=== PATIENT | male | born 1970 | race Caucasian/White ===

== ENCOUNTER → 2018-01-12 | Outpatient (CLI) | payer MEDICAID ==
[~2018-01-12] MED LIST: CEPH-507 PO; CYCL10TA9 PO; DIVA250T2 PO; DOXY100C2 PO; HYDR-3730 PO; HYDR-3812 PO; HYDR-3875 PO; NAPR-243 PO; PRD50T PO; RT-ALBUINH IH; [UNRECOGNIZED DRUG - CODE] PO
--- NOTE | 2018-01-12 14:10 | Diagnostic Imaging Report ---
INDICATION: Right scrotal mass. TECHNIQUE: Multiple Real-time grayscale images were obtained over the scrotum in various projections bilaterally. FINDINGS: The right testicle measures 4.4 x 3.1 x 3.3 cm and the left testicle measures 4.5 x 2.0 x 2.6 cm. Both testes demonstrate homogeneous echotexture. No discrete testicular mass is seen. There is blood flow bilaterally. There is a simple appearing cyst located in the right testicle measuring approximately 11 mm x 6 mm x 7 mm. There is also a large cyst superior to the right testicle measuring 5.1 x 6.7 x 7.7 cm. No other abnormality is seen. IMPRESSION: 1. Simple right testicular cyst. No solid testicular mass or vascular compromise is seen. 2. Large cyst located superior to the right testicle, perhaps a large epididymal head cyst. 3. No other abnormality is seen. Dictated by: Dictated on workstation # [id number]
== END ==
LOC: RAD 11:34
PROVIDERS: ATTEND Urology
DX: N44.2 Benign cyst of testis (principal)
CPT/HCPCS: 76870

== ENCOUNTER 2018-01-18 07:08 | Day surgery (SDC) | payer MEDICAID ==
[~2018-01-18] VITALS: Ht 193 cm; Wt 102.1 kg
[~2018-01-18 07:08] MED LIST changes: -HYDR-3812 PO; -HYDR-3875 PO; -RT-ALBUINH IH
--- NOTE | 2018-01-18 07:15 | Progress Note-Pre Operative ---
Pre-Operative Progress Note H&P Reviewed The H&P was reviewed, patient examined and no changes noted. Date Seen by Provider: January 18, 2018 Time Seen by Provider: 07:40 Date H&P Reviewed: January 18, 2018 Time H&P Reviewed: 07:40 Pre-Operative Diagnosis: RT SPERMATOCELE DANDRE KOHLER MD January 18, 2018 7:15 am
[2018-01-18] MEDS ORDERED: LACTATED RINGERS 1,000 ML IV PRN (07:21)
[2018-01-18 07:25] VITALS: BP 142/82
[2018-01-18] MEDS ORDERED: ceFAZolin INJECTION 1,000 MG in NS (IVPB) 50 ML IV ONE (07:30)
--- NOTE | 2018-01-18 07:42 | Progress Note-Post Operative ---
Post-Operative Progess Note Surgeon (s)/Diamond Sizer (s) Surgeon DANDRE KOHLER MD Diamond Sizer: N/A Pre-Operative Diagnosis RT SPERMATOCELE Post-Operative Diagnosis SAME Procedure & Operative Findings Date of Procedure 01/18/18 Procedure Performed/Findings RT SPERMATOCELECTOMY Anesthesia Type GENERAL Estimated Blood Loss Estimated blood loss (mL): LESS THAN 50 CC Specimens/Packing Specimens Removed RT SPERMATOCELE SAC Packin/4# DANDRE CASTELLANOS MD January 18, 2018 7:42 am
[2018-01-18] MEDS ORDERED: CATHETER FLUSH 10 ML SYR IV PRN (07:45)
--- NOTE | 2018-01-18 07:45 | Discharge Inst-Urology ---
Discharge Inst-Urology Discharge Medications New, Converted, or Re-newed RX: RX on Chart Patient Instructions/Follow Up Plan Please make appointment to been seen in office in 3 weeks. Rest till theN Office tomorrow at 9am to DC drain, may shower after that, no bath Keep bowels soft and moving Scrotal support for 2 weeks Ice to scrotum in RR and at home for 6 hours and then PRN Increase oral fluids for 48 hours and then as needed If questions or concerns contact your physician Or seek help at emergency department. DANDRE KOHLER MD January 18, 2018 7:45 am
[2018-01-18] MEDS ORDERED: RT-ALBUTEROL SULF 2.5 MG/3 ML PRE-MIX VIAL INH ONE (08:00)
[2018-01-18] MEDS ORDERED: HYDR-3812 PO (08:11)
[2018-01-18] MEDS ORDERED: RT-ALBUINH IH (08:11)
[2018-01-18] MEDS ORDERED: proPOfol 200 MG/20 ML (DIPRIVAN) VIAL IV ONE (08:24)
[2018-01-18] MEDS ORDERED: MIDAZOLAM 2 MG/2 ML (VERSED) VIAL ONE (08:24)
[2018-01-18] MEDS ORDERED: fentaNYL INJECTION 100 MCG/2 ML AMP ONE ×2 (08:24→08:58)
[2018-01-18] MEDS ORDERED: LIDOCAINE PF 2% 5 ML (XYLOCAINE) VIAL ONE (08:24)
[2018-01-18] MEDS ORDERED: SEVOFLURANE (ULTANE) 15 ML INHAL SOLN ONE ×3 (08:42→09:44)
[2018-01-18] MEDS ORDERED: ONDANSETRON 4 MG/2 ML (SDV) Z0FRAN ONE (09:11)
[2018-01-18] MEDS ORDERED: DEXAMETHASONE 10 MG/ML (DECADRON) 1 ML VIAL ONE (09:11)
[2018-01-18] MEDS ORDERED: morphine INJ 10 MG/ML 1ML (SYR OR VIAL) ONE (09:38)
[2018-01-18] MEDS: morphine INJ 10 MG/ML 1ML (SYR OR VIAL) IVP PRN ×2 (09:45→09:50)
[2018-01-18] MEDS ORDERED: ONDANSETRON 4 MG/2 ML (SDV) Z0FRAN IVP PRN (09:45)
[2018-01-18] MEDS ORDERED: fentaNYL INJECTION 100 MCG/2 ML AMP IVP PRN (09:45)
[2018-01-18 10:20] VITALS: BP 143/96
--- OUTSIDE RECORDS SUMMARY | 2018-01-18 10:25 | XMS REPORT | Continuity of Care Document ---
Author Author [facility] of [facility] of [facility] Address Unknown Phone Unavailable Allergies Active Description Code Type Severity Reaction Onset Reported/Identified Relationship to Patient Clinical Status Yes codeine [id number] Drug Allergy Mild N/A 07/17/2009 Yes TAPE TAPE Mild N/ A 07/17/2009 Yes aspirin Drug Allergy N/A N/A 10/11/2009 Yes latex OA N/A N/A 10/11/2009 Yes ofloxacin Drug Allergy N/A N/A 10/11/2009 Yes Penicillins Drug Allergy N/A N/A 10/11/2009 Yes tape OA N/A N/A 10/11/2009 Yes ofloxacin [id number] Drug Allergy Mild N/A 01/13/2018 Yes Penicillins [id number] Drug Allergy Unknown N/A 01/13/2018 Medications There is no data. Problems Date Dx Coded Attending Type Code Diagnosis Diagnosed By 10/11/2009 JOEL STARKEY MD 345.9 SEIZURE DISORDER 10/11/2009 JOEL STARKEY MD 586 RENAL FAILURE UNSPECIFIED 03/20/2010 JOEL STARKEY MD 345.90 EPILEPSY, UNSPECIFIED, WITHOUT MENTION OF INTRACTABLE EPILEPSY 06/08/2012 Ot 466.0 06/08/2012 Ot 491.21 06/08/2012 Ot 780.60 09/14/2013 JOEL STARKEY MD 789.00 ABDOMINAL PAIN UNSPECIFIED SITE 11/17/2015 JONI JOLLEY MD Ot N44.2 BENIGN CYST OF TESTIS 11/17/2015 JONI JOLLEY MD Ot N45.3 EPIDIDYMO-ORCHITIS 11/19/2015 JONI JOLLEY MD Ot N44.2 11/19/2015 JONI JOLLEY MD Ot N45.3 12/27/2017 JOBY GALLEGOS Ot F17.200 NICOTINE DEPENDENCE, UNSPECIFIED, UNCOMP 12/27/2017 JOBY GALLEGOS Ot G40.909 EPILEPSY, UNSP, NOT INTRACTABLE, WITHOUT 12/27/2017 JOBY GALLEGOS Ot I25.2 OLD MYOCARDIAL INFARCTION 12/27/2017 JOBY GALLEGOS Ot J44.9 CHRONIC OBSTRUCTIVE PULMONARY DISEASE, U 12/27/2017 JOBY GALLEGOS Ot M25.511 PAIN IN RIGHT SHOULDER 12/27/2017 JOBY GALLEGOS Ot W01.0XXA FALL SAME LEV FROM SLIP/TRIP W/O STRIKE 12/27/2017 JOBY GALLEGOS Ot Y92.[address] 12/27/2017 JOBY GALLEGOS Ot Y93.01 ACTIVITY, WALKING, MARCHING AND HIKING 12/27/2017 JOBY GALLEGOS Ot Z85.068 PERSONAL HISTORY OF MALIGNANT NEOPLASM O 12/27/2017 JOBY GALLEGOS Ot Z87.442 PERSONAL HISTORY OF URINARY CALCULI 12/27/2017 JOBY GALLEGOS Ot Z88.0 ALLERGY STATUS TO PENICILLIN 12/27/2017 JOBY GALLEGOS Ot Z88.1 ALLERGY STATUS TO OTHER ANTIBIOTIC AGENT 12/27/2017 JOBY GALLEGOS Ot Z88.5 ALLERGY STATUS TO NARCOTIC AGENT STATUS 12/27/2017 JOBY GALLEGOS Ot Z91.048 OTHER NONMEDICINAL SUBSTANCE ALLERGY STA 12/27/2017 JOBY GALLEGOS Ot Z95.5 PRESENCE OF CORONARY ANGIOPLASTY IMPLANT 12/29/2017 JOBY GALLEGOS Ot F17.200 NICOTINE DEPENDENCE, UNSPECIFIED, UNCOMP 12/29/2017 JOBY GALLEGOS Ot G40.909 EPILEPSY, UNSP, NOT INTRACTABLE, WITHOUT 12/29/2017 JOBY GALLEOGS Ot I25.2 OLD MYOCARDIAL INFARCTION 12/29/2017 JOBY GALLEGOS Ot J44.9 CHRONIC OBSTRUCTIVE PULMONARY DISEASE, U 12/29/2017 JOBY GALLEGOS Ot M25.511 PAIN IN RIGHT SHOULDER 12/29/2017 JOBY GALLEGOS Ot W01.0XXA FALL SAME LEV FROM SLIP/TRIP W/O STRIKE 12/29/2017 JOBY GALLEGOS Ot Y92.[address] 12/29/2017 JOBY GALLEGOS Ot Y93.01 ACTIVITY, WALKING, MARCHING AND HIKING 12/29/2017 JOBY GALLEGOS Ot Z85.068 PERSONAL HISTORY OF MALIGNANT NEOPLASM O 12/29/2017 JOBY GALLEGOS Ot Z87.442 PERSONAL HISTORY OF URINARY CALCULI 12/29/2017 JOBY GALLEGOS Ot Z88.0 ALLERGY STATUS TO PENICILLIN 12/29/2017 JOBY GALLEGOS Ot Z88.1 ALLERGY STATUS TO OTHER ANTIBIOTIC AGENT 12/29/2017 JOBY GALLEGOS Ot Z88.5 ALLERGY STATUS TO NARCOTIC AGENT STATUS 12/29/2017 JOBY GALLEGOS Ot Z91.048 OTHER NONMEDICINAL SUBSTANCE ALLERGY STA 12/29/2017 JOBY GALLEGOS Ot Z95.5 PRESENCE OF CORONARY ANGIOPLASTY IMPLANT 01/13/2018 DANDRE KOHLER MD Ot N44.2 BENIGN CYST OF TESTIS 01/13/2018 DANDRE KOHLER MD Ot N44.2 BENIGN CYST OF TESTIS 01/13/2018 DANDRE KOHLER MD, Ot N44.2 BENIGN CYST OF TESTIS Procedures There is no data. Results There is no data. Encounters ACCT No. Visit Date/Time Discharge Status Pt. Type Provider Facility Loc./Unit Complaint [id number] 09/14/2013 16:06:00 09/14/2013 23:59:59 CLS Outpatient JOEL STARKEY MD [id number] 01/13/2018 13:30:00 01/13/2018 16:50:00 DIS Outpatient DANDRE KOHLER MD [facility] PREOP RIGHT SPERMATOCELECTOMY [id number] 01/12/2018 11:34:00 01/12/2018 23:59:59 CLS Outpatient DANDRE KOHLER MD [facility] RAD SCROTAL MASS [id number] 12/27/2017 18:55:00 12/27/2017 21:28:00 DIS Emergency JOBY GALLEGOS [facility] ER POST SHOULDER SURGERY/ FALL/R SHOULDER INJ [id number] 11/17/2015 15:34:00 11/17/2015 17:41:00 DIS Emergency JONI JOLLEY MD [facility] ER TESTICLE PAIN [id number] 01/18/2018 07:42:00 Document Registration [id number] 06/08/2012 11:18:00 Document Registration [id number] 05/16/2014 08:52:24 05/16/2014 08:52:24 DIS Outpatient [id number] 05/12/2017 15:00:00 05/12/2017 23:59:59 CLS Outpatient IVONNE LAGUNA[facility]
--- NOTE | 2018-01-18 10:41 | Anesthesia-General Post-Op ---
General Patient Condition Mental Status/LOC: Same as Preop Cardiovascular: Satisfactory Nausea/Vomiting: Absent Respiratory: Satisfactory Pain: Controlled Complications: Absent Post Op Complications Complications None Follow Up Care/Instructions Patient Instructions None needed. Anesthesia/Patient Condition Patient Condition Patient is doing well, no complaints, stable vital signs, no apparent adverse anesthesia problems. No complications reported per nursing. D/C home per [facility] Criteria: Yes MANJEET WEBB CRNA January 18, 2018 10:41
[2018-01-18] MEDS ORDERED: HYDR-3875 PO (10:42)
[2018-01-18] MEDS ORDERED: CEPH-507 PO (10:42)
[2018-01-18 10:50] VITALS: BP 136/75
[2018-01-18] MEDS ORDERED: HYDROcodone/APAP 7.5 MG/325 MG (LORTAB, LORCET PLUS) TABLET PO ONE (11:15)
[2018-01-18 11:20] VITALS: BP 128/83
[2018-01-18 12:00] VITALS: BP 128/83
--- NOTE | 2018-01-18 14:40 | OPERATIVE REPORT ---
DATE OF SERVICE: 01/18/2018 PREOPERATIVE DIAGNOSIS: Right large spermatocele. POSTOPERATIVE DIAGNOSIS: Right large spermatocele. OPERATION PERFORMED: Right spermatocelectomy. SURGEON: Dandre Kohler MD ANESTHESIA: General. COMPLICATIONS: None. DESCRIPTION OF PROCEDURE: Under satisfactory general anesthesia, the patient in supine position, genitalia abdomen and thigh were prepped and draped in the usual sterile fashion. An incision was made in the median raphe carried through the right scrotal compartment. Bleeders were cauterized as the dissection was proceeding. The large spermatocele and testicle was delivered into the wound. The spermatocele was dissected and excised completely. The feeding vessels were suture and ligated with 3-0 chromic catgut. The edges of the coverage of over the spermatocele were sutured with running 3-0 chromic catgut to prevent recurrence and for hemostasis. Hemostasis was complete. The testicle looked fine as well as the epididymis and were put back into the right scrotal compartment, which was drained with quarter of an inch Sandra drain, brought through a separate stab wound in the bottom of the incision and secured in position with 3-0 chromic catgut suture. Closure was performed in 2 layers, first the dartos with a running 3-0 chromic catgut avoiding the drain and then the skin was interrupted 4-0 Vicryl. Telfa, fluffs and scrotal support was applied. Estimated blood loss was negligible. Needle, sponge and instrument counts correct x2. The patient tolerated the procedure well and anesthesia well and was sent to recovery room in stable condition wearing a scrotal support. Job ID: [id number] DocumentID: [id number] Dictated Date: 01/18/2018 09:47:10 Back Tender Paper Machine Date: 01/18/2018 14:40:12 Dictated By: DANDRE KOHLER MD
== END 2018-01-18 12:00 | disposition home or self-care (01) ==
LOC: SDC 07:08
PROVIDERS: ATTEND Urology
DX: N43.41 Spermatocele of epididymis, single (principal); I25.10 Atherosclerotic heart disease of native coronary artery without angina pectoris; J44.9 Chronic obstructive pulmonary disease, unspecified; F17.210 Nicotine dependence, cigarettes, uncomplicated; G40.909 Epilepsy, unspecified, not intractable, without status epilepticus; Z95.5 Presence of coronary angioplasty implant and graft
CPT/HCPCS: 87081; 88304; 94640

== ENCOUNTER 2018-11-26 22:00 | Emergency (ER) | payer MEDICAID ==
[~2018-11-26] VITALS: Ht 193 cm; Wt 102.1 kg
[~2018-11-26 22:00] MED LIST changes: +HYDR-3812 PO; +HYDR-3875 PO; +RT-ALBUINH IH
--- OUTSIDE RECORDS SUMMARY | 2018-11-26 22:08 | XMS REPORT | Continuity of Care Document ---
Author Author [facility] of [facility] C[facility] of [facility] Address Unknown Phone Unavailable Allergies Active Description Code Type Severity Reaction Onset Reported/Identified Relationship to Patient Clinical Status Yes codeine [id number] Drug Allergy Mild N/A 07/17/2009 Yes TAPE TAPE Mild N/ A 07/17/2009 Yes aspirin Drug Allergy N/A N/A 10/11/2009 Yes latex OA N/A N/A 10/11/2009 Yes ofloxacin Drug Allergy N/A N/A 10/11/2009 Yes Penicillins Drug Allergy N/A N/A 10/11/2009 Yes tape OA N/A N/A 10/11/2009 Yes ofloxacin [id number] Drug Allergy Mild N/A 01/13/2018 Yes Penicillins [id number] Drug Allergy Unknown N/A 01/13/2018 Yes aspirin [id number] Drug Allergy Unknown N/A 01/18/2018 Yes latex [id number] Drug Allergy Unknown N/A 01/18/2018 Yes Penicillins [id number] Drug Allergy Unknown Pt has received 01/18/2018 Medications There is no data. Problems Date Dx Coded Attending Type Code Diagnosis Diagnosed By 10/11/2009 JOEL STARKEY MD 345.9 SEIZURE DISORDER 10/11/2009 JOEL STARKEY MD 586 RENAL FAILURE UNSPECIFIED 03/20/2010 JOEL STAKREY MD 345.90 EPILEPSY, UNSPECIFIED, WITHOUT MENTION OF [...] EPILEPSY, UNSP, NOT INTRACTABLE, WITHOUT 12/29/2017 JOBY GALLEGOS Ot I25.2 OLD MYOCARDIAL INFARCTION 12/29/2017 JOBY [...] OF TESTIS 01/13/2018 DANDRE KOHLER MD Ot N43.41 SPERMATOCELE OF EPIDIDYMIS, SINGLE 01/13/2018 ADNDRE KOHLER MD Ot Z01.818 ENCOUNTER FOR OTHER PREPROCEDURAL EXAMIN 01/17/2018 DANDRE KOHLER MD Ot N43.41 SPERMATOCELE OF EPIDIDYMIS, SINGLE 01/17/2018 DANDRE KOHLER MD Ot Z01.818 ENCOUNTER FOR OTHER PREPROCEDURAL EXAMIN 01/18/2018 DANDRE KOHLER MD Ot N44.2 BENIGN CYST OF TESTIS 01/18/2018 DANDRE KOHLER MD Ot N44.2 BENIGN CYST OF TESTIS 01/18/2018 DANDRE KOHLER MD Ot F17.210 NICOTINE DEPENDENCE, CIGARETTES, UNCOMPL 01/18/2018 DANDRE KOHLER MD Ot G40.909 EPILEPSY, UNSP, NOT INTRACTABLE, WITHOUT 01/18/2018 DANDRE KOHLER MD, Ot I25.10 ATHSCL HEART DISEASE OF [place] CORONARY 01/18/2018 DANDRE KOHLER MD Ot J44.9 CHRONIC OBSTRUCTIVE PULMONARY DISEASE, U 01/18/2018 DANDRE KOHLER MD Ot N43.41 SPERMATOCELE OF EPIDIDYMIS, SINGLE 01/18/2018 DANDRE KOHLER MD Ot Z95.5 PRESENCE OF CORONARY ANGIOPLASTY IMPLANT 01/27/2018 DANDRE KOHLER MD Ot N44.2 BENIGN CYST OF TESTIS Procedures There is no data. Results Test Result Range Methicillin resistant Staphylococcus aureus (MRSA) screening culture - 07:40 Methicillin resistant Staphylococcus aureus (MRSA) screening culture NEG NRG Encounters ACCT No. Visit Date/Time Discharge Status Pt. Type Provider Facility Loc./Unit Complaint [id number] 09/14/2013 16:06:00 09/14/2013 23:59:59 CLS Outpatient JOEL STARKEY MD [id number] 01/18/2018 07:08:00 01/18/2018 12:00:00 DIS Outpatient DANDRE KOHLER MD [facility] SDC RIGHT SPERMATOCELE [id number] 01/13/2018 13:30:00 01/13/2018 16:50:00 DIS Outpatient DANDRE KOHLER MD [facility] PREOP RIGHT SPERMATOCELECTOMY [id number] 01/12/2018 11:34:00 01/12/2018 23:59:59 CLS Outpatient DANDRE KOHLER MD [facility] RAD SCROTAL MASS [id number] 12/27/2017 18:55:00 12/27/2017 21:28:00 DIS Emergency JOBY GALLEGOS [facility] ER POST SHOULDER SURGERY/ FALL/R SHOULDER INJ [id number] 11/17/2015 15:34:00 11/17/2015 17:41:00 DIS Emergency JONI JOLLEY MD [facility] ER TESTICLE PAIN [id number] 06/08/2012 11:18:00 Document Registration [id number] 05/16/2014 08:52:24 05/16/2014 08:52:24 DIS Outpatient [id number] 05/12/2017 15:00:00 05/12/2017 23:59:59 CLS Outpatient IVONNE LAGUNA, ALEX [facility]ta [facility]
[2018-11-26] MEDS ORDERED: RT-ALBUINH INH (22:21)
[2018-11-26] MEDS ORDERED: IBUP-1780 PO (22:21)
[2018-11-26] MEDS ORDERED: BUDE10.2 IH (22:21)
[2018-11-26] MEDS ORDERED: HYDR-4226 PO (22:21)
[2018-11-26] MEDS ORDERED: CLIN300C11 PO (22:21)
[2018-11-26] MEDS ORDERED: CLINDAMYCIN 150 MG (CLEOCIN) CAP PO ONE (22:30)
[2018-11-26] MEDS ORDERED: IBUPROFEN 800 MG (MOTRIN) TAB PO ONE (22:30)
[2018-11-26] MEDS ORDERED: HYDROcodone/APAP 5 MG/325 MG (LORTAB) TAB PO ONE (22:30)
--- NOTE | 2018-11-26 22:38 | ED General ---
General Stated Complaint: FACIAL INJURY/HEADACHE Source of Information: Patient History of Present Illness Date Seen by Provider: Nov 26, 2018 Time Seen by Provider: 22:35 Initial Comments Patient is a 48-year-old male who presents to the emergency department with dental pain. He states he sustained a minor fall yesterday. He had a broken tooth in the back of his lower right jaw which had been cavitation is for some time. He thinks he struck this tooth and further broke it when he fell. He feels like it there is some infection developing around it. No fever or chills. He has some diffuse headaches but no vision changes or nausea or vomiting. No other complaints today. Patient states he can see a dentist but will not be till 2 days from now. Allergies and Home Medications Allergies Coded Allergies: ofloxacin (Unverified Allergy, Mild, 01/13/18) Penicillins (Unverified Adverse Reaction, Unknown, Pt has received Ceftriaxone in the past, 01/18/18) aspirin (Unverified Adverse Reaction, Unknown, 01/18/18) latex (Unverified Adverse Reaction, Unknown, 01/18/18) Uncoded Allergies: TAPE (Allergy, Mild, 07/17/09) Home Medications Albuterol Sulfate 1 Puff Puff, 2 PUFF IH Q4H, (Reported) 1 PUFF = 90 MCG Albuterol Sulfate 1 Puff Puff, 2 PUFF INH Q4H 1 PUFF = 90 MCG Prescribed by: TERESO LOMELI on 11/26/182220 Budesonide/Formoterol Fumarate 10.2 Gm Hfa.aer.ad, 2 PUFF IH BID Prescribed by: TERESO LOMELI on 11/26/182220 Cephalexin 500 Mg Capsule, 500 MG PO BID Prescribed by: JAZ DEL TORO on 01/18/18 104 Clindamycin HCl 300 Mg Capsule, 300 MG PO QID Prescribed by: TERESO LOMELI on 11/26/182220 Hydrocodone/Acetaminophen 1 Each Tablet, 1-2 EACH PO Q4H PRN for PAIN-MODERATE Prescribed by: JAZ DEL TORO on 01/18/18 104 Hydrocodone/Acetaminophen 1 Each Tablet, 2 TAB PO Q6H Prescribed by: TERESO LOMELI on 11/26/182220 Ibuprofen 800 Mg Tablet, 800 MG PO Q8H PRN for PAIN Prescribed by: TERESO LOMELI on 11/26/18 2221 Patient Home Medication List Home Medication List Reviewed: Yes Review of Systems Review of Systems Constitutional: no symptoms reported EENTM: see HPI Respiratory: no symptoms reported Genitourinary: no symptoms reported Musculoskeletal: no symptoms reported Skin: no symptoms reported Past Tiruhqr-Kbaamg-Sfcfux Hx Patient Social History Type Used: Cigarettes Recent Foreign Travel: No Contact w/Someone Who Travel: No Recent Hopitalizations: No Immunizations Up To Date PED Vaccines UTD: Yes Seasonal Allergies Seasonal Allergies: No Past Medical History Surgeries: Yes (hernia repair, left testicle injury, brain surgery) Coronary Stent, Orthopedic Respiratory: Yes COPD Cardiac: Yes Heart Attack Neurological: Yes Seizure Disorder Reproductive Disorders: No Sexually Transmitted Disease: No HIV/AIDS: No Genitourinary: Yes Kidney Stones Gastrointestinal: No Musculoskeletal: No Endocrine: No Loss of Vision: Bilateral Cancer: Yes Pancreatic Psychosocial: No Blood Disorders: No Adverse Reaction/Blood Tranf: No (N/A) Family Medical History No Pertinent Family Hx Physical Exam Vital Signs Capillary Refill : Height, Weight, BMI Height: 6'4.00" Weight: 225lbs. 0.0oz. 102.854832cn; 27.4 BMI Method:Stated General Appearance: No Apparent Distress, WD/WN HEENT: PERRL/EOMI, TMs Normal, Other (poor dentition. In the area of concern, there is a small amount of erythema around the most posterior molar on the right mandibular area. There is no fluctuant area or abscess seen during this exam. The tooth is completely broken off to the roots and appears infected neck is supple. There is some minor lymphadenopathy associated with the current infection) Progress/Results/Core Measures Suspected Sepsis SIRS Temperature: Pulse: Respiratory Rate: Blood Pressure / Mean: Results/Orders My Orders Orders - TERESO LOMELI DO Hydrocodone/Apap 5/325 Tablet (Lortab 5 (11/26/18 22:30) Ibuprofen Tablet (Motrin Tablet) (11/26/18 22:30) Clindamycin Capsule (Cleocin Capsule) (11/26/18 22:30) Vital Signs/I&O Capillary Refill : Progress Note : Time: 22:37 Progress Note Patient is seen in the ER for a dental infection. He can see a dentist in 48 hours. In the ER, he was given a by mouth clindamycin, ibuprofen, and Prospect for pain. He was discharged home with the same medications. On physical exam, he was noted to have wheezes bilaterally but with good air movement. The patient does have a known history of lung disease and is an extensive tobacco user. He is uncertain if he has inhalers at home. He is discharged home with medications for his tooth including Prospect, ibuprofen, clindamycin. He is also provided refills on his Symbicort and albuterol inhalers. He is advised follow-up with his dentist as soon as possible. Return to the ER for any new or worsening symptoms. Departure Impression Primary Impression: Closed head injury Additional Impression: Dental infection Disposition: HOME, SELF-CARE Condition: Improved Departure-Patient Inst. Patient Instructions: COPD Including Emphysema (DC), Closed Head Injury (DC), Dental Pain (DC) Scripts Clindamycin HCl (Clindamycin HCl) 300 Mg Capsule 300 MG PO QID, #40 CAP Prov: TERESO LOMELI DO 11/26/18 Albuterol Sulfate (VENTOLIN HFA) 1 Puff Puff 2 PUFF INH Q4H for Wheezing, #1 INHALER 1 Refill 1 PUFF = 90 MCG Prov: TERESO LOMELI DO 11/26/18 Budesonide/Formoterol Fumarate (Symbicort 160-4.5 Mcg Inhaler) 10.2 Gm Hfa.aer.ad 2 PUFF IH BID, #1 INHALER 1 Refill Prov: TERESO LOMELI DO 11/26/18 Hydrocodone/Acetaminophen (Prospect 5-325 Tablet) 1 Each Tablet 2 TAB PO Q6H for Pain MDD 10 TABS, #20 TAB Prov: TERESO LOMELI DO 11/26/18 Ibuprofen (Ibuprofen) 800 Mg Tablet 800 MG PO Q8H PRN for PAIN, #30 TAB 0 Refills Prov: TERESO LOMELI DO 11/26/18 TERESO LOMELI DO Nov 26, 2018 22:38
[2018-11-26 22:47] VITALS: BP 152/86
== END 2018-11-26 22:46 | disposition home or self-care (01) ==
LOC: EDUNIT# 22:00 → ER FS 22:02
DX: S09.90XA Unspecified injury of head, initial encounter (principal); K04.7 Periapical abscess without sinus; J44.9 Chronic obstructive pulmonary disease, unspecified; I25.2 Old myocardial infarction; G40.909 Epilepsy, unspecified, not intractable, without status epilepticus; Z85.07 Personal history of malignant neoplasm of pancreas; Z87.442 Personal history of urinary calculi; Z88.0 Allergy status to penicillin; Z88.6 Allergy status to analgesic agent; Z88.1 Allergy status to other antibiotic agents; Z91.040 Latex allergy status; Z98.890 Other specified postprocedural states; Z87.820 Personal history of traumatic brain injury; Z95.5 Presence of coronary angioplasty implant and graft; W19.XXXA Unspecified fall, initial encounter
CPT/HCPCS: 99283

== ENCOUNTER 2019-07-17 12:58 | Observation (INO) | payer MEDICAID ==
[~2019-07-17] VITALS: Ht 198.1 cm; Wt 103.1 kg
[~2019-07-17 12:58] MED LIST changes: +BUDE10.2 IH; +CLIN300C11 PO; +HYDR-4226 PO; +IBUP-1780 PO; +RT-ALBUINH INH
[2019-07-17 14:05] LABS: HEMATOCRIT 45 % (40-54); MEAN CORPUSCULAR HEMOGLOBIN 31 PG (25-34); WHITE BLOOD COUNT 6.7 10^3/uL (4.3-11.0)
--- NOTE | 2019-07-17 14:05 | Diagnostic Imaging Report ---
INDICATION: Chest pain. PA and lateral chest at 01:30 p.m. Heart and mediastinal silhouette are normal in appearance. There is hyperinflation compatible with COPD. There is no focal infiltrate, pneumothorax, or pleural fluid. IMPRESSION: COPD changes with no acute process in the chest. Dictated by: Dictated on workstation # [id number]
[2019-07-17 14:06] LABS: BASOPHILS % (AUTO) 0 % (0-10); EOSINOPHILS # (AUTO) 0.1 10^3/uL (0.0-0.3); EOSINOPHILS % (AUTO) 1 % (0-10); LYMPHOCYTES # (AUTO) 1.5 X 10^3 (1.0-4.0); LYMPHOCYTES % (AUTO) 22 % (12-44); MEAN CORPUSCULAR HGB CONC 35 G/DL (32-36); MEAN CORPUSCULAR VOLUME 88 FL (80-99); MEAN PLATELET VOLUME 9.9 FL (7.4-10.4); MONOCYTES # (AUTO) 0.4 X 10^3 (0.0-1.0); MONOCYTES % (AUTO) 7 % (0-12); NEUTROPHILS # (AUTO) 4.6 X 10^3 (1.8-7.8); NEUTROPHILS % (AUTO) 70 % (42-75); PLATELET COUNT 158 10^3/uL (130-400); RED CELL DISTRIBUTION WIDTH 12.7 % (10.0-14.5)
[2019-07-17 14:17] LABS: BILIRUBIN,TOTAL 0.5 MG/DL (0.1-1.0); BUN/CREATININE RATIO 10; CALCIUM 9.5 MG/DL (8.5-10.1); CARBON DIOXIDE 24 MMOL/L (21-32); CHLORIDE 100 MMOL/L (98-107); CREATININE SERUM 1.01 MG/DL (0.60-1.30); GFR ESTIMATED > 60; GLUCOSE 147 MG/DL (70-105); POTASSIUM 4.2 MMOL/L (3.6-5.0); SODIUM 138 MMOL/L (135-145)
[2019-07-17 14:18] LABS: ALANINE AMINOTRANSFERASE 10 U/L (0-55); ALBUMIN 4.1 GM/DL (3.2-4.5); ALKALINE PHOSPHATASE 75 U/L (40-136); TOTAL PROTEIN 6.6 GM/DL (6.4-8.2)
--- NOTE | 2019-07-17 14:31 | ED General ---
General Chief Complaint: Chest Pain Stated Complaint: RED STREAKING; CHEST PAIN Source of Information: Patient History of Present Illness Date Seen by Provider: Jul 17, 2019 Time Seen by Provider: 14:04 Initial Comments 49-year-old male presenting with complaints of stinging or burning sensation to the tip of his right index finger. This it started last night and he did not think much of it. Since then he's had redness that has spread up his index finger and all the way up his arm onto his chest. This was also causing him some aching pain in his chest. He has some swelling to his right index finger as well. He has reported some subjective fever and chills. He is unsure what initially started the issue on his finger. He does not remember any specific bite or cut to his finger. He has not had something like this happen before. The redness and swelling has progressed in less than 24 hours. Allergies and Home Medications Allergies Coded Allergies: ofloxacin (Verified Allergy, Mild, 07/17/19) Penicillins (Verified Adverse Reaction, Unknown, Pt has received Ceftriaxone in the past, 07/17/19) aspirin (Verified Adverse Reaction, Unknown, 07/17/19) latex (Verified Adverse Reaction, Unknown, 07/17/19) Uncoded Allergies: TAPE (Allergy, Mild, 07/17/09) Home Medications Albuterol Sulfate 1 Puff Puff, 2 PUFF IH Q4H, (Reported) 1 PUFF = 90 MCG Albuterol Sulfate 1 Puff Puff, 2 PUFF INH Q4H 1 PUFF = 90 MCG Prescribed by: TERESO LOMELI on 11/26/182220 Budesonide/Formoterol Fumarate 10.2 Gm Hfa.aer.ad, 2 PUFF IH BID Prescribed by: TERESO LOMELI on 11/26/182220 Cephalexin 500 Mg Capsule, 500 MG PO BID Prescribed by: JAZ DEL TORO on 01/18/18 104 Clindamycin HCl 300 Mg Capsule, 300 MG PO QID Prescribed by: TERESO LOMELI on 11/26/182220 Hydrocodone/Acetaminophen 1 Each Tablet, 1-2 EACH PO Q4H PRN for PAIN-MODERATE Prescribed by: JAZ DEL TORO on 01/18/18 104 Hydrocodone/Acetaminophen 1 Each Tablet, 2 TAB PO Q6H Prescribed by: TERESO LOMELI on 11/26/182220 Ibuprofen 800 Mg Tablet, 800 MG PO Q8H PRN for PAIN Prescribed by: TERESO LOMELI on 11/26/182220 Patient Home Medication List Home Medication List Reviewed: Yes Review of Systems Review of Systems Constitutional: chills, fever, malaise EENTM: no symptoms reported Respiratory: cough (chronic smoker's cough); No stridor; wheezing Cardiovascular: chest pain (aching pain on the right upper chest and shoulder area where he has redness from the streaking on his arm) Gastrointestinal: nausea; No vomiting Genitourinary: no symptoms reported Musculoskeletal: see HPI, other (some aching pain extending up his right arm where he has the redness) Skin: see HPI, change in color (redness and mild swelling streaking up from his right index finger all the way up his arm onto his chest wall) Psychiatric/Neurological: No Symptoms Reported Past Zsvbhtv-Utrexx-Wiuolc Hx Past Med/Social Hx: Reviewed Nursing Past Med/Soc Hx Patient Social History Alcohol Beverage of Choice: Beer Type Used: Cigarettes Recent Foreign Travel: No Recent Hopitalizations: No Immunizations Up To Date PED Vaccines UTD: Yes Seasonal Allergies Seasonal Allergies: No Past Medical History Surgeries: Yes (hernia repair, left testicle injury, brain surgery) Coronary Stent, Orthopedic Respiratory: Yes COPD Cardiac: Yes (STENT) Heart Attack Neurological: Yes Seizure Disorder Reproductive Disorders: No Sexually Transmitted Disease: No HIV/AIDS: No Genitourinary: Yes Kidney Stones Gastrointestinal: No Musculoskeletal: No Endocrine: No Loss of Vision: Bilateral Cancer: Yes (GETTING SECOND OPINION) Pancreatic Psychosocial: No Integumentary: No Blood Disorders: No Adverse Reaction/Blood Tranf: No (N/A) Family Medical History No Pertinent Family Hx Physical Exam Vital Signs Vital Signs - First Documented 07/17/19 13:15 Temp 36.3 Pulse 82 Resp 13 B/P (MAP) 138/76 (96) Pulse Ox 98 Capillary Refill : Height, Weight, BMI Height: 6'4.00" Weight: 225lbs. 0.0oz. 102.948965vc; 27.4 BMI Method:Stated General Appearance: No Apparent Distress, WD/WN HEENT: Normal ENT Inspection, Pharynx Normal Neck: Non Tender, Supple Respiratory: Chest Non Tender, No Accessory Muscle Use, No Respiratory Distress, Rhonci, Wheezing Cardiovascular: Regular Rate, Rhythm, Normal Peripheral Pulses Gastrointestinal: No Pulsatile Mass, Non Tender, Soft Extremity: Normal Capillary Refill, No Pedal Edema, Inflammation (redness and streaking up his right arm with mild tenderness over these areas), Swelling (and mild swelling to his right index finger and over the red streaks up his arm) Neurologic/Psychiatric: Alert, Oriented x3, No Motor/Sensory Deficits, sales assoc II- XII Norm as Tested Skin: Warm/Dry, Erythema (with mild swelling to right index finger and streaking up his arm to his chest) Focused Exam Lactate Level 07/17/19 14:45: Lactic Acid Level 1.65 Lactic Acid Level Progress/Results/Core Measures Suspected Sepsis SIRS Temperature: Pulse: Respiratory Rate: Laboratory Tests 07/17/19 13:45: White Blood Count 6.7 Blood Pressure / Mean: 07/17/19 14:45: Lactic Acid Level 1.65 Laboratory Tests 07/17/19 13:45: Creatinine 1.01, Platelet Count 158, Total Bilirubin 0.5 Results/Orders Lab Results Laboratory Tests Test 07/17/19 13:45 07/17/19 14:45 Range/Units White Blood Count 6.7 4.3-11.0 10^3/uL Red Blood Count 5.13 4.35-5.85 10^6/uL Hemoglobin 16.0 13.3-17.7 G/DL Hematocrit 45 40-54 % Mean Corpuscular Volume 88 80-99 FL Mean Corpuscular Hemoglobin 31 25-34 PG Mean Corpuscular Hemoglobin Concent 35 32-36 G/DL Red Cell Distribution Width 12.7 10.0-14.5 % Platelet Count 158 130-400 10^3/uL Mean Platelet Volume 9.9 7.4-10.4 FL Neutrophils (%) (Auto) 70 42-75 % Lymphocytes (%) (Auto) 22 12-44 % Monocytes (%) (Auto) 7 0-12 % Eosinophils (%) (Auto) 1 0-10 % Basophils (%) (Auto) 0 0-10 % Neutrophils # (Auto) 4.6 1.8-7.8 X 10^3 Lymphocytes # (Auto) 1.5 1.0-4.0 X 10^3 Monocytes # (Auto) 0.4 0.0-1.0 X 10^3 Eosinophils # (Auto) 0.1 0.0-0.3 10^3/uL Basophils # (Auto) 0.0 0.0-0.1 10^3/uL Sodium Level 138 135-145 MMOL/L Potassium Level 4.2 3.6-5.0 MMOL/L Chloride Level 100 98-107 MMOL/L Carbon Dioxide Level 24 21-32 MMOL/L Anion Gap 14 5-14 MMOL/L Blood Urea Nitrogen 10 7-18 MG/DL Creatinine 1.01 0.60-1.30 MG/DL Estimat Glomerular Filtration Rate > 60 BUN/Creatinine Ratio 10 Glucose Level 147 H 70-105 MG/DL Calcium Level 9.5 8.5-10.1 MG/DL Corrected Calcium 9.4 8.5-10.1 MG/DL Total Bilirubin 0.5 0.1-1.0 MG/DL Aspartate Amino Transf (AST/SGOT) 11 5-34 U/L Alanine Aminotransferase (ALT/SGPT) 10 0-55 U/L Alkaline Phosphatase 75 40-136 U/L Total Protein 6.6 6.4-8.2 GM/DL Albumin 4.1 3.2-4.5 GM/DL Lactic Acid Level 1.65 0.50-2.00 MMOL/L My Orders Orders - SERGE LIGHT MD Cbc With Automated Diff (07/17/19 13:30) Comprehensive Metabolic Panel (07/17/19 13:30) Blood Culture (07/17/19 13:30) Chest Pa/Lat (2 View) (07/17/19 13:30) Ed Iv/Invasive Line Start (07/17/19 13:30) Lactic Acid Analyzer (07/17/19 13:30) Ekg Tracing (07/17/19 13:30) Monitor-Rhythm Ecg Trace Only (07/17/19 13:30) Vancomycin Injection (Vancomycin Injecti (07/17/19 16:00) Cefepime Injection (Maxipime Injection) (07/17/19 16:00) Medications Given in ED Current Medications Medications Dose Ordered Sig/Alis Route Start Time Stop Time Status Last Admin Dose Admin Cefepime HCl 2000 mg/Sterile Water 20 ml @ 240 mls/hr ONCE ONCE IV 07/17/19 16:00 07/17/19 16:04 DC 07/17/19 16:37 240 MLS/HR Vancomycin HCl 1000 mg/Sodium Chloride 250 ml @ 250 mls/hr ONCE ONCE IV 07/17/19 16:00 07/17/19 16:59 DC 07/17/19 16:42 250 MLS/HR Vital Signs/I&O 07/17/19 07/17/19 07/17/19 07/17/19 13:15 14:30 17:35 17:35 Temp 36.3 36.3 36.2 36.2 Pulse 82 82 73 73 Resp 13 13 18 18 B/P (MAP) 138/76 (96) 138/76 140/70 140/70 (93) Pulse Ox 98 98 98 98 O2 Delivery Room Air Room Air 07/17/19 07/17/19 07/17/19 07/17/19 18:03 18:57 19:37 20:11 Temp 37.6 Pulse 73 75 81 Resp 14 18 B/P (MAP) 131/75 145/80 (101) Pulse Ox 97 94 96 O2 Delivery Room Air Room Air 07/17/19 07/17/19 20:50 21:08 O2 Delivery Room Air Room Air Capillary Refill : Progress Note #1: Progress Note Obtain labs and lactic acid. With his sudden progression of the lymphangitis and redness that has spread from his finger up onto his chest wall there is concern for bacteremia and need for IV antibiotics. Once the blood cultures are obtained will check with the hospitalist about admission as an unassigned patient since he does not have a primary provider. Progress Note #2: Progress Note Labs are stable without elevation of his white blood cell count. His lactic acid is normal. However again due to the rapid onset and spread of the redness all the way up onto his chest wall and not having a primary provider to have timely follow-up the patient will be admitted to the hospitalist service. Discussed with Dr. Johnson and she accepted the patient for admission. Will start him on vancomycin and cefepime. Diagnostic Imaging Diagonstic Imaging: Xray Plain Films/CT/US/NM/MRI: chest Comments NAME: ALEA COYNE JR [facility] REC#: [id number] PT STATUS: REG ER : 1970 PHYSICIAN: SERGE LIGHT MD ADMIT DATE: 07/17/19/ER FS Draft POSDate of Exam:07/17/19 CHEST PA/LAT (2 VIEW) INDICATION: Chest pain. PA and lateral chest at 01:30 p.m. Heart and mediastinal silhouette are normal in appearance. There is hyperinflation compatible with COPD. There is no focal infiltrate, pneumothorax, or pleural fluid. IMPRESSION: COPD changes with no acute process in the chest. Dictated on workstation # [id number] Dict: 07/17/19 1401 Trans: 07/17/19 1405 [id number] Interpreted by: LUCAS GALLEGOS MD Electronically signed by: Departure Communication (Admissions) Time/Spoke to Admitting Phy: 15:[address] Johnson and she was agreeable with the observation admission provided that orthopedics was available for consultation in case the finger and hand became worse. Time/Spoke to Consulting Phy: 15:[address] Montoya from orthopedics and he agreed to see the patient in consult as needed. Impression Primary Impression: Lymphangitis Additional Impression: Cellulitis of right arm Disposition: ADMITTED INPATIENT Condition: Stable Admissions Decision to Admit Reason: Admit from ER (General) Decision to Admit/Date: Jul 17, 2019 Time/Decision to Admit Time: 15:32 Departure-Patient Inst. Referrals: NO,LOCAL PHYSICIAN (PCP/Family) Primary Care Physician SERGE LIGHT MD Jul 17, 2019 14:31 POS
--- NOTE | 2019-07-17 15:45 | NUR ---
Charge nurse contacted for a med surg bed.
--- NOTE | 2019-07-17 15:46 | NUR ---
Pt calm and cooperative with mother at bedside. Pt ambulatory outside numerous times to make phone calls. Pt made aware of pending admission.
[2019-07-17] MEDS ORDERED: CEFEPIME INJECTION 2,000 MG in WATER (STERILE) FOR INJECTION 20 ML IV ONE (16:00)
[2019-07-17] MEDS ORDERED: VANCOMYCIN INJECTION 1,000 MG in NS (IVPB) 250 ML IV ONE (16:00)
[2019-07-17] MEDS ORDERED: CEFEPIME 2 GM (MAXIPIME) VIAL ONE (16:30)
[2019-07-17] MEDS ORDERED: WATER (STERILE) FOR INJECTION 20 ML ONE (16:31)
[2019-07-17] MEDS ORDERED: NS (IVPB) 250 ML ONE (16:34)
[2019-07-17] MEDS ORDERED: VANCOMYCIN 1000 MG/VIAL ONE (16:34)
--- NOTE | 2019-07-17 16:47 | NUR ---
vanc continued in route to [place] with EMS
[2019-07-17 17:35] VITALS: BP 140/70
--- NOTE | 2019-07-17 17:37 | NUR ---
ALEA COYNE JR admitted to room 409-1, with an admitting diagnosis of Right upper ext cellulitis, on 07/17/19 from [facility] via EMS transport, accompanied by staff.ALEA COYNE JR introduced to surroundings, call light, bed controls, phone, TV, temperature control, lights, meal times, smoking policy, visitor policy, side rail policy, bathrooms and showers. ALEA COYNE JR verbalizes understanding that [facility] is not responsible for the loss or damage to any personal effects or valuables that are kept in the patients posession during their hospitalization. Patient was informed about the Rapid Response Team and its purpose.
--- NOTE | 2019-07-17 17:38 | NUR ---
PT left floor to go downstairs at this time
--- NOTE | 2019-07-17 18:07 | NUR ---
CR 1.01; CR CL > 80; WT 100 KG; VANCO 1 GM GIVEN IN ER; GIVE VANCO 1250 MG THIS PM TO MAKE 2250 MG BOLUS THEN 1750 MG IV Q12H; TROUGH AFTER 3RD DOSE
[2019-07-17] MEDS ORDERED: CATHETER FLUSH 10 ML SYR IV PRN (18:15)
[2019-07-17] MEDS ORDERED: VANCOMYCIN 1250 MG/NS 250 ML IVPB IV NR ×2 (18:30)
[2019-07-17] MEDS: NS IV 1000 ML 1,000 ML IV SCH (18:36)
[2019-07-17] MEDS ORDERED: RT-ALBUTEROL/IPRATROPIUM 3 ML (DUONEB) VIAL INH PRN (19:45)
[2019-07-17 20:11] VITALS: BP 145/80
[2019-07-17] MEDS: RT-ALBUTEROL/IPRATROPIUM 3 ML (DUONEB) VIAL INH SCH (21:51)
[2019-07-17 23:50] VITALS: BP 119/69
[2019-07-18] MEDS: RT-ALBUTEROL/IPRATROPIUM 3 ML (DUONEB) VIAL INH SCH ×4 (02:03→20:56)
[2019-07-18 04:00] VITALS: BP 122/69
[2019-07-18] MEDS: NS IV 1000 ML 1,000 ML IV SCH (04:58)
[2019-07-18] MEDS: CEFEPIME 2,000 MG/SWFI 20 ML IV PUSH IV SCH ×4 (04:59→17:34)
[2019-07-18] MEDS: VANCOMYCIN 1,750 MG/NS 500 ML IVPB IV SCH ×4 (05:48→17:34)
[2019-07-18 08:00] VITALS: BP 128/74
[2019-07-18 08:37] LABS: HEMOGLOBIN 15.2 G/DL (13.3-17.7); MEAN PLATELET VOLUME 9.7 FL (7.4-10.4); RED CELL DISTRIBUTION WIDTH 13.4 % (10.0-14.5); WHITE BLOOD COUNT 5.6 10^3/uL (4.3-11.0)
[2019-07-18] MEDS ORDERED: MELA5CAP PO (08:37)
--- NOTE | 2019-07-18 08:38 | NUR ---
SPOKE WITH THE PATIENT ABOUT HIS MEDICATIONS. HE STATES HE DOES NOT TAKE ANY PRESCRIPTIONS. HE DOES NOT LIKE TO TAKE PILLS. HE IS SUPPOSED TO TAKE A SEIZURE MEDICATION BUT STATES HE HAS NOT TAKEN IT IN MONTHS AND DOES NOT KNOW THE NAME OF IT. HE ALSO STATES HE HAS AN INHALER AT HOME FROM A LONG TIME AGO BUT DOES NOT USE IT. HE DOES TAKE MELATONIN OTC NEEDED FOR SLEEP.
[2019-07-18 09:04] LABS: BUN/CREATININE RATIO 11; CALCIUM 8.6 MG/DL (8.5-10.1); CARBON DIOXIDE 21 MMOL/L (21-32); CHLORIDE 108 MMOL/L (98-107); CREATININE SERUM 1.09 MG/DL (0.60-1.30); GFR ESTIMATED > 60; GLUCOSE 108 MG/DL (70-105); POTASSIUM 4.1 MMOL/L (3.6-5.0); SODIUM 138 MMOL/L (135-145)
--- NOTE | 2019-07-18 09:37 | History & Physical-Hospitalist ---
History of Present Illness HPI/Chief Complaint Pt is a 49yoCM with a PMH of tobacco abuse who presented to the ER due to right hand and arm swelling and edema. He believes he was bit by something on his right index finger and woke up yesterday morning with redness and swelling spreading up his arm. He states he showed his mom who brought him to the emergency room for evaluation because of how rapidly it was spreading. He denies any fevers or chills but noticed eventually his redness spread up his arm to his chest and it was tingling. He states that while he was in the ER the redness continued to spread and even overnight was spreading further down his chest. It is now much improved and he is actually requesting discharge home today. He states he still had pain in his hand that he describes as like "someone squeezing my hand too hard." Source: patient Exam Limitations: no limitations Date Seen 07/18/19 Time Seen by a Provider: 09:32 Attending Physician Leeroy Johnson MD PCP No,Local Physician Referring Physician Date of Admission Jul 17, 2019 at 16:08 Home Medications & Allergies Home Medications Reviewed patient Home Medication Reconciliation performed by pharmacy medication reconciliations semiconductor equipment technician and/or nursing. Patients Allergies have been reviewed. 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) Smoking Status: Current Everyday Smoker Type Used: Cigarettes Recent Foreign Travel: No Contact w/other who traveled: No Recent Hopitalizations: No Recent Infectious Disease Expo: No Immunizations Up To Date Pediatric: Yes Seasonal Allergies Seasonal Allergies: No Past Medical History Surgeries: Coronary Stent, Orthopedic Cardiac: Heart Attack Neurological: Seizure Disorder Reproductive: No Sexually Transmitted Disease: No HIV/AIDS: No Genitourinary: Kidney Stones Loss of Vision: Bilateral Cancer: Pancreatic History of Blood Disorders: No Adverse Reaction to Blood Goss: No (N/A) Family History Reviewed Nursing Family Hx No Pertinent Family Hx Review of Systems Constitutional: No chills, No fever EENTM: no symptoms reported Respiratory: no symptoms reported Cardiovascular: no symptoms reported Gastrointestinal: no symptoms reported Genitourinary: no symptoms reported Musculoskeletal: no symptoms reported Skin: see HPI, rash Psychiatric/Neurological: No Symptoms Reported Physical Exam Physical Exam Vital Signs Vital Signs - First Documented 07/17/19 13:15 Temp 36.3 Pulse 82 Resp 13 B/P (MAP) 138/76 (96) Pulse Ox 98 Capillary Refill : Less Than 3 Seconds Height, Weight, BMI Height: 6'4.00" Weight: 225lbs. 0.0oz. 102.291855ql; 26.27 BMI Method:Stated General Appearance: No Apparent Distress, WD/WN HEENT: Moist Mucous Membranes; No Scleral Icterus (L), No Scleral Icterus (R) Neck: Supple; No Thyromegaly Respiratory: Lungs Clear, No Accessory Muscle Use, No Respiratory Distress Cardiovascular: Regular Rate, Rhythm, No Murmur Gastrointestinal: Normal Bowel Sounds, Non Tender, Soft Extremity: No Calf Tenderness Neurologic/Psychiatric: Alert, Oriented x3, Normal Mood/Affect Skin: Tattoos/Piercings, Other (right index finger and forearm erythem and edema well within demarcation) Results Results/Procedures Labs Laboratory Tests 07/17/19 13:45 07/18/19 08:28 Patient resulted labs reviewed. Imaging: Reviewed Imaging Report Assessment/Plan Admission Diagnosis Cellulitis Admission Status: Observation Assessment and Plan Cellulitis Improved today Continue on Vanc/Cefepime Erythema and edema much improved Ortho consulted given involvement of hand, appreciate recs Insomnia Melatonin added Tobacco Abuse Recommended cessation Nicotine Patch added Clinical Quality Measures DVT/VTE Risk/Contraindication: Risk Factor Score Per Nursin RFS Level Per Nursing on Admit: 4+=Very High LEEROY JOHNSON MD Jul 18, 2019 09:37 POS
[2019-07-18] MEDS ORDERED: NICOTINE 14 MG (NICODERM) PATCH TD NR (09:45)
[2019-07-18] MEDS: LACTOBACILLUS ACIDOPHILUS (PROBIOTIC) CAPSULE PO SCH ×2 (11:44→17:34)
--- NOTE | 2019-07-18 13:33 | NUR ---
Pt is Aurelio and requested rosary. Rahman will provide.
[2019-07-18 15:45] VITALS: BP 141/76
[2019-07-18] MEDS ORDERED: ONDANSETRON 4 MG/2 ML (SDV) Z0FRAN IVP PRN (18:15)
[2019-07-18 19:44] VITALS: BP 142/77
[2019-07-18] MEDS: IBUPROFEN 600 MG (MOTRIN) TAB PO PRN (21:52)
[2019-07-19] VITALS (7 sets, daily range): BP systolic 113–143; BP diastolic 69–79
[2019-07-19] MEDS: RT-ALBUTEROL/IPRATROPIUM 3 ML (DUONEB) VIAL INH SCH ×4 (02:47→21:55)
[2019-07-19] MEDS: CEFEPIME 2,000 MG/SWFI 20 ML IV PUSH IV SCH ×4 (04:43→17:32)
[2019-07-19] MEDS ORDERED: TROUGH ORDER-PHARMACY XX NR (05:30)
[2019-07-19] MEDS: VANCOMYCIN 1,750 MG/NS 500 ML IVPB IV SCH ×2 (06:05)
[2019-07-19] MEDS: LACTOBACILLUS ACIDOPHILUS (PROBIOTIC) CAPSULE PO SCH ×3 (06:05→17:31)
--- NOTE | 2019-07-19 07:29 | NUR ---
VANCOMYCIN DOSING TROUGH LEVEL 18.3 - CONTINUE CURRENT DOSE OF VANC 1750 MG Q12H
[2019-07-19] MEDS: NICOTINE 14 MG (NICODERM) PATCH TD SCH (08:12)
[2019-07-19] MEDS: NICOTINE PATCH REMOVAL TP SCH (08:13)
--- NOTE | 2019-07-19 08:56 | Discharge Inst-Simple/Standard ---
Discharge Inst-Standard Reconcile Patient Problems Problems Reviewed?: Yes Discharge Medications New, Converted or Re-Newed RX: Transmitted to Pharmacy Patient Instructions/Follow Up Plan of Care/Instructions/FU: Please continue to take your medications as written. Please finsih your antibiotics even if you begin to feel better. Activity as Tolerated: Yes Discharge Diet: No Restrictions Return to The Hospital For: Fever, worsening swelling or erythema, if you feel you are getting worse. Planned Outpatient Orders/Ref. Pneu Vac Indicated: Yes LEEROY SCOTT MD Jul 19, 2019 08:56 POS
--- NOTE | 2019-07-19 11:55 | CONSULTATION REPORT ---
DATE OF SERVICE: 07/18/2019 ORTHOPEDIC CONSULTATION IMPRESSION: Resolving cellulitis, right upper extremity. RECOMMENDATIONS: Continue IV antibiotic therapy. HISTORY AND PHYSICAL EXAMINATION: The patient is a 49-year-old male, who was seen with a chief complaint of pain, erythema and swelling involving the right upper extremity. The patient had no specific history of trauma to the right hand. No lacerations or abrasions were noted. The patient initially began having pain at the right index finger with erythema began spreading on the dorsal and volar aspect of the forearm up into his shoulder and into his right anterior chest wall actually had some erythema spreading up into his neck as well. He was evaluated in [place] [facility], transferred to [facility] in [place] for antibiotic therapy. The patient has been receiving IV antibiotics. He has noticed significant improvement in his pain. Overall, he has noticed significant decrease in his erythema about the right upper extremity. On exam, the patient's right upper extremity demonstrates multiple areas have been marked and the area of his previous erythema. There is a significant decrease in erythema as these areas demonstrate only minor redness. The patient has no tenderness to palpation over the volar surface of his right index finger. He has full flexion of his index finger as well. He does note a tight sensation with flexion with no pain. The patient demonstrates a slight degree of erythema extending over the dorsal ulnar aspect of his forearm and over the volar ulnar aspect as well. There is no erythema over his chest wall today. There is no erythema of the right shoulder. He has a full range of motion of his elbow. There is no palpable swelling in the right forearm. Neurovascularly, right hand is intact. He has no evidence of abscess formation. There was no evidence of lacerations or abrasions. There is no drainage noted from the right upper extremity. The patient has improved with his antibiotic therapy. I would continue the antibiotic therapy until the majority of the redness, secondary cellulitis had resolved. He demonstrates no evidence of erythema in his axilla on exam with a very minimal lymph node swelling in his axilla. I will follow the patient on as needed basis. Job ID: [id number] DocumentID: [id number] Dictated Date: 07/19/2019 09:55:24 Manager Credit Date: 07/19/2019 11:55:06 Dictated By: DO TIMUR ARCEO
--- NOTE | 2019-07-19 12:51 | Progress Note - Hospitalist ---
Subjective HPI/CC On Admission Date Seen by Provider: Jul 19, 2019 Time Seen by Provider: 09:30 Pt is a 49yoCM with a PMH of tobacco abuse who presented to the ER due to right hand and arm swelling and edema. He believes he was bit by something on his right index finger and woke up yesterday morning with redness and swelling spreading up his arm. He states he showed his mom who brought him to the emergency room for evaluation because of how rapidly it was spreading. He denies any fevers or chills but noticed eventually his redness spread up his arm to his chest and it was tingling. He states that while he was in the ER the redness continued to spread and even overnight was spreading further down his chest. It is now much improved and he is actually requesting discharge home today. He states he still had pain in his hand that he describes as like "someone squeezing my hand too hard." Subjective/Events-last exam Pt reports doing well. Still has some erythem and edema. Is quite anxious about going home and requests one more day of IV abx. Focused Exam Lactate Level 07/17/19 14:45: Lactic Acid Level 1.65 Objective Exam Vital Signs Vital Signs Date Time Temp Pulse Resp B/P (MAP) Pulse Ox O2 Delivery O2 Flow Rate FiO2 07/19/19 08:00 Room Air 07/19/19 08:00 36.6 69 16 123/69 (87) 95 Capillary Refill : Less Than 3 SecondsLess Than 3 Seconds General Appearance: No Apparent Distress, WD/WN Respiratory: Lungs Clear, No Respiratory Distress Cardiovascular: Regular Rate, Rhythm, No Murmur Neurologic/Psychiatric: Alert, Oriented x3 Skin: Tattoos/Piercings Results/Procedures Lab Patient resulted labs reviewed. Imaging: Reviewed Imaging Report Assessment/Plan Assessment and Plan Assess & Plan/Chief Complaint Cellulitis Improved further today Continue on Cefepime- Will DC Vanc Erythema and edema much improved Ortho consulted given involvement of hand, appreciate recs Insomnia Melatonin Tobacco Abuse Recommended cessation Nicotine Patch added Clinical Quality Measures DVT/VTE Risk/Contraindication: Risk Factor Score Per Nursin RFS Level Per Nursing on Admit: 4+=Very High LEEROY SCOTT MD Jul 19, 2019 12:51 POS
[2019-07-19] MEDS: IBUPROFEN 600 MG (MOTRIN) TAB PO PRN (15:06)
[2019-07-20] MEDS: RT-ALBUTEROL/IPRATROPIUM 3 ML (DUONEB) VIAL INH SCH ×2 (03:07→09:13)
[2019-07-20] MEDS: CEFEPIME 2,000 MG/SWFI 20 ML IV PUSH IV SCH ×2 (05:32)
[2019-07-20] MEDS: LACTOBACILLUS ACIDOPHILUS (PROBIOTIC) CAPSULE PO SCH (05:33)
[2019-07-20 08:00] VITALS: BP 144/84
[2019-07-20] MEDS: NICOTINE 14 MG (NICODERM) PATCH TD SCH (08:59)
[2019-07-20] MEDS: NICOTINE PATCH REMOVAL TP SCH (09:00)
[2019-07-20] MEDS ORDERED: CEPH-507 PO (09:12)
--- NOTE | 2019-07-20 09:13 | Discharge Summary ---
Diagnosis/Chief Complaint Date of Admission Jul 17, 2019 at 16:08 Date of Discharge Discharge Date: Jul 19, 2019 Admission Diagnosis Cellulitis Primary Care No,Local Physician Discharge Summary Procedures/Consulations Ortho Surgery- Dr Montoya Discharge Physical Exam Allergies: Coded Allergies: ofloxacin (Verified Allergy, Mild, 07/17/19) Penicillins (Verified Adverse Reaction, Unknown, Pt has received Ceftriaxone in the past, 07/17/19) aspirin (Verified Adverse Reaction, Unknown, 07/17/19) latex (Verified Adverse Reaction, Unknown, 07/17/19) Uncoded Allergies: TAPE (Allergy, Mild, 07/17/09) Vitals & I&Os Vital Signs Date Time Temp Pulse Resp B/P (MAP) Pulse Ox O2 Delivery O2 Flow Rate FiO2 07/20/19 09:51 35.2 71 20 144/84 94 Room Air General Appearance: No Apparent Distress, WD/WN Extremity: Other (mild edema of right index finger without erythema) Skin: Tattoos/Piercings Neurologic/Psychiatric: Alert, Oriented x3 Hospital Course patient was admitted due to cellulitis that started in his right index finger and spread caudally to his axilla and even across his chest at worst. He was started on vancomycin and cefepime and responded well. Ortho Surgery was consulted given the involvement of his hand but no surgical interventions were needed. Given consistence with a strep species vancomycin was discontinued and he tolerated this well. He was discharged home on Keflex to follow-up with a primary care doctor. Labs (last 24 hrs) Microbiology 07/17/19 Blood Culture - Preliminary, Resulted No growth Patient resulted labs reviewed. Imaging: Reviewed Imaging Report Discussion & Recommendations Discharge Planning: <30 minutes discharge planning Discharge Home Medications: Active Scripts Active Ventolin Hfa (Albuterol Sulfate) 1 Puff Puff 2 Puff INH Q4H 1 PUFF = 90 MCG Keflex (Cephalexin) 500 Mg Capsule 500 Mg PO BID Reported Melatonin 5 Mg Capsule 5-10 Mg PO HS PRN Instructions to patient/family Please see electronic discharge instructions given to patient. Clinical Quality Measures DVT/VTE Risk/Contraindication: Risk Factor Score Per Nursin RFS Level Per Nursing on Admit: 4+=Very High LEEROY SCOTT MD Jul 20, 2019 09:13 POS
[2019-07-20] MEDS ORDERED: RT-ALBUINH INH (09:32)
[2019-07-20 09:51] VITALS: BP 144/84
== END 2019-07-20 09:10 | disposition home or self-care (01) ==
LOC: EDUNIT# 12:58 → ER FS 13:00 → UNDOADMOB 16:08 → 4TH 16:08 → UNDODISOB 07-20 09:51
PROVIDERS: ADMIT Family Medicine; ATTEND Family Medicine
DX: L03.113 Cellulitis of right upper limb (principal); R20.8 Other disturbances of skin sensation; J44.9 Chronic obstructive pulmonary disease, unspecified; G47.00 Insomnia, unspecified; G40.909 Epilepsy, unspecified, not intractable, without status epilepticus; Z91.048 Other nonmedicinal substance allergy status; Z88.0 Allergy status to penicillin; Z88.6 Allergy status to analgesic agent; Z88.1 Allergy status to other antibiotic agents; Z91.040 Latex allergy status; Z79.891 Long term (current) use of opiate analgesic; Z95.1 Presence of aortocoronary bypass graft
CPT/HCPCS: 36415; 71046; 80048; 80053; 80202; 83605; 85025; 85027; 87040; 93005; 93041; 94640; 94760; 96374; 96375; G0378

== ENCOUNTER 2020-02-14 16:19 | Emergency (ER) | payer MEDICAID ==
[~2020-02-14] VITALS: Ht 197 cm; Wt 111.1 kg
[~2020-02-14 16:19] MED LIST changes: +ACHD5005 PO; -HYDR-3812 PO; +MELA5CAP PO
[2020-02-14] MEDS ORDERED: KETOROLAC 30 MG/ML VIAL IVP ONE (17:00)
--- NOTE | 2020-02-14 17:29 | ED EENT ---
History of Present Illness General Chief Complaint: Ear Problems Stated Complaint: EAR PROBLEMS/PAIN Nursing Triage Note: Pt reports having pain in left ear and seen Wednesday at [facility] and placed on Cefdinir. Pt reports swollen and painful. (TED AGUILAR MD) History of Present Illness Date Seen by Provider: Feb 14, 2020 Time Seen by Provider: 16:25 Initial Comments The patient is a 50-year-old male with a history of what he describes as coronary disease status post CA in the past, no stents in place, pancreatic cancer diagnosed a few years ago and not receiving any treatment, prior d iagnosis of epilepsy no longer on any antiepileptic medications. History is all per patient report as we do not have any prior records to substantiate this history. The patient presents with concern for 5-6 days of left ear discomfort with 2 days of associated very mild left-sided zygomatic facial swelling, 2 days of very mild left postauricular/mastoid tenderness and swelling, 2 days of left periorbital discomfort and 2 days of monocular diplopia affecting only the left eye when abducted. Patient visited a local urgent care 4 days ago for his ear discomfort. Left ear was irrigated to remove cerumen, patient was evidently diagnosed with a left otitis media and placed on a course of cefdinir with which he states he has been compliant. Today, with worsening of his left ear discomfort and worsening of left facial swelling and discomfort as well as double vision, patient elected emergency department reevaluation. He denies fevers, nausea or vomiting, headache, focal weakness, numbness, tingling, neck stiffness/pain/meningismus, pain with extraocular movements bilaterally, intraoral / posterior pharyngeal discomfort, swelling or tender ness, change in voice, trouble with secretions, throat pain, shortness of breath. Patient is alert and oriented 4 and pleasantly and appropriately interactive and in absolutely no acute distress upon initial assessment here in the emergency department. He ambulate in with a narrow, steady gait. Vital signs are appropriate here. (TED AGUILAR MD) Allergies and Home Medications Allergies Coded Allergies: ofloxacin (Verified Allergy, Mild, 07/17/19) Penicillins (Verified Adverse Reaction, Unknown, Pt has received Ceftriaxone in the past, 07/17/19) aspirin (Verified Adverse Reaction, Unknown, 07/17/19) latex (Verified Adverse Reaction, Unknown, 07/17/19) Uncoded Allergies: TAPE (Allergy, Mild, 07/17/09) Home Medications Albuterol Sulfate 1 Puff Puff, 2 PUFF INH Q4H 1 PUFF = 90 MCG Prescribed by: LEEROY SCOTT on 07/20/19 0932 Cefdinir 300 Mg Capsule, 300 MG PO BID Prescribed by: RIGOBERTO CASTRO on 02/14/201940 Cephalexin 500 Mg Capsule, 500 MG PO BID Prescribed by: LEEROY SCOTT on 07/20/19 0912 Melatonin 5 Mg Capsule, 5-10 MG PO HS PRN for SLEEP, (Reported) Patient Home Medication List Home Medication List Reviewed: Yes (TED AGUILAR MD) Review of Systems Review of Systems Constitutional: see HPI (TED AGUILAR MD) All Other Systems Reviewed Negative Unless Noted: Yes (TED AGUILAR MD) Past Lsoroju-Qpwmjt-Dykszv Hx Past Med/Social Hx: Reviewed Nursing Past Med/Soc Hx (TED AGUILAR MD) Patient Social History Alcohol Use: Past History Number of Drinks Today: AA Alcohol Beverage of Choice: Beer Recreational Drug Use: No Smoking Status: Current Everyday Smoker Type Used: Cigarettes 2nd Hand Smoke Exposure: No Recent Foreign Travel: No Contact w/Someone Who Travel: No Recent Infectious Disease Expo: No Recent Hopitalizations: No Physical Abuse: No Sexual Abuse: No Mistreated: No Fear: No (TED AGUILAR MD) Immunizations Up To Date PED Vaccines UTD: Yes (TED AGUILAR MD) Seasonal Allergies Seasonal Allergies: No (TED AGUILAR MD) Past Medical History Surgeries: Yes (hernia repair, left testicle injury, brain surgery) Coronary Stent, Orthopedic Respiratory: Yes COPD Cardiac: Yes (STENT) Heart Attack Neurological: Yes Seizure Disorder Reproductive Disorders: No Sexually Transmitted Disease: No HIV/AIDS: No Genitourinary: Yes Kidney Stones Gastrointestinal: No Musculoskeletal: No Endocrine: No HEENT: Yes Loss of Vision: Bilateral Cancer: Yes Pancreatic Psychosocial: No Integumentary: No Blood Disorders: No Adverse Reaction/Blood Tranf: No (N/A) (TED AGUILAR MD) Family Medical History Reviewed Nursing Family Hx (TED AGUILAR MD) No Pertinent Family Hx (TED AGUILAR MD) Physical Exam Vital Signs Vital Signs - First Documented 6/17/20 16:25 Temp 37.0 Pulse 87 Resp 20 B/P (MAP) 139/90 (106) Pulse Ox 97 O2 Delivery Room Air (RIGOBERTO BOYER MD) Height, Weight, BMI Height: 6'4.00" Weight: 225lbs. 0.0oz. 102.976643ej; 28.00 BMI Method:Stated General Appearance: no apparent distress This is an older male appearing nontoxic and in no acute distress. Head is normocephalic and atraumatic. Neck is supple and nontender and patient is able to range neck fully in all dimensions without discomfort or distress. Oropharynx is moist. There is no posterior oropharyngeal erythema, tonsillar exudate or swelling or uvular deviation and patient is speaking comfortably in full sentences, tolerating secretions well and speaking in a normal tone of voice. No acute intraoral abnormality is seen. There is very subtle left zygomatic facial swelling with some minimal preauricular tenderness and some modest postauricular/mastoid tenderness to palpation also noted. No erythema or warmth appreciated to the face. Right tympanic membrane is clear. Left tympanic membrane is poorly visualized secondary to significant left external auditory canal swelling and tenderness. Examination of the face reveals no significant left periorbital erythema or swelling and no pain is elicited with extraocular movements which appear normal bilaterally. Visual stewart are intact to finger counting bilaterally. Pupils are round and equally reactive to light, 3-4 mm bilaterally. Eyes are without conjunctival injection, hypopyon or other acute abnormality on inspection. Lungs are clear to auscultation at all stations. There is a normal S1 and S2 without rubs or gallops and capillary refill is appropriate, less than 2 seconds globally. Abdomen is soft, nontender and nondistended. Skin is warm and dry without cyanosis, clubbing or edema. Psychiatrically, the patient demonstrates appropriate mood and affect and is alert. Neurologically, patient has monocular diplopia with leftward gaze / abduction of his left eye. Everything in his left visual field appears to double up when he gazes leftward; covering the right eye does not resolve the diplopia. No gaze palsies are appreciated. Visual stewart are intact to confrontation and finger counting bilaterally. Otherwise, cranial nerves II through XII are intact and no lateralizing deficits are noted. Speech is normal. Language is normal. Coordination is normal. There is no dysmetria with gvucbr-tg-[id number] or lsbl-qu-nues bilaterally. Strength is 5 out of 5 in all joints of bilateral upper and lower extremity. Sensation is intact to light touch in bilateral upper and lower extremity. The patient ambulance with a narrow, steady gait in the emergency department and is alert and oriented 4. (TED AGUILAR MD) Progress/Results/Core Measures Results/Orders Lab Results Laboratory Tests Test 02/14/20 17:50 02/14/20 18:08 Range/Units Sodium Level 140 135-145 MMOL/L Potassium Level 4.1 3.6-5.0 MMOL/L Chloride Level 101 98-107 MMOL/L Carbon Dioxide Level 22 21-32 MMOL/L Anion Gap 17 H 5-14 MMOL/L Blood Urea Nitrogen 10 7-18 MG/DL Creatinine 1.04 0.60-1.30 MG/DL Estimat Glomerular Filtration Rate > 60 BUN/Creatinine Ratio 10 Glucose Level 125 H 70-105 MG/DL Calcium Level 9.2 8.5-10.1 MG/DL Corrected Calcium 8.9 8.5-10.1 MG/DL Total Bilirubin 0.5 0.1-1.0 MG/DL Aspartate Amino Transf (AST/SGOT) 19 5-34 U/L Alanine Aminotransferase (ALT/SGPT) 23 0-55 U/L Alkaline Phosphatase 80 40-136 U/L C-Reactive Protein 0.69 H <0.50 MG/DL Total Protein 6.6 6.4-8.2 GM/DL Albumin 4.4 3.2-4.5 GM/DL White Blood Count 7.2 4.3-11.0 10^3/uL Red Blood Count 5.66 4.35-5.85 10^6/uL Hemoglobin 17.8 H 13.3-17.7 G/DL Hematocrit 49 40-54 % Mean Corpuscular Volume 87 80-99 FL Mean Corpuscular Hemoglobin 31 25-34 PG Mean Corpuscular Hemoglobin Concent 36 32-36 G/DL Red Cell Distribution Width 12.7 10.0-14.5 % Platelet Count 201 130-400 10^3/uL Mean Platelet Volume 9.4 7.4-10.4 FL Neutrophils (%) (Auto) 56 42-75 % Lymphocytes (%) (Auto) 35 12-44 % Monocytes (%) (Auto) 6 0-12 % Eosinophils (%) (Auto) 1 0-10 % Basophils (%) (Auto) 1 0-10 % Neutrophils # (Auto) 4.0 1.8-7.8 X 10^3 Lymphocytes # (Auto) 2.5 1.0-4.0 X 10^3 Monocytes # (Auto) 0.5 0.0-1.0 X 10^3 Eosinophils # (Auto) 0.1 0.0-0.3 10^3/uL Basophils # (Auto) 0.0 0.0-0.1 10^3/uL Erythrocyte Sedimentation Rate 5 0-30 MM/HR (RIGOBERTO BOYER MD) My Orders Orders - RIGOBERTO BOYER MD Iohexol Injection (Omnipaque 350 Mg/Ml 1 (02/14/20 18:45) Received Contrast (Hold Metformin- Contr (02/14/20 18:45) Sodium Chloride Flush (Catheter Flush Sy (02/14/20 18:45) Ns (Ivpb) (Sodium Chloride 0.9% Ivpb Bag (02/14/20 18:45) (RIGOBERTO BOYER MD) Medications Given in ED Current Medications Medications Dose Ordered Sig/Alis Route Start Time Stop Time Status Last Admin Dose Admin Cefepime HCl 2000 mg/Sterile Water 20 ml @ 240 mls/hr ONCE ONCE IV 02/14/20 18:00 02/14/20 18:04 DC 02/14/20 18:21 240 MLS/HR Iohexol 75 ml ONCE ONCE IV 02/14/20 18:45 02/14/20 18:46 DC 02/14/20 18:52 75 ML Ketorolac Tromethamine 30 mg ONCE ONCE IVP 02/14/20 17:00 02/14/20 17:01 DC 02/14/20 17:30 30 MG Sodium Chloride 10 ml NEEDED PRN IV 02/14/20 18:45 02/14/20 19:47 DC 02/14/20 18:52 10 ML Sodium Chloride 100 ml ONCE ONCE IV 02/14/20 18:45 02/14/20 18:46 DC 02/14/20 18:52 100 ML (RIGOBERTO BOYER MD) Vital Signs/I&O 02/14/20 02/14/20 16:25 19:47 Temp 37.0 36.8 Pulse 87 66 Resp 20 16 B/P (MAP) 139/90 (106) 120/75 Pulse Ox 97 96 O2 Delivery Room Air Room Air (RIGOBERTO BOYER MD) Blood Pressure Mean: 106 Progress Progress Note : Time: 17:40 Progress Note 50-year-old male who presents for what on clinical examination appears to be a significant left otitis externa with some minimal tenderness over the mastoid bone and some preauricular tenderness and swelling as well which extends over the left zygomatic face to some extent. More difficult to explain is the patient's left monocular diplopia which is elicitable with abduction of his left eye. This finding developed several days after onset of ear pain and raises concern for orbital and/or retro-orbital extension of inflammation. We will place IV and check basic labs and inflammatory markers and will give some medication for discomfort as noted. We'll check advanced imaging of head and maxillofacial regions. We will then reevaluate. Patient has been treated with cefdinir for several days; this has been ineffective. My inclination would be to treat with a fluoroquinolone for significant left otitis externa however patient has what sounds like a re latively severe allergy to ofloxacin. Will give a dose of cefepime which should provide the necessary broad-spectrum + antipseudomonal coverage, pending results of workup as above. Transition of care at [address] Castro pending results of labs and imaging and re-evaluation for disposition. (TED AGUILAR MD) Progress Note : Time: 19:30 Progress Note Labs were reviewed and CT imaging reviewed by me and reports reviewed. I received a verbal checkout from Dr. Aguilar as well. Patient was examined again and found to have tenderness over the left mastoid. However, none of his labs or vitals signs would suggest severe infection. His diplopia is vertical in nature and monocular with the left eye only. This would suggest an ophthalmologic or optometry problem. This was discussed with Dr. Singh who agrees with me that outpatient follow-up within the next 48 hours is most appropriate. There is no field of vision loss and no evidence of abscess causing any entrapment or mass effect on the CT scan. Additionally, there was report of a small amount of fluid in the left mastoid on the CT scan. However, again there is no evidence of severe infection on labs or with vital signs. I discussed the situation with Dr. Cai whom patient has seen in the past. He agrees that patient does not require hospitalization admission or further IV antibiotics at this time. We discussed antibiotic selection and we believe continuing Omnicef is the best course of action at this time given the patient's allergy profile. Patient is to call the [facility] tomorrow for follow-up. Patient stated he had just completed his antibiotics. We will prescribe a second round. (RIGOBERTO BOYER MD) Diagnostic Imaging Diagonstic Imaging: CT Plain Films/CT/US/NM/MRI: head Comments CT head viewed by me and report reviewed. See report below: NAME: ALEA COYNE JR [facility] REC#: [id number] PT STATUS: REG ER : 1970 PHYSICIAN: TED AGUILAR MD ADMIT DATE: 02/14/20/ER FS Draft Date of Exam:02/14/20 CT HEAD WO PROCEDURE: CT head without contrast. TECHNIQUE: Multiple contiguous axial images were obtained through the brain without the use of intravenous contrast. Auto Exposure Controls were utilized during the CT exam to meet ALARA standards for radiation dose reduction. INDICATION: Left ear pain and swelling since Wednesday. Double vision. History of pancreatic cancer. COMPARISON: None FINDINGS: The ventricles and cortical sulci are age-appropriate. There is no midline shift or mass effect. No acute intracranial hemorrhage is seen. There is no CT evidence of acute territorial ischemia. The calvarium appears intact. There is fluid in the left mastoid air cells. No fluid collection is seen on this noncontrast exam. IMPRESSION: 1. No acute intracranial hemorrhage or CT evidence of acute territorial ischemia. 2. Fluid in the left mastoid air cells, which is nonspecific, but can be seen with mastoiditis. No soft tissue fluid collections are seen on this noncontrast exam. Dictated on workstation # [id number] Dict: 02/14/20 1859 Trans: 02/14/20 1904 [facility] [phone] Interpreted by: DUGLAS OLEA MD Diagonstic Imaging: CT Plain Films/CT/US/NM/MRI: facial bones Comments CT maxillofacial structures viewed by me and report reviewed. See report below: NAME: ALEA COYNE JR [facility] REC#: [id number] PT STATUS: REG ER : 1970 PHYSICIAN: TED AGUILAR MD ADMIT DATE: 02/14/20/ER FS Draft Date of Exam:02/14/20 CT MAXILLOFACIAL W PROCEDURE: CT maxillofacial with contrast. TECHNIQUE: After intravenous administration of contrast, axial images were obtained through the face and reformatted into coronal and sagittal planes. Auto Exposure Controls were utilized during the CT exam to meet ALARA standards for radiation dose reduction. INDICATION: Left ear pain and swelling. Double vision. History of pancreatic cancer. COMPARISON: CT head dated 02/14/2020 FINDINGS: There is partial opacification of mastoid air cells on the left. Multiple air-fluid levels are noted scattered throughout the left mastoid air cells. There is no osseous erosion. Evaluation of the intracranial structures demonstrates no abnormal fluid collection to suggest epidural abscess. There is no pneumocephalus. Overlying superficial soft tissue structures are also unremarkable. No focal mass is seen. Note is made of hyperdensity within the patient's oral cavity lateral to the right base of the maxilla. There is some air around this structure. Structure in question measures 1 x 1.9 cm and this may be on the basis of gum or other food stuff within the patient's mouth. Multiple advanced maxillary and mandibular dental caries are identified. There are multiple erosions. There is also prominent periapical lucencies. Prominent periapical lucency of the anterior left maxilla erodes through the anterior and posterior osseous surfaces. There is, however, no surrounding fluid collection to suggest soft tissue abscess. Paranasal sinuses show mild scattered mucosal thickening. No abnormal air-fluid levels are seen. There is no acute fracture. There is mild left lateral hooking of the posterior nasal septum. Nasal septum and nasal bones are otherwise intact. There is no orbital fracture. Globes are symmetric. No periorbital foreign bodies are seen. Zygomatic arches are intact as well, as are the bilateral medial and lateral pterygoid plates. There is no fracture or dislocation of the mandible. Two indwelling tongue rings are present. IMPRESSION: 1. Multiple scattered left-sided mastoid air cell effusions. In the correct clinical setting, findings can be seen as a sequela of underlying mastoiditis. There is no osseous erosion or evidence of associated epidural extension. 2. Hyperdense foreign substance lateral to the right maxillary ridge. Please correlate with piece of gum or other food debris within the patient's mouth. 3. Multiple advanced dental caries. Dictated on workstation # [id number] Dict: 02/14/201899 Trans: 02/14/201912 [facility] [phone] Interpreted by: SHARONDA QUINTANA MD (RIGOBERTO BOYER MD) Departure Impression Primary Impression: Monocular diplopia of left eye Additional Impressions: Left otitis externa Qualified Codes: H60.392 - Other infective otitis externa, left ear Acute mastoiditis of left side Disposition: 01 HOME, SELF-CARE Condition: Stable Departure-Patient Inst. Decision time for Depature: 19:05 (RIGOBERTO BOYER MD) Referrals: QUETA CAI MD, CHRISTOPHER J OD NO,LOCAL PHYSICIAN (PCP) Primary Care Physician Patient Instructions: Mastoiditis (DC) Add. Discharge Instructions: Complete the second round of antibiotics as prescribed. Follow-up with Dr. Cai and an human services professional within the next 48 hours. Please call tomorrow morning for appointment times. If you're not able to follow-up with your usual human services professional, you may follow-up with Dr. Singh at the [facility] in [place]. If you have worsening symptoms or develop new symptoms such as fever, vomiting, etc. please return to the emergency room. All discharge instructions reviewed with patient and/or family. Voiced understanding. Scripts Cefdinir (Cefdinir) 300 Mg Capsule 300 MG PO BID, #14 CAP Prov: RIGOBERTO BOYER MD 02/14/20 Copy Copies To 1: HALLIE SINGH OD Copies To 2: QUETA CAI MD, CRAIG W MD Feb 14, 2020 17:29 RIGOBERTO BOYER MD Feb 14, 2020 19:14
[2020-02-14] MEDS ORDERED: CEFEPIME INJECTION 2,000 MG in WATER (STERILE) FOR INJECTION 20 ML IV ONE (18:00)
[2020-02-14 18:27] LABS: BUN/CREATININE RATIO 10; CALCIUM 9.2 MG/DL (8.5-10.1); CARBON DIOXIDE 22 MMOL/L (21-32); CHLORIDE 101 MMOL/L (98-107); CREATININE SERUM 1.04 MG/DL (0.60-1.30); GFR ESTIMATED > 60; GLUCOSE 125 MG/DL (70-105); POTASSIUM 4.1 MMOL/L (3.6-5.0); SODIUM 140 MMOL/L (135-145)
[2020-02-14 18:27] LABS: BASOPHILS % (AUTO) 1 % (0-10); EOSINOPHILS # (AUTO) 0.1 10^3/uL (0.0-0.3); EOSINOPHILS % (AUTO) 1 % (0-10); HEMATOCRIT 49 % (40-54); HEMOGLOBIN 17.8 G/DL (13.3-17.7); LYMPHOCYTES # (AUTO) 2.5 X 10^3 (1.0-4.0); LYMPHOCYTES % (AUTO) 35 % (12-44); MEAN CORPUSCULAR HEMOGLOBIN 31 PG (25-34); MEAN CORPUSCULAR HGB CONC 36 G/DL (32-36); MEAN CORPUSCULAR VOLUME 87 FL (80-99); MEAN PLATELET VOLUME 9.4 FL (7.4-10.4); MONOCYTES # (AUTO) 0.5 X 10^3 (0.0-1.0); MONOCYTES % (AUTO) 6 % (0-12); NEUTROPHILS % (AUTO) 56 % (42-75); PLATELET COUNT 201 10^3/uL (130-400); RED CELL DISTRIBUTION WIDTH 12.7 % (10.0-14.5); WHITE BLOOD COUNT 7.2 10^3/uL (4.3-11.0)
[2020-02-14 18:28] LABS: ALANINE AMINOTRANSFERASE 23 U/L (0-55); ALBUMIN 4.4 GM/DL (3.2-4.5); ALKALINE PHOSPHATASE 80 U/L (40-136); BILIRUBIN,TOTAL 0.5 MG/DL (0.1-1.0); TOTAL PROTEIN 6.6 GM/DL (6.4-8.2)
[2020-02-14 18:42] LABS: ERYTHROCYTE SEDIMENTATION RATE 5 MM/HR (0-30)
[2020-02-14] MEDS ORDERED: CATHETER FLUSH 10 ML SYR IV PRN (18:45)
[2020-02-14] MEDS ORDERED: IOHEXOL 350 MG/ML 100 ML (OMNIPAQUE 350) VIAL IV ONE (18:45)
[2020-02-14] MEDS ORDERED: HOLD METFORMIN - RECEIVED CONTRAST 20 ML VIAL IV SCH (18:45)
[2020-02-14] MEDS ORDERED: NS 100 ML (IVPB) BAG IV ONE (18:45)
--- NOTE | 2020-02-14 19:04 | Diagnostic Imaging Report ---
PROCEDURE: CT head without contrast. TECHNIQUE: Multiple contiguous axial images were obtained through the brain without the use of intravenous contrast. Auto Exposure Controls were utilized during the CT exam to meet ALARA standards for radiation dose reduction. INDICATION: Left ear pain and swelling since Wednesday. Double vision. History of pancreatic cancer. COMPARISON: None FINDINGS: The ventricles and cortical sulci are age-appropriate. There is no midline shift or mass effect. No acute intracranial hemorrhage is seen. There is no CT evidence of acute territorial ischemia. The calvarium appears intact. There is fluid in the left mastoid air cells. No fluid collection is seen on this noncontrast exam. IMPRESSION: 1. No acute intracranial hemorrhage or CT evidence of acute territorial ischemia. 2. Fluid in the left mastoid air cells, which is nonspecific, but can be seen with mastoiditis. No soft tissue fluid collections are seen on this noncontrast exam. Dictated by: Dictated on workstation # [id number]
--- NOTE | 2020-02-14 19:13 | Diagnostic Imaging Report ---
PROCEDURE: CT maxillofacial with contrast. TECHNIQUE: After intravenous administration of contrast, axial images were obtained through the face and reformatted into coronal and sagittal planes. Auto Exposure Controls were utilized during the CT exam to meet ALARA standards for radiation dose reduction. INDICATION: Left ear pain and swelling. Double vision. History of pancreatic cancer. COMPARISON: CT head dated 02/14/2020 FINDINGS: There is partial opacification of mastoid air cells on the left. Multiple air-fluid levels are noted scattered throughout the left mastoid air cells. There is no osseous erosion. Evaluation of the intracranial structures demonstrates no abnormal fluid collection to suggest epidural abscess. There is no pneumocephalus. Overlying superficial soft tissue structures are also unremarkable. No focal mass is seen. Note is made of hyperdensity within the patient's oral cavity lateral to the right base of the maxilla. There is some air around this structure. Structure in question measures 1 x 1.9 cm and this may be on the basis of gum or other food stuff within the patient's mouth. Multiple advanced maxillary and mandibular dental caries are identified. There are multiple erosions. There is also prominent periapical lucencies. Prominent periapical lucency of the anterior left maxilla erodes through the anterior and posterior osseous surfaces. There is, however, no surrounding fluid collection to suggest soft tissue abscess. Paranasal sinuses show mild scattered mucosal thickening. No abnormal air-fluid levels are seen. There is no acute fracture. There is mild left lateral hooking of the posterior nasal septum. Nasal septum and nasal bones are otherwise intact. There is no orbital fracture. Globes are symmetric. No periorbital foreign bodies are seen. Zygomatic arches are intact as well, as are the bilateral medial and lateral pterygoid plates. There is no fracture or dislocation of the mandible. Two indwelling tongue rings are present. IMPRESSION: 1. Multiple scattered left-sided mastoid air cell effusions. In the correct clinical setting, findings can be seen as a sequela of underlying mastoiditis. There is no osseous erosion or evidence of associated epidural extension. 2. Hyperdense foreign substance lateral to the right maxillary ridge. Please correlate with piece of gum or other food debris within the patient's mouth. 3. Multiple advanced dental caries. Dictated by: Dictated on workstation # [id number]
[2020-02-14] MEDS ORDERED: CEFD300C3 PO (19:41)
[2020-02-14 19:47] VITALS: BP 120/75
--- OUTSIDE RECORDS SUMMARY | 2020-02-14 20:53 | XMS REPORT | Continuity of Care Document ---
Author Organization Unknown Address Unknown Phone Unavailable Allergies Active Description Code Type Severity Reaction Onset Reported/Identified Relationship to Patient Clinical Status Yes codeine [id number] Drug Allergy Mild N/A 07/17/2009 Yes TAPE TAPE Mild N/A 07/17/2009 Yes aspirin Drug Allergy N/A N/A 10/11/2009 Yes latex OA N/A N/A 10/11/2009 Yes ofloxacin Drug Allergy N/A N/A 10/11/2009 Yes Penicillins Drug Allergy N/A N/A 10/11/2009 Yes tape OA N/A N /A 10/11/2009 Yes Penicillins [id number] Drug Aller gy Unknown N/A 01/13/2018 Yes ofloxacin [id number] Drug Allergy Mild N/A 07/17/2019 Yes aspirin [id number] Drug Allergy Unknown N/A 07/17/2019 Yes latex [id number] Drug Allergy Unknown N/A 07/17/2019 Yes Penicillins [id number] Drug Aller gy Unknown Pt has received 07/17/2019 Medications There is no data. Problems Date Dx Coded Attending Type Code Diagnosis Diagnosed By 10/11/2009 JOEL STARKEY MD 345.9 SEIZURE DISORDER 10/11/2009 JOEL STARKEY MD 586 RENAL FAILURE UNSPECIFIED 03/20/2010 JOEL STARKEY MD 345.9 0 EPILEPSY, UNSPECIFIED, WITHOUT MENTION OF INTRACTABLE EPILEPSY 06/08/2012 Ot 466.0 06/08/2012 Ot 491.21 06/08/2012 Ot 780.60 09/14/2013 JOEL STARKEY MD 789.0 0 ABDOMINAL PAIN UNSPECIFIED SITE 11/17/2015 JONI JOLLEY MD Ot N44 .2 BENIGN CYST OF TESTIS 11/17/2015 JONI JOLLEY MD Ot N45 .3 EPIDIDYMO-ORCHITIS 11/19/2015 JONI JOLLEY MD Ot N44 .2 11/19/2015 JONI JOLLEY MD Ot N45 .3 12/27/2017 JOBY GALLEGOS Ot F17.200 NICOTINE DEPENDENCE, [...] Ot N44.2 BENIGN CYST OF TESTIS 01/13/2018 DNADRE KOHLER MD Ot N44.2 BENIGN CYST OF TESTIS 01/13/2018 DANDRE KOHLER MD Ot N43.4 1 SPERMATOCELE OF EPIDIDYMIS, SINGLE 01/13/2018 DANDRE KOHLER MD Ot Z01.8 18 ENCOUNTER FOR OTHER PREPROCEDURAL EXAMIN 01/17/2018 DANDRE KOHLER MD Ot N43.4 1 SPERMATOCELE OF EPIDIDYMIS, SINGLE 01/17/2018 DANDRE KOHLER MD Ot Z01.8 18 ENCOUNTER FOR OTHER PREPROCEDURAL EXAMIN 01/18/2018 DANDRE KOHLER MD Ot N44.2 BENIGN CYST OF TESTIS 01/18/2018 DANDRE KOHLER MD Ot N44.2 BENIGN CYST OF TESTIS 01/18/2018 DANDRE KOHLER MD Ot F17.2 10 NICOTINE DEPENDENCE, CIGARETTES, UNCOMPL 01/18/2018 DANDRE KOHLER MD Ot G40.9 09 EPILEPSY, UNSP, NOT INTRACTABLE, WITHOUT 01/18/2018 DANDRE KOHLER MD Ot 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 01/18/2018 DANDRE KOHLER MD Ot J44.9 CHRONIC OBSTRUCTIVE PULMONARY DISEASE, U 01/18/2018 DANDRE KOHLER MD Ot N43.4 1 SPERMATOCELE OF EPIDIDYMIS, SINGLE 01/18/2018 DANDRE KOHLER MD Ot Z95.5 PRESENCE OF CORONARY ANGIOPLASTY IMPLANT 01/27/2018 DANDRE KOHLER MD Ot N44.2 BENIGN CYST OF TESTIS 11/26/2018 TERESO LOMELI DO, Ot G40.909 EPILEPSY, UNSP, NOT INTRACTABLE, WITHOUT 11/26/2018 TERESO LOMELI DO Ot I25 .2 OLD MYOCARDIAL INFARCTION 11/26/2018 TERESO LOMELI DO, Ot J44 .9 CHRONIC OBSTRUCTIVE PULMONARY DISEASE, U 11/26/2018 TERESO LOMELI DO Ot K04 .7 PERIAPICAL ABSCESS WITHOUT SINUS 11/26/2018 TERESO LOMELI DO Ot K08.89 OTHER SPECIFIED DISORDERS OF TEETH AND S 11/26/2018 TERESO LOMELI DO Ot S09.90XA UNSPECIFIED INJURY OF HEAD, INITIAL ENCO 11/26/2018 TERESO LOMELI DO, Ot W19.XXXA UNSPECIFIED FALL, INITIAL ENCOUNTER 11/26/2018 TERESO LOMELI DO Ot Z85.07 PERSONAL HISTORY OF MALIGNANT NEOPLASM O 11/26/2018 TERESO LOMELI DO Ot Z87.442 PERSONAL HISTORY OF URINARY CALCULI 11/26/2018 TERESO LOMELI DO, Ot Z87.820 PERSONAL HISTORY OF TRAUMATIC BRAIN INJU 11/26/2018 TERESO LOMELI DO, Ot Z88 .0 ALLERGY STATUS TO PENICILLIN 11/26/2018 TERESO LOMELI DO Ot Z88 .1 ALLERGY STATUS TO OTHER ANTIBIOTIC AGENT 11/26/2018 TERESO LOMELI DO, Ot Z88 .6 ALLERGY STATUS TO ANALGESIC AGENT STATUS 11/26/2018 TERESO LOMELI DO Ot Z91.040 LATEX ALLERGY STATUS 11/26/2018 TERESO LOMELI DO Ot Z95 .5 PRESENCE OF CORONARY ANGIOPLASTY IMPLANT 11/26/2018 TERESO LOMELI DO Ot Z98.890 OTHER SPECIFIED POSTPROCEDURAL STATES 12/03/2018 TERESO LOMELI DO, Ot G40.909 EPILEPSY, UNSP, NOT INTRACTABLE, WITHOUT 12/03/2018 TERESO LOMELI DO Ot I25 .2 OLD MYOCARDIAL INFARCTION 12/03/2018 TERESO LOMELI DO, Ot J44 .9 CHRONIC OBSTRUCTIVE PULMONARY DISEASE, U 12/03/2018 TERESO LOMELI DO Ot K04 .7 PERIAPICAL ABSCESS WITHOUT SINUS 12/03/2018 TERESO LOMELI DO Ot K08.89 OTHER SPECIFIED DISORDERS OF TEETH AND S 12/03/2018 TERESO LOMELI DO Ot S09.90XA UNSPECIFIED INJURY OF HEAD, INITIAL ENCO 12/03/2018 TERESO LOMELI DO Ot W19.XXXA UNSPECIFIED FALL, INITIAL ENCOUNTER 12/03/2018 TERESO LOMELI DO Ot Z85.07 PERSONAL HISTORY OF MALIGNANT NEOPLASM O 12/03/2018 TERESO LOMELI DO Ot Z87.442 PERSONAL HISTORY OF URINARY CALCULI 12/03/2018 TERESO LOMELI DO, Ot Z87.820 PERSONAL HISTORY OF TRAUMATIC BRAIN INJU 12/03/2018 TERESO LOMELI DO, Ot Z88 .0 ALLERGY STATUS TO PENICILLIN 12/03/2018 TERESO LOMELI DO Ot Z88 .1 ALLERGY STATUS TO OTHER ANTIBIOTIC AGENT 12/03/2018 TERESO LOMELI DO Ot Z88 .6 ALLERGY STATUS TO ANALGESIC AGENT STATUS 12/03/2018 TERESO LOMELI DO Ot Z91.040 LATEX ALLERGY STATUS 12/03/2018 TERESO LOMELI DO Ot Z95 .5 PRESENCE OF CORONARY ANGIOPLASTY IMPLANT 12/03/2018 TERESO LOMELI DO Ot Z98.890 OTHER SPECIFIED POSTPROCEDURAL STATES 07/20/2019 LEEROY SCOTT MD Ot G40.909 EPILEPSY, UNSP, NOT INTRACTABLE, WITHOUT 07/20/2019 LEEROY SCOTT MD Ot G47. 00 INSOMNIA, UNSPECIFIED 07/20/2019 LEEROY SCOTT MD Ot J44. 9 CHRONIC OBSTRUCTIVE PULMONARY DISEASE, U 07/20/2019 LEEROY SCOTT MD Ot L03.113 CELLULITIS OF RIGHT UPPER LIMB 07/20/2019 LEEROY SCOTT MD Ot R20. 8 OTHER DISTURBANCES OF SKIN SENSATION 07/20/2019 LEEROY SCOTT MD Ot Z79.891 NET FISHER (CURRENT) USE OF OPIATE ANALGE 07/20/2019 LEEROY SCOTT MD Ot Z88. 0 ALLERGY STATUS TO PENICILLIN 07/20/2019 LEEROY SCOTT MD, Ot Z88. 1 ALLERGY STATUS TO OTHER ANTIBIOTIC AGENT 07/20/2019 LEEROY SCOTT MD, Ot Z88. 6 ALLERGY STATUS TO ANALGESIC AGENT STATUS 07/20/2019 LEEROY SCOTT MD, Ot Z91.040 LATEX ALLERGY STATUS 07/20/2019 LEEROY SCOTT MD, Ot Z91.048 OTHER NONMEDICINAL SUBSTANCE ALLERGY STA 07/20/2019 LEEROY SCOTT MD, Ot Z95. 1 PRESENCE OF AORTOCORONARY BYPASS GRAFT Procedures There is no data. Results Test Result Range Methicillin resistant Staphylococcus aur eus (MRSA) screening culture - 01/18/18 07:40 Methicillin resistant Staphylococcus aureus (MRSA) scr eening culture NEG NRG Complete blood count (CBC) with automate d white blood cell (WBC) differential - 07/17/19 13:45 Blood leukocytes automated count (number/volume) 6.7 10*3/uL 4.3-11.0 Blood erythrocytes automated count (number/volume) 5.13 10*6/uL 4.35-5.85 Venous blood hemoglobin measurement (mass/volume) 16.0 g/dL 13.3-17.7 Blood hematocrit (volume fraction) 45 % 40-54 Automated erythrocyte mean corpuscular volume 88 [ foz_us] 80-99 Automated erythrocyte mean corpuscular h emoglobin (mass per erythrocyte) 31 pg 25-34 Automated erythrocyte mean corpuscular h emoglobin concentration measurement (mass/volume) 35 g/dL 32-36 Automated erythrocyte distribution width ratio 12. 7 % 10.0- 14.5 Automated blood platelet count (count/volume) 158 10*3/uL 130-400 Automated blood platelet mean volume measurement 9.9 [foz_us] 7.4-10.4 Automated blood neutrophils/100 leukocytes 70 % 42-75 Automated blood lymphocytes/100 leukocytes 22 % 12-44 Blood monocytes/100 leukocytes 7 % 0-12 Automated blood eosinophils/100 leukocytes 1 % 0-10 Automated blood basophils/100 leukocytes 0 % 0-10 Blood neutrophils automated count (number/volume) 4.6 10*3 1.8-7.8 Blood lymphocytes automated count (number/volume) 1.5 10*3 1.0-4.0 Blood monocytes automated count (number/volume) 0. 4 10*3 0.0-1.0 Automated eosinophil count 0.1 10*3/uL 0 .0-0.3 Automated blood basophil count (count/volume) 0.0 10*3/uL 0.0-0.1 Comprehensive metabolic panel - 07/17/19 13:45 Serum or plasma sodium measurement (moles/volume) 138 mmol/L 135-145 Serum or plasma potassium measurement (moles/volume) 4.2 mmol/L 3.6-5.0 Serum or plasma chloride measurement (moles/volume) 100 mmol/L 98-107 Carbon dioxide 24 mmol/L 21-32 Serum or plasma anion gap determination (moles/volume) 14 mmol/L 5-14 Serum or plasma urea nitrogen measurement (mass/volume ) 10 mg/dL 7-18 Serum or plasma creatinine measurement (mass/volume) 1.01 mg/dL 0.60-1.30 Serum or plasma urea nitrogen/creatinine mass ratio 10 NRG Serum or plasma creatinine measurement w ith calculation of estimated glomerular filtration rate > NRG Serum or plasma glucose measurement (mass/volume) 147 mg/dL 70-105 Serum or plasma calcium measurement (mass/volume) 9.5 mg/dL 8.5-10.1 Serum or plasma total bilirubin measurement (mass/volu me) 0.5 mg/dL 0.1-1.0 Serum or plasma alkaline phosphatase leonides surement (enzymatic activity/volume) 75 U/L 40-136 Serum or plasma aspartate aminotransfera se measurement (enzymatic activity/volume) 11 U/L 5-34 Serum or plasma alanine aminotransferase measurement (enzymatic activity/volume) 10 U/L 0-55 Serum or plasma protein measurement (mass/volume) 6.6 g/dL 6.4-8.2 Serum or plasma albumin measurement (mass/volume) 4.1 g/dL 3.2-4.5 CALCIUM CORRECTED 9.4 mg/dL 8.5-10.1 Bacterial blood culture - 07/17/19 14:25 QUANTITY OF GROWTH . [facility] Bacterial blood culture SEE COMMEN NR Blood lactic acid measurement (moles/vol ume) - 07/17/19 14:45 Blood lactic acid measurement (moles/volume) 1.65 mmol/L 0.50-2.00 Bacterial blood culture - 07/17/19 14:45 Bacterial blood culture NG NRG Automated blood complete blood count (he mogram) panel - 07/18/19 08:28 Blood leukocytes automated count (number/volume) 5.6 10*3/uL 4.3-11.0 Blood erythrocytes automated count (number/volume) 4.88 10*6/uL 4.35-5.85 Venous blood hemoglobin measurement (mass/volume) 15.2 g/dL 13.3-17.7 Blood hematocrit (volume fraction) 44 % 40-54 Automated erythrocyte mean corpuscular volume 90 [ foz_us] 80-99 Automated erythrocyte mean corpuscular h emoglobin (mass per erythrocyte) 31 pg 25-34 Automated erythrocyte mean corpuscular h emoglobin concentration measurement (mass/volume) 35 g/dL 32-36 Automated erythrocyte distribution width ratio 13. 4 % 10.0- 14.5 Automated blood platelet count (count/volume) 162 10*3/uL 130-400 Automated blood platelet mean volume measurement 9.7 [foz_us] 7.4-10.4 Whole blood basic metabolic panel - 06/30 05/18 08:28 Serum or plasma sodium measurement (moles/volume) 138 mmol/L 135-145 Serum or plasma potassium measurement (moles/volume) 4.1 mmol/L 3.6-5.0 Serum or plasma chloride measurement (moles/volume) 108 mmol/L 98-107 Carbon dioxide 21 mmol/L 21-32 Serum or plasma anion gap determination (moles/volume) 9 mmol/L 5-14 Serum or plasma urea nitrogen measurement (mass/volume ) 12 mg/dL 7-18 Serum or plasma creatinine measurement (mass/volume) 1.09 mg/dL 0.60-1.30 Serum or plasma urea nitrogen/creatinine mass ratio 11 NRG Serum or plasma creatinine measurement w ith calculation of estimated glomerular filtration rate > NRG Serum or plasma glucose measurement (mass/volume) 108 mg/dL 70-105 Serum or plasma calcium measurement (mass/volume) 8.6 mg/dL 8.5-10.1 Vancomycin trough - 07/19/19 04:10 Vancomycin trough 18.3 ug/mL 10.0-20.0 Comprehensive metabolic panel - 02/14/20 17:50 Serum or plasma sodium measurement (moles/volume) 140 mmol/L 135-145 Serum or plasma potassium measurement (moles/volume) 4.1 mmol/L 3.6-5.0 Serum or plasma chloride measurement (moles/volume) 101 mmol/L 98-107 Carbon dioxide 22 mmol/L 21-32 Serum or plasma anion gap determination (moles/volume) 17 mmol/L 5-14 Serum or plasma urea nitrogen measurement (mass/volume ) 10 mg/dL 7-18 Serum or plasma creatinine measurement (mass/volume) 1.04 mg/dL 0.60-1.30 Serum or plasma urea nitrogen/creatinine mass ratio 10 NRG Serum or plasma creatinine measurement w ith calculation of estimated glomerular filtration rate > NRG Serum or plasma glucose measurement (mass/volume) 125 mg/dL 70-105 Serum or plasma calcium measurement (mass/volume) 9.2 mg/dL 8.5-10.1 Serum or plasma total bilirubin measurement (mass/volu me) 0.5 mg/dL 0.1-1.0 Serum or plasma alkaline phosphatase leonides surement (enzymatic activity/volume) 80 U/L 40-136 Serum or plasma aspartate aminotransfera se measurement (enzymatic activity/volume) 19 U/L 5-34 Serum or plasma alanine aminotransferase measurement (enzymatic activity/volume) 23 U/L 0-55 Serum or plasma protein measurement (mass/volume) 6.6 g/dL 6.4-8.2 Serum or plasma albumin measurement (mass/volume) 4.4 g/dL 3.2-4.5 CALCIUM CORRECTED 8.9 mg/dL 8.5-10.1 CRP FS - 02/14/20 17:50 CRP FS 0.69 mg/dL <0.50 Complete blood count (CBC) with automate d white blood cell (WBC) differential - 02/14/20 18:08 Blood leukocytes automated count (number/volume) 7.2 10*3/uL 4.3-11.0 Blood erythrocytes automated count (number/volume) 5.66 10*6/uL 4.35-5.85 Venous blood hemoglobin measurement (mass/volume) 17.8 g/dL 13.3-17.7 Blood hematocrit (volume fraction) 49 % 40-54 Automated erythrocyte mean corpuscular volume 87 [ foz_us] 80-99 Automated erythrocyte mean corpuscular h emoglobin (mass per erythrocyte) 31 pg 25-34 Automated erythrocyte mean corpuscular h emoglobin concentration measurement (mass/volume) 36 g/dL 32-36 Automated erythrocyte distribution width ratio 12. 7 % 10.0- 14.5 Automated blood platelet count (count/volume) 201 10*3/uL 130-400 Automated blood platelet mean volume measurement 9.4 [foz_us] 7.4-10.4 Automated blood neutrophils/100 leukocytes 56 % 42-75 Automated blood lymphocytes/100 leukocytes 35 % 12-44 Blood monocytes/100 leukocytes 6 % 0-12 Automated blood eosinophils/100 leukocytes 1 % 0-10 Automated blood basophils/100 leukocytes 1 % 0-10 Blood neutrophils automated count (number/volume) 4.0 10*3 1.8-7.8 Blood lymphocytes automated count (number/volume) 2.5 10*3 1.0-4.0 Blood monocytes automated count (number/volume) 0. 5 10*3 0.0-1.0 Automated eosinophil count 0.1 10*3/uL 0 .0-0.3 Automated blood basophil count (count/volume) 0.0 10*3/uL 0.0-0.1 Erythrocyte sedimentation rate by mitali gren method - 02/14/20 18:08 Erythrocyte sedimentation rate by westergren method 5 mm 0- 30 Encounters ACCT No. Visit Date/Time Discharge Status Pt. Type Provider Facility Loc./Unit Complaint [id number] 09/14/2013 16:06:00 09/14/2013 23:59: 59 CLS Outpatient LALITO LAGUNA, JOEL [id number] 02/14/2020 16:21:00 020 19:47:00 DIS Emergency ROSALIND LAGUNA, RIGOBERTO Hunt [facility] ER FS EAR PROBLEMS/PA IN [id number] 07/17/2019 16:08:00 019 09:51:00 DIS Outpatient TYLER LAGUNA, LEEROY [place] [facility] 4TH LYMPHANGITIS CELLULIT IS RIGHT ARM [id number] 11/26/2018 22:02:00 019 22:46:00 DIS Emergency TERESO LOMELI DO [facility] ER FS FACIAL INJURY/HEADACHE [id number] 01/18/2018 07:08:00 018 12:00:00 DIS Outpatient DANDRE KOHLER MD [facility] SDC RIGHT SPERMATOCELE [id number] 01/13/2018 13:30:00 018 16:50:00 DIS Outpatient DANDRE KOHLER MD [facility] PREOP RIGHT SPERMATOCELECTOMY [id number] 01/12/2018 11:34:00 018 23:59:59 CLS Outpatient DANDRE KOHLER MD [facility] RAD SCROTAL MASS [id number] 12/27/2017 18:55:00 018 21:28:00 DIS Emergency JOBY GALLEGOS [facility] ER POST SHOULDER SURGERY/ FALL/R SHOULDER INJ [id number] 11/17/2015 15:34:00 016 17:41:00 DIS Emergency JONI JOLLEY MD [facility] ER TESTICLE PAIN [id number] 06/08/2012 11:18:00 Document Registration [id number] 05/16/2014 08:52:24 05/16 08:52:24 DIS Outpatient [id number] 02/07/2020 13:00:00 02/07/2020 23:59:5 9 CLS Outpatient IVONNE LAGUNA, ALEX [facility]
== END 2020-02-14 19:47 | disposition home or self-care (01) ==
LOC: EDUNIT# 16:19 → ER FS 16:21
DX: H53.2 Diplopia (principal); H60.92 Unspecified otitis externa, left ear; H70.002 Acute mastoiditis without complications, left ear; I25.2 Old myocardial infarction; J44.9 Chronic obstructive pulmonary disease, unspecified; F17.210 Nicotine dependence, cigarettes, uncomplicated; Z85.07 Personal history of malignant neoplasm of pancreas; Z88.1 Allergy status to other antibiotic agents; Z88.0 Allergy status to penicillin; Z88.6 Allergy status to analgesic agent; Z91.040 Latex allergy status; Z88.8 Allergy status to other drugs, medicaments and biological substances; Z95.5 Presence of coronary angioplasty implant and graft
CPT/HCPCS: 36415; 70450; 70487; 80053; 85025; 85652; 86141

== ENCOUNTER 2020-03-06 18:15 | Emergency (ER) | payer MEDICAID ==
[~2020-03-06] VITALS: Ht 198.1 cm; Wt 109.0 kg
[~2020-03-06 18:15] MED LIST changes: +CEFD300C3 PO
[2020-03-06 18:20] VITALS: BP 147/111
--- NOTE | 2020-03-06 18:34 | ED General ---
General Stated Complaint: WRIST PAIN Source of Information: Patient History of Present Illness Date Seen by Provider: Mar 06, 2020 Time Seen by Provider: 18:31 Initial Comments Patient is a left-handed male who presents with left hand injury. Patient was working on a vehicle when the bottom of the thecal slammed onto his left hand. Injury occurred just prior to ED arrival. No obvious deformity, full range of motion and mobility throughout. No medications or therapies taken prior to ED arrival. Timing/Duration: 1 Hour Severity: Mild Modifying Factors: improves with Movement Associated Systoms: Denies Symptoms Allergies and Home Medications Allergies Coded Allergies: ofloxacin (Verified Allergy, Mild, 07/17/19) Penicillins (Verified Adverse Reaction, Unknown, Pt has received Ceftriaxone in the past, 07/17/19) aspirin (Verified Adverse Reaction, Unknown, 07/17/19) latex (Verified Adverse Reaction, Unknown, 07/17/19) Uncoded Allergies: TAPE (Allergy, Mild, 07/17/09) Home Medications Albuterol Sulfate 1 Puff Puff, 2 PUFF INH Q4H 1 PUFF = 90 MCG Prescribed by: LEEROY SCOTT on 07/20/19 0932 Cefdinir 300 Mg Capsule, 300 MG PO BID Prescribed by: RIGOBERTO WARE on 02/14/20 194 Cephalexin 500 Mg Capsule, 500 MG PO BID Prescribed by: LEEROY SCOTT on 07/20/19 0912 Melatonin 5 Mg Capsule, 5-10 MG PO HS PRN for SLEEP, (Reported) Patient Home Medication List Home Medication List Reviewed: Yes Review of Systems Review of Systems Constitutional: no symptoms reported Cardiovascular: no symptoms reported Gastrointestinal: no symptoms reported Genitourinary: no symptoms reported Musculoskeletal: see HPI Skin: no symptoms reported Psychiatric/Neurological: No Symptoms Reported Hematologic/Lymphatic: No Symptoms Reported Immunological/Allergic: no symptoms reported Past Exkzmly-Aqiidz-Mphirn Hx Past Med/Social Hx: Reviewed Nursing Past Med/Soc Hx Patient Social History Alcohol Beverage of Choice: Beer Type Used: Cigarettes 2nd Hand Smoke Exposure: No Recent Foreign Travel: No Contact w/Someone Who Travel: No Recent Hopitalizations: No Immunizations Up To Date PED Vaccines UTD: Yes Seasonal Allergies Seasonal Allergies: No Past Medical History Surgeries: Yes (hernia repair, left testicle injury, brain surgery) Coronary Stent, Orthopedic Respiratory: Yes COPD Cardiac: Yes (STENT) Heart Attack Neurological: Yes Seizure Disorder Reproductive Disorders: No Sexually Transmitted Disease: No HIV/AIDS: No Genitourinary: Yes Kidney Stones Gastrointestinal: No Musculoskeletal: No Endocrine: No HEENT: Yes Loss of Vision: Bilateral Cancer: Yes Pancreatic Psychosocial: No Integumentary: No Blood Disorders: No Adverse Reaction/Blood Tranf: No (N/A) Family Medical History No Pertinent Family Hx Physical Exam Vital Signs Capillary Refill : Height, Weight, BMI Height: 6'4.00" Weight: 225lbs. 0.0oz. 102.530200ab; 28.00 BMI Method:Stated General Appearance: No Apparent Distress Eyes: Bilateral Eye Normal Inspection, Bilateral Eye PERRL HEENT: PERRL/EOMI, Normal ENT Inspection Neck: Full Range of Motion Respiratory: Normal Breath Sounds Cardiovascular: Regular Rate, Rhythm Extremity: Swelling (minimal swelling noted to the dorsum of left hand proximal to first and second MCP joints. No deformity, abrasions, decreased range of motion noted.), Other Neurologic/Psychiatric: Alert, Oriented x3, No Motor/Sensory Deficits Focused Exam Sepsis Stage: Ruled Out Progress/Results/Core Measures Suspected Sepsis SIRS Temperature: Pulse: Respiratory Rate: Blood Pressure / Mean: Results/Orders My Orders Orders - JESSICA DANIELLE DO Acetaminophen Tablet (Tylenol Tablet) (03/06/20 18:30) Hand 3 View Left (03/06/20 18:27) Vital Signs/I&O Capillary Refill : Departure Communication (Admissions) Left hand x-ray: Pending Will obtain x-ray per patient request as he states initially he did sprain/sees swelling with possible deformity and left hand which has since resolved. Anticipate discharge home with supportive measures with PCP follow-up as needed. Impression Primary Impression: Contusion of left hand Disposition: HOME, SELF-CARE Condition: Stable Departure-Patient Inst. Decision time for Depature: 18:34 Patient Instructions: Contusion (DC) Add. Discharge Instructions: Please take Tylenol for pain and apply ice to the affected are. Follow up with your PCP in 3-5 days as needed if pain persists. JESSICA DANIELLE DO Mar 06, 2020 18:34
[2020-03-06] MEDS: ACETAMINOPHEN 500 MG TAB (TYLENOL) PO ONE ×2 (18:35→18:52)
--- NOTE | 2020-03-06 18:45 | NUR ---
Pt refused Tylenol stating he can not take Tylenol but has just taken Ibuprofen.
--- NOTE | 2020-03-06 18:47 | Diagnostic Imaging Report ---
INDICATION: Left hand pain. Car mario fell on hand. Pain predominantly in the 2nd metacarpal region. EXAMINATION: Left hand, 03/06/2020. FINDINGS: Three views of the hand. No fracture or dislocation appreciated. Joint spaces maintained. Soft tissues grossly unremarkable. IMPRESSION: Negative hand. Dictated by: Dictated on workstation # [id number]
--- OUTSIDE RECORDS SUMMARY | 2020-03-06 22:00 | XMS REPORT | Continuity of Care Document ---
Author Organization Unknown Address Unknown Phone Unavailable Allergies Active Description Code Type Severity Reaction Onset Reported/Identified Relationship to Patient Clinical Status Yes codeine [id number] Drug Allergy Mild N/A 07/17/2009 Yes TAPE TAPE Mild N/A 07/17/2009 Yes aspirin Drug Allergy N/A N/A 10/11/2009 Yes latex OA N/A N/A 10/11/2009 Yes ofloxacin Drug Allergy N/A N/A 10/11/2009 Yes Penicillins Drug Allergy N/A N/A 10/11/2009 Yes tape OA N/A N /A 10/11/2009 Yes Penicillins [id number] Drug Aller gy Unknown N/A 01/13/2018 Yes ofloxacin [id number] Drug Allergy Mild N/A 07/17/2019 Yes aspirin [id number] Drug Allergy Unknown N/A 07/17/2019 Yes latex [id number] Drug Allergy Unknown N/A 07/17/2019 Yes Penicillins [id number] Drug Aller gy Unknown Pt has received [...] CHRONIC OBSTRUCTIVE PULMONARY DISEASE, U 12/29/2017 JOBY GALLGEOS Ot M25.511 PAIN IN RIGHT SHOULDER 12/29/2017 [...] Ot I25.1 0 ATHSCL HEART DISEASE OF [place] CORONARY 01/18/2018 DANDRE KOHLER MD Ot J44.9 [...] SENSATION 07/20/2019 LEEROY SCOTT MD Ot Z79.891 FILER FINISH (CURRENT) USE OF OPIATE ANALGE 07/20/2019 TYLER LAGUNA, LEEROY Ellsworth Ot Z88. 0 ALLERGY STATUS TO PENICILLIN 07/20/2019 LEEROY SCOTT MD Ot Z88. 1 ALLERGY STATUS TO OTHER ANTIBIOTIC AGENT 07/20/2019 LEEROY SCOTT MD Ot Z88. 6 ALLERGY STATUS TO ANALGESIC AGENT STATUS 07/20/2019 LEEROY SCOTT MD Ot Z91.040 LATEX ALLERGY STATUS 07/20/2019 LEEROY SCOTT MD Ot Z91.048 OTHER NONMEDICINAL SUBSTANCE ALLERGY STA 07/20/2019 LEEROY SCOTT MD, Ot Z95. 1 PRESENCE OF AORTOCORONARY BYPASS GRAFT 02/19/2020 ROSALIND LAGUNA, RIGOBERTO Hunt Ot F17.210 NICOTINE DEPENDENCE, CIGARETTES, UNCOMPL 02/19/2020 RIGOBERTO BOYER MD Ot H53.2 DIPLOPIA 02/19/2020 ROSALIND LAGUNA, RIGOBERTO Hunt Ot H60.92 UNSPECIFIED OTITIS EXTERNA, LEFT EAR 02/19/2020 RIGOBERTO BOYER MD Ot H70.002 ACUTE MASTOIDITIS WITHOUT COMPLICATIONS, 02/19/2020 RIGOBERTO BOYER MD Ot H92.02 OTALGIA, LEFT EAR 02/19/2020 RIGOBERTO BOYER MD Ot I25.2 OLD MYOCARDIAL INFARCTION 02/19/2020 RIGOBERTO BOYER MD Ot J44.9 CHRONIC OBSTRUCTIVE PULMONARY DISEASE, U 02/19/2020 RIGOBERTO BOYER MD Ot Z85.07 PERSONAL HISTORY OF MALIGNANT NEOPLASM O 02/19/2020 RIGOBERTO BOYER MD Ot Z88.0 ALLERGY STATUS TO PENICILLIN 02/19/2020 RIGOBERTO BOYER MD Ot Z88.1 ALLERGY STATUS TO OTHER ANTIBIOTIC AGENT 02/19/2020 RIGOBERTO BOYER MD Ot Z88.6 ALLERGY STATUS TO ANALGESIC AGENT STATUS 02/19/2020 RIGOBERTO BOYER MD Ot Z88.8 ALLERGY STATUS TO OTH DRUG/MEDS/BIOL SUB 02/19/2020 RIGOBERTO BOYER MD Ot Z91.040 LATEX ALLERGY STATUS 02/19/2020 RIGOBERTO BOYER MD Ot Z95.5 PRESENCE OF CORONARY ANGIOPLASTY IMPLANT Procedures There is no data. Results Test [...] - 07/17/19 14:25 QUANTITY OF GROWTH . [facility] Bacterial blood culture SEE COMMEN [facility] Blood lactic acid measurement (moles/vol ume) - 07/17/19 14:45 Blood lactic acid measurement (moles/volume) 1.65 mmol/L 0.50-2.00 Bacterial blood culture - 07/17/19 14:45 Bacterial blood culture [facility] Automated blood complete blood count (he mogram) [...] Status Pt. Type Provider Facility Loc./Unit Complaint [id number] 09/14/2013 16:06:00 09/14/2013 23:59: 59 CLS Outpatient LALITO LAGUNA, JOEL [id number] 03/06/2020 18:17:00 19:00:00 DIS Emergency JESSICA DANIELLE DO Via [facility] [address] ER FS WRIST PAIN [id number] 02/14/2020 16:21:00 19:47:00 DIS Outpatient ROSALIND LAGUNA, RIGOBERTO Hunt Via [facility] [address] ER FS EAR PROBLEMS/PA IN [id number] 07/17/2019 16:08:00 019 09:51:00 DIS Outpatient TYLER LAGUNA, LEEROY Ellsworth Via [facility] [address] 4TH LYMPHANGITIS CELLULIT IS RIGHT ARM [id number] 11/26/2018 22:02:00 019 22:46:00 DIS Emergency TERESO LOMELI DO Via [facility] [address] ER FS FACIAL INJURY/HEADACHE [id number] 01/18/2018 07:08:00 018 12:00:00 DIS Outpatient DANDRE KOHLER MD Via [facility] RIGHT SPERMATOCELE [id number] 01/13/2018 13:30:00 018 16:50:00 DIS Outpatient DANDRE KOHLER MD Via [facility] [address] PREOP RIGHT SPERMATOCELECTOMY [id number] 01/12/2018 11:34:00 018 23:59:59 CLS Outpatient JOSE F LAGUNA, DANDRE Loera Via [facility] [address] RAD SCROTAL MASS [id number] 12/27/2017 18:55:00 018 21:28:00 DIS Emergency JOBY GALLEGOS Via [facility] [address] ER POST SHOULDER SURGERY/ FALL/R SHOULDER INJ [id number] 11/17/2015 15:34:00 016 17:41:00 DIS Emergency SHOLA LAGUNA, JONI Burnham Via [facility] [address] ER TESTICLE PAIN [id number] 06/08/2012 11:18:00 Document Registration [id number] 05/16/2014 08:52:24 05/16 08:52:24 DIS Outpatient [id number] 02/14/2020 15:40:00 02/14/2020 23:59:5 9 CLS Outpatient IVONNE LAGUNA, [facility]LEX [facility]
== END 2020-03-06 19:00 | disposition home or self-care (01) ==
LOC: EDUNIT# 18:15 → ER FS 18:17
DX: S60.222A Contusion of left hand, initial encounter (principal); I25.2 Old myocardial infarction; J44.9 Chronic obstructive pulmonary disease, unspecified; Z88.1 Allergy status to other antibiotic agents; Z88.0 Allergy status to penicillin; Z88.6 Allergy status to analgesic agent; Z91.040 Latex allergy status; Z88.8 Allergy status to other drugs, medicaments and biological substances; Z95.5 Presence of coronary angioplasty implant and graft; Z85.07 Personal history of malignant neoplasm of pancreas; W22.8XXA Striking against or struck by other objects, initial encounter
CPT/HCPCS: 73130

== ENCOUNTER 2020-03-10 12:12 | Emergency (ER) | payer MEDICAID ==
--- OUTSIDE RECORDS SUMMARY | 2020-03-10 12:18 | XMS REPORT | Continuity of Care Document ---
Author Organization Unknown Address Unknown Phone Unavailable Allergies Active Description Code Type Severity Reaction Onset Reported/Identified Relationship to Patient Clinical Status Yes codeine [id number] Drug Allergy Mild N/A 07/17/2009 Yes TAPE TAPE Mild N/A 07/17/2009 Yes aspirin Drug Allergy N/A N/A 10/11/2009 Yes latex OA N/A N/A 10/11/2009 Yes ofloxacin Drug Allergy N/A N/A 10/11/2009 Yes Penicillins Drug Allergy N/A N/A 10/11/2009 Yes tape OA N/A N /A 10/11/2009 Yes Penicillins [id number] Drug Aller gy Unknown N/A 01/13/2018 Yes ofloxacin [id number] Drug Allergy Mild N/A 07/17/2019 Yes aspirin [id number] Drug Allergy Unknown N/A 07/17/2019 Yes latex [id number] Drug Allergy Unknown N/A 07/17/2019 Yes Penicillins [id number] Drug Aller gy Unknown Pt has received [...] HISTORY OF MALIGNANT NEOPLASM O 12/29/2017 JOBY AGLLEGOS Ot Z87.442 PERSONAL HISTORY OF URINARY CALCULI [...] Ot I25.1 0 ATHSCL HEART DISEASE OF [place] CORONARY 01/18/2018 DANDRE KOHLER MD Ot J44.9 [...] SENSATION 07/20/2019 LEEROY SCOTT MD Ot 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 [facility] Bacterial blood culture SEE COMMEN [facility] Blood lactic acid measurement (moles/vol ume) - 07/17/19 14:45 Blood lactic acid measurement (moles/volume) 1.65 mmol/L 0.50-2.00 Bacterial blood culture - 07/17/19 14:45 Bacterial blood culture [facility] Automated blood complete blood count [...] Status Pt. Type Provider Facility Loc./Unit Complaint [id number] 09/14/2013 16:06:00 09/14/2013 23:59: 59 CLS Outpatient LALITO LAGUNA, JOEL [id number] 03/06/2020 18:17:00 19:00:00 DIS Emergency JESSICA DANIELLE DO Via [facility] ER FS WRIST PAIN [id number] 02/14/2020 16:21:00 19:47:00 DIS Outpatient ROSALIND LAGUNA, RIGOBERTO Hunt Via [facility] ER FS EAR PROBLEMS/PA IN [id number] 07/17/2019 16:08:00 019 09:51:00 DIS Outpatient TYLER LAGUNA, LEEROY Ellsworth Via [facility] 4TH LYMPHANGITIS CELLULIT IS RIGHT ARM [id number] 11/26/2018 22:02:00 019 22:46:00 DIS Emergency TERESO LOMELI DO Via [facility] ER FS FACIAL INJURY/HEADACHE [id number] 01/18/2018 07:08:00 018 12:00:00 DIS Outpatient DANDRE KOHLER MD Via [facility] RIGHT SPERMATOCELE [id number] 01/13/2018 13:30:00 018 16:50:00 DIS Outpatient DANDRE KOHLER MD Via [facility] PREOP RIGHT SPERMATOCELECTOMY [id number] 01/12/2018 11:34:00 018 23:59:59 CLS Outpatient JOSE F LAGUNA, DANDRE Loera Via [facility] RAD SCROTAL MASS [id number] 12/27/2017 18:55:00 018 21:28:00 DIS Emergency JOBY GALLEGOS Via [facility] ER POST SHOULDER SURGERY/ FALL/R SHOULDER INJ [id number] 11/17/2015 15:34:00 016 17:41:00 DIS Emergency SHOLA LAGUNA, JONI Burnham Via [facility] ER TESTICLE PAIN [id number] 06/08/2012 11:18:00 Document Registration [id number] 05/16/2014 08:52:24 05/16 08:52:24 DIS Outpatient [id number] 02/14/2020 15:40:00 02/14/2020 23:59:5 9 CLS Outpatient IVONNE LAGUNA, ALEX [facility]
--- NOTE | 2020-03-10 12:29 | ED Abdominal Pain ---
General Chief Complaint: Abdominal/GI Problems Stated Complaint: ABD PAIN History of Present Illness Date Seen by Provider: Mar 10, 2020 Time Seen by Provider: 12:24 Initial Comments Pt brought by EMS from home for abdominal pain. Pain began this morning and is in RLQ. He has vomited this morning as well. No fever. Received 100 mcg of Fentanyl by EMS prior to arrival. Allergies and Home Medications Allergies Coded Allergies: ofloxacin (Verified Allergy, Mild, 07/17/19) Penicillins (Verified Adverse Reaction, Unknown, Pt has received Ceftriaxone in the past, 07/17/19) aspirin (Verified Adverse Reaction, Unknown, 07/17/19) latex (Verified Adverse Reaction, Unknown, 07/17/19) Uncoded Allergies: TAPE (Allergy, Mild, 07/17/09) Home Medications Albuterol Sulfate 1 Puff Puff, 2 PUFF INH Q4H 1 PUFF = 90 MCG Prescribed by: LEEROY SCOTT on 07/20/19 0932 Cefdinir 300 Mg Capsule, 300 MG PO BID Prescribed by: RIGOBEROT WARE on 02/14/20 194 Cephalexin 500 Mg Capsule, 500 MG PO BID Prescribed by: LEEROY SCOTT on 07/20/19 0912 Melatonin 5 Mg Capsule, 5-10 MG PO HS PRN for SLEEP, (Reported) Patient Home Medication List Home Medication List Reviewed: Yes Review of Systems Review of Systems Constitutional: No chills; diaphoresis; No fever EENTM: No Symptoms Reported Respiratory: Denies Cough, Denies Shortness of Air Cardiovascular: Denies Chest Pain, Denies Syncope Gastrointestinal: Abdominal Pain, Diarrhea, Nausea, Vomiting Genitourinary: No Symptoms Reported Skin: no symptoms reported Psychiatric/Neurological: No Symptoms Reported Hematologic/Lymphatic: No Symptoms Reported Past Yvmpcjw-Hbslkb-Gccvdz Hx Patient Social History Alcohol Use: Denies Use Number of Drinks Today: AA Alcohol Beverage of Choice: Beer Recreational 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) Smoking Status: Current Everyday Smoker Type Used: Cigarettes 2nd Hand Smoke Exposure: No Recent Hopitalizations: No Immunizations Up To Date PED Vaccines UTD: Yes Seasonal Allergies Seasonal Allergies: No Past Medical History Surgeries: Yes (hernia repair, left testicle injury, brain surgery) Coronary Stent, Orthopedic Respiratory: Yes COPD Cardiac: Yes (STENT) Heart Attack Neurological: Yes Seizure Disorder Reproductive Disorders: No Sexually Transmitted Disease: No HIV/AIDS: No Genitourinary: Yes Kidney Stones Gastrointestinal: No Musculoskeletal: No Endocrine: No HEENT: Yes Loss of Vision: Bilateral Cancer: Yes Pancreatic Psychosocial: No Integumentary: No Blood Disorders: No Adverse Reaction/Blood Tranf: No (N/A) Family Medical History No Pertinent Family Hx Physical Exam Vital Signs Vital Signs - First Documented 03/10/20 12:19 Temp 35.3 Pulse 75 Resp 22 B/P (MAP) 137/112 (120) Pulse Ox 97 Capillary Refill : Height/Weight/BMI Height: 6'4.00" Weight: 225lbs. 0.0oz. 102.138151zc; 27.00 BMI Method:Stated General Appearance: WD/WN, other (Uncomfortable appearing) HEENT: normal ENT inspection Neck: supple Respiratory: normal breath sounds, no respiratory distress Cardiovascular: regular rate, rhythm, no edema Gastrointestinal: soft, tenderness (RLQ) Extremities: normal inspection Back: no CVA tenderness Neurologic/Psychiatric: no motor/sensory deficits, alert, normal mood/affect, oriented x 3 Skin: normal color, warm/dry Progress/Results/Core Measures Results/Orders Lab Results Laboratory Tests Test 03/10/20 12:20 03/10/20 13:32 Range/Units White Blood Count 6.8 4.3-11.0 10^3/uL Red Blood Count 5.14 4.35-5.85 10^6/uL Hemoglobin 16.1 13.3-17.7 G/DL Hematocrit 45 40-54 % Mean Corpuscular Volume 87 80-99 FL Mean Corpuscular Hemoglobin 31 25-34 PG Mean Corpuscular Hemoglobin Concent 36 32-36 G/DL Red Cell Distribution Width 12.4 10.0-14.5 % Platelet Count 187 130-400 10^3/uL Mean Platelet Volume 9.4 7.4-10.4 FL Neutrophils (%) (Auto) 56 42-75 % Lymphocytes (%) (Auto) 35 12-44 % Monocytes (%) (Auto) 5 0-12 % Eosinophils (%) (Auto) 1 0-10 % Basophils (%) (Auto) 0 0-10 % Neutrophils # (Auto) 3.8 1.8-7.8 X 10^3 Lymphocytes # (Auto) 2.4 1.0-4.0 X 10^3 Monocytes # (Auto) 0.4 0.0-1.0 X 10^3 Eosinophils # (Auto) 0.2 0.0-0.3 10^3/uL Basophils # (Auto) 0.0 0.0-0.1 10^3/uL Neutrophils % (Manual) 58 % Lymphocytes % (Manual) 38 % Monocytes % (Manual) 3 % Eosinophils % (Manual) 0 % Basophils % (Manual) 1 % Band Neutrophils 0 % Blood Morphology Comment NORMAL Sodium Level 139 135-145 MMOL/L Potassium Level 3.9 3.6-5.0 MMOL/L Chloride Level 104 98-107 MMOL/L Carbon Dioxide Level 23 21-32 MMOL/L Anion Gap 12 5-14 MMOL/L Blood Urea Nitrogen 9 7-18 MG/DL Creatinine 1.11 0.60-1.30 MG/DL Estimat Glomerular Filtration Rate > 60 BUN/Creatinine Ratio 8 Glucose Level 129 H 70-105 MG/DL Calcium Level 9.2 8.5-10.1 MG/DL Corrected Calcium 9.0 8.5-10.1 MG/DL Total Bilirubin 0.3 0.1-1.0 MG/DL Aspartate Amino Transf (AST/SGOT) 17 5-34 U/L Alanine Aminotransferase (ALT/SGPT) 18 0-55 U/L Alkaline Phosphatase 73 40-136 U/L Total Protein 6.3 L 6.4-8.2 GM/DL Albumin 4.2 3.2-4.5 GM/DL Lipase 28 8-78 U/L Urine Color YELLOW Urine Clarity CLEAR Urine pH 6.0 5-9 Urine Specific [place] 1.025 H 1.016-1.022 Urine Protein 1+ H NEGATIVE Urine Glucose (UA) NEGATIVE NEGATIVE Urine Ketones NEGATIVE NEGATIVE Urine Nitrite NEGATIVE NEGATIVE Urine Bilirubin NEGATIVE NEGATIVE Urine Urobilinogen 0.2 < = 1.0 MG/DL Urine Leukocyte Esterase NEGATIVE NEGATIVE Urine RBC (Auto) 3+ H NEGATIVE Urine RBC >100 H /HPF Urine WBC NONE /HPF Urine Squamous Epithelial Cells 0-2 /HPF Urine Crystals NONE /LPF Urine Bacteria NONE /HPF Urine Casts NONE /LPF Urine Mucus SMALL H /LPF Urine Culture Indicated NO My Orders Orders - PAIGE PENNINGTON MD Cbc And Manual Diff (03/10/20 12:19) Comprehensive Metabolic Panel (7/12/20 12:19) Lipase (03/10/20 12:19) Urinalysis (03/10/20 12:19) Ct Abd/Pelv W (Appendicitis) (03/10/20 12:19) Ns Iv 1000 Ml (Sodium Chloride 0.9%) (03/10/20 12:30) Morphine Injection (Morphine Injection (03/10/20 12:32) Iohexol Injection (Omnipaque 350 Mg/Ml 1 (03/10/20 12:45) Received Contrast (Hold Metformin- Contr (03/10/20 12:45) Sodium Chloride Flush (Catheter Flush Sy (03/10/20 12:45) Ns (Ivpb) (Sodium Chloride 0.9% Ivpb Bag (03/10/20 12:45) Ketorolac Injection (Toradol Injection) (03/10/20 14:45) Medications Given in ED Current Medications Medications Dose Ordered Sig/Alis Route Start Time Stop Time Status Last Admin Dose Admin Iohexol 100 ml ONCE ONCE IV 03/10/20 12:45 03/10/20 12:46 DC 03/10/20 13:35 100 ML Sodium Chloride 10 ml NEEDED PRN IV 03/10/20 12:45 03/10/20 13:35 10 ML Sodium Chloride 100 ml ONCE ONCE IV 03/10/20 12:45 03/10/20 12:46 DC 03/10/20 13:35 100 ML Vital Signs/I&O 03/10/20 12:19 Temp 35.3 Pulse 75 Resp 22 B/P (MAP) 137/112 (120) Pulse Ox 97 Progress Progress Note : Time: 14:39 Progress Note Appears more comfortable after Morphine. Still with some pain though, has ureteral stone on CT. Will give a dose of Toradol. Will discharge home with Seymour and Flomax, advised to return if worse, can follow up with Urologist if doesn't pass in the next few days. Departure Impression Primary Impression: Ureterolithiasis Disposition: 01 HOME, SELF-CARE Condition: Improved Departure-Patient Inst. Decision time for Depature: 14:42 Referrals: NO,LOCAL PHYSICIAN (PCP) Primary Care Physician DANDRE KOHLER MD Patient Instructions: Kidney Stones (DC) Scripts Tamsulosin HCl (Flomax) 0.4 Mg Cap 0.4 MG PO DAILY for 7 Days, #7 CAP Prov: PAIGE PENNINGTON MD 03/10/20 Hydrocodone/Acetaminophen (Hydrocodone-Acetamin 5-325 mg) 1 Each Tablet 1 EACH PO Q6H PRN for PAIN-BREAKTHROUGH, #20 TAB Prov: PAIGE PENNINGTON MD 03/10/20 PAIGE PENNINGTON MD Mar 10, 2020 12:29
[2020-03-10] MEDS ORDERED: NS IV 1000 ML 1,000 ML IV SCH (12:30)
[2020-03-10 12:31] LABS: WHITE BLOOD COUNT 6.8 10^3/uL (4.3-11.0)
[2020-03-10 12:32] LABS: BASOPHILS % (AUTO) 0 % (0-10); EOSINOPHILS # (AUTO) 0.2 10^3/uL (0.0-0.3); EOSINOPHILS % (AUTO) 1 % (0-10); HEMATOCRIT 45 % (40-54); HEMOGLOBIN 16.1 G/DL (13.3-17.7); LYMPHOCYTES # (AUTO) 2.4 X 10^3 (1.0-4.0); LYMPHOCYTES % (AUTO) 35 % (12-44); MEAN CORPUSCULAR HEMOGLOBIN 31 PG (25-34); MEAN CORPUSCULAR HGB CONC 36 G/DL (32-36); MEAN CORPUSCULAR VOLUME 87 FL (80-99); MEAN PLATELET VOLUME 9.4 FL (7.4-10.4); MONOCYTES # (AUTO) 0.4 X 10^3 (0.0-1.0); MONOCYTES % (AUTO) 5 % (0-12); NEUTROPHILS # (AUTO) 3.8 X 10^3 (1.8-7.8); NEUTROPHILS % (AUTO) 56 % (42-75); PLATELET COUNT 187 10^3/uL (130-400); RED CELL DISTRIBUTION WIDTH 12.4 % (10.0-14.5)
[2020-03-10] MEDS ORDERED: morphine INJ 10 MG/ML 1ML (SYR OR VIAL) IVP STA (12:32)
[2020-03-10] MEDS ORDERED: HOLD METFORMIN - RECEIVED CONTRAST 20 ML VIAL IV SCH (12:45)
[2020-03-10] MEDS ORDERED: CATHETER FLUSH 10 ML SYR IV PRN (12:45)
[2020-03-10] MEDS ORDERED: NS 100 ML (IVPB) BAG IV ONE (12:45)
[2020-03-10] MEDS ORDERED: IOHEXOL 350 MG/ML 100 ML (OMNIPAQUE 350) VIAL IV ONE (12:45)
[2020-03-10 12:58] LABS: BAND NEUTROPHILS 0 %; BASOPHILS % (MANUAL) 1 %; EOSINOPHILS % (MANUAL) 0 %; LYMPHOCYTES % (MANUAL) 38 %; MONOCYTES % (MANUAL) 3 %; NEUTROPHILS % (MANUAL) 58 %
[2020-03-10 12:59] LABS: RBC MORPH NORMAL
[2020-03-10 13:13] LABS: ALANINE AMINOTRANSFERASE 18 U/L (0-55); ALKALINE PHOSPHATASE 73 U/L (40-136); BILIRUBIN,TOTAL 0.3 MG/DL (0.1-1.0); BUN/CREATININE RATIO 8; CALCIUM 9.2 MG/DL (8.5-10.1); CARBON DIOXIDE 23 MMOL/L (21-32); CHLORIDE 104 MMOL/L (98-107); CREATININE SERUM 1.11 MG/DL (0.60-1.30); GFR ESTIMATED > 60; GLUCOSE 129 MG/DL (70-105); POTASSIUM 3.9 MMOL/L (3.6-5.0); SODIUM 139 MMOL/L (135-145); TOTAL PROTEIN 6.3 GM/DL (6.4-8.2)
[2020-03-10 13:14] LABS: ALBUMIN 4.2 GM/DL (3.2-4.5); LIPASE 28 U/L (8-78)
[2020-03-10 13:43] LABS: BILIRUBIN,URINE NEGATIVE (NEGATIVE); CLARITY,URINE CLEAR; COLOR,URINE YELLOW; GLUCOSE, URINE (UA) NEGATIVE (NEGATIVE); KETONES,URINE NEGATIVE (NEGATIVE); LEUKOCYTE ESTERASE ,URINE NEGATIVE (NEGATIVE); NITRITE,URINE NEGATIVE (NEGATIVE); PROTEIN,URINE 1+ (NEGATIVE); RBC,URINE >100 /HPF; SQUAMOUS EPITHELIAL CELL,UR 0-2 /HPF
--- NOTE | 2020-03-10 14:14 | Diagnostic Imaging Report ---
PROCEDURE: CT abdomen and pelvis with contrast, rule out appendicitis. TECHNIQUE: Multiple contiguous axial images were obtained through the abdomen and pelvis after the administration of intravenous contrast. All CT scans use one or more of the following dose optimizing techniques: automated exposure control, MA and/or KvP adjustment based on a patient size and exam type, or iterative reconstruction. DATE: March 10, 2020. COMPARISON: None. INDICATION: 50-year-old male, right lower quadrant abdominal pain. FINDINGS: The visualized portions of the lung bases are clear. The heart is not enlarged. There is no pericardial effusion. The liver is normal in size and contour. There is no identified liver lesion. The patient is status post cholecystectomy. There is mild left intrahepatic bile duct dilation. The main, right, and left portal veins are patent. There is no dilation of the common bile duct. The main pancreatic duct is not abnormally dilated. Unremarkable appearance of the pancreatic parenchyma. The spleen is normal in size. The adrenal glands are unremarkable. There is a 6 mm nonobstructing right renal stone on axial image 35. There is very mild right hydronephrosis. There is no identified current ureteral stone. There is a 2 mm nonobstructing left renal stone on axial image 41. The left urinary collecting system is not distended. There is no identified left ureteral stone. The urinary bladder is unremarkable in appearance. The intestinal tract is not distended. The appendix is unremarkable and well seen. There is a duodenal diverticulum at the level of the proximal third portion of duodenum. There is a small fat-containing umbilical hernia. There is a small fat-containing right inguinal hernia. There is no free intracranial air, drainable fluid collection, or free pelvic fluid. There are atherosclerotic calcifications. There is no identified abnormally enlarged lymph node in the abdomen or pelvis which meets CT size criteria for adenopathy. There are bilateral L5 pars interarticularis defects without current abnormal alignment of L5 relative to S1. There is no identified acute bony abnormality. IMPRESSION: CT ABDOMEN AND PELVIS. 1.6 mm nonobstructing right renal stone and 2 mm nonobstructing left renal stone. There is mild right hydronephrosis without identified current ureteral stone. Recommend correlation for potential recent stone passage on the right. 2. Normal appearance of the appendix. 3. No otherwise identified acute abnormality in the abdomen or pelvis. Dictated by: Dictated on workstation # [id number]
[2020-03-10] MEDS ORDERED: HYDR-83 PO (14:44)
[2020-03-10] MEDS ORDERED: TMSL.4C PO (14:44)
[2020-03-10] MEDS ORDERED: KETOROLAC 30 MG/ML VIAL IVP ONE (14:45)
[2020-03-10 14:52] VITALS: BP 150/74
== END 2020-03-10 14:51 | disposition home or self-care (01) ==
LOC: EDUNIT# 12:12 → ER FS 12:13
DX: N13.2 Hydronephrosis with renal and ureteral calculous obstruction (principal); I25.2 Old myocardial infarction; F17.210 Nicotine dependence, cigarettes, uncomplicated; Z88.1 Allergy status to other antibiotic agents; Z88.0 Allergy status to penicillin; Z88.6 Allergy status to analgesic agent; Z91.040 Latex allergy status; Z88.8 Allergy status to other drugs, medicaments and biological substances; Z95.5 Presence of coronary angioplasty implant and graft; Z85.07 Personal history of malignant neoplasm of pancreas
CPT/HCPCS: 36415; 74177; 80053; 81000; 83690; 85007; 85027

== ENCOUNTER → 2020-03-12 | Outpatient (CLI) | payer MEDICAID ==
[~2020-03-12] MED LIST changes: +HYDR-83 PO; +PHEN-640 PO; +SULF1TAB35 PO; +TMSL.4C PO
--- NOTE | 2020-03-12 15:29 | Diagnostic Imaging Report ---
INDICATION: History of right renal and ureteral calculi. COMPARISON: 03/10/2020. FINDINGS: Single supine radiographic view of the abdomen was obtained and again demonstrates 5 mm calculus projecting over the distal right ureter. There has been mild interval distal migration since previous exam. There is also 7 mm calculus projecting over the mid region of the right kidney. No unexpected radiopaque foreign bodies are seen. There is mild amount of gas within the small bowel on the left hemiabdomen. Small bowel loops are otherwise nondistended. There is no large collection of free intraperitoneal air. IMPRESSION: 1. Redemonstration of right renal and ureteral calculi. Dictated by: Dictated on workstation # [id number]
== END ==
LOC: RAD 14:12
PROVIDERS: ATTEND Urology
DX: N20.2 Calculus of kidney with calculus of ureter (principal)
CPT/HCPCS: 74018

== ENCOUNTER 2020-03-13 06:43 | Day surgery (SDC) | payer MEDICAID ==
[2020-03-13] VITALS (12 sets, daily range): BP systolic 105–139; BP diastolic 49–91
[~2020-03-13] VITALS: Ht 193 cm; Wt 103.6 kg
[~2020-03-13 06:43] MED LIST changes: -PHEN-640 PO; -SULF1TAB35 PO
--- OUTSIDE RECORDS SUMMARY | 2020-03-13 06:49 | XMS REPORT | Continuity of Care Document ---
Author Organization Unknown Address Unknown Phone Unavailable Allergies Active Description Code Type Severity Reaction Onset Reported/Identified Relationship to Patient Clinical Status Yes codeine [id number] Drug Allergy Mild N/A 07/17/2009 Yes TAPE TAPE Mild N/A 07/17/2009 Yes aspirin Drug Allergy N/A N/A 10/11/2009 Yes latex OA N/A N/A 10/11/2009 Yes ofloxacin Drug Allergy N/A N/A 10/11/2009 Yes Penicillins Drug Allergy N/A N/A 10/11/2009 Yes tape OA N/A N /A 10/11/2009 Yes Penicillins [id number] Drug Aller gy Unknown N/A 01/13/2018 Yes ofloxacin [id number] Drug Allergy Mild N/A 07/17/2019 Yes aspirin [id number] Drug Allergy Unknown N/A 07/17/2019 Yes latex [id number] Drug Allergy Unknown N/A 07/17/2019 Yes Penicillins [id number] Drug Aller gy Unknown Pt has received [...] Ot I25.1 0 ATHSCL HEART DISEASE OF [place] CORONARY 01/18/2018 DANDRE KOHLER MD Ot J44.9 [...] SENSATION 07/20/2019 LEEROY SCOTT MD Ot Z79.891 SUPPLY CHAIN TECH (CURRENT) USE OF OPIATE ANALGE 07/20/2019 TYLER [...] Ot F17.210 NICOTINE DEPENDENCE, CIGARETTES, UNCOMPL 02/19/2020 ROSALIND LAGUNA, RIGOBERTO Hunt Ot H53.2 DIPLOPIA 02/19/2020 ROSALIND LAGUNA, RIGOBERTO [...] Ot Z95.5 PRESENCE OF CORONARY ANGIOPLASTY IMPLANT 03/10/2020 DANIELLE DO, JESSICA Ot I25.2 OLD MYOCARDIAL INFARCTION 03/10/2020 DANIELLE DO, JESSICA Ot J44.9 CHRONIC OBSTRUCTIVE PULMONARY DISEASE, U 03/10/2020 DANIELLE DO, JESSIAC Ot M25.532 PAIN IN LEFT WRIST 03/10/2020 DANIELLE DO, JESSICA Ot S60.222A CONTUSION OF LEFT HAND, INITIAL ENCOUNTE 03/10/2020 DANIELLE DO, JESSICA Ot W22.8XXA STRIKING AGAINST OR STRUCK BY OTHER OBJE 03/10/2020 DANIELLE DO, JESSICA Ot Z85.07 PERSONAL HISTORY OF MALIGNANT NEOPLASM O 03/10/2020 DANIELLE DO, JESSICA Ot Z88.0 ALLERGY STATUS TO PENICILLIN 03/10/2020 DANIELLE DO, JESSICA Ot Z88.1 ALLERGY STATUS TO OTHER ANTIBIOTIC AGENT 03/10/2020 DANIELLE DO, JESSICA Ot Z88.6 ALLERGY STATUS TO ANALGESIC AGENT STATUS 03/10/2020 DANIELLE DO, JESSICA Ot Z88.8 ALLERGY STATUS TO OTH DRUG/MEDS/BIOL SUB 03/10/2020 DANIELLE DO, JESSICA Ot Z91.040 LATEX ALLERGY STATUS 03/10/2020 DANIELLE DO, JESSICA Ot Z95.5 PRESENCE OF CORONARY ANGIOPLASTY IMPLANT 03/12/2020 SUPERIOR DO, JESSICA Ot I25.2 OLD MYOCARDIAL INFARCTION 03/12/2020 DANIELLE DO, JESSICA Ot J44.9 CHRONIC OBSTRUCTIVE PULMONARY DISEASE, U 03/12/2020 DANIELLE DO, JESSICA Ot M25.532 PAIN IN LEFT WRIST 03/12/2020 DANIELLE DO, JESSICA Ot S60.222A CONTUSION OF LEFT HAND, INITIAL ENCOUNTE 03/12/2020 DANIELLE DO, JESSICA Ot W22.8XXA STRIKING AGAINST OR STRUCK BY OTHER OBJE 03/12/2020 DANIELLE DO, JESSICA Ot Z85.07 PERSONAL HISTORY OF MALIGNANT NEOPLASM O 03/12/2020 DANIELLE DO, JESSICA Ot Z88.0 ALLERGY STATUS TO PENICILLIN 03/12/2020 SUPERIOR DO, JESSICA Ot Z88.1 ALLERGY STATUS TO OTHER ANTIBIOTIC AGENT 03/12/2020 DANIELLE DO, JESSICA Ot Z88.6 ALLERGY STATUS TO ANALGESIC AGENT STATUS 03/12/2020 SUPERIOR DO, JESSICA Ot Z88.8 ALLERGY STATUS TO OTH DRUG/MEDS/BIOL SUB 03/12/2020 DANIELLE DO, JESSICA Ot Z91.040 LATEX ALLERGY STATUS 03/12/2020 DANIELLE DO, JESSICA Ot Z95.5 PRESENCE OF CORONARY ANGIOPLASTY IMPLANT 03/13/2020 PAIGE PENNINGTON MD, Ot F17.2 10 NICOTINE DEPENDENCE, CIGARETTES, UNCOMPL 03/13/2020 PAIGE PENNINGTON MD, Ot I25.2 OLD MYOCARDIAL INFARCTION 03/13/2020 PAIGE PENNINGTON MD, Ot N13.2 HYDRONEPHROSIS WITH RENAL AND URETERAL C 03/13/2020 PAIGE PENNINGTON MD, Ot R10.3 1 RIGHT LOWER QUADRANT PAIN 03/13/2020 PAIGE PENNINGTON MD, Ot Z85.0 7 PERSONAL HISTORY OF MALIGNANT NEOPLASM O 03/13/2020 PAIGE PENNINGTON MD, Ot Z88.0 ALLERGY STATUS TO PENICILLIN 03/13/2020 PAIGE PENNINGTON MD, Ot Z88.1 ALLERGY STATUS TO OTHER ANTIBIOTIC AGENT 03/13/2020 PAIGE PENNINGTON MD, Ot Z88.6 ALLERGY STATUS TO ANALGESIC AGENT STATUS 03/13/2020 PAIGE PENNINGTON MD, Ot Z88.8 ALLERGY STATUS TO OTH DRUG/MEDS/BIOL SUB 03/13/2020 PAIGE PENNINGTON MD, Ot Z91.0 40 LATEX ALLERGY STATUS 03/13/2020 PAIGE PENNINGTON MD, Ot Z95.5 PRESENCE OF CORONARY ANGIOPLASTY IMPLANT [...] mg/dL 0.1-1.0 Serum or plasma alkaline phosphatase leonidse surement (enzymatic activity/volume) 75 U/L 40-136 Serum or plasma aspartate aminotransfera se measurement (enzymatic activity/volume) 11 U/L 5-34 Serum or plasma alanine aminotransferase measurement (enzymatic activity/volume) 10 U/L 0-55 Serum or plasma protein measurement (mass/volume) 6.6 g/dL 6.4-8.2 Serum or plasma albumin measurement (mass/volume) 4.1 g/dL 3.2-4.5 CALCIUM CORRECTED 9.4 mg/dL 8.5-10.1 Bacterial blood culture - 07/17/19 14:25 QUANTITY OF GROWTH . [facility] Bacterial blood culture SEE COMMEN [facility] Blood lactic acid measurement (moles/vol ume) - 07/17/19 14:45 Blood lactic acid measurement (moles/volume) 1.65 mmol/L 0.50-2.00 Bacterial blood culture - 07/17/19 14:45 Bacterial blood culture [facility] Automated blood complete blood count (he mogram) [...] or plasma urea nitrogen/creatinine mass ratio 11 [facility] Serum or plasma creatinine measurement w ith [...] by westergren method 5 mm 0- 30 Blood CBC with ordered manual differenti al panel - 03/10/20 12:20 Blood leukocytes automated count (number/volume) 6.8 10*3/uL 4.3-11.0 Blood erythrocytes automated count (number/volume) 5.14 10*6/uL 4.35-5.85 Venous blood hemoglobin measurement (mass/volume) 16.1 g/dL 13.3-17.7 Blood hematocrit (volume fraction) 45 % 40-54 Automated erythrocyte mean corpuscular volume 87 [ foz_us] 80-99 Automated erythrocyte mean corpuscular h emoglobin (mass per erythrocyte) 31 pg 25-34 Automated erythrocyte mean corpuscular h emoglobin concentration measurement (mass/volume) 36 g/dL 32-36 Automated erythrocyte distribution width ratio 12. 4 % 10.0- 14.5 Automated blood platelet count (count/volume) 187 10*3/uL 130-400 Automated blood platelet mean volume measurement 9.4 [foz_us] 7.4-10.4 Automated blood neutrophils/100 leukocytes 56 % 42-75 Automated blood lymphocytes/100 leukocytes 35 % 12-44 Blood monocytes/100 leukocytes 3 % NRG Automated blood eosinophils/100 leukocytes 1 % 0-10 Automated blood basophils/100 leukocytes 0 % 0-10 Blood neutrophils automated count (number/volume) 3.8 10*3 1.8-7.8 Blood lymphocytes automated count (number/volume) 2.4 10*3 1.0-4.0 Blood monocytes automated count (number/volume) 0. 4 10*3 0.0-1.0 Automated eosinophil count 0.2 10*3/uL 0 .0-0.3 Automated blood basophil count (count/volume) 0.0 10*3/uL 0.0-0.1 Manual blood segmented neutrophils/100 leukocytes 58 % NRG Blood band neutrophils/100 leukocytes 0 % NRG Manual blood lymphocytes/100 leukocytes 38 % NRG Manual eosinophils/100 leukocytes in nose 0 % NRG Manual blood basophils/100 leukocytes 1 % NRG Blood erythrocyte morphology finding identification NORMAL [facility] Comprehensive metabolic panel - 03/10/20 12:20 Serum or plasma sodium measurement (moles/volume) 139 mmol/L 135-145 Serum or plasma potassium measurement (moles/volume) 3.9 mmol/L 3.6-5.0 Serum or plasma chloride measurement (moles/volume) 104 mmol/L 98-107 Carbon dioxide 23 mmol/L 21-32 Serum or plasma anion gap determination (moles/volume) 12 mmol/L 5-14 Serum or plasma urea nitrogen measurement (mass/volume ) 9 mg/dL 7-18 Serum or plasma creatinine measurement (mass/volume) 1.11 mg/dL 0.60-1.30 Serum or plasma urea nitrogen/creatinine mass ratio 8 NRG Serum or plasma creatinine measurement w ith calculation of estimated glomerular filtration rate > NRG Serum or plasma glucose measurement (mass/volume) 129 mg/dL 70-105 Serum or plasma calcium measurement (mass/volume) 9.2 mg/dL 8.5-10.1 Serum or plasma total bilirubin measurement (mass/volu me) 0.3 mg/dL 0.1-1.0 Serum or plasma alkaline phosphatase leonides surement (enzymatic activity/volume) 73 U/L 40-136 Serum or plasma aspartate aminotransfera se measurement (enzymatic activity/volume) 17 U/L 5-34 Serum or plasma alanine aminotransferase measurement (enzymatic activity/volume) 18 U/L 0-55 Serum or plasma protein measurement (mass/volume) 6.3 g/dL 6.4-8.2 Serum or plasma albumin measurement (mass/volume) 4.2 g/dL 3.2-4.5 CALCIUM CORRECTED 9.0 mg/dL 8.5-10.1 Lipase - 03/10/20 12:20 Lipase 28 U/L 8-78 Complete urinalysis with reflex to cultu re - 03/10/20 13:32 Urine color determination YELLOW NRG Urine clarity determination CLEAR NR G Urine pH measurement by test strip 6.0 5-9 Specific gravity of urine by test strip 1.025 1.016-1.022 Urine protein assay by test strip, semi-quantitative 1+ NEGATIVE Urine glucose detection by automated test strip NE GATIVE NEGATIVE Erythrocytes detection in urine sediment by light micr oscopy 3+ NEGATIVE Urine ketones detection by automated test strip NE GATIVE NEGATIVE Urine nitrite detection by test strip NEGATIVE NEGATIVE Urine total bilirubin detection by test strip NEGA TIVE NEGATIVE Urine urobilinogen measurement by automated test strip (mass/volume) 0.2 mg/dL < = 1.0 Urine leukocyte esterase detection by dipstick NEG ATIVE NEGATIVE Automated urine sediment erythrocyte cou nt by microscopy (number/high power field) > [HPF] NRG Automated urine sediment leukocyte count by microscopy (number/high power field) NONE NRG Bacteria detection in urine sediment by light microsco py NONE NRG Squamous epithelial cells detection in u rine sediment by light microscopy 0-2 NRG Crystals detection in urine sediment by light microsco py NONE NRG Casts detection in urine sediment by light microscopy NONE NRG Mucus detection in urine sediment by light microscopy SMALL NRG Complete urinalysis with reflex to culture NO NRG Encounters ACCT No. Visit Date/Time Discharge Status Pt. Type Provider Facility Loc./Unit Complaint [id number] 09/14/2013 16:06:00 09/14/2013 23:59: 59 CLS Outpatient LALITO LAGUNA, JOEL [id number] 03/10/2020 12:13:00 14:51:00 DIS Outpatient PAIGE PENNINGTON MD [facility] ER FS ABD PAIN [id number] 03/06/2020 18:17:00 19:00:00 DIS Outpatient JESSICA DANIELLE DO [facility] ER FS WRIST PAIN [id number] 02/14/2020 16:21:00 19:47:00 DIS Outpatient ROSALIND LAGUNA, RIGOBERTO Hunt [facility] ER FS EAR PROBLEMS/PA IN [id number] 07/17/2019 16:08:00 09:51:00 DIS Outpatient TYLER LAGUNA, LEEROY [place] [facility] 4TH LYMPHANGITIS CELLULIT IS RIGHT ARM [id number] 11/26/2018 22:02:00 019 22:46:00 DIS Emergency TERESO LOMELI DO [facility] ER FS FACIAL INJURY/HEADACHE [id number] 01/18/2018 07:08:00 018 12:00:00 DIS Outpatient DANDRE KOHLER MD [facility] SDC RIGHT SPERMATOCELE [id number] 01/13/2018 13:30:00 018 16:50:00 DIS Outpatient DANDRE KOHLER MD [facility] PREOP RIGHT SPERMATOCELECTOMY [id number] 01/12/2018 11:34:00 018 23:59:59 CLS Outpatient DANDRE KOHLER MD [facility] RAD SCROTAL MASS [id number] 12/27/2017 18:55:00 018 21:28:00 DIS Emergency JOBY GALLEGOS [facility] ER POST SHOULDER SURGERY/ FALL/R SHOULDER INJ [id number] 11/17/2015 15:34:00 016 17:41:00 DIS Emergency SHOLA LAGUNA, JONI Burnham [facility] ER TESTICLE PAIN [id number] 03/13/2020 06:43:[address] Outpatient DANDRE KOHLER MD [facility] RIGHT RENAL STONE [id number] 03/12/2020 14:12:[address] Outpatient DANDRE KOHLER MD [facility] RAD HX OF STONES [id number] 06/08/2012 11:18:00 Document Registration [id number] 05/16/2014 08:52:24 05/16 08:52:24 DIS Outpatient [id number] 02/14/2020 15:40:00 02/14/2020 23:59:5 9 [facility] Outpatient IVONNE LAGUNA, ALEX [facility] [place] [facility]
--- NOTE | 2020-03-13 06:53 | Progress Note-Pre Operative ---
Pre-Operative Progress Note H&P Reviewed The H&P was reviewed, patient examined and no changes noted. Date Seen by Provider: Mar 13, 2020 Time Seen by Provider: 06:52 Date H&P Reviewed: Mar 13, 2020 Time H&P Reviewed: 06:52 Pre-Operative Diagnosis: RT RENAL STONE DANDRE KOHLER MD Mar 13, 2020 06:53
[2020-03-13] MEDS ORDERED: cefTRIAXone FOR IV USE 1,000 MG in WATER (STERILE) FOR INJECTION 10 ML IV ONE (07:30)
--- NOTE | 2020-03-13 07:44 | Diagnostic Imaging Report ---
INDICATION: Nephrolithiasis Single view of the abdomen is obtained with comparison made study of one day earlier. 0.6 cm calculus in the region of the right kidney is unchanged. There is a similar 0.3 cm calculus projecting over lower pole left kidney. Linear calcification measuring 0.5 cm in size projects over the distal right ureter. Overall these findings have not significantly changed. IMPRESSION: Findings are compatible with stable bilateral nephrolithiasis and possible 0.5 cm distal right ureteral catheter. Dictated by: Dictated on workstation # [id number]
[2020-03-13] MEDS ORDERED: MIDAZOLAM 2 MG/2 ML (VERSED) VIAL ONE ×2 (08:03→09:20)
[2020-03-13] MEDS: LACTATED RINGERS 1,000 ML IV PRN ×2 (08:29→10:57)
[2020-03-13] MEDS ORDERED: MIDAZOLAM 2 MG/2 ML (VERSED) VIAL IVP ONE (08:30)
[2020-03-13] MEDS ORDERED: LIDOCAINE PF 2% 5 ML (XYLOCAINE) VIAL ONE (09:20)
[2020-03-13] MEDS ORDERED: ONDANSETRON 4 MG/2 ML (SDV) Z0FRAN ONE (09:20)
[2020-03-13] MEDS ORDERED: proPOfol 200 MG/20 ML (DIPRIVAN) VIAL IV ONE ×2 (09:20→09:51)
[2020-03-13] MEDS ORDERED: fentaNYL INJECTION 100 MCG/2 ML AMP ONE (09:20)
[2020-03-13] MEDS ORDERED: SEVOFLURANE (ULTANE) 15 ML INHAL SOLN ONE ×4 (09:20→11:07)
--- NOTE | 2020-03-13 10:30 | Progress Note-Post Operative ---
Post-Operative Progess Note Surgeon (s)/Keying Machine Operator (s) Surgeon DANDRE KOHLER MD Keying Machine Operator: NONE Pre-Operative Diagnosis RT DISTAL URETERAL AND RENAL STONE Post-Operative Diagnosis SAME Procedure & Operative Findings Date of Procedure 03/13/20 Procedure Performed/Findings RT URETEROSCOPY WITH STONE LITHOTRIPSY AND RT ESWL Anesthesia Type GENERAL Estimated Blood Loss Estimated blood loss (mL): NEGLIGIBLE Specimens/Packing Specimens Removed NONE Packing: NONE DANDRE KOHLER MD Mar 13, 2020 10:30
--- NOTE | 2020-03-13 10:33 | Discharge Inst-Urology ---
Discharge Inst-Urology Reconcile Patient Problems Problems Reviewed?: Yes Final Diagnosis RT URETERAL AND RENAL STONES Patient Instructions/Follow Up Plan/Assessment/Instructions Please make appointment to been seen in office Sunday 03/25, KUB prior to it KUB on way home Post ESWL instructions to patient Increase oral fluids for 48 hours and then as needed. Diet and Activity as tolerated. If questions or concerns contact your physician Or seek help at emergency department. DANDRE KOHLER MD Mar 13, 2020 10:33
[2020-03-13] MEDS ORDERED: morphine INJ 10 MG/ML 1ML (SYR OR VIAL) IVP ONE (11:30)
[2020-03-13] MEDS ORDERED: ONDANSETRON 4 MG/2 ML (SDV) Z0FRAN IVP PRN (11:30)
--- NOTE | 2020-03-13 12:05 | NUR ---
TO AMB SURG FROM PAR PER CART, URINAL IN PLACE. RATES RIGHT LOWER ABD DISCOMFORT 2. PO FLUIDS PROVIDED.
--- NOTE | 2020-03-13 12:40 | NUR ---
VOIDED 200 CC CLEAR, LIGHT CHANEL COLORED URINE. NO STONE PARTICLES OBTAINED. TAKING PO FLUIDS WITHOUT PROBLEM.
--- NOTE | 2020-03-13 12:40 | NUR ---
VOIDED 400 CC CLEAR, MEDIUM CHANEL COLORED URINE, STRAINED, NO STONE PARTICLES OBTAINED.
--- NOTE | 2020-03-13 12:52 | Anesthesia-General Post-Op ---
General Patient Condition Mental Status/LOC: Same as Preop Cardiovascular: Satisfactory Nausea/Vomiting: Absent Respiratory: Satisfactory Pain: Controlled Complications: Absent Post Op Complications Complications None Follow Up Care/Instructions Patient Instructions None needed. Anesthesia/Patient Condition Patient Condition Patient is doing well, no complaints, stable vital signs, no apparent adverse anesthesia problems. No complications reported per nursing. HANS WELSH CRNA Mar 13, 2020 12:52
[2020-03-13] MEDS ORDERED: PHEN-640 PO (13:07)
[2020-03-13] MEDS ORDERED: SULF1TAB35 PO (13:08)
--- NOTE | 2020-03-13 13:08 | Diagnostic Imaging Report ---
Clinical INDICATION: Post ESWL. EXAM: X-ray of the abdomen 2 supine views. COMPARISON: X-ray of the abdomen dated 03/13/2020. FINDINGS: Previously seen calcification overlying the right renal shadow is not seen on this exam likely resolved. There is air-filled bowel gas which obscures the left renal shadow region limiting evaluation. Previous small stones involving left kidney can't be evaluated on this exam. There are no calcifications overlying the expected region of the renal shadows, ureters, or bladder. Surgical clips are seen overlying the right upper quadrant which could be related to cholecystectomy changes. Nonspecific air distention of small bowel overlying the left abdomen measuring up to 4.8 cm. There is air seen within the colon. There is no intra-abdominal free air. There are degenerative spurs involving the spine. IMPRESSION: 1: The previously seen stone overlying the right kidney is not visualized on this exam and likely resolved. If there is continued concern, CT scan would better evaluate. 2: There is air-filled bowel gas which obscures the left renal shadow region limiting evaluation. Previous small stones involving left kidney cannot be evaluated on this exam. 3: There are no other stones or calcifications overlying the expected regions of the kidneys, ureters, or bladder. 4: Nonspecific bowel gas pattern with air distended loops of small bowel overlying the left abdomen. Dictated by: Dictated on workstation # [id number]
--- NOTE | 2020-03-13 13:30 | NUR ---
CONTACTED DR KOHLER BY PHONE. POST OP PRESCRIPTION WRITTEN FOR CIPRO. PT IS ALLERGIC TO [place]. INSTRUCTED BY DR KOHLER TO DC CIPRO POST OP AND CALL TO PT'S PHARMACY [facility], #14, SIG:ONE TAB PO BID. NO REFILLS
--- NOTE | 2020-03-13 13:45 | NUR ---
VOIDED ADDITIONAL 450 CC CLEAR, MEDIUM CHANEL COLORED URINE WITHOUT PROBLEM. NO STONE PARTICLES OBTAINED. PT STATES HE IS READY FOR DISMISSAL.
--- NOTE | 2020-03-13 15:05 | OPERATIVE REPORT ---
DATE OF SERVICE: 03/13/2020 PREOPERATIVE DIAGNOSES: 1. Right distal ureteral stone. 2. Right renal stone. POSTOPERATIVE DIAGNOSES: 1. Right distal ureteral stone. 2. Right renal stone. OPERATIONS PERFORMED: Right ureteroscopy with stone lithotripsy and right ESWL. SURGEON: Chris Kohler MD. ANESTHESIA: General. COMPLICATIONS: None. DESCRIPTION OF PROCEDURE: Under satisfactory general anesthesia and the patient in lithotomy position on the ESWL table, the genitalia were prepped and draped in the usual sterile fashion. Cystoscope was introduced under vision. The anterior urethra was normal. The prostate was small, nonobstructing. Bladder neck was opened. Bladder was essentially normal except for a sluggish efflux on the right side. Using the foroblique lens, I dilated the right ureteral orifice intramural portion, felt this engaged the stone during the process and inserted a 6.9 Divehi semi-rigid ureteroscope, visualized the stone that was floating. I went ahead and performed lithotripsy on it and chased it all the way up to the kidney and small fragments went back into the kidney to join close to the ones he has in the kidney. I went back down with the ureteroscope to confirm no more fragments. I removed the ureteroscope, inserted the cystoscope to empty the bladder, moved the patient to the ESWL bed and suite, right renal calcifications were localized and shocks were delivered at a kV of 6 until we saw no more fragments. A total of 3000 shocks were given. The patient received 30 mg of Toradol and 40 mg of Lasix at the end of the procedure. He tolerated the procedure and anesthesia well and was sent to the recovery room in stable condition. Job ID: [id number] DocumentID: [id number] Dictated Date: 03/13/2020 10:46:18 Oil Changer Date: 03/13/2020 15:05:12 Dictated By: CHRIS KOHLER MD
== END 2020-03-13 13:52 | disposition home or self-care (01) ==
LOC: SDC 06:43
PROVIDERS: ATTEND Urology
DX: N20.2 Calculus of kidney with calculus of ureter (principal); I25.10 Atherosclerotic heart disease of native coronary artery without angina pectoris; J45.909 Unspecified asthma, uncomplicated; K21.9 Gastro-esophageal reflux disease without esophagitis; F20.9 Schizophrenia, unspecified; G40.909 Epilepsy, unspecified, not intractable, without status epilepticus; Z91.048 Other nonmedicinal substance allergy status; F41.9 Anxiety disorder, unspecified; F17.210 Nicotine dependence, cigarettes, uncomplicated; Z79.899 Other long term (current) drug therapy; Z88.5 Allergy status to narcotic agent; Z88.8 Allergy status to other drugs, medicaments and biological substances; Z91.040 Latex allergy status; Z88.0 Allergy status to penicillin; Z20.828 Contact with and (suspected) exposure to other viral communicable diseases
CPT/HCPCS: 50590; 74018; 76000; 87081; U0002; 87635

== ENCOUNTER → 2020-03-25 | Outpatient (CLI) | payer MEDICAID ==
[~2020-03-25] MED LIST changes: +HYDR-3812 PO; -HYDR-83 PO; +PHEN-640 PO; +SULF1TAB35 PO
--- NOTE | 2020-03-25 18:10 | Diagnostic Imaging Report ---
INDICATION: History of renal calculi. COMPARISON: 03/13/2020. FINDINGS: Two supine radiographic views of the abdomen were obtained. 7 and 4 mm extraosseous calcifications are noted projecting over the central portion of the right renal shadow suggestive of nephrolithiasis. No other unexpected extraosseous calcifications or radiopaque foreign bodies are seen. Left renal shadow is heavily obscured by bowel gas. Small bowel loops are nondistended. There is no large collection of free intraperitoneal air. IMPRESSION: 1. Right-sided nephrolithiasis. Dictated by: Dictated on workstation # [id number]
== END ==
LOC: RAD 14:21
PROVIDERS: ATTEND Urology
DX: N20.0 Calculus of kidney (principal)
CPT/HCPCS: 74018

== ENCOUNTER 2020-10-29 13:08 | Emergency (ER) | payer MEDICAID ==
[~2020-10-29] VITALS: Ht 167.4 cm; Wt 108.1 kg
[~2020-10-29 13:08] MED LIST changes: -CLIN300C11 PO; +CLIN300C12 PO; -HYDR-3812 PO
[2020-10-29] MEDS: NITROGLYCERIN 0.4 MG SL TABS BTL 25'S SL PRN ×2 (13:26→13:42)
[2020-10-29 13:27] LABS: BASOPHILS % (AUTO) 0 % (0-10); EOSINOPHILS # (AUTO) 0.1 10^3/uL (0.0-0.3); EOSINOPHILS % (AUTO) 1 % (0-10); HEMATOCRIT 48 % (40-54); HEMOGLOBIN 16.8 g/dL (13.3-17.7); LYMPHOCYTES # (AUTO) 1.8 10^3/uL (1.0-4.0); LYMPHOCYTES % (AUTO) 26 % (12-44); MEAN CORPUSCULAR HEMOGLOBIN 31 pg (25-34); MEAN CORPUSCULAR HGB CONC 35 g/dL (32-36); MEAN CORPUSCULAR VOLUME 89 fL (80-99); MEAN PLATELET VOLUME 9.6 fL (9.0-12.2); MONOCYTES # (AUTO) 0.3 10^3/uL (0.0-1.0); MONOCYTES % (AUTO) 4 % (0-12); NEUTROPHILS # (AUTO) 4.7 10^3/uL (1.8-7.8); NEUTROPHILS % (AUTO) 69 % (42-75); PLATELET COUNT 184 10^3/uL (130-400); WHITE BLOOD COUNT 6.9 10^3/uL (4.3-11.0)
[2020-10-29] MEDS ORDERED: ASPIRIN 81 MG CHEW (CHILDREN'S ASA) PO ONE (13:30)
[2020-10-29 13:36] LABS: ALBUMIN 4.7 GM/DL (3.2-4.5)
[2020-10-29 13:37] LABS: CHLORIDE 103 MMOL/L (98-107); POTASSIUM 3.9 MMOL/L (3.6-5.0); SODIUM 138 MMOL/L (135-145)
[2020-10-29 13:38] LABS: CALCIUM 9.5 MG/DL (8.5-10.1)
[2020-10-29 13:39] LABS: GLUCOSE 128 MG/DL (70-105); TOTAL PROTEIN 7.6 GM/DL (6.4-8.2)
[2020-10-29 13:40] LABS: CARBON DIOXIDE 24 MMOL/L (21-32)
[2020-10-29 13:41] LABS: BILIRUBIN,TOTAL 0.7 MG/DL (0.1-1.0)
[2020-10-29 13:42] LABS: ALKALINE PHOSPHATASE 67 U/L (40-136); CREATININE SERUM 1.25 MG/DL (0.60-1.30); GFR ESTIMATED > 60
[2020-10-29 13:43] LABS: BUN/CREATININE RATIO 9
[2020-10-29 13:44] LABS: PROTHROMBIN TIME PATIENT 13.3 SEC (12.2-14.7)
[2020-10-29 13:45] LABS: ALANINE AMINOTRANSFERASE 22 U/L (0-55); MAGNESIUM 2.1 MG/DL (1.6-2.4)
--- NOTE | 2020-10-29 13:48 | Diagnostic Imaging Report ---
INDICATION: Chest pain. TECHNIQUE/COMPARISON: A frontal chest was obtained at 1:33 PM and compared to 07/17/2019. FINDINGS: The heart and mediastinal silhouette are normal in appearance. The lungs are clear. There is no pneumothorax or pleural fluid. IMPRESSION: No acute process in the chest. Dictated by: Dictated on workstation # [id number]
[2020-10-29] MEDS ORDERED: ENOXAPARIN 100 MG/1 ML (LOVENOX) SYR SC ONE (14:45)
--- NOTE | 2020-10-29 14:47 | ED Chest Pain ---
General Chief Complaint: Chest Pain Stated Complaint: CHEST/LEFT ARM PAIN WEAKNESS Nursing Triage Note: TO ED PER W/C REPORTS WAS EATING AT [employer] WHEN HE BECAME DIZZY AND CHEST PAIN. ON ADMIT DIZZY WITH CHEST PAIN Nursing Sepsis Screen: No Definite Risk Source: patient Exam Limitations: no limitations History of Present Illness Date Seen by Provider: Oct 29, 2020 Time Seen by Provider: 13:11 Initial Comments This 50-year-old gentleman presents to the emergency room shortly after developing severe intense left mid chest pressure that radiated up to his left neck and down his left arm. He was eating a sandwich at a local restaurant when symptoms started. He became very lightheaded and diaphoretic. Pain was dissipating by the time of his arrival but still present. He has not experie nced any pain like this in the past. He denies any history of cardiac disease. He reports a stress test was performed at this facility sometime last year. However, we can find no record of this in the chart. Patient is a smoker and his mother has history of stroke. Allergies and Home Medications Allergies Coded Allergies: ofloxacin (Verified Allergy, Mild, 07/17/19) acetaminophen (Verified Allergy, Unknown, Hives, 03/13/20) Penicillins (Verified Adverse Reaction, Unknown, Pt has received Ceftriaxone in the past, 07/17/19) aspirin (Verified Adverse Reaction, Unknown, 07/17/19) latex (Verified Adverse Reaction, Unknown, 07/17/19) Uncoded Allergies: TAPE (Allergy, Mild, 07/17/09) Home Medications Hydrocodone/Acetaminophen 1 Each Tablet, 1 EACH PO Q6H PRN for PAIN-BREAKTHROUGH Prescribed by: PAIGE PENNINGTON on 03/10/20 1444 Melatonin 5 Mg Capsule, 5-10 MG PO HS PRN for SLEEP, (Reported) Phenazopyridine HCl 200 Mg Tablet, 1 TAB PO TID Prescribed by: SANDHYA WHEAT on 03/13/20 1307 Sulfamethoxazole/Trimethoprim 1 Each Tablet, 1 TAB PO BID Prescribed by: SANDHYA WHEAT on 03/13/20 1308 Tamsulosin HCl 0.4 Mg Cap, 0.4 MG PO DAILY Prescribed by: PAIGE PENNINGTON on 03/10/20 1444 Patient Home Medication List Home Medication List Reviewed: Yes Review of Systems Review of Systems Constitutional: no symptoms reported EENTM: No Symptoms Reported Respiratory: No Symptoms Reported Cardiovascular: See HPI Gastrointestinal: No Symptoms Reported Genitourinary: No Symptoms Reported Musculoskeletal: no symptoms reported Skin: see HPI Psychiatric/Neurological: No Symptoms Reported Endocrine: No Symptoms Reported Hematologic/Lymphatic: No Symptoms Reported Past Ktiqhtw-Dcycbe-Vjvizh Hx Past Med/Social Hx: Reviewed Nursing Past Med/Soc Hx Patient Social History Alcohol Use: Denies Use Number of Drinks Today: AA Alcohol Beverage of Choice: Beer Smoking Status: Never a Smoker Type Used: Cigarettes 2nd Hand Smoke Exposure: No Recent Infectious Disease Expo: No Recent Hopitalizations: No Immunizations Up To Date PED Vaccines UTD: Yes Seasonal Allergies Seasonal Allergies: No Past Medical History Surgeries: Yes (hernia repair, left testicle injury, brain surgery) Coronary Stent, Orthopedic, Thyroidectomy Respiratory: Yes COPD Cardiac: Yes (STENT) Heart Attack Neurological: Yes Seizure Disorder Reproductive Disorders: No Sexually Transmitted Disease: No HIV/AIDS: No Genitourinary: Yes Kidney Stones Gastrointestinal: No Musculoskeletal: No Endocrine: No HEENT: Yes Loss of Vision: Bilateral Cancer: Yes Pancreatic Psychosocial: No Integumentary: No Blood Disorders: No Adverse Reaction/Blood Tranf: No (N/A) Family Medical History Stroke Physical Exam Vital Signs Vital Signs - First Documented 10/29/20 13:12 Temp 35.7 Pulse 83 Resp 18 B/P (MAP) 163/95 (117) Pulse Ox 96 O2 Delivery Room Air Capillary Refill : Less Than 3 Seconds Height, Weight, BMI Height: 6'4.00" Weight: 225lbs. 0.0oz. 102.930531ux; 38.00 BMI Method:Stated General Appearance: Mild Distress HEENT: PERRL/EOMI, Normal ENT Inspection Neck: Normal Inspection; No JVD Respiratory: Chest Non Tender, Lungs Clear, Normal Breath Sounds, No Accessory Muscle Use, No Respiratory Distress Cardiovascular: Regular Rate, Rhythm, No Edema, No Murmur Gastrointestinal: Normal Bowel Sounds, Non Tender, Soft Extremity: Normal Inspection, No Calf Tenderness, No Pedal Edema Neurologic/Psychiatric: Alert, Oriented x3, No Motor/Sensory Deficits, Normal Mood/Affect, cooler supervisor II-XII Norm as Tested Skin: Normal Color, Warm/Dry Progress/Results/Core Measures Results/Orders Lab Results Laboratory Tests Test 10/29/20 13:18 Range/Units White Blood Count 6.9 4.3-11.0 10^3/uL Red Blood Count 5.41 4.30-5.52 10^6/uL Hemoglobin 16.8 13.3-17.7 g/dL Hematocrit 48 40-54 % Mean Corpuscular Volume 89 80-99 fL Mean Corpuscular Hemoglobin 31 25-34 pg Mean Corpuscular Hemoglobin Concent 35 32-36 g/dL Red Cell Distribution Width 12.4 10.0-14.5 % Platelet Count 184 130-400 10^3/uL Mean Platelet Volume 9.6 9.0-12.2 fL Immature Granulocyte % (Auto) 0 % Neutrophils (%) (Auto) 69 42-75 % Lymphocytes (%) (Auto) 26 12-44 % Monocytes (%) (Auto) 4 0-12 % Eosinophils (%) (Auto) 1 0-10 % Basophils (%) (Auto) 0 0-10 % Neutrophils # (Auto) 4.7 1.8-7.8 10^3/uL Lymphocytes # (Auto) 1.8 1.0-4.0 10^3/uL Monocytes # (Auto) 0.3 0.0-1.0 10^3/uL Eosinophils # (Auto) 0.1 0.0-0.3 10^3/uL Basophils # (Auto) 0.0 0.0-0.1 10^3/uL Immature Granulocyte # (Auto) 0.0 0.0-0.1 10^3/uL Prothrombin Time 13.3 12.2-14.7 SEC INR Comment 1.0 0.8-1.4 Activated Partial Thromboplast Time 32 24-35 SEC Sodium Level 138 135-145 MMOL/L Potassium Level 3.9 3.6-5.0 MMOL/L Chloride Level 103 98-107 MMOL/L Carbon Dioxide Level 24 21-32 MMOL/L Anion Gap 11 5-14 MMOL/L Blood Urea Nitrogen 11 7-18 MG/DL Creatinine 1.25 0.60-1.30 MG/DL Estimat Glomerular Filtration Rate > 60 BUN/Creatinine Ratio 9 Glucose Level 128 H 70-105 MG/DL Calcium Level 9.5 8.5-10.1 MG/DL Corrected Calcium 8.5-10.1 MG/DL Magnesium Level 2.1 1.6-2.4 MG/DL Total Bilirubin 0.7 0.1-1.0 MG/DL Aspartate Amino Transf (AST/SGOT) 19 5-34 U/L Alanine Aminotransferase (ALT/SGPT) 22 0-55 U/L Alkaline Phosphatase 67 40-136 U/L Myoglobin 74.8 10.0-92.0 NG/ML Troponin I < 0.028 <0.028 NG/ML Total Protein 7.6 6.4-8.2 GM/DL Albumin 4.7 H 3.2-4.5 GM/DL My Orders Orders - RIGOBERTO BOYER MD Cbc With Automated Diff (10/29/20 13:20) Magnesium (10/29/20 13:20) Chest 1 View, Ap/Pa Only (10/29/20 13:20) Ekg Tracing (10/29/20 13:20) Comprehensive Metabolic Panel (10/29/20 13:20) Myoglobin Serum (10/29/20 13:20) Protime With Inr (10/29/20 13:20) Partial Thromboplastin Time (10/29/20 13:20) O2 (10/29/20 13:20) Monitor-Rhythm Ecg Trace Only (10/29/20 13:20) Ed Iv/Invasive Line Start (10/29/20 13:20) Nitroglycerin 0.4 Mg Btl 25's (Nitrostat (10/29/20 13:30) Aspirin Chewable Tablet (Baby Aspirin Ch (10/29/20 13:30) Troponin I (10/29/20 13:18) Enoxaparin Injection (Lovenox Injection) (10/29/20 14:45) Medications Given in ED Vital Signs/I&O 10/29/20 13:12 Temp 35.7 Pulse 83 Resp 18 B/P (MAP) 163/95 (117) Pulse Ox 96 O2 Delivery Room Air Blood Pressure Mean: 117 Progress Progress Note : Progress Note Work-up was essentially unremarkable. We initially had arranged for admission. However, patient expressed a very strong desire to return home as his symptoms completely resolved with nitroglycerin. Dr. Day presented to the emergency room to evaluate the patient. Patient was offered and advised admission with stress testing in the morning. Patient opted for the outpatient option of follow-up in the clinic and scheduling a stress test as an outpatient citing need to care for his dog at home. He had no recurrence of symptoms. A repeat troponin was negative. Patient was given strict instructions to return to the emergency room if he had recurrence of chest pain. A medical student interviewed the patient as well. Patient mentions something to her about concern for pancreatic cancer. He is seeking a second opinion [id number] and did not want to discuss it any further. Initial ECG Impression Date: Oct 29, 2020 Initial ECG Impression Time: 13:11 Initial ECG Rate: 85 Initial ECG Rhythm: Normal Sinus Comment Sinus rhythm with no ST elevation or depression. Possible RVH. No significant abnormal intervals. Diagnostic Imaging Diagonstic Imaging: Xray Plain Films/CT/US/NM/MRI: chest Comments NAME: A[facility] REC#: [id number] PT STATUS: REG ER : 1970 PHYSICIAN: RIGOBERTO BOYER MD ADMIT DATE: 10/29/20/ER Draft Date of Exam:10/29/20 CHEST 1 VIEW, AP/PA ONLY INDICATION: Chest pain. TECHNIQUE/COMPARISON: A frontal chest was obtained at 1:33 PM and compared to 07/17/2019. FINDINGS: The heart and mediastinal silhouette are normal in appearance. The lungs are clear. There is no pneumothorax or pleural fluid. IMPRESSION: No acute process in the chest. Dictated on workstation # [id number] Dict: 10/29/20 1345 Trans: 10/29/20 1348 [id number] Interpreted by: LUCAS GALLEGOS MD Departure Communication (Admissions) Time/Spoke to Admitting Phy: 14:40 Dr. Garner Time/Spoke to Consulting Phy: 14:35 Dr. Day Impression Primary Impression: Chest pain Qualified Codes: R07.9 - Chest pain, unspecified Additional Impression: Lightheadedness Disposition: 01 HOME, SELF-CARE Condition: Improved Admissions Decision to Admit Reason: Admit from ER (General) (Admission was arranged and patient then declined admission) Decision to Admit/Date: Oct 29, 2020 Time/Decision to Admit Time: 14:35 Departure-Patient Inst. Decision time for Depature: 16:57 Referrals: CONNIE DAY MD NO,LOCAL PHYSICIAN (PCP) Primary Care Physician Patient Instructions: Chest Pain, Chest Pain, Adult ED Add. Discharge Instructions: Take aspirin 81 mg daily. Return to the emergency room if you have worsening symptoms or recurrent chest pain. Follow-up with Dr. Day is soon as possible. His contact information is below. Call with questions or concerns. Work toward quitting smoking as rapidly as possible. All discharge instructions reviewed with patient and/or family. Voiced understanding. Copy Copies To 1: CONNIE DAY MD, JOSHUA T MD Oct 29, 2020 14:47
--- NOTE | 2020-10-29 16:08 | Consultation-Cardiology ---
HPI-Cardiology Cardiology Consultation Date of Consultation 10/29/20 Date of Admission Time Seen by Provider: 16:04 Indication: chest pain HPI 50 years old gentleman with no significant cardiac history, there is questionable history of old myocardial infarction in the remote past, did not require any stenting, no recent cardiac workup. Start to have left-sided chest pain radiating to the left arm, came into the emergency room and reported full relief with sublingual nitroglycerin. No further episodes of chest pain, patient is very anxious to go home. He has to take care of his dog. Cardiac enzymes and EKG were normal. Denied any similar episode of chest pain, reporting recurrent heartburn as an outpatient Home Medications & Allergies Allergies: Coded Allergies: ofloxacin (Verified Allergy, Mild, 07/17/19) acetaminophen (Verified Allergy, Unknown, Hives, 03/13/20) Penicillins (Verified Adverse Reaction, Unknown, Pt has received Ceftriaxone in the past, 07/17/19) aspirin (Verified Adverse Reaction, Unknown, 07/17/19) latex (Verified Adverse Reaction, Unknown, 07/17/19) Uncoded Allergies: TAPE (Allergy, Mild, 07/17/09) Home Medication List Reviewed: Yes DEK-Pcqdwv-Eunfhr Hx Patient Social History Marital Status: single Recreational Drug Use: Yes (CLEAN FROM ETOH 20 YRS) Smoking Status: Never a Smoker Type Used: Cigarettes 2nd Hand Smoke Exposure: No Recent Hopitalizations: No Past Medical History Discussed below Family Medical History Significant Family History: Stroke Family Medical Hx Noncontributory Review of Systems-General Review of Systems Constitutional: no symptoms reported, see HPI EENTM: see HPI, no symptoms reported Respiratory: see HPI; No cough, No dyspnea on exertion, No hemoptysis, No ort hopnea, No phlegm, No short of breath, No stridor, No wheezing, No other Cardiovascular: see HPI, chest pain; No edema, No Hx of Intervention, No palpitations, No syncope, No vascular heart diseas, No other Gastrointestinal: no symptoms reported, see HPI Genitourinary: no symptoms reported, see HPI Musculoskeletal: no symptoms reported, see HPI Skin: no symptoms reported, see HPI Psychiatric/Neurological: No Symptoms Reported, See HPI Reviewed Test Results Reviewed Test Results Lab Laboratory Tests Test 10/29/20 13:18 Range/Units White Blood Count 6.9 4.3-11.0 10^3/uL Red Blood Count 5.41 4.30-5.52 10^6/uL Hemoglobin 16.8 13.3-17.7 g/dL Hematocrit 48 40-54 % Mean Corpuscular Volume 89 80-99 fL Mean Corpuscular Hemoglobin 31 25-34 pg Mean Corpuscular Hemoglobin Concent 35 32-36 g/dL Red Cell Distribution Width 12.4 10.0-14.5 % Platelet Count 184 130-400 10^3/uL Mean Platelet Volume 9.6 9.0-12.2 fL Immature Granulocyte % (Auto) 0 % Neutrophils (%) (Auto) 69 42-75 % Lymphocytes (%) (Auto) 26 12-44 % Monocytes (%) (Auto) 4 0-12 % Eosinophils (%) (Auto) 1 0-10 % Basophils (%) (Auto) 0 0-10 % Neutrophils # (Auto) 4.7 1.8-7.8 10^3/uL Lymphocytes # (Auto) 1.8 1.0-4.0 10^3/uL Monocytes # (Auto) 0.3 0.0-1.0 10^3/uL Eosinophils # (Auto) 0.1 0.0-0.3 10^3/uL Basophils # (Auto) 0.0 0.0-0.1 10^3/uL Immature Granulocyte # (Auto) 0.0 0.0-0.1 10^3/uL Prothrombin Time 13.3 12.2-14.7 SEC INR Comment 1.0 0.8-1.4 Activated Partial Thromboplast Time 32 24-35 SEC Sodium Level 138 135-145 MMOL/L Potassium Level 3.9 3.6-5.0 MMOL/L Chloride Level 103 98-107 MMOL/L Carbon Dioxide Level 24 21-32 MMOL/L Anion Gap 11 5-14 MMOL/L Blood Urea Nitrogen 11 7-18 MG/DL Creatinine 1.25 0.60-1.30 MG/DL Estimat Glomerular Filtration Rate > 60 BUN/Creatinine Ratio 9 Glucose Level 128 H 70-105 MG/DL Calcium Level 9.5 8.5-10.1 MG/DL Corrected Calcium 8.5-10.1 MG/DL Magnesium Level 2.1 1.6-2.4 MG/DL Total Bilirubin 0.7 0.1-1.0 MG/DL Aspartate Amino Transf (AST/SGOT) 19 5-34 U/L Alanine Aminotransferase (ALT/SGPT) 22 0-55 U/L Alkaline Phosphatase 67 40-136 U/L Myoglobin 74.8 10.0-92.0 NG/ML Troponin I < 0.028 <0.028 NG/ML Total Protein 7.6 6.4-8.2 GM/DL Albumin 4.7 H 3.2-4.5 GM/DL Physical Exam Physical Exam Vital Signs Vital Signs - First Documented 10/29/20 13:12 Temp 35.7 Pulse 83 Resp 18 B/P (MAP) 163/95 (117) Pulse Ox 96 O2 Delivery Room Air Capillary Refill : Less Than 3 Seconds Height, Weight, BMI Height: 6'4.00" Weight: 225lbs. 0.0oz. 102.683739uu; 38.00 BMI Method:Stated General Appearance: No Apparent Distress, WD/WN Eyes: Bilateral Eye Normal Inspection, Bilateral Eye PERRL, Bilateral Eye EOMI HEENT: PERRL/EOMI, TMs Normal, Normal ENT Inspection, Pharynx Normal, Moist Mucous Membranes Neck: Full Range of Motion, Normal Inspection, Non Tender, Supple, Carotid Bruit Respiratory: Chest Non Tender, Normal Breath Sounds, No Accessory Muscle Use, No Respiratory Distress Cardiovascular: Regular Rate, Rhythm, No Edema, No Gallop, No JVD, No Murmur, Normal Peripheral Pulses Gastrointestinal: Normal Bowel Sounds, No Organomegaly, No Pulsatile Mass, Non Tender, Soft Back: Normal Inspection, No CVA Tenderness, No Vertebral Tenderness Extremity: Normal Capillary Refill, Normal Inspection, Normal Range of Motion, Non Tender, No Calf Tenderness, No Pedal Edema Neurologic/Psychiatric: Alert, Oriented x3, No Motor/Sensory Deficits, Normal Mood/Affect Skin: Normal Color, Warm/Dry Lymphatic: No Adenopathy A/P-Cardiology Admission Diagnosis Chest pain Coronary artery disease Hypertension Tobaccoism Assessment/Plan Chest pain nonspecific etiology, resembling angina, responded to nitroglycerin, no further episodes of chest pain, EKG and cardiac enzymes were normal. Discussed with the patient to medical recommended staying in the hospital and having stress test in the morning. Patient is anxious to go home, need to take care of his dog. We will do rule out 2 hours and arrange for a stress test as an outpatient and follow-up as an outpatient History of coronary artery disease, had 2 stents placed over 10 years ago at [facility] after having a myocardial infarction. No recent workup is available Story of kidney stone, spermatocele procedure in the past. Hypertension, blood pressure is usually well controlled. Monitor blood pressure Tobaccoism. Okay for discharge and follow-up as an outpatient Clinical Quality Measures AMI/AHF: ASA po Prior to arrival: CONNIE Gilmore MD Oct 29, 2020 16:08
[2020-10-29 17:00] VITALS: BP 108/78
== END 2020-10-29 17:00 | disposition other institution (70) ==
LOC: EDUNIT# 13:08 → ER 13:12 → UNDOADMOB 15:43 → ICU 15:43
DX: R07.89 Other chest pain (principal); R42 Dizziness and giddiness; Z85.07 Personal history of malignant neoplasm of pancreas; Z88.0 Allergy status to penicillin; Z88.1 Allergy status to other antibiotic agents; Z88.5 Allergy status to narcotic agent; Z88.6 Allergy status to analgesic agent; Z91.040 Latex allergy status; Z91.048 Other nonmedicinal substance allergy status
CPT/HCPCS: 36415; 71045; 80053; 83735; 83874; 84484; 85025; 85610; 85730; 93005; 93041

== ENCOUNTER → 2020-12-04 | Outpatient (CLI) | payer MEDICAID ==
[~2020-12-04] VITALS: Ht 193 cm; Wt 104.0 kg
[~2020-12-04] MED LIST changes: +CATHETER FLUSH 10 ML SYR IV PRN; +REGADENOSON 0.4 MG/5 ML SYR (LEXISCAN) IV ONE
[2020-12-04 13:18] VITALS: BP 145/85
--- NOTE | 2020-12-04 17:26 | Cardiology Stress Test Report ---
Stress Test Report Date of Procedure/Referring: Date of Procedure: Dec 04, 2020 PCP Connie Day MD Admitting Physician No,Local Physician Indications: CP Baseline Heart Rate: 75 Baseline Blood Pressure: Blood Pressure Systolic: 145 Blood Pressure Diastolic: 85 Baseline Vitals Vital Signs Date Time Temp Pulse Resp B/P (MAP) Pulse Ox O2 Delivery O2 Flow Rate FiO2 12/04/20 13:18 75 145/85 (105) 98 Baseline EKG: Baseline EKG: NSR Summary After explaining the procedure to the patient, he signed a consent and then brought to the stress nuclear laboratory. Patient received 0.4 mg Lexiscan for stress test, ECG, heart rate and blood pressure were monitored continuously. Resting and stress dose of radio tracer were injected, imaging was acquired and reviewed in short axis, horizontal long axis and vertical long axis views. TID: 1.01 SSS: 13 SDS: 6 EF: 62 1. Patient tolerated Lexiscan well 2. Diaphragmatic attenuation with reversible ischemia involving the whole inferior wall and inferolateral wall 3. Normal left ventricular size, EF 62% CONNIE DAY MD Dec 04, 2020 17:26
== END ==
LOC: CARD 11-06 08:00
PROVIDERS: ATTEND Internal Medicine Cardiovascular Disease
DX: I25.10 Atherosclerotic heart disease of native coronary artery without angina pectoris (principal); I10 Essential (primary) hypertension; F17.200 Nicotine dependence, unspecified, uncomplicated
CPT/HCPCS: 78452; 93017; A9502

== ENCOUNTER 2020-12-18 10:00 | Day surgery (SDC) | payer MEDICAID ==
[~2020-12-18] VITALS: Ht 198 cm; Wt 107.0 kg
[2020-12-18] VITALS (10 sets, daily range): BP systolic 106–141; BP diastolic 58–90
[2020-12-18 08:17] LABS: BILIRUBIN,URINE NEGATIVE (NEGATIVE); CLARITY,URINE CLEAR; COLOR,URINE YELLOW; GLUCOSE, URINE (UA) NEGATIVE (NEGATIVE); KETONES,URINE NEGATIVE (NEGATIVE); LEUKOCYTE ESTERASE ,URINE NEGATIVE (NEGATIVE); NITRITE,URINE NEGATIVE (NEGATIVE); PROTEIN,URINE NEGATIVE (NEGATIVE)
[2020-12-18 08:19] LABS: HEMOGLOBIN 16.6 g/dL (13.3-17.7); MEAN PLATELET VOLUME 9.6 fL (9.0-12.2); WHITE BLOOD COUNT 6.7 10^3/uL (4.3-11.0)
[2020-12-18 08:27] LABS: BACTERIA,URINE NEGATIVE /HPF; SQUAMOUS EPITHELIAL CELL,UR RARE /HPF
[2020-12-18 08:30] LABS: INR 0.9 (0.8-1.4); PROTHROMBIN TIME PATIENT 12.4 SEC (12.2-14.7)
--- NOTE | 2020-12-18 08:36 | Diagnostic Imaging Report ---
INDICATION: Preop coronary disease COMPARISON: 10/29/2020 FINDINGS: New right medial lung suprahilar pulmonary opacity is asymptomatic likely a focus of atelectasis but could reflect pneumonia in the appropriate scenario. Consider follow-up. Air trapping and COPD is chronic findings present. No effusion or pneumothorax. IMPRESSION: Right suprahilar pulmonary opacity atelectasis versus early infiltrate. Background COPD and air trapping chronic. Radiographic follow-up suggested. Dictated by: Dictated on workstation # [id number]
[2020-12-18 08:37] LABS: ALANINE AMINOTRANSFERASE 19 U/L (0-55); ALBUMIN 4.2 GM/DL (3.2-4.5); ALKALINE PHOSPHATASE 77 U/L (40-136); BILIRUBIN,TOTAL 0.4 MG/DL (0.1-1.0); BUN/CREATININE RATIO 11; CALCIUM 9.2 MG/DL (8.5-10.1); CARBON DIOXIDE 20 MMOL/L (21-32); CHLORIDE 106 MMOL/L (98-107); CHOLESTEROL 195 MG/DL (< 200); CREATININE SERUM 1.14 MG/DL (0.60-1.30); GFR ESTIMATED > 60; GLUCOSE 110 MG/DL (70-105); HDL CHOLESTEROL 26 MG/DL (40-60); POTASSIUM 4.1 MMOL/L (3.6-5.0); SODIUM 139 MMOL/L (135-145); TOTAL PROTEIN 6.7 GM/DL (6.4-8.2); TRIGLYCERIDES 528 MG/DL (<150)
--- NOTE | 2020-12-18 08:37 | Conscious Sedation/ASA ---
Conscious Sedation Pre-Proced Time 08:37 ASA Score 3 For ASA 3 and 4: Consider anesthesia and medical clearance. Also, for patients with a history of failed moderate sedation consider anesthesia. Airway Lungs Heart ASA score ASA 1: a normal healthy patient ASA 2: a patient with a mild systemic disease (mid diabetes, controlled hypertension, obesity x ASA 3: a patient with a severe systemic disease that limits activity (angina, COPD, prior Myocardial infarction) ASA 4: a patient with an incapacitating disease that is a constant threat to life (CHF, renal failure) ASA 5: a moribund patient not expected to survive 24 hrs. (ruptured aneurysm) ASA 6: a declared brain- patient whose organs are being harvested. For emergent operations, add the letter E after the classification Mallampati Classification Grade 3 Sedation Plan Analgesia, Amnesia, Plan communicated to team members, Discussed options with patient/fam, Discussed risks with patient/fam The patient is an appropriate candidate to undergo the planned procedure, sedation, and anesthesia. The patient immediately re-assessed prior to indication. CONNIE JARVIS MD Dec 18, 2020 08:37
[~2020-12-18 10:00] MED LIST changes: -CATHETER FLUSH 10 ML SYR IV PRN; +HEParin (CATH LAB) 2,000 ML IV ONE; +HEParin 1000 UNIT/ML (10ML VIAL) FOR BOLUS ONE; +LIDOCAINE 1% INJ 20 ML 20 ML VIAL ONE; +MIDAZOLAM 5 MG/5 ML (VERSED) VIAL ONE; +NITRO DRIP 25000 MCG/D5W 250 ML IV ONE; +NS IV 1000 ML 1,000 ML IV SCH; +NS IV 1000 ML 1,000 ML ONE; -REGADENOSON 0.4 MG/5 ML SYR (LEXISCAN) IV ONE; +VERAPAMIL 5 MG/2 ML (CALAN) VIAL IV ONE; +fentaNYL INJ 100 MCG/2 ML AMP ONE
[2020-12-18] MEDS ORDERED: FENO145T26 PO ×2 (10:04)
--- NOTE | 2020-12-18 10:05 | Discharge Inst-Post CATH ---
Discharge Inst-CATH/EP Problems Reviewed?: Yes Post Cardiac Cath/EP D/C Inst Follow Up/Plan Appointment with Dr. Day's office in 4 to 6 weeks <b>CARDIAC CATH/EP PROCEDURE DISCHARGE INSTRUCTIONS</b> ACTIVITY * Go Home directly and rest. * Limit activity of the leg (or wrist if it was used) for 7 days including aer obics, swimming, jogging, bicycling, etc. * Restrict stair-climbing for 7 days if possible, if not, climb up with your non-cath leg, then bring together on the same step. * Avoid lifting, pushing, pulling or excessive movement of the affected extremi ty for 7 days. * Customary sexual activity may be resumed after 2 days-use caution not to use a position that strains or causes pain to the affected extremity. * No driving for 24 hours. * NO SMOKING. * Avoid straining for bowel movements for 7 days. * Gentle walking on level ground is allowed. * Returning to work will depend on the type of procedure and the results. Your doctor will discuss this with you. CALL YOUR DOCTOR FOR ANY OF THE FOLLOWING: *If bleeding from the puncture site occurs- Apply gentle pressure to site with clean cloth and call your doctor or EMS. * If a knot or lump forms under the skin, increases in size, or causes pain. * If bruising appears to be worsening or moving further down your leg instead of disappearing. * Temperature above 101 F. CARE OF YOUR GROIN INCISION; * Bruising or purple discoloration of the skin near the puncture site is common. * You may shower only, no bathtub bathing for 5 days. Be careful to avoid slipping as your leg may feel stiff. * If a closure device was used on your femoral artery, please see the attached guide regarding care of the device and your leg. * Leave dressing on FOR 24 hours. CARE OF YOUR WRIST INCISION; * Bruising or purple discoloration of the skin near the puncture site is common. * You may shower. * DO NOT submerge wrist. * Leave dressing on FOR 24 hours. CONNIE DAY MD Dec 18, 2020 10:05
--- NOTE | 2020-12-18 10:08 | Cardiac Cath Report ---
Cardiac Cath Report Physician (s)/Biophysics Professor (s) Physician CONNIE JARVIS MD Pre-Procedure Diagnosis Pre-Procedure Diagnosis: Coronary artery disease Post-Procedure Note Procedure Start Date: Dec 18, 2020 Name of Procedure: Left heart catheterization Findings/Procedure Note PROCEDURE NOTE: 50 years old gentleman with hypertriglyceridemia, has been having chest pain, had an abnormal stress test, scheduled for cardiac catheterization possible PTCA. After explaining the procedure to the patient, all pros and cons were explained, all questions were answered. The patient signed the consent and then he was placed on the cardiac catheterization laboratory. Groin was prepped SL fashion local anesthesia was used. Sheath placed in the artery. [place] catheter was used, advanced to the left ventricular cavity, pressure was measured, pullback LV to aorta was done, intubated the right coronary artery and angiogram was done then turned to the left coronary system and angiogram was done. At the end of the procedure the sheath was removed. Vascular band deployed FINDINGS: Hemodynamics LV 92/8, end-diastolic pressure of 8 Aorta 94/68 mean of 79 ANATOMY: Left Main is free of obstructive disease Left Anterior Descending has mild irregularities with no obstructive disease Left Circumflex has mild irregularities with no significant obstructive disease Right Coronory Artery has no significant obstructive disease LV Gram was not done, pressure was measured CONCLUSION: 1. Mild coronary artery disease nonobstructive disease 2. Normal left ventricular end-diastolic pressure DISCUSSION AND RECOMMENDATION: Patient was noted to have mild coronary artery disease nonobstructive disease. Triglyceride is over 500, will start on fenofibrate and monitor triglyceride level Anesthesia Type: Conscious Sedation Estimated blood loss (mL): 10 ml Contrast Amount: 49 ml Total Radiation Dose: 223 mGy Post-Procedure Diagnosis Post-operative diagnosis: Coronary artery disease Hypertriglyceridemia Chest pain Tobaccoism CONNIE JARVIS MD Dec 18, 2020 10:08
[2020-12-18] MEDS ORDERED: NS IV 1000 ML 1,000 ML IV SCH (10:15)
== END 2020-12-18 12:32 | disposition home or self-care (01) ==
LOC: CATH 10:00 → SDC 10:14 → CATH 12:32
PROVIDERS: ATTEND Internal Medicine Cardiovascular Disease
DX: I25.10 Atherosclerotic heart disease of native coronary artery without angina pectoris (principal); E78.1 Pure hyperglyceridemia; J44.9 Chronic obstructive pulmonary disease, unspecified; G40.909 Epilepsy, unspecified, not intractable, without status epilepticus; F17.210 Nicotine dependence, cigarettes, uncomplicated; Z79.899 Other long term (current) drug therapy; Z88.0 Allergy status to penicillin; Z88.5 Allergy status to narcotic agent; Z91.040 Latex allergy status; Z88.1 Allergy status to other antibiotic agents; Z91.048 Other nonmedicinal substance allergy status
CPT/HCPCS: 71045; 80053; 80061; 81000; 85027; 85610; 85730; 87081; 93458; C1894; 36415

== ENCOUNTER 2020-12-24 13:43 | Emergency (ER) | payer MEDICAID ==
[~2020-12-24] VITALS: Ht 185.4 cm; Wt 107.9 kg
[~2020-12-24 13:43] MED LIST changes: +FENO145T26 PO; -HEParin (CATH LAB) 2,000 ML IV ONE; -HEParin 1000 UNIT/ML (10ML VIAL) FOR BOLUS ONE; -LIDOCAINE 1% INJ 20 ML 20 ML VIAL ONE; -MIDAZOLAM 5 MG/5 ML (VERSED) VIAL ONE; -NITRO DRIP 25000 MCG/D5W 250 ML IV ONE; -NS IV 1000 ML 1,000 ML IV SCH; -NS IV 1000 ML 1,000 ML ONE; -VERAPAMIL 5 MG/2 ML (CALAN) VIAL IV ONE; -fentaNYL INJ 100 MCG/2 ML AMP ONE
[2020-12-24 13:49] VITALS: BP 143/84
--- NOTE | 2020-12-24 14:17 | ED General ---
General Chief Complaint: Skin/Wound Problems Stated Complaint: FEVER; WOUND CHECK Nursing Triage Note: Patient presents to the ED with c/o of nausea, fever, redness and inflammation from the catheterization site on his wrist to his elbow. Patient also reports a syncopal episode; states that he was walking across the street when he became lightheaded and passed out. Upon arrival to the ED no redness or inflammation is noted from the catheterization site. Nursing Sepsis Screen: No Definite Risk Source of Information: Patient History of Present Illness Date Seen by Provider: Dec 24, 2020 Time Seen by Provider: 13:45 Initial Comments Patient is a 50-year-old male status post heart cath with PTCA and stent placement 6 days ago presents with concerns about infection to right radial wrist insertion site. Patient states he woke up with redness swelling over the insertion site of his right wrist. Swelling and redness to right wrist has since resolved. He reports feeling nauseated chills and sweats at that time. He reports feeling dizzy or walking to his mother's home. He denies chest pain palpitations shortness of breath, fever or other anginal equivalents. States overall he feels as though he is in good health. He does not have any abdominal pain or diarrhea. He was able to drink coffee this morning without difficulty. Patient is concerned that he may have an infection to his right wrist. He denies any other acute symptoms or complaints. No medications or therapies prior to ED arrival. Timing/Duration: 4-6 Hours Severity: Mild Modifying Factors: improves with Other Associated Systoms: Other Allergies and Home Medications Allergies Coded Allergies: ofloxacin (Verified Allergy, Mild, 07/17/19) acetaminophen (Verified Allergy, Unknown, Hives, 03/13/20) Penicillins (Verified Adverse Reaction, Unknown, Pt has received Ceftriaxone in the past, 07/17/19) aspirin (Verified Adverse Reaction, Unknown, 07/17/19) latex (Verified Adverse Reaction, Unknown, 07/17/19) Uncoded Allergies: TAPE (Allergy, Mild, 07/17/09) Home Medications Fenofibrate Nanocrystallized 145 Mg Tablet, 145 MG PO DAILY Prescribed by: CONNIE JARVIS on 12/18/20 1004 Patient Home Medication List Home Medication List Reviewed: Yes Review of Systems Review of Systems Constitutional: see HPI EENTM: see HPI Respiratory: see HPI Cardiovascular: see HPI Gastrointestinal: see HPI Genitourinary: see HPI Musculoskeletal: see HPI Skin: see HPI Psychiatric/Neurological: See HPI Hematologic/Lymphatic: See HPI Immunological/Allergic: see HPI All Other Systems Reviewed Negative Unless Noted: Yes Past Mothhie-Mwjsxn-Btteww Hx Past Med/Social Hx: Reviewed Nursing Past Med/Soc Hx Patient Social History Alcohol Use: Past History Number of Drinks Today: AA Alcohol Beverage of Choice: Beer Drug of Choice: POT Smoking Status: Current Everyday Smoker Type Used: Cigarettes 2nd Hand Smoke Exposure: No Recent Infectious Disease Expo: No Recent Hopitalizations: No Immunizations Up To Date Tetanus Booster (TDap): Less than 5yrs PED Vaccines UTD: Yes Seasonal Allergies Seasonal Allergies: No Past Medical History Surgeries: Yes (hernia repair, left testicle injury, brain surgery, cardiac stent) Cardiac, Coronary Stent, Orthopedic, Thyroidectomy Respiratory: Yes COPD Currently Using CPAP: No Currently Using BIPAP: No Cardiac: Yes (STENT) Heart Attack Neurological: Yes Seizure Disorder Reproductive Disorders: No Sexually Transmitted Disease: No HIV/AIDS: No Genitourinary: Yes Kidney Stones Gastrointestinal: No Musculoskeletal: No Endocrine: No HEENT: Yes Loss of Vision: Bilateral Cancer: Yes Pancreatic Psychosocial: No Integumentary: No Blood Disorders: No Adverse Reaction/Blood Tranf: No (N/A) Family Medical History Stroke Physical Exam Vital Signs Vital Signs - First Documented 12/24/20 13:49 Temp 36.7 Pulse 76 Resp 16 B/P (MAP) 143/84 (103) Pulse Ox 96 O2 Delivery Room Air Capillary Refill : Less Than 3 Seconds Height, Weight, BMI Height: 6'4.00" Weight: 225lbs. 0.0oz. 102.787836ul; 31.00 BMI Method:Stated General Appearance: No Apparent Distress, WD/WN, Other Eyes: Bilateral Eye Normal Inspection, Bilateral Eye PERRL, Bilateral Eye EOMI HEENT: PERRL/EOMI, Normal ENT Inspection, Moist Mucous Membranes Neck: Full Range of Motion, Supple Respiratory: Lungs Clear, Normal Breath Sounds Extremity: Normal Inspection, Normal Range of Motion, Other (Right wrist, no swelling bruising erythema streaking weeping or other signs of infection.) Neurologic/Psychiatric: Alert, Oriented x3, No Motor/Sensory Deficits Focused Exam Sepsis Stage: Ruled Out Progress/Results/Core Measures Suspected Sepsis Recent Fever Within 48 Hours: No Infection Criteria Present: Suspected New Infection New/Unexplained Altered Menta: No Sepsis Screen: No Definite Risk SIRS Temperature: Pulse: 76 Respiratory Rate: 16 Blood Pressure 143 /84 Mean: 103 Results/Orders Lab Results Laboratory Tests Test 12/24/20 14:09 Range/Units My Orders Orders - JESSICA DANIELLE DO Accucheck Fasting (12/24/20 14:02) Vital Signs/I&O 12/24/20 13:49 Temp 36.7 Pulse 76 Resp 16 B/P (MAP) 143/84 (103) Pulse Ox 96 O2 Delivery Room Air Capillary Refill : Less Than 3 Seconds Blood Pressure Mean: 103 Departure Communication (Admissions) Patient with reassuring physical exam with unremarkable wrist exam. Vital signs stable.. He states he is very anxious about his health which I think likely contributed to his heightened concern for infection. Will obtain blood sugar to rule out hypoglycemic event anticipate discharge home if normal. He is otherwise to follow-up with his PCP in [place] as scheduled. Return precautions reviewed. Patient verbalizes understanding agreement with discharge instructions prior to departure. Impression Primary Impression: Nausea Disposition: 01 HOME, SELF-CARE Condition: Stable Departure-Patient Inst. Decision time for Depature: 14:16 Referrals: NO,LOCAL PHYSICIAN (PCP/Family) Primary Care Physician Patient Instructions: Nausea and Vomiting of (DC) Add. Discharge Instructions: Please continue to follow all instructions provided to you by your [facility]. Follow-up with your PCP and [facility] as scheduled. Return to the ED if new or worsening symptoms. All discharge instructions reviewed with patient and/or family. Voiced understanding. JESSICA DANIELLE DO Dec 24, 2020 14:17
== END 2020-12-24 14:24 | disposition home or self-care (01) ==
LOC: EDUNIT# 13:43 → ER FS 13:46
DX: R11.0 Nausea (principal); J44.9 Chronic obstructive pulmonary disease, unspecified; I25.2 Old myocardial infarction; F17.210 Nicotine dependence, cigarettes, uncomplicated; Z88.1 Allergy status to other antibiotic agents; Z88.0 Allergy status to penicillin; Z88.8 Allergy status to other drugs, medicaments and biological substances; Z88.6 Allergy status to analgesic agent; Z95.5 Presence of coronary angioplasty implant and graft
CPT/HCPCS: 82947

== ENCOUNTER 2021-02-10 10:11 | Emergency (ER) | payer MEDICAID ==
[~2021-02-10] VITALS: Ht 193 cm; Wt 108.7 kg
--- NOTE | 2021-02-10 11:26 | Diagnostic Imaging Report ---
INDICATION: Right rib pain. TECHNIQUE: A PA chest and five views of the right ribs were obtained. FINDINGS: There are no displaced rib fractures seen. There is a right suprahilar nodular opacity measuring 1.5 cm in diameter that was not apparent on a chest x-ray dated 10/29/2020. IMPRESSION: The right suprahilar pulmonary opacity could be developing neoplasm. Further evaluation with CT is recommended. There are no displaced rib fractures seen. Dictated by: Dictated on workstation # [id number]
--- NOTE | 2021-02-10 11:39 | ED Fall/Injury ---
General Chief Complaint: Trauma-Non Activation Stated Complaint: FALL; BACK INJ Nursing Triage Note: Pt ambulatory to ED. Pt reports falling over a railing approximately from four feet. Pt reports falling onto concrete. Pt reports feeling a "crack" on the right side. Pt c/o pain with inspiration. Pt denies hitting head or LOC. Source: patient History of Present Illness Date Seen by Provider: Feb 10, 2021 Time Seen by Provider: 10:20 Initial Comments 51-year-old male presenting with complaints of right posterior rib and chest wall pain. He states that he had his foot caught up in the dog's leash/chain and he fell. He fell over a railing that was approximately 4 feet up. He states he landed on concrete and was having pain and heard and felt a pop or crack on the right side of chest and ribs. He has had severe pain in that area since the injury. He reports it happened overnight. He has increased pain with inspiration and cough. He denies hitting his head and losing consciousness. He has no pain in abdomen or extremities. Location Injury Occurred: home Occurred: other (over night) Severity: severe Injuries/Pain Location: chest (right posterior chest wall/ribs) Loss of Consciousness: no loss of consciousness Modifying Factors: Worse With Movement Associated Symptoms (Fall): No Abdominal Pain; Chest Pain; No Confusion, No Dizziness, No Headache, No Lightheadedness, No Muscle Spasms, No Nausea/Vomiting, No Neck Pain, No Ringing in Ears, No Seizures, No Shortness of Air, No Slurred Speech, No Trouble Walking, No Vision Changes Allergies and Home Medications Allergies Coded Allergies: ofloxacin (Verified Allergy, Mild, 07/17/19) acetaminophen (Verified Allergy, Unknown, Hives, 03/13/20) Penicillins (Verified Adverse Reaction, Unknown, Pt has received Ceftriaxone in the past, 07/17/19) aspirin (Verified Adverse Reaction, Unknown, 07/17/19) latex (Verified Adverse Reaction, Unknown, 07/17/19) Uncoded Allergies: TAPE (Allergy, Mild, 07/17/09) Home Medications Fenofibrate Nanocrystallized 145 Mg Tablet, 145 MG PO DAILY Prescribed by: CONNIE DAY on 12/18/20 1004 Oxycodone HCl/Acetaminophen 1 Each Tablet, 1 EACH PO Q4H PRN for PAIN-SEVERE (8- 10) Prescribed by: SERGE LIGHT on 02/10/21 1201 Patient Home Medication List Home Medication List Reviewed: Yes Review of Systems Review of Systems Constitutional: No chills, No fever Eyes: No Symptoms Reported Ears, Nose, Mouth, Throat: no symptoms reported Respiratory: see HPI Cardiovascular: no symptoms reported Gastrointestinal: no symptoms reported Genitourinary: no symptoms reported Musculoskeletal: see HPI Skin: No change in color (no bruises or abrasion or break in skin) Psychiatric/Neurological: Denies Numbness, Denies Paresthesia Past Uvqmanw-Gbiory-Rvudfj Hx Past Med/Social Hx: Reviewed Nursing Past Med/Soc Hx Patient Social History Alcohol Use: Occasionally Uses Number of Drinks Today: AA Alcohol Beverage of Choice: Beer Drug of Choice: POT Type Used: Cigarettes 2nd Hand Smoke Exposure: No Recent Infectious Disease Expo: No Recent Hopitalizations: No Immunizations Up To Date Tetanus Booster (TDap): Less than 5yrs PED Vaccines UTD: Yes Seasonal Allergies Seasonal Allergies: No Past Medical History Surgeries: Yes (hernia repair, left testicle injury, brain surgery, cardiac stent) Cardiac, Coronary Stent, Orthopedic, Thyroidectomy Respiratory: Yes COPD Currently Using CPAP: No Currently Using BIPAP: No Cardiac: Yes (STENT) Heart Attack Neurological: Yes Seizure Disorder Reproductive Disorders: No Sexually Transmitted Disease: No HIV/AIDS: No Genitourinary: Yes Kidney Stones Gastrointestinal: No Musculoskeletal: No Endocrine: No HEENT: Yes Loss of Vision: Bilateral Cancer: Yes Pancreatic Psychosocial: Yes ("anger issues") Integumentary: No Blood Disorders: No Adverse Reaction/Blood Tranf: No (N/A) Family Medical History Stroke Physical Exam Vital Signs Vital Signs - First Documented 02/10/21 10:25 Temp 36.9 Pulse 92 Resp 20 B/P (MAP) 134/82 (99) Pulse Ox 97 O2 Delivery Room Air Capillary Refill : Less Than 3 Seconds Height, Weight, BMI Height: 6'4.00" Weight: 225lbs. 0.0oz. 102.061502oa; 29.00 BMI Method:Stated General Appearance: mild distress HEENT: PERRL/EOMI Neck: non-tender, supple, normal inspection Cardiovascular: normal peripheral pulses, regular rate, rhythm Respiratory: lungs clear, no respiratory distress, no accessory muscle use, other (pain with palpation to right posterior chest wall wrapping around his side along the ribs. 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 audit advisor II-XII nml as tested, alert, oriented x 3 Skin: normal color, warm/dry; No ecchymosis Prosper Coma Score Best Eye Response: (4) Open Spontaneously Best Verbal Response: (5) Oriented Best Motor Response: (6) Obeys Commands [place] Total: 15 Progress/Results/Core Measures Results/Orders My Orders Orders - SERGE LIGHT MD Ribs/Unilateral With Chest (02/10/21 11:07) Dexamethasone Injection (Decadron Inje (02/10/21 11:51) Methylprednisolone Acetate Inj (Depo-Med (02/10/21 11:51) Vital Signs/I&O 02/10/21 02/10/21 10:25 12:19 Temp 36.9 36.9 Pulse 92 78 Resp 20 20 B/P (MAP) 134/82 (99) 129/70 (99) Pulse Ox 97 98 O2 Delivery Room Air Room Air Blood Pressure Mean: 99 Progress Progress Note #1: Progress Note Obtain x-rays of the ribs and chest from the right side. Offered pain medicine but the patient was driving and did not want to become sleepy. Progress Note #2: Progress Note X-rays did not demonstrate any acute pneumothorax or definite rib fracture. He does have a 1.5 cm nodule in the right lung that is new from October when he last had x-rays. Advised patient about treatment for rib contusion bruise as well as chest wall contusion. As far as the 1.5 cm nodule is recommended that he have a CT scan done to further evaluate this. Patient was here with his significant other and child so he did not want to wait to have blood work and a CT scan done today. Advised that he could have it done as an outpatient and get in with the clinic. If he has shortness of breath is getting worse or starts coughing up blood then he needs to return sooner. Diagnostic Imaging Diagonstic Imaging: Xray Plain Films/CT/US/NM/MRI: chest Comments [facility] [place], [place] NAME: ALEA COYNE [facility] REC#: [id number] PT STATUS: REG ER : 1970 PHYSICIAN: SERGE LIGHT MD ADMIT DATE: 02/10/21/ER FS Signed Date of Exam:02/10/21 RIBS/UNILATERAL WITH CHEST INDICATION: Right rib pain. TECHNIQUE: A PA chest and five views of the right ribs were obtained. FINDINGS: There are no displaced rib fractures seen. There is a right suprahilar nodular opacity measuring 1.5 cm in diameter that was not apparent on a chest x-ray dated 10/29/2020. IMPRESSION: The right suprahilar pulmonary opacity could be developing neoplasm. Further evaluation with CT is recommended. There are no displaced rib fractures seen. Dictated by: Dictated on workstation # [id number] Dict: 02/10/21 1121 Trans: 02/10/21 1126 [id number] Interpreted by: NICCI MONTANA MD Electronically signed by: NICCI MONTANA MD 02/10/21 1126 Reviewed: Reviewed by Me Departure Impression Primary Impression: Rib contusion Qualified Codes: S20.211A - Contusion of right front wall of thorax, initial encounter Additional Impressions: Contusion of right back wall of thorax, initial encounter Fall Qualified Codes: W19.XXXA - Unspecified fall, initial encounter Pulmonary nodule 1 cm or greater in diameter Disposition: 01 HOME, SELF-CARE Condition: Stable Departure-Patient Inst. Decision time for Depature: 12:01 Referrals: SANDRA OKEEFE MD, BASHAR J MD NO,LOCAL PHYSICIAN (PCP) Primary Care Physician [facility] Patient Instructions: Blunt Chest Trauma ED, Pulmonary Nodule, Quitting Smoking ED, Rib Fracture or Bruised Rib ED Add. Discharge Instructions: The steroid shots from today will help with pain and inflammation. Use ice 15-20 minutes every few hours to the ribs/chest wall to help with pain and inflammation. Take the pain medicine for severe pain and to help you rest. You could try using Lidocaine patches over the counter to the painful chest area as well to help numb it and decrease your pain. For the lung nodule you will need to get a CT scan to further look at it and get more detail about what it is and what is going on with it. You could set this up through the clinic to be done. To establish care with [facility] you could try calling [phone]. You could also check with Dr. Day or Dr. Okeefe to see if they can see you about it or help with testing. Stop smoking as that will help with your lungs and with cough which can make your rib and chest wall hurt more. All discharge instructions reviewed with patient and/or family. Voiced understanding. Scripts Oxycodone HCl/Acetaminophen (Oxycodone-Acetaminophen 5-325) 1 Each Tablet 1 EACH PO Q4H PRN for PAIN-SEVERE (8-10) MDD 6 for 5 Days, #30 TAB 0 Refills Prov: SERGE LIGHT MD 02/10/21 Images Torso/Trunk 1 - Severe, Tenderness (Severe tenderness with mild palpation of the posterior and lateral chest wall on the right side. No crepitus or step-offs noted) SERGE LIGHT MD Feb 10, 2021 11:39
[2021-02-10] MEDS ORDERED: methylPREDNISolone 80 MG/ML (DEPO MEDROL) VIAL IM STA (11:51)
[2021-02-10] MEDS ORDERED: OXYC1TAB11 PO (12:00)
[2021-02-10 12:19] VITALS: BP 129/70
== END 2021-02-10 12:19 | disposition home or self-care (01) ==
LOC: EDUNIT# 10:11 → ER FS 10:13
DX: S20.221A Contusion of right back wall of thorax, initial encounter (principal); R91.1 Solitary pulmonary nodule; J44.9 Chronic obstructive pulmonary disease, unspecified; I25.2 Old myocardial infarction; W23.1XXA Caught, crushed, jammed, or pinched between stationary objects, initial encounter
CPT/HCPCS: 71101

== ENCOUNTER → 2021-02-18 | Outpatient (CLI) | payer MEDICAID ==
[~2021-02-18] MED LIST changes: +CATHETER FLUSH 10 ML SYR IV PRN; +HOLD METFORMIN - RECEIVED CONTRAST 20 ML VIAL IV SCH; +IOHEXOL 350 MG/ML 100 ML (OMNIPAQUE 350) VIAL IV ONE; +NS 100 ML (IVPB) BAG IV ONE; +OXYC1TAB11 PO
--- NOTE | 2021-02-18 16:27 | Diagnostic Imaging Report ---
EXAMINATION: CT chest with intravenous contrast. TECHNIQUE: Multiple contiguous axial images were obtained through the chest after the uneventful administration of intravenous contrast. All CT scans use one or more of the following dose optimizing techniques: automated exposure control, MA and/or KvP adjustment based on patient size and exam type or iterative reconstruction. HISTORY: LUNG MASS COMPARISON: Chest radiograph from 12/18/2020. FINDINGS: Thyroid: The thyroid is normal. Mediastinum: Heart size is normal without significant pericardial effusion. The aorta is normal in caliber. No suspicious lymphadenopathy. Lungs and airways: The lungs are clear without consolidation, pleural effusion, or pneumothorax. There is a 3.2 x 1.7 cm right upper lobe perihilar mass (series 5 image 73). The airways are normal. Upper abdomen: Cholecystectomy. Nonobstructing bilateral renal calculi. A duodenal diverticulum is present. Musculoskeletal: No suspicious osseous lesion or compression fracture. IMPRESSION: 1. A 3.2 x 1.7 cm mass within the right upper lobe is suspicious. Recommend further evaluation with PET/CT or CT-guided biopsy. Dictated by: Dictated on workstation # [id number]
== END ==
LOC: RAD FS 14:19
PROVIDERS: ATTEND Allergy & Immunology
DX: R91.8 Other nonspecific abnormal finding of lung field (principal)
CPT/HCPCS: 71260

== ENCOUNTER 2021-03-15 19:49 | Emergency (ER) | payer MEDICAID, MEDICARE ==
[~2021-03-15 19:49] MED LIST changes: -CATHETER FLUSH 10 ML SYR IV PRN; -HOLD METFORMIN - RECEIVED CONTRAST 20 ML VIAL IV SCH; -IOHEXOL 350 MG/ML 100 ML (OMNIPAQUE 350) VIAL IV ONE; -NS 100 ML (IVPB) BAG IV ONE; -SULF1TAB35 PO; +SULF1TAB38 PO
[2021-03-15 20:02] VITALS: BP_SYST 114; BP_SYST 134; BP_SYST 136; BP_DIAS 74; BP_DIAS 77; BP_DIAS 81
--- NOTE | 2021-03-15 20:08 | ED General ---
General Chief Complaint: Dizziness/Syncope Stated Complaint: DIZZINESS Nursing Triage Note: Pt states he was working on his truck outside and thinks he got overheated. Pt states he has muscle cramps and feels light headed when standing Source of Information: Patient History of Present Illness Date Seen by Provider: Mar 15, 2021 Time Seen by Provider: 20:04 Initial Comments 51-year-old male presents with onset of lightheadedness and dizziness about 4:00 this afternoon. States he is working outdoors on his vehicle and was sweating a lot, but then sweating stopped and he started to feel lightheaded. States he has been drinking fluids, but not urinating as much. Denies any chest pain, shortness of air, swelling of extremities, abdominal pain, nausea or vomiting. Denies recent illness fever chills. Allergies and Home Medications Allergies Coded Allergies: ofloxacin (Verified Allergy, Mild, 07/17/19) acetaminophen (Verified Allergy, Unknown, Hives, 03/13/20) Penicillins (Verified Adverse Reaction, Unknown, Pt has received Ce ftriaxone in the past, 07/17/19) aspirin (Verified Adverse Reaction, Unknown, 07/17/19) latex (Verified Adverse Reaction, Unknown, 07/17/19) Uncoded Allergies: TAPE (Allergy, Mild, 07/17/09) Home Medications Fenofibrate Nanocrystallized 145 Mg Tablet, 145 MG PO DAILY Prescribed by: CONNIE JARVIS on 12/18/20 1004 Oxycodone HCl/Acetaminophen 1 Each Tablet, 1 EACH PO Q4H PRN for PAIN-SEVERE (8- 10) Prescribed by: SERGE LIGHT on 02/10/21 1201 Patient Home Medication List Home Medication List Reviewed: Yes Review of Systems Review of Systems Constitutional: dizziness; No fever, No malaise, No weakness EENTM: no symptoms reported Respiratory: No cough, No short of breath Cardiovascular: No chest pain, No edema, No palpitations, No syncope Gastrointestinal: No abdominal pain, No constipation, No diarrhea, No nausea, No vomiting Musculoskeletal: No back pain, No neck pain Skin: No change in color, No rash Psychiatric/Neurological: Denies Headache, Denies Numbness, Denies Paresthesia, Denies Seizure, Denies Tingling, Denies Tremors, Denies Weakness Past Fndgxxj-Klqoko-Eaghap Hx Patient Social History Tobacco Use?: Yes Use of E-Cig and/or Vaping dev: No Substance use?: No Alcohol Use?: No Pt feels they are or have been: No Immunizations Up To Date Tetanus Booster (TDap): Less than 5yrs PED Vaccines UTD: Yes Seasonal Allergies Seasonal Allergies: No Past Medical History Surgeries: Yes (hernia repair, left testicle injury, brain surgery, cardiac stent) Cardiac, Coronary Stent, Orthopedic, Thyroidectomy Respiratory: Yes COPD Currently Using CPAP: No Currently Using BIPAP: No Cardiac: Yes (STENT) Heart Attack Neurological: Yes Seizure Disorder Reproductive Disorders: No Sexually Transmitted Disease: No HIV/AIDS: No Genitourinary: Yes Kidney Stones Gastrointestinal: No Musculoskeletal: No Endocrine: No HEENT: Yes Loss of Vision: Bilateral Cancer: Yes Pancreatic Psychosocial: Yes ("anger issues") Integumentary: No Blood Disorders: No Adverse Reaction/Blood Tranf: No (N/A) Family Medical History Stroke Physical Exam Vital Signs Vital Signs - First Documented 03/15/21 19:53 Temp 36.6 Pulse 88 Resp 20 B/P (MAP) 129/74 (92) Pulse Ox 96 O2 Delivery Room Air Capillary Refill : Less Than 3 Seconds Height, Weight, BMI Height: 6'4.00" Weight: 225lbs. 0.0oz. 102.216893tx; 29.00 BMI Method:Stated General Appearance: No Apparent Distress, WD/WN Eyes: Bilateral Eye Normal Inspection, Bilateral Eye PERRL, Bilateral Eye EOMI HEENT: PERRL/EOMI, Normal ENT Inspection Neck: Full Range of Motion, Non Tender, Supple Respiratory: Chest Non Tender, Lungs Clear, Normal Breath Sounds, No Accessory Muscle Use, No Respiratory Distress Cardiovascular: Regular Rate, Rhythm, No Edema, No JVD Gastrointestinal: Normal Bowel Sounds, Non Tender, Soft Back: Normal Inspection, No CVA Tenderness Extremity: Normal Capillary Refill, Normal Inspection, Normal Range of Motion, Non Tender, No Calf Tenderness Neurologic/Psychiatric: Alert, Oriented x3, No Motor/Sensory Deficits, Normal Mood/Affect Progress/Results/Core Measures Suspected Sepsis SIRS Temperature: Pulse: 90 Respiratory Rate: 20 Blood Pressure 114 /81 Mean: 92 Results/Orders Vital Signs/I&O 03/15/21 03/15/21 19:53 20:02 Temp 36.6 Pulse 88 90 89 90 Resp 20 B/P (MAP) 129/74 (92) 136/77 (96) 134/74 (94) 114/81 (92) Pulse Ox 96 O2 Delivery Room Air Capillary Refill : Less Than 3 Seconds Blood Pressure Mean: 92 Departure Impression Primary Impression: Orthostatic dizziness Disposition: 01 HOME, SELF-CARE Condition: Improved Departure-Patient Inst. Referrals: DARREN CARNEY MD (PCP/Family) Primary Care Physician Patient Instructions: Orthostatic Hypotension (DC) Add. Discharge Instructions: follow up with your PCP in 2 to 3 days if not improving, ER sooner if worse. All discharge instructions reviewed with patient and/or family. Voiced understanding. HENRY STINSON DO Mar 15, 2021 20:07
[2021-03-15] MEDS ORDERED: NS IV 1000 ML 1,000 ML ONE (20:13)
[2021-03-15] MEDS ORDERED: NS IV 1000 ML 1,000 ML IV SCH (20:15)
[2021-03-15 20:24] LABS: BASOPHILS % (AUTO) 1 % (0-10); EOSINOPHILS % (AUTO) 2 % (0-10); HEMATOCRIT 49 % (40-54); HEMOGLOBIN 17.1 G/DL (13.3-17.7); LYMPHOCYTES % (AUTO) 32 % (12-44); MEAN CORPUSCULAR HEMOGLOBIN 31 PG (25-34); MEAN CORPUSCULAR HGB CONC 35 G/DL (32-36); MEAN CORPUSCULAR VOLUME 89 FL (80-99); MEAN PLATELET VOLUME 10.2 FL (7.4-10.4); MONOCYTES % (AUTO) 6 % (0-12); NEUTROPHILS % (AUTO) 60 % (42-75); PLATELET COUNT 190 10^3/uL (130-400); WHITE BLOOD COUNT 8.8 10^3/uL (4.3-11.0)
[2021-03-15 20:25] LABS: BASOPHILS # (AUTO) 0.1 10^3/uL (0.0-0.1); EOSINOPHILS # (AUTO) 0.2 10^3/uL (0.0-0.3); LYMPHOCYTES # (AUTO) 2.8 X 10^3 (1.0-4.0); MONOCYTES # (AUTO) 0.5 X 10^3 (0.0-1.0); NEUTROPHILS # (AUTO) 5.3 X 10^3 (1.8-7.8)
[2021-03-15 20:50] LABS: ALANINE AMINOTRANSFERASE 17 U/L (0-55); ALKALINE PHOSPHATASE 83 U/L (40-136); BILIRUBIN,TOTAL 0.3 MG/DL (0.1-1.0); BUN/CREATININE RATIO 14; CALCIUM 9.6 MG/DL (8.5-10.1); CARBON DIOXIDE 21 MMOL/L (21-32); CHLORIDE 104 MMOL/L (98-107); CREATININE SERUM 0.97 MG/DL (0.60-1.30); GFR ESTIMATED > 60; GLUCOSE 119 MG/DL (70-105); POTASSIUM 4.3 MMOL/L (3.6-5.0); SODIUM 141 MMOL/L (135-145); TOTAL PROTEIN 6.7 GM/DL (6.4-8.2)
[2021-03-15 20:51] LABS: ALBUMIN 4.2 GM/DL (3.2-4.5)
[2021-03-15 21:33] VITALS: BP 121/72
== END 2021-03-15 21:33 | disposition home or self-care (01) ==
LOC: EDUNIT# 19:49 → ER FS 19:51
DX: R42 Dizziness and giddiness (principal); J44.9 Chronic obstructive pulmonary disease, unspecified; I25.2 Old myocardial infarction; Z95.5 Presence of coronary angioplasty implant and graft
CPT/HCPCS: 36415; 80053; 85025

== ENCOUNTER → 2021-03-25 | Outpatient (CLI) | payer MEDICAID, MEDICARE ==
--- NOTE | 2021-03-25 15:30 | Diagnostic Imaging Report ---
INDICATION: Right upper lobe mass. This study is performed for further evaluation. COMPARISON: No prior PET/CT studies are available for comparison. Correlation is made with a CT chest from 02/18/2021. TECHNIQUE: The serum blood glucose level at the time of injection was 110 mg/dL. The patient was administered 15.2 mCi of F-18 FDG intravenously in the right hand and PET imaging was performed from the top of the skull to the mid thighs. A noncontrast CT was also performed for attenuation correction and anatomic correlation. FINDINGS: There is symmetric activity throughout the brain. Physiologic activity throughout the soft tissues of the neck is noted. There is a hypermetabolic mass in the right upper lobe adjacent to the right hilum with an SUV max of 7.4. This corresponds to the CT abnormality. No other hypermetabolic foci in the chest are identified. There is physiologic activity throughout the GI and tracts of the abdomen and pelvis. No suspicious areas of hypermetabolism in the abdomen or pelvis are identified. IMPRESSION: Hypermetabolic right upper lobe mass, suspicious for primary lung neoplasm. No other abnormal regions of hypermetabolism are identified. Dictated by: Dictated on workstation # [id number]
== END ==
LOC: RAD 03-18 14:15
PROVIDERS: ATTEND Nurse Practitioner Family
DX: R91.8 Other nonspecific abnormal finding of lung field (principal)
CPT/HCPCS: 78815; A9552

== ENCOUNTER 2021-04-25 14:59 | Emergency (ER) | payer MEDICAID ==
[~2021-04-25] VITALS: Ht 195 cm; Wt 101.0 kg
[~2021-04-25 14:59] MED LIST changes: -RT-ALBUTEROL SULF 2.5 MG/3 ML PRE-MIX VIAL INH ONE
--- OUTSIDE RECORDS SUMMARY | 2021-04-25 15:05 | XMS REPORT | Encounter Summary ---
Author Author [facility] Organization [facility] Address Unknown Phone Unavailable Care Team Providers Care County Coroner Name Role Phone No Pcp, Na PCP Unavailable Encounter Details Care Team Description Date Type Department Carrie Palomino MD [address] [place] [address] 04/25/2021 Hosp Imaging: Main [facility] [place], Documentation [facility] Only [address] [facility] [address] [place] [address] Social History Date Tobacco Use Types Packs/Day Years Used Current Every Day Smoker Cigarettes 1.5 33 Smokeless Tobacco: Never Used Comments Alcohol Use Standard Drinks/Week No 0 (1 standard drink = 0.6 o z pure alcohol) Sex Assigned at Date Recorded Not on file documented as of this encounter Functional Status Date of Assessment Functional Status Response 08/03/2018 Does the patient have a hearing impairment: No 04/18/2018 Does the patient have a visual impairment: No 04/18/2018 Does the patient have impaired ambulation: No 04/18/2018 Does the patient have an activity of daily living No (ADL) impairment: 04/18/2018 Does the patient have an instrumental activity of No daily living (IADL) impairment: Date of Assessment Cognitive Status Response 04/18/2018 Does the patient have a cognitive impairment: No documented as of this encounter Progress Notes * Carrie Palomino MD - 04/25/2021 6:18 AM CDT Interventional Radiology Outpatient Procedure Review Assessment Reason for consult: Is the patient on anticoagulation? No Location for Biopsy Right Upper Lobe Pertinent Medical History: Positive PET scan Pre Procedure Labs Completed within previous 30 days? Yes (Comment: will be scanned into chart) History of Cancer: No Controller Repairer And Tester & Phone/Pager # Rebecca Moran (CASHIER RECEPTIONIST); [place] [facility] [place], [place] [address], Office: [phone], Is this order for a research study? No History of present illness: Bjorn Patterson Jr. is a 51 y.o. male patient with a history significant for p aranoid schizophrenia. Per pulmonary RN note 04/24/21, awaiting bronchoscopy guid ed lung biopsy versus CT guided. Awaiting referral to pulmonology. Will deny, pe nding pulmonary workup. Please place another order in the future if needed CT gu ided IR biopsy. Carrie Palomino MD documented in this encounter Plan of Treatment Not on filedocumented as of this encounter Visit Diagnoses Not on filedocumented in this encounter Additional Health Concerns Assessment Noted Time PHQ-9 Depression Total Score: 18 04/13/2018 1:14 PM CDT A fall risk assessment has been completed for the pat ient 04/18/2018 1:18 PM CDT A Body Mass Index follow-up plan has been documented for the patient 04/13/2018 2:23 PM CDT PHQ-2 Depression Total Score: 4 04/13/2018 1:14 PM CDT documented as of this encounter
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
--- OUTSIDE RECORDS SUMMARY | 2021-04-25 15:05 | XMS REPORT | Encounter Summary ---
Author Author [facility] Organization [facility] Address Unknown Phone Unavailable Care Team Providers Care Human Relations Manager Name Role Phone No Pcp, Na PCP Unavailable Encounter Details Care Team Description Date Type Department Derek Nation RN 04/25/2021 Telephone Interventional Radi ology: Main [place], [facility] [address] [facility] [address], [address] [place] [address] Social History Date Tobacco Use Types Packs/Day [...] impairment: No documented as of this encounter Miscellaneous Notes * Telephone Encounter - Derek Nation RN - 04/25/2021 10:40 AM CDT Spoke with Rebecca Moran APRN with [facility] in [place], [place] about treatment change on Patient. Rebecca will send a Referral to [facility] Bronchoscopy discussed in T[facility]ASURE on 04/24/2021 and fax referral to per Gustavo Honeycutt. documented in this encounter Plan of Treatment [...]
--- OUTSIDE RECORDS SUMMARY | 2021-04-25 15:05 | XMS REPORT | Clinical Summary ---
Author Author [facility] Organization [facility] Address Unknown Phone Unavailable Care Team Providers Care Sandblaster Glass Name Role Phone PCP Unavailable Allergies Not on File Medications Not on file Active Problems Not on file Social History Date Tobacco Use Types Packs/Day Years Used Never Assessed Sex Assigned at Date Recorded Not on file Last Filed Vital Signs Not on file Plan of Treatment Not on file Results Not on filefrom Last 3 Months
--- OUTSIDE RECORDS SUMMARY | 2021-04-25 15:05 | XMS REPORT | Encounter Summary ---
Author Author [facility] Organization [facility] Address Unknown Phone Unavailable Care Team Providers Care Behavioral Health Tech Name Role Phone No Pcp, Na PCP Unavailable Encounter Details Care Team Description Date Type Department 03/25/2021 Hospital Imaging: [facility], Encounter [facility] [address], [address] [place] [address] Social History Date Tobacco Use [...] impairment: No documented as of this encounter Medications at Time of Discharge Start Date End Date Medication Sig Dispensed Refills 08/06/2018 nicotine (NICODERM CQ Apply one 28 patch 2 STEP 1) 21 mg/day patch to top patchIndications: smoking of skin as cessation directed daily. Rotate patch location. 08/06/2018 nicotine (NICODERM CQ Apply one 28 patch 2 STEP 2) 14 mg/day patch to top patchIndications: smoking of skin as cessation directed daily. Rotate patch location. 08/05/[address] one 2 box 3 (NICORETTE) 4 mg gum each inside cheek (side of mouth) every 1 hour as needed. Chew to soften and park in mouth between lip and gum. documented as of this encounter Discharge Disposition Code Departure Means Destination Disposition Home Home or Self Care documented in this encounter Plan of Treatment Not on filedocumented as of this encounter Procedures Comments Procedure Name Priority Date/Time Associated Diag nosis NM PET/CT EXTERNAL Routine 03/25/2021 IMAGING 12:00 AM CDT documented in this encounter Results * NM PET/CT EXTERNAL IMAGING (03/25/2021 12:00 AM CDT) Specimen Narrative Performed At This order has been auto finalized and does not contain a result. documented in this encounter Visit Diagnoses Not on filedocumented [...]
--- OUTSIDE RECORDS SUMMARY | 2021-04-25 15:05 | XMS REPORT | Encounter Summary ---
Author Author [facility] Organization [facility] Address Unknown Phone Unavailable Care Team Providers Care Paraffiner Name Role Phone No Pcp, Na PCP Unavailable Reason for Referral * Radiology Services (Routine) Referred By Contact Referred To Contact Status Reason Specialty Diagnoses / Procedures Doctor, Miscellaneous New Request Radiology Diagnoses Malignant neoplasm of upper lobe of right lung (HCC) P rocedures IR CT GUIDED LUNG BIOPSY Electronically signed by Miscellaneous Doctor at Encounter Details Care Team Description Date Type Department Margot Mendieta, AMY Malignant neoplasm of upper lobe of righ t lung (HCC) (Primary Dx) 04/21/2021 Orders Only Interventional Radi ology: [facility], [address], [address] [place] [phone] Social History Date Tobacco Use Types [...] impairment: No documented as of this encounter Plan of Treatment Order Schedule Name Type Priority Associated Diag noses Expected: 04/28/2021 (Approximate), Expi res: 04/21/[address] GUIDED LUNG BIOPSY [facility] documented as of this encounter Visit Diagnoses Diagnosis Malignant neoplasm of upper lobe of rig ht lung (HCC) - Primary Malignant neoplasm of upper lobe, bronc hus or lung documented in this encounter Additional Health Concerns Assessment [...]
--- OUTSIDE RECORDS SUMMARY | 2021-04-25 15:05 | XMS REPORT | Encounter Summary ---
Author Author [facility] Organization [facility] Address Unknown Phone Unavailable Care Team Providers Care Chief Optometry Service Name Role Phone No Pcp, Na PCP Unavailable Reason for Visit * Reason Onset Date Comments Care Coordination 04/24/2021 Encounter Details Care Team Description Date Type Department Dimas Trujillo MD [address] [facility] [address] [place] [address] Care Coordination 04/24/2021 Telephone Pulmonology: [facility], [facility] [address], [address] [place] [address] Social History Date Tobacco Use [...] encounter Miscellaneous Notes * Telephone Encounter - Reji Honeycutt RN - 04/24/2021 8:38 AM CDT Per Antonio discussion, recommendation to send pt For navigation bronchoscopy inste ad of CT guided bx in IR. Will await referral to pulm. Reji Honeycutt RN documented in this encounter Plan of Treatment [...]
--- OUTSIDE RECORDS SUMMARY | 2021-04-25 15:05 | XMS REPORT | Encounter Summary ---
Author Author [facility] Organization [facility] Address Unknown Phone Unavailable Care Team Providers Care Housekeeping Coordinator Name Role Phone No Pcp, Na PCP Unavailable Reason for Visit * Reason Onset Date Comments Referral 04/17/2021 Encounter Details Care Team Description Date Type Department Margot Mendieta RN Referral 04/17/2021 Telephone Interventional Radi ology: [facility], [address], [address] [place] [phone] Social History Date Tobacco Use Types [...] encounter Miscellaneous Notes * Telephone Encounter - Margot Mendieta RN - 04/17/2021 9:43 AM CDT IR Scheduling received in inbound referral request order via fax yesterday for Varghese Patterson : 1970 from [place] via [facility] ([facility]) fo r a Lung Biopsy. However, the order could not be entered into the [facility] system sin ce the IR order form has not been completed. Today, I called their office at [phone] and was informed that Rebecca aranda (WOOL WASHER) is out of the office this week. So, I was transferred to Mayte (nurse) . I left a VM for Mayte (nurse). I explained that we could not take any action on the order that was sent to us. And, that we needed the [facility] order form complete d, signed by a physician, FORGER HELPER or PA and faxed back to us. I asked for her to luis l me back with an email or fax number to which I could send the [facility] order form. I requested a return phone call and left my phone number. IR Scheduling will continue to monitor this referral request. documented in this encounter Plan of Treatment [...]
[2021-04-25] MEDS ORDERED: RT-ALBUTEROL/IPRATROPIUM 3 ML (DUONEB) VIAL ONE (15:32)
[2021-04-25 15:39] LABS: BASOPHILS % (AUTO) 0 % (0-10); EOSINOPHILS # (AUTO) 0.1 10^3/uL (0.0-0.3); EOSINOPHILS % (AUTO) 1 % (0-10); HEMATOCRIT 51 % (40-54); HEMOGLOBIN 16.8 g/dL (13.3-17.7); LYMPHOCYTES % (AUTO) 20 % (12-44); MEAN CORPUSCULAR HEMOGLOBIN 31 pg (25-34); MEAN CORPUSCULAR HGB CONC 33 g/dL (32-36); MEAN CORPUSCULAR VOLUME 95 fL (80-99); MEAN PLATELET VOLUME 9.7 fL (9.0-12.2); MONOCYTES # (AUTO) 0.4 10^3/uL (0.0-1.0); MONOCYTES % (AUTO) 4 % (0-12); NEUTROPHILS # (AUTO) 7.1 10^3/uL (1.8-7.8); NEUTROPHILS % (AUTO) 74 % (42-75); PLATELET COUNT 180 10^3/uL (130-400); WHITE BLOOD COUNT 9.7 10^3/uL (4.3-11.0)
[2021-04-25] MEDS ORDERED: RT-ALBUTEROL/IPRATROPIUM 3 ML (DUONEB) VIAL INH ONE (15:45)
[2021-04-25 15:51] LABS: PROTHROMBIN TIME PATIENT 13.1 SEC (12.2-14.7)
[2021-04-25 16:01] VITALS: BP_SYST 110; BP_SYST 116; BP_SYST 122; BP_DIAS 60; BP_DIAS 73; BP_DIAS 83
[2021-04-25 16:12] LABS: ALBUMIN 4.6 GM/DL (3.2-4.5)
[2021-04-25 16:13] LABS: CHLORIDE 105 MMOL/L (98-107); POTASSIUM 4.3 MMOL/L (3.6-5.0); SODIUM 139 MMOL/L (135-145)
[2021-04-25 16:14] LABS: CALCIUM 10.4 MG/DL (8.5-10.1)
[2021-04-25 16:15] LABS: GLUCOSE 102 MG/DL (70-105); TOTAL PROTEIN 7.4 GM/DL (6.4-8.2)
[2021-04-25 16:16] LABS: CARBON DIOXIDE 24 MMOL/L (21-32)
[2021-04-25 16:17] LABS: BILIRUBIN,TOTAL 0.7 MG/DL (0.1-1.0)
[2021-04-25 16:18] LABS: ALKALINE PHOSPHATASE 71 U/L (40-136)
[2021-04-25 16:19] LABS: CREATININE SERUM 1.12 MG/DL (0.60-1.30); GFR ESTIMATED 69
[2021-04-25 16:20] LABS: BUN/CREATININE RATIO 18
[2021-04-25 16:21] LABS: ALANINE AMINOTRANSFERASE 19 U/L (0-55); MAGNESIUM 2.1 MG/DL (1.6-2.4)
--- NOTE | 2021-04-25 16:23 | Diagnostic Imaging Report ---
INDICATION: Chest pain. AP view of the chest is obtained. COMPARISON is made to study of 12/18/2020 Overall heart size and pulmonary vascularity are within normal limits. There is no evidence of pneumothorax or consolidation. A focal rounded lesion measuring approximately 2 x 3 cm is seen lateral to the right hilum. There is no evidence of pneumothorax or pleural fluid. IMPRESSION: Enlarging focal nodular region lateral to the right hilum could represent infiltrate or enlarging pulmonary mass. Clinical correlation is recommended. CT imaging could be performed for assessment. Dictated by: Dictated on workstation # [id number]
--- NOTE | 2021-04-25 16:42 | Diagnostic Imaging Report ---
PROCEDURE: CT chest without contrast. TECHNIQUE: Multiple contiguous axial images were obtained through the chest without the use of intravenous contrast. Auto Exposure Controls were utilized during the CT exam to meet ALARA standards for radiation dose reduction. INDICATION: Syncope, respiratory distress. FINDINGS: There is a 2.4 x 2.4 cm lobulated mass in the right upper lobe that has increased in size from an exam done on 02/18/2021. There are no infiltrates, effusions or pneumothoraces. There is no hilar or mediastinal lymphadenopathy. IMPRESSION: Enlarging right upper lobe mass consistent with neoplasm. Dictated by: Dictated on workstation # [id number]
--- NOTE | 2021-04-25 16:42 | Diagnostic Imaging Report ---
PROCEDURE: CT head, face, and cervical spine without contrast. TECHNIQUE: Multiple contiguous axial images were obtained through the head, neck, and facial bones without the use of intravenous contrast. Sagittal and coronal reformations through the cervical spine and facial bones were also performed. Auto Exposure Controls were utilized during the CT exam to meet ALARA standards for radiation dose reduction. INDICATION: Syncopal episode. Hit right side of face. Facial abrasion. Head and neck pain. COMPARISON: 02/14/2020. FINDINGS: CT head: The ventricles and cortical sulci are age-appropriate. There is no midline shift or mass-effect. No acute intracranial hemorrhage is seen. There is no CT evidence of acute territorial ischemia. No focal masses or collections are present. The calvarium is intact. CT face: No acute facial fractures are visualized. The mandible, zygomatic arches, and pterygoid plates are intact. The bilateral TMJ demonstrate normal articulation. No nasal bone fractures. The bony nasal septum is slightly deviated to the right without fracture. Mild mucosal thickening is seen in the maxillary sinuses. The mastoid air cells are well pneumatized. The globes and orbits are symmetric and unremarkable. No evidence of orbital rim fracture. CT cervical spine: No acute fracture or dislocation is seen in the cervical spine. No focal osseous lesions. Vertebral body heights are well-maintained. The craniocervical junction is well-maintained. Soft tissues of the neck are unremarkable. The included lung apices are clear. IMPRESSION: 1. No hemorrhage or focal intra-axial mass. No CT evidence of large acute territorial ischemia. 2. No acute fracture or dislocation in the cervical spine. 3. No acute facial fractures. Dictated by: Dictated on workstation # [id number]
[2021-04-25] MEDS ORDERED: ACHD5005 PO (17:00)
--- NOTE | 2021-04-25 17:02 | ED Syncope ---
General Chief Complaint: Dizziness/Syncope Stated Complaint: PASSED OUT, HEAD LAC Nursing Triage Note: ARRIVED VIA WC. STATES HE WAS DOING A PFT HERE AT THIS FACILITY AND PASSED OUT HITTING THE RIGHT SIDED OF HIS HEAD/FACE ON A TRASH CAN. ABRASION NOTED. PT DOES NOT REMEMBER INCIDENT. DENIES TAKING BLOOD THINNERS. Allergies and Home Medications Allergies Coded Allergies: ofloxacin (Verified Allergy, Mild, 07/17/19) acetaminophen (Verified Allergy, Unknown, Hives, 03/13/20) Penicillins (Verified Adverse Reaction, Unknown, Pt has received Ceftriaxone in the past, 07/17/19) aspirin (Verified Adverse Reaction, Unknown, 07/17/19) latex (Verified Adverse Reaction, Unknown, 07/17/19) Uncoded Allergies: TAPE (Allergy, Mild, 07/17/09) Home Medications Fenofibrate Nanocrystallized 145 Mg Tablet, 145 MG PO DAILY Prescribed by: CONNIE JARVIS on 12/18/20 1004 Hydrocodone/Acetaminophen 1 Each Tablet, 1 TAB PO Q6H PRN for PAIN-MODERATE (5- 7) Prescribed by: RIGOBERTO WARE on 04/25/21 1701 Oxycodone HCl/Acetaminophen 1 Each Tablet, 1 EACH PO Q4H PRN for PAIN-SEVERE (8- 10) Prescribed by: SERGE LIGHT on 02/10/21 1201 Past Kqcbgoi-Umdzlo-Gpkmhp Hx Patient Social History Smokeless Tobacco Frequency: Current Everyday User Substance use?: No Immunizations Up To Date Tetanus Booster (TDap): Less than 5yrs PED Vaccines UTD: Yes Seasonal Allergies Seasonal Allergies: No Past Medical History Surgeries: Yes (hernia repair, left testicle injury, brain surgery, cardiac stent) Cardiac, Coronary Stent, Orthopedic, Thyroidectomy Respiratory: Yes COPD Currently Using CPAP: No Currently Using BIPAP: No Cardiac: Yes (STENT) Heart Attack Neurological: Yes Seizure Disorder Reproductive Disorders: No Sexually Transmitted Disease: No HIV/AIDS: No Genitourinary: Yes Kidney Stones Gastrointestinal: No Musculoskeletal: No Endocrine: No HEENT: Yes Loss of Vision: Bilateral Cancer: Yes Pancreatic Psychosocial: Yes ("anger issues") Integumentary: No Blood Disorders: No Adverse Reaction/Blood Tranf: No (N/A) Family Medical History Stroke Physical Exam Vital Signs Vital Signs - First Documented 04/25/21 15:05 Temp 36.7 Pulse 69 Resp 16 B/P (MAP) 123/78 (93) Pulse Ox 100 O2 Delivery Room Air Capillary Refill : Less Than 3 Seconds Height, Weight, BMI Height: 6'4.00" Weight: 225lbs. 0.0oz. 102.698694vq; 26.00 BMI Method:Stated Progress/Results/Core Measures Results/Orders Lab Results Laboratory Tests Test 04/25/21 15:20 04/25/21 15:26 04/25/21 15:52 Range/Units White Blood Count 9.7 4.3-11.0 10^3/uL Red Blood Count 5.40 4.30-5.52 10^6/uL Hemoglobin 16.8 13.3-17.7 g/dL Hematocrit 51 40-54 % Mean Corpuscular Volume 95 80-99 fL Mean Corpuscular Hemoglobin 31 25-34 pg Mean Corpuscular Hemoglobin Concent 33 32-36 g/dL Red Cell Distribution Width 13.6 10.0-14.5 % Platelet Count 180 130-400 10^3/uL Mean Platelet Volume 9.7 9.0-12.2 fL Immature Granulocyte % (Auto) 0 % Neutrophils (%) (Auto) 74 42-75 % Lymphocytes (%) (Auto) 20 12-44 % Monocytes (%) (Auto) 4 0-12 % Eosinophils (%) (Auto) 1 0-10 % Basophils (%) (Auto) 0 0-10 % Neutrophils # (Auto) 7.1 1.8-7.8 10^3/uL Lymphocytes # (Auto) 2.0 1.0-4.0 10^3/uL Monocytes # (Auto) 0.4 0.0-1.0 10^3/uL Eosinophils # (Auto) 0.1 0.0-0.3 10^3/uL Basophils # (Auto) 0.0 0.0-0.1 10^3/uL Immature Granulocyte # (Auto) 0.0 0.0-0.1 10^3/uL Prothrombin Time 13.1 12.2-14.7 SEC INR Comment 1.0 0.8-1.4 Activated Partial Thromboplast Time 29 24-35 SEC Glucometer 112 H 70-110 MG/DL Sodium Level 139 135-145 MMOL/L Potassium Level 4.3 3.6-5.0 MMOL/L Chloride Level 105 98-107 MMOL/L Carbon Dioxide Level 24 21-32 MMOL/L Anion Gap 10 5-14 MMOL/L Blood Urea Nitrogen 20 H 7-18 MG/DL Creatinine 1.12 0.60-1.30 MG/DL Estimat Glomerular Filtration Rate 69 BUN/Creatinine Ratio 18 Glucose Level 102 70-105 MG/DL Calcium Level 10.4 H 8.5-10.1 MG/DL Corrected Calcium 8.5-10.1 MG/DL Magnesium Level 2.1 1.6-2.4 MG/DL Total Bilirubin 0.7 0.1-1.0 MG/DL Aspartate Amino Transf (AST/SGOT) 14 5-34 U/L Alanine Aminotransferase (ALT/SGPT) 19 0-55 U/L Alkaline Phosphatase 71 40-136 U/L Myoglobin 71.5 10.0-92.0 NG/ML Troponin I < 0.028 <0.028 NG/ML Total Protein 7.4 6.4-8.2 GM/DL Albumin 4.6 H 3.2-4.5 GM/DL My Orders Orders - RIGOBERTO BOYER MD Cbc With Automated Diff (04/25/21 15:14) Magnesium (04/25/21 15:14) Chest 1 View, Ap/Pa Only (04/25/21 15:14) Ekg Tracing (04/25/21 15:14) Comprehensive Metabolic Panel (04/25/21 15:14) Myoglobin Serum (04/25/21 15:14) Protime With Inr (04/25/21 15:14) Partial Thromboplastin Time (04/25/21 15:14) O2 (04/25/21 15:14) Monitor-Rhythm Ecg Trace Only (04/25/21 15:14) Ed Iv/Invasive Line Start (04/25/21 15:14) Troponin I (04/25/21 15:14) Orthostatic Vital Signs (Adult (04/25/21 15:17) Ct Head/Face/Cervical Wo (04/25/21 15:31) Ct Chest Wo (04/25/21 15:31) Albuterol/Ipra Inhalation Soln (Duoneb I (04/25/21 15:45) Svn Small Volume Nebulizer (04/25/21 15:33) Albuterol/Ipra Inhalation Soln (Duoneb I (04/25/21 15:32) Medications Given in ED Current Medications Medications Dose Ordered Sig/Alis Route Start Time Stop Time Status Last Admin Dose Admin Albuterol/ Ipratropium 3 ml ONCE ONCE INH 04/25/21 15:45 04/25/21 15:46 DC 04/25/21 15:35 3 ML Vital Signs/I&O 04/25/21 04/25/21 04/25/21 15:05 16:01 17:15 Temp 36.7 Pulse 69 71 78 71 81 Resp 16 96 B/P (MAP) 123/78 (93) 110/60 (77) 125/71 122/73 (89) 116/83 (94) Pulse Ox 100 96 O2 Delivery Room Air Room Air Blood Pressure Mean: 94 FSBG Bedside Testing Finger Stick Blood Glucose: 112 Initial ECG Impression Date: Apr 25, 2021 Initial ECG Impression Time: 15:18 Initial ECG Rate: 78 Initial ECG Rhythm: Normal Sinus Comment Sinus rhythm with no ST elevation or depression. Left anterior fascicular block. No axis deviation. Departure Impression Primary Impression: Syncope Qualified Codes: R55 - Syncope and collapse Additional Impressions: COPD exacerbation Facial contusion Qualified Codes: S00.83XA - Contusion of other part of head, initial encounter Disposition: 01 HOME, SELF-CARE Condition: Improved Departure-Patient Inst. Decision time for Depature: 16:57 Referrals: DARREN CARNEY MD (PCP/Family) Primary Care Physician Patient Instructions: Syncope (Fainting) (DC) Add. Discharge Instructions: Drink plenty of clear liquids to stay well-hydrated. Use your medications and inhalers as previously prescribed. Follow-up with your primary care provider soon as possible. Since you occasionally have some lightheadedness upon standing, speak with your primary care provider about evaluating your carotid arteries with ultrasound if this has not been previously performed. Go home and rest. Avoid loud noises, strenuous activity, or other activity that could exacerbate head injury for the next couple of days. Call with questions or concerns. Return to the ER if you have worsening symptoms. All discharge instructions reviewed with patient and/or family. Voiced khanhan julissa. Scripts Hydrocodone/Acetaminophen (Hydrocodone-Acetamin 5-325 mg) 1 Each Tablet 1 TAB PO Q6H PRN for PAIN-MODERATE (5-7), #5 TAB Prov: RIGOBERTO BOYER MD 04/25/21 RIGOBERTO BOYER MD Apr 25, 2021 17:02
[2021-04-25 17:15] VITALS: BP 125/71
== END 2021-04-25 17:09 | disposition home or self-care (01) ==
LOC: EDUNIT# 14:59 → ER 15:00
DX: S00.93XA Contusion of unspecified part of head, initial encounter (principal); G40.909 Epilepsy, unspecified, not intractable, without status epilepticus; J44.1 Chronic obstructive pulmonary disease with (acute) exacerbation; I25.2 Old myocardial infarction; F17.200 Nicotine dependence, unspecified, uncomplicated; Z95.5 Presence of coronary angioplasty implant and graft; Z88.6 Allergy status to analgesic agent; W01.198A Fall on same level from slipping, tripping and stumbling with subsequent striking against other object, initial encounter
CPT/HCPCS: 70450; 70486; 71045; 71250; 72125; 80053; 82947; 83735; 83874; 84484; 85025; 85610; 85730; 93041; 94640; 99284; L0150; 36415

== ENCOUNTER → 2021-04-25 | Outpatient (CLI) | payer MEDICAID ==
[~2021-04-25] MED LIST changes: +RT-ALBUTEROL SULF 2.5 MG/3 ML PRE-MIX VIAL INH ONE
== END ==
LOC: RT 14:30
PROVIDERS: ATTEND Nurse Practitioner Family
DX: J44.9 Chronic obstructive pulmonary disease, unspecified (principal)
CPT/HCPCS: 94060; 94726; 94729

== ENCOUNTER 2021-05-13 12:12 | Emergency (ER) | payer MEDICAID ==
[~2021-05-13] VITALS: Ht 195 cm; Wt 103.0 kg
--- OUTSIDE RECORDS SUMMARY | 2021-05-13 12:17 | XMS REPORT | Encounter Summary ---
Author Author [facility] Organization [facility] Address Unknown Phone Unavailable Care Team Providers Care Tractor Distributor Name Role Phone No Pcp, Na PCP Unavailable Reason for Visit * Auth/Cert Referred By Contact Referred To Contact Status Reason Specialty Diagnoses / Procedures Diagnoses Mass of upper lobe of right lung Mass of upper lobe of right lung [R91.8] P rocedures IN BRNCHSC INCL FLUOR GDNCE DX W/CELL WASHG SPX IN BRONCHOSCOPY W/CPTR-ASST IMAGE-GUIDED NAVIGATION IN BRNCHSC W/BRNCL ALVEOLAR LAVAGE IN BRNCHSC EBUS GUIDED SAMPL 3/> NODE STATION/STRUX IN BRONCHOSCOPY W/TRANSBRONCHIAL LUNG BX 1 LOBE IN BRONCHOSCOPY NEEDLE BX TRACHEA MAIN STEM&/BRON BRONCHOSCOPY DIAGNOSTIC WITH/ WITHOUT CELL WASHING - FLEXIBLE BRONCHOSCOPY WITH IMAGE - GUIDED NAVIGATION - FLEXIBLE BRONCHOSCOPY WITH BRONCHIAL ALVEOLAR LAVAGE - FLEXIBLE BRONCHOSCOPY WITH ENDOBRONCHIAL ULTRASOUND GUIDED TRANSTRACHEAL/ TRANSBRONCHIAL SAMPLING - 3 OR MORE MEDIASTINAL/ HILAR LYMPH NODE STATIONS/ STRUCTURE - FLEXIBLE BRONCHOSCOPY WITH TRANSBRONCHIAL LUNG BIOPSY - FLEXIBLE - SINGLE LOBE BRONCHOSCOPY WITH TRANSBRONCHIAL NEEDLE ASPIRATION AND BIOPSY TRACHEA/ MAIN STEM/ LOBAR BRONCHUS - FLEXIBLE Encounter Details Care Team Description Date Type Department Jass Vasquez MD [address] [facility] [address] [place] [address] BRONCHOSCOPY DIAGNOSTIC WITH/ WITHOUT CE LL WASHING - FLEXIBLE 05/09/2021 Surgery Operating Room: [facility], [facility] [address] [facility] [address] [place] [address] Surgery Details Trauma Case? Date/Time Status Location OR Service Patient Class Case Class Case Type 05/09/21 Posted [facility] OR OR 18 Pulmonary Outpatient Electi ve - 11:15 AM Medicine Surgery Treating conditions that are not life or limb threatenin g Panel 1 Procedure LRB Anes Op Region Wound Class Com ments BRONCHOSCOPY DIAGNOSTIC N/A Defer to Bronchus NA WITH/ WITHOUT CELL Anesthesia WASHING - FLEXIBLE BRONCHOSCOPY WITH IMAGE - N/A Defer to Bronchus NA GUIDED NAVIGATION - Anesthesia FLEXIBLE BRONCHOSCOPY WITH N/A Defer to Bronchus NA BRONCHIAL ALVEOLAR LAVAGE Anesthesia - FLEXIBLE BRONCHOSCOPY WITH N/A Defer to Bronchus NA ENDOBRONCHIAL ULTRASOUND Anesthesia GUIDED TRANSTRACHEAL/ TRANSBRONCHIAL SAMPLING - 3 OR MORE MEDIASTINAL/ HILAR LYMPH NODE STATIONS/ STRUCTURE - FLEXIBLE BRONCHOSCOPY WITH N/A Defer to Bronchus NA TRANSBRONCHIAL LUNG Anesthesia BIOPSY - FLEXIBLE - SINGLE LOBE BRONCHOSCOPY WITH N/A Defer to Bronchus NA TRANSBRONCHIAL NEEDLE Anesthesia ASPIRATION AND BIOPSY TRACHEA/ MAIN STEM/ LOBAR BRONCHUS - FLEXIBLE Panel Surgeon Surgeon Role Service 1 Tiffany Shankar MD Fellow Pulmonary Medicine 1 Jass Vasquez MD Primary Pulmonary Medi cine Social History Date Tobacco Use Types Packs/Day Years Used Current Every Day Smoker Cigarettes 1.5 33 Smokeless Tobacco: Never Used Comments Alcohol Use Standard Drinks/Week No 0 (1 standard drink = 0.6 o z pure alcohol) Sex Assigned at Date Recorded Not on file Date Recorded COVID-19 Exposure Response 05/09/2021 10:53 AM CDT In the last month, have you been in contact with No / Unsure someone who was confirmed or suspected to have Coronavirus / COVID-19? documented as of this encounter Last Filed Vital Signs Reading Time Taken Comments Vital Sign 117/79 05/09/2021 10:55 AM CDT Blood Pressure 78 05/09/2021 10:55 AM CDT Pulse 36.8 C (98.3 F) 05/09/2021 10:55 AM CDT Temperature - - Respiratory Rate 98% 05/09/2021 10:55 AM CDT Oxygen Saturation - - Inhaled Oxygen Concentration 104 kg (229 lb 4.5 oz) 05/09/2021 10:55 AM CDT Weight 195.6 cm (6' 5") 05/09/2021 10:55 AM CDT Height 27.19 05/09/2021 10:55 AM CDT Body Mass Index documented in this encounter Functional Status Date of Assessment [...] Date End Date Medication Sig Dispensed Refills albuterol sulfate (PROAIR Inhale 2 0 HFA) 90 mcg/actuation HFA puffs by aerosol inhaler mouth into the lungs every 6 hours as needed for Wheezing or Shortness of Breath. Shake well before use. 08/06/2018 nicotine (NICODERM CQ Apply one 28 [...] Discharge Disposition Code Departure Means Destination Disposition Wheelchair Home or Self Care documented in this encounter H&P Notes * Jass Vasquez MD - 05/09/2021 11:15 AM CDT History and Physical Update Note Allergies: Gabapentin, Adhesive tape (rosins), Ofloxacin, and Latex Lab/Radiology/Other Diagnostic Tests: 24-hour labs: No results found for this visit on 05/09/21 (from the past 24 nguyen r(s)). Point of Care Testing: (Last 24 hours): I have examined the patient, and there are no significant changes in their condi tion, from the previous H&P performed on 05-06-21. Jass Vasquez MD Pager [phone] * Tiffany Shankar MD - 05/06/2021 4:00 PM CDT Subjective: History of Present Illness Bjorn Patterson Jr. is a 51 y.o. male with PMH of HLD, COPD, CAD, reported rec ent diagnosis of CHF, history of seizures (not on AEDs), ?history of pancreatic cancer in 2013, and current tobacco abuse referred for a PET avid RUL mass. Patient was referred from Pulmonary in [place], [place] for a PET avid RUL mas s. He was initially found to have a RUL lesion in 01/[address] chest was ob tained after sustaining an injury to his right chest wall. That CT demonstrated a RUL mass and he was then referred for a PET scan that showed increased FDG upt [place]. The initial plan was to proceed with IR CT guided biopsy but patient was ul timately referred to Pulmonary. Patient reports a 60 lb unintentional weight loss over the past 2-3 months. He d enies F/C or night sweats. He reports pleuritic chest pain for the past 3 months but this seems to be related to a recent chest wall injury. He has significant dyspnea on exertion. He uses Albuterol and Symbicort that help to a degree. Says he could not walk a flight of stairs without having to stop to take a break and catch his breath. He has a chronic cough and has coughed up what looks like dri ed blood at times. No hemoptysis with bright red blood. Has coughed so hard at t imes that it has led to near syncope. Reports recent PFTs that led to a near syn copal episode. He is a current smoker and currently smokes 1/2 ppd. He is working to cut down a nd ultimately quit. He used to smoke 1.5-2 ppd and has smoked for at least 30 ye ars. He has a PMH of HLD and is prescribed but not currently taking Lipitor. He denie s a history of COPD but takes Albuterol and Symbicort. It sounds like he has a h istory of CAD with ?PCI but is not taking any blood thinners. States he was rece ntly diagnosed with CHF but is not taking any diuretics. Outside records also [facility] note of a history of pancreatic cancer in 2013. Has undergone several procedures in the past and denies any issues with anesthes ia. No history of MH. History grandmother had a history of lung cancer. No other family history of kiana g cancer. Personally reviewed outside records, external imaging, and imaging reports. Review of Systems Constitutional: Positive for unexpected weight change. HENT: Negative. Eyes: Negative. Respiratory: Positive for cough and shortness of breath. Cardiovascular: Positive for chest pain (right pleuritic and chest wall pain). Gastrointestinal: Negative. Genitourinary: Negative. Musculoskeletal: Negative. Skin: Negative. Neurological: Positive for dizziness, syncope and light-headedness. Objective: nicotine (NICODERM CQ STEP 1) 21 mg/day patch Apply one patch to top of skin as directed daily. Rotate patch location. nicotine (NICODERM CQ STEP 2) 14 mg/day patch Apply one patch to top of skin as directed daily. Rotate patch location. nicotine polacrilex (NICORETTE) [address] one each inside cheek (side o f mouth) every 1 hour as needed. Chew to soften and park in mouth between lip an d gum. There were no vitals filed for this visit. There is no height or weight on file to calculate BMI. Physical Exam Vitals reviewed. Constitutional: General: He is not in acute distress. HENT: Head: Normocephalic and atraumatic. Mouth/Throat: Mouth: Mucous membranes are moist. Pharynx: Oropharynx is clear. No oropharyngeal exudate. Eyes: Extraocular Movements: Extraocular movements intact. Pupils: Pupils are equal, round, and reactive to light. Cardiovascular: Rate and Rhythm: Normal rate and regular rhythm. Pulmonary: Effort: Pulmonary effort is normal. Breath sounds: Rhonchi present. No wheezing or rales. Musculoskeletal: General: No swelling. Normal range of motion. Cervical back: Normal range of motion. Skin: Findings: No rash. Neurological: General: No focal deficit present. Mental Status: He is alert. CT Chest 02/18/2021 (personally reviewed) - 3.2 x 1.7cm RUL mass PET (personally reviewed) - Hypernetambolic RUL mass, no obvious PET avid LAD Assessment and Plan: Bjorn Patterson Jr. is a 51 y.o. male with PMH of HLD, COPD, CAD, reported rec ent diagnosis of CHF, history of seizures (not on AEDs), ?history of pancreatic cancer in 2013, and current tobacco abuse referred for a PET avid RUL mass. #RUL mass, PET avid, 3.2 x 1.7 cm, suspicious for primary lung malignancy #Current tobacco abuse #COPD Patient presents to Pulmonary clinic for evaluation of PET avid RUL mass. This w as initially noted on CT chest in 01/2021 and then demonstrated PET avidity in 2020. Given imaging characteristics and significant history of tobacco abuse, th is is highly suspicious for a primary lung malignancy. He did not appear to have any obvious PET avid LAD on imaging. We discussed in detail today the imaging f indings and the different options for diagnosis. He had a lot of questions regar ding EBUS + navigational bronchoscopy with biopsy vs. percutaneous biopsy. We di scussed the higher potential for pneumothorax with a percutaneous approach and t hat an EBUS + navigational approach would likely allow for a high yield (given a irway leading to a central lesion), a safer approach to diagnosis, and the abili ty to stage. He reports a new diagnosis of "CHF" but he doesn't have any indicat ion of any acute or decompensated cardiac condition. He recently underwent PFTs outside of and we will likely need to obtain pending biopsy results so as to inform potential treatment options. - Proceed with EBUS with navigational bronchoscopy with biopsies of RUL nodule. - Reviewed PMH and medications in detail. No medications need to be held or adju sted prior to procedure. No history of anesthesia complications and no contraind ications to general anesthesia. - Encouraged continued efforts towards smoking cessation. - Will need to obtain PFTs from outside Pulmnologist. Seen and discussed with Dr. Vasquez Plan for EBUS with navigational bronchoscopy with biopsy on 05/09 Tiffanycarmen Shankar MD ATTESTATION I personally performed the cortez portions of the E/M visit, discussed case with Dr Valerie Shankar, [facility] fellow and concur with our fellow's documentation of history, physi luis exam, assessment, and treatment plan unless otherwise noted. Total time spe nt reviewing referring documents, radiographs, face to face time with patient, dalila tristaneloping plan and answering questions 72 minutes. DOS 9-7-21 Staff name: Jass Vasquez MD Date: 05/08/2021 Fox Maintenance / Prevention There is no immunization history on file for this patient. Patient Instructions 1. COVID Testing You are schedule on May 06 at 5:20pm 2. Pre-procedure Instructions - You have been scheduled for a Bronchoscopy on May 09, with a beth ck in time of 8:45am and procedure time of 11:15am. This will be at the [facility] at [address] [place] [address]. - Nothing to eat or drink after midnight the day of your procedure. - The day of your procedure: - you can take your regular medications with a sip of water in the morning. - If you are taking blood thinners, oral diabetes medications, or insulin you wi ll need to confirm dosing with your provider. - you will need to check in at admitting, just inside the [facility] entrance , located at [address] [place] [address], two and a half (2 1/2 ) hours before your procedure time. There is a parking garage (P3) located acros s from the entrance. - you will need a log driver to and from the procedure. Only one (1) person is all owed to accompany you. Results are generally available 3 - 5 business days after the procedure and we w ill contact you to discuss the results. Due to the enactment of The 21st Centur y Cures Act (Cures Act), results from your procedure are made available to you i mmediately and are not reviewed prior to their release. You will receive a phon e call from someone with the pulmonary team to discuss the results after they torres ve been reviewed. This is generally 24 hours to 48 hours after the results have been released. After your procedure, please contact Tenisha Burleson RN with signs and symptoms of worsening condition: increased shortness of breath increased coughing new or increased productive cough with thick &/ or abnormal colored sputum bloody sputum chest tightness chest pain wheezing fever, chills, or night sweats - For URGENT issues after business hours, weekends, or holidays: Call and request for the Quality Assurance Lab Technician to be paged. - To cancel, change, or schedule a clinic appointment: Call our [facility] [place] [facility] Nurse Coordinator-Tenisha Burleson RN - Office: [phone] fa x: [phone] documented in this encounter Plan of Treatment Date/Time Name Type Priority Associated Diag noses 05/09/2021 1:15 PM CDT CYTOLOGY FNA LYMPH NODE Pathology Routine 05/09/2021 1:30 PM CDT PATHOLOGY SURGICAL < 5 Pathology Routine SPECIMENS documented as of this encounter Procedures Comments Procedure Name Priority Date/Time Associated Diag nosis BRONCHOSCOPY WITH 05/09/2021 Mass of upper lobe of TRANSBRONCHIAL NEEDLE 12:31 PM CDT right lung ASPIRATION AND BIOPSY TRACHEA/ MAIN STEM/ LOBAR BRONCHUS - FLEXIBLE BRONCHOSCOPY WITH 05/09/2021 Mass of upper lobe of TRANSBRONCHIAL LUNG 12:31 PM CDT right lung BIOPSY - FLEXIBLE - SINGLE LOBE BRONCHOSCOPY WITH 05/09/2021 Mass of upper lobe of ENDOBRONCHIAL ULTRASOUND 12:31 PM CDT right lung GUIDED TRANSTRACHEAL/ TRANSBRONCHIAL SAMPLING - 3 OR MORE MEDIASTINAL/ HILAR LYMPH NODE STATIONS/ STRUCTURE - FLEXIBLE BRONCHOSCOPY WITH 05/09/2021 Mass of upper lobe of BRONCHIAL ALVEOLAR LAVAGE 12:31 PM CDT right lung - FLEXIBLE BRONCHOSCOPY WITH IMAGE - 05/09/2021 Mass of upp er lobe of GUIDED NAVIGATION - 12:31 PM CDT right lung FLEXIBLE BRONCHOSCOPY DIAGNOSTIC 05/09/2021 Mass of upper lobe of WITH/ WITHOUT CELL 12:31 PM CDT right lung WASHING - FLEXIBLE CT CHEST WO CONTRAST STAT 05/09/2021 12:30 PM CDT BRONCHOSCOPY 05/09/2021 11:57 AM CDT documented in this encounter Results * CT CHEST WO CONTRAST (05/09/2021 12:30 PM CDT) Specimen Impressions Performed At Lobulated right upper lobe mass occluding the right u pper lobe posterior [facility] segmental bronchus and abutting the rig ht major fissure, suspicious for primary lung cancer. Tiny adjacent satellite nodules may be metastases or post obstructive bronchiolitis. One 2 mm nodule in the r ight upper lobe is more remote from the mass and is indeterminate between a met astasis or a benign nodule. Prominent lower right paratracheal was not FDG avid on prior PET scan and is likely reactive. No lymphadenopathy. Findings of respiratory bronchiolitis f rom cigarette smoking. Mildly dilated aortic root and proximal ascending aorta measuring up to 4.4 cm. Finalized by Nishi Knight M.D. on 1:13 PM. Dictated by Nishi Knight M.D. on 05/09/2021 12:51 PM. Narrative Performed At CT Chest [facility] Clinical Indication: Right upper lobe l akash mass Technique: Multiple contiguous axial CT images were obtained through the chest without IV contrast. Post processing coronal and sagittal reconstruction images were made from the axial images. High-resolution inspiratory and expiratory views were obtained. Comparison: PET scan March 25, 2021, CT chest February 18, 2021 Findings: Axilla, Mediastinum and Deb: Stable pr ominent lower right paratracheal lymph node which was not FDG avid on prior PE T scan (series 5 image 51). No enlarged lymph nodes. Heart and Great Vessels: Normal heart s ize. No pericardial effusion. Mildly dilated aortic root and proximal ascend ing aorta measuring 4.4 cm at the sinuses of Valsalva and 4.0 cm just above the s inotubular junction. Separate arch origin of the left vertebral artery. Lungs and Pleura: Secretions in the rig ht upper lobe bronchus and bronchus intermedius. Mild areas of bronchial wa ll thickening and varicose bronchiectasis. Right upper lobe mass w ith lobulated margins, occluding the right upper lobe posterior segment bron chus, measures 3.8 x 2.3 cm (series 5 image 54). Inferior portion of the mass abuts the right major fissure. Tiny surrounding satellite nodules in the ri ght upper lobe. Small 2 mm right upper lobe nodule is more remote from the dom inant mass (series 5 image 44). Subtle groundglass attenuation and centrilobul ar nodularity likely reflect respiratory bronchiolitis from cigarette smoking. N o pleural effusion. No significant air trapping on expiratory images. Chest Wall and Osseous Structures: No d estructive bone lesion. Visualized Upper Abdomen: Borderline he patic steatosis. Procedure Note Interface, Radiant Results - 05/09/2021 1:[address] Chest Clinical Indication: Right upper lobe lung mass Technique: Multiple contiguous axial CT images were obtained through the chest without IV contrast. Post processing coronal and sagittal reconstruction images were made from the axial images. High-resolution inspiratory and expiratory views were obtained. Comparison: PET scan March 25, 2021, CT chest February 18, 2021 Findings: Axilla, Mediastinum and Deb: Stable prominent lower right paratracheal lymph node which was not FDG avid on prior PET scan (series 5 image 51). No enlarged lymph nodes. Heart and Great Vessels: Normal heart size. No pericardial effusion. Mildly dilated aortic root and proximal ascending aorta measuring 4.4 cm at the sinuses of Valsalva and 4.0 cm just above the sinotubular junction. Separate arch origin of the left vertebral artery. Lungs and Pleura: Secretions in the right upper lobe bronchus and bronchus intermedius. Mild areas of bronchial wall thickening and varicose bronchiectasis. Right upper lobe mass with lobulated margins, occluding the right upper lobe posterior segment bronchus, measures 3.8 x 2.3 cm (series 5 image 54). Inferior portion of the mass abuts the right major fissure. Tiny surrounding satellite nodules in the right upper lobe. Small 2 mm right upper lobe nodule is more remote from the dominant mass (series 5 image 44). Subtle groundglass attenuation and centrilobular nodularity likely reflect respiratory bronchiolitis from cigarette smoking. No pleural effusion. No significant air trapping on expiratory images. Chest Wall and Osseous Structures: No destructive bone lesion. Visualized Upper Abdomen: Borderline hepatic steatosis. IMPRESSION Lobulated right upper lobe mass occluding the right upper lobe posterior segmental bronchus and abutting the right major fissure, suspicious for primary lung cancer. Tiny adjacent satellite nodules may be metastases or post obstructive bronchiolitis. One 2 mm nodule in the right upper lobe is more remote from the mass and is indeterminate between a metastasis or a benign nodule. Prominent lower right paratracheal was not FDG avid on prior PET scan and is likely reactive. No lymphadenopathy. Findings of respiratory bronchiolitis from cigarette smoking. Mildly dilated aortic root and proximal ascending aorta measuring up to 4.4 cm. Finalized by Nishi Knight M.D. on 05/09/2021 1:13 PM. Dictated by Nishi Knight M.D. on 05/09/2021 12:51 PM. Performing Organization Address City/State/ZIP Code P hope Number [facility] * BRONCHOSCOPY (05/09/2021 11:57 AM CDT) Provation Patient Name: Bjorn KUMARI OTHER Report Procedure Date: 05/09/2021 RESULTS 11:57 AM CSN: [id number] Date of : 1970 Gender: Male Attending Physician: Jass Vasquez MD Procedure: Bronchoscopy Indications: Right upper lobe mass Providers: Jass Vasquez MD (Doctor), Tiffany Shankar MD (Fellow), Akbar Valderrama RN (Nurse), Bryan Munroe (Yarder Boss) Referring Physician: Rebecca Rea Medications: General Anesthesia Complications: No immediate complications Findings: An endobronchial ultrasound endoscope was utilized in order to assist with fine needle aspiration and/or characterization of lymph node stations 1R, 1L, 2R, 2L, 4R, 4L, 10R, 10L. 11Rs, 11Ri, 11L and 7. Only the following lymph node stations were determined to be larger than 5mm on EBUS and/or metabolically active on PET then sampled using EBUS FNA: Lymph Nodes: Lymph node sizing was performed via endobronchial ultrasound. Sampling by transbronchial needle aspiration was also performed using an Olympus nChanneliShot 21 gauge needle in the right superior interlobar region (level 11Rs) and sent for routine cytology. - The 11Rs (superior interlobar) node was 17 mm by EBUS. Four samples with the needle were obtained. Lymph Nodes: Rapid On-Site Evaluation (CORAL): - 11Rs (superior interlobar): preliminary cytology was suggestive of benign-appearing lymphoid tissue (final results are pending). Endobronchial biopsies of a mass were performed in the posterior segment of the right upper lobe using a forceps and sent for histopathology examination. 7 were obtained. Veran was used to map the RUL mass but the mass was noted to be visible endobroncially and Veran was not needed to guide the endobronchial biopsy. Respiratory tract: The larynx is normal. The vocal cords appear normal. The subglottic space is normal. The trachea is of normal caliber. The chi is sharp. The entire tracheobronchial tree was examined to at least the first subsegmental level. Bronchial mucosa and anatomy are normal; there are no endobronchial lesions and no secretions, except in the posterior segment of the right upper lobe in which there was a visible endobroncial lesion. Impression: - Right upper lobe mass - Lymph node sizing and sampling was performed. - Rapid On-Site Evaluation (CORAL): Preliminary cytology was suggestive of the following: - 11Rs (superior interlobar): of benign-appearing lymphoid tissue. (Final results are pending). - An endobronchial biopsy was performed. - Airway inspection was performed which demonstrated an endobroncial lesion in the posterior segment of the RUL. Estimated Blood Loss: Estimated blood loss: none. Recommendation: - Await biopsy and cytology results. Scope In: 12:43:14 PM Scope Out: 1:14:27 PM Attending Participation: I was present and participated during the entire procedure, including non-cortez portions. MD Jass Lee MD 05/09/2021 4:29:09 PM The attending physician has electronically signed and finalized this document. MD Tiffany Vazquez MD 05/09/2021 1:33:40 PM Number of Addenda: 0 Note Initiated On: 05/09/2021 11:57 AM Specimen Performing Organization Address City/State/ZIP Code P hope Number [facility] documented in this encounter Visit Diagnoses Diagnosis Mass of upper lobe of right lung documented in this encounter Administered Medications Action Date Dose Rate Site Medication Order MAR Action acetaminophen (TYLENOL) tablet 650 mg 650 mg, Oral, ONCE PRN, 1 dose, Startin g on Wed05/09/21 at 1308, Until Wed05/09/21 at 1632, Pain non-opioid: may b e used alone or in combination with opioi d analgesia, TOTAL ACETAMINOPHEN DOSE NOT TO EXCEED 4GM DAILY, PACU (only) fentaNYL citrate PF (SUBLIMAZE) injection 25 mcg 25 mcg, Intravenous, EVERY 5 MIN PRN, Starting on Wed05/09/21 at 1308, Until Wed05/09/21 at 1632, Pain Injectable, For Pain Score < 4, For Pain Score < 4 Maximum total dose of 200 mcg Hold for RR < 10, PACU (only) 05/09/2021 12:30 PM CDT sodium chloride 0.9 % infusion Infusion 1,000 mL, Intravenous, at 25 mL/hr, Restarted CONTINUOUS, Starting on Wed05/09/21 at 1045, Until Wed05/09/21 at 1632, Pre-Op 25 mL/hr Given - New Bag 05/09/2021 11:02 AM CDT documented in this encounter Historical Medications * This list may reflect changes made after this encounter. Start Date End Date Medication Sig Dispensed Refills albuterol sulfate (PROAIR Inhale 2 0 HFA) 90 mcg/actuation HFA puffs by aerosol inhaler mouth into the lungs every 6 hours as needed for Wheezing or Shortness of Breath. Shake well before use. added in this encounter Active and Recently Administered Medications Times are shown in CDT. 05/08/2021 05/09/2021 Medication Order 05/07/2021 1102 (Given - New Bag - Provider: Adele Dupree RN)1217 (Anesthesia Continue from Pre-Post - Provider: Jass Vasquez MD)1229 (Infusion Paused - Provider: SAVANAH Sheldon - Comment: Switch to gravity)1230 (Infusion Restarted - Provider: SAVANAH Sheldon)1320 (Infusion Stopped - Provider: SAVANAH Sheldon) sodium chloride 0.9 % infusion 1,000 mL, Intravenous, at 25 mL/hr, CONTINUOUS, Starting on Wed05/09/21 at 1045, Until Wed05/09/21 at 1632, Pre-Op 05/08/2021 05/09/2021 Medication Order 05/07/2021 acetaminophen (TYLENOL) tablet 650 mg 650 mg, Oral, ONCE PRN, 1 dose, Startin g on Wed05/09/21 at 1308, Until Wed05/09/21 at 1632, Pain non-opioid: may b e used alone or in combination with opioi d analgesia, TOTAL ACETAMINOPHEN DOSE NOT TO EXCEED 4GM DAILY, PACU (only) fentaNYL citrate PF (SUBLIMAZE) injection 25 mcg 25 mcg, Intravenous, EVERY 5 MIN PRN, Starting on Wed05/09/21 at 1308, Until Wed05/09/21 at 1632, Pain Injectable, For Pain Score < 4, For Pain Score < 4 Maximum total dose of 200 mcg Hold for RR < 10, PACU (only) 1312 (Given - Provider: SAVANAH Truong) ondansetron (ZOFRAN) injection 4 mg (COMPLETED) 4 mg, Intravenous, ONCE PRN, 1 dose, Starting on Wed05/09/21 at 1308, Until Wed05/09/21 at 1312, Other..., nausea/vomiting, First line agent., DO NOT ADMINISTER if given within the last six hours., PACU (only) documented in this encounter Orders First Ordered Date Medications Ordered That Might Not Have Count Last Ordered Date Been Administered acetaminophen (TYLENOL) tablet 650 mg 1 05/09/2021 fentaNYL citrate PF (SUBLIMAZE) 1 2020 injection 25 mcg ondansetron (ZOFRAN) injection 4 mg 1 SODIUM CHLORIDE 0.9 % IV SOLP (Cabinet 1 05/09/2021 Override) First Ordered Date Diet Count Last Ordered Date DISCHARGE DIET OTHER 1 05/09/2021 DISCHARGE DIET REGULAR 1 05/09/2021 First Ordered Date Nursing Count Last Ordered Date DISCHARGE ACTIVITY NORMAL 1 05/09/2021 DISCHARGE CONTACT 05/09/2021 DISCHARGE SIGNS/SYMPTOMS 1 05/09/2021 First Ordered Date Discharge Count Last Ordered Date DISCHARGE PATIENT NOW 1 05/09/2021 First Ordered Date Vital Signs Count Last Ordered Date VITAL SIGNS 1 05/09/2021 documented in this encounter Additional Health Concerns Assessment Noted Time PHQ-9 Depression Total Score: 18 04/13/2018 1:14 PM CDT A fall risk assessment has been completed for the pat ient 05/09/2021 11:01 AM CDT A Body Mass Index follow-up plan has been documented for the patient 04/13/2018 2:23 PM CDT PHQ-2 Depression Total Score: 4 04/13/2018 1:14 PM CDT documented as of this encounter
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
--- OUTSIDE RECORDS SUMMARY | 2021-05-13 12:17 | XMS REPORT | Encounter Summary ---
Author Author [facility] Organization [facility] Address Unknown Phone Unavailable Care Team Providers Care Board Design Engineer Name Role Phone No Pcp, Na PCP Unavailable Reason for Visit * Auth/Cert Referred By Contact Referred To Contact Status Reason Specialty Diagnoses / Procedures Diagnoses Mass of upper lobe of right lung Mass of upper lobe of right lung [R91.8] P rocedures WY BRNCHSC INCL FLUOR GDNCE DX W/CELL WASHG SPX WY BRONCHOSCOPY W/CPTR-ASST IMAGE-GUIDED NAVIGATION WY BRNCHSC W/BRNCL ALVEOLAR LAVAGE WY BRNCHSC EBUS GUIDED SAMPL 3/> NODE STATION/STRUX WY BRONCHOSCOPY W/TRANSBRONCHIAL LUNG BX 1 LOBE WY BRONCHOSCOPY NEEDLE BX TRACHEA MAIN STEM&/BRON BRONCHOSCOPY [...] Details Care Team Description Date Type Department Ynes Norris MD [address] [place] [address] [phone] 05/09/2021 Anesthesia Operating Room: [facility] 4000 [facility] Level 2 [place] [address] Anesthesia Record Responsible Anesthesiologist Anesthesia Start Time Anesthesi a Stop Time Procedure Name Ynes Norris MD 05/09/21 1217 05/09/21 1324 BRONCHOSCOPY DIAGNOSTIC WITH/ WITHOUT CELL WASHING - FLEXIBLE (N/A Bronchus) Date Time Event Comment 1139 115 AN Equip Check 1216 Out of Pre Procedure 1217 Anes Start 1231 In Room 1233 An Start Data 1235 An Induction The patient was ree valuated immediately before moderate or deep sedation use and before anesthesia induction. 1236 An Intubation 1241 Anesthesia Ready 1243 Proc Start 1314 Quick Note Bis 28 1317 An Extubation 1322 an stop data 1324 Handoff to RN I completed my SBAR handoff to the receiving nurse. 1324 An Stop Meds Name Total midazolam (VERSED) 1 mg/mL injection 2 mg fentaNYL PF (SUBLIMAZE) injection 100 mcg lidocaine PF 2% 100mg/5mL vial 100 mg propofol (DIPRIVAN) 200 mg/ 20 mL 200 mg injection (VIAL) rocuronium (ZEMURON) injection 70 mg dexamethasone (DECADRON) 4 mg/mL 4 mg injection propofol (DIPRIVAN) infusion 424.32 mg sugammadex (BRIDION) 100 mg/mL iv soln 400 mg artificial tears (GENTEAL TEARS; BION 1 drop TEARS) single dose solution ondansetron (ZOFRAN) injection 4 mg 4 mg sodium chloride 0.9 % infusion 500 mL * Name O2 N2O Inspired N2O * No blood administrations on file. Removal Type Details Placement 05/09/21 1425 by Geeta Ortiz RN Peripheral 05/09/21; 1055; RN; L; Mid; Hand; 20 G; 05/09/21 1055 by EBONY Dupree No; 2; 05/09/21; 1425 AMY Hendricks 05/09/21 1317 by Ani Colón, SRYony A ETT 05/09/21; 1236; Mask ventilation not 0 05/09/21 1236 by attempted (0); Direct laryngoscopy; Sam Colón, SRNA Single-Lumen, Cuffed; ETT Size: 9mm; Mac; Blade Size: 4; Cricoid Pressure: Yes; Oral; 2b-Arytenoids or posterior part of the vocal cords only just visible; 1 insertion attempt; Auscultation, ETCO2 Detector; Vol of r in Cuff: 8 mL; Taped at Gums: 25 centimeters; 05/09/21; 1317 documented in this encounter Social History Date Tobacco Use Types Packs/Day [...] / COVID-19? documented as of this encounter Functional Status [...] impairment: No documented as of this encounter OR Notes * Anesthesia Postprocedure Evaluation - Marques Leal MD - 05/09/2021 2:29 PM CDT Post-Anesthesia Evaluation Name: Bjorn Patterson Jr. : 1970 Age: 51 y.o. Sex: male Procedure Information Anesthesia Start Date/Time: 05/09/21 1217 Procedures: BRONCHOSCOPY DIAGNOSTIC WITH/ WITHOUT CELL WASHING - FLEXIBLE (N/A Bronchus) BRONCHOSCOPY WITH IMAGE - GUIDED NAVIGATION - FLEXIBLE (N/A Bronchus) BRONCHOSCOPY WITH BRONCHIAL ALVEOLAR LAVAGE - FLEXIBLE (N/A Bronchus) BRONCHOSCOPY WITH ENDOBRONCHIAL ULTRASOUND GUIDED TRANSTRACHEAL/ TRANSBRONCH IAL SAMPLING - 3 OR MORE MEDIASTINAL/ HILAR LYMPH NODE STATIONS/ STRUCTURE - FLE XIBLE (N/A Bronchus) BRONCHOSCOPY WITH TRANSBRONCHIAL LUNG BIOPSY - FLEXIBLE - SINGLE LOBE (N/A B ronchus) BRONCHOSCOPY WITH TRANSBRONCHIAL NEEDLE ASPIRATION AND BIOPSY TRACHEA/ MAIN STEM/ LOBAR BRONCHUS - FLEXIBLE (N/A Bronchus) Location: MAIN OR 18 / Main OR/Periop Surgeons: Jass Vasquez MD Post-Anesthesia Vitals BP: 106/67 (05/09 1415) Temp: 36.7 C (98.1 F) (05/09 1415) Pulse: 79 (05/09 1415) Respirations: 13 PER MINUTE (05/09 1415) SpO2: 97 % (05/09 1415) SpO2 Pulse: 78 (05/09 1415) Vitals Value Taken Time BP 106/67 05/09/21 1415 Temp 36.7 C (98.1 F) 05/09/21 1415 Pulse 79 05/09/21 1415 Respirations 13 PER MINUTE 05/09/21 141 SpO2 97 % 05/09/21 1415 Post Anesthesia Evaluation Note Evaluation location: Pre/Post Patient participation: recovered; patient participated in evaluation Level of consciousness: alert Pain management: adequate Hydration: normovolemia Temperature: 36.0C - 38.4C Airway patency: adequate Perioperative Events Post-op nausea and vomiting: no PONV Postoperative Status Cardiovascular status: hemodynamically stable Respiratory status: spontaneous ventilation Follow-up needed: none Perioperative Events Perioperative Event: No Emergency Case Activation: No Associated attestation - Collette Paulson MD - 05/12/2021 9:05 AM CDT ATTESTATION Post-Anesthesia Evaluation Attestation: I reviewed and agree the indicated post- anethesia care was provided. Staff name: Collette Paulson MD Date: 05/12/2021 * Anesthesia Preprocedure Evaluation - Ynes Norris MD - 05/09/2021 6:45 AM CDT Images from the original note were not included. Anesthesia Pre-Procedure Evaluation Name: Bjorn Patterson Jr. : 1970 Age: 51 y.o. Sex: male Procedure Info: Procedure Information Date/Time: 05/09/21 1115 Procedures: BRONCHOSCOPY DIAGNOSTIC WITH/ WITHOUT CELL WASHING - FLEXIBLE (N/A ) BRONCHOSCOPY WITH IMAGE - GUIDED NAVIGATION - FLEXIBLE (N/A ) BRONCHOSCOPY WITH BRONCHIAL ALVEOLAR LAVAGE - FLEXIBLE (N/A ) BRONCHOSCOPY WITH ENDOBRONCHIAL ULTRASOUND GUIDED TRANSTRACHEAL/ TRANSBRONCH IAL SAMPLING - 3 OR MORE MEDIASTINAL/ HILAR LYMPH NODE STATIONS/ STRUCTURE - FLE XIBLE (N/A ) BRONCHOSCOPY WITH TRANSBRONCHIAL LUNG BIOPSY - FLEXIBLE - SINGLE LOBE (N/A ) BRONCHOSCOPY WITH TRANSBRONCHIAL NEEDLE ASPIRATION AND BIOPSY TRACHEA/ MAIN STEM/ LOBAR BRONCHUS - FLEXIBLE (N/A ) Location: MAIN OR 18 / Main OR/Periop Surgeons: Jass Vasquez MD Physical Assessment Vital Signs (last filed in past 24 hours): BP: 117/79 (05/09 1055) Temp: 36.8 C (98.3 F) (05/09 1055) Pulse: 78 (05/09 1055) Respirations: 15 PER MINUTE (05/09 1055) SpO2: 98 % (05/09 1055) Height: 195.6 cm (77") (05/09 1055) Weight: 104 kg (229 lb 4.5 oz) (05/09 1055) Patient History Allergies Allergen Reactions Gabapentin DELUSIONS "thought was in his shower, was found outside peeing" Adhesive Tape (Rosins) RASH Ofloxacin HIVES and ITCHING Latex UNKNOWN Per Pulm Office Visit Current Medications Medication Directions albuterol sulfate (PROAIR HFA) 90 mcg/actuation HFA aerosol inhaler Inhale 2 puf fs by mouth into the lungs every 6 hours as needed for Wheezing or Shortness of Breath. Shake well before use. nicotine (NICODERM CQ STEP 1) 21 mg/day patch Apply one patch to top of skin as directed daily. Rotate patch location. nicotine (NICODERM CQ STEP 2) 14 mg/day patch Apply one patch to top of skin as directed daily. Rotate patch location. nicotine polacrilex (NICORETTE) [address] one each inside cheek (side of mo uth) every 1 hour as needed. Chew to soften and park in mouth between lip and gu m. Subjective: History of Present Illness Bjorn Patterson Jr. is a 51 y.o. male with PMH of HLD, COPD, CAD, reported rec ent diagnosis of CHF, history of seizures (not on AEDs), ?history of pancreatic cancer in 2013, and current tobacco abuse referred for a PET avid RUL mass. Patient was referred from Pulmonary in [place], [place] for a PET avid RUL mas [...] but patient was ul timately referred to [facility]. Patient reports a 60 lb unintentional [...] with anesthes ia. No history of MH. Review of Systems/Medical History Patient summary reviewed Nursing notes reviewed Pertinent labs reviewed PONV Screening: Postoperative opioids No history of anesthetic complications Pulmonary Current smoker tobacco use Asthma COPD, moderate (albuterol, symbicort) Cardiovascular Exercise tolerance: >4 METS Beta Karen therapy: No Beta blockers within 24 hours: n/a Coronary artery disease CHF Hyperlipidemia Dyspnea on exertion GI/Hepatic/Renal No GERD, Electrolyte problem (K 5.1) Neuro/Psych Seizures (not on any AEDs), well controlled No chronic opioid use No chronic benzodiazepine use Psychiatric history Depression Bipolar disorder Musculoskeletal No neck pain No fractures Endocrine/Other No anemia No malignancy (?h/o pancreatic ca 2013) Physical Exam Airway Findings Mallampati: II TM distance: >3 FB Neck ROM: full Mouth opening: good Dental Findings: Negative Cardiovascular Findings: Rhythm: regular Rate: normal Pulmonary Findings: Decreased breath sounds and wheezes. Neurological Findings: Alert and oriented x 3 Normal mental status Constitutional findings: No acute distress Diagnostic Tests Hematology: Lab Results Component Value Date HGB 16.5 05/06/2021 HCT 48.6 05/06/2021 PLTCT 189 05/06/2021 WBC 8.3 05/06/2021 MCV 92.1 05/06/2021 MCH 31.3 05/06/2021 MCHC 34.0 05/06/2021 MPV 8.0 05/06/2021 RDW 13.8 05/06/2021 General Chemistry: Lab Results Component Value Date NA 141 05/06/2021 K 5.1 05/06/2021 CL 105 05/06/2021 CO2 28 05/06/2021 GAP 8 05/06/2021 BUN 12 05/06/2021 CR 1.23 05/06/2021 GLU 91 05/06/2021 CA 9.9 05/06/2021 ALBUMIN 4.4 08/02/2018 TOTBILI 0.4 08/02/2018 Coagulation: No results found for: PT, PTT, INR Anesthesia Plan ASA score: 3 Plan: general Induction method: intravenous NPO status: acceptable Informed Consent Anesthetic plan and risks discussed with patient. Use of blood products discussed with patient Blood Consent: consented Plan discussed with: anesthesiologist, TURFGRASS TECHNICIAN and surgeon/proceduralist. documented in this encounter Plan of Treatment Not on filedocumented as of this encounter Visit Diagnoses Not on filedocumented in this encounter Administered Medications Action Date Dose Rate Site Medication Order MAR Action 05/09/2021 12:36 PM CDT 1 drop artificial tears single dose ophthalmic Given solution Both Eyes, INTRA-PROCEDURE MED, Startin g on Wed05/09/21 at 1236, Until Wed05/09/21 at 1328, Anesthesia Intra-op 05/09/2021 12:45 PM CDT 4 mg dexamethasone (DECADRON) injection Given Intravenous, INTRA-PROCEDURE MED, Starting on Wed05/09/21 at 1245, Until Wed05/09/21 at 1328, Anesthesia Intra-o p 05/09/2021 12:35 PM CDT 100 mcg fentaNYL citrate PF (SUBLIMAZE) Given injection Intravenous, INTRA-PROCEDURE MED, Starting on Wed05/09/21 at 1235, Until Wed05/09/21 at 1328, Anesthesia Intra-o p 05/09/2021 12:35 PM CDT 100 mg lidocaine PF 20 mg/mL (2 %) injection Given Intravenous, INTRA-PROCEDURE MED, Starting on Wed05/09/21 at 1235, Until Wed05/09/21 at 1328, Anesthesia Intra-o p 05/09/2021 12:31 PM CDT 2 mg midazolam (VERSED) injection Given Intravenous, INTRA-PROCEDURE MED, Starting on Wed05/09/21 at 1231, Until Wed05/09/21 at 1328, Anesthesia Intra-o p 05/09/2021 1:12 PM CDT 4 mg ondansetron (ZOFRAN) injection 4 mg Given 4 mg, Intravenous, ONCE PRN, 1 dose, Starting on Wed05/09/21 at 1308, Until Wed05/09/21 at 1312, Other..., nausea/vomiting, First line agent., DO NOT ADMINISTER if given within the last six hours., PACU (only) 05/09/2021 12:49 PM CDT 100 mcg/kg/min 62.4 mL/hr propofol (DIPRIVAN) infusion Dose/Rate 100 mL, Intravenous, INTRA-PROCEDURE Change MED(CONT), Starting on Wed05/09/21 at 1235, Until Wed05/09/21 at 1328, Anesthesia Intra-op 120 mcg/kg/min 74.88 mL/hr Given - New Bag 05/09/2021 12:35 PM CDT 05/09/2021 12:35 PM CDT 200 mg propofol (DIPRIVAN) injection Given Intravenous, INTRA-PROCEDURE MED, Starting on Wed05/09/21 at 1235, Until Wed05/09/21 at 1328, Anesthesia Intra-o p 05/09/2021 1:07 PM CDT 20 mg rocuronium injection Given Intravenous, INTRA-PROCEDURE MED, Starting on Wed05/09/21 at 1235, Until Wed05/09/21 at 1328, Anesthesia Intra-o p 50 mg Given 05/09/2021 12:35 PM CDT 05/09/2021 12:30 PM CDT sodium chloride 0.9 % infusion Infusion 1,000 mL, Intravenous, at 25 mL/hr, Restarted CONTINUOUS, Starting on Wed05/09/21 at 1045, Until Wed05/09/21 at 1632, Pre-Op 25 mL/hr Given - New Bag 05/09/2021 11:02 AM CDT 05/09/2021 1:11 PM CDT 400 mg sugammadex (BRIDION) injection Given Intravenous, INTRA-PROCEDURE MED, Starting on Wed05/09/21 at 1311, Until Wed05/09/21 at 1328, Anesthesia Intra-o p documented in this encounter Orders First Ordered Date Medications Ordered That Might Not Have Count Last Ordered Date Been Administered sugammadex (BRIDION) injection 1 021 documented in this encounter Additional Health Concerns [...]
--- OUTSIDE RECORDS SUMMARY | 2021-05-13 12:17 | XMS REPORT | Encounter Summary ---
Author Author [facility] Organization [facility] Address Unknown Phone Unavailable Care Team Providers Care Town Planner Name Role Phone No Pcp, Na PCP Unavailable Encounter Details Care Team Description Date Type Department 05/09/2021 Travel Social History Date Tobacco Use Types Packs/Day [...] as of this encounter Plan of Treatment Not on [...]
--- OUTSIDE RECORDS SUMMARY | 2021-05-13 12:17 | XMS REPORT | Encounter Summary ---
Author Author [facility] Organization [facility] Address Unknown Phone Unavailable Care Team Providers Care Clothespin Drier Operator Name Role Phone No Pcp, Na PCP Unavailable Reason for Visit * Auth/Cert Referred By Contact Referred To Contact Status Reason Specialty Diagnoses / Procedures Diagnoses Mass of upper lobe of right lung Mass of upper lobe of right lung [R91.8] P rocedures HI BRNCHSC INCL FLUOR GDNCE DX W/CELL WASHG SPX HI BRONCHOSCOPY W/CPTR-ASST IMAGE-GUIDED NAVIGATION HI BRNCHSC W/BRNCL ALVEOLAR LAVAGE HI BRNCHSC EBUS GUIDED SAMPL 3/> NODE STATION/STRUX HI BRONCHOSCOPY W/TRANSBRONCHIAL LUNG BX 1 LOBE HI BRONCHOSCOPY NEEDLE BX TRACHEA MAIN STEM&/BRON BRONCHOSCOPY [...] Date Type Department Jass Vasquez MD [address] Ortho/Med Pavilion [address] [place] [address] Mass of upper lobe of right lung 05/09/2021 Hospital Operating Room: [facility], [facility] [address] [facility] [address] [place] [address] Social History Date Tobacco Use [...] (98.1 F) 05/09/2021 2:15 PM CDT Temperature - - Respiratory Rate 97% 05/09/2021 2:15 PM CDT [...] performed on 05-06-21. Jass Vasquez MD Pager [phone] * Tiffany Shankar MD - 05/06/2021 4:00 PM CDT Subjective: History of Present Illness Bjorn Patterson Jr. is a 51 y.o. male with PMH of HLD, COPD, CAD, reported rec ent diagnosis of CHF, history of seizures (not on AEDs), ?history of pancreatic cancer in 2013, and current tobacco abuse referred for a PET avid RUL mass. Patient was referred from Pulmonary in [place], [place] for a PET avid RUL mas [...] but patient was ul timately referred to [facility]. Patient reports a 60 lb unintentional [...] characteristics and significant history of tobacco abuse, hiram is is highly suspicious for a primary [...] visit, discussed case with Dr Valerie Shankar, [facility] fellow and concur with our fellow's documentation of history, physi luis exam, assessment, and treatment plan unless otherwise noted. Total time spe nt reviewing referring documents, radiographs, face to face time with patient, d eveloping plan and answering questions 72 minutes. DOS [...] of 11:15am. This will be at the Main [facility] at [address] [place] [address]. - Nothing to eat or drink after [...] check in at admitting, just inside the main [facility] entrance , located at [address] [place] [address], two and a half (2 1/2 ) hours before your procedure time. There is a parking garage (P3) located acros s from the entrance. - you will need a courier delivery driver to and from the procedure. Only one (1) person is all owed to accompany you. Results are generally available 3 - 5 business days after the procedure and we w ill contact you to discuss the results. Due to the enactment of The [place] Cures Act (Cures Act), results [...] after business hours, weekends, or holidays: Call [phone] and request for the Telephone Lineman to be paged. - To cancel, change, or schedule a clinic appointment: Call our Pulmonary [facility] [facility] at Pulmonary Clinic Nurse Coordinator-Tenisha Burleson RN - Office: [phone] fa x: [phone] documented in this encounter Plan of Treatment [...] Procedure Date: 05/09/2021 RESULTS 11:57 AM CSN: [id number] Date of : 1970 Gender: Male Attending Physician: Jass Vasquez MD Procedure: Bronchoscopy Indications: Right upper lobe mass Providers: Jass Vasquez MD (Doctor), Tiffany Shankar MD (Fellow), Akbar Valderrama RN (Nurse), Bryan Munroe (Water Fabricator Operator) Referring Physician: Rebecca Rea Medications: General Anesthesia [...] aspiration was also performed using an Olympus Remediation of NevadaiShot 21 gauge needle in the right superior [...] Mass of upper lobe of right lung - Prim priyank documented in this encounter Administered Medications Action [...] to gravity)1230 (Infusion Restarted - Provider: SAVANAH Shelodn)1320 (Infusion Stopped - Provider: SAVANAH Sheldon) sodium [...] DISCHARGE ACTIVITY NORMAL 1 05/09/2021 DISCHARGE CONTACT 1 05/09/2021 DISCHARGE SIGNS/SYMPTOMS 1 05/09/2021 First Ordered [...]
--- OUTSIDE RECORDS SUMMARY | 2021-05-13 12:18 | XMS REPORT | Encounter Summary ---
Author Author [facility] Organization [facility] Address Unknown Phone Unavailable Care Team Providers Care Community Relations Assistant Name Role Phone No Pcp, Na PCP Unavailable Encounter Details Care Team Description Date Type Department Carrie Palomino MD [address] [place] [address] 04/25/2021 Hosp Imaging: [facility], Documentation Medical Pavilion Only [address] [facility] [place] [address] Social History Date Tobacco Use [...] scanned into chart) History of Cancer: No Catalyst Impregnator & Phone/Pager # Rebecca Moran (COMMISSION SPECIALIST); [place] [facility] [place], [place] [address], Office: [phone], Is this order for a research study? [...]
--- OUTSIDE RECORDS SUMMARY | 2021-05-13 12:18 | XMS REPORT | Encounter Summary ---
Author Author [facility] Organization [facility] Address Unknown Phone Unavailable Care Team Providers Care Kid Club Attendant Name Role Phone No Pcp, Na PCP Unavailable Encounter Details Care Team Description Date Type Department Jass Vasquez MD [address] Ortho/Med Pavilion [address] [place] [address] Mass of upper lobe of right lung (Primar y Dx); Encounter for screening laboratory testing for COVID-19 virus in asymptomatic patient 05/06/2021 Prep for Case Pulmonology: [facility], Medical Pavilion [address], [address] [address] Social History Date Tobacco Use [...] Not on filedocumented as of this encounter Results * BASIC METABOLIC PANEL (05/06/2021 5:29 PM [...] >60 >60 mL/min [facility] Comment: [place] The eGFR is not validated f or use in drug dosing adjustments. Continue to use estimated creatinine clearance per dosing reference text. Please contact the Clinical Pharmacist for questions. eGFR >60 >60 mL/min [facility] [place] Comment: The eGFR is not validated for use in drug dosing adjustments. Continue to use estimated creatinine clearance per dosing reference text. Please contact the Clinical Pharmacist for questions. Specimen Blood Performing Organization Address City/State/ZIP Code P hope Number [facility] [address] [place] [address] * CBC (05/06/2021 5:29 PM CDT) Pathologist [facility] White Blood 8.3 4.5 - 11.0 K/UL [...] MAIN LAB Specimen Blood Performing Organization Address City/State/ZIP Code P hope Number [facility] [address] [place] [address] * COVID-19 (SARS-COV-2) PCR (05/06/2021 5:13 PM CDT) COVID-19 FLOCKED SWAB MAIN LAB (SARS-CoV-2) NASOPHARYNGEAL PCR Source COVID-19 NOT DETECTED DN-NOT DETECTED [facility] (SARS-CoV-2) Comment: PCR This assay is designed [...] Performance characteristics have been verified by the [facility]. Fact sheet for providers: https://www.fda.gov/media/1374 78/download Fact sheet for patients: https://www.fda.gov/media/8263 81/download Specimen Flocked Swab - Nasopharyngeal Performing Organization Address City/State/ZIP Code P hope Number MAIN LAB [address] [place] [address] documented in this encounter Visit Diagnoses Diagnosis Mass of upper lobe of right lung - Prim priyank Encounter for screening laboratory test ing for COVID-19 virus in asymptomatic patient documented in this encounter Orders First Ordered Date Case Request Count Last Ordered Date CASE REQUEST GI ENDOSCOPY 1 05/06/2021 documented in this encounter Additional Health Concerns [...]
--- OUTSIDE RECORDS SUMMARY | 2021-05-13 12:18 | XMS REPORT | Encounter Summary ---
Author Author [facility] Organization [facility] Address Unknown Phone Unavailable Care Team Providers Care Exercise Rider Name Role Phone No Pcp, Na PCP Unavailable Reason for Visit * Reason Onset Date Comments Care Coordination 04/24/2021 Encounter Details Care Team Description Date Type Department Dimas Trujillo MD [address] Ortho/Med Pavilion [address] [place] [address] Care Coordination 04/24/2021 Telephone Pulmonology: [facility], Medical Pavilion [address], [address] [address] Social History Date Tobacco Use [...]
--- OUTSIDE RECORDS SUMMARY | 2021-05-13 12:18 | XMS REPORT | Encounter Summary ---
Author Author [facility] Organization [facility] Address Unknown Phone Unavailable Care Team Providers Care Ball Sorter Name Role Phone No Pcp, Na PCP Unavailable Reason for Visit * Reason Onset Date Comments Results 05/07/2021 Encounter Details Care Team Description Date Type Department Jass Vasquez MD [address] Ortho/Med Pavilion [address] [place] [address] [phone] Results 05/07/2021 Telephone Specialty Screening : [facility] [address] [facility] [place] [address] Social History Date Tobacco Use Types Packs/Day Years Used Current Every Day Smoker Cigarettes 1.5 33 Smokeless Tobacco: Never Used Comments Alcohol Use Standard Drinks/Week No 0 (1 standard drink = 0.6 o z pure alcohol) Sex Assigned at Date Recorded Not on file Date Recorded COVID-19 Exposure Response 05/06/2021 2:59 PM CDT In the last month, have you [...] encounter Miscellaneous Notes * Telephone Encounter - Jazzy Butler RN - 05/07/2021 10:58 AM CDT Spoke with patient and confirmed name and . Patient advised that COVID-19 jossue t results are NEGATIVE. Advised that patient can continue with the procedure and should follow pre-procedure instructions. Advised patient to continue with home quarantine until procedure. Advised that if they develop any concerning symptoms prior to the procedure to contact their procedure team, specialist, and/or PCP for assistance. documented in this encounter Plan of Treatment [...]
--- OUTSIDE RECORDS SUMMARY | 2021-05-13 12:18 | XMS REPORT | Encounter Summary ---
Author Author [facility] Organization [facility] Address Unknown Phone Unavailable Care Team Providers Care Pusher Operator Name Role Phone No Pcp, Na PCP Unavailable Encounter Details Care Team Description Date Type Department Alphonso Olson MD [address] [place] [address] [phone] Exposure to 2019 novel coronavirus 05/06/2021 Nurse Only Urgent Care: [facility], [facility] [address] [place] [address] Social History Date Tobacco Use Types Packs/Day [...] Schedule Name Type Priority Associated Diag noses 1 Occurrences starting 05/06/2021 until 05/06/2022 COVID-19 (SARS-COV-2) PCR Microbiology Routine Expo sure to 2019 novel coronavirus documented as of this encounter Visit Diagnoses Diagnosis Exposure to 2019 novel coronavirus documented in this encounter Additional Health Concerns [...]
--- OUTSIDE RECORDS SUMMARY | 2021-05-13 12:18 | XMS REPORT | Encounter Summary ---
Author Author [facility] Organization [facility] Address Unknown Phone Unavailable Care Team Providers Care Drafter Structural Name Role Phone No Pcp, Na PCP Unavailable Reason for Visit * Reason Onset Date Comments Procedure 05/06/2021 Veran/EBUS Encounter Details Care Team Description Date Type Department Jass Vasquez MD [address] Ortho/Med Pavilion Lvl [address]A [place] [address] Procedure (Veran/EBUS) 05/06/2021 Telephone Pulmonology: Main [place] [facility], Medical Pavilion [address] Level 4, [address] [address] Social History Date Tobacco Use [...] encounter Miscellaneous Notes * Telephone Encounter - Tenisha Burleson RN - 05/06/2021 5:09 PM CDT Orders for Vera/EBUS, Covid testing, CBC, and BMP entered. Patient scheduled fo r procedure on 05/09/21 @ 11:15 and Covid testing on today at 5:20 at [facility]. Went over pre-procedure instructions with patient and his mother and provided in writ ing on his AVS. Patient escorted to Urgent Care for Covid testing and he will h ave labs drawn afterwards. Tenisha Burleson RN documented in this encounter Plan of [...]
--- OUTSIDE RECORDS SUMMARY | 2021-05-13 12:18 | XMS REPORT | Encounter Summary ---
Author Author [facility] Organization [facility] Address Unknown Phone Unavailable Care Team Providers Care Coding Machine Operator Name Role Phone No Pcp, Na PCP Unavailable Encounter Details Care Team Description Date Type Department Derek Nation RN 04/25/2021 Telephone Interventional Radi ology: [place], [facility] [address], [address] [place] [address] Social History Date Tobacco Use [...] Spoke with Rebecca Moran APRN with [facility] in [place], [place] about treatment change on Patient. Rebecca [facility]ch[facility] discussed in TREASURE on 04/24/2021 and fax referral to [phone] per Gustavo Honeycutt. documented in this encounter [...]
--- OUTSIDE RECORDS SUMMARY | 2021-05-13 12:18 | XMS REPORT | Encounter Summary ---
Author Author [facility] Organization [facility] Address Unknown Phone Unavailable Care Team Providers Care Builder Operator Name Role Phone No Pcp, Na PCP Unavailable Reason for Visit * Reason Comments Abnormal Lung Imaging * Consult, Test & Treat (Routine) Referred By Contact Referred To Contact Status Reason Specialty Diagnoses / Procedures Rebecca Rea, [address] [place] [address] New Request Pulmonology Diagnoses Abnormal findings on diagnostic imaging of lung Encounter Details Care Team Description Date Type Department Dimas Trujillo MD [address] Ortho/Med Pavilion Lvl [address] [place] [id number] Jass Vasquez MD [address] Ortho[facility] Pavilion [address] [place] [address] [phone] Mass of upper lobe of right lung (Primar y Dx); Tobacco abuse; Chronic obstructive pulmonary disease, unspecified COPD type (HCC) 05/06/2021 Office Visit Pulmonology: Palmer Rocha amp[facility], Medical Pavilion [address], [address] [address] Social History Date Tobacco Use [...] impairment: No documented as of this encounter Patient Instructions * Patient Instructions* Tenisha Burleson RN - 05/06/2021 4:00 PM CDT 1. COVID Testing You are schedule on May 06 at 5:20pm 2. Pre-procedure Instructions - You have been scheduled for a Bronchoscopy on May 09, with a beth ck in time of 8:45am and procedure time of 11:15am. This will be at the [facility] [place] at [address] [place] [address]. - Nothing to eat or drink after [...] in at admitting, just inside the main [facility] entrance , located at [address] [place] [address], two and a half (2 1/2 ) hours before your procedure time. There is a parking garage (P3) located acros s from the entrance. - you will need a local truck driver to and from the procedure. Only [...] or holidays: Call and request for the College Basketball Coach to be paged. - To cancel, change, or schedule a clinic appointment: Call our Pulmonary [place] at Pulmonary Clinic Nurse Coordinator-Tenisha Burleson RN - Office: [phone] fa x: [phone] documented in this encounter Progress Notes * Tiffany Shankar MD - 05/06/2021 4:00 PM CDT Subjective: History of Present Illness Bjorn Patterson Jr. is a 51 y.o. male with PMH of HLD, COPD, CAD, reported rec ent diagnosis of CHF, history of seizures (not on AEDs), ?history of pancreatic cancer in 2013, and current tobacco abuse referred for a PET avid RUL mass. Patient was referred from Pulmonary in [place], [place] for a PET avid RUL mas [...] PET avid LAD Assessment and Plan: Bjorn Edwardsdamaris Marinelli is a 51 y.o. male with PMH [...] visit, discussed case with Dr Valerie Shankar, [facility] fellow and concur with our fellow's [...] 11:15am. This will be at the [facility] [place] at [address] [place] [address]. - Nothing to eat or drink after [...] in at admitting, just inside the main hospital entrance , located at [address] [place] [address], two and a half (2 1/2 ) hours before your procedure time. There is a parking garage (P3) located acros s from the entrance. - you will need a local truck driver to and from the procedure. Only [...] or holidays: Call and request for the College Basketball Coach to be paged. - To cancel, change, or schedule a clinic appointment: Call our Pulmonary [place] at Pulmonary Clinic Nurse Coordinator-Tenisha Burleson RN - Office: [phone] fa x: [phone] documented in this encounter Miscellaneous Notes * Addendum Note - Jass Vasquez MD - 05/06/2021 4:00 PM CDT Addended by: JASS VASQUEZ on: 05/08/2021 10:05 AM Modules accepted: Level of Service documented in this encounter Plan of Treatment Not on filedocumented as of this encounter Visit Diagnoses Diagnosis Mass of upper lobe of right lung - Prim priyank Tobacco abuse Tobacco use disorder Chronic obstructive pulmonary disease, unspecified COPD type (HCC) documented in this encounter Additional Health Concerns [...]
--- OUTSIDE RECORDS SUMMARY | 2021-05-13 12:18 | XMS REPORT | Encounter Summary ---
Author Author [facility] Organization [facility] Address Unknown Phone Unavailable Care Team Providers Care Teacher Adult Education Name Role Phone No Pcp, Na PCP Unavailable Encounter Details Care Team Description Date Type Department 05/06/2021 Travel Social History Date Tobacco Use Types [...]
--- OUTSIDE RECORDS SUMMARY | 2021-05-13 12:18 | XMS REPORT | Encounter Summary ---
Author Author [facility] Organization [facility] Address Unknown Phone Unavailable Care Team Providers Care Transport Aircrewman Name Role Phone No Pcp, Na PCP Unavailable Reason for Visit * Reason Onset Date Comments Referral 04/29/2021 Encounter Details Care Team Description Date Type Department Jass Vasquez MD [address] Ortho/Med Pavilion Lvl [address] [place] [address] Referral 04/29/2021 Telephone Pulmonology: Palmer Rocha amp[facility], Medical Pavilion [address], [address] [address] Social History Date Tobacco Use [...] Telephone Encounter - Tenisha Burleson RN - 04/29/2021 11:41 AM CDT Patient discussed in TREASURE. Patient will need to be scheduled be seen in [facility] for consideration of EBUS/Veran. Email sent to Pulcip[facility]ano Jaramillo with scheduling request. Tenisha Burleson RN Referred: 04/25/21 from JASMINA Murphy ([facility]) Reason: Abnormal Imaging Imaging: PET/CT 03/25 Long Term Care Phlebotomist: Minerva Vasquez MD documented in this encounter Plan of [...]
--- OUTSIDE RECORDS SUMMARY | 2021-05-13 12:18 | XMS REPORT | Encounter Summary ---
Author Author [facility] Organization [facility] Address Unknown Phone Unavailable Care Team Providers Care Muck Boss Name Role Phone No Pcp, Na PCP Unavailable Encounter Details Care Team Description Date Type Department Jass Vasquez MD [address] Ortho/Med Pavilion Lvl [address] [place] [address] Arrived 05/06/2021 Hospital Laboratory: Main [place], Encounter Medical Pavilion [address], [address] [place] [address] Social History Date Tobacco Use Types Packs/Day [...] Procedure Name Priority Date/Time Associated Diag nosis HC CBC,AUTOMATED Routine 05/06/2021 Mass of upper lobe of 5:29 PM CDT right lung HC BASIC METABOLIC PANEL Routine 05/06/2021 Mass of upper lobe of 5:29 PM CDT right lung COVID-19 (SARS-COV-2) PCR Routine 05/06/2021 Enco tonya for screening 5:13 PM CDT laboratory testing for COVID-19 virus in asymptomatic patient documented in this encounter Results * CBC (05/06/2021 5:29 PM CDT) White [...] Platelet Count 189 150 - 400 K/UL [facility] MPV 8.0 7 - 11 FL [facility] Specimen Blood Performing Organization Address City/[facility]/ZIP Code P hope Number [facility] [address] [place] [address] * BASIC METABOLIC PANEL (05/06/2021 5:29 PM CDT) Sodium 141 137 - 147 MMOL/L [facility] Potassium 5.1 3.5 - 5.1 MMOL/L [facility] Chloride 105 98 - 110 MMOL/L [facility] CO2 28 21 - 30 MMOL/L [facility] Anion Gap 8 3 - 12 [facility] Glucose 91 70 - 100 MG/DL [facility] Blood Urea 12 7 - 25 MG/DL [facility] Nitrogen Creatinine 1.23 0.4 - 1.24 MG/DL [facility] Calcium 9.9 8.5 - 10.6 MG/DL [facility] eGFR Non >60 >60 mL/min [facility] Comment: Mal[place] The eGFR is not validated f or use in drug dosing adjustments. Continue to use estimated creatinine clearance per dosing reference text. Please contact the Clinical Pharmacist for questions. eGFR >60 >60 mL/min [facility] [place] Comment: The eGFR is not validated for use in drug dosing adjustments. Continue to use estimated creatinine clearance per dosing reference text. Please contact the Clinical Pharmacist for questions. Specimen Blood Performing Organization Address City/[facility] P hope Number [facility] [address] [place] [address] * COVID-19 (SARS-COV-2) PCR (05/06/2021 5:13 PM CDT) Pathologist [facility] COVID-19 FLOCKED SWAB [facility] (SARS-CoV-2) NASOPHARYNGEAL PCR Source COVID-19 NOT DETECTED DN-NOT DETECTED [facility] (SARS-CoV-2) Comment: PCR This [...] Performance characteristics have been verified by the [facility]. Fact sheet for providers: https://www.fda.gov/media/7590 78/download Fact sheet for patients: https://www.fda.gov/media/2816 81/download Specimen Flocked Swab - Nasopharyngeal Performing Organization Address City/State/ZIP Code P hope Number [facility] [address] [place] [address] documented in this encounter Visit Diagnoses Diagnosis Encounter for screening laboratory test ing for COVID-19 virus in asymptomatic patient Mass of upper lobe of right lung documented in this encounter Additional Health [...]
--- OUTSIDE RECORDS SUMMARY | 2021-05-13 12:19 | XMS REPORT | Encounter Summary ---
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
[2021-05-13] MEDS ORDERED: NS IV 1000 ML 1,000 ML IV STA (12:28)
[2021-05-13 12:30] VITALS: BP_SYST 104; BP_SYST 111; BP_SYST 123; BP_DIAS 63; BP_DIAS 69; BP_DIAS 77
--- NOTE | 2021-05-13 12:38 | ED Dyspnea ---
General Chief Complaint: Respiratory Problems Stated Complaint: SOB Source of Information: Patient History of Present Illness Date Seen by Provider: May 13, 2021 Time Seen by Provider: 12:14 Initial Comments 51-year-old male presenting with complaints of right-sided chest pain intermittently as well as shortness of breath since having a lung biopsy done at on Wednesday by Certified Prosthetist/Orthotist Dr. Jass Vasquez. Patient also has been getting lightheaded dizzy if he stands up quickly. He has been intermittently coughing up some blood and some green-yellow mucus since the biopsy was done. Today at home his pulse oximeter was reading 82% so they were told to come to the emergency department by the [facility] clinic and Dr. Goncalves. However on arrival to the emergency department after walking to the room his O2 saturation was 96 to 98% on room air. He has no fever but has been having some chills. He states that all of his symptoms are the same as what he was told he would have by the shoemaker apprentice that did his biopsy. The only reason he came to the ED was because he had the low oxygen saturation on his home pulse oximeter. Associated Symptoms: Chest Pain (Intermittent right-sided chest pain), Cough, Fever, Lightheadedness (With standing to), Weakness (General) Allergies and Home Medications Allergies Coded Allergies: ofloxacin (Verified Allergy, Mild, 07/17/19) acetaminophen (Verified Allergy, Unknown, Hives, 03/13/20) gabapentin (Verified Allergy, Unknown, DELUSIONS, 05/13/21) Penicillins (Verified Adverse Reaction, Unknown, Pt has received Ceftriaxone in the past, 07/17/19) aspirin (Verified Adverse Reaction, Unknown, 07/17/19) latex (Verified Adverse Reaction, Unknown, 07/17/19) Uncoded Allergies: TAPE (Allergy, Mild, 07/17/09) Patient Home Medication List Home Medication List Reviewed: Yes Fenofibrate Nanocrystallized (Fenofibrate) 145 Mg Tablet, 145 MG PO DAILY Prescribed by: CONNIE JARVIS on 12/18/20 1004 Hydrocodone/Acetaminophen (Hydrocodone-Acetamin 5-325 mg) 1 Each Tablet, 1 TAB PO Q6H PRN for PAIN-MODERATE (5-7) Prescribed by: RIGOBERTO WARE on 04/25/21 1701 Oxycodone HCl/Acetaminophen (Oxycodone-Acetaminophen 5-325) 1 Each Tablet, 1 EACH PO Q4H PRN for PAIN-SEVERE (8-10) Prescribed by: SERGE LIGHT on 02/10/21 1201 Review of Systems Review of Systems Constitutional: chills; No fever; weakness EENTM: No nose congestion Respiratory: see HPI Cardiovascular: see HPI Gastrointestinal: no symptoms reported Genitourinary: no symptoms reported Musculoskeletal: no symptoms reported Skin: no symptoms reported Psychiatric/Neurological: See HPI Past Ogepbqm-Wjfvpo-Loxthq Hx Immunizations Up To Date Tetanus Booster (TDap): Less than 5yrs PED Vaccines UTD: Yes Seasonal Allergies Seasonal Allergies: No Past Medical History Surgeries: Yes (hernia repair, left testicle injury, brain surgery, cardiac stent) Cardiac, Coronary Stent, Orthopedic, Thyroidectomy Respiratory: Yes COPD Currently Using CPAP: No Currently Using BIPAP: No Cardiac: Yes (STENT) Coronary Artery Disease, Heart Attack Neurological: Yes Seizure Disorder Reproductive Disorders: No Sexually Transmitted Disease: No HIV/AIDS: No Genitourinary: Yes Kidney Stones Gastrointestinal: No Musculoskeletal: No Endocrine: No HEENT: Yes Loss of Vision: Bilateral Cancer: Yes Lung, Pancreatic Psychosocial: Yes ("anger issues") Integumentary: No Blood Disorders: No Adverse Reaction/Blood Tranf: No (N/A) Family Medical History Stroke Physical Exam Vital Signs Vital Signs - First Documented 05/13/21 05/13/21 12:20 15:15 Temp 36.4 Pulse 86 Resp 18 B/P (MAP) 138/68 (91) Pulse Ox 97 O2 Delivery Room Air Capillary Refill : Height, Weight, BMI Height: 6'4.00" Weight: 225lbs. 0.0oz. 102.749765wi; 26.00 BMI Method:Stated General Appearance: Chronically ill HEENT: No Moist Mucous Membranes (Slightly dry mucous membrane) Neck: Non Tender, Supple Respiratory: No Accessory Muscle Use, No Respiratory Distress, Decreased Breath Sounds, Wheezing Cardiovascular: Regular Rate, Rhythm, Normal Peripheral Pulses Extremity: Normal Capillary Refill, No Pedal Edema Neurologic/Psychiatric: Alert, Oriented x3 Skin: Normal Color, Warm/Dry Progress/Results/Core Measures Results/Orders Lab Results Laboratory Tests Test 05/13/21 12:30 Range/Units White Blood Count 12.1 H 4.3-11.0 10^3/uL Red Blood Count 5.26 4.30-5.52 10^6/uL Hemoglobin 16.5 13.3-17.7 g/dL Hematocrit 46 40-54 % Mean Corpuscular Volume 88 80-99 fL Mean Corpuscular Hemoglobin 31 25-34 pg Mean Corpuscular Hemoglobin Concent 36 32-36 g/dL Red Cell Distribution Width 13.0 10.0-14.5 % Platelet Count 183 130-400 10^3/uL Mean Platelet Volume 9.8 9.0-12.2 fL Immature Granulocyte % (Auto) 1 % Neutrophils (%) (Auto) 79 H 42-75 % Lymphocytes (%) (Auto) 14 12-44 % Monocytes (%) (Auto) 6 0-12 % Eosinophils (%) (Auto) 1 0-10 % Basophils (%) (Auto) 0 0-10 % Neutrophils # (Auto) 9.5 H 1.8-7.8 X 10^3 Lymphocytes # (Auto) 1.7 1.0-4.0 X 10^3 Monocytes # (Auto) 0.8 0.0-1.0 X 10^3 Eosinophils # (Auto) 0.1 0.0-0.3 10^3/uL Basophils # (Auto) 0.0 0.0-0.1 10^3/uL Immature Granulocyte # (Auto) 0.1 0.0-0.1 10^3/uL Sodium Level 137 135-145 MMOL/L Potassium Level 3.9 3.6-5.0 MMOL/L Chloride Level 99 98-107 MMOL/L Carbon Dioxide Level 26 21-32 MMOL/L Anion Gap 12 5-14 MMOL/L Blood Urea Nitrogen 8 7-18 MG/DL Creatinine 0.96 0.60-1.30 MG/DL Estimat Glomerular Filtration Rate 82 BUN/Creatinine Ratio 8 Glucose Level 127 H 70-105 MG/DL Calcium Level 9.8 8.5-10.1 MG/DL Corrected Calcium 9.6 8.5-10.1 MG/DL Total Bilirubin 0.8 0.1-1.0 MG/DL Aspartate Amino Transf (AST/SGOT) 12 5-34 U/L Alanine Aminotransferase (ALT/SGPT) 13 0-55 U/L Alkaline Phosphatase 83 40-136 U/L C-Reactive Protein 12.07 H <0.50 MG/DL Total Protein 7.3 6.4-8.2 GM/DL Albumin 4.3 3.2-4.5 GM/DL My Orders Orders - SERGE LIGHT MD Cbc With Automated Diff (05/13/21 12:28) Comprehensive Metabolic Panel (05/13/21 12:28) Ed Iv/Invasive Line Start (05/13/21 12:28) Sputum Culture (05/13/21 12:28) Monitor-Rhythm Ecg Trace Only (05/13/21 12:28) Crp Fs (05/13/21 12:28) Orthostatic Vital Signs (Adult (05/13/21 12:28) Ct Chest W (05/13/21 12:28) Ns Iv 1000 Ml (Sodium Chloride 0.9%) (05/13/21 12:28) Iohexol Injection (Omnipaque 350 Mg/Ml 1 (05/13/21 12:45) Received Contrast (Hold Metformin- Contr (05/13/21 12:45) Sodium Chloride Flush (Catheter Flush Sy (05/13/21 12:45) Ns (Ivpb) (Sodium Chloride 0.9% Ivpb Bag (05/13/21 12:45) Medications Given in ED Current Medications Medications Dose Ordered Sig/Alis Route Start Time Stop Time Status Last Admin Dose Admin Iohexol 100 ml ONCE ONCE IV 05/13/21 12:45 05/13/21 12:50 DC 05/13/21 13:21 75 ML Sodium Chloride 10 ml NEEDED PRN IV 05/13/21 12:45 05/13/21 15:23 DC 05/13/21 13:21 10 ML Sodium Chloride 100 ml ONCE ONCE IV 05/13/21 12:45 05/13/21 12:50 DC 05/13/21 13:21 100 ML Vital Signs/I&O 05/13/21 05/13/21 05/13/21 05/13/21 12:20 12:20 12:30 15:15 Temp 36.4 36.4 Pulse 86 83 76 93 90 Resp 18 18 B/P (MAP) 138/68 (91) 123/69 (87) 118/72 104/77 (86) 111/63 (79) Pulse Ox 97 O2 Delivery Room Air Room Air Progress Progress Note #1: Progress Note Check labs as well as CT scan of his chest since he had recent biopsy and concern for pneumonia or pneumothorax or PE. Give IV fluids for hydration since he is complaining of being dizzy and lightheaded when he stands up too fast. Progress Note #2: Progress Note Labs shows mild elevation of the white blood cell count to 12.1. He has an elevated CRP as well. His CT scan shows no pneumothorax or pneumonia but he has some groundglass appearance and blood products consistent with recent biopsy. Will check in with Dr. Vasquez with Pulmonary at just to ensure he does not want anything else done for shortness of breath, hemoptysis and cough with yellow colored sputum. Progress Note #3: Progress Note Patient was asking to go home rather than wait longer for call back from . Since he has remained stable and O2 sats 96-98% on room air will discharge to home and once I speak with provider from if they feel he needs other meds/treatments can call pt at home. [facility] Transfer center called back. Dr. Vasquez was not available so they had the application architect Certified Prosthetist/Orthotist and I reviewed the case quickly with him. He advised that with the CT not showing pneumothorax or pneumonia that he may have COPD exacerbation post biopsy and if he has worsening cough, fever, change in color of sputum or it is getting malodorous then may need antibiotic and steroid for COPD exacerbation. Pt did report some mild yellow green color to sputum along with hemoptysis but states that was what he was told to expect when he had Biopsy last week. Will defer steroid and antibiotics for now as pt was not feeling like he needed to be here and only came because his Mom called [facility] clinic and was told to come to ED because of O2 sats at 82% Diagnostic Imaging Diagonstic Imaging: CT Plain Films/CT/US/NM/MRI: chest Comments NAME: ALEA COYNE JR MED REC#: [id number] PT STATUS: REG ER : 1970 PHYSICIAN: SERGE LIGHT MD ADMIT DATE: 05/13/21/ER FS Draft Date of Exam:05/13/21 CT CHEST W EXAMINATION: CT chest with intravenous contrast. TECHNIQUE: Multiple contiguous axial images were obtained through the chest after the uneventful administration of intravenous contrast. All CT scans use one or more of the following dose optimizing techniques: automated exposure control, MA and/or KvP adjustment based on patient size and exam type or iterative reconstruction. HISTORY: Short of breath and chest pain after lung biopsy. COMPARISON: 04/25/2021 FINDINGS: There is a right upper lobe mass measuring 4.0 x 2.8 cm, previously 3.1 x 1.9 cm. There is surrounding groundglass in the right upper lobe particularly in the distal airway distribution. No other nodules or masses are seen. No pleural effusion. No pneumothorax. There is no axillary or supraclavicular lymphadenopathy. There is no mediastinal lymphadenopathy. Heart size is normal. There are no coronary artery calcifications. No pericardial effusion. Aorta is normal in caliber. Limited views of the upper abdomen are unremarkable. Gallbladder is absent. There are no suspicious osseous lesions. IMPRESSION: 1. Increase in size of right upper lobe mass. There is groundglass distal to the mass which may represent blood products in the setting of recent biopsy. No pneumothorax. Dictated on workstation # [id number] Dict: 05/13/21 1327 Trans: 05/13/21 1332 [id number] Interpreted by: ALEA ALVES MD Electronically signed by: Departure Impression Primary Impression: Cough with hemoptysis Additional Impressions: History of lung biopsy Pleuritic chest pain Disposition: HOME, SELF-CARE Condition: Stable Departure-Patient Inst. Decision time for Depature: 15:11 Referrals: DARREN GONCALVES MD (PCP/Family) Primary Care Physician Patient Instructions: Needle Biopsy of the Lung and Pleura, Pleuritic Chest Pain ED Add. Discharge Instructions: Continue with your care as directed after your biopsy. Stay well hydrated and get plenty of rest. Change positions slowly to help prevent getting dizzy or light headed and give your body a chance to adjust to the position change. All discharge instructions reviewed with patient and/or family. Voiced understanding. SERGE LIGHT MD May 13, 2021 12:38
[2021-05-13] MEDS ORDERED: IOHEXOL 350 MG/ML 100 ML (OMNIPAQUE 350) VIAL IV ONE (12:45)
[2021-05-13] MEDS ORDERED: HOLD METFORMIN - RECEIVED CONTRAST 20 ML VIAL IV SCH (12:45)
[2021-05-13] MEDS ORDERED: CATHETER FLUSH 10 ML SYR IV PRN (12:45)
[2021-05-13] MEDS ORDERED: NS 100 ML (IVPB) BAG IV ONE (12:45)
[2021-05-13 12:53] LABS: HEMATOCRIT 46 % (40-54); HEMOGLOBIN 16.5 g/dL (13.3-17.7); MEAN CORPUSCULAR HEMOGLOBIN 31 pg (25-34); MEAN CORPUSCULAR HGB CONC 36 g/dL (32-36); MEAN CORPUSCULAR VOLUME 88 fL (80-99); WHITE BLOOD COUNT 12.1 10^3/uL (4.3-11.0)
[2021-05-13 12:54] LABS: BASOPHILS % (AUTO) 0 % (0-10); EOSINOPHILS # (AUTO) 0.1 10^3/uL (0.0-0.3); EOSINOPHILS % (AUTO) 1 % (0-10); LYMPHOCYTES # (AUTO) 1.7 X 10^3 (1.0-4.0); LYMPHOCYTES % (AUTO) 14 % (12-44); MEAN PLATELET VOLUME 9.8 fL (9.0-12.2); MONOCYTES # (AUTO) 0.8 X 10^3 (0.0-1.0); MONOCYTES % (AUTO) 6 % (0-12); NEUTROPHILS # (AUTO) 9.5 X 10^3 (1.8-7.8); NEUTROPHILS % (AUTO) 79 % (42-75); PLATELET COUNT 183 10^3/uL (130-400)
[2021-05-13 13:11] LABS: CALCIUM 9.8 MG/DL (8.5-10.1); CREATININE SERUM 0.96 MG/DL (0.60-1.30); POTASSIUM 3.9 MMOL/L (3.6-5.0)
[2021-05-13 13:12] LABS: ALBUMIN 4.3 GM/DL (3.2-4.5); BILIRUBIN,TOTAL 0.8 MG/DL (0.1-1.0); TOTAL PROTEIN 7.3 GM/DL (6.4-8.2)
--- NOTE | 2021-05-13 13:32 | Diagnostic Imaging Report ---
EXAMINATION: CT chest with intravenous contrast. TECHNIQUE: Multiple contiguous axial images were obtained through the chest after the uneventful administration of intravenous contrast. All CT scans use one or more of the following dose optimizing techniques: automated exposure control, MA and/or KvP adjustment based on patient size and exam type or iterative reconstruction. HISTORY: Short of breath and chest pain after lung biopsy. COMPARISON: 04/25/2021 FINDINGS: There is a right upper lobe mass measuring 4.0 x 2.8 cm, previously 3.1 x 1.9 cm. There is surrounding groundglass in the right upper lobe particularly in the distal airway distribution. No other nodules or masses are seen. No pleural effusion. No pneumothorax. There is no axillary or supraclavicular lymphadenopathy. There is no mediastinal lymphadenopathy. Heart size is normal. There are no coronary artery calcifications. No pericardial effusion. Aorta is normal in caliber. Limited views of the upper abdomen are unremarkable. Gallbladder is absent. There are no suspicious osseous lesions. IMPRESSION: 1. Increase in size of right upper lobe mass. There is groundglass distal to the mass which may represent blood products in the setting of recent biopsy. No pneumothorax. Dictated by: Dictated on workstation # [id number]
[2021-05-13 15:15] VITALS: BP 118/72
== END 2021-05-13 15:16 | disposition home or self-care (01) ==
LOC: EDUNIT# 12:12 → ER FS 12:13
DX: R04.2 Hemoptysis (principal); R07.81 Pleurodynia; J44.9 Chronic obstructive pulmonary disease, unspecified; I25.2 Old myocardial infarction
CPT/HCPCS: 36415; 71260; 80053; 85025; 86141; 93041

== ENCOUNTER 2021-05-27 16:22 | Emergency (ER) | payer MEDICAID ==
[~2021-05-27] VITALS: Ht 190.5 cm; Wt 103.0 kg
--- OUTSIDE RECORDS SUMMARY | 2021-05-27 16:28 | XMS REPORT | Clinical Summary ---
Author Author [facility] Organization [facility] Address Unknown Phone Unavailable Care Team Providers Care Senior Scrum Master Name Role Phone No Pcp, Na PCP Unavailable Source Comments Some departments are not documenting in the electronic medical record. If you d o not see the information that you expected, contact Release of Information in [facility] [employer] Information Management department at [phone] for further assistan ce in locating additional records.[facility] Allergies Comments Active Allergy Reactions Severity Noted [...] Encounters Care Team Description Date Type Specialty Brea Shankar MD Results 05/19/2021 Telephone Pulmonology Brea Shankar MD Results 05/14/2021 Telephone Pulmonology Jass Vasquez MD Results 05/14/2021 Telephone Pulmonology Arrived 05/13/2021 Hospital Radiology Encounter Vinicio Campos MD Hemoptysis 05/13/2021 Telephone Pulmonology Ynes Norris MD 05/09/2021 Anesthesia Event Jass Vasquez MD BRONCHOSCOPY DIAGNOSTIC WITH/ WITHOUT CE LL WASHING - FLEXIBLE 05/09/2021 Surgery Jass Vasquez MD Mass of upper lobe of right lung 05/09/2021 Hospital Encounter 05/09/2021 Travel Jass Vasquez MD Results 05/07/2021 Telephone Urgent Care Jass Vasquez MD 05/06/2021 Hospital Lab Encounter Alphonso Olson MD [...] MD Care Coordination 04/24/2021 Telephone Pulmonology Margot Mendieta RN Malignant neoplasm of upper lobe of righ t lung (HCC) (Primary Dx) 04/21/2021 Orders Only Radiology Margot Mendieta RN Referral 04/17/2021 Telephone Radiology 03/25/2021 Hospital Radiology Encounter from Last 3 Months Surgical History Surgery Date Site/Laterality Comments SHOULDER SURGERY 11/22/2017 Right HX KNEE SURGERY Bilateral HX CHOLECYSTECTOMY 08/30/2015 - 08/29/2016 HERNIA REPAIR TESTICLE SURGERY BRONCHOSCOPY 05/09/2021 Bronchus/N/A BRONCHOSCOPY DI AGNOSTIC WITH/ WITHOUT CELL WASHING - FLEXIBLE performed by Blanca Vasquez MD at [facility] OR BRONCHOSCOPY 05/09/2021 Bronchus/N/A BRONCHOSCOPY WI TH IMAGE - GUIDED NAVIGATION - FLEXIBLE performed by Jass Vasquez MD at [facility] OR BRONCHOSCOPY 05/09/2021 Bronchus/N/A BRONCHOSCOPY WI TH BRONCHIAL ALVEOLAR LAVAGE - FLEXIBLE performed by Jass Vasquez MD at [facility] OR BRONCHOSCOPY 05/09/2021 Bronchus/N/A BRONCHOSCOPY WI TH ENDOBRONCHIAL ULTRASOUND GUIDED TRANSTRACHEAL/ TRANSBRONCHIAL SAMPLING - 3 OR MORE MEDIASTINAL/ HILAR LYMPH NODE STATIONS/ STRUCTURE - FLEXIBLE performed by Blanca Vasquez MD at [facility] OR BRONCHOSCOPY 05/09/2021 Bronchus/N/A BRONCHOSCOPY WI TH TRANSBRONCHIAL LUNG BIOPSY - FLEXIBLE - SINGLE LOBE performed by Jass Martini MD at [facility] OR BRONCHOSCOPY 05/09/2021 Bronchus/N/A BRONCHOSCOPY WI TH TRANSBRONCHIAL NEEDLE ASPIRATION AND BIOPSY TRACHEA/ MAIN STEM/ LOBAR BR ONCHUS - FLEXIBLE performed by Jass Vasquez MD at [facility] OR Medical History Medical History Date Comments [...] 2019 VACCINE (1 of 2) INFLUENZA VACCINE 03/30/2021 Procedures Comments Procedure Name Priority Date/Time Associated Diag nosis CT CHEST EXTERNAL IMAGING Routine 05/13/2021 12:00 AM CDT HC LVL IV SRG PTH, GROSS Routine 05/09/2021 & MICRO 1:30 PM CDT HC CELL BLOCK-CYTOLOGY Routine 05/09/2021 1:15 PM CDT BRONCHOSCOPY WITH 05/09/2021 Mass of upper lobe [...] PM CDT BRONCHOSCOPY 05/09/2021 11:57 AM CDT TELEMETRY STRIPS-SCAN 05/09/2021 12:00 AM CDT PROCEDURE RECORD-SCAN 05/09/2021 12:00 AM CDT HC CBC,AUTOMATED Routine 05/06/2021 Mass of upper lobe of 5:29 PM CDT right lung HC BASIC METABOLIC PANEL Routine 05/06/2021 Mass of upper lobe of 5:29 PM CDT right lung COVID-19 (SARS-COV-2) PCR Routine 05/06/2021 Enco unter for screening 5:13 PM CDT laboratory testing for COVID-19 virus in asymptomatic patient NM PET/CT EXTERNAL Routine 03/25/2021 IMAGING 12:00 AM CDT from Last 3 Months Results * CT CHEST EXTERNAL IMAGING (05/13/2021 12:00 AM CDT) Specimen Narrative Performed At This order has been auto finalized and does not contain a result. * PATHOLOGY SURGICAL < 5 SPECIMENS (05/09/2021 1:30 PM CDT) PATHOLOGY [email or web address] Department of Pathology and Laboratory Medicine [address] [place] [address] Surgical Pathology Office: [phone] SURGICAL PATHOLOGY REPORT NAME: ALEA COYNE SURG PATH #: [id number] MR #: [id number] SPECIMEN CLASS: SR BILLING #: [id number] ALT ID #: LOCATION: [facility] DATE OF PROCEDURE: 05/09/2021 AGE: 51 SEX: M DATE RECEIVED: 05/09/2021 : 1970 TIME RECEIVED: 13:35 PHYSICIAN: BREA SHANKAR MD DATE OF REPORT: 05/13/2021 COPY TO: JASS VASQUEZ MD DATE OF PRINTIN05/19/2021 Procedures/Addenda Addendum Date Ordered: 05/19/2021 Status: Signed Out Date Complete: 05/19/2021 By: Jennifer El MD, PhD Date Reported: 05/19/2021 Addendum Diagnosis The diagnosis is unchanged. Addendum Comment PD-L1: Block: A1 Tumor Proportion Score (TPS): <1% TPS less than 1%: Yes Comment: PD-L1 test name: DAKO PD-L1 IHC 22C3 pharmDX Cell types evaluated: Tumor cells FDA status: Nurses Director ############################## ############################## ############ Final Diagnosis: A. "RUL mass", biopsy: Squamous cell carcinoma, keratinizing. See comment. Comment: Immunohistochemical stains show the tumor cells are positive for p40, and negative for DASIA-3 and TTF-1 supporting the above diagnosis. Additional stain for PD-L1 will be performed and reported in an addendum. Pursuant to the Certified Phlebotomist Program at the [facility] Pathology Department, selected slides from this case have been concurrently reviewed by the following pathologist: Dr. Bernstein who agrees with the final diagnosis. Attestation: By this signature, I attest that I have personally formulated the final interpretation expressed in this report and that the above diagnosis is based upon my examination of the slides and/or other material indicated in this report. +++ +++ ksw/05/09/2021 ############################## ############################## ############ Material Received: A: RUL mass History: 51-year-old male with history of RUL mass Gross Description: A. Received in formalin labeled "RUL" is a 0.5 x 0.3 x 0.2 cm aggregate of irregular, pale barragan soft tissue fragments. The specimen is entirely submitted in cassettes A1 and A2. The specimen is placed in formalin at 13:05 on 05/09/2021. (cg) cg/05/09/2021 If immunohistochemical stains and/or in situ hybridization are cited in this report, the performance characteristics were determined by the Department of Pathology and Laboratory Medicine of the [facility] ([employer]) in compliance with CLIA'88 regulations. Some of these tests rely on the use of "analyte specific reagents" and are subject to specific labeling requirements by the FDA. The stains are performed on formalin-fixed, paraffin-embedded tissue, unless otherwise stated. Known positive and negative control tissues demonstrate appropriate staining. Results should be interpreted with caution given the likelihood of false negativity on decalcified specimens. This testing was developed by the Department of Pathology and Laboratory Medicine of the [facility]. It has not been cleared or approved by the FDA. The FDA has determined that such clearance or approval is not necessary. Specimen Other (Specify) Performing Organization Address City/State/ZIP Code P hope Number [facility] [address] [place] [address] * CYTOLOGY FNA LYMPH NODE (05/09/2021 1:15 PM CDT) Cytology [facility] [email or web address] Department of Pathology and Laboratory Medicine [address] [place] [address] Surgical Pathology Office: [phone] CYTOLOGY REPORT NAME: DORETHAALEA Jerez SURG PATH #: [id number] MR #: [id number] ALT ID #: BILLING #: [id number] LOCATION: [facility] DATE OF PROCEDURE: 05/09/2021 AGE: 51 SEX: M DATE RECEIVED: 05/09/2021 : 1970 TIME RECEIVED: 13:32 PHYSICIAN: BREA SHANKAR MD DATE OF REPORT: 05/13/2021 COPY TO: JASS VASQUEZ MD DATE OF PRINTIN05/13/2021 Material Received: A: FNA Lymph Node - 11RS History: 51-year-old male with a lung mass. Gross Description: (2 DQ direct smear, 2 Pap direct smear,1 cell block) Rapid determination of adequacy was performed by the electronics engineering professor, JESSICA, on Diff-Quik stained slide(s). Passes one and three were not adequate for evaluation. Passes two and four were all in saline for cell block. ############################## ############################## ############ Final Diagnosis: A. Lymph Node, 11RS, EBUS-FNA: Low cellularity aspirate comprising a polymorphous population of lymphocytes. No carcinoma identified in the sampled specimen. Comment: A cell block is prepared and examined microscopically; it contains insufficient tissue for further testing. Attestation: By this signature, I attest that I have personally formulated the final interpretation expressed in this report and that the above diagnosis is based upon my examination of the slides and/or other material indicated in this report. +++Electronically Signed Out By+++ kh/05/12/2021 Interpreted by: LENA Peter MD, Fellow Specimen Lymph Node (Specify) Performing Organization Address City/State/ZIP Code P hope Number MAIN LAB [address] [place] [address] * CT CHEST WO CONTRAST (05/09/2021 12:30 [...] (05/09/2021 11:57 AM CDT) Provation Patient Name: Alea KUMARI OTHER Report Procedure Date: 05/09/2021 RESULTS 11:57 AM CSN: [id number] Date of : 1970 Gender: Male Attending Physician: Jass Vasquez MD Procedure: Bronchoscopy Indications: Right upper lobe mass Providers: Jass Vasquez MD (Doctor), Brea Shankar MD (Fellow), Akbar Valderrama RN (Nurse), Bryan Munroe (Buckle Sewer Machine) Referring Physician: Rebecca Rea Medications: General Anesthesia [...] electronically signed and finalized this document. MD Brea Vazquez MD 05/09/2021 1:33:40 PM Number of Addenda: 0 Note Initiated On: 05/09/2021 11:57 AM Specimen Performing Organization Address City/State/ZIP Code P hope Number [facility] OTHER RESULTS * TELEMETRY STRIPS-SCAN (05/09/2021 12:00 AM CDT) Narrative Performed At This result has an attachment that is n ot available. Ordered by an unspecified provider. * PROCEDURE RECORD-SCAN (05/09/2021 12:00 AM CDT) Narrative Performed At This result has an attachment that is n ot available. Ordered by an unspecified provider. * CBC (05/06/2021 5:29 PM CDT) White [...] LAB MCHC 34.0 32.0 - 36.0 G/DL MAIN LAB RDW 13.8 11 - 15 % [facility] Platelet Count 189 150 - 400 K/UL [facility] MPV 8.0 7 - 11 FL [facility] Specimen Blood Performing Organization Address City/State/ZIP Code P hope Number [facility] [address] [place] [address] * BASIC METABOLIC PANEL (05/06/2021 5:29 PM [...] LAB Calcium 9.9 8.5 - 10.6 MG/DL MAIN LAB eGFR Non >60 >60 mL/min MAIN LAB Comment: [place] The eGFR is not validated f or use in drug dosing adjustments. Continue to use estimated creatinine clearance per dosing reference text. Please contact the Clinical Pharmacist for questions. eGFR >60 >60 mL/min [facility] [place] Comment: The eGFR is not validated for use in drug dosing adjustments. Continue to use estimated creatinine clearance per dosing reference text. Please contact the Clinical Pharmacist for questions. Specimen Blood Performing Organization Address City/[facility] P hope Number MAIN LAB [address] [place] [address] * COVID-19 (SARS-COV-2) PCR (05/06/2021 5:13 PM CDT) COVID-19 FLOCKED SWAB [facility] (SARS-CoV-2) NASOPHARYNGEAL PCR Source COVID-19 NOT DETECTED DN-NOT DETECTED [facility] (SARS-CoV-2) Comment: PCR This [...] Performance characteristics have been verified by the [facility] Clinical Laboratories. Fact sheet for providers: https://www.fda.gov/media/6900 02/download Fact sheet for patients: https://www.fda.gov/media/9040 81/download Specimen Flocked Swab - Nasopharyngeal Performing Organization Address City/State/ZIP Code P hope Number [facility] [address] [place] [address] * NM PET/CT EXTERNAL IMAGING (03/25/2021 12:00 AM CDT) Specimen Narrative Performed At This order has been auto finalized and does not contain a result. 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 necessary based on Dx
--- OUTSIDE RECORDS SUMMARY | 2021-05-27 16:28 | XMS REPORT | Encounter Summary ---
Author Author [facility] Organization [facility] Address Unknown Phone Unavailable Care Team Providers Care Oracle Specialist Name Role Phone No Pcp, Na PCP Unavailable Reason for Visit * Reason Onset Date Comments Results 05/14/2021 Encounter Details Care Team Description Date Type Department Tiffany Shankar MD [address] [place] [address] Results 05/14/2021 Telephone Pulmonology: Palmer mayorga, [facility] [address] [place] [address] [address] 4, [address] [address] Social History Date Tobacco Use [...] Telephone Encounter - Reji Honeycutt RN - 05/16/2021 10:26 AM CDT Images from the original note were not included. Tiffany Shankar MD You; Tenisha Burleson, AMY; Jass Vasquez MD 2 days ag o AJ Reji and Tenisha - Can you all help with sending the results to his PCP in [place] (Dr. Cassi Goncalves) and his referring Pulmnologist in [place]? Dr. Vasquez - Patient would like to follow up here for further management. I'm n ot sure the best next step in terms of referral. Would he be either surgery vs. SBRT even though the mass is proximal with endobronchial involvement? He was burak ble to perform PFTs and I'm really unsure about his other medical history. It so unds like he may have some newly diagnosed cardiac issues. Do you think it would be best to just start with a referral to Oncology or do you want me to send to CTS +/- Rad Onc? Thanks! Tiffany Bronch results faxed to pcp, Cassi Goncalves at F: [phone] PH: [phone]- [facility] Bronch results faxed to referring provider, JASMINA Murphy ([facility]) at [phone]. Reji Honeycutt RN * Telephone Encounter - Tiffany Shankar MD - 05/14/2021 4:27 PM CDT Called patient and his mother to discuss results of recent bronchoscopy. RUL mas s with endobronchial involvement consistent with squamous cell carcinoma. LNs ne gative. Results shown below. Patient was referred by Pulmonary in [place], [place] but he would like to follow up at for further care. Told patient and mother t hat I would assist with referrals after discussing with staff. Final Diagnosis: A. "RUL mass", biopsy: Squamous cell carcinoma, keratinizing. See comment. Comment: Immunohistochemical stains show the tumor cells are positive for p40, and negative for DASIA-3 and TTF-1 supporting the above diagnosis. Additional stain for PD-L1 will be performed and reported in an addendum. Final Diagnosis: A. Lymph Node, 11RS, EBUS-FNA: Low cellularity aspirate comprising a polymorphous population of lymphocytes. No carcinoma identified in the sampled specimen. Comment: A cell block is prepared and examined microscopically; it contains insufficient tissue for further testing. documented in this encounter Plan of Treatment [...]
--- OUTSIDE RECORDS SUMMARY | 2021-05-27 16:28 | XMS REPORT | Encounter Summary ---
Author Author [facility] Organization [facility] Address Unknown Phone Unavailable Care Team Providers Care Optoelectronic Technician Name Role Phone No Pcp, Na PCP Unavailable Reason for Referral * Consult, Test & Treat (Urgent) Referred By Contact Referred To Contact Status Reason Specialty Diagnoses / Procedures Jass Vasquez MD [address] [facility] [address] [address] Cc Radiation Therapy [address] [facility] [place] [address] Closed Specialty Services Radiation Diagnoses Required Therapy Malignant neoplasm of upper lobe of right lung (HCC) Answer Question New diagnosis of squamous cell carcinoma Referral Comments New diagnosis of squamous cell carcinoma of the lung. S/p EBUS which was negative. Suspect T2N0 based on size. Has endobronchial involvement in the proximal aspect of the posterior segment of RUL. Unable to complete PFTs at OSH due to syncope. Also reported a new diagnosis of CHF which is unclear. Unclear his fitness or eligibility for consideration of CTS/surgical treatment at this time but may warrant CTS evaluation. Also placing Onc referral. Electronically signed by Jass Vasquez MD at * Consult, Test & Treat (Urgent) Referred By Contact Referred To Contact Status Reason Specialty Diagnoses / Procedures Jass Vasquez MD [address] [facility] [address] [place] [address] Cc - Ww Cl Exm/Proc Rm [address] [facility] [address] [place], [place] Authorized Specialty Services Oncology Diagnoses Required Malignant neoplasm of upper lobe of right lung (HCC) Comments New diagnosis of squamous cell carcinoma of the lung. S/p EBUS which was negative. Suspect T2N0 based on size. Has endobronchial involvement in the proximal aspect of the posterior segment of RUL. Unable to complete PFTs at OSH due to syncope. Also reported a new diagnosis of CHF which is unclear. Unclear his fitness or eligibility for consideration of CTS/surgical treatment at this time but may warrant CTS evaluation. Also placing Rad Onc referral. Electronically signed by Jass Vasquez MD at Reason for Visit * Reason Onset Date Comments Results 05/19/2021 Encounter Details Care Team Description Date Type Department Tiffany Shankar MD [address] [place] [address] Results 05/19/2021 Telephone Pulmonology: Palmer mayorga, [facility] [address] [place] [address]. [address] 4, [address] [address] Social History Date Tobacco Use [...] Telephone Encounter - Tenisha Burleson RN - 05/27/2021 4:20 PM CDT Returned phone call to Allen with [facility] Pulmonary and [place]. Tenisha nelson RN * Telephone Encounter - Kourtney Chan MA,CCC-OPHTHALMIC LENS INSPECTOR - 05/20/2021 4:25 PM CDT Bronch report and results, office note and telephone encounter faxed to [facility]. Routing to Tenisha Burleson RN T * Telephone Encounter - Tenisha Burleson RN - 05/20/2021 3:43 PM CDT Images from the original note were not included. Spoke with patient and discussed follow up plan. Patient stated he wanted to fo llow with oncology in [place], [place]. He is having difficulty with transportatio n and feels he is unable to find reliable transportation to follow up at . He requested to have information sent to Dr Deni Beckman in [place] and to his p ulmonologist. Information already faxed to Rebecca FREEDMAN with [facility] on 05/16. He has an appt with pulmonology on 05/28 and his PCP on 05/29. Will request to have OVN, bronch report and results faxed to Dr Beckman at [phone] ([facility]). Referral to oncology cancelled and MRI head ca ncelled. Dr Shankar updated. Tenisha Burleson RN * Telephone Encounter - Tiffany Shankar MD - 05/19/2021 7:53 PM CDT Called to confirm plan post biopsy results after discussing with staff. Patient has already been informed of the biopsy results and stated that he wanted to be referred to . Will refer to Oncology, Radiation Oncology, and order an MRI bra in to complete staging. He already had a PET at an OSH. Unable to reach patient but able to discuss with mother. Will try and reach patient again tomorrow. Neha ent lives in [place] and will likely want to have MRI completed closer to critical access hospital. documented in this encounter Plan of Treatment Order Schedule Name Type Priority Associated Diag noses Ordered: 05/19/2021 AMB REFERRAL TO ONCOLOGY Outpatient Routine Maldonna dickens neoplasm of Referral upper lobe of right lung (HCC) Ordered: 05/19/2021 AMB REFERRAL TO RADIATION Outpatient Routine Maya tess neoplasm of ONCOLOGY Referral upper lobe of right lung (HCC) documented [...]
--- OUTSIDE RECORDS SUMMARY | 2021-05-27 16:28 | XMS REPORT | Encounter Summary ---
Author Author [facility] Organization [facility] Address Unknown Phone Unavailable Care Team Providers Care Acting Professor Name Role Phone No Pcp, Na PCP Unavailable Reason for Visit * Reason Onset Date Comments Results 05/14/2021 Encounter Details Care Team Description Date Type Department Jass Vasquez MD [address] [facility] [place] [address] [place] [address] Results 05/14/2021 Telephone Pulmonology: Palmer Rocha ampus, [facility] [address] [address] Social History Date Tobacco Use [...] Telephone Encounter - Reji Honeycutt RN - 05/14/2021 3:50 PM CDT Bronchoscopy results are now available. Staff message sent to Dr. Shankar and Dr. Bertha bailey to contact pt with results. Reji Honeycutt RN documented in this encounter [...]
--- OUTSIDE RECORDS SUMMARY | 2021-05-27 16:29 | XMS REPORT | Encounter Summary ---
Author Author [facility] Organization [facility] Address Unknown Phone Unavailable Care Team Providers Care News Content Specialist Name Role Phone No Pcp, Na PCP Unavailable Encounter Details Care Team Description Date Type Department Jass Vasquez MD [address] Ortho/Med Pavilion Lvl 5A [place] [address] 05/06/2021 Hospital Laboratory: Main Ca mpus, Encounter Medical Pavilion [address], [address] [place] [address] Social History Date Tobacco Use Types Packs/Day [...] Organization Address City/State/ZIP Code P hope Number [facility] [address] [place] [address] * BASIC METABOLIC PANEL (05/06/2021 5:29 PM CDT) Sodium 141 137 - 147 MMOL/L [facility] Potassium 5.1 3.5 - 5.1 MMOL/L [facility] Chloride 105 98 - 110 MMOL/L [facility] CO2 28 21 - 30 MMOL/L [facility] Anion Gap 8 3 - 12 [facility] Glucose 91 70 - 100 MG/DL [facility] Blood Urea 12 7 - 25 MG/DL [facility] Nitrogen Creatinine 1.23 0.4 - 1.24 MG/DL [facility] Calcium 9.9 8.5 - 10.6 MG/DL MAIN LAB eGFR Non >60 >60 mL/min [facility] Comment: [place] The eGFR is not validated f or use in drug dosing adjustments. Continue to use estimated creatinine clearance per dosing reference text. Please contact the Clinical Pharmacist for questions. eGFR >60 >60 mL/min [facility] [place] Comment: The eGFR is not validated for use in drug dosing adjustments. Continue to use estimated creatinine clearance per dosing reference text. Please contact the Clinical Pharmacist for questions. Specimen Blood Performing Organization Address City/[facility] P hope Number [facility] [address] [place] [address] * COVID-19 (SARS-COV-2) PCR (05/06/2021 5:13 PM CDT) Pathologist [facility] COVID-19 FLOCKED SWAB [facility] (SARS-CoV-2) NASOPHARYNGEAL PCR Source COVID-19 NOT DETECTED DN-NOT DETECTED [facility] (SARS-CoV-2) Comment: PCR This assay is [...] Performance characteristics have been verified by the [facility]. Fact sheet for providers: https://www.fda.gov/media/8570 78/download Fact sheet for patients: https://www.fda.gov/media/2229 81/download Specimen Flocked Swab - Nasopharyngeal Performing Organization Address City/State/ZIP Code P hope Number MAIN LAB [address] [place] [address] documented in this encounter Visit Diagnoses Diagnosis [...]
--- OUTSIDE RECORDS SUMMARY | 2021-05-27 16:29 | XMS REPORT | Encounter Summary ---
Author Author [facility] Organization [facility] Address Unknown Phone Unavailable Care Team Providers Care Worm Farm Laborer Name Role Phone No Pcp, Na PCP Unavailable Reason for Visit * Reason Onset Date Comments Results 05/07/2021 Encounter Details Care Team Description Date Type Department Jass Vasquez MD [address] Ortho/Med Pavilion Lvl [address] [place] [address] [phone] Results 05/07/2021 Telephone Specialty Screening : [facility] [address] [address] [facility] [address] [place] [address] Social History Date Tobacco Use Types Packs/Day [...]
--- OUTSIDE RECORDS SUMMARY | 2021-05-27 16:29 | XMS REPORT | Encounter Summary ---
Author Author [facility] Organization [facility] Address Unknown Phone Unavailable Care Team Providers Care Lens Matcher Name Role Phone No Pcp, Na PCP [...]
--- OUTSIDE RECORDS SUMMARY | 2021-05-27 16:29 | XMS REPORT | Encounter Summary ---
Author Author [facility] Organization [facility] Address Unknown Phone Unavailable Care Team Providers Care Head Of Commission Department Name Role Phone No Pcp, Na PCP Unavailable Reason for Visit * Reason Comments Abnormal Lung Imaging * Consult, Test & Treat (Routine) Referred By Contact Referred To Contact Status Reason Specialty Diagnoses / Procedures Rebecca Rea, WOOD COATER [address] [place] [address] New Request Pulmonology Diagnoses Abnormal findings on diagnostic imaging of lung Encounter Details Care Team Description Date Type Department Dimas Trujillo MD [address] Ortho/Med Pavilion Lvl [address] [place] [id number] Jass Vasquez MD [address] Ortho/Med Pavilion Lvl [address] [place] [address] [phone] Mass of upper lobe of right lung (Primar y Dx); Tobacco abuse; Chronic obstructive pulmonary disease, unspecified COPD type (HCC) 05/06/2021 Office Visit Pulmonology: Palmer Rocha ampus, Medical Pavilion [address], [address] [address] Social History Date Tobacco Use [...] 11:15am. This will be at the Main [place] at [address] [place] [address]. - Nothing to eat or drink after [...] in at admitting, just inside the main [facility] entrance , located at [address] [place] [address], two and a half (2 1/2 ) hours before your procedure time. There is a parking garage (P3) located acros s from the entrance. - you will need a furniture delivery driver to and from the procedure. [...] after business hours, weekends, or holidays: Call [phone] and request for the Mathematics Education Professor to be paged. - To cancel, change, or schedule a clinic appointment: Call our Pulmonary Sche[place] l[place] at Pulmonary Clinic Nurse Coordinator-Tenisha Burleson RN - Office: [phone] fa x: [phone] documented in this encounter Progress Notes * [...] mass. Patient was referred from Pulmonary in [place], [place] for a PET avid RUL mas [...] visit, discussed case with Dr Valerie Shankar, [facility] fellow and concur with our fellow's documentation [...] 11:15am. This will be at the Main [place] at [address] [place] [address]. - Nothing to eat or drink after [...] the main hospital entrance , located at [address] [place] [address], two and a half (2 1/2 ) hours before your procedure time. There is a parking garage (P3) located acros s from the entrance. - you will need a furniture delivery driver to and from the procedure. [...] or holidays: Call and request for the Mathematics Education Professor to be paged. - To cancel, change, or schedule a clinic appointment: Call our Pulmonary Sche[place] l[place] at Pulmonary Clinic Nurse Coordinator-Tenisha Burleson RN - Office: [phone] fa x: [phone] documented in this encounter Miscellaneous Notes * [...]
--- OUTSIDE RECORDS SUMMARY | 2021-05-27 16:29 | XMS REPORT | Encounter Summary ---
Author Author [facility] Organization [facility] Address Unknown Phone Unavailable Care Team Providers Care Insurance Service Representative Name Role Phone No Pcp, Na PCP Unavailable Encounter Details Care Team Description Date Type Department Jass Vasquez MD [address] Ortho/Med Pavilion Lvl [address] [place] [address] Mass of upper lobe of right lung (Primar y Dx); Encounter for screening laboratory testing for COVID-19 virus in asymptomatic patient 05/06/2021 Prep for Case Pulmonology: Main C ampus, Medical Pavilion [address], [address] [address] Social History Date Tobacco Use [...] >60 >60 mL/min [facility] Comment: [place] The eGFR is not validated f or use in drug dosing adjustments. Continue to use estimated creatinine clearance per dosing reference text. Please contact the Clinical Pharmacist for questions. eGFR >60 >60 mL/min [facility] [place] Comment: The eGFR is not validated for use in drug dosing adjustments. Continue to use estimated creatinine clearance per dosing reference text. Please contact the Clinical Pharmacist for questions. Specimen Blood Performing Organization Address City/State/ZIP Code P hope Number [facility] [address] [place] [address] * CBC (05/06/2021 5:29 PM CDT) Pathologist [facility] White Blood 8.3 4.5 - [...] P hope Number [facility] [address] [place] [address] * COVID-19 (SARS-COV-2) PCR (05/06/2021 5:13 PM CDT) COVID-19 FLOCKED SWAB MAIN LAB (SARS-CoV-2) NASOPHARYNGEAL PCR Source COVID-19 NOT DETECTED DN-NOT DETECTED [facility] (SARS-CoV-2) Comment: PCR This assay [...] Performance characteristics have been verified by the [facility] Clinical Laboratories. Fact sheet for providers: https://www.fda.gov/media/1370 78/download Fact sheet for patients: https://www.fda.gov/media/4564 81/download Specimen Flocked Swab - Nasopharyngeal Performing Organization Address City/State/ZIP Code P hope Number MAIN LAB [address] [place] [address] documented in this encounter Visit Diagnoses Diagnosis [...]
--- OUTSIDE RECORDS SUMMARY | 2021-05-27 16:29 | XMS REPORT | Encounter Summary ---
Author Author [facility] Organization [facility] Address Unknown Phone Unavailable Care Team Providers Care Logistics Coordinator Name Role Phone No Pcp, Na PCP Unavailable Reason for Visit * Reason Onset Date Comments Hemoptysis 05/13/2021 Encounter Details Care Team Description Date Type Department Vinicio Campos MD [address] Ortho/Med Pavilion Lvl [address] [place] [address] Hemoptysis 05/13/2021 Telephone Pulmonology: Main C ampus, Medical Pavilion [address], [address] [address] Social History Date Tobacco Use [...] encounter Miscellaneous Notes * Telephone Encounter - Vinicio Campos MD - 05/13/2021 4:15 PM CDT I was contacted by transfer center that the patient was in the emergency departm ent in [place], [place]. ED physician there requested to speak with delivery director at . Patient underwent navigational bronchoscopy on 05/09, and was seen in the ED today for shortness of breath and mild hemoptysis, which has not worsened si nce the bronchoscopy. He had a CT chest performed today in [place], per the p hysician there the CT showed some ground glass opacities near the MARVEL nodule cecilia t was consistent with a recent biopsy, but no new infiltrate or pneumothorax. ED physician plans to discharge patient home as he is on room air and not distre ssed. Patient will be prescribed course of steroids and antibiotics by that [facility] ician. Patient to contact procedural service if not improving or if hemoptysi s worsens. documented in this encounter Plan of Treatment [...]
--- OUTSIDE RECORDS SUMMARY | 2021-05-27 16:29 | XMS REPORT | Encounter Summary ---
Author Author [facility] Organization [facility] Address Unknown Phone Unavailable Care Team Providers Care Oil Refinery Operator Name Role Phone No Pcp, Na PCP Unavailable Reason for Visit * Auth/Cert Referred By Contact Referred To Contact Status Reason Specialty Diagnoses / Procedures Diagnoses Mass of upper lobe of right lung Mass of upper lobe of right lung [R91.8] P rocedures CA BRNCHSC INCL FLUOR GDNCE DX W/CELL WASHG SPX CA BRONCHOSCOPY W/CPTR-ASST IMAGE-GUIDED NAVIGATION CA BRNCHSC W/BRNCL ALVEOLAR LAVAGE CA BRNCHSC EBUS GUIDED SAMPL 3/> NODE STATION/STRUX CA BRONCHOSCOPY W/TRANSBRONCHIAL LUNG BX 1 LOBE CA BRONCHOSCOPY NEEDLE BX TRACHEA MAIN STEM&/BRON BRONCHOSCOPY [...] Date Type Department Jass Vasquez MD [address] Ortho/Med Pavilion Lvl [address] [place] [address] Mass of upper lobe of right lung 05/09/2021 Hospital Operating Room: [facility] [address] [facility] [address] [place] [address] Social History Date Tobacco Use [...] performed on 05-06-21. Jass Vasquez MD Pager [phone] * Brea Shankar MD - 05/06/2021 4:00 PM CDT Subjective: History of Present Illness Alea Coyne Jr. is a 51 y.o. male with PMH of HLD, COPD, CAD, reported rec ent diagnosis of CHF, history of seizures (not on AEDs), ?history of pancreatic cancer in 2013, and current tobacco abuse referred for a PET avid RUL mass. Patient was referred from Pulmonary in [place], [place] for a PET avid RUL mas [...] obvious PET avid LAD Assessment and Plan: Alea Coyne Jr. is a 51 y.o. male with [...] with navigational bronchoscopy with biopsy on 05/09 Breacarmen Shankar MD ATTESTATION I personally performed the [...] 11:15am. This will be at the Main [place] at [address] [place] [address]. - Nothing to eat or drink after [...] in at admitting, just inside the main [facility] entrance , located at [address] [place] [address], two and a half (2 1/2 ) hours before your procedure time. There is a parking garage (P3) located acros s from the entrance. - you will need a rickshaw driver to and from the procedure. Only [...] or holidays: Call and request for the Field Mechanic/Site Lead to be paged. - To cancel, change, or schedule a clinic appointment: Call our Pulmonary Sche[place] lers at Pulmonary Clinic Nurse Coordinator-Tenisha Burleson RN - Office: [phone] fa x: [phone] documented in this encounter Plan of Treatment Not on filedocumented as of this encounter Procedures Comments Procedure Name Priority Date/Time Associated Diag nosis HC LVL IV SRG PTH, GROSS Routine [...] CDT PROCEDURE RECORD-SCAN 05/09/2021 12:00 AM CDT documented in this encounter Results * PATHOLOGY SURGICAL < 5 SPECIMENS (05/09/2021 1:30 PM CDT) PATHOLOGY [facility] [employer] [facility] [email or web address] Department of Pathology and Laboratory Medicine [address] [place] [address] Surgical Pathology Office: [phone] SURGICAL PATHOLOGY REPORT NAME: ALEA COYNE SURG PATH #: [id number] MR #: [id number] SPECIMEN CLASS: SR BILLING #: [id number] ALT ID #: LOCATION: [facility] DATE OF [...] Cell types evaluated: Tumor cells FDA status: Internal Audit Director ############################## ############################## ############ Final Diagnosis: A. "RUL mass", biopsy: Squamous cell carcinoma, keratinizing. See comment. Comment: Immunohistochemical stains show the tumor cells are positive for p40, and negative for DASIA-3 and TTF-1 supporting the above diagnosis. Additional stain for PD-L1 will be performed and reported in an addendum. Pursuant to the [facility] Program at the [facility] Pathology Department, selected slides from this case [...] of Pathology and Laboratory Medicine of the [facility] ([place]) in compliance with CLIA'88 regulations. [...] of Pathology and Laboratory Medicine of the [facility]. It has not been cleared or approved by the FDA. The FDA has determined that such clearance or approval is not necessary. Specimen Other (Specify) Performing Organization Address City/State/ZIP Code P hope Number [facility] [address] [place] [address] * CYTOLOGY FNA LYMPH NODE (05/09/2021 1:15 PM CDT) Cytology [facility] [email or web address] Department of Pathology and Laboratory Medicine [address] [place] [address] Surgical Pathology Office: [phone] CYTOLOGY REPORT NAME: ALEA COYNE SURG PATH #: [id number] MR #: [id number] ALT ID #: BILLING #: [id number] LOCATION: [facility] DATE OF PROCEDURE: 05/09/2021 AGE: [...] determination of adequacy was performed by the forensic specialist, JESSICA, on Diff-Quik stained slide(s). Passes one [...] Code P hope Number MAIN LAB [address] [place] [address] * CT CHEST WO CONTRAST (05/09/2021 12:30 [...] Report Procedure Date: 05/09/2021 RESULTS 11:57 AM [facility]: [id number] Date of : 1970 Gender: Male Attending Physician: Jass Vasquez MD Procedure: Bronchoscopy Indications: Right upper lobe mass Providers: Jass Vasquez MD (Doctor), Brea Shankar MD (Fellow), Akbar Valderrama RN (Nurse), Bryan Munroe (Printing Plate Clerk) Referring Physician: Rebecca Rea Medications: General Anesthesia [...] aspiration was also performed using an [employer] Limited[employer]ot 21 gauge needle in the right superior [...] ot available. Ordered by an unspecified provider. documented in this encounter Visit Diagnoses Diagnosis [...]
--- OUTSIDE RECORDS SUMMARY | 2021-05-27 16:29 | XMS REPORT | Encounter Summary ---
Author Author [facility] Organization [facility] Address Unknown Phone Unavailable Care Team Providers Care Intervention Teacher Name Role Phone No Pcp, Na PCP Unavailable Encounter Details Care Team Description Date Type Department Arrived 05/13/2021 Hospital Imaging: Main [facility], Encounter [facility] [address], [address] [place] [address] Social History Date Tobacco Use [...] EXTERNAL IMAGING Routine 05/13/2021 12:00 AM CDT documented in this encounter Results * CT CHEST EXTERNAL IMAGING (05/13/2021 [...]
--- OUTSIDE RECORDS SUMMARY | 2021-05-27 16:29 | XMS REPORT | Encounter Summary ---
Author Author [facility] Organization [facility] Address Unknown Phone Unavailable Care Team Providers Care Dock Operations Supervisor Name Role Phone No Pcp, Na PCP Unavailable Reason for Visit * Auth/Cert Referred By Contact Referred To Contact Status Reason Specialty Diagnoses / Procedures Diagnoses Mass of upper lobe of right lung Mass of upper lobe of right lung [R91.8] P rocedures ND BRNCHSC INCL FLUOR GDNCE DX W/CELL WASHG SPX ND BRONCHOSCOPY W/CPTR-ASST IMAGE-GUIDED NAVIGATION ND BRNCHSC W/BRNCL ALVEOLAR LAVAGE ND BRNCHSC EBUS GUIDED SAMPL 3/> NODE STATION/STRUX ND BRONCHOSCOPY W/TRANSBRONCHIAL LUNG BX 1 LOBE ND BRONCHOSCOPY NEEDLE BX TRACHEA MAIN STEM&/BRON BRONCHOSCOPY [...] Date Type Department Ynes Norris MD [id number] [place] [address] [phone] 05/09/2021 Anesthesia Operating Room: [facility] [address] [facility] [address] [place] [address] Anesthesia Record Responsible Anesthesiologist Anesthesia [...] mass. Patient was referred from Pulmonary in [place], [place] for a PET avid RUL mas [...] Blood Consent: consented Plan discussed with: anesthesiologist, TOBACCO WAREHOUSE AGENT and surgeon/proceduralist. documented in this encounter Plan [...]
--- OUTSIDE RECORDS SUMMARY | 2021-05-27 16:29 | XMS REPORT | Encounter Summary ---
Author Author [facility] Organization [facility] Address Unknown Phone Unavailable Care Team Providers Care Prepleater Name Role Phone No Pcp, Na PCP Unavailable Reason for Visit * Auth/Cert Referred By Contact Referred To Contact Status Reason Specialty Diagnoses / Procedures Diagnoses Mass of upper lobe of right lung Mass of upper lobe of right lung [R91.8] P rocedures NE BRNCHSC INCL FLUOR GDNCE DX W/CELL WASHG SPX NE BRONCHOSCOPY W/CPTR-ASST IMAGE-GUIDED NAVIGATION NE BRNCHSC W/BRNCL ALVEOLAR LAVAGE NE BRNCHSC EBUS GUIDED SAMPL 3/> NODE STATION/STRUX NE BRONCHOSCOPY W/TRANSBRONCHIAL LUNG BX 1 LOBE NE BRONCHOSCOPY NEEDLE BX TRACHEA MAIN STEM&/BRON BRONCHOSCOPY [...] Date Type Department Jass Vasquez MD [address] Ortho/Med [place]ilion [address] [place] [address] BRONCHOSCOPY DIAGNOSTIC WITH/ WITHOUT CE LL WASHING - FLEXIBLE 05/09/2021 Surgery Operating Room: [facility], [facility] [address] [place] [address] Surgery Details Trauma Case? Date/Time [...] FLEXIBLE Panel Surgeon Surgeon Role Service 1 Brea Shankar MD Fellow Pulmonary Medicine 1 Jass [...] performed on 05-06-21. Jass Vasquez MD Pager [phone] * Brea Shankar MD - 05/06/2021 4:00 PM CDT Subjective: History of Present Illness Alea Coyne Jr. is a 51 y.o. male with PMH of HLD, COPD, CAD, reported rec ent diagnosis of CHF, history of seizures (not on AEDs), ?history of pancreatic cancer in 2013, and current tobacco abuse referred for a PET avid RUL mass. Patient was referred from Pulmonary in [place], [place] for a PET avid RUL mas [...] visit, discussed case with Dr Valerie Shankar, [facility] fellow and concur with our [...] of 11:15am. This will be at the [facility] at [address] [place] [address]. - Nothing to eat or drink after [...] check in at admitting, just inside the [facility] entrance , located at [address] [place] [address], two and a half (2 1/2 ) hours before your procedure time. There is a parking garage (P3) located acros s from the entrance. - you will need a port cdl a driver to and from the procedure. Only [...] or holidays: Call and request for the Prior Authorization Nurse to be paged. - To cancel, change, or schedule a clinic appointment: Call our Pulmonary [place] at Pulmonary Clinic Nurse Coordinator-Tenisha Burleson RN - Office: [phone] fa x: [phone] documented in this encounter Plan of Treatment [...] SPECIMENS (05/09/2021 1:30 PM CDT) PATHOLOGY [facility] [email or web address] Department of Pathology and Laboratory Medicine [address] [place] [address] Surgical Pathology Office: [phone] SURGICAL PATHOLOGY REPORT NAME: ALEA COYNE SURG PATH #: [id number] MR #: [id number] SPECIMEN CLASS: SR BILLING #: [id number] ALT ID #: LOCATION: [facility] DATE OF [...] Cell types evaluated: Tumor cells FDA status: Deputy Head ############################## ############################## ############ Final Diagnosis: A. "RUL mass", biopsy: Squamous cell carcinoma, keratinizing. See comment. Comment: Immunohistochemical stains show the tumor cells are positive for p40, and negative for DASIA-3 and TTF-1 supporting the above diagnosis. Additional stain for PD-L1 will be performed and reported in an addendum. Pursuant to the [employer] Worker Program at the [facility] Pathology Department, selected slides from [...] of Pathology and Laboratory Medicine of the [facility] ([employer]) in compliance with CLIA'88 regulations. [...] of Pathology and Laboratory Medicine of the [facility]. It has not been cleared or approved by the FDA. The FDA has determined that such clearance or approval is not necessary. Specimen Other (Specify) Performing Organization Address City/State/ZIP Code P hope Number [facility] [address] [place] [address] * CYTOLOGY FNA LYMPH NODE (05/09/2021 1:15 PM CDT) Cytology [facility] [email or web address] Department of Pathology and Laboratory Medicine [address] [place] [address] Surgical Pathology Office: [phone] CYTOLOGY REPORT NAME: ALEA COYNE SURG PATH #: [id number] MR #: [id number] ALT ID #: BILLING #: [id number] LOCATION: [facility] DATE OF PROCEDURE: 05/09/2021 AGE: [...] determination of adequacy was performed by the transformation manager, JESSICA, on Diff-Quik stained slide(s). Passes one [...] in this report. +++Electronically Signed Out By+++ /05/12/2021 Interpreted by: LENA Peter MD, Fellow Specimen Lymph Node (Specify) Performing Organization Address City/State/ZIP Code P hope Number [facility] [address] [place] [address] * CT CHEST WO CONTRAST (05/09/2021 12:30 [...] Procedure Date: 05/09/2021 RESULTS 11:57 AM CSN: [id number] Date of : 1970 Gender: Male Attending Physician: Jass Vasquez MD Procedure: Bronchoscopy Indications: Right upper lobe mass Providers: Jass Vasquez MD (Doctor), Brea Shankar MD (Fellow), Akbar Valderrama RN (Nurse), Bryan Munroe (Education Department Registrar) Referring Physician: Rebecca Rea Medications: General Anesthesia [...] aspiration was also performed using an Olympus SnaptivaiShot 21 gauge needle in the right superior [...] 1308, Until Wed05/09/21 at 1632, Pain non-opioid: december b e used alone or in combination [...] SODIUM CHLORIDE 0.9 % IV SOLP (Cabinet 05/09/2021 Override) First Ordered Date Diet Count Last Ordered Date DISCHARGE DIET OTHER 1 05/09/2021 DISCHARGE DIET REGULAR 05/09/2021 First Ordered Date Nursing Count Last Ordered Date DISCHARGE ACTIVITY NORMAL 05/09/2021 DISCHARGE CONTACT 05/09/2021 DISCHARGE SIGNS/SYMPTOMS 1 [...]
[2021-05-27 17:28] LABS: BASOPHILS % (AUTO) 0 % (0-10); EOSINOPHILS # (AUTO) 0.1 10^3/uL (0.0-0.3); EOSINOPHILS % (AUTO) 0 % (0-10); HEMATOCRIT 40 % (40-54); HEMOGLOBIN 13.7 g/dL (13.3-17.7); LYMPHOCYTES # (AUTO) 1.5 10^3/uL (1.0-4.0); LYMPHOCYTES % (AUTO) 9 % (12-44); MEAN CORPUSCULAR HEMOGLOBIN 31 pg (25-34); MEAN CORPUSCULAR HGB CONC 35 g/dL (32-36); MEAN CORPUSCULAR VOLUME 89 fL (80-99); MEAN PLATELET VOLUME 8.8 fL (9.0-12.2); MONOCYTES # (AUTO) 0.9 10^3/uL (0.0-1.0); MONOCYTES % (AUTO) 6 % (0-12); NEUTROPHILS # (AUTO) 13.5 10^3/uL (1.8-7.8); NEUTROPHILS % (AUTO) 84 % (42-75); PLATELET COUNT 494 10^3/uL (130-400); WHITE BLOOD COUNT 16.2 10^3/uL (4.3-11.0)
[2021-05-27 17:37] LABS: POTASSIUM 3.7 MMOL/L (3.6-5.0)
[2021-05-27 17:38] LABS: CALCIUM 9.6 MG/DL (8.5-10.1)
[2021-05-27 17:42] LABS: CREATININE SERUM 0.83 MG/DL (0.60-1.30)
[2021-05-27 17:52] LABS: ATYPICAL LYMPHOCYTES 1 %; BLAST CELLS 1 %; LYMPHOCYTES % (MANUAL) 13 %; METAMYELOCYTES % 1 %; MICROCYTOSIS MODERATE; MONOCYTES % (MANUAL) 6 %; NEUTROPHILS % (MANUAL) 78 %; POLYCHROMASIA SLIGHT
--- NOTE | 2021-05-27 18:40 | Diagnostic Imaging Report ---
EXAMINATION: Portable erect AP chest at 6:23 PM INDICATION: Lung cancer, pneumonia The heart size is within normal limits and stable when compared to 04/25/2021. The previous exam did note a 2 x 3 cm rounded lesion lying just lateral to the right hilum. On this study, there is now a sizable 9.5 x 12.3 cm area of increased density extending from the right hilum to the periphery of the right midlung and right upper lobe. This may well be secondary to postobstructive pneumonia/atelectasis. The lungs are otherwise clear. The mediastinum is not widened. The osseous structures are intact. Metallic nipple rings are again noted. IMPRESSION: The appearance of the chest has worsened since the prior study as a sizable area of increased density has developed in the right upper lobe and right midlung. This may be secondary to postobstructive pneumonia/atelectasis. If further study is desired, then CT of the chest would be recommended. Dictated by: Dictated on workstation # [id number]
[2021-05-27] MEDS ORDERED: HOLD METFORMIN - RECEIVED CONTRAST 20 ML VIAL IV SCH (19:30)
[2021-05-27] MEDS ORDERED: NS 100 ML (IVPB) BAG IV ONE (19:30)
[2021-05-27] MEDS ORDERED: IOHEXOL 350 MG/ML 100 ML (OMNIPAQUE 350) VIAL IV ONE (19:30)
--- NOTE | 2021-05-27 19:53 | ED Respiratory ---
General Chief Complaint: Respiratory Problems Stated Complaint: POSSIBLE TB Nursing Triage Note: HAD BEEN SEEN IN [place] ED AND NURSE TOLD HIM HE MAY HAVE TB. PATIENT STATES HE WAS DIAGNOSED WITH PNEUMONIA AND IS TAKING TWO ANTIBIOTICS CURRENTLY. Source: patient, old records Exam Limitations: no limitations (RIGOBERTO BOYER MD) History of Present Illness Date Seen by Provider: May 27, 2021 Time Seen by Provider: 17:22 Initial Comments Patient was seen at [facility] in [place] on May 23 for pneumonia while he was in [place] visiting his daughter. He was prescribed doxycycline and Omnicef. He has been improving. His initial symptoms included cough and sputum production. At some point during that encounter a provider suggested that he may have tuberculosis. He is not exactly sure what triggered that suspicion. He was referred to the emergency room here for further evaluation. He appears aseptic at this time and is not in any respiratory distress. He has a known right upper lung cancer for which he has been treated at [facility] and will be [facility] Dr. August. (RIGOBERTO BOYER MD) Allergies and Home Medications Allergies Coded Allergies: ofloxacin (Verified Allergy, Mild, 07/17/19) acetaminophen (Verified Allergy, Unknown, Hives, 03/13/20) gabapentin (Verified Allergy, Unknown, DELUSIONS, 05/13/21) Penicillins (Verified Adverse Reaction, Unknown, Pt has received Ceftriaxone in the past, 07/17/19) aspirin (Verified Adverse Reaction, Unknown, 07/17/19) latex (Verified Adverse Reaction, Unknown, 07/17/19) Uncoded Allergies: TAPE (Allergy, Mild, 07/17/09) Patient Home Medication List Home Medication List Reviewed: Yes (RIGOBERTO BOYER MD) Fenofibrate Nanocrystallized (Fenofibrate) 145 Mg Tablet, 145 MG PO DAILY Prescribed by: CONNIE JARVIS on 12/18/20 1004 Hydrocodone/Acetaminophen (Hydrocodone-Acetamin 5-325 mg) 1 Each Tablet, 1 TAB PO Q6H PRN for PAIN-MODERATE (5-7) Prescribed by: RIGOBERTO WARE on 04/25/21 1701 Oxycodone HCl/Acetaminophen (Oxycodone-Acetaminophen 5-325) 1 Each Tablet, 1 EACH PO Q4H PRN for PAIN-SEVERE (8-10) Prescribed by: SERGE LIGHT on 02/10/21 1201 Review of Systems Review of Systems Constitutional: no symptoms reported EENTM: no symptoms reported Respiratory: see HPI Cardiovascular: no symptoms reported Gastrointestinal: no symptoms reported Genitourinary: no symptoms reported Musculoskeletal: no symptoms reported Skin: no symptoms reported Psychiatric/Neurological: No Symptoms Reported Hematologic/Lymphatic: No Symptoms Reported (RIGOBERTO BOYER MD) Past Hocpnwa-Cfbhqy-Dgrrbl Hx Patient Social History Tobacco Use?: Yes (RIGOBERTO BOYER MD) Immunizations Up To Date Tetanus Booster (TDap): Less than 5yrs PED Vaccines UTD: Yes (RIGOBERTO BOYER MD) Seasonal Allergies Seasonal Allergies: No (RIGOBERTO BOYER MD) Past Medical History Surgeries: Yes (hernia repair, left testicle injury, brain surgery, cardiac stent) Cardiac, Coronary Stent, Orthopedic, Thyroidectomy Respiratory: Yes COPD Currently Using CPAP: No Currently Using BIPAP: No Cardiac: Yes (STENT) Coronary Artery Disease, Heart Attack Neurological: Yes Seizure Disorder Reproductive Disorders: No Sexually Transmitted Disease: No HIV/AIDS: No Genitourinary: Yes Kidney Stones Gastrointestinal: No Musculoskeletal: No Endocrine: No HEENT: Yes Loss of Vision: Bilateral Cancer: Yes Lung, Pancreatic Psychosocial: Yes ("anger issues") Integumentary: No Blood Disorders: No Adverse Reaction/Blood Tranf: No (N/A) (RIGOBERTO BOYER MD) Family Medical History Stroke (RIGOBERTO BOYER MD) Physical Exam Vital Signs - First Documented 05/27/21 17:05 Pulse 101 Resp 18 B/P (MAP) 110/80 (90) Pulse Ox 96 O2 Delivery Room Air (BROCK SOLER MD) Capillary Refill : Less Than 3 Seconds (RIGOBERTO BOYER MD) Height: 6'4.00" Weight: 225lbs. 0.0oz. 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, no motor/sensory deficits, alert, normal mood/affect, oriented x 3 Skin: normal color, warm/dry (RIGOBERTO BOYER MD) Progress/Results/Core Measures Suspected Sepsis SIRS Temperature: Pulse: 101 Respiratory Rate: 18 Laboratory Tests 05/27/21 17:20: White Blood Count 16.2H Blood Pressure 110 /80 Mean: 90 Laboratory Tests 05/27/21 17:20: Creatinine 0.83, Platelet Count 494H (RIGOBERTO BOYER MD) Results/Orders Lab Results Laboratory Tests Test 05/27/21 17:20 05/27/21 19:15 Range/Units White Blood Count 16.2 H 4.3-11.0 10^3/uL Red Blood Count 4.46 4.30-5.52 10^6/uL Hemoglobin 13.7 13.3-17.7 g/dL Hematocrit 40 40-54 % Mean Corpuscular Volume 89 80-99 fL Mean Corpuscular Hemoglobin 31 25-34 pg Mean Corpuscular Hemoglobin Concent 35 32-36 g/dL Red Cell Distribution Width 12.5 10.0-14.5 % Platelet Count 494 H 130-400 10^3/uL Mean Platelet Volume 8.8 L 9.0-12.2 fL Immature Granulocyte % (Auto) 1 % Neutrophils (%) (Auto) 84 H 42-75 % Lymphocytes (%) (Auto) 9 L 12-44 % Monocytes (%) (Auto) 6 0-12 % Eosinophils (%) (Auto) 0 0-10 % Basophils (%) (Auto) 0 0-10 % Neutrophils # (Auto) 13.5 H 1.8-7.8 10^3/uL Lymphocytes # (Auto) 1.5 1.0-4.0 10^3/uL Monocytes # (Auto) 0.9 0.0-1.0 10^3/uL Eosinophils # (Auto) 0.1 0.0-0.3 10^3/uL Basophils # (Auto) 0.0 0.0-0.1 10^3/uL Immature Granulocyte # (Auto) 0.2 H 0.0-0.1 10^3/uL Neutrophils % (Manual) 78 % Lymphocytes % (Manual) 13 % Monocytes % (Manual) 6 % Metamyelocytes % 1 % Atypical Lymphocytes 1 % Blast Cells 1 % Polychromasia SLIGHT Microcytosis MODERATE Sodium Level 134 L 135-145 MMOL/L Potassium Level 3.7 3.6-5.0 MMOL/L Chloride Level 96 L 98-107 MMOL/L Carbon Dioxide Level 25 21-32 MMOL/L Anion Gap 13 5-14 MMOL/L Blood Urea Nitrogen 8 7-18 MG/DL Creatinine 0.83 0.60-1.30 MG/DL Estimat Glomerular Filtration Rate 97 BUN/Creatinine Ratio 10 Glucose Level 113 H 70-105 MG/DL Calcium Level 9.6 8.5-10.1 MG/DL C-Reactive Protein High Sensitivity 25.53 H 0.00-0.50 MG/DL (BROCK SOLER MD) Vital Signs/I&O 05/27/21 05/27/21 05/27/21 17:05 17:05 21:10 Pulse 101 91 Resp 18 18 B/P (MAP) 110/80 (90) 116/76 Pulse Ox 96 96 O2 Delivery Room Air Room Air Room Air (BROCK SOLER MD) Vital Signs/I&O Capillary Refill : Less Than 3 Seconds (RIGOBERTO BOYER MD) Blood Pressure Mean: 90 Progress Note : Time: 19:47 Progress Note Patient was seen and examined. Exam was unremarkable. Chest x-ray showed a large rounded right upper lobe opacity increased from prior. This could be a postobstructive pneumonia. At some point a provider at [facility] in [place] felt findings could represent tuberculosis. Further work- up was recommended. I discussed the situation with the [facility] value stream coach. She recommended a CT scan with contrast and a quantity on gold test. Both are being performed at this time. Patient is then to follow-up in the pulmonology clinic June 03 at 0800. No additional treatments are recommended at this time. 05/28/21 -CT scan was reviewed with Dr. Whitt who was value stream coach on consult today. He did not advise any other therapies based on the CT scan. This will be reviewed with the patient in clinic. The chart from [place] was reviewed and submitted for scanning into the medical record. (RIGOBERTO BOYER MD) Diagnostic Imaging Diagonstic Imaging: Xray, CT Plain Films/CT/US/NM/MRI: chest Comments Chest x-ray reviewed by me and report reviewed. See report below: NAME: ALEA COYNE JR [facility] REC#: [id number] PT STATUS: REG ER : 1970 PHYSICIAN: RIGOBERTO BOYER MD ADMIT DATE: 05/27/21/ER Draft Date of Exam:05/27/21 CHEST 1 VIEW, AP/PA ONLY EXAMINATION: Portable erect AP chest at 6:23 PM INDICATION: Lung cancer, pneumonia The heart size is within normal limits and stable when compared to 04/25/2021. The previous exam did note a 2 x 3 cm rounded lesion lying just lateral to the right hilum. On this study, there is now a sizable 9.5 x 12.3 cm area of increased density extending from the right hilum to the periphery of the right midlung and right upper lobe. This may well be secondary to postobstructive pneumonia/atelectasis. The lungs are otherwise clear. The mediastinum is not widened. The osseous structures are intact. Metallic nipple rings are again noted. IMPRESSION: The appearance of the chest has worsened since the prior study as a sizable area of increased density has developed in the right upper lobe and right midlung. This may be secondary to postobstructive pneumonia/atelectasis. If further study is desired, then CT of the chest would be recommended. Dictated on workstation # [id number] Dict: 05/27/21 1836 Trans: 05/27/21 1840 [facility] [id number] Interpreted by: EFREN VASQUEZ MD (RIGOBERTO BOYER MD) Diagonstic Imaging: CT Comments [facility] [place] NAME: ALEA COYNE JR [facility] REC#: [id number] PT STATUS: REG ER : 1970 PHYSICIAN: RIGOBERTO BOYER MD ADMIT DATE: 05/27/21/ER Draft Date of Exam:05/27/21 CT CHEST W EXAMINATION: CT chest with intravenous contrast. TECHNIQUE: Multiple contiguous axial images were obtained through the chest after the uneventful administration of intravenous contrast. All CT scans use one or more of the following dose optimizing techniques: automated exposure control, MA and/or KvP adjustment based on patient size and exam type or iterative reconstruction. HISTORY: Right upper lobe pneumonia COMPARISON: 05/13/2021 FINDINGS: Thyroid: The thyroid is normal. Mediastinum: Heart size is normal without significant pericardial effusion. The aorta is normal in caliber. There are multiple enlarged mediastinal lymph nodes. The largest pretracheal lymph node measures 1.9 x 1.4 cm (series 2 image 59). There are multiple prominent perihilar lymph nodes. Lungs and airways: There is right upper lobe consolidation. Within the consolidation is what appears to be a loculated air-fluid collection measuring up to 7.8 x 6.0 cm. There are patchy groundglass opacities seen throughout the right upper lobe surrounding the masslike consolidation. The left lung is clear. There are a few right lower lobe pulmonary nodules measuring up to 0.4 cm. There is no pneumothorax or significant pleural effusion. The airways are normal. Upper abdomen: The gallbladder is surgically absent. Musculoskeletal: No suspicious osseous lesion or compression fracture. IMPRESSION: 1. Right upper lobe masslike consolidation with surrounding groundglass opacities. Within the consolidation, there is a loculated air and fluid collection concerning for pulmonary abscess or central necrosis. 2. Likely reactive mediastinal and perihilar lymphadenopathy. Dictated on workstation # [id number] Dict: 05/27/212002 Trans: 05/27/212031 [facility] [id number] Interpreted by: DINA MONTANA DO Electronically signed by: (BROCK SOLER MD) Departure Impression Primary Impression: Right upper lobe pneumonia Qualified Codes: J18.9 - Pneumonia, unspecified organism Additional Impression: At risk for tuberculosis Disposition: 01 HOME, SELF-CARE Condition: Stable Departure-Patient Inst. Decision time for Depature: 19:47 (RIGOBERTO BOYER MD) Referrals: DARREN CARNEY MD (PCP/Family) Primary Care Physician Patient Instructions: Pneumonia, Adult (DC), Tuberculosis Add. Discharge Instructions: Follow-up with the pulmonology clinic on June 03 at 08:00. Please call the clinic to confirm that appointment time. You had a blood test drawn called a QuantiFERON gold to test for tuberculosis. Until the results of this test is known to please remain in isolation at home as much as possible. If you must to leave the home you need to wear your N95 mask with a snug fit at all times. If your quantified on gold test result is not known prior to your cancer center appointment, please call them ahead of time and ask if your appointment should be rescheduled. Continue taking your antibiotics as previously prescribed. Call with questions or concerns. Return to the ER if you have worsening symptoms. All discharge instructions reviewed with patient and/or family. Voiced understanding. Copy Copies To 1: VAIBHAV AUGUST JOSHUA T MD May 27, 2021 19:53 BROCK SOLER MD May 27, 2021 20:41
--- NOTE | 2021-05-27 20:33 | Diagnostic Imaging Report ---
EXAMINATION: CT chest with intravenous contrast. TECHNIQUE: Multiple contiguous axial images were obtained through the chest after the uneventful administration of intravenous contrast. All CT scans use one or more of the following dose optimizing techniques: automated exposure control, MA and/or KvP adjustment based on patient size and exam type or iterative reconstruction. HISTORY: Right upper lobe pneumonia COMPARISON: 05/13/2021 FINDINGS: Thyroid: The thyroid is normal. Mediastinum: Heart size is normal without significant pericardial effusion. The aorta is normal in caliber. There are multiple enlarged mediastinal lymph nodes. The largest pretracheal lymph node measures 1.9 x 1.4 cm (series 2 image 59). There are multiple prominent perihilar lymph nodes. Lungs and airways: There is right upper lobe consolidation. Within the consolidation is what appears to be a loculated air-fluid collection measuring up to 7.8 x 6.0 cm. There are patchy groundglass opacities seen throughout the right upper lobe surrounding the masslike consolidation. The left lung is clear. There are a few right lower lobe pulmonary nodules measuring up to 0.4 cm. There is no pneumothorax or significant pleural effusion. The airways are normal. Upper abdomen: The gallbladder is surgically absent. Musculoskeletal: No suspicious osseous lesion or compression fracture. IMPRESSION: 1. Right upper lobe masslike consolidation with surrounding groundglass opacities. Within the consolidation, there is a loculated air and fluid collection concerning for pulmonary abscess or central necrosis. 2. Likely reactive mediastinal and perihilar lymphadenopathy. Dictated by: Dictated on workstation # [id number]
[2021-05-27 21:10] VITALS: BP 116/76
== END 2021-05-27 21:10 | disposition home or self-care (01) ==
LOC: EDUNIT# 16:22 → ER 16:24
DX: C34.11 Malignant neoplasm of upper lobe, right bronchus or lung (principal); J18.1 Lobar pneumonia, unspecified organism; J44.9 Chronic obstructive pulmonary disease, unspecified; I25.2 Old myocardial infarction; Z20.1 Contact with and (suspected) exposure to tuberculosis
CPT/HCPCS: 36415; 71045; 71260; 80048; 85007; 85027; 86141; 86480

== ENCOUNTER 2021-05-31 02:24 | Emergency (ER) | payer MEDICAID ==
[~2021-05-31] VITALS: Ht 195.5 cm; Wt 99.7 kg
--- OUTSIDE RECORDS SUMMARY | 2021-05-31 02:30 | XMS REPORT | Encounter Summary ---
Author Author [facility] Organization [facility] Address Unknown Phone Unavailable Care Team Providers Care Title Assistant Name Role Phone No Pcp, Na PCP Unavailable Encounter Details Care Team Description Date Type Department Jass Vasquez MD [address] Ortho/Med [facility] [address] [place] [address] 05/06/2021 Hospital Laboratory: Main [facility] mpus, Encounter Medical Pavilion [address] [place] [address] Social History Date Tobacco Use Types Packs/Day [...] Address City/State/ZIP Code P hope Number [facility] [address] [place] [address] * BASIC METABOLIC PANEL (05/06/2021 5:29 PM CDT) Sodium 141 137 - 147 MMOL/L [facility] Potassium 5.1 3.5 - 5.1 MMOL/L [facility] Chloride 105 98 - 110 MMOL/L [facility] CO2 28 21 - 30 MMOL/L [facility] Anion Gap 8 3 - 12 [facility] Glucose 91 70 - 100 MG/DL [facility] Blood Urea 12 7 - 25 MG/DL [facility] Nitrogen Creatinine 1.23 0.4 - 1.24 MG/DL [facility] Calcium 9.9 8.5 - 10.6 MG/DL MAIN LAB eGFR Non >60 >60 mL/min [facility] Comment: [place] The eGFR is not validated f or use in drug dosing adjustments. Continue to use estimated creatinine clearance per dosing reference text. Please contact the Clinical Pharmacist for questions. eGFR >60 >60 mL/min [facility] [place] Comment: The eGFR is not validated for use in drug dosing adjustments. Continue to use estimated creatinine clearance per dosing reference text. Please contact the Clinical Pharmacist for questions. Specimen Blood Performing Organization Address City/[facility] P hope Number [facility] [address] [place] [address] * COVID-19 (SARS-COV-2) PCR (05/06/2021 5:13 PM CDT) Pathologist [facility] COVID-19 FLOCKED SWAB [facility] (SARS-CoV-2) NASOPHARYNGEAL PCR Source COVID-19 NOT DETECTED DN-NOT DETECTED [facility] (SARS-CoV-2) Comment: PCR This assay is [...] Performance characteristics have been verified by the [facility]. Fact sheet for providers: https://www.fda.gov/media/5133 78/download Fact sheet for patients: https://www.fda.gov/media/2886 81/download Specimen Flocked Swab - Nasopharyngeal Performing Organization Address City/State/ZIP Code P hope Number [facility] [address] [place] [address] documented in this encounter Visit Diagnoses Diagnosis [...]
--- OUTSIDE RECORDS SUMMARY | 2021-05-31 02:30 | XMS REPORT | Encounter Summary ---
Author Author [facility] Organization [facility] Address Unknown Phone Unavailable Care Team Providers Care Milieu Counselor Name Role Phone No Pcp, Na PCP Unavailable Reason for Visit * Reason Comments Abnormal Lung Imaging * Consult, Test & Treat (Routine) Referred By Contact Referred To Contact Status Reason Specialty Diagnoses / Procedures Rebecca Rea, CENTRAL SUPPLY ASSISTANT [address] [place] [address] New Request Pulmonology Diagnoses Abnormal findings on diagnostic imaging of lung Encounter Details Care Team Description Date Type Department Dimas Trujillo MD [address] Ortho[facility] Lvl [address] [place] [address] [id number] Jass Vasquez MD [address] [facility] Lvl [address] [place] [address] [phone] Mass of upper lobe of right lung (Primar y Dx); Tobacco abuse; Chronic obstructive pulmonary disease, unspecified COPD type (HCC) 05/06/2021 Office Visit Pulmonology: Palmer R[facility], [facility] [address], [address] [address] Social History Date Tobacco Use [...] 11:15am. This will be at the Main [place] at [address] [place] [address]. - Nothing to eat or drink after [...] in at admitting, just inside the main [facility] entrance , located at [address] [place] [address], two and a half (2 1/2 ) hours before your procedure time. There is a parking garage (P3) located acros s from the entrance. - you will need a package delivery driver to and from the procedure. [...] business hours, weekends, or holidays: Call [phone] and request for the Sign Hanger to be paged. - To cancel, change, or schedule a clinic appointment: Call our Pulmonary [facility] [facility] at Pulmonary Clinic Nurse Coordinator-Tenisha Burleson RN - Office: [phone] fa x: [phone] documented in this encounter Progress Notes * [...] mass. Patient was referred from Pulmonary in [place], [place] for a PET avid RUL mas [...] 11:15am. This will be at the Main [place] at [address] [place] [address]. - Nothing to eat or drink after [...] the main hospital entrance , located at [address] [place] [address], two and a half (2 1/2 ) hours before your procedure time. There is a parking garage (P3) located acros s from the entrance. - you will need a package delivery driver to and from the procedure. [...] or holidays: Call and request for the Sign Hanger to be paged. - To cancel, change, or schedule a clinic appointment: Call our Pulmonary [facility] at Pulmonary Clinic Nurse Coordinator-Tenisha Burleson RN - Office: [phone] fa x: [phone] documented in this encounter Miscellaneous Notes * [...]
--- OUTSIDE RECORDS SUMMARY | 2021-05-31 02:30 | XMS REPORT | Encounter Summary ---
Author Author [facility] Organization [facility] Address Unknown Phone Unavailable Care Team Providers Care Side Splitter Name Role Phone No Pcp, Na PCP Unavailable Reason for Visit * Auth/Cert Referred By Contact Referred To Contact Status Reason Specialty Diagnoses / Procedures Diagnoses Mass of upper lobe of right lung Mass of upper lobe of right lung [R91.8] P rocedures [place] BRNCHSC INCL FLUOR GDNCE DX W/CELL WASHG SPX [place] BRONCHOSCOPY W/CPTR-ASST IMAGE-GUIDED NAVIGATION [place] BRNCHSC W/BRNCL ALVEOLAR LAVAGE [place] BRNCHSC EBUS GUIDED SAMPL 3/> NODE STATION/STRUX [place] BRONCHOSCOPY W/TRANSBRONCHIAL LUNG BX 1 LOBE [place] BRONCHOSCOPY NEEDLE BX TRACHEA MAIN STEM&/BRON BRONCHOSCOPY [...] Date Type Department Jass Vasquez MD [address] Ortho/Med Pavilion Lvl 5A [place] [address] Mass of upper lobe of right lung 05/09/2021 Hospital Operating Room: Bailey arnett [facility], [facility] [address] [facility] [place] [facility] [address] 2 [place] [address] Social History Date Tobacco Use [...] performed on 05-06-21. Jass Vasquez MD Pager [phone] * Brea Shankar MD - 05/06/2021 4:00 PM CDT Subjective: History of Present Illness Alea Coyne Jr. is a 51 y.o. male with PMH of HLD, COPD, CAD, reported rec ent diagnosis of CHF, history of seizures (not on AEDs), ?history of pancreatic cancer in 2013, and current tobacco abuse referred for a PET avid RUL mass. Patient was referred from Pulmonary in [place], [place] for a PET avid RUL mas [...] visit, discussed case with Dr Valerie Shankar, [facility] fellow and concur with our [...] 11:15am. This will be at the Main [place] at [address] [place] [address]. - Nothing to eat or drink after [...] in at admitting, just inside the main [facility] entrance , located at [address] [place] [address], two and a half (2 1/2 ) hours before your procedure time. There is a parking garage (P3) located acros s from the entrance. - you will need a bus driver to and from the procedure. Only [...] or holidays: Call and request for the Employee Relations Specialist to be paged. - To cancel, change, or schedule a clinic appointment: Call our Pulmonary [facility] [facility] at Pulmonary Clinic Nurse Coordinator-Tenisha Burleson RN - Office: [phone] fa x: [phone] documented in this encounter Plan of Treatment [...] SPECIMENS (05/09/2021 1:30 PM CDT) PATHOLOGY [facility] [email or web address] Department of Pathology and Laboratory Medicine [address] [place] [address] Surgical Pathology Office: [phone] SURGICAL PATHOLOGY REPORT NAME: ALEA COYNE SURG PATH #: [id number] MR #: [id number] SPECIMEN CLASS: SR BILLING #: [id number] ALT ID #: LOCATION: [facility] DATE OF [...] Cell types evaluated: Tumor cells FDA status: Supervisor Plasma ############################## ############################## ############ Final Diagnosis: A. "RUL mass", biopsy: Squamous cell carcinoma, keratinizing. See comment. Comment: Immunohistochemical stains show the tumor cells are positive for p40, and negative for DASIA-3 and TTF-1 supporting the above diagnosis. Additional stain for PD-L1 will be performed and reported in an addendum. Pursuant to the Classified Advertising Supervisor Program at the [facility] Pathology Department, selected slides from this [...] of Pathology and Laboratory Medicine of the [facility] ([employer]) in compliance with CLIA'88 regulations. [...] of Pathology and Laboratory Medicine of the [facility]. It has not been cleared or approved by the FDA. The FDA has determined that such clearance or approval is not necessary. Specimen Other (Specify) Performing Organization Address City/State/ZIP Code P hope Number [facility] [address] [place] [address] * CYTOLOGY FNA LYMPH NODE (05/09/2021 1:15 PM CDT) Cytology [facility] [email or web address] Department of Pathology and Laboratory Medicine [address] [place] [address] Surgical Pathology Office: [phone] CYTOLOGY REPORT NAME: ALEA COYNE SURG PATH #: [id number] MR #: [id number] ALT ID #: BILLING #: [id number] LOCATION: [facility] DATE OF PROCEDURE: 05/09/2021 AGE: [...] determination of adequacy was performed by the director telehealth, JESSICA, on Diff-Quik stained slide(s). Passes one [...] Code P hope Number MAIN LAB [address] [place] [address] * CT CHEST WO CONTRAST (05/09/2021 12:30 [...] Report Procedure Date: 05/09/2021 RESULTS 11:57 AM [facility]: [id number] Date of : 1970 Gender: Male Attending Physician: Jass Vasquez MD Procedure: Bronchoscopy Indications: Right upper lobe mass Providers: Jass Vasquez MD (Doctor), Brea Shankar MD (Fellow), Akbar Valderrama RN (Nurse), Bryan Munroe (Fiber Locking Supervisor) Referring Physician: Rebecca Rea Medications: General Anesthesia [...] aspiration was also performed using an Olympus [employer] GamesiShot 21 gauge needle in the right superior [...]
--- OUTSIDE RECORDS SUMMARY | 2021-05-31 02:30 | XMS REPORT | Encounter Summary ---
Author Author [facility] Organization [facility] Address Unknown Phone Unavailable Care Team Providers Care Cable Splicer Apprentice Name Role Phone No Pcp, Na PCP Unavailable Reason for Visit * Auth/Cert Referred By Contact Referred To Contact Status Reason Specialty Diagnoses / Procedures Diagnoses Mass of upper lobe of right lung Mass of upper lobe of right lung [R91.8] P rocedures [place] BRNCHSC INCL FLUOR GDNCE DX W/CELL WASHG SPX [place] BRONCHOSCOPY W/CPTR-ASST IMAGE-GUIDED NAVIGATION [place] BRNCHSC W/BRNCL ALVEOLAR LAVAGE [place] BRNCHSC EBUS GUIDED SAMPL 3/> NODE STATION/STRUX [place] BRONCHOSCOPY W/TRANSBRONCHIAL LUNG BX 1 LOBE [place] BRONCHOSCOPY NEEDLE BX TRACHEA MAIN STEM&/BRON BRONCHOSCOPY [...] Date Type Department Ynes Norris MD [address] [id number] [place] [address] [phone] 05/09/2021 Anesthesia Operating Room: [facility] [address] [facility] Level 2 [place] [address] Anesthesia Record Responsible Anesthesiologist Anesthesia [...] mass. Patient was referred from Pulmonary in [place], [place] for a PET avid RUL mas [...] Blood Consent: consented Plan discussed with: anesthesiologist, AUTOMOTIVE GENERATOR REPAIRER and surgeon/proceduralist. documented in this encounter Plan [...]
--- OUTSIDE RECORDS SUMMARY | 2021-05-31 02:30 | XMS REPORT | Encounter Summary ---
Author Author [facility] Organization [facility] Address Unknown Phone Unavailable Care Team Providers Care Vaccine Customer Representative Name Role Phone No Pcp, Na PCP Unavailable Encounter Details Care Team Description Date Type Department Jass Vasquez MD [address] Ortho/Med Pavilion Lvl [address] [place] [address] Mass of upper lobe of right lung (Primar y Dx); Encounter for screening laboratory testing for COVID-19 virus in asymptomatic patient 05/06/2021 Prep for Case Pulmonology: Main [facility], Medical Pav[facility] [address], [address] [address] Social History Date Tobacco Use [...] >60 >60 mL/min [facility] Comment: [place] The eGFR is not validated f or use in drug dosing adjustments. Continue to use estimated creatinine clearance per dosing reference text. Please contact the Clinical Pharmacist for questions. eGFR >60 >60 mL/min [facility] [place] Comment: The eGFR is not validated for use in drug dosing adjustments. Continue to use estimated creatinine clearance per dosing reference text. Please contact the Clinical Pharmacist for questions. Specimen Blood Performing Organization Address City/State/ZIP Code P hope Number [facility] [address] [place] [address] * CBC (05/06/2021 5:29 PM CDT) Pathologist [facility] White Blood 8.3 4.5 - 11.0 [...] P hope Number [facility] [address] [place] [address] * COVID-19 (SARS-COV-2) PCR (05/06/2021 5:13 PM CDT) COVID-19 FLOCKED SWAB MAIN LAB (SARS-CoV-2) NASOPHARYNGEAL PCR Source COVID-19 NOT DETECTED DN-NOT DETECTED [facility] LAB (SARS-CoV-2) Comment: PCR This assay [...] Performance characteristics have been verified by the [facility]. Fact sheet for providers: https://www.fda.gov/media/1370 78/download Fact sheet for patients: https://www.fda.gov/media/4121 81/download Specimen Flocked Swab - Nasopharyngeal Performing Organization Address City/State/ZIP Code P hope Number MAIN LAB [address] [place] [address] documented in this encounter Visit Diagnoses Diagnosis [...]
--- OUTSIDE RECORDS SUMMARY | 2021-05-31 02:30 | XMS REPORT | Encounter Summary ---
Author Author [facility] Organization [facility] Address Unknown Phone Unavailable Care Team Providers Care Label Printing Machinist Name Role Phone No Pcp, Na PCP Unavailable Encounter Details Care Team Description Date Type Department 05/13/2021 Hospital Imaging: [facility] Encounter [facility] [address], [address] [place] [address] Social History Date Tobacco Use [...]
--- OUTSIDE RECORDS SUMMARY | 2021-05-31 02:30 | XMS REPORT | Encounter Summary ---
Author Author [facility] Organization [facility] Address Unknown Phone Unavailable Care Team Providers Care Blueprinter Name Role Phone No Pcp, Na PCP Unavailable Reason for Visit * Auth/Cert Referred By Contact Referred To Contact Status Reason Specialty Diagnoses / Procedures Diagnoses Mass of upper lobe of right lung Mass of upper lobe of right lung [R91.8] P rocedures [place] BRNCHSC INCL FLUOR GDNCE DX W/CELL WASHG SPX ID BRONCHOSCOPY W/CPTR-ASST IMAGE-GUIDED NAVIGATION ID BRNCHSC W/BRNCL ALVEOLAR LAVAGE ID BRNCHSC EBUS GUIDED SAMPL 3/> NODE STATION/STRUX ID BRONCHOSCOPY W/TRANSBRONCHIAL LUNG BX 1 LOBE ID BRONCHOSCOPY NEEDLE BX TRACHEA MAIN STEM&/BRON BRONCHOSCOPY [...] Date Type Department Jass Vasquez MD [address] Ortho/Med Pavilion Lvl [address] [place] [address] BRONCHOSCOPY DIAGNOSTIC WITH/ WITHOUT CE LL WASHING - FLEXIBLE 05/09/2021 Surgery Operating Room: [facility], [address] [place] [address] Surgery Details Trauma Case? Date/Time [...] performed on 05-06-21. Jass Vasquez MD Pager [phone] * Brea Shankar MD - 05/06/2021 4:00 PM CDT Subjective: History of Present Illness Alea Coyne Jr. is a 51 y.o. male with PMH of HLD, COPD, CAD, reported rec ent diagnosis of CHF, history of seizures (not on AEDs), ?history of pancreatic cancer in 2013, and current tobacco abuse referred for a PET avid RUL mass. Patient was referred from Pulmonary in [place], [place] for a PET avid RUL mas [...] visit, discussed case with Dr Valerie Shankar, [facility] fellow and concur with our fellow's documentation of history, physi luis exam, assessment, and treatment plan unless otherwise noted. Total time spe nt reviewing referring documents, radiographs, face to face time with patient, dalila rtistaneloping plan and answering questions 72 minutes. DOS [...] of 11:15am. This will be at the [facility] at [address] [place] [address]. - Nothing to eat or drink after [...] check in at admitting, just inside the [facility] entrance , located at [address] [place] [address], two and a half (2 1/2 ) hours before your procedure time. There is a parking garage (P3) located acros s from the entrance. - you will need a deliver driver to and from the procedure. Only [...] after business hours, weekends, or holidays: Call [phone] and request for the [employer] Administrator to be paged. - To cancel, change, or schedule a clinic appointment: Call our Pulmonary [facility] l[facility] at Pulmonary Clinic Nurse Coordinator-Tenisha Burleson RN - Office: [phone] fa x: [phone] documented in this encounter Plan of Treatment [...] SPECIMENS (05/09/2021 1:30 PM CDT) PATHOLOGY [facility] [employer] [facility] [email or web address] Department of Pathology and Laboratory Medicine [address] [place] [address] Surgical Pathology Office: [phone] SURGICAL PATHOLOGY REPORT NAME: ALEA COYNE SURG PATH #: [id number] MR #: [id number] SPECIMEN CLASS: SR BILLING #: [id number] ALT ID #: LOCATION: [facility] DATE OF [...] Cell types evaluated: Tumor cells FDA status: Sales Correspondence Clerk ############################## ############################## ############ Final Diagnosis: A. "RUL mass", biopsy: Squamous cell carcinoma, keratinizing. See comment. Comment: Immunohistochemical stains show the tumor cells are positive for p40, and negative for DASIA-3 and TTF-1 supporting the above diagnosis. Additional stain for PD-L1 will be performed and reported in an addendum. Pursuant to the Mobile Architect Program at the [facility] Pathology Department, selected slides from this [...] of Pathology and Laboratory Medicine of the [facility] ([employer]) in compliance with CLIA'88 [...] of Pathology and Laboratory Medicine of the [facility]. It has not been cleared or approved by the FDA. The FDA has determined that such clearance or approval is not necessary. Specimen Other (Specify) Performing Organization Address City/State/ZIP Code P hope Number [facility] [address] [place] [address] * CYTOLOGY FNA LYMPH NODE (05/09/2021 1:15 PM CDT) Cytology [facility] [email or web address] Department of Pathology and Laboratory Medicine [address] [place] [address] Surgical Pathology Office: [phone] CYTOLOGY REPORT NAME: ALEA COYNE SURG PATH #: [id number] MR #: [id number] ALT ID #: BILLING #: [id number] LOCATION: [facility] DATE OF PROCEDURE: 05/09/2021 AGE: [...] determination of adequacy was performed by the lookback coordinator, JESSICA, on Diff-Quik stained slide(s). Passes one [...] Number [facility] [address] [place] [address] * CT CHEST WO CONTRAST (05/09/2021 12:30 [...] Procedure Date: 05/09/2021 RESULTS 11:57 AM CSN: [id number] Date of : 1970 Gender: Male Attending Physician: Jass Vasquez MD Procedure: Bronchoscopy Indications: Right upper lobe mass Providers: Jass Vasquez MD (Doctor), Brea Shankar MD (Fellow), Akbar Valderrama RN (Nurse), Bryan Munroe (Supervisor Metal Placing) Referring Physician: Rebecca Rea Medications: General Anesthesia [...] aspiration was also performed using an [employer]us [employer]ot 21 gauge needle in the right superior [...]
--- OUTSIDE RECORDS SUMMARY | 2021-05-31 02:30 | XMS REPORT | Clinical Summary ---
Author Author [facility] Organization [facility] Address Unknown Phone Unavailable Care Team Providers Care Events Assistant Name Role Phone No Pcp, Na PCP Unavailable Source Comments Some departments are not documenting in the electronic medical record. If you d o not see the information that you expected, contact Release of Information in [facility] MEDIA Information Management department at [phone] for further assistan ce in locating additional records.[facility] Allergies Comments Active Allergy Reactions Severity Noted [...] Jass Vasquez MD Results 05/14/2021 Telephone Pulmonology 05/13/2021 Hospital Radiology Encounter Vinicio Campos MD [...] Dx) 04/21/2021 Orders Only Radiology Margot Mendieta, production maintenance technician 04/17/2021 Telephone Radiology 03/25/2021 Hospital Radiology Encounter from Last 3 Months Surgical History Surgery Date Site/Laterality Comments SHOULDER SURGERY 11/22/2017 Right HX KNEE SURGERY Bilateral HX CHOLECYSTECTOMY 08/30/2015 - 08/29/2016 HERNIA REPAIR TESTICLE SURGERY BRONCHOSCOPY 05/09/2021 Bronchus/N/A BRONCHOSCOPY DI AGNOSTIC WITH/ WITHOUT CELL WASHING - FLEXIBLE performed by Blanca Vasquez MD at [facility] OR BRONCHOSCOPY 05/09/2021 Bronchus/N/A BRONCHOSCOPY WI TH IMAGE - GUIDED NAVIGATION - FLEXIBLE performed by Jass Vasquez MD at [facility] OR BRONCHOSCOPY 05/09/2021 Bronchus/N/A BRONCHOSCOPY WI TH BRONCHIAL ALVEOLAR LAVAGE - FLEXIBLE performed by Jass Vasquez MD at [facility] OR BRONCHOSCOPY 05/09/2021 Bronchus/N/A BRONCHOSCOPY WI TH ENDOBRONCHIAL ULTRASOUND GUIDED TRANSTRACHEAL/ TRANSBRONCHIAL SAMPLING - 3 OR MORE MEDIASTINAL/ HILAR LYMPH NODE STATIONS/ STRUCTURE - FLEXIBLE performed by Blanca Vasquez MD at [facility] OR BRONCHOSCOPY 05/09/2021 Bronchus/N/A BRONCHOSCOPY WI TH TRANSBRONCHIAL LUNG BIOPSY - FLEXIBLE - SINGLE LOBE performed by Jass Martini MD at [facility] OR BRONCHOSCOPY 05/09/2021 Bronchus/N/A BRONCHOSCOPY WI TH TRANSBRONCHIAL NEEDLE ASPIRATION AND BIOPSY TRACHEA/ MAIN STEM/ LOBAR BR ONCHUS - FLEXIBLE performed by Jass Vasquez MD at [facility] OR Medical History Medical History Date [...] SPECIMENS (05/09/2021 1:30 PM CDT) PATHOLOGY [facility] [email or web address] Department of Pathology and Laboratory Medicine [address] [place] [id number] Surgical Pathology Office: [phone] SURGICAL PATHOLOGY REPORT NAME: ALEA COYNE SURG PATH #: [id number] MR #: [id number] SPECIMEN CLASS: SR BILLING #: [id number] ALT ID #: LOCATION: [facility] DATE OF [...] Cell types evaluated: Tumor cells FDA status: Movie Actor ############################## ############################## ############ Final Diagnosis: A. "RUL mass", biopsy: Squamous cell carcinoma, keratinizing. See comment. Comment: Immunohistochemical stains show the tumor cells are positive for p40, and negative for DASIA-3 and TTF-1 supporting the above diagnosis. Additional stain for PD-L1 will be performed and reported in an addendum. Pursuant to the Tool Grinder Operator External Program at the [facility] Pathology Department, selected slides from this [...] of Pathology and Laboratory Medicine of the [facility] ([place] [facility]) in compliance with CLIA'88 regulations. [...] of Pathology and Laboratory Medicine of the [facility]. It has not been cleared or approved by the FDA. The FDA has determined that such clearance or approval is not necessary. Specimen Other (Specify) Performing Organization Address City/State/ZIP Code P hope Number [facility] [address] [place] [address] * CYTOLOGY FNA LYMPH NODE (05/09/2021 1:15 PM CDT) Cytology [facility] [email or web address] Department of Pathology and Laboratory Medicine [address] [place] [address] Surgical Pathology Office: [phone] CYTOLOGY REPORT NAME: ALEA COYNE SURG PATH #: [id number] MR #: [id number] ALT ID #: BILLING #: [id number] LOCATION: [facility] DATE OF PROCEDURE: 05/09/2021 AGE: [...] determination of adequacy was performed by the oyster preparer, JESSICA, on Diff-Quik stained slide(s). Passes one [...] Code P hope Number MAIN LAB [address] [place] [address] * CT CHEST WO CONTRAST (05/09/2021 12:30 [...] Procedure Date: 05/09/2021 RESULTS 11:57 AM CSN: [id number] Date of : 1970 Gender: Male Attending Physician: Jass Vasquez MD Procedure: Bronchoscopy Indications: Right upper lobe mass Providers: Jass Vasquez MD (Doctor), Brea Shankar MD (Fellow), Akbar Valderrama RN (Nurse), Bryan Munroe (Brush Filler Hand) Referring Physician: Rebecca Rea Medications: General Anesthesia [...] P hope Number [facility] [address] [place] [id number] * BASIC METABOLIC PANEL (05/06/2021 5:29 PM [...] Non >60 >60 mL/min MAIN LAB Comment: Indonesian The eGFR is not validated f or use in drug dosing adjustments. Continue to use estimated creatinine clearance per dosing reference text. Please contact the Clinical Pharmacist for questions. eGFR >60 >60 mL/min [facility] Indonesian Comment: The eGFR is not validated for use in drug dosing adjustments. Continue to use estimated creatinine clearance per dosing reference text. Please contact the Clinical Pharmacist for questions. Specimen Blood Performing Organization Address City/[facility] P hope Number [facility] [address] [place] [address] * COVID-19 (SARS-COV-2) PCR (05/06/2021 5:13 PM CDT) COVID-19 FLOCKED SWAB [facility] (SARS-CoV-2) NASOPHARYNGEAL PCR Source COVID-19 NOT DETECTED DN-NOT DETECTED [facility] (SARS-CoV-2) Comment: PCR This assay is [...] Performance characteristics have been verified by the [facility]. Fact sheet for providers: https://www.fda.gov/media/5664 78/download Fact sheet for patients: https://www.fda.gov/media/4133 81/download Specimen Flocked Swab - Nasopharyngeal Performing Organization Address City/State/ZIP Code P hope Number [facility] [address] [place] [address] * NM PET/CT EXTERNAL IMAGING (03/25/2021 12:00 AM CDT) Specimen Narrative Performed At This order has been auto finalized and does not contain a result. from Last 3 Months Insurance Type Payer Benefit Subscriber ID Effective Phone Address Plan / Dates Group Medicaid [facility] MEDICAID [facility] [id number] 2017[place] [phone] Advance Directives Patient Technical Administrator Explanation Type Date Recorded Advance 08/02/2018 12:00 PM Directive/DPOA Date Inactivated Comments Code Status Date Activated 08/05/2018 2:59 PM Full Code 08/02/2018 2:31 PM Provider has discussed Code Status No, discussion no t w/Patient or Family? necessary based on Dx
--- OUTSIDE RECORDS SUMMARY | 2021-05-31 02:30 | XMS REPORT | Encounter Summary ---
Author Author [facility] Organization [facility] Address Unknown Phone Unavailable Care Team Providers Care [place] [facility] Manager Name Role Phone No Pcp, Na PCP Unavailable Reason for Referral * Consult, Test & Treat (Urgent) Referred By Contact Referred To Contact Status Reason Specialty Diagnoses / Procedures Jass Vasquez MD [address] [facility] [address] [address] Cc Radiation Therapy [address] [facility] [place] [address] Closed Specialty Services Radiation Diagnoses Required Therapy [...] Diagnoses / Procedures Jass Vasquez MD [address] [facility] [address] [place] [address] Cc - Ww Cl Exm/Proc Rm [address] [place], [place] Authorized Specialty Services Oncology Diagnoses Required [...] Date Type Department Tiffany Shankar MD [address] [place] [address] Results 05/19/2021 Telephone Pulmonology: [facility] [address] [place] [address]. [address], [address] [address] Social History Date Tobacco Use [...] encounter Miscellaneous Notes * Telephone Encounter - Kourtney Chan MA,CCC-PRICE CLERK - 05/28/2021 3:58 PM CDT Cytology and pathology reports faxed to [facility]. Routing to Tenisha Burleson RN T * Telephone Encounter - Tenisha Burleson RN - 05/28/2021 9:29 AM CDT Spoke with Allen with [facility]. She is requesting to have biopsy r esults from patient's 05/09/21 bronchoscopy refaxed to them due to an issue with their fax machine. Will request to have cytology and pathology results faxed to [facility] at [phone]. Tenisha Burleson RN * Telephone Encounter - Tenisha Burleson RN - 05/27/2021 4:20 PM CDT Returned phone call to Allen with [facility] and LVM. Tenisha nelson RN * Telephone Encounter - Kourtney Chan MA,CCC-PRICE CLERK - 05/20/2021 4:25 PM CDT Bronch report and results, office note and telephone encounter faxed to [facility]. Routing to Tenisha Burleson RN T * Telephone Encounter - Tenisha Burleson RN - 05/20/2021 3:43 PM CDT Images from the original note were not included. Spoke with patient and discussed follow up plan. Patient stated he wanted to fo llow with oncology in [place], [place]. He is having difficulty with transportatio and feels he is unable to find reliable transportation to follow up at . He requested to have information sent to Dr Deni Beckman in [place] and to his p ulmonologist. Information already faxed to Rebecca FREEDMAN with [facility] on 05/16. He has an appt with pulmonology on 05/28 and his PCP on 05/29. Will request to have OVN, bronch report and results faxed to Dr Beckman at [phone] ([facility]). Referral to oncology cancelled and MRI head ca ncelled. Dr Shankar updated. Tenisha Burleson, RN * Telephone Encounter - Tiffany Shankar [...] patient again tomorrow. Neha ent lives in [place] and will likely want to have MRI completed closer to [facility]. documented in this encounter Plan of Treatment Order Schedule Name Type Priority Associated Diag noses Ordered: 05/19/2021 AMB REFERRAL TO ONCOLOGY Outpatient Routine Per dickens neoplasm of Referral upper lobe of right lung (HCC) Ordered: 05/19/2021 AMB REFERRAL TO RADIATION Outpatient Routine Maya pulido neoplasm of ONCOLOGY Referral upper lobe of [...]
[2021-05-31] MEDS ORDERED: ONDANSETRON 4 MG/2 ML (SDV) Z0FRAN IVP STA (02:43)
[2021-05-31] MEDS ORDERED: morphine INJ 10 MG/ML 1ML (SYR OR VIAL) IVP STA (02:43)
[2021-05-31] MEDS ORDERED: RT-ALBUTEROL/IPRATROPIUM 3 ML (DUONEB) VIAL INH ONE (02:45)
--- NOTE | 2021-05-31 02:53 | ED Dyspnea ---
General Chief Complaint: Respiratory Problems Stated Complaint: COUGHING UP BLOOD Source of Information: Patient, Old Records History of Present Illness Date Seen by Provider: May 31, 2021 Time Seen by Provider: 02:26 Initial Comments 51 yo male presenting with increased pain to right side of chest where he has known cancer and mass as well as post-obstructive pneumonia. He had been seen May 23 in [place] when he was visiting family and was told he had pneumonia. He was on antibiotics and felt like he was improving but then had problems again on May 27. Then he went to [facility] for his symptoms. He had CT scan and xrays as well as labs done. The CT scan shows increased size of mass and postobstructive pneumonia on right side as well as what appeared to be air fluid levels for possible abscess or cavitary lesion. Pulmonary was consulted and eICU by the ED doc. They recommended continue with antibiotics and to see Pulmonary clinic on Jun.03. Pt saw Dr. August in the cancer center in [place] today and was told the blood and sputum he is coughing up is from infection. He is to start intensive radiation and chemotherapy on Wednesday. Tonight he started coughing harder and had more blood tinged sputum and purulent sputum that he coughed up. Between this and his increased pain to right side his mom brought him to the ED. He states if he tries to lay back he gets more short of breath and can hear the fluid moving in his lungs. Associated Symptoms: Chest Pain, Cough, Fever, Pain, Weakness, Wheezing Allergies and Home Medications Allergies Coded Allergies: ofloxacin (Verified Allergy, Mild, 07/17/19) acetaminophen (Verified Allergy, Unknown, Hives, 03/13/20) gabapentin (Verified Allergy, Unknown, DELUSIONS, 05/13/21) Penicillins (Verified Adverse Reaction, Unknown, Pt has received Ceftriaxone in the past, 07/17/19) aspirin (Verified Adverse Reaction, Unknown, 07/17/19) latex (Verified Adverse Reaction, Unknown, 07/17/19) Uncoded Allergies: TAPE (Allergy, Mild, 07/17/09) Patient Home Medication List Home Medication List Reviewed: Yes Fenofibrate Nanocrystallized (Fenofibrate) 145 Mg Tablet, 145 MG PO DAILY Prescribed by: CONNIE JARVIS on 12/18/20 1004 Hydrocodone/Acetaminophen (Hydrocodone-Acetamin 5-325 mg) 1 Each Tablet, 1 TAB PO Q6H PRN for PAIN-MODERATE (5-7) Prescribed by: RIGOBERTO WARE on 04/25/21 1701 Morphine Sulfate (Morphine Sulfate IR Tablet) 15 Mg Tablet, 15 MG PO Q8H PRN for Lung Cancer pain in Chest Prescribed by: SERGE LIGHT on 05/31/21 0526 Oxycodone HCl/Acetaminophen (Oxycodone-Acetaminophen 5-325) 1 Each Tablet, 1 EACH PO Q4H PRN for PAIN-SEVERE (8-10) Prescribed by: SERGE LIGHT on 02/10/21 1201 Review of Systems Review of Systems Constitutional: No fever; malaise EENTM: no symptoms reported Respiratory: cough, dyspnea on exertion, hemoptysis, phlegm, short of breath; No stridor; wheezing Cardiovascular: chest pain (acute on chronic right sided chest pain) Gastrointestinal: no symptoms reported Genitourinary: no symptoms reported Musculoskeletal: no symptoms reported Skin: no symptoms reported Psychiatric/Neurological: Anxiety Past Wprqmrw-Xjatue-Iebysg Hx Immunizations Up To Date Tetanus Booster (TDap): Less than 5yrs PED Vaccines UTD: Yes First/Initial COVID19 Vaccinat: not vacc Seasonal Allergies Seasonal Allergies: No Past Medical History Surgeries: Yes (hernia repair, left testicle injury, brain surgery, cardiac stent) Cardiac, Coronary Stent, Orthopedic, Thyroidectomy Respiratory: Yes COPD Currently Using CPAP: No Currently Using BIPAP: No Cardiac: Yes (STENT) Coronary Artery Disease, Heart Attack Neurological: Yes Seizure Disorder Reproductive Disorders: No Sexually Transmitted Disease: No HIV/AIDS: No Genitourinary: Yes Kidney Stones Gastrointestinal: No Musculoskeletal: No Endocrine: No HEENT: Yes Loss of Vision: Bilateral Cancer: Yes Lung, Pancreatic Psychosocial: Yes ("anger issues") Integumentary: No Blood Disorders: No Adverse Reaction/Blood Tranf: No (N/A) Family Medical History Stroke Physical Exam Vital Signs Vital Signs - First Documented 05/31/21 02:32 Temp 35.7 Pulse 108 Resp 28 B/P (MAP) 107/64 (78) Pulse Ox 96 O2 Delivery Room Air Capillary Refill : Height, Weight, BMI Height: 6'4.00" Weight: 225lbs. 0.0oz. 102.112499ht; 28.00 BMI Method:Stated General Appearance: Anxious, Chronically ill, Moderate Distress HEENT: Pharynx Normal Respiratory: Accessory Muscle Use, Decreased Breath Sounds, Respiratory Distress, Rhonci; No Stridor; Wheezing Cardiovascular: Regular Rate, Rhythm, Normal Peripheral Pulses Gastrointestinal: Normal Bowel Sounds, No Pulsatile Mass, Non Tender, Soft Rectal: Deferred Extremity: Normal Capillary Refill, No Pedal Edema Neurologic/Psychiatric: Alert, Oriented x3 Skin: Warm/Dry Focused Exam Lactate Level 05/31/21 02:38: Lactic Acid Level 1.28 Lactic Acid Level Laboratory Tests Test 05/31/21 02:38 Lactic Acid Level 1.28 MMOL/L (0.50-2.00) Progress/Results/Core Measures Results/Orders Lab Results Laboratory Tests Test 05/31/21 02:38 Range/Units White Blood Count 13.0 H 4.3-11.0 10^3/uL Red Blood Count 6.17 H 4.30-5.52 10^6/uL Hemoglobin 18.5 #H 13.3-17.7 g/dL Hematocrit 55 H 40-54 % Mean Corpuscular Volume 90 80-99 fL Mean Corpuscular Hemoglobin 30 25-34 pg Mean Corpuscular Hemoglobin Concent 34 32-36 g/dL Red Cell Distribution Width 12.9 10.0-14.5 % Platelet Count 397 130-400 10^3/uL Mean Platelet Volume 9.1 9.0-12.2 fL Immature Granulocyte % (Auto) 1 % Neutrophils (%) (Auto) 82 H 42-75 % Lymphocytes (%) (Auto) 12 12-44 % Monocytes (%) (Auto) 5 0-12 % Eosinophils (%) (Auto) 1 0-10 % Basophils (%) (Auto) 0 0-10 % Neutrophils # (Auto) 10.6 H 1.8-7.8 X 10^3 Lymphocytes # (Auto) 1.5 1.0-4.0 X 10^3 Monocytes # (Auto) 0.6 0.0-1.0 X 10^3 Eosinophils # (Auto) 0.1 0.0-0.3 10^3/uL Basophils # (Auto) 0.1 0.0-0.1 10^3/uL Immature Granulocyte # (Auto) 0.1 0.0-0.1 10^3/uL Sodium Level 138 135-145 MMOL/L Potassium Level 4.0 3.6-5.0 MMOL/L Chloride Level 100 98-107 MMOL/L Carbon Dioxide Level 25 21-32 MMOL/L Anion Gap 13 5-14 MMOL/L Blood Urea Nitrogen 10 7-18 MG/DL Creatinine 0.89 0.60-1.30 MG/DL Estimat Glomerular Filtration Rate 90 BUN/Creatinine Ratio 11 Glucose Level 125 H 70-105 MG/DL Lactic Acid Level 1.28 0.50-2.00 MMOL/L Calcium Level 9.1 8.5-10.1 MG/DL Corrected Calcium 9.7 8.5-10.1 MG/DL Magnesium Level 2.2 1.6-2.4 MG/DL Total Bilirubin 0.4 0.1-1.0 MG/DL Aspartate Amino Transf (AST/SGOT) 50 H 5-34 U/L Alanine Aminotransferase (ALT/SGPT) 63 H 0-55 U/L Alkaline Phosphatase 184 H 40-136 U/L C-Reactive Protein 19.53 H <0.50 MG/DL Total Protein 7.2 6.4-8.2 GM/DL Albumin 3.2 3.2-4.5 GM/DL My Orders Orders - SERGE LIGHT MD Cbc With Automated Diff (05/31/21 02:41) Comprehensive Metabolic Panel (05/31/21 02:41) Blood Culture (05/31/21 02:41) Albuterol/Ipra Inhalation Soln (Duoneb I (05/31/21 02:45) Magnesium (05/31/21 02:41) Chest Pa/Lat (2 View) (05/31/21 02:41) O2 (05/31/21 02:41) Ed Iv/Invasive Line Start (05/31/21 02:41) Sputum Culture (05/31/21 02:41) Monitor-Rhythm Ecg Trace Only (05/31/21 02:41) Crp Fs (05/31/21 02:41) Lactic Acid Analyzer (05/31/21 02:41) Svn Small Volume Nebulizer (05/31/21 02:41) Morphine Injection (Morphine Injection (05/31/21 02:43) Ondansetron Injection (Zofran Injectio (05/31/21 02:43) Medications Given in ED Current Medications Medications Dose Ordered Sig/Alis Route Start Time Stop Time Status Last Admin Dose Admin Albuterol/ Ipratropium 3 ml ONCE ONCE INH 05/31/21 02:45 05/31/21 02:46 DC 05/31/21 03:01 3 ML Vital Signs/I&O 05/31/21 05/31/21 05/31/21 05/31/21 02:32 02:32 02:46 05:28 Temp 35.7 35.7 Pulse 108 108 Resp 28 B/P (MAP) 107/64 (78) 107/64 Pulse Ox 96 96 96 O2 Delivery Room Air Room Air Room Air Room Air Progress Progress Note #1: Progress Note from review of his previous visits he has had multiple CT scans showing worsening lung ca with postobstructive pneumonia. His most recent CT scan was from WednesdayMay 27. He has been on Cefdinir and Doxycyline most recently. He has O2 sat 96-97% on room air. Will check labs and cxr. Give Morphine for pain and help with air hunger, duoneb breathing treatment for cough, hemoptysis. CXR to evaluate his recent finding of progression to abscess or cavitary lesion in right chest. Progress Note #2: Progress Note labs show improving WBC count. He may be hemoconcentrated with his Hgb elevated compared to previous testing. Chemistry is stable without acute significant abnormality and the CRP is decreased from Apr. He has air fluid level in cavitary lesion on right upper lobe that on my review of films looks like it might be slightly improved. Pt resting comfortably and breathing better after Morphine and nebulizer. Progress Note #3: Progress Note Reviewed tests and imaging with pt and his mother. Pt has oxygen saturation that is staying in the upper 90s on room air. He is talking in complete sentences and even rambling on at times due to having the Morphine on board. he reports he is breathing easier. Advised that if he felt like he was still having too much pain or could not breath well enough I could discuss admit with avionics supervisor provider but he felt like he could manage at home if he took the prescribed dose of Phenergan with DM and slept more propped up. Will prescribe a few Morphine IR pills to try and help with his pain and breathing at home. Counseled to continue antibiotics. Use Humidifier or Vaporizer at bedside to help keep airway moist. Counseled on follow up and return precautions. He is to see Radiation/Oncology Wednesday and follow up with Pulmonary Wednesday. Diagnostic Imaging Diagonstic Imaging: Xray Plain Films/CT/US/NM/MRI: chest Comments [facility] [place], [place] NAME: ALEA COYNE JR [facility] REC#: [id number] PT STATUS: REG ER : 1970 PHYSICIAN: SERGE LIGHT MD ADMIT DATE: 05/31/21/ER FS Draft Date of Exam:05/31/21 CHEST PA/LAT (2 VIEW) HISTORY: Hemoptysis, right-sided chest pain TECHNIQUE: 2 views of the chest COMPARISON: 05/27/2021 FINDINGS: There is a cavitary lesion in the right upper lobe with an air-fluid level. This appears similar in size compared to 05/27/2021. No pleural effusion is seen. The cardiac silhouette is normal in size. No pneumothorax is identified. No new consolidation is seen. IMPRESSION: 1. Large cavitary lesion with air-fluid level seen in the right upper lobe. This appears similar to 05/27/2021. No new consolidation is seen. Dictated on workstation # [id number] Dict: 05/31/21522 Trans: 05/31/21 0530 CARLA [id number] Interpreted by: DUGLAS OLEA MD Electronically signed by: Reviewed: Reviewed by Me Departure Impression Primary Impression: Cough with hemoptysis Additional Impressions: Right upper lobe pneumonia Qualified Codes: J18.9 - Pneumonia, unspecified organism Lung cancer, upper lobe Qualified Codes: C34.11 - Malignant neoplasm of upper lobe, right bronchus or lung Disposition: HOME, SELF-CARE Condition: Stable Departure-Patient Inst. Decision time for Depature: 05:26 Referrals: DARREN CARNEY MD (PCP) Primary Care Physician VAIBHAV AUGUST Patient Instructions: Pneumonia, Adult ED, Coughing up Blood Add. Discharge Instructions: Continue taking the antibiotics to treat your infection in the lung May take the cough syrup to try and help suppress cough so you can rest better. Use a Humdifier or Vaporizer at the bedside to help keep your airway and the mucous with congestion moist and loose so it does not dry out while you sleep. This will help make it easier to cough up and not cause you to cough so hard. You could try taking the oral morphine to help with the cancer pain and lung pain from the pneumonia. If you are coughing up bright red blood, get more short of breath, have worsening symptoms instead of improving then call 911 or seek immediate care You might consider looking into Subscription plan for helicopter service such as [employer] to help with cost if you did have to be flown to . All discharge instructions reviewed with patient and/or family. Voiced understanding. Scripts Morphine Sulfate (Morphine Sulfate IR Tablet) 15 Mg Tablet 15 MG PO Q8H PRN for Lung Cancer pain in Chest for 7 Days, #21 TAB 0 Refills Prov: SERGE LIGHT MD 05/31/21 SERGE LIGHT MD May 31, 2021 02:53
[2021-05-31 03:23] LABS: HEMATOCRIT 55 % (40-54); HEMOGLOBIN 18.5 g/dL (13.3-17.7); MEAN CORPUSCULAR HEMOGLOBIN 30 pg (25-34); MEAN CORPUSCULAR VOLUME 90 fL (80-99)
[2021-05-31 03:24] LABS: BASOPHILS # (AUTO) 0.1 10^3/uL (0.0-0.1); BASOPHILS % (AUTO) 0 % (0-10); EOSINOPHILS # (AUTO) 0.1 10^3/uL (0.0-0.3); EOSINOPHILS % (AUTO) 1 % (0-10); LYMPHOCYTES # (AUTO) 1.5 X 10^3 (1.0-4.0); LYMPHOCYTES % (AUTO) 12 % (12-44); MEAN CORPUSCULAR HGB CONC 34 g/dL (32-36); MEAN PLATELET VOLUME 9.1 fL (9.0-12.2); MONOCYTES # (AUTO) 0.6 X 10^3 (0.0-1.0); MONOCYTES % (AUTO) 5 % (0-12); NEUTROPHILS # (AUTO) 10.6 X 10^3 (1.8-7.8); NEUTROPHILS % (AUTO) 82 % (42-75); PLATELET COUNT 397 10^3/uL (130-400)
[2021-05-31 03:42] LABS: BILIRUBIN,TOTAL 0.4 MG/DL (0.1-1.0); CALCIUM 9.1 MG/DL (8.5-10.1); CREATININE SERUM 0.89 MG/DL (0.60-1.30); MAGNESIUM 2.2 MG/DL (1.6-2.4)
[2021-05-31 03:43] LABS: ALBUMIN 3.2 GM/DL (3.2-4.5); TOTAL PROTEIN 7.2 GM/DL (6.4-8.2)
[2021-05-31] MEDS ORDERED: MORP15TA PO (05:25)
[2021-05-31 05:28] VITALS: BP 117/62
--- NOTE | 2021-05-31 05:30 | Diagnostic Imaging Report ---
HISTORY: Hemoptysis, right-sided chest pain TECHNIQUE: 2 views of the chest COMPARISON: 05/27/2021 FINDINGS: There is a cavitary lesion in the right upper lobe with an air-fluid level. This appears similar in size compared to 05/27/2021. No pleural effusion is seen. The cardiac silhouette is normal in size. No pneumothorax is identified. No new consolidation is seen. IMPRESSION: 1. Large cavitary lesion with air-fluid level seen in the right upper lobe. This appears similar to 05/27/2021. No new consolidation is seen. Dictated by: Dictated on workstation # [id number]
== END 2021-05-31 05:28 | disposition home or self-care (01) ==
LOC: EDUNIT# 02:24 → ER FS 02:26
DX: C34.11 Malignant neoplasm of upper lobe, right bronchus or lung (principal); J18.1 Lobar pneumonia, unspecified organism; J44.9 Chronic obstructive pulmonary disease, unspecified; I25.2 Old myocardial infarction
CPT/HCPCS: 36415; 71046; 80053; 83605; 83735; 85025; 86141; 87070; 87205; 93041; 94640

== ENCOUNTER 2021-06-02 15:38 | Emergency (ER) | payer MEDICAID ==
[~2021-06-02] VITALS: Ht 195.5 cm; Wt 97.5 kg
[~2021-06-02 15:38] MED LIST changes: +MORP15TA PO
--- OUTSIDE RECORDS SUMMARY | 2021-06-02 15:44 | XMS REPORT | Encounter Summary ---
Author Author [facility] Organization [facility] Address Unknown Phone Unavailable Care Team Providers Care Health Education Director Name Role Phone No Pcp, Na PCP Unavailable Reason for Visit * Reason Comments Abnormal Lung Imaging * Consult, Test & Treat (Routine) Referred By Contact Referred To Contact Status Reason Specialty Diagnoses / Procedures Rebecca Rea, BUILDING CODE ADMINISTRATOR [address] [place] [address] New Request Pulmonology Diagnoses Abnormal findings on diagnostic imaging of lung Encounter Details Care Team Description Date Type Department Dimas Trujillo MD [address] Ortho/Med Pavilion Lvl [address] [place] [address] [id number] Jass Vasquez MD [address] Ortho[facility] Lvl [address] [place] [address] [phone] Mass of upper lobe of right lung (Primar y Dx); Tobacco abuse; Chronic obstructive pulmonary disease, unspecified COPD type (HCC) 05/06/2021 Office Visit Pulmonology: Palmer Rocha ampus, Medical Pavilion [address] Level 4, [address] [address] Social History Date Tobacco Use [...] 11:15am. This will be at the Main [place] at [address] [place] [address]. - Nothing to eat or drink after [...] in at admitting, just inside the main [facility] entrance , located at [address] [place] [address], two and a half (2 1/2 ) hours before your procedure time. There is a parking garage (P3) located acros s from the entrance. - you will need a test car driver to and from the procedure. Only [...] or holidays: Call and request for the Stick Puller to be paged. - To cancel, change, or schedule a clinic appointment: Call our Pulmonary Schedu lers at Pulmonary Clinic Nurse Coordinator-Tenisha Burleson RN - Office: [phone] fa x: [phone] documented in this encounter Progress Notes * [...] mass. Patient was referred from Pulmonary in [place], [place] for a PET avid RUL mas [...] visit, discussed case with Dr Valerie Shankar, [facility] fellow and concur with our fellow's [...] 11:15am. This will be at the Main [place] at [address] [place] [address]. - Nothing to eat or drink after [...] the main hospital entrance , located at [address] [place] [address], two and a half (2 1/2 ) hours before your procedure time. There is a parking garage (P3) located acros s from the entrance. - you will need a test car driver to and from the procedure. Only [...] after business hours, weekends, or holidays: Call [phone] and request for the Stick Puller to be paged. - To cancel, change, or schedule a clinic appointment: Call our Pulmonary Schedu lers at Pulmonary Clinic Nurse Coordinator-Tenisha Burleson RN - Office: [phone] fa x: [phone] documented in this encounter Miscellaneous Notes * [...]
--- OUTSIDE RECORDS SUMMARY | 2021-06-02 15:44 | XMS REPORT | Encounter Summary ---
Author Author [facility] Organization [facility] Address Unknown Phone Unavailable Care Team Providers Care Painter Helper Spray Name Role Phone No Pcp, Na PCP Unavailable Reason for Referral * Consult, Test & Treat (Urgent) Referred By Contact Referred To Contact Status Reason Specialty Diagnoses / Procedures Jass Vasquez MD [email or web address] Orth[facility]/Med Pavilion [address] [address] Cc Radiation Therapy [address] [facility] [place] [address] Closed Specialty Services Radiation Diagnoses Required Therapy [...] Diagnoses / Procedures Jass Vasquez MD [email or web address] Orth[facility]/Med Pavilion Lvl [address] [place] [address] Cc - Ww Cl Exm/Proc Rm [address] [facility] [address] [place], [place] Authorized Specialty Services Oncology Diagnoses Required [...] Date Type Department Tiffany Shankar MD [address] [place] [address] Results 05/19/2021 Telephone Pulmonology: Palmer mayorga, Medical Pavilion [address] [place] [address]. Level 4, [address] [address] Social History Date Tobacco Use [...] Notes * Telephone Encounter - Kourtney Chan MA,CCC-TRIM MACHINE OPERATOR - 05/28/2021 3:58 PM CDT Cytology and pathology reports faxed to [facility]. Routing to Tenisha Burleson RN T * Telephone Encounter - Tenisha Burleson RN - 05/28/2021 9:29 AM CDT Spoke with Allen with [facility]. She is requesting to have biopsy r esults from patient's 05/09/21 bronchoscopy refaxed to them due to an issue with their fax machine. Will request to have cytology and pathology results faxed to [facility] at [phone]. Tenisha Burleson RN * Telephone Encounter - Tenisha Burleson RN - 05/27/2021 4:20 PM CDT Returned phone call to Allen with [facility] and LVM. Tenisha nelson RN * Telephone Encounter - Kourtney Chan MA,CCC-TRIM MACHINE OPERATOR - 05/20/2021 4:25 PM CDT Bronch report and results, office note and telephone encounter faxed to [facility]. Routing to Tenisha Burleson RN T * Telephone Encounter - Tenisha Burleson RN - 05/20/2021 3:43 PM CDT Images from the original note were not included. Spoke with patient and discussed follow up plan. Patient stated he wanted to fo llow with oncology in [place], [place]. He is having difficulty with transportatio and feels he is unable to find reliable transportation to follow up at . He requested to have information sent to Dr Deni Beckman in [place] and to his p ulmonologist. Information already faxed to Rebecca FREEDMAN with [facility] on 05/16. He has an appt with pulmonology on 05/28 and his PCP on 05/29. Will request to have OVN, bronch report and results faxed to Dr Beckman at ([facility]). Referral to oncology cancelled and MRI head [...] patient again tomorrow. Neha ent lives in [place] and will likely want to have MRI completed closer to [facility]. documented in this encounter Plan of Treatment [...]
--- OUTSIDE RECORDS SUMMARY | 2021-06-02 15:44 | XMS REPORT | Encounter Summary ---
Author Author [facility] Organization [facility] Address Unknown Phone Unavailable Care Team Providers Care Business Rules Analyst Name Role Phone No Pcp, Na PCP Unavailable Encounter Details Care Team Description Date Type Department Jass Vasquez MD [address] Ortho/Med Pavilion Lvl [address] [place] [address] Mass of upper lobe of right lung (Primar y Dx); Encounter for screening laboratory testing for COVID-19 virus in asymptomatic patient 05/06/2021 Prep for Case Pulmonology: Main C ampus, Medical Pavilion [address], [address] [address] Social History Date Tobacco Use [...] >60 >60 mL/min [facility] Comment: [place] The eGFR is not validated f or use in drug dosing adjustments. Continue to use estimated creatinine clearance per dosing reference text. Please contact the Clinical Pharmacist for questions. eGFR >60 >60 mL/min [facility] [place] Comment: The eGFR is not validated for use in drug dosing adjustments. Continue to use estimated creatinine clearance per dosing reference text. Please contact the Clinical Pharmacist for questions. Specimen Blood Performing Organization Address City/State/ZIP Code P hope Number [facility] [address] [place] [address] * CBC (05/06/2021 5:29 PM CDT) Pathologist [facility] White Blood 8.3 4.5 - 11.0 K/UL [...] P hope Number [facility] [address] [place] [address] * COVID-19 (SARS-COV-2) PCR (05/06/2021 5:13 PM CDT) COVID-19 FLOCKED SWAB MAIN LAB (SARS-CoV-2) NASOPHARYNGEAL PCR Source COVID-19 NOT DETECTED DN-NOT DETECTED [facility] (SARS-CoV-2) Comment: PCR This assay [...] Performance characteristics have been verified by the [facility]. Fact sheet for providers: https://www.fda.gov/media/137 78/download Fact sheet for patients: https://www.fda.gov/media/4605 81/download Specimen Flocked Swab - Nasopharyngeal Performing Organization Address City/State/ZIP Code P hope Number MAIN LAB [address] [place] [address] documented in this encounter Visit Diagnoses Diagnosis [...]
--- OUTSIDE RECORDS SUMMARY | 2021-06-02 15:44 | XMS REPORT | Encounter Summary ---
Author Author [facility] Organization [facility] Address Unknown Phone Unavailable Care Team Providers Care Public Health Educator Name Role Phone No Pcp, Na PCP Unavailable Encounter Details Care Team Description Date Type Department 05/13/2021 Hospital Imaging: [facility] [place] [facility], Encounter [facility] [address], [address] [place] [address] Social History Date Tobacco Use [...]
--- OUTSIDE RECORDS SUMMARY | 2021-06-02 15:44 | XMS REPORT | Encounter Summary ---
Author Author [facility] Organization [facility] Address Unknown Phone Unavailable Care Team Providers Care Automatic Casting Machine Operator Name Role Phone No Pcp, Na PCP Unavailable Reason for Visit * Auth/Cert Referred By Contact Referred To Contact Status Reason Specialty Diagnoses / Procedures Diagnoses Mass of upper lobe of right lung Mass of upper lobe of right lung [R91.8] P rocedures MT BRNCHSC INCL FLUOR GDNCE DX W/CELL WASHG SPX MT BRONCHOSCOPY W/CPTR-ASST IMAGE-GUIDED NAVIGATION MT BRNCHSC W/BRNCL ALVEOLAR LAVAGE MT BRNCHSC EBUS GUIDED SAMPL 3/> NODE STATION/STRUX MT BRONCHOSCOPY W/TRANSBRONCHIAL LUNG BX 1 LOBE MT BRONCHOSCOPY NEEDLE BX TRACHEA MAIN STEM&/BRON BRONCHOSCOPY [...] Date Type Department Ynes Norris MD [address] [place] [address] [phone] 05/09/2021 Anesthesia Operating Room: [facility] [address] [facility] [address] 2 [place] [address] Anesthesia Record Responsible Anesthesiologist Anesthesia [...] Hand; 20 G; 05/09/21 1055 by EBONY uDpree No; 2; 05/09/21; 1425 AMY Hendricks 05/09/21 [...] mass. Patient was referred from Pulmonary in [place], [place] for a PET avid RUL mas [...] Blood Consent: consented Plan discussed with: anesthesiologist, INTERNATIONAL PROJECT MANAGER and surgeon/proceduralist. documented in this encounter Plan [...]
--- OUTSIDE RECORDS SUMMARY | 2021-06-02 15:44 | XMS REPORT | Encounter Summary ---
Author Author [facility] Organization [facility] Address Unknown Phone Unavailable Care Team Providers Care Security System Analyst Name Role Phone No Pcp, Na PCP Unavailable Reason for Visit * Auth/Cert Referred By Contact Referred To Contact Status Reason Specialty Diagnoses / Procedures Diagnoses Mass of upper lobe of right lung Mass of upper lobe of right lung [R91.8] P rocedures PA BRNCHSC INCL FLUOR GDNCE DX W/CELL WASHG SPX PA BRONCHOSCOPY W/CPTR-ASST IMAGE-GUIDED NAVIGATION PA BRNCHSC W/BRNCL ALVEOLAR LAVAGE PA BRNCHSC EBUS GUIDED SAMPL 3/> NODE STATION/STRUX PA BRONCHOSCOPY W/TRANSBRONCHIAL LUNG BX 1 LOBE PA BRONCHOSCOPY NEEDLE BX TRACHEA MAIN STEM&/BRON BRONCHOSCOPY [...] Date Type Department Jass Vasquez MD [address] Ortho/Med Pavilion Lvl [address] [place] [address] Mass of upper lobe of right lung 05/09/2021 Hospital Operating Room: [facility], [facility] [address] [facility] [address] [place] [address] Social History Date Tobacco Use [...] performed on 05-06-21. Jass Vasquez MD Pager [phone] * Brea Shankar MD - 05/06/2021 4:00 PM CDT Subjective: History of Present Illness Alea Coyne Jr. is a 51 y.o. male with PMH of HLD, COPD, CAD, reported rec ent diagnosis of CHF, history of seizures (not on AEDs), ?history of pancreatic cancer in 2013, and current tobacco abuse referred for a PET avid RUL mass. Patient was referred from Pulmonary in [place], [place] for a PET avid RUL mas [...] visit, discussed case with Dr Valerie Shankar, [facility] fellow and concur with our fellow's [...] 11:15am. This will be at the Main [place] at [address] [place] [address]. - Nothing to eat or drink after [...] in at admitting, just inside the main [facility] entrance , located at [address] [place] [address], two and a half (2 1/2 ) hours before your procedure time. There is a parking garage (P3) located acros s from the entrance. - you will need a recycler forklift driver truck driver to and from the procedure. [...] or holidays: Call and request for the Wardrobe Attendant to be paged. - To cancel, change, or schedule a clinic appointment: Call our Pulmonary Schedu lers at Pulmonary Clinic Nurse Coordinator-Tenisha Burleson RN - Office: [phone] fa x: [phone] documented in this encounter Plan of Treatment [...] SPECIMENS (05/09/2021 1:30 PM CDT) PATHOLOGY [facility] [employer] [facility] [email or web address] Department of Pathology and Laboratory Medicine [address] [place] [address] Surgical Pathology Office: [phone] SURGICAL PATHOLOGY REPORT NAME: ALEA COYNE SURG PATH #: [id number] MR #: [id number] SPECIMEN CLASS: SR BILLING #: [id number] ALT ID #: LOCATION: [facility] DATE OF [...] Cell types evaluated: Tumor cells FDA status: Pinball Machine Repairer ############################## ############################## ############ Final Diagnosis: A. "RUL mass", biopsy: Squamous cell carcinoma, keratinizing. See comment. Comment: Immunohistochemical stains show the tumor cells are positive for p40, and negative for DASIA-3 and TTF-1 supporting the above diagnosis. Additional stain for PD-L1 will be performed and reported in an addendum. Pursuant to the Casket Liner Program at the [facility] Pathology [...] of Pathology and Laboratory Medicine of the [facility] ([employer]) in compliance with CLIA'88 regulations. [...] of Pathology and Laboratory Medicine of the [facility]. It has not been cleared or approved by the FDA. The FDA has determined that such clearance or approval is not necessary. Specimen Other (Specify) Performing Organization Address City/State/ZIP Code P hope Number [facility] [address] [place] [address] * CYTOLOGY FNA LYMPH NODE (05/09/2021 1:15 PM CDT) Cytology [facility] [email or web address] Department of Pathology and Laboratory Medicine [address] [place] [address] Surgical Pathology Office: [phone] CYTOLOGY REPORT NAME: ALEA COYNE SURG PATH #: [id number] MR #: [id number] ALT ID #: BILLING #: [id number] LOCATION: [facility] DATE OF PROCEDURE: 05/09/2021 AGE: [...] determination of adequacy was performed by the endless bed drum sander, JESSICA, on Diff-Quik stained slide(s). Passes one [...] Code P hope Number MAIN LAB [address] [place] [address] * CT CHEST WO CONTRAST (05/09/2021 12:30 [...] Report Procedure Date: 05/09/2021 RESULTS 11:57 AM [facility]: [id number] Date of : 1970 Gender: Male Attending Physician: Jass Vasquez MD Procedure: Bronchoscopy Indications: Right upper lobe mass Providers: Jass Vasquez MD (Doctor), Brea Shankar MD (Fellow), Akbar Valderrama RN (Nurse), Bryan Munroe (Glove Former) Referring Physician: Rebecca Rea Medications: General Anesthesia [...] aspiration was also performed using an Olympus LikeziShot 21 gauge needle in the right superior [...]
--- OUTSIDE RECORDS SUMMARY | 2021-06-02 15:44 | XMS REPORT | Encounter Summary ---
Author Author [facility] Organization [facility] Address Unknown Phone Unavailable Care Team Providers Care Remote Recruiter Name Role Phone No Pcp, Na PCP Unavailable Reason for Visit * Auth/Cert Referred By Contact Referred To Contact Status Reason Specialty Diagnoses / Procedures Diagnoses Mass of upper lobe of right lung Mass of upper lobe of right lung [R91.8] P rocedures [place] BRNCHSC INCL FLUOR GDNCE DX W/CELL WASHG SPX TX BRONCHOSCOPY W/CPTR-ASST IMAGE-GUIDED NAVIGATION TX BRNCHSC W/BRNCL ALVEOLAR LAVAGE TX BRNCHSC EBUS GUIDED SAMPL 3/> NODE STATION/STRUX TX BRONCHOSCOPY W/TRANSBRONCHIAL LUNG BX 1 LOBE TX BRONCHOSCOPY NEEDLE BX TRACHEA MAIN STEM&/BRON BRONCHOSCOPY [...] Date Type Department Jass Vasquez MD [address] Ortho/Med Pavilion Lvl [address] [place] [address] BRONCHOSCOPY DIAGNOSTIC WITH/ WITHOUT CE LL WASHING - FLEXIBLE 05/09/2021 Surgery Operating Room: [facility], [address] [place] [address] Surgery Details Trauma Case? Date/Time [...] performed on 05-06-21. Jass Vasquez MD Pager [phone] * Brea Shankar MD - 05/06/2021 4:00 PM CDT Subjective: History of Present Illness Alea Coyne Jr. is a 51 y.o. male with PMH of HLD, COPD, CAD, reported rec ent diagnosis of CHF, history of seizures (not on AEDs), ?history of pancreatic cancer in 2013, and current tobacco abuse referred for a PET avid RUL mass. Patient was referred from Pulmonary in [place], [place] for a PET avid RUL mas [...] visit, discussed case with Dr Valerie Shankar, [facility] fellow and concur with our fellow's [...] of 11:15am. This will be at the [facility] at [address] [place] [address]. - Nothing to eat or drink after [...] check in at admitting, just inside the [facility] entrance , located at [address] [place] [address], two and a half (2 1/2 ) hours before your procedure time. There is a parking garage (P3) located acros s from the entrance. - you will need a truck driver heavy to and from the procedure. Only one [...] or holidays: Call and request for the Heat Transfer Technician to be paged. - To cancel, change, or schedule a clinic appointment: Call our Pulmonary Schedu lers at Pulmonary Clinic Nurse Coordinator-Tenisha Burleson RN - Office: [phone] fa x: [phone] documented in this encounter Plan of Treatment [...] SPECIMENS (05/09/2021 1:30 PM CDT) PATHOLOGY [facility] [employer] [facility] [email or web address] Department of Pathology and Laboratory Medicine [address] [place] [address] Surgical Pathology Office: [phone] SURGICAL PATHOLOGY REPORT NAME: ALEA COYNE SURG PATH #: [id number] MR #: [id number] SPECIMEN CLASS: SR BILLING #: [id number] ALT ID #: LOCATION: [facility] DATE OF [...] Cell types evaluated: Tumor cells FDA status: Criminal Psychologist ############################## ############################## ############ Final Diagnosis: A. "RUL mass", biopsy: Squamous cell carcinoma, keratinizing. See comment. Comment: Immunohistochemical stains show the tumor cells are positive for p40, and negative for DASIA-3 and TTF-1 supporting the above diagnosis. Additional stain for PD-L1 will be performed and reported in an addendum. Pursuant to the Tape Folding Machine Operator Program at the [facility] Pathology Department, selected slides from this [...] of Pathology and Laboratory Medicine of the [facility] ([employer]) in compliance with CLIA'88 [...] of Pathology and Laboratory Medicine of the [facility]. It has not been cleared or approved by the FDA. The FDA has determined that such clearance or approval is not necessary. Specimen Other (Specify) Performing Organization Address City/State/ZIP Code P hope Number [facility] [address] [place] [address] * CYTOLOGY FNA LYMPH NODE (05/09/2021 1:15 PM CDT) Cytology [facility] [email or web address] Department of Pathology and Laboratory Medicine [address] [place] [address] Surgical Pathology Office: [phone] CYTOLOGY REPORT NAME: ALEA COYNE SURG PATH #: [id number] MR #: [id number] ALT ID #: BILLING #: [id number] LOCATION: [facility] DATE OF PROCEDURE: 05/09/2021 AGE: [...] determination of adequacy was performed by the community health counselor, JESSICA, on Diff-Quik stained slide(s). Passes one [...] Number [facility] [address] [place] [address] * CT CHEST WO CONTRAST (05/09/2021 12:30 [...] Procedure Date: 05/09/2021 RESULTS 11:57 AM CSN: [id number] Date of : 1970 Gender: Male Attending Physician: Jass Vasquez MD Procedure: Bronchoscopy Indications: Right upper lobe mass Providers: Jass Vasquez MD (Doctor), Brea Shankar MD (Fellow), Akbar Valderrama RN (Nurse), Bryan Munroe (Motor Vehicle Dispatcher) Referring Physician: Rebecca Rea Medications: General Anesthesia [...] aspiration was also performed using an Olympus Spruce MediaiShot 21 gauge needle in the right superior [...]
--- OUTSIDE RECORDS SUMMARY | 2021-06-02 15:44 | XMS REPORT | Encounter Summary ---
Author Author [facility] Organization [facility] Address Unknown Phone Unavailable Care Team Providers Care Jailer Chief Name Role Phone No Pcp, Na PCP Unavailable Encounter Details Care Team Description Date Type Department Jass Vasquez MD [address] Ortho/Med Pavilion Lvl [address] [place] [address] 05/06/2021 Hospital Laboratory: Main [place], Encounter Medical Pavilion [address], [address] [place] [address] Social History Date Tobacco Use Types Packs/Day [...] Organization Address City/State/ZIP Code P hope Number [facility] [address] [place] [address] * BASIC METABOLIC PANEL (05/06/2021 5:29 PM CDT) Sodium 141 137 - 147 MMOL/L [facility] Potassium 5.1 3.5 - 5.1 MMOL/L [facility] Chloride 105 98 - 110 MMOL/L [facility] CO2 28 21 - 30 MMOL/L [facility] Anion Gap 8 3 - 12 [facility] Glucose 91 70 - 100 MG/DL [facility] Blood Urea 12 7 - 25 MG/DL [facility] Nitrogen Creatinine 1.23 0.4 - 1.24 MG/DL [facility] Calcium 9.9 8.5 - 10.6 MG/DL MAIN LAB eGFR Non >60 >60 mL/min [facility] Comment: [place] The eGFR is not validated f or use in drug dosing adjustments. Continue to use estimated creatinine clearance per dosing reference text. Please contact the Clinical Pharmacist for questions. eGFR >60 >60 mL/min [facility] [place] Comment: The eGFR is not validated for use in drug dosing adjustments. Continue to use estimated creatinine clearance per dosing reference text. Please contact the Clinical Pharmacist for questions. Specimen Blood Performing Organization Address City/[facility] P hope Number [facility] [address] [place] [address] * COVID-19 (SARS-COV-2) PCR (05/06/2021 5:13 PM CDT) Pathologist [facility] COVID-19 FLOCKED SWAB [facility] (SARS-CoV-2) NASOPHARYNGEAL PCR Source COVID-19 NOT DETECTED DN-NOT DETECTED [facility] (SARS-CoV-2) Comment: PCR This assay is [...] Performance characteristics have been verified by the [facility] Clinical Laboratories. Fact sheet for providers: https://www.fda.gov/media/7867 78/download Fact sheet for patients: https://www.fda.gov/media/4798 81/download Specimen Flocked Swab - Nasopharyngeal Performing Organization Address City/State/ZIP Code P hope Number MAIN LAB [address] [place] [address] documented in this encounter Visit Diagnoses Diagnosis [...]
[2021-06-02 16:36] LABS: HEMOGLOBIN 13.4 g/dL (13.3-17.7); MEAN CORPUSCULAR HEMOGLOBIN 30 pg (25-34); MEAN CORPUSCULAR HGB CONC 33 g/dL (32-36); MEAN PLATELET VOLUME 9.7 fL (9.0-12.2)
--- NOTE | 2021-06-02 16:37 | Diagnostic Imaging Report ---
INDICATION: History of lung carcinoma and pneumonia. Hemoptysis. EXAMINATION: Chest 06/02/2021 COMPARISON: 05/27/2021 FINDINGS: There is a persistent consolidation within the right upper lung with a few internal lucencies noted. This could be due to better aeration of the right upper lobe with improving pneumonia. An underlying cavitary lesion is difficult to exclude and continued follow-up or CT could provide further characterization. The remaining lungs clear. No effusions. No pneumothorax. Heart and pulmonary vasculature stable. No acute osseous abnormality. IMPRESSION: 1. Diffuse infiltrate and airspace opacity in the right upper lobe with interval lucencies developing within the mid aspect of the abnormality. See above discussion and recommendations. Dictated by: Dictated on workstation # [id number]
[2021-06-02 16:38] LABS: BASOPHILS % (AUTO) 0 % (0-10); EOSINOPHILS # (AUTO) 0.1 10^3/uL (0.0-0.3); EOSINOPHILS % (AUTO) 1 % (0-10); HEMATOCRIT 40 % (40-54); LYMPHOCYTES # (AUTO) 1.8 10^3/uL (1.0-4.0); LYMPHOCYTES % (AUTO) 16 % (12-44); MEAN CORPUSCULAR VOLUME 91 fL (80-99); MONOCYTES # (AUTO) 0.5 10^3/uL (0.0-1.0); MONOCYTES % (AUTO) 4 % (0-12); NEUTROPHILS # (AUTO) 8.5 10^3/uL (1.8-7.8); NEUTROPHILS % (AUTO) 78 % (42-75); PLATELET COUNT 442 10^3/uL (130-400); WHITE BLOOD COUNT 10.9 10^3/uL (4.3-11.0)
[2021-06-02 16:47] LABS: ALBUMIN 3.1 GM/DL (3.2-4.5)
[2021-06-02 16:48] LABS: POTASSIUM 4.7 MMOL/L (3.6-5.0)
[2021-06-02 16:49] LABS: CALCIUM 9.7 MG/DL (8.5-10.1)
[2021-06-02 16:52] LABS: BILIRUBIN,TOTAL 0.4 MG/DL (0.1-1.0)
[2021-06-02 16:54] LABS: CREATININE SERUM 0.79 MG/DL (0.60-1.30)
--- NOTE | 2021-06-02 17:01 | ED Cough/URI ---
General Chief Complaint: Cough/Cold/Flu Symptoms Stated Complaint: COUGHING UP BLOOD/DX W/ PNEUMONIA/CA PT Nursing Triage Note: Pt ambulatory into ER with complaint of coughing up blood. Pt states that this has been going on since wednesday. Pt was seen wednesday night in [facility]. Pt was also diagnosed with Lung cancer in January. Pt states that he was diagnosed with right lower lobe pneumonia 2 weeks ago. Pt coughs up some dark brown phlegm while Nurse is in room. Source: patient Exam Limitations: no limitations History of Present Illness Date Seen by Provider: Jun 02, 2021 Time Seen by Provider: 16:10 Initial Comments Patient is a 51-year-old male who presents to the emergency department with a chief complaint of coughing up blood. Patient has a history of lung cancer affecting his right lung. He is being worked up by pulmonology and heme-onc here at [facility]. Patient states that he was seen multiple times over over the course of the last couple of weeks, most recently being placed on antibiotics on May 29. He is currently on cefdinir and doxycycline. Patient states that he started coughing up blood 4 days ago. Blood-streaked sputum. He is not lightheaded or dizzy. He states that he has increased cough with position changes specifically with laying completely flat and sitting straight up. He denies fevers or chills. He has had a little chest discomfort related to persistent cough. No nausea, vomiting or diarrhea. He is scheduled for follow-up tomorrow to complete the starting process of radiation and chemotherapy. He also has a scheduled pulmonology appointment that coincides with this treatment. Patient became scared today when he noticed that every time he coughed he coughe d up some blood-tinged sputum. All other review of systems reviewed and negative except as stated. Timing/Duration: week Severity/Quality: moderate Prior Episodes/Possible Cause: frequent episodes Modifying Factors: Improves With Albuterol Inhaler Associated Symptoms: chest pain/soreness, shortness of breath (with cough) Allergies and Home Medications Allergies Coded Allergies: ofloxacin (Verified Allergy, Mild, 07/17/19) acetaminophen (Verified Allergy, Unknown, Hives, 03/13/20) gabapentin (Verified Allergy, Unknown, DELUSIONS, 05/13/21) Penicillins (Verified Adverse Reaction, Unknown, Pt has received Ceftriaxone in the past, 07/17/19) aspirin (Verified Adverse Reaction, Unknown, 07/17/19) latex (Verified Adverse Reaction, Unknown, 07/17/19) Uncoded Allergies: TAPE (Allergy, Mild, 07/17/09) Patient Home Medication List Home Medication List Reviewed: Yes Fenofibrate Nanocrystallized (Fenofibrate) 145 Mg Tablet, 145 MG PO DAILY Prescribed by: CONNIE JARVIS on 12/18/20 1004 Hydrocodone/Acetaminophen (Hydrocodone-Acetamin 5-325 mg) 1 Each Tablet, 1 TAB PO Q6H PRN for PAIN-MODERATE (5-7) Prescribed by: RIGOBERTO WARE on 04/25/21 1701 Morphine Sulfate (Morphine Sulfate IR Tablet) 15 Mg Tablet, 15 MG PO Q8H PRN for Lung Cancer pain in Chest Prescribed by: SERGE LIGHT on 05/31/21 0526 Oxycodone HCl/Acetaminophen (Oxycodone-Acetaminophen 5-325) 1 Each Tablet, 1 EACH PO Q4H PRN for PAIN-SEVERE (8-10) Prescribed by: SERGE LIGHT on 02/10/21 1201 Review of Systems Review of Systems Constitutional: see HPI EENTM: no symptoms reported Respiratory: cough, dyspnea on exertion, hemoptysis, orthopnea, phlegm, short of breath (with cough) Cardiovascular: chest pain (discomfort) Gastrointestinal: no symptoms reported Genitourinary: no symptoms reported Musculoskeletal: no symptoms reported Skin: no symptoms reported All Other Systems Reviewed Negative Unless Noted: Yes Past Iknatob-Hfhhjv-Rntpye Hx Patient Social History Tobacco Use?: No Use of E-Cig and/or Vaping dev: No Substance use?: No Alcohol Use?: No Pt feels they are or have been: No Immunizations Up To Date Tetanus Booster (TDap): Less than 5yrs PED Vaccines UTD: Yes Influenza Vaccine Up-to-Date: No; Not Current First/Initial COVID19 Vaccinat: not vacc Second COVID19 Vaccination Deonte: not vacc Seasonal Allergies Seasonal Allergies: No Past Medical History Surgeries: Yes (hernia repair, left testicle injury, brain surgery, cardiac stent) Cardiac, Coronary Stent, Orthopedic, Thyroidectomy Respiratory: Yes COPD Currently Using CPAP: No Currently Using BIPAP: No Cardiac: Yes (STENT) Coronary Artery Disease, Heart Attack Neurological: Yes Seizure Disorder Reproductive Disorders: No Sexually Transmitted Disease: No HIV/AIDS: No Genitourinary: Yes Kidney Stones Gastrointestinal: No Musculoskeletal: No Endocrine: No HEENT: Yes Loss of Vision: Bilateral Cancer: Yes Lung, Pancreatic Psychosocial: Yes ("anger issues") Integumentary: No Blood Disorders: No Adverse Reaction/Blood Tranf: No (N/A) Family Medical History Stroke Physical Exam Vital Signs - First Documented 06/02/21 15:54 Temp 36.8 Pulse 85 Resp 20 B/P (MAP) 122/60 (80) Pulse Ox 97 O2 Delivery Room Air Capillary Refill : Less Than 3 Seconds Height: 6'4.00" Weight: 225lbs. 0.0oz. 102.466547yj; 25.00 BMI Method:Stated General Appearance: WD/WN, no apparent distress HEENT: PERRL/EOMI Neck: normal inspection Respiratory: other (crackels right midlung) Cardiovascular: regular rate, rhythm Gastrointestinal: normal bowel sounds, non tender, soft Extremities: non-tender, normal inspection, no pedal edema Neurologic/Psychiatric: alert, oriented x 3 Skin: normal color, warm/dry Progress/Results/Core Measures Suspected Sepsis SIRS Temperature: Pulse: 85 Respiratory Rate: 20 Laboratory Tests 06/02/21 16:29: White Blood Count 10.9 Blood Pressure 122 /60 Mean: 80 Laboratory Tests 06/02/21 16:29: Creatinine 0.79, Platelet Count 442H, Total Bilirubin 0.4 Results/Orders Lab Results Laboratory Tests Test 06/02/21 16:29 Range/Units White Blood Count 10.9 4.3-11.0 10^3/uL Red Blood Count 4.43 4.30-5.52 10^6/uL Hemoglobin 13.4 # 13.3-17.7 g/dL Hematocrit 40 40-54 % Mean Corpuscular Volume 91 80-99 fL Mean Corpuscular Hemoglobin 30 25-34 pg Mean Corpuscular Hemoglobin Concent 33 32-36 g/dL Red Cell Distribution Width 12.8 10.0-14.5 % Platelet Count 442 H 130-400 10^3/uL Mean Platelet Volume 9.7 9.0-12.2 fL Immature Granulocyte % (Auto) 1 % Neutrophils (%) (Auto) 78 H 42-75 % Lymphocytes (%) (Auto) 16 12-44 % Monocytes (%) (Auto) 4 0-12 % Eosinophils (%) (Auto) 1 0-10 % Basophils (%) (Auto) 0 0-10 % Neutrophils # (Auto) 8.5 H 1.8-7.8 10^3/uL Lymphocytes # (Auto) 1.8 1.0-4.0 10^3/uL Monocytes # (Auto) 0.5 0.0-1.0 10^3/uL Eosinophils # (Auto) 0.1 0.0-0.3 10^3/uL Basophils # (Auto) 0.0 0.0-0.1 10^3/uL Immature Granulocyte # (Auto) 0.1 0.0-0.1 10^3/uL Percent Immature Platelet Fraction 5.7 0.0-7.6 % Sodium Level 134 L 135-145 MMOL/L Potassium Level 4.7 3.6-5.0 MMOL/L Chloride Level 100 98-107 MMOL/L Carbon Dioxide Level 22 21-32 MMOL/L Anion Gap 12 5-14 MMOL/L Blood Urea Nitrogen 8 7-18 MG/DL Creatinine 0.79 0.60-1.30 MG/DL Estimat Glomerular Filtration Rate 103 BUN/Creatinine Ratio 10 Glucose Level 95 70-105 MG/DL Calcium Level 9.7 8.5-10.1 MG/DL Corrected Calcium 10.4 H 8.5-10.1 MG/DL Total Bilirubin 0.4 0.1-1.0 MG/DL Aspartate Amino Transf (AST/SGOT) 48 H 5-34 U/L Alanine Aminotransferase (ALT/SGPT) 67 H 0-55 U/L Alkaline Phosphatase 154 H 40-136 U/L Total Protein 7.0 6.4-8.2 GM/DL Albumin 3.1 L 3.2-4.5 GM/DL My Orders Orders - BROCK SOLER MD Ed Iv/Invasive Line Start (06/02/21 15:56) Cbc With Automated Diff (06/02/21 15:56) Comprehensive Metabolic Panel (06/02/21 15:56) Chest 1 View, Ap/Pa Only (06/02/21 15:56) Vital Signs/I&O 06/02/21 15:54 Temp 36.8 Pulse 85 Resp 20 B/P (MAP) 122/60 (80) Pulse Ox 97 O2 Delivery Room Air Capillary Refill : Less Than 3 Seconds Blood Pressure Mean: 80 Progress Note : Time: 17:59 Progress Note Patient's labs reviewed, reassuring, hemoglobin is stable. Chemistries are also reassuring. Chest x-ray shows mild improved aeration in the right upper and right middle lobe. Patient's vital signs are stable. Oxygen 97% on room air. Patient exhibits no increased work of breathing or distress. Discussed with him all these findings. I feel like he is safe for discharged home. He will continue his antibiotics and follow-up tomorrow with heme-onc and pulmonology as scheduled. All questions are sought and answered. Patient is stable for discharge. Diagnostic Imaging Diagonstic Imaging: Xray Plain Films/CT/US/NM/MRI: chest Comments [facility] [place] NAME: ALEA COYNE [facility] REC#: [id number] PT STATUS: REG ER : 1970 PHYSICIAN: BROCK SOLER MD ADMIT DATE: 06/02/21/ER Signed Date of Exam:06/02/21 CHEST 1 VIEW, AP/PA ONLY INDICATION: History of lung carcinoma and pneumonia. Hemoptysis. EXAMINATION: Chest 06/02/2021 COMPARISON: 05/27/2021 FINDINGS: There is a persistent consolidation within the right upper lung with a few internal lucencies noted. This could be due to better aeration of the right upper lobe with improving pneumonia. An underlying cavitary lesion is difficult to exclude and continued follow-up or CT could provide further characterization. The remaining lungs clear. No effusions. No pneumothorax. Heart and pulmonary vasculature stable. No acute osseous abnormality. IMPRESSION: 1. Diffuse infiltrate and airspace opacity in the right upper lobe with interval lucencies developing within the mid aspect of the abnormality. See above discussion and recommendations. Dictated by: Dictated on workstation # [id number] Dict: 06/02/21 1634 Trans: 06/02/211700 [facility] [id number] Interpreted by: SOUMYA INTERIANO MD Electronically signed by: SOUMYA INTERIANO MD 06/02/211700 Departure Impression Primary Impression: Cough with hemoptysis Additional Impressions: Lung cancer Qualified Codes: C34.91 - Malignant neoplasm of unspecified part of right bronchus or lung Pneumonia Qualified Codes: J18.9 - Pneumonia, unspecified organism Disposition: HOME, SELF-CARE Condition: Stable Departure-Patient Inst. Decision time for Depature: 17:02 Referrals: DARREN CARNEY MD (PCP/Family) Primary Care Physician Patient Instructions: Pneumonia, Adult ED Add. Discharge Instructions: Drink plenty of fluids to stay well-hydrated. Continue your antibiotics as prescribed. Use your inhalers every 4 hours as needed for shortness of breath. Continue your cough medication. Please keep your appointments with hematology/oncology tomorrow. Come back to the emergency department for any worsening shortness of breath, worsening bloody sputum or other emergent concerns. Copy Copies To 1: VAIBHAV RODRIGUEZ KATHRYN M MD Jun 02, 2021 17:01
[2021-06-02 18:10] VITALS: BP 113/65
== END 2021-06-02 18:05 | disposition home or self-care (01) ==
LOC: EDUNIT# 15:38 → ER 15:40
DX: C34.11 Malignant neoplasm of upper lobe, right bronchus or lung (principal); J18.9 Pneumonia, unspecified organism; J44.9 Chronic obstructive pulmonary disease, unspecified; I25.2 Old myocardial infarction
CPT/HCPCS: 36415; 71045; 80053; 85025

== ENCOUNTER 2021-06-04 14:31 | Outpatient (CLI) | payer MEDICAID ==
[~2021-06-04] VITALS: Ht 195.6 cm; Wt 97.3 kg
[2021-06-04] MEDS ORDERED: DOXY-311 PO (16:56)
[2021-06-04] MEDS ORDERED: CEFD300C3 PO (16:56)
[2021-06-04] MEDS ORDERED: ALBU90AE IH (16:56)
[2021-06-04] MEDS ORDERED: TIOT4MIS2 IH (16:56)
[2021-06-04] MEDS ORDERED: BUDE10.26 IH (16:56)
== END 2021-06-04 16:59 | disposition home or self-care (01) ==
LOC: PREOP 14:31
PROVIDERS: ATTEND Surgery
DX: Z01.818 Encounter for other preprocedural examination (principal)

== ENCOUNTER 2021-06-05 11:04 | Day surgery (SDC) | payer MEDICAID ==
[~2021-06-05] VITALS: Ht 195.6 cm; Wt 97.3 kg
[~2021-06-05 11:04] MED LIST changes: +ALBU90AE IH; +BUDE10.26 IH; +DOXY-311 PO; +TIOT4MIS2 IH
--- OUTSIDE RECORDS SUMMARY | 2021-06-05 11:09 | XMS REPORT | Encounter Summary ---
Author Author [facility] Organization [facility] Address Unknown Phone Unavailable Care Team Providers Care Senior Electrical Engineer Name Role Phone No Pcp, Na PCP Unavailable Reason for Visit * Auth/Cert Referred By Contact Referred To Contact Status Reason Specialty Diagnoses / Procedures Diagnoses Mass of upper lobe of right lung Mass of upper lobe of right lung [R91.8] P rocedures AL BRNCHSC INCL FLUOR GDNCE DX W/CELL WASHG SPX AL BRONCHOSCOPY W/CPTR-ASST IMAGE-GUIDED NAVIGATION AL BRNCHSC W/BRNCL ALVEOLAR LAVAGE AL BRNCHSC EBUS GUIDED SAMPL 3/> NODE STATION/STRUX AL BRONCHOSCOPY W/TRANSBRONCHIAL LUNG BX 1 LOBE AL BRONCHOSCOPY NEEDLE BX TRACHEA MAIN STEM&/BRON BRONCHOSCOPY [...] Date Type Department Jass Vasquez MD [address] Ortho[facility] [address] [place] [address] BRONCHOSCOPY DIAGNOSTIC WITH/ WITHOUT CE LL WASHING - FLEXIBLE 05/09/2021 Surgery Operating Room: [facility], [address] [place] [address] Surgery Details Trauma Case? Date/Time [...] performed on 05-06-21. Jass Vasquez MD Pager [phone] * Brea Shankar MD - 05/06/2021 4:00 PM CDT Subjective: History of Present Illness Alea Coyne Jr. is a 51 y.o. male with PMH of HLD, COPD, CAD, reported rec ent diagnosis of CHF, history of seizures (not on AEDs), ?history of pancreatic cancer in 2013, and current tobacco abuse referred for a PET avid RUL mass. Patient was referred from Pulmonary in [place], [place] for a PET avid RUL mas [...] visit, discussed case with Dr Valerie Shankar, [facility] fellow and concur with our fellow's [...] of 11:15am. This will be at the [facility] at [address] [place] [address]. - Nothing to eat or drink after [...] check in at admitting, just inside the [facility] entrance , located at [address] [place] [address], two and a half (2 1/2 ) hours before your procedure time. There is a parking garage (P3) located acros s from the entrance. - you will need a parts driver to and from the procedure. Only [...] or holidays: Call and request for the Director Hospice Operations to be paged. - To cancel, change, or schedule a clinic appointment: Call our Pulmonary [place] at Pulmonary Clinic Nurse Coordinator-Tenisha Burleson RN - Office: [phone] fa x: [phone] documented in this encounter Plan of Treatment [...] SPECIMENS (05/09/2021 1:30 PM CDT) PATHOLOGY [facility] [employer] [facility] [email or web address] Department of Pathology and Laboratory Medicine [address] [place] [address] Surgical Pathology Office: [phone] SURGICAL PATHOLOGY REPORT NAME: ALEA COYNE SURG PATH #: [id number] MR #: [id number] SPECIMEN CLASS: SR BILLING #: [id number] ALT ID #: LOCATION: [facility] DATE OF [...] Cell types evaluated: Tumor cells FDA status: Finish Opener ############################## ############################## ############ Final Diagnosis: A. "RUL mass", biopsy: Squamous cell carcinoma, keratinizing. See comment. Comment: Immunohistochemical stains show the tumor cells are positive for p40, and negative for DASIA-3 and TTF-1 supporting the above diagnosis. Additional stain for PD-L1 will be performed and reported in an addendum. Pursuant to the Carpentry Supervisor Program at the [facility] Pathology Department, selected slides from this [...] of Pathology and Laboratory Medicine of the [facility] ([employer]) in compliance with [...] of Pathology and Laboratory Medicine of the [facility]. It has not been cleared or approved by the FDA. The FDA has determined that such clearance or approval is not necessary. Specimen Other (Specify) Performing Organization Address City/State/ZIP Code P hope Number [facility] [address] [place] [address] * CYTOLOGY FNA LYMPH NODE (05/09/2021 1:15 PM CDT) Cytology [facility] [email or web address] Department of Pathology and Laboratory Medicine [address] [place] [address] Surgical Pathology Office: [phone] CYTOLOGY REPORT NAME: ALEA COYNE SURG PATH #: [id number] MR #: [id number] ALT ID #: BILLING #: [id number] LOCATION: [facility] DATE OF PROCEDURE: 05/09/2021 AGE: [...] determination of adequacy was performed by the bilingual patient support caseworker, JESSICA, on Diff-Quik stained slide(s). Passes one [...] Number [facility] [address] [place] [address] * CT CHEST WO CONTRAST (05/09/2021 12:30 [...] Procedure Date: 05/09/2021 RESULTS 11:57 AM CSN: [id number] Date of : 1970 Gender: Male Attending Physician: Jass Vasquez MD Procedure: Bronchoscopy Indications: Right upper lobe mass Providers: Jass Vasquez MD (Doctor), Brea Shankar MD (Fellow), Akbar Valderrama RN (Nurse), Bryan Munroe (Frit Coater) Referring Physician: Rebecca Rea Medications: General Anesthesia [...] aspiration was also performed using an Olympus [employer]moon.comi[employer]ot 21 gauge needle in the right superior [...]
--- OUTSIDE RECORDS SUMMARY | 2021-06-05 11:09 | XMS REPORT | Encounter Summary ---
Author Author [facility] Organization [facility] Address Unknown Phone Unavailable Care Team Providers Care Ocean Import Representative Name Role Phone No Pcp, Na PCP Unavailable Reason for Visit * Auth/Cert Referred By Contact Referred To Contact Status Reason Specialty Diagnoses / Procedures Diagnoses Mass of upper lobe of right lung Mass of upper lobe of right lung [R91.8] P rocedures GA BRNCHSC INCL FLUOR GDNCE DX W/CELL WASHG SPX GA BRONCHOSCOPY W/CPTR-ASST IMAGE-GUIDED NAVIGATION GA BRNCHSC W/BRNCL ALVEOLAR LAVAGE GA BRNCHSC EBUS GUIDED SAMPL 3/> NODE STATION/STRUX GA BRONCHOSCOPY W/TRANSBRONCHIAL LUNG BX 1 LOBE GA BRONCHOSCOPY NEEDLE BX TRACHEA MAIN STEM&/BRON BRONCHOSCOPY [...] Type Department Ynes Norris MD [address] [place] [address] [phone] 05/09/2021 Anesthesia Operating Room: [facility] [address] [facility] [address] [place] [address] Anesthesia Record Responsible Anesthesiologist Anesthesia [...] mass. Patient was referred from Pulmonary in [place], [place] for a PET avid RUL [...] Blood Consent: consented Plan discussed with: anesthesiologist, TELEPHONE CLERK TELEGRAPH OFFICE and surgeon/proceduralist. documented in this encounter Plan [...]
--- OUTSIDE RECORDS SUMMARY | 2021-06-05 11:09 | XMS REPORT | Encounter Summary ---
Author Author [facility] Organization [facility] Address Unknown Phone Unavailable Care Team Providers Care Drawer In Stitch Bonding Machine Name Role Phone No Pcp, Na PCP Unavailable Encounter Details Care Team Description Date Type Department 05/13/2021 Hospital Imaging: [facility], Encounter [facility] [address], [address] [place] [address] Social History Date Tobacco Use [...]
--- OUTSIDE RECORDS SUMMARY | 2021-06-05 11:09 | XMS REPORT | Encounter Summary ---
Author Author [facility] Organization [facility] Address Unknown Phone Unavailable Care Team Providers Care Eye Specialist Name Role Phone No Pcp, Na PCP Unavailable Reason for Referral * Consult, Test & Treat (Urgent) Referred By Contact Referred To Contact Status Reason Specialty Diagnoses / Procedures Jass Vasquez MD [address] [facility] [address] [address] Cc Radiation Therapy [address] [facility] [place] [address] Closed Specialty Services Radiation Diagnoses Required Therapy [...] Diagnoses / Procedures Jass Vasquez MD [address] [facility] [address] [place] [address] Cc - Ww Cl Exm/Proc Rm [address] [place], [place] Authorized Specialty Services Oncology Diagnoses Required [...] Date Type Department Tiffany Shankar MD [address] [place] [address] Results 05/19/2021 Telephone Pulmonology: [facility], [facility] [address] [place] [address]. [address], [address] [address] Social History Date Tobacco Use [...] Notes * Telephone Encounter - Kourtney Chan MA,CCC-BACKGROUND CHECK COORDINATOR - 05/28/2021 3:58 PM CDT Cytology and pathology reports faxed to [facility]. Routing to Tenisha Burleson RN T * Telephone Encounter - Tenisha Burleson RN - 05/28/2021 9:29 AM CDT Spoke with Allen with [facility]. She is requesting to have biopsy r esults from patient's 05/09/21 bronchoscopy refaxed to them due to an issue with their fax machine. Will request to have cytology and pathology results faxed to [facility] at [phone]. Tenisha Burleson RN * Telephone Encounter - Tenisha Burleson RN - 05/27/2021 4:20 PM CDT Returned phone call to Allen with [facility] and LVM. Tenisha nelson RN * Telephone Encounter - Kourtney Chan MA,CCC-BACKGROUND CHECK COORDINATOR - 05/20/2021 4:25 PM CDT Bronch report and results, office note and telephone encounter faxed to [facility]. Routing to Tenisha Burleson RN T * Telephone Encounter - Tenisha Burleson RN - 05/20/2021 3:43 PM CDT Images from the original note were not included. Spoke with patient and discussed follow up plan. Patient stated he wanted to fo llow with oncology in [place], [place]. He is having difficulty with transportatio and feels he is unable to find reliable transportation to follow up at . He requested to have information sent to Dr Deni Beckman in [place] and to his p ulmonologist. Information already faxed to Rebecca FREEDMAN with [facility] on 05/16. He has an appt with pulmonology on 05/28 and his PCP on 05/29. Will request to have OVN, bronch report and results faxed to Dr Beckman at ([facility]). Referral to oncology cancelled and MRI head [...] patient again tomorrow. Neha ent lives in [place] and will likely want to have MRI completed closer to [facility]. documented in this encounter Plan of Treatment [...]
--- OUTSIDE RECORDS SUMMARY | 2021-06-05 11:09 | XMS REPORT | Clinical Summary ---
Author Author [facility] Address Unknown Phone Unavailable Care Team Providers Care Financial Assistance Specialist Name Role Phone No Pcp, Na PCP Unavailable Source Comments Some departments are not documenting in the electronic medical record. If you d o not see the information that you expected, contact Release of Information in [facility] Authernative Information Management department at [phone] for further assistan ce in locating additional records.[facility] Allergies Comments Active Allergy Reactions Severity [...] coronavirus 05/06/2021 Nurse Only Urgent Care Dimas Truijllo MD Quijano, Franklin R, MD Mass of [...] Dx) 04/21/2021 Orders Only Radiology Margot Mendieta, research worker encyclopedia 04/17/2021 Telephone Radiology 03/25/2021 Hospital Radiology Encounter from Last 3 Months Surgical History Surgery Date Site/Laterality Comments SHOULDER SURGERY 11/22/2017 Right HX KNEE SURGERY Bilateral HX CHOLECYSTECTOMY 08/30/2015 - 08/29/2016 HERNIA REPAIR TESTICLE SURGERY BRONCHOSCOPY 05/09/2021 Bronchus/N/A BRONCHOSCOPY DI AGNOSTIC WITH/ WITHOUT CELL WASHING - FLEXIBLE performed by Blanca Vasquez MD at [facility] OR BRONCHOSCOPY 05/09/2021 Bronchus/N/A BRONCHOSCOPY WI TH IMAGE - GUIDED NAVIGATION - FLEXIBLE performed by Jass Vasquez MD at [facility] OR BRONCHOSCOPY 05/09/2021 Bronchus/N/A BRONCHOSCOPY WI TH BRONCHIAL ALVEOLAR LAVAGE - FLEXIBLE performed by Jass Vasquez MD at [facility] OR BRONCHOSCOPY 05/09/2021 Bronchus/N/A BRONCHOSCOPY WI TH ENDOBRONCHIAL ULTRASOUND GUIDED TRANSTRACHEAL/ TRANSBRONCHIAL SAMPLING - 3 OR MORE MEDIASTINAL/ HILAR LYMPH NODE STATIONS/ STRUCTURE - FLEXIBLE performed by Blanca Vasquez MD at [facility] OR BRONCHOSCOPY 05/09/2021 Bronchus/N/A BRONCHOSCOPY WI TH TRANSBRONCHIAL LUNG BIOPSY - FLEXIBLE - SINGLE LOBE performed by Jass Martini MD at [facility] OR BRONCHOSCOPY 05/09/2021 Bronchus/N/A BRONCHOSCOPY WI TH TRANSBRONCHIAL NEEDLE ASPIRATION AND BIOPSY TRACHEA/ MAIN STEM/ LOBAR BR ONCHUS - FLEXIBLE performed by Jass Vasquez MD at [facility] OR Medical History Medical History Date [...] SPECIMENS (05/09/2021 1:30 PM CDT) PATHOLOGY [facility] [employer] [facility] [email or web address] Department of Pathology and Laboratory Medicine [address] [place] [address] Surgical Pathology Office: [phone] SURGICAL PATHOLOGY REPORT NAME: ALEA COYNE SURG PATH #: [id number] MR #: [id number] SPECIMEN CLASS: SR BILLING #: [id number] ALT ID #: LOCATION: [facility] DATE OF [...] Cell types evaluated: Tumor cells FDA status: Division Controller ############################## ############################## ############ Final Diagnosis: A. "RUL mass", biopsy: Squamous cell carcinoma, keratinizing. See comment. Comment: Immunohistochemical stains show the tumor cells are positive for p40, and negative for DASIA-3 and TTF-1 supporting the above diagnosis. Additional stain for PD-L1 will be performed and reported in an addendum. Pursuant to the Greenhouse Specialist Program at the [facility] Pathology Department, selected slides from [...] of Pathology and Laboratory Medicine of the [facility] ([employer]) in compliance with CLIA'88 regulations. [...] of Pathology and Laboratory Medicine of the [facility]. It has not been cleared or approved by the FDA. The FDA has determined that such clearance or approval is not necessary. Specimen Other (Specify) Performing Organization Address City/State/ZIP Code P hope Number [facility] [address] [place] [address] * CYTOLOGY FNA LYMPH NODE (05/09/2021 1:15 PM CDT) Cytology [facility] [email or web address] Department of Pathology and Laboratory Medicine [address] [place] [address] Surgical Pathology Office: [phone] CYTOLOGY REPORT NAME: ALEA COYNE SURG PATH #: [id number] MR #: [id number] ALT ID #: BILLING #: [id number] LOCATION: [facility] DATE OF PROCEDURE: 05/09/2021 AGE: [...] determination of adequacy was performed by the learning and development director, JESSICA, on Diff-Quik stained slide(s). Passes one [...] Code P hope Number MAIN LAB [address] [place] [address] * CT CHEST WO CONTRAST (05/09/2021 12:30 [...] Procedure Date: 05/09/2021 RESULTS 11:57 AM CSN: [id number] Date of : 1970 Gender: Male Attending Physician: Jass Vasquez MD Procedure: Bronchoscopy Indications: Right upper lobe mass Providers: Jass Vasquez MD (Doctor), Brea Shankar MD (Fellow), Akbar Valderrama RN (Nurse), Bryan Munroe (Customer Contact Sales Associate) Referring Physician: Rebecca Rea Medications: General Anesthesia [...] P hope Number [facility] MAIN [facility] [address] [place] [id number] * BASIC METABOLIC PANEL (05/06/2021 5:29 PM [...] Non >60 >60 mL/min MAIN LAB Comment: [place] The eGFR is not validated f or use in drug dosing adjustments. Continue to use estimated creatinine clearance per dosing reference text. Please contact the Clinical Pharmacist for questions. eGFR >60 >60 mL/min [facility]3] LAB [place] Comment: The eGFR is not validated for use in drug dosing adjustments. Continue to use estimated creatinine clearance per dosing reference text. Please contact the Clinical Pharmacist for questions. Specimen Blood Performing Organization Address City/[facility] P hope Number [facility] MAIN LAB [address] [place] [address] * COVID-19 (SARS-COV-2) PCR (05/06/2021 5:13 PM CDT) COVID-19 FLOCKED SWAB [facility]3] LAB (SARS-CoV-2) NASOPHARYNGEAL PCR Source COVID-19 NOT DETECTED DN-NOT DETECTED [facility]3] LAB (SARS-CoV-2) Comment: PCR This assay is [...] Performance characteristics have been verified by the [facility] Clinical Laboratories. Fact sheet for providers: https://www.fda.gov/media/4218 67/download Fact sheet for patients: https://www.fda.gov/media/1412 81/download Specimen Flocked Swab - Nasopharyngeal Performing Organization Address City/State/ZIP Code P hope Number [facility] MAIN LAB [address] [place] [address] * NM PET/CT EXTERNAL IMAGING (03/25/2021 12:00 AM CDT) Specimen Narrative Performed At This order has been auto finalized and does not contain a result. from Last 3 Months Insurance Type Payer Benefit Subscriber ID Effective Phone Address Plan / Dates Group Medicaid [facility] MEDICA[facility] [id number] 2017-P [place] [employer] [place] [place] [phone] Advance Directives Patient Clothing Pattern Preparer Explanation Type Date Recorded Advance 08/02/2018 12:00 PM Directive/DPOA Date Inactivated Comments Code Status Date Activated 08/05/2018 2:59 PM Full Code 08/02/2018 2:31 PM Provider has discussed Code Status No, discussion no t w/Patient or Family? necessary based on Dx
--- OUTSIDE RECORDS SUMMARY | 2021-06-05 11:10 | XMS REPORT | Encounter Summary ---
Author Author [facility] Organization [facility] Address Unknown Phone Unavailable Care Team Providers Care Radiology Services Manager Name Role Phone No Pcp, Na PCP Unavailable Reason for Visit * Reason Comments Abnormal Lung Imaging * Consult, Test & Treat (Routine) Referred By Contact Referred To Contact Status Reason Specialty Diagnoses / Procedures Rebecca Rea, CLINICAL SOCIAL WORK THERAPIST [address] [place] [address] New Request Pulmonology Diagnoses Abnormal findings on diagnostic imaging of lung Encounter Details Care Team Description Date Type Department Dimas Trujillo MD [address] Ortho/Med Pavilion Lvl [address] [place] [id number] Jass Vasquez MD [address] Ortho[facility]Med Pavilion Lvl [address] [place] [address] [phone] Mass of upper lobe of right lung (Primar y Dx); Tobacco abuse; Chronic obstructive pulmonary disease, unspecified COPD type (HCC) 05/06/2021 Office Visit Pulmonology: Palmer R[facility], Medical Pavilion [address], [address] [address] Social History Date Tobacco Use [...] 11:15am. This will be at the Main [place] at [address] [place] [address]. - Nothing to eat or drink after [...] in at admitting, just inside the main [facility] entrance , located at [address] [place] [address], two and a half (2 1/2 ) hours before your procedure time. There is a parking garage (P3) located acros s from the entrance. - you will need a fire truck driver to and from the procedure. [...] after business hours, weekends, or holidays: Call [phone] and request for the Operations Scheduler to be paged. - To cancel, change, or schedule a clinic appointment: Call our Pulmonary [place] at Pulmonary Clinic Nurse Coordinator-Tenisha Burleson RN - Office: [phone] fa x: [phone] documented in this encounter Progress Notes * [...] mass. Patient was referred from Pulmonary in [place], [place] for a PET avid RUL mas [...] visit, discussed case with Dr Valerie Shankar, [facility] fellow and concur with our fellow's [...] 11:15am. This will be at the Main [place] at [address] [place] [address]. - Nothing to eat or drink after [...] the main hospital entrance , located at [address] [place] [address], two and a half (2 1/2 ) hours before your procedure time. There is a parking garage (P3) located acros s from the entrance. - you will need a fire truck driver to and from the procedure. [...] after business hours, weekends, or holidays: Call [phone] and request for the Operations Scheduler to be paged. - To cancel, change, or schedule a clinic appointment: Call our Pulmonary [place] at Pulmonary Clinic Nurse Coordinator-Tenisha Burleson RN - Office: [phone] fa x: [phone] documented in this encounter Miscellaneous Notes * [...]
--- OUTSIDE RECORDS SUMMARY | 2021-06-05 11:10 | XMS REPORT | Encounter Summary ---
Author Author [facility] Organization [facility] Address Unknown Phone Unavailable Care Team Providers Care Food Preparation Worker Name Role Phone No Pcp, Na PCP Unavailable Reason for Visit * Auth/Cert Referred By Contact Referred To Contact Status Reason Specialty Diagnoses / Procedures Diagnoses Mass of upper lobe of right lung Mass of upper lobe of right lung [R91.8] P rocedures NJ BRNCHSC INCL FLUOR GDNCE DX W/CELL WASHG SPX [place] BRONCHOSCOPY W/CPTR-ASST IMAGE-GUIDED NAVIGATION NJ BRNCHSC W/BRNCL ALVEOLAR LAVAGE [place] BRNCHSC EBUS GUIDED SAMPL 3/> NODE STATION/STRUX [place] BRONCHOSCOPY W/TRANSBRONCHIAL LUNG BX 1 LOBE [place] BRONCHOSCOPY NEEDLE BX TRACHEA MAIN STEM&/BRON BRONCHOSCOPY [...] Date Type Department Jass Vasquez MD [address] Ortho/Med Pavilion Lvl [address] [place] [address] Mass of upper lobe of right lung 05/09/2021 Hospital Operating Room: Bailey arnett [facility] [address] [facility] [address] [place] [address] Social History Date Tobacco Use [...] performed on 05-06-21. Jass Vasquez MD Pager [phone] * Brea Shankar MD - 05/06/2021 4:00 PM CDT Subjective: History of Present Illness Alea Coyne Jr. is a 51 y.o. male with PMH of HLD, COPD, CAD, reported rec ent diagnosis of CHF, history of seizures (not on AEDs), ?history of pancreatic cancer in 2013, and current tobacco abuse referred for a PET avid RUL mass. Patient was referred from Pulmonary in [place], [place] for a PET avid RUL mas [...] PET avid LAD Assessment and Plan: Alea Coyen Jr. is a 51 y.o. male with [...] visit, discussed case with Dr Valerie Shankar, [facility] fellow and concur with our [...] 11:15am. This will be at the Main [place] at [address] [place] [address]. - Nothing to eat or drink after [...] in at admitting, just inside the main [facility] entrance , located at [address] [place] [address], two and a half (2 1/2 ) hours before your procedure time. There is a parking garage (P3) located acros s from the entrance. - you will need a carrier driver to and from the procedure. Only [...] or holidays: Call and request for the Store Receiver to be paged. - To cancel, change, or schedule a clinic appointment: Call our Pulmonary [place] at Pulmonary Clinic Nurse Coordinator-Tenisha Burleson RN - Office: [phone] fa x: [phone] documented in this encounter Plan of Treatment [...] SPECIMENS (05/09/2021 1:30 PM CDT) PATHOLOGY [facility] [email or web address] Department of Pathology and Laboratory Medicine [address] [place] [address] Surgical Pathology Office: [phone] SURGICAL PATHOLOGY REPORT NAME: ALEA COYNE SURG PATH #: [id number] MR #: [id number] SPECIMEN CLASS: SR BILLING #: [id number] ALT ID #: LOCATION: [facility] DATE OF [...] Cell types evaluated: Tumor cells FDA status: Test Borer Helper ############################## ############################## ############ Final Diagnosis: A. "RUL mass", biopsy: Squamous cell carcinoma, keratinizing. See comment. Comment: Immunohistochemical stains show the tumor cells are positive for p40, and negative for DASIA-3 and TTF-1 supporting the above diagnosis. Additional stain for PD-L1 will be performed and reported in an addendum. Pursuant to the Open Winder Program at the [facility] Pathology Department, selected slides from this [...] of Pathology and Laboratory Medicine of the [facility] ([employer] [facility]) in compliance with CLIA'88 regulations. [...] of Pathology and Laboratory Medicine of the [facility]. It has not been cleared or approved by the FDA. The FDA has determined that such clearance or approval is not necessary. Specimen Other (Specify) Performing Organization Address City/State/ZIP Code P hope Number [facility] [address] [place] [address] * CYTOLOGY FNA LYMPH NODE (05/09/2021 1:15 PM CDT) Cytology [facility] [email or web address] Department of Pathology and Laboratory Medicine [address] [place] [address] Surgical Pathology Office: [phone] CYTOLOGY REPORT NAME: ALEA COYNE SURG PATH #: [id number] MR #: [id number] ALT ID #: BILLING #: [id number] LOCATION: [facility] DATE OF PROCEDURE: 05/09/2021 AGE: [...] determination of adequacy was performed by the new accounts representative, JESSICA, on Diff-Quik stained slide(s). Passes one [...] Code P hope Number MAIN LAB [address] [place] [address] * CT CHEST WO CONTRAST (05/09/2021 12:30 [...] Report Procedure Date: 05/09/2021 RESULTS 11:57 AM [facility]: [id number] Date of : 1970 Gender: Male Attending Physician: Jass Vasquez MD Procedure: Bronchoscopy Indications: Right upper lobe mass Providers: Jass Vasquez MD (Doctor), Brea Shankar MD (Fellow), Akbar Valderrama RN (Nurse), Bryan Munroe (Binder Lockstitch) Referring Physician: Rebecca Rea Medications: General Anesthesia [...] aspiration was also performed using an Olympus Confluence Life SciencesiShot 21 gauge needle in the right superior [...]
--- OUTSIDE RECORDS SUMMARY | 2021-06-05 11:10 | XMS REPORT | Encounter Summary ---
Author Author [facility] Organization [facility] Address Unknown Phone Unavailable Care Team Providers Care Hat Conditioner Name Role Phone No Pcp, Na PCP Unavailable Encounter Details Care Team Description Date Type Department Jass Vasquez MD [address] Ortho/Med Pavilion [address]vl [address] [place] [address] Mass of upper lobe of right lung (Primar y Dx); Encounter for screening laboratory testing for COVID-19 virus in asymptomatic patient 05/06/2021 Prep for Case Pulmonology: Main [place] [facility], Medical Pavilion [address] [address] Social History Date Tobacco Use [...] >60 >60 mL/min [facility] MAIN [facility] Comment: [place] The eGFR is not validated f or use in drug dosing adjustments. Continue to use estimated creatinine clearance per dosing reference text. Please contact the Clinical Pharmacist for questions. eGFR >60 >60 mL/min [facility] MAIN LAB [place] Comment: The eGFR is not validated for use in drug dosing adjustments. Continue to use estimated creatinine clearance per dosing reference text. Please contact the Clinical Pharmacist for questions. Specimen Blood Performing Organization Address City/State/ZIP Code P hope Number [facility] MAIN LAB [address] [place] [address] * CBC (05/06/2021 5:29 PM CDT) Pathologist [facility] White Blood 8.3 4.5 - 11.0 K/UL [...] P hope Number [facility] MAIN LAB [address] [place] [address] * COVID-19 (SARS-COV-2) PCR (05/06/2021 5:13 PM [...] Performance characteristics have been verified by the [facility] Clinical Laboratories. Fact sheet for providers: https://www.fda.gov/media/1378 78/download Fact sheet for patients: https://www.fda.gov/media/1044 81/download Specimen Flocked Swab - Nasopharyngeal Performing Organization Address City/State/ZIP Code P hope Number MAIN LAB [address] [place] [address] documented in this encounter Visit Diagnoses Diagnosis [...]
--- OUTSIDE RECORDS SUMMARY | 2021-06-05 11:10 | XMS REPORT | Encounter Summary ---
Author Author [facility] Organization [facility] Address Unknown Phone Unavailable Care Team Providers Care Director [employer] Name Role Phone No Pcp, Na PCP Unavailable Encounter Details Care Team Description Date Type Department Jass Vasquez MD [address] Ortho/Med Pavilion [address] [place] [address] 05/06/2021 Hospital Laboratory: Main [place] mp[place], Encounter Medical Pavilion [address] [place] [address] Social History Date Tobacco Use Types Packs/Day [...] Organization Address City/State/ZIP Code P hope Number [facility] [address] [place] [address] * BASIC METABOLIC PANEL (05/06/2021 5:29 PM CDT) Sodium 141 137 - 147 MMOL/L [facility] MAIN LAB Potassium 5.1 3.5 - 5.1 MMOL/L [facility]IN [facility] Chloride 105 98 - 110 MMOL/L [facility] CO2 28 21 - 30 MMOL/L [facility] MAIN LAB Anion Gap 8 3 - 12 [facility] Glucose 91 70 - 100 MG/DL [facility] MAIN [facility] Blood Urea 12 7 - 25 MG/DL [facility] Nitrogen Creatinine 1.23 0.4 - 1.24 MG/DL [facility] Calcium 9.9 8.5 - 10.6 MG/DL MAIN LAB eGFR Non >60 >60 mL/min [facility] Comment: Vietnamese The eGFR is not validated f or use in drug dosing adjustments. Continue to use estimated creatinine clearance per dosing reference text. Please contact the Clinical Pharmacist for questions. eGFR >60 >60 mL/min [facility] Vietnamese Comment: The eGFR is not validated for use in drug dosing adjustments. Continue to use estimated creatinine clearance per dosing reference text. Please contact the Clinical Pharmacist for questions. Specimen Blood Performing Organization Address City/[facility] P hope Number [facility] [address] [place] [address] * COVID-19 (SARS-COV-2) PCR (05/06/2021 5:13 PM CDT) Pathologist [facility] COVID-19 FLOCKED SWAB [facility] (SARS-CoV-2) NASOPHARYNGEAL PCR Source COVID-19 NOT DETECTED DN-NOT DETECTED [facility] (SARS-CoV-2) Comment: PCR This [...] Hospital Clinical Laboratories. Fact sheet for providers: https://www.fda.gov/media/1102 78/download Fact sheet for patients: https://www.fda.gov/media/2614 81/download Specimen Flocked Swab - Nasopharyngeal Performing Organization Address City/State/ZIP Code P hope Number MAIN LAB [address] [place] [address] documented in this encounter Visit Diagnoses Diagnosis [...]
[2021-06-05 11:25] VITALS: BP 100/70
[2021-06-05] MEDS ORDERED: CLINDAMYCIN 600 MG/50 ML IVPB 50 ML IV ONE (11:32)
[2021-06-05] MEDS: CLINDAMYCIN 600 MG/50 ML IVPB 50 ML IV ONE ×2 (11:55→13:14)
[2021-06-05] MEDS ORDERED: HEParin (CENTRAL IV FLUSH) 500 UNIT/5 ML SYR ONE (12:24)
[2021-06-05] MEDS ORDERED: LIDOCAINE/EPI 1%-1:100,000 (XYLOCAINE) 20ML ONE (12:24)
[2021-06-05] MEDS ORDERED: 0.9% SODIUM CHLORIDE PF INJ 20 ML VIAL ONE (12:24)
[2021-06-05] MEDS ORDERED: LACTATED RINGERS 1,000 ML IV PRN (12:30)
[2021-06-05] MEDS ORDERED: MIDAZOLAM 2 MG/2 ML (VERSED) VIAL ONE (13:00)
[2021-06-05] MEDS ORDERED: PROPOFOL INJECTION 50 ML IV ONE (13:00)
[2021-06-05 14:03] VITALS: BP 109/60
[2021-06-05 14:10] VITALS: BP 103/65
--- NOTE | 2021-06-05 14:10 | Discharge Inst-Simple/Standard ---
Discharge Inst-Standard Patient Instructions/Follow Up Plan of Care/Instructions/FU: 2 weeks Monalisa Activity as Tolerated: No Discharge Diet: Regular Diet Other Inst to Patient Follow up Appt: Make appointment for 2 week. Instructions: No lifting greater than 10 pounds. No strenuous activity. May shower in 24 hours, no tub bath or soaking. Use incentive spirometer at home as directed. No Smoking Skin/Wound Care: You have special glue over your incision that will fall off on it's own. Ice pack on 15 min and off 30 min. Repeat for first 48 hours this will reduce swelling and discomfort. Symptoms to Report: Appetite Changes, Extremity Discoloration, Numbness/Tingling, Swelling Increased, Bleeding Excessive, Eyesight Changes, Pain Increased, Urine Color Change, Constipation(Persistent), Fever over 101 degree F, Pain/Pressure in chest, Urinating Difficulty, Cough Up/Vomit Blood, Heart Beat Irreg/Pounding, Pain/Pressure in jaw, Vaginal Bleeding Increase, Cramps in feet or legs, Lightheadedness, Pain/Pressure in shoulder, Diarrhea(Persistent), Memory Changes Suddenly, Questions/Concerns, Weight gain consecutive days, Dizziness/Fainting, Nausea/Vomiting, Shortness of Breath, Weight gain over 2 pounds If questions or concerns contact your physician Or seek help at emergency department. ISAI JIMENEZ DO Jun 05, 2021 14:10
--- NOTE | 2021-06-05 14:12 | Progress Note-Post Operative ---
Post-Operative Progess Note Surgeon (s)/Bark Skinner (s) Surgeon ISAI JIMENEZ DO Bark Skinner: na Pre-Operative Diagnosis lung cancer Post-Operative Diagnosis same Procedure & Operative Findings Date of Procedure 06/05/21 Procedure Performed/Findings PROCEDURE: Left internal jugular port placement using ultrasound guidance. COMPLICATIONS: None. INDICATIONS: The patient is a 51 year old male with lung cancer. Patient understands the risks and benefits of port placement and wished to proceed with the procedure. Consent was signed on the chart. PROCEDURE: The patient was taken to the operating suite, was prepped and draped in the sterile fashion. A surgical pause was performed. Ultrasound was used to locate the internal jugular vein. Once located anesthetic was infiltrated above it. Using micro-access kit, the right internal vein was accessed. Dark nonpulsatile blood was withdrawn. The wire was inserted. Fluoroscopy assured proper placement. The needle was removed. The micro-access dilator was advanced over the wire and the wire was removed. The regular wire was inserted and fluoroscopy assured proper placement. The wire was then secured. Local anesthetic was used to anesthetize from the neck for tunneling down to the right chest and for pocket creation. A 15 blade scalpel was used to make an incision over the left chest. Cautery was used to dissect down to the pectoral fascia. A pocket was created with blunt dissection. The dilator sheath was then advanced over the wire under fluoroscopy and the dilator and wire were removed. The Groshong catheter was inserted through the sheath and the sheath was then removed. The Groshong wire was removed. The catheter was then tunneled to the right chest pocket. Fluoroscopy was used to cut to length and this was then attached to the port which was then placed within the pocket. The port was then accessed without difficulty. It was then flushed with saline and then heparin. The subcutaneous tissues were then reapproximated using 3-0 Vicryl. The areas were then washed and dried. Skin Affix was placed over incision. The insertion point of the neck Skin Affix was placed over the incision. The patient tolerated the procedure well without complication and was taken to recovery room in stable condition. Chest x-ray is pending. Anesthesia Type mac c local Estimated Blood Loss Estimated blood loss (mL): minimal Specimens/Packing Specimens Removed ISAI Mcdonald DO Jun 05, 2021 14:12
[2021-06-05] MEDS ORDERED: morphine INJ 10 MG/ML 1ML (SYR OR VIAL) IVP ONE (14:15)
--- NOTE | 2021-06-05 14:15 | Diagnostic Imaging Report ---
INDICATION: Fluoroscopy for Groshong catheter placement. Fluoroscopy was provided in the OR during Groshong catheter placement. 21 seconds of fluoroscopic time was utilized. Two images were obtained. There is straightening of a left-sided Groshong catheter. IMPRESSION: Fluoroscopy during Groshong catheter placement. Dictated by: Dictated on workstation # [id number]
[2021-06-05 14:20] VITALS: BP 101/64
--- NOTE | 2021-06-05 14:21 | Diagnostic Imaging Report ---
Indication: Port placement. TIME OF EXAM: 2:21 PM Correlation is made with prior chest from 06/02/2021. There has been placement of a left IJ port catheter which has the tip in good position overlying SVC right atrial junction. No pneumothorax is seen. Right upper lobe opacity with central lucency is again noted. There is no effusion. IMPRESSION: Port placement. No pneumothorax is identified. Dictated by: Dictated on workstation # [id number]
[2021-06-05 14:25] VITALS: BP 103/61
[2021-06-05 14:30] VITALS: BP_SYST 108; BP_SYST 91; BP_DIAS 59; BP_DIAS 72
--- NOTE | 2021-06-05 15:39 | Anesthesia-General Post-Op ---
MAC Patient Condition Mental Status/LOC: Same as Preop Cardiovascular: Satisfactory Nausea/Vomiting: Absent Respiratory: Satisfactory Pain: Controlled Complications: Absent Post Op Complications Complications None Follow Up Care/Instructions Patient Instructions None needed. Anesthesiology Discharge Order Discharge Order Patient is doing well, no complaints, stable vital signs, no apparent adverse anesthesia problems. No complications reported per nursing. HEATHER BRIAN CRNA Jun 05, 2021 15:39
== END 2021-06-05 15:22 | disposition home or self-care (01) ==
LOC: SDC 11:04
PROVIDERS: ATTEND Surgery
DX: C34.11 Malignant neoplasm of upper lobe, right bronchus or lung (principal); K21.9 Gastro-esophageal reflux disease without esophagitis; J44.9 Chronic obstructive pulmonary disease, unspecified; Z87.891 Personal history of nicotine dependence; Z79.899 Other long term (current) drug therapy
CPT/HCPCS: 36561; 71045; 76000; 87081; C1788

== ENCOUNTER 2021-06-15 12:44 | Emergency (ER) | payer MEDICAID ==
[~2021-06-15] VITALS: Ht 195.5 cm; Wt 96.0 kg
--- OUTSIDE RECORDS SUMMARY | 2021-06-15 12:49 | XMS REPORT | Clinical Summary ---
Author Author [facility] Organization [facility] Address Unknown Phone Unavailable Care Team Providers Care Pulvi Mixer Operator Name Role Phone No Pcp, Na PCP Unavailable Source Comments Some departments are not documenting in the electronic medical record. If you d o not see the information that you expected, contact Release of Information in [facility] [employer] Information Management department at [phone] for further assistan ce in locating additional records.[facility] Allergies Comments Active Allergy Reactions Severity Noted [...] Dx) 04/21/2021 Orders Only Radiology Margot Mendieta, tabulating supervisor 04/17/2021 Telephone Radiology 03/25/2021 Hospital Radiology Encounter from Last 3 Months Surgical History Surgery Date Site/Laterality Comments SHOULDER SURGERY 11/22/2017 Right HX KNEE SURGERY Bilateral HX CHOLECYSTECTOMY 08/30/2015 - 08/29/2016 HERNIA REPAIR TESTICLE SURGERY BRONCHOSCOPY 05/09/2021 Bronchus/N/A BRONCHOSCOPY DI AGNOSTIC WITH/ WITHOUT CELL WASHING - FLEXIBLE performed by Blanca Vasquez MD at [facility] OR BRONCHOSCOPY 05/09/2021 Bronchus/N/A BRONCHOSCOPY WI TH IMAGE - GUIDED NAVIGATION - FLEXIBLE performed by Jass Vasquez MD at [facility] OR BRONCHOSCOPY 05/09/2021 Bronchus/N/A BRONCHOSCOPY WI TH BRONCHIAL ALVEOLAR LAVAGE - FLEXIBLE performed by Jass Vasquez MD at [facility] OR BRONCHOSCOPY 05/09/2021 Bronchus/N/A BRONCHOSCOPY WI TH ENDOBRONCHIAL ULTRASOUND GUIDED TRANSTRACHEAL/ TRANSBRONCHIAL SAMPLING - 3 OR MORE MEDIASTINAL/ HILAR LYMPH NODE STATIONS/ STRUCTURE - FLEXIBLE performed by Blanca Vasquez MD at [facility] OR BRONCHOSCOPY 05/09/2021 Bronchus/N/A BRONCHOSCOPY WI TH TRANSBRONCHIAL LUNG BIOPSY - FLEXIBLE - SINGLE LOBE performed by Jass Martini MD at [facility] OR BRONCHOSCOPY 05/09/2021 Bronchus/N/A BRONCHOSCOPY WI TH TRANSBRONCHIAL NEEDLE ASPIRATION AND BIOPSY TRACHEA/ MAIN STEM/ LOBAR BR ONCHUS - FLEXIBLE performed by Jass Vasquez MD at [facility] OR Medical History Medical History [...] SPECIMENS (05/09/2021 1:30 PM CDT) PATHOLOGY [facility] [employer] [facility] [email or web address] Department of Pathology and Laboratory Medicine [address] [place] [address] Surgical Pathology Office: [phone] SURGICAL PATHOLOGY REPORT NAME: ALEA COYNEValerie SURG PATH #: [id number] MR #: [id number] SPECIMEN CLASS: SR BILLING #: [id number] ALT ID #: LOCATION: [facility] DATE OF [...] Cell types evaluated: Tumor cells FDA status: Cinder Pitman ############################## ############################## ############ Final Diagnosis: A. "RUL mass", biopsy: Squamous cell carcinoma, keratinizing. See comment. Comment: Immunohistochemical stains show the tumor cells are positive for p40, and negative for DASIA-3 and TTF-1 supporting the above diagnosis. Additional stain for PD-L1 will be performed and reported in an addendum. Pursuant to the Mud Jack Nozzle Worker Program at the [facility] Pathology Department, selected slides from this case [...] Pathology and Laboratory Medicine of the [facility] ([place] [facility]) in compliance with CLIA'88 regulations. [...] Pathology and Laboratory Medicine of the [facility]. It has not been cleared or approved by the FDA. The FDA has determined that such clearance or approval is not necessary. Specimen Other (Specify) Performing Organization Address City/State/ZIP Code P hope Number [facility] [address] [place] [address] * CYTOLOGY FNA LYMPH NODE (05/09/2021 1:15 PM CDT) Cytology [facility] [email or web address] Department of Pathology and Laboratory Medicine [address] [place] [address] Surgical Pathology Office: [phone] CYTOLOGY REPORT NAME: ALEA COYNE SURG PATH #: [id number] MR #: [id number] ALT ID #: BILLING #: [id number] LOCATION: [facility] DATE OF PROCEDURE: 05/09/2021 AGE: [...] determination of adequacy was performed by the procurement professional, JESSICA, on Diff-Quik stained slide(s). Passes one [...] P hope Number [facility]IN [facility] [address] [place] [address] * CT CHEST WO CONTRAST (05/09/2021 12:30 [...] Procedure Date: 05/09/2021 RESULTS 11:57 AM CSN: [id number] Date of : 1970 Gender: Male Attending Physician: Jass Vasquez MD Procedure: Bronchoscopy Indications: Right upper lobe mass Providers: Jass Vasquez MD (Doctor), Brea Shankar MD (Fellow), Akbar Valderrama RN (Nurse), Bryan Munroe (People Manager) Referring Physician: Rebecca Rea Medications: General Anesthesia [...] 05/09/2021 11:57 AM Specimen Performing Organization Address City/[facility] P hope Number [facility] OTHER RESULTS * [...] MAIN LAB Specimen Blood Performing Organization Address [facility] Code P hope Number [facility] [address] [place] [address] * BASIC METABOLIC PANEL (05/06/2021 5:29 PM CDT) Sodium 141 137 - 147 MMOL/L MAIN LAB Potassium 5.1 3.5 - 5.1 MMOL/L [facility]IN [facility] Chloride 105 98 - 110 MMOL/L [facility] MAIN [facility] CO2 28 21 - 30 MMOL/L [facility] Anion Gap 8 3 - 12 [facility] Glucose 91 70 - 100 MG/DL [facility] MAIN [facility] Blood Urea 12 7 - 25 MG/DL [facility] Nitrogen Creatinine 1.23 0.4 - 1.24 MG/DL [facility] MAIN LAB Calcium 9.9 8.5 - 10.6 MG/DL [facility] MAIN LAB eGFR Non >60 >60 mL/min [facility] Comment: Thai The eGFR is not validated f or use in drug dosing adjustments. Continue to use estimated creatinine clearance per dosing reference text. Please contact the Clinical Pharmacist for questions. eGFR >60 >60 mL/min [facility] Thai Comment: The eGFR is not validated for use in drug dosing adjustments. Continue to use estimated creatinine clearance per dosing reference text. Please contact the Clinical Pharmacist for questions. Specimen Blood Performing Organization Address City/[facility]/ZIP Code P hope Number MAIN LAB [address] [place] [address] * COVID-19 (SARS-COV-2) PCR (05/06/2021 5:13 PM CDT) COVID-19 FLOCKED SWAB [facility] (SARS-CoV-2) NASOPHARYNGEAL PCR Source COVID-19 NOT DETECTED DN-NOT DETECTED [facility] (SARS-CoV-2) Comment: PCR This assay is [...] Performance characteristics have been verified by the [facility] Clinical Laboratories. Fact sheet for providers: https://www.fda.gov/media/7920 78/download Fact sheet for patients: https://www.fda.gov/media/9032 81/download Specimen Flocked Swab - Nasopharyngeal Performing Organization Address City/State/ZIP Code P hope Number [facility]IN [facility] [address] [place] [address] * NM PET/CT EXTERNAL IMAGING (03/25/2021 12:00 AM CDT) Specimen Narrative Performed At This order has been auto finalized and does not contain a result. from Last 3 Months Insurance Type Payer Benefit Subscriber ID Effective Phone Address Plan / Dates Group Medicaid [facility] MEDICAID [facility] [id number] 2017-P [place] [phone] Advance Directives Patient Tourist Information Assistant Explanation Type Date Recorded Advance 08/02/2018 12:00 PM Directive/DPOA Date Inactivated Comments Code Status Date Activated 08/05/2018 2:59 PM Full Code 08/02/2018 2:31 PM Provider has discussed Code Status No, discussion no t w/Patient or Family? necessary based on Dx
--- OUTSIDE RECORDS SUMMARY | 2021-06-15 12:49 | XMS REPORT | Encounter Summary ---
Author Author [facility] Organization [facility] Address Unknown Phone Unavailable Care Team Providers Care Physician Anesthesiologist Name Role Phone No Pcp, Na PCP Unavailable Encounter Details Care Team Description Date Type Department 05/13/2021 Hospital Imaging: [facility], Encounter [facility] [address], [address] [place] [address] Social History Date Tobacco Use [...]
--- OUTSIDE RECORDS SUMMARY | 2021-06-15 12:50 | XMS REPORT | Encounter Summary ---
Author Author [facility] Organization [facility] Address Unknown Phone Unavailable Care Team Providers Care Spinning And Winding Supervisor Name Role Phone No Pcp, Na PCP Unavailable Reason for Visit * Auth/Cert Referred By Contact Referred To Contact Status Reason Specialty Diagnoses / Procedures Diagnoses Mass of upper lobe of right lung Mass of upper lobe of right lung [R91.8] P rocedures MO BRNCHSC INCL FLUOR GDNCE DX W/CELL WASHG SPX MO BRONCHOSCOPY W/CPTR-ASST IMAGE-GUIDED NAVIGATION MO BRNCHSC W/BRNCL ALVEOLAR LAVAGE MO BRNCHSC EBUS GUIDED SAMPL 3/> NODE STATION/STRUX MO BRONCHOSCOPY W/TRANSBRONCHIAL LUNG BX 1 LOBE MO BRONCHOSCOPY NEEDLE BX TRACHEA MAIN STEM&/BRON BRONCHOSCOPY [...] Date Type Department Ynes Norris MD [id number] [place] [address] [phone] 05/09/2021 Anesthesia Operating Room: [facility] [address] [facility] [address] [place] [address] Anesthesia Record Responsible Anesthesiologist Anesthesia [...] mass. Patient was referred from Pulmonary in [place], [place] for a PET avid RUL mas [...] Blood Consent: consented Plan discussed with: anesthesiologist, ELECTRICIAN OFFICE and surgeon/proceduralist. documented in this encounter [...]
--- OUTSIDE RECORDS SUMMARY | 2021-06-15 12:50 | XMS REPORT | Encounter Summary ---
Author Author [facility] Organization [facility] Address Unknown Phone Unavailable Care Team Providers Care Career Technology Teacher Name Role Phone No Pcp, Na PCP Unavailable Encounter Details Care Team Description Date Type Department Jass Vasquez MD [address] Ortho/Med Pavilion [address] [place] [address] Mass of upper lobe of right lung (Primar y Dx); Encounter for screening laboratory testing for COVID-19 virus in asymptomatic patient 05/06/2021 Prep for Case Pulmonology: Main [place], Medical Pavilion [address], [address] [address] Social History Date Tobacco Use [...] >60 >60 mL/min [facility]IN [facility] Comment: Swedish The eGFR is not validated f or use in drug dosing adjustments. Continue to use estimated creatinine clearance per dosing reference text. Please contact the Clinical Pharmacist for questions. eGFR >60 >60 mL/min [facility] Swedish Comment: The eGFR is not validated for use in drug dosing adjustments. Continue to use estimated creatinine clearance per dosing reference text. Please contact the Clinical Pharmacist for questions. Specimen Blood Performing Organization Address City/State/ZIP Code P hope Number [facility]IN [facility] [address] [place] [address] * CBC (05/06/2021 5:29 PM CDT) Pathologist [facility] White Blood 8.3 4.5 - 11.0 K/UL [...] P hope Number [facility] [address] [place] [address] * COVID-19 (SARS-COV-2) PCR (05/06/2021 5:13 PM CDT) COVID-19 FLOCKED SWAB MAIN LAB (SARS-CoV-2) NASOPHARYNGEAL PCR Source COVID-19 NOT DETECTED DN-NOT DETECTED [facility] (SARS-CoV-2) Comment: PCR This [...] Performance characteristics have been verified by the [facility] Clinical Laboratories. Fact sheet for providers: https://www.fda.gov/media/137 78/download Fact sheet for patients: https://www.fda.gov/media/9924 81/download Specimen Flocked Swab - Nasopharyngeal Performing Organization Address City/State/ZIP Code P hope Number MAIN LAB [address] [place] [address] documented in this encounter Visit Diagnoses Diagnosis [...]
--- OUTSIDE RECORDS SUMMARY | 2021-06-15 12:50 | XMS REPORT | Encounter Summary ---
Author Author [facility] Organization [facility] Address Unknown Phone Unavailable Care Team Providers Care Approver Name Role Phone No Pcp, Na PCP Unavailable Reason for Visit * Auth/Cert Referred By Contact Referred To Contact Status Reason Specialty Diagnoses / Procedures Diagnoses Mass of upper lobe of right lung Mass of upper lobe of right lung [R91.8] P rocedures CT BRNCHSC INCL FLUOR GDNCE DX W/CELL WASHG SPX CT BRONCHOSCOPY W/CPTR-ASST IMAGE-GUIDED NAVIGATION CT BRNCHSC W/BRNCL ALVEOLAR LAVAGE CT BRNCHSC EBUS GUIDED SAMPL 3/> NODE STATION/STRUX CT BRONCHOSCOPY W/TRANSBRONCHIAL LUNG BX [address] BRONCHOSCOPY NEEDLE BX TRACHEA MAIN STEM&/BRON BRONCHOSCOPY [...] Date Type Department Jass Vasquez MD [address] Ortho/Med Pavilion [address] [place] [address] Mass of upper lobe of right lung 05/09/2021 Hospital Operating Room: [facility] [address] [facility] [address] [place] [address] Social History Date Tobacco Use [...] performed on 05-06-21. Jass Vasquez MD Pager [phone] * Brea Shankar MD - 05/06/2021 4:00 PM CDT Subjective: History of Present Illness Alea Coyne Jr. is a 51 y.o. male with PMH of HLD, COPD, CAD, reported rec ent diagnosis of CHF, history of seizures (not on AEDs), ?history of pancreatic cancer in 2013, and current tobacco abuse referred for a PET avid RUL mass. Patient was referred from Pulmonary in [place], [place] for a PET avid RUL mas [...] discussed case with Dr Valerie Shankar, [facility] fellow and concur with our fellow's [...] 11:15am. This will be at the Main [place] at [address] [place] [address]. - Nothing to eat or drink after [...] in at admitting, just inside the main [facility] entrance , located at [address] [place] [address], two and a half (2 1/2 ) hours before your procedure time. There is a parking garage (P3) located acros s from the entrance. - you will need a subway train driver to and from the procedure. Only [...] or holidays: Call and request for the Electronic Tech to be paged. - To cancel, change, or schedule a clinic appointment: Call our Pulmonary [place] at Pulmonary Clinic Nurse Coordinator-Tenisha Burleson RN - Office: [phone] fa x: [phone] documented in this encounter Plan of Treatment [...] SPECIMENS (05/09/2021 1:30 PM CDT) PATHOLOGY [facility] [employer] [facility] [email or web address] Department of Pathology and Laboratory Medicine [address] [place] [address] Surgical Pathology Office: [phone] SURGICAL PATHOLOGY REPORT NAME: ALEA COYNE SURG PATH #: [id number] MR #: [id number] SPECIMEN CLASS: SR BILLING #: [id number] ALT ID #: LOCATION: [facility] DATE OF [...] Cell types evaluated: Tumor cells FDA status: Cafeteria Helper ############################## ############################## ############ Final Diagnosis: A. "RUL mass", biopsy: Squamous cell carcinoma, keratinizing. See comment. Comment: Immunohistochemical stains show the tumor cells are positive for p40, and negative for DASIA-3 and TTF-1 supporting the above diagnosis. Additional stain for PD-L1 will be performed and reported in an addendum. Pursuant to the Journeyman Powerhouse Operator Program at the [facility] Pathology Department, selected slides from [...] and Laboratory Medicine of the [facility] ([employer] [facility]) in compliance with CLIA'88 regulations. [...] Organization Address City/State/ZIP Code P hope Number [facility] [address] [place] [address] * CYTOLOGY FNA LYMPH NODE (05/09/2021 1:15 PM CDT) Cytology [facility] [email or web address] Department of Pathology and Laboratory Medicine [address] [place] [address] Surgical Pathology Office: [phone] CYTOLOGY REPORT NAME: ALEA COYNE SURG PATH #: [id number] MR #: [id number] ALT ID #: BILLING #: [id number] LOCATION: [facility] DATE OF PROCEDURE: 05/09/2021 AGE: [...] determination of adequacy was performed by the butadiene compressor operator, JESSICA, on Diff-Quik stained slide(s). Passes one [...] Code P hope Number MAIN LAB [address] [place] [address] * CT CHEST WO CONTRAST (05/09/2021 12:30 [...] Report Procedure Date: 05/09/2021 RESULTS 11:57 AM [facility]: [id number] Date of : 1970 Gender: Male Attending Physician: Jass Vasquez MD Procedure: Bronchoscopy Indications: Right upper lobe mass Providers: Jass Vasquez MD (Doctor), Brea Shankar MD (Fellow), Akbar Valderrama RN (Nurse), Bryan Munroe (Cluster Bore Operator) Referring Physician: Rebecca Rea Medications: General [...] aspiration was also performed using an Olympus Pix[employer]ot 21 gauge needle in the right superior [...]
--- OUTSIDE RECORDS SUMMARY | 2021-06-15 12:50 | XMS REPORT | Encounter Summary ---
Author Author [facility] Organization [facility] Address Unknown Phone Unavailable Care Team Providers Care Professor Computer Science Name Role Phone No Pcp, Na PCP [...] Date Type Department Jass Vasquez MD [address] Ortho/Med Pavilion [address] [place] [address] BRONCHOSCOPY DIAGNOSTIC WITH/ WITHOUT CE LL WASHING - FLEXIBLE 05/09/2021 Surgery Operating Room: [facility], [address] [place] [address] Surgery Details Trauma Case? Date/Time [...] performed on 05-06-21. Jass Vasquez MD Pager [phone] * Brea Sahnkar MD - 05/06/2021 4:00 PM CDT Subjective: History of Present Illness Alea Coyne Jr. is a 51 y.o. male with PMH of HLD, COPD, CAD, reported rec ent diagnosis of CHF, history of seizures (not on AEDs), ?history of pancreatic cancer in 2013, and current tobacco abuse referred for a PET avid RUL mass. Patient was referred from Pulmonary in [place], [place] for a PET avid RUL mas [...] visit, discussed case with Dr Valerie Shankar, [facility] fellow and concur with our fellow's [...] of 11:15am. This will be at the [facility] at [address] [place] [address]. - Nothing to eat or drink after [...] check in at admitting, just inside the [facility] entrance , located at [address] [place] [address], two and a half (2 1/2 ) hours before your procedure time. There is a parking garage (P3) located acros s from the entrance. - you will need a wedding transportation driver to and from the procedure. Only [...] or holidays: Call and request for the [employer] Advisor to be paged. - To cancel, change, or schedule a clinic appointment: Call our Pulmonary [place] at Pulmonary Clinic Nurse Coordinator-Tenisha Burleson RN - Office: [phone] fa x: [phone] documented in this encounter Plan of Treatment [...] SPECIMENS (05/09/2021 1:30 PM CDT) PATHOLOGY [facility] [employer] [facility] [email or web address] Department of Pathology and Laboratory Medicine [address] [place] [address] Surgical Pathology Office: [phone] SURGICAL PATHOLOGY REPORT NAME: ALEA COYNE SURG PATH #: [id number] MR #: [id number] SPECIMEN CLASS: SR BILLING #: [id number] ALT ID #: LOCATION: [facility] DATE OF [...] Cell types evaluated: Tumor cells FDA status: Air Brake Tester ############################## ############################## ############ Final Diagnosis: A. "RUL mass", biopsy: Squamous cell carcinoma, keratinizing. See comment. Comment: Immunohistochemical stains show the tumor cells are positive for p40, and negative for DASIA-3 and TTF-1 supporting the above diagnosis. Additional stain for PD-L1 will be performed and reported in an addendum. Pursuant to the Standards Analyst Program at the [facility] Pathology Department, [...] of Pathology and Laboratory Medicine of the [facility] ([employer] [facility]) in compliance with [...] of Pathology and Laboratory Medicine of the [facility]. It has not been cleared or approved by the FDA. The FDA has determined that such clearance or approval is not necessary. Specimen Other (Specify) Performing Organization Address City/State/ZIP Code P hope Number [facility] [address] [place] [address] * CYTOLOGY FNA LYMPH NODE (05/09/2021 1:15 PM CDT) Cytology [facility] [email or web address] Department of Pathology and Laboratory Medicine [address] [place] [address] Surgical Pathology Office: [phone] CYTOLOGY REPORT NAME: ALEA COYNE SURG PATH #: [id number] MR #: [id number] ALT ID #: BILLING #: [id number] LOCATION: [facility] DATE OF PROCEDURE: 05/09/2021 AGE: [...] determination of adequacy was performed by the ruffler, JESSICA, on Diff-Quik stained slide(s). Passes one [...] Number [facility] [address] [place] [address] * CT CHEST WO CONTRAST (05/09/2021 12:30 [...] Procedure Date: 05/09/2021 RESULTS 11:57 AM CSN: [id number] Date of : 1970 Gender: Male Attending Physician: Jass Vasquez MD Procedure: Bronchoscopy Indications: Right upper lobe mass Providers: Jass Vasquez MD (Doctor), Brea Shankar MD (Fellow), Akbar Valderrama RN (Nurse), Bryan Munroe (Branch Service Specialist) Referring Physician: Rebecca Rea Medications: General Anesthesia [...] aspiration was also performed using an Olympus NervogridiShot 21 gauge needle in the right superior [...]
--- NOTE | 2021-06-15 12:51 | ED General ---
General Chief Complaint: General Problems/Pain Stated Complaint: PORT CHECK History of Present Illness Date Seen by Provider: Jun 15, 2021 Time Seen by Provider: 12:51 Initial Comments 51-year-old male presents to have his port checked. Patient recently had a port placed and had concerns. Patient fell this morning and is left side where his port is located. He has a little bit of shoulder pain but full range of motion does not want that further evaluated. Patient just wants to make sure there is no damage or displacement of his port. Patient does not show any swelling or injury around the port incision. Patient reports he was recently diagnosed with cancer and asked why he had the port just placed for chemotherapy. No other systemic complaints. Allergies and Home Medications Allergies Coded Allergies: ofloxacin (Verified Allergy, Mild, 07/17/19) acetaminophen (Verified Allergy, Unknown, Hives, 03/13/20) gabapentin (Verified Allergy, Unknown, DELUSIONS, 05/13/21) Penicillins (Verified Adverse Reaction, Unknown, Pt has received Ceftriaxone in the past, 07/17/19) aspirin (Verified Adverse Reaction, Unknown, 07/17/19) latex (Verified Adverse Reaction, Unknown, 07/17/19) Uncoded Allergies: TAPE (Allergy, Mild, 07/17/09) Patient Home Medication List Home Medication List Reviewed: Yes Albuterol Sulfate (Proair Respiclick) 90 Mcg Aer.pow.ba, 2 PUFF IH Q4H PRN for SHORTNESS OF BREATH, (Reported) Entered as Reported by: JAVIER LUU on 06/04/211655 Budesonide/Formoterol Fumarate (Budesonide-Formoterol 160-4.5) 10.2 Gm Hfa.aer.ad, 2 PUFF IH BID, (Reported) Entered as Reported by: JAVIER LUU on 06/04/211655 Cefdinir (Cefdinir) 300 Mg Capsule, 300 MG PO BID, (Reported) Entered as Reported by: JAVIER LUU on 06/04/211655 Doxycycline Monohydrate (Doxycycline Monohydrate) 100 Mg Capsule, 100 MG PO BID, (Reported) Entered as Reported by: JAVIER LUU on 06/04/211655 Fenofibrate Nanocrystallized (Fenofibrate) 145 Mg Tablet, 145 MG PO DAILY Prescribed by: CONNIE JARVIS on 12/18/20 1004 Hydrocodone/Acetaminophen (Hydrocodone-Acetamin 5-325 mg) 1 Each Tablet, 1 TAB PO Q6H PRN for PAIN-MODERATE (5-7) Prescribed by: RIGOBERTO WARE on 04/25/21 1701 Morphine Sulfate (Morphine Sulfate IR Tablet) 15 Mg Tablet, 15 MG PO Q8H PRN for Lung Cancer pain in Chest Prescribed by: SERGE LIGHT on 05/31/21 0526 Tiotropium [place] (Spiriva Respimat 2.5MCG/ACTUATION) 4 Gm Mist.inhal, 1 PUFF IH DAILY, (Reported) Entered as Reported by: JAVIER LUU on 06/04/21 1656 Review of Systems Review of Systems Constitutional: no symptoms reported EENTM: no symptoms reported Respiratory: no symptoms reported Cardiovascular: no symptoms reported Gastrointestinal: no symptoms reported Genitourinary: no symptoms reported Musculoskeletal: see HPI Skin: see HPI Psychiatric/Neurological: No Symptoms Reported Hematologic/Lymphatic: See HPI Past Pzaxcmq-Glfpyk-Aftxmk Hx Immunizations Up To Date Tetanus Booster (TDap): Unknown PED Vaccines UTD: Yes First/Initial COVID19 Vaccinat: not vacc Second COVID19 Vaccination Deonte: not vacc Seasonal Allergies Seasonal Allergies: No Past Medical History Surgeries: Yes (hernia repair, left testicle injury, brain surgery, cardiac stent) Cardiac, Coronary Stent, Orthopedic Respiratory: Yes (lung ca) COPD Currently Using CPAP: No Currently Using BIPAP: No Cardiac: Yes (STENT) Coronary Artery Disease, Heart Attack Neurological: Yes Seizure Disorder Reproductive Disorders: No Sexually Transmitted Disease: No HIV/AIDS: No Genitourinary: Yes Kidney Stones Gastrointestinal: No Musculoskeletal: No Endocrine: No HEENT: Yes Loss of Vision: Bilateral Cancer: Yes Lung, Pancreatic Psychosocial: Yes ("anger issues") Integumentary: No Blood Disorders: No Adverse Reaction/Blood Tranf: No (N/A) Family Medical History Stroke Physical Exam Vital Signs Vital Signs - First Documented 06/15/21 13:02 Temp 36.4 Pulse 105 Resp 14 B/P (MAP) 124/87 (99) Pulse Ox 97 O2 Delivery Room Air Capillary Refill : Height, Weight, BMI Height: 6'4.00" Weight: 225lbs. 0.0oz. 102.761909aa; 25.43 BMI Method:Stated General Appearance: No Apparent Distress, WD/WN Neck: Normal Inspection, Non Tender, Supple Respiratory: Lungs Clear, Normal Breath Sounds Cardiovascular: Regular Rate, Rhythm, No Edema Extremity: Normal Capillary Refill, Normal Range of Motion Neurologic/Psychiatric: Alert, Oriented x3, Normal Mood/Affect, house sitter II-XII Norm as Tested Skin: Other (Port with incision is clean dry intact with no bruising or obvious injury in the left chest wall) Progress/Results/Core Measures Suspected Sepsis SIRS Temperature: Pulse: Respiratory Rate: Blood Pressure / Mean: Results/Orders My Orders Orders - PAVLE SALGUERO DO Chest 1 View Ap/Pa Only (06/15/21 12:51) Vital Signs/I&O 06/15/21 13:02 Temp 36.4 Pulse 105 Resp 14 B/P (MAP) 124/87 (99) Pulse Ox 97 O2 Delivery Room Air Capillary Refill : Progress Note : Progress Note X-ray shows the port line has moved upwards most likely into the subclavian with a loop and the tip is higher up. I did review with Dr. Sheldon. We will have the patient follow-up with him tomorrow morning so he can review the x-ray with him and discuss different options of having the port line placement back to the proper area. X-ray on 06/05/2021 shows proper placement of the port line. Patient was stable and discharged Departure Impression Primary Impression: Encounter for care related to Port-a-Cath Disposition: 01 HOME, SELF-CARE Condition: Stable Departure-Patient Inst. Referrals: DARREN CARNEY MD (PCP/Family) Primary Care Physician Patient Instructions: Ju (DC), How to Care for a Portacath Add. Discharge Instructions: Follow-up with Dr. Sheldon tomorrow for further outpatient management of your Port-A-Cath All discharge instructions reviewed with patient and/or family. Voiced understanding. PAVEL SALGUERO DO Jun 15, 2021 12:51
--- NOTE | 2021-06-15 13:30 | Diagnostic Imaging Report ---
EXAMINATION: Chest radiograph, portable AP view. DATE: 06/15/2021 1:02 PM INDICATION: 51-year-old male, fall. Chest pain. History of lung cancer. COMPARISON: June 05, 2021. FINDINGS: There is redemonstrated right upper lobe airspace consolidation. There is an area of lucency in the right upper lobe which may relate to an area of cavitary change. There is a left-sided port catheter with tip overlying the upper SVC. There is interval coiling of the catheter in the left upper chest. Heart size and mediastinal contours are unchanged. There is no identified pneumothorax. There is no large pleural effusion. There is no new focal airspace consolidation. IMPRESSION: 1. Redemonstrated right upper lobe consolidation with areas of internal lucency which may relate to cavitary change. 2. No new focal airspace consolidation. 3. Change in course of the left-sided port catheter with tip overlying the upper SVC. Dictated by: Dictated on workstation # [id number]
[2021-06-15 13:34] VITALS: BP 124/87
== END 2021-06-15 13:38 | disposition home or self-care (01) ==
LOC: EDUNIT# 12:44 → ER FS 12:46
DX: Z45.2 Encounter for adjustment and management of vascular access device (principal); J44.9 Chronic obstructive pulmonary disease, unspecified; I25.2 Old myocardial infarction
CPT/HCPCS: 71045

== ENCOUNTER → 2021-06-16 | Outpatient (CLI) | payer MEDICAID ==
--- NOTE | 2021-06-16 13:50 | Diagnostic Imaging Report ---
INDICATION: Lung cancer 2 views of the chest show normal heart size and vascularity. There is a 7 cm cavitary mass in the right upper lobe. There is less surrounding inflammatory change compared to 05/31/2021 study. The air-fluid level is smaller. The left lung is clear. There is no effusion or pneumothorax. There has been placement of a Port-A-Cath from the left jugular approach. There is a loop in the midportion of the catheter extending laterally. The tip of the catheter is at the junction of the innominate vein and SVC. IMPRESSION: There has been improved aeration of the right lung since 05/31/2021. There has been placement of a Port-A-Cath as described. Dictated by: Dictated on workstation # [id number]
== END ==
LOC: RAD 12:01
PROVIDERS: ATTEND Surgery
DX: Z45.2 Encounter for adjustment and management of vascular access device (principal); Z85.118 Personal history of other malignant neoplasm of bronchus and lung
CPT/HCPCS: 71046

== ENCOUNTER → 2021-06-17 | Outpatient (CLI) | payer MEDICAID ==
[~2021-06-17] MED LIST changes: +IOHEXOL 300 MG/ML 50 ML (OMNIPAQUE 300) VIAL IV ONE; +PANT40TA2 PO
--- NOTE | 2021-06-17 16:34 | Diagnostic Imaging Report ---
Fluoroscopy. Indication: Check Port-A-Cath patency The chest exam performed prior to the study again identified a Port-A-Cath on the left. This was noted on the previous exam of 06/16/2021. As seen on the prior exam there was a loop in the midportion of the Port-A-Cath. Following aseptic preparation of the port contrast was injected. There was evidence of extension of contrast through the port. There is no sign of obstruction. There is no extravasation either. 17.7 seconds of fluoroscopy time was utilized. Impression: The left-sided Port-A-Cath is patent. Dictated by: Dictated on workstation # [id number]
== END ==
LOC: RAD 15:49
PROVIDERS: ATTEND Nurse Practitioner Adult Health
DX: T82.514A Breakdown (mechanical) of infusion catheter, initial encounter (principal)
CPT/HCPCS: 36598

== ENCOUNTER 2021-07-26 15:16 | Emergency (ER) | payer MEDICAID ==
[~2021-07-26 15:16] MED LIST changes: +CLIN-144 PO; -CLIN300C12 PO; -IOHEXOL 300 MG/ML 50 ML (OMNIPAQUE 300) VIAL IV ONE
--- OUTSIDE RECORDS SUMMARY | 2021-07-26 15:22 | XMS REPORT | Clinical Summary ---
Author Author [facility] Organization [facility] Address Unknown Phone Unavailable Care Team Providers Care Accounting Lecturer Name Role Phone No Pcp, Na PCP Unavailable Source Comments Some departments are not documenting in the electronic medical record. If you d o not see the information that you expected, contact Release of Information in [facility] [email or web address] Information Management department at [phone] for further assistan ce in locating additional records.[facility] Allergies Comments Active Allergy Reactions Severity [...] Palomino MD 04/25/2021 Hosp Radiology Documentation Only from Last 3 Months Surgical History Surgery Date Site/Laterality Comments SHOULDER SURGERY 11/22/2017 Right HX KNEE SURGERY Bilateral HX CHOLECYSTECTOMY 08/30/2015 - 08/29/2016 HERNIA REPAIR TESTICLE SURGERY BRONCHOSCOPY 05/09/2021 Bronchus/N/A BRONCHOSCOPY DI AGNOSTIC WITH/ WITHOUT CELL WASHING - FLEXIBLE performed by Blanca Vasquez MD at [facility] OR BRONCHOSCOPY 05/09/2021 Bronchus/N/A BRONCHOSCOPY WI IMAGE - GUIDED NAVIGATION - FLEXIBLE performed by Jass Vasquez MD at [facility] OR BRONCHOSCOPY 05/09/2021 Bronchus/N/A BRONCHOSCOPY [facility] BRONCHIAL ALVEOLAR LAVAGE - FLEXIBLE performed by Jass Vasquez MD at [facility] OR BRONCHOSCOPY 05/09/2021 Bronchus/N/A BRONCHOSCOPY WI ENDOBRONCHIAL ULTRASOUND GUIDED TRANSTRACHEAL/ TRANSBRONCHIAL SAMPLING - 3 OR MORE MEDIASTINAL/ HILAR LYMPH NODE STATIONS/ STRUCTURE - FLEXIBLE performed by Blanca Vasquez MD at [facility] OR BRONCHOSCOPY 05/09/2021 Bronchus/N/A BRONCHOSCOPY WI TRANSBRONCHIAL LUNG BIOPSY - FLEXIBLE - SINGLE LOBE performed by Jass Martini MD at [facility] OR BRONCHOSCOPY 05/09/2021 Bronchus/N/A BRONCHOSCOPY WI TRANSBRONCHIAL NEEDLE ASPIRATION AND BIOPSY TRACHEA/ MAIN STEM/ LOBAR BR ONCHUS - FLEXIBLE performed by Jass Vasquez MD at [facility] OR Medical History Medical History Date [...] testing for COVID-19 virus in asymptomatic patient from Last 3 Months Results * CT CHEST EXTERNAL IMAGING (05/13/2021 12:00 AM CDT) Modality Anatomical Region Laterality Computed Radiography Specimen Narrative Scheduling, Silent - 05/25/2021 3:21 PM CDT This order has been auto finalized and does not contain a result. * PATHOLOGY SURGICAL < 5 SPECIMENS (05/09/2021 1:30 PM CDT) PATHOLOGY [facility] [employer] [email or web address] Department of Pathology and Laboratory Medicine [address] [place] [id number] Surgical Pathology Office: [phone] SURGICAL PATHOLOGY REPORT NAME: ALEA COYNE. SURG PATH #: [id number] MR #: [id number] SPECIMEN CLASS: SR BILLING #: [id number] ALT ID #: LOCATION: [facility] DATE OF [...] Cell types evaluated: Tumor cells FDA status: [employer] ############################## ############################## ############ Final Diagnosis: A. "RUL mass", biopsy: Squamous cell carcinoma, keratinizing. See comment. Comment: Immunohistochemical stains show the tumor cells are positive for p40, and negative for DASIA-3 and TTF-1 supporting the above diagnosis. Additional stain for PD-L1 will be performed and reported in an addendum. Pursuant to the [employer] Program at the [facility] Pathology Department, selected slides from this [...] of Pathology and Laboratory Medicine of the [facility] ([employer]) in compliance with CLIA'88 [...] of Pathology and Laboratory Medicine of the [facility]. It has not been cleared or approved by the FDA. The FDA has determined that such clearance or approval is not necessary. Specimen Other (Specify) Performing Organization Address City/State/ZIP Code P hope Number [facility] [address] [place] [address] * CYTOLOGY FNA LYMPH NODE (05/09/2021 1:15 PM CDT) Cytology [email or web address] Department of Pathology and Laboratory Medicine [address] [place] [address] Surgical Pathology Office: [phone] CYTOLOGY REPORT NAME: ALEA COYNEValerie SURG PATH #: [id number] MR #: [id number] ALT ID #: BILLING #: [id number] LOCATION: [facility] DATE OF PROCEDURE: 05/09/2021 AGE: [...] determination of adequacy was performed by the elementary supervisor, JESSICA, on Diff-Quik stained slide(s). Passes one [...] Code P hope Number MAIN LAB [address] [place] [address] * CT CHEST WO CONTRAST (05/09/2021 12:30 PM CDT) Modality Anatomical Region Laterality Computed Tomography Chest Specimen Impressions [facility] RESULTS - 05/09/2021 1:13 PM CDT Lobulated right upper lobe mass occluding the [...] Knight M.D. on 05/09/2021 12:51 PM. Narrative [facility] RESULTS - 05/09/2021 1:[address] Chest Clinical Indication: Right [...] lesion. Visualized Upper Abdomen: Borderline hepatic steatosis. Procedure Note Nishi Knight MD - 05/09/2021 CT Chest Clinical Indication: Right upper lobe [...] Procedure Date: 05/09/2021 RESULTS 11:57 AM CSN: [id number] Date of : 1970 Gender: Male Attending Physician: Jass Vasquez MD Procedure: Bronchoscopy Indications: Right upper lobe mass Providers: Jass Vasquez MD (Doctor), Brea Shankar MD (Fellow), Akbar Valderrama RN (Nurse), Bryan Munroe (Manager Fixed Income) Referring Physician: Rebecca Rea Medications: General Anesthesia [...] aspiration was also performed using an Olympus Interventional ImagingiShot 21 gauge needle in the right superior [...] TELEMETRY STRIPS-SCAN (05/09/2021 12:00 AM CDT) Narrative 05/09/2021 12:00 AM CDT Ordered by an unspecified provider. * PROCEDURE RECORD-SCAN (05/09/2021 12:00 AM CDT) Narrative 05/09/2021 12:00 AM CDT Ordered by an unspecified provider. * CBC [...] P hope Number [facility] [address] [place] [address] * BASIC METABOLIC PANEL (05/06/2021 5:29 PM CDT) Sodium 141 137 - 147 MMOL/L [facility] Potassium 5.1 3.5 - 5.1 MMOL/L [facility] Chloride 105 98 - 110 MMOL/L [facility] CO2 28 21 - 30 MMOL/L [facility] LAB Anion Gap 8 3 - 12 [facility] LAB Glucose 91 70 - 100 MG/DL [facility] Blood Urea 12 7 - 25 MG/DL [facility] Nitrogen Creatinine 1.23 0.4 - 1.24 MG/DL [facility] Calcium 9.9 8.5 - 10.6 MG/DL MAIN LAB eGFR Non >60 >60 mL/min [facility] Comment: [place] The eGFR is not validated f or use in drug dosing adjustments. Continue to use estimated creatinine clearance per dosing reference text. Please contact the Clinical Pharmacist for questions. eGFR >60 >60 mL/min [facility] [place] Comment: The eGFR is not validated for use in drug dosing adjustments. Continue to use estimated creatinine clearance per dosing reference text. Please contact the Clinical Pharmacist for questions. Specimen Blood Performing Organization Address City/[facility]/ZIP Code P hope Number MAIN LAB [address] [place] [address] * COVID-19 (SARS-COV-2) PCR (05/06/2021 5:13 PM CDT) COVID-19 FLOCKED SWAB [facility] (SARS-CoV-2) NASOPHARYNGEAL PCR Source COVID-19 NOT DETECTED DN-NOT DETECTED [facility] (SARS-CoV-2) Comment: PCR This assay [...] Performance characteristics have been verified by the [facility] Clinical Laboratories. Fact sheet for providers: https://www.fda.gov/media/4214 78/download Fact sheet for patients: https://www.fda.gov/media/9695 81/download Specimen Flocked Swab - Nasopharyngeal Performing Organization Address City/State/ZIP Code P hope Number [facility] [address] [place] [address] from Last 3 Months Insurance Type Payer Benefit Subscriber ID Effective Phone Address Plan / Dates Group Medicaid [facility] MEDICAID [facility] [id number] 2017-P [address] [place] [address] [phone] Advance Directives Patient Test Clerk Explanation Type Date Recorded Advance 08/02/2018 12:00 PM Directive/DPOA Date Inactivated Comments Code Status Date Activated 08/05/2018 2:59 PM Full Code 08/02/2018 2:31 PM Provider has discussed Code Status No, discussion no t w/Patient or Family? necessary based on Dx Care Teams Start Date End Date Accounting Lecturer Relationship Specialty 04/08/18 No Pcp, Na PCP - General
--- NOTE | 2021-07-26 15:40 | ED Respiratory ---
General Chief Complaint: Respiratory Problems Stated Complaint: SOB History of Present Illness Date Seen by Provider: Jul 26, 2021 Time Seen by Provider: 15:32 Initial Comments 51-year-old male presents with cough, patient reports he is been diagnosed by his primary care provider with pneumonia. He is supposed to be getting outpatient Rocephin injections. That he went to get his outpatient Rocephin injection he stated they were not doing them today and they sent him here to get his injection. Patient is only here for a Rocephin he does not want any further evaluation. Allergies and Home Medications Allergies Coded Allergies: ofloxacin (Verified Allergy, Mild, 07/17/19) acetaminophen (Verified Allergy, Unknown, Hives, 03/13/20) gabapentin (Verified Allergy, Unknown, DELUSIONS, 05/13/21) Penicillins (Verified Adverse Reaction, Unknown, Pt has received Ceftriaxone in the past, 07/17/19) aspirin (Verified Adverse Reaction, Unknown, 07/17/19) latex (Verified Adverse Reaction, Unknown, 07/17/19) Uncoded Allergies: TAPE (Allergy, Mild, 07/17/09) Patient Home Medication List Home Medication List Reviewed: Yes Albuterol Sulfate (Proair Respiclick) 90 Mcg Aer.pow.ba, 2 PUFF IH Q4H PRN for SHORTNESS OF BREATH, (Reported) Entered as Reported by: JAVIER LUU on 06/04/211655 Budesonide/Formoterol Fumarate (Budesonide-Formoterol 160-4.5) 10.2 Gm Hfa.aer.ad, 2 PUFF IH BID, (Reported) Entered as Reported by: JAVIER LUU on 06/04/21 165 Morphine Sulfate (Morphine Sulfate IR Tablet) 15 Mg Tablet, 15 MG PO Q8H PRN for Lung Cancer pain in Chest Prescribed by: SERGE LIGHT on 05/31/21 0526 Pantoprazole Sodium (Protonix) 40 Mg Tablet.dr, 40 MG PO DAILY, (Reported) Entered as Reported by: CHAPO VENTURA on 06/20/21 151 Tiotropium [place] (Spiriva Respimat 2.5MCG/ACTUATION) 4 Gm Mist.inhal, 1 PUFF IH DAILY, (Reported) Entered as Reported by: JAVIER LUU on 06/04/211655 Review of Systems Review of Systems Constitutional: see HPI Respiratory: cough Cardiovascular: no symptoms reported Gastrointestinal: no symptoms reported Genitourinary: no symptoms reported Musculoskeletal: no symptoms reported Skin: no symptoms reported Psychiatric/Neurological: No Symptoms Reported Hematologic/Lymphatic: No Symptoms Reported Past Zfqmfvz-Ektyfi-Cdptar Hx Immunizations Up To Date Tetanus Booster (TDap): Unknown PED Vaccines UTD: Yes First/Initial COVID19 Vaccinat: not vacc Second COVID19 Vaccination Deonte: not vacc Third COVID19 Vaccination Date: not vacc Seasonal Allergies Seasonal Allergies: No Past Medical History Surgery/Hospitalization HX: lung cancer. Surgeries: Yes (hernia repair, left testicle injury, brain surgery, cardiac stent) Cardiac, Coronary Stent, Orthopedic Respiratory: Yes (lung ca) COPD Currently Using CPAP: No Currently Using BIPAP: No Cardiac: Yes (STENT) Coronary Artery Disease, Heart Attack Neurological: Yes Seizure Disorder Reproductive Disorders: No Sexually Transmitted Disease: No HIV/AIDS: No Genitourinary: Yes Kidney Stones Gastrointestinal: No Musculoskeletal: No Endocrine: No HEENT: Yes Loss of Vision: Bilateral Cancer: Yes Lung, Pancreatic Psychosocial: Yes ("anger issues") Integumentary: No Blood Disorders: No Adverse Reaction/Blood Tranf: No (N/A) Family Medical History Stroke Physical Exam Capillary Refill : Height: 6'4.00" Weight: 225lbs. 0.0oz. 102.592339nw; 25.66 BMI Method:Stated General Appearance: no apparent distress Respiratory: decreased breath sounds (mild) Cardiovascular: normal peripheral pulses, regular rate, rhythm Gastrointestinal: non tender, soft Neurologic/Psychiatric: alert, normal mood/affect, oriented x 3 Skin: normal color, warm/dry Progress/Results/Core Measures Suspected Sepsis SIRS Temperature: Pulse: Respiratory Rate: Blood Pressure / Mean: Results/Orders My Orders Orders - SALGUEROVLADPAVEL L DO Ceftriaxone (Rocephin) (07/26/21 15:45) Lidocaine 1% Inj 20 Ml (Xylocaine 1% Inj (07/26/21 15:45) Benzonatate Capsule (Tessalon Perles) (07/26/21 15:45) Vital Signs/I&O Capillary Refill : Progress Note : Progress Note We were unable to find anyone that had disorders at [facility]. However he does seem on physical exam to have a likely pneumonia and has a history of lung cancer. I will give him an IM Rocephin along with a Tessalon Perle because he is actively coughing frequently. He will be discharged home and should follow-up with [facility] for further outpatient evaluation Departure Impression Primary Impression: Medication administered Additional Impression: Pneumonia Qualified Codes: J18.9 - Pneumonia, unspecified organism Disposition: HOME, SELF-CARE Condition: Stable Departure-Patient Inst. Referrals: DARREN CARNEY MD (PCP/Family) Primary Care Physician Patient Instructions: Community-Acquired Pneumonia in Adults Add. Discharge Instructions: Please follow-up with your primary care provider on Wednesday for further outpatient management All discharge instructions reviewed with patient and/or family. Voiced understanding. PAVEL SALGUERO DO Jul 26, 2021 15:40
[2021-07-26] MEDS ORDERED: BENZONATATE 100 MG (TESSALON) CAPSULE PO SCH (15:45)
[2021-07-26] MEDS ORDERED: LIDOCAINE 1% INJ 20 ML 20 ML VIAL INJ ONE (15:45)
[2021-07-26] MEDS ORDERED: cefTRIAXone 1,000 MG VIAL IM ONE (15:45)
[2021-07-26 16:19] VITALS: BP 116/52
== END 2021-07-26 16:19 | disposition home or self-care (01) ==
LOC: EDUNIT# 15:16 → ER FS 15:18
DX: J18.9 Pneumonia, unspecified organism (principal); J44.9 Chronic obstructive pulmonary disease, unspecified; I25.2 Old myocardial infarction
CPT/HCPCS: 99284

== ENCOUNTER 2021-08-26 10:54 | Outpatient (RCR) | payer MEDICAID ==
[2021-06-16 14:09] LABS: BASOPHILS % (AUTO) 0 % (0-10); EOSINOPHILS # (AUTO) 0.2 10^3/uL (0.0-0.3); EOSINOPHILS % (AUTO) 1 % (0-10); HEMATOCRIT 39 % (40-54); HEMOGLOBIN 13.1 g/dL (13.3-17.7); LYMPHOCYTES # (AUTO) 1.2 10^3/uL (1.0-4.0); LYMPHOCYTES % (AUTO) 10 % (12-44); MEAN CORPUSCULAR HEMOGLOBIN 30 pg (25-34); MEAN CORPUSCULAR HGB CONC 34 g/dL (32-36); MEAN CORPUSCULAR VOLUME 90 fL (80-99); MEAN PLATELET VOLUME 9.3 fL (9.0-12.2); MONOCYTES # (AUTO) 0.7 10^3/uL (0.0-1.0); MONOCYTES % (AUTO) 6 % (0-12); NEUTROPHILS # (AUTO) 10.2 10^3/uL (1.8-7.8); NEUTROPHILS % (AUTO) 82 % (42-75); PLATELET COUNT 279 10^3/uL (130-400); WHITE BLOOD COUNT 12.5 10^3/uL (4.3-11.0)
[2021-06-16 14:27] LABS: CALCIUM 9.8 MG/DL (8.5-10.1); CREATININE SERUM 0.84 MG/DL (0.60-1.30); MAGNESIUM 1.9 MG/DL (1.6-2.4); POTASSIUM 3.9 MMOL/L (3.6-5.0)
[2021-06-23 11:01] LABS: BASOPHILS % (AUTO) 1 % (0-10); EOSINOPHILS % (AUTO) 0 % (0-10); HEMATOCRIT 42 % (40-54); HEMOGLOBIN 14.3 g/dL (13.3-17.7); LYMPHOCYTES # (AUTO) 0.2 10^3/uL (1.0-4.0); LYMPHOCYTES % (AUTO) 3 % (12-44); MEAN CORPUSCULAR HEMOGLOBIN 30 pg (25-34); MEAN CORPUSCULAR HGB CONC 34 g/dL (32-36); MEAN CORPUSCULAR VOLUME 89 fL (80-99); MEAN PLATELET VOLUME 9.2 fL (9.0-12.2); MONOCYTES # (AUTO) 0.1 10^3/uL (0.0-1.0); MONOCYTES % (AUTO) 1 % (0-12); NEUTROPHILS # (AUTO) 7.3 10^3/uL (1.8-7.8); NEUTROPHILS % (AUTO) 94 % (42-75); PLATELET COUNT 270 10^3/uL (130-400); WHITE BLOOD COUNT 7.8 10^3/uL (4.3-11.0)
[2021-06-23 11:21] LABS: ALBUMIN 3.9 GM/DL (3.2-4.5); BILIRUBIN,TOTAL 0.5 MG/DL (0.1-1.0); CALCIUM 10.7 MG/DL (8.5-10.1); POTASSIUM 4.8 MMOL/L (3.6-5.0); TOTAL PROTEIN 7.4 GM/DL (6.4-8.2)
[2021-06-30 11:11] LABS: BASOPHILS % (AUTO) 0 % (0-10); EOSINOPHILS % (AUTO) 0 % (0-10); HEMATOCRIT 43 % (40-54); HEMOGLOBIN 14.5 g/dL (13.3-17.7); LYMPHOCYTES # (AUTO) 0.1 10^3/uL (1.0-4.0); LYMPHOCYTES % (AUTO) 3 % (12-44); MEAN CORPUSCULAR HEMOGLOBIN 30 pg (25-34); MEAN CORPUSCULAR HGB CONC 34 g/dL (32-36); MEAN CORPUSCULAR VOLUME 90 fL (80-99); MEAN PLATELET VOLUME 9.1 fL (9.0-12.2); MONOCYTES % (AUTO) 1 % (0-12); NEUTROPHILS # (AUTO) 4.4 10^3/uL (1.8-7.8); NEUTROPHILS % (AUTO) 95 % (42-75); PLATELET COUNT 239 10^3/uL (130-400); WHITE BLOOD COUNT 4.7 10^3/uL (4.3-11.0)
[2021-06-30 11:29] LABS: ALBUMIN 4.2 GM/DL (3.2-4.5); BILIRUBIN,TOTAL 0.5 MG/DL (0.1-1.0); CREATININE SERUM 0.93 MG/DL (0.60-1.30); POTASSIUM 4.8 MMOL/L (3.6-5.0); TOTAL PROTEIN 7.2 GM/DL (6.4-8.2)
[2021-07-07 10:56] LABS: BASOPHILS % (AUTO) 0 % (0-10); EOSINOPHILS % (AUTO) 0 % (0-10); HEMATOCRIT 43 % (40-54); HEMOGLOBIN 14.6 g/dL (13.3-17.7); LYMPHOCYTES # (AUTO) 0.2 10^3/uL (1.0-4.0); LYMPHOCYTES % (AUTO) 2 % (12-44); MEAN CORPUSCULAR HEMOGLOBIN 30 pg (25-34); MEAN CORPUSCULAR HGB CONC 34 g/dL (32-36); MEAN CORPUSCULAR VOLUME 90 fL (80-99); MEAN PLATELET VOLUME 9.3 fL (9.0-12.2); MONOCYTES # (AUTO) 0.1 10^3/uL (0.0-1.0); MONOCYTES % (AUTO) 1 % (0-12); NEUTROPHILS # (AUTO) 8.5 10^3/uL (1.8-7.8); NEUTROPHILS % (AUTO) 96 % (42-75); PLATELET COUNT 203 10^3/uL (130-400); WHITE BLOOD COUNT 8.8 10^3/uL (4.3-11.0)
[2021-07-07 11:13] LABS: ALBUMIN 4.3 GM/DL (3.2-4.5); BILIRUBIN,TOTAL 0.4 MG/DL (0.1-1.0); CALCIUM 10.6 MG/DL (8.5-10.1); CREATININE SERUM 1.03 MG/DL (0.60-1.30); MAGNESIUM 2.6 MG/DL (1.6-2.4); POTASSIUM 4.6 MMOL/L (3.6-5.0); TOTAL PROTEIN 7.4 GM/DL (6.4-8.2)
[2021-07-14 11:08] LABS: BASOPHILS % (AUTO) 1 % (0-10); EOSINOPHILS # (AUTO) 0.1 10^3/uL (0.0-0.3); EOSINOPHILS % (AUTO) 2 % (0-10); HEMATOCRIT 41 % (40-54); LYMPHOCYTES # (AUTO) 0.4 10^3/uL (1.0-4.0); LYMPHOCYTES % (AUTO) 7 % (12-44); MEAN CORPUSCULAR HEMOGLOBIN 31 pg (25-34); MEAN CORPUSCULAR HGB CONC 34 g/dL (32-36); MEAN CORPUSCULAR VOLUME 89 fL (80-99); MEAN PLATELET VOLUME 9.4 fL (9.0-12.2); MONOCYTES # (AUTO) 0.4 10^3/uL (0.0-1.0); MONOCYTES % (AUTO) 7 % (0-12); NEUTROPHILS # (AUTO) 4.4 10^3/uL (1.8-7.8); NEUTROPHILS % (AUTO) 81 % (42-75); PLATELET COUNT 161 10^3/uL (130-400); WHITE BLOOD COUNT 5.4 10^3/uL (4.3-11.0)
[2021-07-14 11:28] LABS: CALCIUM 9.7 MG/DL (8.5-10.1); CREATININE SERUM 0.85 MG/DL (0.60-1.30); POTASSIUM 4.5 MMOL/L (3.6-5.0)
[2021-07-21 10:51] LABS: BASOPHILS % (AUTO) 0 % (0-10); EOSINOPHILS # (AUTO) 0.1 10^3/uL (0.0-0.3); EOSINOPHILS % (AUTO) 2 % (0-10); HEMATOCRIT 39 % (40-54); HEMOGLOBIN 13.4 g/dL (13.3-17.7); LYMPHOCYTES # (AUTO) 0.4 10^3/uL (1.0-4.0); LYMPHOCYTES % (AUTO) 8 % (12-44); MEAN CORPUSCULAR HEMOGLOBIN 31 pg (25-34); MEAN CORPUSCULAR HGB CONC 35 g/dL (32-36); MEAN CORPUSCULAR VOLUME 90 fL (80-99); MEAN PLATELET VOLUME 9.2 fL (9.0-12.2); MONOCYTES # (AUTO) 0.3 10^3/uL (0.0-1.0); MONOCYTES % (AUTO) 7 % (0-12); NEUTROPHILS % (AUTO) 82 % (42-75); PLATELET COUNT 171 10^3/uL (130-400); WHITE BLOOD COUNT 4.9 10^3/uL (4.3-11.0)
[2021-07-21 11:11] LABS: BILIRUBIN,TOTAL 0.6 MG/DL (0.1-1.0); CALCIUM 9.7 MG/DL (8.5-10.1); CREATININE SERUM 0.84 MG/DL (0.60-1.30); MAGNESIUM 1.9 MG/DL (1.6-2.4); POTASSIUM 4.1 MMOL/L (3.6-5.0); TOTAL PROTEIN 6.7 GM/DL (6.4-8.2)
[2021-07-28 09:50] LABS: BASOPHILS % (AUTO) 1 % (0-10); EOSINOPHILS # (AUTO) 0.1 10^3/uL (0.0-0.3); EOSINOPHILS % (AUTO) 1 % (0-10); HEMATOCRIT 40 % (40-54); HEMOGLOBIN 13.9 g/dL (13.3-17.7); LYMPHOCYTES # (AUTO) 0.4 10^3/uL (1.0-4.0); LYMPHOCYTES % (AUTO) 9 % (12-44); MEAN CORPUSCULAR HEMOGLOBIN 31 pg (25-34); MEAN CORPUSCULAR HGB CONC 35 g/dL (32-36); MEAN CORPUSCULAR VOLUME 90 fL (80-99); MEAN PLATELET VOLUME 9.4 fL (9.0-12.2); MONOCYTES # (AUTO) 0.4 10^3/uL (0.0-1.0); MONOCYTES % (AUTO) 9 % (0-12); NEUTROPHILS % (AUTO) 79 % (42-75); PLATELET COUNT 198 10^3/uL (130-400); WHITE BLOOD COUNT 5.1 10^3/uL (4.3-11.0)
[2021-07-28 10:08] LABS: BILIRUBIN,TOTAL 0.6 MG/DL (0.1-1.0); CALCIUM 9.8 MG/DL (8.5-10.1); CREATININE SERUM 1.12 MG/DL (0.60-1.30); TOTAL PROTEIN 6.7 GM/DL (6.4-8.2)
[~2021-08-26] VITALS: Ht 193 cm; Wt 96.2 kg
[~2021-08-26 10:54] MED LIST changes: -CATHETER FLUSH 10 ML SYR IV PRN; +FAMOTIDINE 20MG/2ML IV (CANCER CTR) ONE; -HOLD METFORMIN - RECEIVED CONTRAST 20 ML VIAL IV SCH; -IOHEXOL 350 MG/ML 100 ML (OMNIPAQUE 350) VIAL IV ONE; -NS 100 ML (IVPB) BAG IV ONE; +NS IV 1000 ML (CANCER CTR) IV SCH; +diphenhydrAMINE 25 MG TAB (BENADRYL) CANCER CENTER PO ONE; +diphenhydrAMINE 50 MG/ML INJ (CANCER CENTER) ONE
[2021-08-26 11:22] LABS: BASOPHILS % (AUTO) 0 % (0-10); EOSINOPHILS # (AUTO) 0.1 10^3/uL (0.0-0.3); EOSINOPHILS % (AUTO) 2 % (0-10); HEMATOCRIT 41 % (40-54); HEMOGLOBIN 14.3 g/dL (13.3-17.7); LYMPHOCYTES # (AUTO) 0.4 10^3/uL (1.0-4.0); LYMPHOCYTES % (AUTO) 8 % (12-44); MEAN CORPUSCULAR HEMOGLOBIN 33 pg (25-34); MEAN CORPUSCULAR HGB CONC 35 g/dL (32-36); MEAN CORPUSCULAR VOLUME 94 fL (80-99); MONOCYTES # (AUTO) 0.4 10^3/uL (0.0-1.0); MONOCYTES % (AUTO) 7 % (0-12); NEUTROPHILS # (AUTO) 4.3 10^3/uL (1.8-7.8); NEUTROPHILS % (AUTO) 82 % (42-75); PLATELET COUNT 237 10^3/uL (130-400); WHITE BLOOD COUNT 5.2 10^3/uL (4.3-11.0)
[2021-08-26 11:39] LABS: ALBUMIN 4.5 GM/DL (3.2-4.5); BILIRUBIN,TOTAL 0.6 MG/DL (0.1-1.0); CALCIUM 9.9 MG/DL (8.5-10.1); CREATININE SERUM 1.04 MG/DL (0.60-1.30); MAGNESIUM 2.2 MG/DL (1.6-2.4); POTASSIUM 4.2 MMOL/L (3.6-5.0); TOTAL PROTEIN 7.2 GM/DL (6.4-8.2)
--- NOTE | 2021-08-26 15:29 | Diagnostic Imaging Report ---
INDICATION: Lung carcinoma. TECHNIQUE: The patient was administered 23.5 mCi technetium 99m MDP intravenously and whole-body imaging was performed after a 3 hour delay. COMPARISON: No prior bone scans are available for comparison. FINDINGS: There is normal uptake of activity by the axial and appendicular skeleton. There is uptake by the kidneys with excretion to the urinary bladder. No suspicious foci are identified to suggest osseous metastatic disease. IMPRESSION: No scintigraphic evidence of osseous metastatic disease. Dictated by: Dictated on workstation # [id number]
== END 2021-08-28 | disposition home or self-care (01) ==
LOC: ONC 10:54
PROVIDERS: ATTEND Internal Medicine Hematology & Oncology
DX: Z51.0 Encounter for antineoplastic radiation therapy (principal); C34.11 Malignant neoplasm of upper lobe, right bronchus or lung; J44.9 Chronic obstructive pulmonary disease, unspecified; F17.210 Nicotine dependence, cigarettes, uncomplicated
CPT/HCPCS: 36415; 36591; 77290; 77300; 77301; 77334; 77336; 77338; 77386; 77470; 78306; 80048; 80053; 83735; 85025; 96367; 96375; 96413; 96417; 96523; 99204; 99213; 99214

== ENCOUNTER → 2021-08-26 | Outpatient (CLI) | payer MEDICAID ==
[~2021-08-26] MED LIST changes: +CATHETER FLUSH 10 ML SYR IV PRN; +HOLD METFORMIN - RECEIVED CONTRAST 20 ML VIAL IV SCH; +IOHEXOL 350 MG/ML 100 ML (OMNIPAQUE 350) VIAL IV ONE; +NS 100 ML (IVPB) BAG IV ONE
[2021-08-26] MEDS: CATHETER FLUSH 10 ML SYR IV PRN ×2 (11:43→12:13)
--- NOTE | 2021-08-26 13:20 | Diagnostic Imaging Report ---
PROCEDURE: CT chest with contrast, CT abdomen with and without contrast. TECHNIQUE: Precontrast acquisitions were acquired through the abdomen. Multiple contiguous axial images were obtained through the chest and abdomen after administration of intravenous contrast. Auto Exposure Controls were utilized during the CT exam to meet ALARA standards for radiation dose reduction. INDICATION: Lung cancer, treatment finished three weeks ago. COMPARISON: Exam is compared to 05/27/2021. FINDINGS: CHEST: There has been marked improvement in consolidation of the right upper lobe. A largely gas-containing cavitary structure measuring a diameter of approximately 4 x 3.2 cm is present. No intraluminal fluid. Peripheral ground-glass opacities have largely resolved. I am uncertain if this is substantial improvement in pulmonary abscess and pneumonia or if it reflects substantial favorable changes in the treatment of the lung cancer. There has been no adverse interval development. A lower right paratracheal mediastinal node now is not pathologic in its appearance and measured only 9 mm x 6 mm, previously 2 cm x 1.8 cm. No pathological-appearing hilar or mediastinal lymph nodes at follow-up. Remaining pulmonary segments are clear. There is no effusion or pneumothorax. No chest wall pathology. ABDOMEN: The adrenals are negative. The liver is nonfocal and nonacute. The gallbladder is surgically absent. No pathological bile duct dilatation. Spleen and pancreas are unremarkable. There are bilateral nonobstructing renal calculi, stable. There is no hydroureteronephrosis. A right lower pole renal cyst is simple, benign, and chronic. There is no abdominal mesenteric or retroperitoneal adenopathy. A large air-containing nonobstructive and nonacute diverticulum off the proximal transverse duodenum is noted. There is no ascites. No suspicious bony lesion. IMPRESSION: CHEST: 1. Marked improvements with a relatively thin-walled cavitary lesion in the right upper lobe with some adjacent linear juxta-fissural scarring present. No air-fluid level. Findings may reflect substantial favorable improvements in neoplasm in response to treatment or resolving infectious etiology. 2. Resolution of mediastinal adenopathy. No effusion or adverse development. ABDOMEN: No findings of abdominal metastatic disease or acute pathology. Nonobstructing nephrolithiasis, incidental duodenal diverticulum, and previous cholecystectomy without complication apparent. Dictated by: Dictated on workstation # [id number]
== END ==
LOC: CARD 11:00
PROVIDERS: ATTEND Internal Medicine Hematology & Oncology
DX: C34.11 Malignant neoplasm of upper lobe, right bronchus or lung (principal)
CPT/HCPCS: 71260; 74170

== ENCOUNTER 2021-09-11 10:45 | Outpatient (RCR) | payer MEDICAID ==
[~2021-09-11 10:45] MED LIST changes: -FAMOTIDINE 20MG/2ML IV (CANCER CTR) ONE; -diphenhydrAMINE 25 MG TAB (BENADRYL) CANCER CENTER PO ONE; -diphenhydrAMINE 50 MG/ML INJ (CANCER CENTER) ONE
[2021-09-14] MEDS ORDERED: CLIN-144 PO (17:30)
== END 2021-09-29 | disposition home or self-care (01) ==
LOC: ONC 10:45
PROVIDERS: ATTEND Internal Medicine Hematology & Oncology
DX: Z51.11 Encounter for antineoplastic chemotherapy (principal); C34.11 Malignant neoplasm of upper lobe, right bronchus or lung; J44.9 Chronic obstructive pulmonary disease, unspecified; F17.210 Nicotine dependence, cigarettes, uncomplicated; Z92.3 Personal history of irradiation
CPT/HCPCS: 77336; 99213

== ENCOUNTER 2021-09-14 15:33 | Emergency (ER) | payer MEDICAID ==
[~2021-09-14] VITALS: Ht 198.1 cm; Wt 103.7 kg
[~2021-09-14 15:33] MED LIST changes: -NS IV 1000 ML (CANCER CTR) IV SCH
--- NOTE | 2021-09-14 16:11 | ED General ---
General Chief Complaint: General Problems/Pain Stated Complaint: SOB; ABD PAIN Source of Information: Patient, Old Records History of Present Illness Date Seen by Provider: Sep 14, 2021 Time Seen by Provider: 15:38 Initial Comments 51-year-old male presenting with complaints of sinus headache. He has had frontal sinus pressure and pain that radiates to the top and back of his head. This has been going on for few weeks and he just finished a course of a Z-Jose from Dr. Goncalves. He denies having any fever or chills. He has had some increased nasal and sinus drainage. He has been coughing and feeling a little more short of breath as well. He has a history of lung cancer and is scheduled to go back to stay September 16 for restarting chemotherapy and radiation treatments. He had slipped and fell on the snow on ice about 2 weeks ago and had pain to his right flank and side. He had fallen at least 2 times with the ice and snow a few weeks ago. Since that time he has had intermittent pain to the right flank but it has been worse over the last few days. He also has had some looser stools with bright red blood from irritation to his rectum. He denies having nausea or vomiting. He has had no black or tarry stool. He denies having any blood in his urine or pain with urination. He has continued to smoke and has a box of Camel Cigarettes with him. He states that his family encouraged him to come to the ED to be evaluated because they were concerned that he had a sinus infection, pneumonia, abdomen infection. He does not believe that he has COVID or flu but he is scheduled to start chemotherapy and radiation again on September 16. Because of that and having the sinus pressure and congestion he would like to know if he is positive for COVID so he can know if he can go for his cancer treatment on Wednesday or not. Timing/Duration: Other (worsening over the last few weeks) Severity: Moderate Modifying Factors: worse with Movement (makes right flank pain worse) Associated Systoms: No Chest Pain; Cough; No Diaphoresis, No Fever/Chills; Headaches (frontal sinus and radiates back top of his head to back of head); No Loss of Appetite; Malaise; No Nausea/Vomiting, No Rash, No Seizure; Shortness of Air (chronic but feels it is worse recently); No Syncope, No Weakness Allergies and Home Medications Allergies Coded Allergies: ofloxacin (Verified Allergy, Mild, 07/17/19) acetaminophen (Verified Allergy, Unknown, Hives, 03/13/20) gabapentin (Verified Allergy, Unknown, DELUSIONS, 05/13/21) Penicillins (Verified Adverse Reaction, Unknown, Pt has received Ceftriaxone in the past, 07/17/19) aspirin (Verified Adverse Reaction, Unknown, 07/17/19) latex (Verified Adverse Reaction, Unknown, 07/17/19) Uncoded Allergies: TAPE (Allergy, Mild, 07/17/09) Patient Home Medication List Home Medication List Reviewed: Yes Albuterol Sulfate (Proair Respiclick) 90 Mcg Aer.pow.ba, 2 PUFF IH Q4H PRN for SHORTNESS OF BREATH, (Reported) Entered as Reported by: JAVIER LUU on 06/04/21 165 Budesonide/Formoterol Fumarate (Budesonide-Formoterol 160-4.5) 10.2 Gm Hfa.aer.ad, 2 PUFF IH BID, (Reported) Entered as Reported by: JAVIER LUU on 06/04/21 165 Clindamycin HCl (Clindamycin HCl) 300 Mg Capsule, 300 MG PO Q6H Prescribed by: SERGE LIGHT on 09/14/21 1730 Morphine Sulfate (Morphine Sulfate IR Tablet) 15 Mg Tablet, 15 MG PO Q8H PRN for Lung Cancer pain in Chest Prescribed by: SERGE LIGHT on 05/31/21 0526 Pantoprazole Sodium (Protonix) 40 Mg Tablet.dr, 40 MG PO DAILY, (Reported) Entered as Reported by: CHAPO VENTURA on 06/20/21 1511 Tiotropium [place] (Spiriva Respimat 2.5MCG/ACTUATION) 4 Gm Mist.inhal, 1 PUFF IH DAILY, (Reported) Entered as Reported by: JAVIER LUU on 06/04/21 165 Review of Systems Review of Systems Constitutional: see HPI; No chills, No fever EENTM: hoarseness (chronic), nose congestion, other (post nasal drainage, frontal sinus pressure and congestion); No epistaxis Respiratory: cough, dyspnea on exertion; No hemoptysis, No orthopnea; short of breath; No stridor; wheezing Cardiovascular: No chest pain Gastrointestinal: see HPI, abdominal pain (RLQ and right flank pain for 2 weeks since slipping and falling on ice x 2) Genitourinary: No dysuria, No frequency, No hematuria Musculoskeletal: No muscle pain, No muscle cramps Skin: No change in color, No rash Psychiatric/Neurological: See HPI Past Ypmahyd-Xvclco-Keiecx Hx Patient Social History Tobacco Use?: Yes Tobacco type used: Cigarettes Smoking Status: Current Everyday Smoker Immunizations Up To Date Tetanus Booster (TDap): Unknown PED Vaccines UTD: Yes First/Initial COVID19 Vaccinat: not vacc Second COVID19 Vaccination Deonte: not vacc Third COVID19 Vaccination Date: not vacc Seasonal Allergies Seasonal Allergies: No Past Medical History Surgery/Hospitalization HX: lung cancer. Pneumonia Surgeries: Yes (hernia repair, left testicle injury, brain surgery, cardiac stent) Cardiac, Coronary Stent, Orthopedic Respiratory: Yes (lung ca) COPD Currently Using CPAP: No Currently Using BIPAP: No Cardiac: Yes (STENT) Coronary Artery Disease, Heart Attack Neurological: Yes Seizure Disorder Reproductive Disorders: No Sexually Transmitted Disease: No HIV/AIDS: No Genitourinary: Yes Kidney Stones Gastrointestinal: No Musculoskeletal: No Endocrine: No HEENT: Yes Loss of Vision: Bilateral Cancer: Yes Lung, Pancreatic Psychosocial: Yes ("anger issues") Integumentary: No Blood Disorders: No Adverse Reaction/Blood Tranf: No (N/A) Family Medical History Stroke Physical Exam Vital Signs Vital Signs - First Documented 09/14/21 17:35 Pulse Ox 97 Capillary Refill : Height, Weight, BMI Height: 6'4.00" Weight: 225lbs. 0.0oz. 102.964369ki; 25.66 BMI Method:Stated General Appearance: No Apparent Distress, WD/WN HEENT: PERRL/EOMI, TMs Normal, Moist Mucous Membranes, Other (pain with palpation over frontal sinuses) Neck: Full Range of Motion, Normal Inspection, Non Tender, Supple Respiratory: Chest Non Tender, No Accessory Muscle Use, No Respiratory Distress, Decreased Breath Sounds; No Rales, No Stridor; Wheezing Cardiovascular: Regular Rate, Rhythm, Normal Peripheral Pulses Gastrointestinal: Normal Bowel Sounds, No Pulsatile Mass, Soft; No Distended, No Guarding, No Rebound; Tenderness (right lower quadrant and flank tender to pa lpation but no rebound or guarding) Rectal: Deferred Extremity: Normal Capillary Refill, Normal Inspection Neurologic/Psychiatric: Alert, Oriented x3, Normal 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, 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 Norm as Tested Skin: Normal Color, Warm/Dry Progress/Results/Core Measures Suspected Sepsis SIRS Temperature: Pulse: Respiratory Rate: Blood Pressure / Mean: Results/Orders Lab Results Laboratory Tests Test 09/14/21 16:00 09/14/21 16:40 Range/Units Influenza Type A Antigen NEGATIVE NEGATIVE Influenza Type B Antigen NEGATIVE NEGATIVE Urine Color YELLOW Urine Clarity CLEAR Urine pH 6.5 5-9 Urine Specific Marshall 1.020 1.016-1.022 Urine Protein NEGATIVE NEGATIVE Urine Glucose (UA) NEGATIVE NEGATIVE Urine Ketones NEGATIVE NEGATIVE Urine Nitrite NEGATIVE NEGATIVE Urine Bilirubin NEGATIVE NEGATIVE Urine Urobilinogen 0.2 < = 1.0 MG/DL Urine Leukocyte Esterase NEGATIVE NEGATIVE Urine RBC (Auto) NEGATIVE NEGATIVE Urine RBC 2-5 H /HPF Urine WBC NONE /HPF Urine Squamous Epithelial Cells NONE /HPF Urine Crystals NONE /LPF Urine Bacteria TRACE /HPF Urine Casts NONE /LPF Urine Mucus LARGE H /LPF Urine Culture Indicated NO My Orders Orders - SERGE LIGHT MD Ct Head/Sinuses Wo (09/14/21 16:02) Ct Chest/Abdomen/Pelvis Wo (09/14/21 16:02) Ua Culture If Indicated (09/14/21 16:04) Covid 19 Inhouse Test (09/14/21 16:04) Influenza A & B Antigens (09/14/21 16:04) Isolation Central Supply Req (09/14/21 16:04) Clindamycin Capsule (Cleocin Capsule) (09/14/21 17:18) Medications Given in ED Current Medications Medications Dose Ordered Sig/Alis Route Start Time Stop Time Status Last Admin Dose Admin Clindamycin HCl 150 mg STK-MED ONCE PO 09/14/21 17:18 09/14/21 17:21 DC 09/14/21 17:23 150 MG Vital Signs/I&O 09/14/21 09/14/21 09/14/21 15:39 15:39 17:35 Temp 36.8 Pulse 105 84 Resp 17 15 B/P (MAP) 129/93 (105) 131/88 Pulse Ox 97 O2 Delivery Room Air Room Air Room Air Capillary Refill : Progress Note #1: Progress Note With his vital signs appearing stable and not having fevers or chills will obtain CT stewart of head and sinuses to look for sinusitis or masses, CT chest/abd/pelvis to look for pneumonia, kidney stone, colon mass/inflammation. He is unable to provide urine specimen here as he just urinated prior to arrival. Will give him po fluids and have him let us know when he can urinate. Will defer blood work with his vital signs looking stable and no fever or chills Progress Note #2: Progress Note On return from CT he has vital signs were rechecked and his O2 sat is still 100% on room air with a heart rate 89 bpm. His blood pressure is 120/80. The influenza swab was negative. His CT scan of the head and sinuses showed no acute frontal sinusitis but he did have some mild mucosal thickening of the ma xillary sinuses. He had periapical lucencies for dental abscess areas. Progress Note #3: Progress Note 1658 Urine shows trace amount of blood but no infection. CT chest/abdomen/pelvis shows stable scarring and cavitary lesion in lung. In the abdomen pelvis shows stable chronic kidney stones in bilateral kidneys but no signs of ureteral stones. No acute findings in the organs. No obstruction or blockage. Discussed results with the patient and will plan on covering him with an antib iotic for dental abscesses and have him follow-up with the clinic about his other symptoms. In terms of the right flank pain this may be more of a muscle pain for him since his scan did not show anything acute in his abdomen pelvis. Encourage fluids and hydration. Advise of the negative influenza results but that the COVID will still take a day or 2 to get back. After discussion with pt and his mother he did not want to take muscle relaxer for flank pain. Will start with clindamycin 300 mg po here and continue this with script for dental abscess and mucosal thickening. Encourage fluids and hydration since he has stones showing in kidneys. Check back with pcp for continued concerns as well as Oncology Diagnostic Imaging Diagonstic Imaging: CT Plain Films/CT/US/NM/MRI: facial bones, head Comments [facility] [place], [place] NAME: ALEA COYNE [facility] REC#: [id number] PT STATUS: REG ER : 1970 PHYSICIAN: SERGE LIGHT MD ADMIT DATE: 09/14/21/ER FS Draft Date of Exam:09/14/21 CT HEAD/SINUSES WO PROCEDURE: CT head without contrast and CT sinuses with contrast. TECHNIQUE: Routine noncontrast CT images were obtained through the head and sinuses. Coronal reformats of the sinuses were also performed and reviewed. Auto Exposure Controls were utilized during the CT exam to meet ALARA standards for radiation dose reduction. INDICATION: Frontal sinus headache. Sinus drainage. Head pain. COMPARISON: 04/25/2021. FINDINGS: CT HEAD: The ventricles and cortical sulci are age-appropriate. There is no midline shift or mass effect. No acute intracranial hemorrhage is seen. There is no CT evidence of acute territorial ischemia. The calvarium appears intact. CT SINUSES: There is minimal mucosal thickening in the maxillary sinuses. There is no significant mucosal thickening in the frontal, ethmoid or sphenoid sinuses. There are no fluid levels seen in the paranasal sinuses. The ostiomeatal complex, frontoethmoid drainage pathway and sphenoethmoid recesses appear to be patent. The nasal septum is slightly deviated to the left with a left-sided spur. The lacrimal duct is unremarkable. The globes are intact. The orbits are intact. There is a prominent left maxillary incisor periapical lucency. There is additional lucency along the right maxillary alveolar ridge. IMPRESSION: 1. No acute intracranial abnormality. 2. Minimal mucosal thickening in the maxillary sinuses. No fluid levels or findings of acute sinusitis are seen. 3. Periapical lucencies along the maxilla, could represent abscess. Consider dental consult. Dictated on workstation # [id number] Dict: 09/14/21 1630 Trans: 09/14/21 1639 [facility] [id number] Interpreted by: DUGLAS OLEA MD Electronically signed by: Reviewed: Reviewed by Me Diagonstic Imaging: CT Plain Films/CT/US/NM/MRI: chest, abdomen, pelvis Comments NAME: ALEA COYNE [facility] REC#: [id number] PT STATUS: REG ER : 1970 PHYSICIAN: SERGE LIGHT MD ADMIT DATE: 09/14/21/ER FS Draft Date of Exam:09/14/21 CT CHEST/ABDOMEN/PELVIS WO PROCEDURE: CT chest, abdomen and pelvis without contrast. TECHNIQUE: Multiple contiguous axial images were obtained through the chest, abdomen, and pelvis without the use of intravenous contrast. Auto Exposure Controls were utilized during the CT exam to meet ALARA standards for radiation dose reduction. INDICATION: Shortness of breath, lung cancer, right flank pain, abdominal pain, Covid patient of interest. COMPARISON: 08/26/2021. FINDINGS: CT CHEST: The heart is normal in size. There is no pericardial effusion. No mediastinal adenopathy is seen. The left-sided Port-A-Cath is looped in the left subclavian, and then returns with the tip in the left innominate. This is stable since the prior study. There is no pleural effusion and there is no pneumothorax. There is a band of thick scar tissue in the right upper lobe with a cavitary lesion which measures up to 3.1 cm in diameter. There is no new nodularity and no new masses are seen. No consolidation is seen. No acute osseous abnormality is identified. CT ABDOMEN/PELVIS: The liver demonstrates no focal lesion. Cholecystectomy clips are noted. The spleen appears normal. The pancreas is normal. The adrenal glands appear normal. The kidneys demonstrate calculi, bilaterally, which are nonobstructing. The largest is on the right measuring 8 mm. There is a low-density lesion in the left kidney which measures 1.8 cm, is consistent with a cyst and is stable since the prior exam. The bowel loops are nondistended without obstruction. The appendix is normal. No adenopathy is seen. The aorta is normal in caliber. No acute osseous abnormality is seen. There are bilateral L5 pars defects. IMPRESSION: 1. Chronic scarring and cavitary lesion in the right upper lobe. This appears stable and no new mass or consolidation is seen. 2. The left Port-A-Cath is looped in the subclavian with the tip in the left innominate, stable since the prior exam. 3. Nonobstructing nephrolithiasis, bilaterally. No obstructing calculi or hydronephrosis. Dictated on workstation # [id number] Dict: 09/14/21 1643 Trans: 09/14/21 1656 [facility] [id number] Interpreted by: DUGLAS OLEA MD Electronically signed by: Reviewed: Reviewed by Me Departure Impression Primary Impression: Person under investigation for severe acute respiratory syndrome coronavirus 2 (SARS-CoV-2) infection Additional Impressions: Frontal sinus pain Right flank pain Shortness of breath Dental abscess Disposition: 01 HOME, SELF-CARE Condition: Stable Departure-Patient Inst. Decision time for Depature: 17:03 Referrals: DARREN GONCALVES MD (PCP/Family) Primary Care Physician Patient Instructions: Tooth Abscess ED, Flank Pain ED, Shortness of Breath, Adult ED, COVID-19 Tests, COVID-19 ED Add. Discharge Instructions: Take antibiotic to help treat for dental abscesses. Stay well-hydrated and drink plenty of fluids to help loosen and congestion and help it drain better. For the flank pain this appears to be more musculoskeletal in nature. Try muscle relaxer to help with this and you could alternate ice and heat to the area as well. All discharge instructions reviewed with patient and/or family. Voiced understanding. Scripts Clindamycin HCl (Clindamycin HCl) 300 Mg Capsule 300 MG PO Q6H for dental abscess for 10 Days, #40 CAP 0 Refills Prov: SERGE LIGHT MD 09/14/21 SERGE LIGHT MD Sep 14, 2021 16:11
--- NOTE | 2021-09-14 16:40 | Diagnostic Imaging Report ---
PROCEDURE: CT head without contrast and CT sinuses with contrast. TECHNIQUE: Routine noncontrast CT images were obtained through the head and sinuses. Coronal reformats of the sinuses were also performed and reviewed. Auto Exposure Controls were utilized during the CT exam to meet ALARA standards for radiation dose reduction. INDICATION: Frontal sinus headache. Sinus drainage. Head pain. COMPARISON: 04/25/2021. FINDINGS: CT HEAD: The ventricles and cortical sulci are age-appropriate. There is no midline shift or mass effect. No acute intracranial hemorrhage is seen. There is no CT evidence of acute territorial ischemia. The calvarium appears intact. CT SINUSES: There is minimal mucosal thickening in the maxillary sinuses. There is no significant mucosal thickening in the frontal, ethmoid or sphenoid sinuses. There are no fluid levels seen in the paranasal sinuses. The ostiomeatal complex, frontoethmoid drainage pathway and sphenoethmoid recesses appear to be patent. The nasal septum is slightly deviated to the left with a left-sided spur. The lacrimal duct is unremarkable. The globes are intact. The orbits are intact. There is a prominent left maxillary incisor periapical lucency. There is additional lucency along the right maxillary alveolar ridge. IMPRESSION: 1. No acute intracranial abnormality. 2. Minimal mucosal thickening in the maxillary sinuses. No fluid levels or findings of acute sinusitis are seen. 3. Periapical lucencies along the maxilla, could represent abscess. Consider dental consult. Dictated by: Dictated on workstation # [id number]
[2021-09-14 16:50] LABS: BACTERIA,URINE TRACE /HPF; BILIRUBIN,URINE NEGATIVE (NEGATIVE); CLARITY,URINE CLEAR; COLOR,URINE YELLOW; GLUCOSE, URINE (UA) NEGATIVE (NEGATIVE); KETONES,URINE NEGATIVE (NEGATIVE); LEUKOCYTE ESTERASE ,URINE NEGATIVE (NEGATIVE); NITRITE,URINE NEGATIVE (NEGATIVE); PH,URINE 6.5 (5-9); PROTEIN,URINE NEGATIVE (NEGATIVE)
--- NOTE | 2021-09-14 16:57 | Diagnostic Imaging Report ---
PROCEDURE: CT chest, abdomen and pelvis without contrast. TECHNIQUE: Multiple contiguous axial images were obtained through the chest, abdomen, and pelvis without the use of intravenous contrast. Auto Exposure Controls were utilized during the CT exam to meet ALARA standards for radiation dose reduction. INDICATION: Shortness of breath, lung cancer, right flank pain, abdominal pain, Covid patient of interest. COMPARISON: 08/26/2021. FINDINGS: CT CHEST: The heart is normal in size. There is no pericardial effusion. No mediastinal adenopathy is seen. The left-sided Port-A-Cath is looped in the left subclavian, and then returns with the tip in the left innominate. This is stable since the prior study. There is no pleural effusion and there is no pneumothorax. There is a band of thick scar tissue in the right upper lobe with a cavitary lesion which measures up to 3.1 cm in diameter. There is no new nodularity and no new masses are seen. No consolidation is seen. No acute osseous abnormality is identified. CT ABDOMEN/PELVIS: The liver demonstrates no focal lesion. Cholecystectomy clips are noted. The spleen appears normal. The pancreas is normal. The adrenal glands appear normal. The kidneys demonstrate calculi, bilaterally, which are nonobstructing. The largest is on the right measuring 8 mm. There is a low-density lesion in the left kidney which measures 1.8 cm, is consistent with a cyst and is stable since the prior exam. The bowel loops are nondistended without obstruction. The appendix is normal. No adenopathy is seen. The aorta is normal in caliber. No acute osseous abnormality is seen. There are bilateral L5 pars defects. IMPRESSION: 1. Chronic scarring and cavitary lesion in the right upper lobe. This appears stable and no new mass or consolidation is seen. 2. The left Port-A-Cath is looped in the subclavian with the tip in the left innominate, stable since the prior exam. 3. Nonobstructing nephrolithiasis, bilaterally. No obstructing calculi or hydronephrosis. Dictated by: Dictated on workstation # [id number]
[2021-09-14] MEDS ORDERED: CLINDAMYCIN 150 MG (CLEOCIN) CAP PO ONE (17:18)
[2021-09-14] MEDS ORDERED: CLIN-144 PO (17:30)
[2021-09-14 17:35] VITALS: BP 131/88
== END 2021-09-14 17:35 | disposition home or self-care (01) ==
LOC: EDUNIT# 15:33 → ER FS 15:35
DX: U07.1 COVID-19 (principal); J32.1 Chronic frontal sinusitis; R10.31 Right lower quadrant pain; K04.7 Periapical abscess without sinus; J44.9 Chronic obstructive pulmonary disease, unspecified; I25.10 Atherosclerotic heart disease of native coronary artery without angina pectoris; F17.210 Nicotine dependence, cigarettes, uncomplicated
CPT/HCPCS: 70450; 70486; 71250; 74176; 81000; 87636; 87804

== ENCOUNTER → 2021-11-28 | Outpatient (CLI) | payer MEDICAID | LOC: CARD 14:30 | PROVIDERS: ATTEND Internal Medicine Cardiovascular Disease | DX: I11.9 Hypertensive heart disease without heart failure (principal); I35.1 Nonrheumatic aortic (valve) insufficiency | CPT/HCPCS: 93306 ==

== ENCOUNTER 2022-01-31 12:36 | Emergency (ER) | payer MEDICAID ==
[2022-01-31 12:40] VITALS: BP 139/79
[2022-01-31] MEDS ORDERED: NS IV 1000 ML 1,000 ML IV STA (12:53)
[2022-01-31] MEDS ORDERED: ONDANSETRON 4 MG/2 ML (SDV) Z0FRAN IVP STA (12:53)
[2022-01-31] MEDS ORDERED: KETOROLAC 30 MG/ML VIAL IVP STA (12:53)
[2022-01-31] MEDS ORDERED: fentaNYL INJ 100 MCG/2 ML AMP IVP STA (12:53)
--- NOTE | 2022-01-31 13:22 | ED General ---
General Chief Complaint: Abdominal/GI Problems Stated Complaint: RT GROIN PAIN Nursing Triage Note: Patient presents to the ED with c/o right lower abdominal pain. States pain is relieved when he compresses the area. Reports pain began 3 days ago. States pain was so severe he fell and hit his head. Source of Information: Patient, Family (Mother) History of Present Illness Date Seen by Provider: Jan 31, 2022 Time Seen by Provider: 12:38 Initial Comments 52-year-old male presenting with complaints of right lower quadrant abdominal pain for the last several days. He states it feels better when he puts pressure and when sitting on his abdomen. He denies any pain with urination. He has had looser stool and noticed today that he had blood when he wiped and felt like the stool was red color. He had nausea and vomiting because of the pain being so bad. He also had passed out because of the pain and vomiting this morning. When that happened he hit the top of his head. Now he complains of a headache. He has had no drainage from his nose or ears. There is no change in his vision. He denies any fever, chills, pain with urination, blood in his urine. He believes that he had his appendix removed when they did surgery to remove his gallbladder back when [facility] was in [place]. Timing/Duration: 2-3 Days Severity: Severe Modifying Factors: improves with Other (Pressing on his right lower quadrant helps the pain.) Associated Systoms: No Chest Pain; Cough (chronic); No Diaphoresis, No Fever/Chills; Headaches (Since he fell and hit his head); No Loss of Appetite, No Malaise; Nausea/Vomiting; No Rash, No Seizure; Shortness of Air (Chronic); No Syncope, No Weakness Allergies and Home Medications Allergies Coded Allergies: ofloxacin (Verified Allergy, Mild, 07/17/19) acetaminophen (Verified Allergy, Unknown, Hives, 03/13/20) gabapentin (Verified Allergy, Unknown, DELUSIONS, 05/13/21) Penicillins (Verified Adverse Reaction, Unknown, Pt has received Ceftriaxone in the past, 07/17/19) aspirin (Verified Adverse Reaction, Unknown, 07/17/19) latex (Verified Adverse Reaction, Unknown, 07/17/19) Uncoded Allergies: TAPE (Allergy, Mild, 07/17/09) Patient Home Medication List Home Medication List Reviewed: Yes Albuterol Sulfate (Proair Respiclick) 90 Mcg Aer.pow.ba, 2 PUFF IH Q4H PRN for SHORTNESS OF BREATH, (Reported) Entered as Reported by: JAVIER LUU on 06/04/211655 Budesonide/Formoterol Fumarate (Budesonide-Formoterol 160-4.5) 10.2 Gm Hfa.aer.ad, 2 PUFF IH BID, (Reported) Entered as Reported by: JAVIER LUU on 06/04/21 165 Clindamycin HCl (Clindamycin HCl) 300 Mg Capsule, 300 MG PO Q6H Prescribed by: SERGE LIGHT on 09/14/21 1730 Dicyclomine HCl (Dicyclomine HCl) 20 Mg Tablet, 20 MG PO QID Prescribed by: SERGE LIGHT on 01/31/22 1449 Morphine Sulfate (Morphine Sulfate IR Tablet) 15 Mg Tablet, 15 MG PO Q8H PRN for Lung Cancer pain in Chest Prescribed by: SERGE LIGHT on 05/31/21 0526 Ondansetron (Ondansetron Odt) 4 Mg Tab.rapdis, 4 MG PO Q6H PRN for NAUSEA/VOMITING Prescribed by: SERGE LIGHT on 01/31/22 1449 Pantoprazole Sodium (Protonix) 40 Mg Tablet.dr, 40 MG PO DAILY, (Reported) Entered as Reported by: CHAPO VENTURA on 06/20/21 1511 Sulfamethoxazole/Trimethoprim (Bactrim Ds Tablet) 1 Each Tablet, 1 EACH PO BID Prescribed by: SERGE LIGHT on 01/31/22 1449 Tiotropium [place] (Spiriva Respimat 2.5MCG/ACTUATION) 4 Gm Mist.inhal, 1 PUFF IH DAILY, (Reported) Entered as Reported by: JAVIER LUU on 06/04/211655 Review of Systems Review of Systems Constitutional: No chills, No fever EENTM: No ear discharge, No hearing loss, No ear pain, No blurred vision, No vision loss, No epistaxis, No nose congestion Respiratory: see HPI, cough, short of breath (chronic) Cardiovascular: No chest pain Gastrointestinal: see HPI Genitourinary: see HPI Musculoskeletal: no symptoms reported Skin: No change in color, No rash Psychiatric/Neurological: Anxiety, Headache Hematologic/Lymphatic: Denies Blood Clots, Denies Easy Bleeding, Denies Easy Bruising Past Kljupiw-Pqmseh-Fzervt Hx Patient Social History Tobacco Use?: Yes Tobacco type used: Cigarettes Smoking Status: Current Everyday Smoker Substance use?: No Alcohol Use?: No Pt feels they are or have been: No Immunizations Up To Date Tetanus Booster (TDap): Unknown PED Vaccines UTD: Yes First/Initial COVID19 Vaccinat: not vacc Second COVID19 Vaccination Deonte: not vacc Third COVID19 Vaccination Date: not vacc Seasonal Allergies Seasonal Allergies: No Past Medical History Surgery/Hospitalization HX: lung cancer. Pneumonia; cholecysectomy Surgeries: Yes (hernia repair, left testicle injury, brain surgery, cardiac stent) Cardiac, Coronary Stent, Orthopedic Respiratory: Yes (lung ca) COPD Currently Using CPAP: No Currently Using BIPAP: No Cardiac: Yes (STENT) Coronary Artery Disease, Heart Attack Neurological: Yes Seizure Disorder Reproductive Disorders: No Sexually Transmitted Disease: No HIV/AIDS: No Genitourinary: Yes Kidney Stones Gastrointestinal: No Musculoskeletal: No Endocrine: No HEENT: Yes Loss of Vision: Bilateral Cancer: Yes Lung, Pancreatic Psychosocial: Yes ("anger issues") Integumentary: No Blood Disorders: No Adverse Reaction/Blood Tranf: No (N/A) Family Medical History Stroke Physical Exam Vital Signs Vital Signs - First Documented 01/31/22 12:40 Temp 36.4 Pulse 97 Resp 18 B/P (MAP) 139/79 (99) Pulse Ox 95 O2 Delivery Room Air Capillary Refill : Less Than 3 Seconds Height, Weight, BMI Height: 6'4.00" Weight: 225lbs. 0.0oz. 102.831045mf; 26.00 BMI Method:Stated General Appearance: No Apparent Distress, Chronically ill HEENT: PERRL/EOMI, TMs Normal, Normal ENT Inspection, Pharynx Normal, Moist Mucous Membranes, Other (Negative schulz sign, no raccoon sign, negative CSF otorrhea, negative CSF rhinorrhea) Neck: Full Range of Motion, Normal Inspection, Non Tender, Supple Respiratory: Chest Non Tender, No Accessory Muscle Use, No Respiratory Distress, Decreased Breath Sounds Cardiovascular: Regular Rate, Rhythm, Normal Peripheral Pulses Gastrointestinal: Normal Bowel Sounds, No Pulsatile Mass, Non Tender (States he has pain in the right lower quadrant but palpating his abdomen makes it feel better.), Soft Rectal: Deferred Extremity: Normal Capillary Refill, Normal Inspection, No Calf Tenderness, No Pedal Edema Neurologic/Psychiatric: Alert, Oriented x3 Skin: Warm/Dry, Pallor Progress/Results/Core Measures Suspected Sepsis SIRS Temperature: Pulse: 97 Respiratory Rate: 18 Laboratory Tests 01/31/22 13:31: White Blood Count 4.7 Blood Pressure 139 /79 Mean: 99 Laboratory Tests 01/31/22 13:31: Creatinine 1.04, INR Comment 0.9, Platelet Count 152, Total Bilirubin 0.3 Results/Orders Lab Results Laboratory Tests Test 01/31/22 13:15 01/31/22 13:31 Range/Units Urine Color YELLOW Urine Clarity CLEAR Urine pH 6.0 5-9 Urine Specific [place] >=1.030 1.016-1.022 Urine Protein NEGATIVE NEGATIVE Urine Glucose (UA) NEGATIVE NEGATIVE Urine Ketones NEGATIVE NEGATIVE Urine Nitrite NEGATIVE NEGATIVE Urine Bilirubin NEGATIVE NEGATIVE Urine Urobilinogen 0.2 < = 1.0 MG/DL Urine Leukocyte Esterase NEGATIVE NEGATIVE Urine RBC (Auto) NEGATIVE NEGATIVE Urine RBC 5-10 H /HPF Urine WBC 5-10 H /HPF Urine Crystals NONE /LPF Urine Bacteria FEW H /HPF Urine Casts NONE /LPF Urine Mucus LARGE H /LPF Urine Culture Indicated YES White Blood Count 4.7 4.3-11.0 10^3/uL Red Blood Count 4.37 4.30-5.52 10^6/uL Hemoglobin 14.6 13.3-17.7 g/dL Hematocrit 40 40-54 % Mean Corpuscular Volume 92 80-99 fL Mean Corpuscular Hemoglobin 33 25-34 pg Mean Corpuscular Hemoglobin Concent 36 32-36 g/dL Red Cell Distribution Width 12.3 10.0-14.5 % Platelet Count 152 130-400 10^3/uL Mean Platelet Volume 9.3 9.0-12.2 fL Immature Granulocyte % (Auto) 0 % Neutrophils (%) (Auto) 79 H 42-75 % Lymphocytes (%) (Auto) 9 L 12-44 % Monocytes (%) (Auto) 9 0-12 % Eosinophils (%) (Auto) 2 0-10 % Basophils (%) (Auto) 1 0-10 % Neutrophils # (Auto) 3.7 1.8-7.8 10^3/uL Lymphocytes # (Auto) 0.4 L 1.0-4.0 10^3/uL Monocytes # (Auto) 0.4 0.0-1.0 10^3/uL Eosinophils # (Auto) 0.1 0.0-0.3 10^3/uL Basophils # (Auto) 0.0 0.0-0.1 10^3/uL Immature Granulocyte # (Auto) 0.0 0.0-0.1 10^3/uL Prothrombin Time 12.9 12.2-14.7 SEC INR Comment 0.9 0.8-1.4 Activated Partial Thromboplast Time 30 24-35 SEC Sodium Level 139 135-145 MMOL/L Potassium Level 4.0 3.6-5.0 MMOL/L Chloride Level 106 98-107 MMOL/L Carbon Dioxide Level 23 21-32 MMOL/L Anion Gap 10 5-14 MMOL/L Blood Urea Nitrogen 13 7-18 MG/DL Creatinine 1.04 0.60-1.30 MG/DL Estimat Glomerular Filtration Rate 86 BUN/Creatinine Ratio 13 Glucose Level 119 H 70-105 MG/DL Calcium Level 9.6 8.5-10.1 MG/DL Corrected Calcium 9.5 8.5-10.1 MG/DL Total Bilirubin 0.3 0.1-1.0 MG/DL Aspartate Amino Transf (AST/SGOT) 13 5-34 U/L Alanine Aminotransferase (ALT/SGPT) 15 0-55 U/L Alkaline Phosphatase 81 40-136 U/L Total Protein 6.4 6.4-8.2 GM/DL Albumin 4.1 3.2-4.5 GM/DL Lipase 26 8-78 U/L My Orders Orders - SERGE LIGHT MD Comprehensive Metabolic Panel (01/31/22 12:53) Lipase (01/31/22 12:53) Ua Culture If Indicated (01/31/22 12:53) Ed Iv/Invasive Line Start (01/31/22 12:53) Cbc With Automated Diff (01/31/22 12:53) Ct Abdomen/Pelvis Wo (01/31/22 12:53) Implanted Port: Access (01/31/22 12:53) Protime With Inr (01/31/22 12:53) Partial Thromboplastin Time (01/31/22 12:53) Ns Iv 1000 Ml (Sodium Chloride 0.9%) (01/31/22 12:53) Ondansetron Injection (Zofran Injectio (01/31/22 12:53) Ketorolac Injection (Toradol Injection) (01/31/22 12:53) Fentanyl Inj (Sublimaze Injection) (01/31/22 12:53) Urine Culture (01/31/22 13:15) Ceftriaxone 1 Gm Pre-Mix (Rocephin 1 Gm (01/31/22 14:15) Vital Signs/I&O 01/31/22 12:40 Temp 36.4 Pulse 97 Resp 18 B/P (MAP) 139/79 (99) Pulse Ox 95 O2 Delivery Room Air Capillary Refill : Less Than 3 Seconds Blood Pressure Mean: 99 Progress Note #1: Progress Note Check basic labs and urinalysis. CT scan of his abdomen and pelvis without contrast. Evaluate for diverticulitis, colitis, kidney stones. Give IV fluids for hydration, Zofran for nausea, fentanyl for pain, Toradol for pain. Progress Note #2: Progress Note Patient has kidney stones in bilateral kidneys but no ureteral stones. His appendix appears normal he has no enlarged lymph nodes. There is no signs of diverticulitis or colitis. There is nothing on CT to account for his right lower quadrant abdominal pain. Progress Note #3: Progress Note Blood work is all stable without acute significant abnormality to account for his pain. His urine does show some signs of infection. Will treat with Rocephin here and then discharged on Bactrim DS. Also try using dicyclomine or Bentyl to help with pain. Encourage fluids and hydration. If not having improvement he may need to follow-up through his doctor and have a colonoscopy or other testing to look at his colon. Diagnostic Imaging Diagonstic Imaging: CT Plain Films/CT/US/NM/MRI: abdomen, pelvis Comments NAME: ALEA COYNE [facility] REC#: [id number] PT STATUS: REG ER : 1970 PHYSICIAN: SERGE LIGHT MD ADMIT DATE: 01/31/22/ER FS Draft Date of Exam:01/31/22 CT ABDOMEN/PELVIS WO EXAMINATION: CT abdomen and pelvis without contrast. TECHNIQUE: Multiple contiguous axial images were obtained through the abdomen and pelvis without the use of intravenous contrast. All CT scans use one or more of the following dose optimizing techniques: automated exposure control, MA and/or KvP adjustment based on patient size and exam type or iterative reconstruction. HISTORY: Right lower quadrant pain. COMPARISON: 09/14/2019 FINDINGS: Limited views of the lower thorax are unremarkable. The liver is normal without focal lesion. There is no biliary ductal dilation. Gallbladder is surgically absent. Pancreas is normal. Spleen is normal. Adrenal glands are normal. There are unchanged bilateral nonobstructing stones measuring 6 mm on the right and 3 mm on the left. No suspicious renal lesions. There is a small cyst in left kidney. There is no hydronephrosis. Urinary bladder is decompressed. There is a small fat-containing right inguinal hernia. Bowel is normal in caliber without obstruction or inflammation. There is a small fat-containing umbilical hernia. The appendix is normal. No free fluid or air. No abdominal or pelvic lymphadenopathy. Aorta is normal in caliber without aneurysm. There are no suspicious osseus lesions. There are bilateral L5 pars defects. IMPRESSION: 1. Unchanged bilateral nonobstructing renal stones. Dictated on workstation # [id number] Dict: 01/31/22 1325 Trans: 01/31/22 1332 CV [id number] Interpreted by: ALEA ALVES MD Electronically signed by: Reviewed: Reviewed by Me Departure Impression Primary Impression: Cystitis without hematuria Additional Impressions: Right lower quadrant abdominal pain Headache Qualified Codes: G44.319 - Acute post-traumatic headache, not intractable Nausea and vomiting in adult Bright red blood per rectum Dehydration Minor closed head injury Disposition: HOME, SELF-CARE Condition: Stable Departure-Patient Inst. Decision time for Depature: 14:40 Referrals: DARREN CARNEY MD (PCP/Family) Primary Care Physician Patient Instructions: Bloody Stools, Adult ED, Urinary Tract Infection, Adult ED, Dehydration, Adult ED, Abdominal Pain, Adult ED Add. Discharge Instructions: Stay well-hydrated and drink plenty of fluids. Follow a liquid diet for the next 12 to 24 hours. Advance to bland and then regular diet as tolerated. Try taking Bentyl or dicyclomine to help with pain and inflammation in the abdomen. Take the full course of antibiotics to treat for urine infection. Check back with your regular provider and cancer doctor this week if you are having continued pain and problems. They may need to set you up to have a colonoscopy or other test to look into your colon in more detail if you are c ontinuing to see blood in your stool and having pain. All discharge instructions reviewed with patient and/or family. Voiced understanding. Scripts Ondansetron (Ondansetron Odt) 4 Mg Tab.rapdis 4 MG PO Q6H PRN for NAUSEA/VOMITING for 5 Days, #20 TAB 0 Refills Prov: SERGE LIGHT MD 01/31/22 Sulfamethoxazole/Trimethoprim (Bactrim Ds Tablet) 1 Each Tablet 1 EACH PO BID for UTI for 7 Days, #14 TAB 0 Refills Prov: SERGE LIGHT MD 01/31/22 Dicyclomine HCl (Dicyclomine HCl) 20 Mg Tablet 20 MG PO QID for Abdominal Pain for 7 Days, #28 TAB 0 Refills Prov: SERGE LIGHT MD 01/31/22 SERGE LIGHT MD Jan 31, 2022 13:22
[2022-01-31 13:24] LABS: BILIRUBIN,URINE NEGATIVE (NEGATIVE); CLARITY,URINE CLEAR; COLOR,URINE YELLOW; GLUCOSE, URINE (UA) NEGATIVE (NEGATIVE); KETONES,URINE NEGATIVE (NEGATIVE); LEUKOCYTE ESTERASE ,URINE NEGATIVE (NEGATIVE); NITRITE,URINE NEGATIVE (NEGATIVE); PROTEIN,URINE NEGATIVE (NEGATIVE)
[2022-01-31 13:27] LABS: BACTERIA,URINE FEW /HPF
--- NOTE | 2022-01-31 13:32 | Diagnostic Imaging Report ---
EXAMINATION: CT abdomen and pelvis without contrast. TECHNIQUE: Multiple contiguous axial images were obtained through the abdomen and pelvis without the use of intravenous contrast. All CT scans use one or more of the following dose optimizing techniques: automated exposure control, MA and/or KvP adjustment based on patient size and exam type or iterative reconstruction. HISTORY: Right lower quadrant pain. COMPARISON: 09/14/2019 FINDINGS: Limited views of the lower thorax are unremarkable. The liver is normal without focal lesion. There is no biliary ductal dilation. Gallbladder is surgically absent. Pancreas is normal. Spleen is normal. Adrenal glands are normal. There are unchanged bilateral nonobstructing stones measuring 6 mm on the right and 3 mm on the left. No suspicious renal lesions. There is a small cyst in left kidney. There is no hydronephrosis. Urinary bladder is decompressed. There is a small fat-containing right inguinal hernia. Bowel is normal in caliber without obstruction or inflammation. There is a small fat-containing umbilical hernia. The appendix is normal. No free fluid or air. No abdominal or pelvic lymphadenopathy. Aorta is normal in caliber without aneurysm. There are no suspicious osseus lesions. There are bilateral L5 pars defects. IMPRESSION: 1. Unchanged bilateral nonobstructing renal stones. Dictated by: Dictated on workstation # [id number]
[2022-01-31 13:38] LABS: BASOPHILS % (AUTO) 1 % (0-10); EOSINOPHILS # (AUTO) 0.1 10^3/uL (0.0-0.3); EOSINOPHILS % (AUTO) 2 % (0-10); HEMATOCRIT 40 % (40-54); HEMOGLOBIN 14.6 g/dL (13.3-17.7); LYMPHOCYTES # (AUTO) 0.4 10^3/uL (1.0-4.0); LYMPHOCYTES % (AUTO) 9 % (12-44); MEAN CORPUSCULAR HEMOGLOBIN 33 pg (25-34); MEAN CORPUSCULAR HGB CONC 36 g/dL (32-36); MEAN CORPUSCULAR VOLUME 92 fL (80-99); MEAN PLATELET VOLUME 9.3 fL (9.0-12.2); MONOCYTES # (AUTO) 0.4 10^3/uL (0.0-1.0); MONOCYTES % (AUTO) 9 % (0-12); NEUTROPHILS # (AUTO) 3.7 10^3/uL (1.8-7.8); NEUTROPHILS % (AUTO) 79 % (42-75); PLATELET COUNT 152 10^3/uL (130-400); WHITE BLOOD COUNT 4.7 10^3/uL (4.3-11.0)
[2022-01-31 13:48] LABS: INR 0.9 (0.8-1.4); PROTHROMBIN TIME PATIENT 12.9 SEC (12.2-14.7)
[2022-01-31 14:00] LABS: ALBUMIN 4.1 GM/DL (3.2-4.5); BILIRUBIN,TOTAL 0.3 MG/DL (0.1-1.0); CALCIUM 9.6 MG/DL (8.5-10.1); CREATININE SERUM 1.04 MG/DL (0.60-1.30); TOTAL PROTEIN 6.4 GM/DL (6.4-8.2)
[2022-01-31] MEDS ORDERED: cefTRIAXone 1 GM PRE-MIX 50 ML IV STA (14:15)
[2022-01-31] MEDS ORDERED: DICY20TA PO (14:49)
[2022-01-31] MEDS ORDERED: ONDA4TAB11 PO (14:49)
[2022-01-31] MEDS ORDERED: SULF1TAB38 PO (14:49)
== END 2022-01-31 15:05 | disposition home or self-care (01) ==
LOC: EDUNIT# 12:36 → ER FS 12:37
DX: S09.90XA Unspecified injury of head, initial encounter (principal); G44.319 Acute post-traumatic headache, not intractable; K62.5 Hemorrhage of anus and rectum; E86.0 Dehydration; N30.00 Acute cystitis without hematuria; N20.0 Calculus of kidney; Z90.49 Acquired absence of other specified parts of digestive tract; Z87.19 Personal history of other diseases of the digestive system; Z87.442 Personal history of urinary calculi; Z28.310 Unvaccinated for COVID-19; W19.XXXA Unspecified fall, initial encounter
CPT/HCPCS: 36415; 74176; 80053; 81000; 83690; 85025; 85610; 85730; 87088

== ENCOUNTER → 2022-02-20 | Outpatient (CLI) | payer MEDICAID ==
[~2022-02-20] MED LIST changes: +DICY20TA PO; +ONDA4TAB11 PO
--- NOTE | 2022-02-20 15:24 | Diagnostic Imaging Report ---
INDICATION: Lung cancer. TECHNIQUE: Patient was administered 25.2 mCi technetium-99m MDP intravenously, and whole body imaging was performed after a three-hour delay. COMPARISON: Correlation is made with prior bone scan from 08/26/2021. FINDINGS: Bone scan remains stable. Normal physiologic activity is seen. No suspicious foci are identified to suggest osseous metastatic disease. IMPRESSION: Stable whole body bone scan without evidence of osseous metastatic disease. Dictated by: Dictated on workstation # [id number]
== END ==
LOC: CARD 10:15
PROVIDERS: ATTEND Internal Medicine Hematology & Oncology
DX: Z51.11 Encounter for antineoplastic chemotherapy (principal); C34.11 Malignant neoplasm of upper lobe, right bronchus or lung
CPT/HCPCS: 78306; A9503

== ENCOUNTER 2022-03-07 19:26 | Emergency (ER) | payer MEDICAID ==
[~2022-03-07] VITALS: Ht 197 cm; Wt 109.0 kg
[2022-03-07] MEDS ORDERED: ONDANSETRON 4 MG/2 ML (SDV) Z0FRAN IVP STA (19:44)
[2022-03-07] MEDS ORDERED: NS IV 1000 ML 1,000 ML IV STA (19:44)
[2022-03-07 19:50] LABS: BASOPHILS % (AUTO) 0 % (0-10); EOSINOPHILS # (AUTO) 0.1 10^3/uL (0.0-0.3); EOSINOPHILS % (AUTO) 1 % (0-10); HEMATOCRIT 43 % (40-54); HEMOGLOBIN 15.3 g/dL (13.3-17.7); LYMPHOCYTES # (AUTO) 0.5 10^3/uL (1.0-4.0); LYMPHOCYTES % (AUTO) 9 % (12-44); MEAN CORPUSCULAR HEMOGLOBIN 33 pg (25-34); MEAN CORPUSCULAR HGB CONC 36 g/dL (32-36); MEAN CORPUSCULAR VOLUME 92 fL (80-99); MEAN PLATELET VOLUME 9.5 fL (9.0-12.2); MONOCYTES # (AUTO) 0.3 10^3/uL (0.0-1.0); MONOCYTES % (AUTO) 6 % (0-12); NEUTROPHILS # (AUTO) 4.7 10^3/uL (1.8-7.8); NEUTROPHILS % (AUTO) 83 % (42-75); PLATELET COUNT 181 10^3/uL (130-400); WHITE BLOOD COUNT 5.6 10^3/uL (4.3-11.0)
[2022-03-07 20:01] LABS: INR 0.9 (0.8-1.4); PROTHROMBIN TIME PATIENT 12.3 SEC (12.2-14.7)
--- NOTE | 2022-03-07 20:03 | ED Syncope ---
General Chief Complaint: Dizziness/Syncope Stated Complaint: SYNCOPE Nursing Triage Note: Pt reports a syncopal episode yesterday and possibly hit his head. Pt c/o "feeling off" and nauseated. Pt is ambulatory with steady gait into ED and is A&O x 4. Source of Information: Patient History of Present Illness Date Seen by Provider: Mar 07, 2022 Time Seen by Provider: 19:28 Initial Comments 52-year-old male presenting with complaints of not feeling right since he had a syncopal episode on March 06. He states he was sitting in a car and the air conditioner did not work. He was waiting on family members to drive him home. He felt like he got overheated while he was sitting in the hot car. He states that he was sweating but then he stopped sweating and after he dropped his family off he noticed that he was having more blurred vision. He did drive home and once he arrived home he went to get out of the car and became dizzy and fell. He felt like he passed out momentarily. He has abrasions to his right arm and pain to his right side of his face. He did not go to get checked out y . He felt like he was having trouble finding his words and continued did not feel right so he came to the emergency department tonight. He has had some nausea and vomiting as well. He had tried to use his home O2 as he has a history of lung cancer. This did not help with the symptoms. Symptoms Prior to Episode: Blurred Vision, Confusion, Lightheadedness, Nausea Precipitating Factors: Other (Being out in the heat) Loss of Consciousness: Brief (Seconds) Current Symptoms: Blurred Vision; No Chest Pain, No Diaphoresis; Dizziness, Headache, Lightheadedness; No Loss of Bladder Control, No Loss of Bowel Control, No Motionless; Nausea; No Pale, No Shallow/Rapid Breathing, No Weak/Absent Pulse; Weakness Allergies and Home Medications Allergies Coded Allergies: ofloxacin (Verified Allergy, Mild, 07/17/19) acetaminophen (Verified Allergy, Unknown, Hives, 03/13/20) gabapentin (Verified Allergy, Unknown, DELUSIONS, 05/13/21) Penicillins (Verified Adverse Reaction, Unknown, Pt has received Ceftriaxone in the past, 07/17/19) aspirin (Verified Adverse Reaction, Unknown, 07/17/19) latex (Verified Adverse Reaction, Unknown, 07/17/19) Uncoded Allergies: TAPE (Allergy, Mild, 07/17/09) Patient Home Medication List Home Medication List Reviewed: Yes Albuterol Sulfate (Proair Respiclick) 90 Mcg Aer.pow.ba, 2 PUFF IH Q4H PRN for SHORTNESS OF BREATH, (Reported) Entered as Reported by: JAVIER LUU on 06/04/21 165 Budesonide/Formoterol Fumarate (Budesonide-Formoterol 160-4.5) 10.2 Gm Hfa .aer.ad, 2 PUFF IH BID, (Reported) Entered as Reported by: JAVIER LUU on 06/04/21 165 Clindamycin HCl (Clindamycin HCl) 300 Mg Capsule, 300 MG PO Q6H Prescribed by: SERGE LIGHT on 09/14/21 1730 Dicyclomine HCl (Dicyclomine HCl) 20 Mg Tablet, 20 MG PO QID Prescribed by: SERGE LIGHT on 01/31/22 1449 Morphine Sulfate (Morphine Sulfate IR Tablet) 15 Mg Tablet, 15 MG PO Q8H PRN for Lung Cancer pain in Chest Prescribed by: SERGE LIGHT on 05/31/21 0526 Ondansetron (Ondansetron Odt) 4 Mg Tab.rapdis, 4 MG PO Q6H PRN for NAUSEA/VOMITING Prescribed by: SERGE LIGHT on 01/31/22 1449 Pantoprazole Sodium (Protonix) 40 Mg Tablet.dr, 40 MG PO DAILY, (Reported) Entered as Reported by: CHAPO VENTURA on 06/20/21 1511 Sulfamethoxazole/Trimethoprim (Bactrim Ds Tablet) 1 Each Tablet, 1 EACH PO BID Prescribed by: SERGE LIGHT on 01/31/22 1449 Tiotropium Reading (Spiriva Respimat 2.5MCG/ACTUATION) 4 Gm Mist.inhal, 1 PUFF IH DAILY, (Reported) Entered as Reported by: JAVEIR LUU on 06/04/211655 Review of Systems Constitutional: No chills; dizziness; No fever EENTM: no symptoms reported Respiratory: short of breath Cardiovascular: No chest pain Gastrointestinal: nausea, vomiting Genitourinary: No dysuria Skin: other (Abrasions to his right forearm and hand) Psychiatric/Neurological: Headache, Weakness Past Greavjn-Truklx-Klazqa Hx Patient Social History Tobacco Use?: Yes Tobacco type used: Cigarettes Smoking Status: Current Everyday Smoker Substance use?: Yes Substance type: Marijuana Alcohol Use?: No Immunizations Up To Date Tetanus Booster (TDap): Unknown PED Vaccines UTD: Yes First/Initial COVID19 Vaccinat: not vacc Second COVID19 Vaccination Deonte: not vacc Third COVID19 Vaccination Date: not vacc Seasonal Allergies Seasonal Allergies: No Past Medical History Surgery/Hospitalization HX: lung cancer. Pneumonia; cholecysectomy Surgeries: Yes (hernia repair, left testicle injury, brain surgery, cardiac stent) Cardiac, Coronary Stent, Orthopedic Respiratory: Yes (lung ca) COPD Currently Using CPAP: No Currently Using BIPAP: No Cardiac: Yes (STENT) Coronary Artery Disease, Heart Attack Neurological: Yes Seizure Disorder Reproductive Disorders: No Sexually Transmitted Disease: No HIV/AIDS: No Genitourinary: Yes Kidney Stones Gastrointestinal: No Musculoskeletal: No Endocrine: No HEENT: Yes Loss of Vision: Bilateral Cancer: Yes Lung, Pancreatic Psychosocial: Yes ("anger issues") Integumentary: No Blood Disorders: No Adverse Reaction/Blood Tranf: No (N/A) Family Medical History Stroke Physical Exam Vital Signs Vital Signs - First Documented 03/07/22 19:35 Temp 36.6 Pulse 79 Resp 17 B/P (MAP) 140/88 (105) Pulse Ox 97 O2 Delivery Room Air Capillary Refill : Less Than 3 Seconds Height, Weight, BMI Height: 6'4.00" Weight: 225lbs. 0.0oz. 102.804912nc; 28.00 BMI Method:Stated General Appearance: No Apparent Distress, WD/WN HEENT: PERRL/EOMI, TMs Normal, Normal ENT Inspection, Pharynx Normal Neck: Full Range of Motion, Normal Inspection, Non Tender, Supple Cardiovascular: Regular Rate, Rhythm, Normal Peripheral Pulses Respiratory: Chest Non Tender, No Accessory Muscle Use, No Respiratory Dis tress, Decreased Breath Sounds, Wheezing Gastrointestinal: Normal Bowel Sounds, No Pulsatile Mass, Non Tender, Soft Extremities: Normal Capillary Refill, No Calf Tenderness, No Pedal Edema, Other (Superficial abrasions to the right forearm and hand) Neurologic/Psychiatric: Alert, Oriented x3, No Motor/Sensory Deficits, betting clerks II- XII Norm as Tested Cranial Nerves: Normal Hearing, Normal Speech, PERRL Coordination/Gait: Normal Gait Motor/Sensory: No Motor Deficit, No Sensory Deficit Skin: Normal Color, Warm/Dry Progress/Results/Core Measures Results/Orders Lab Results Laboratory Tests Test 03/07/22 19:42 03/07/22 21:39 Range/Units White Blood Count 5.6 4.3-11.0 10^3/uL Red Blood Count 4.68 4.30-5.52 10^6/uL Hemoglobin 15.3 13.3-17.7 g/dL Hematocrit 43 40-54 % Mean Corpuscular Volume 92 80-99 fL Mean Corpuscular Hemoglobin 33 25-34 pg Mean Corpuscular Hemoglobin Concent 36 32-36 g/dL Red Cell Distribution Width 12.8 10.0-14.5 % Platelet Count 181 130-400 10^3/uL Mean Platelet Volume 9.5 9.0-12.2 fL Immature Granulocyte % (Auto) 1 % Neutrophils (%) (Auto) 83 H 42-75 % Lymphocytes (%) (Auto) 9 L 12-44 % Monocytes (%) (Auto) 6 0-12 % Eosinophils (%) (Auto) 1 0-10 % Basophils (%) (Auto) 0 0-10 % Neutrophils # (Auto) 4.7 1.8-7.8 10^3/uL Lymphocytes # (Auto) 0.5 L 1.0-4.0 10^3/uL Monocytes # (Auto) 0.3 0.0-1.0 10^3/uL Eosinophils # (Auto) 0.1 0.0-0.3 10^3/uL Basophils # (Auto) 0.0 0.0-0.1 10^3/uL Immature Granulocyte # (Auto) 0.0 0.0-0.1 10^3/uL Prothrombin Time 12.3 12.2-14.7 SEC INR Comment 0.9 0.8-1.4 Activated Partial Thromboplast Time 29 24-35 SEC Sodium Level 141 135-145 MMOL/L Potassium Level 4.0 3.6-5.0 MMOL/L Chloride Level 106 98-107 MMOL/L Carbon Dioxide Level 24 21-32 MMOL/L Anion Gap 11 5-14 MMOL/L Blood Urea Nitrogen 10 7-18 MG/DL Creatinine 1.03 0.60-1.30 MG/DL Estimat Glomerular Filtration Rate 87 BUN/Creatinine Ratio 10 Glucose Level 114 H 70-105 MG/DL Calcium Level 9.9 8.5-10.1 MG/DL Corrected Calcium 9.7 8.5-10.1 MG/DL Magnesium Level 2.1 1.6-2.4 MG/DL Total Bilirubin < 0.2 0.1-1.0 MG/DL Aspartate Amino Transf (AST/SGOT) 14 5-34 U/L Alanine Aminotransferase (ALT/SGPT) 12 0-55 U/L Alkaline Phosphatase 91 40-136 U/L Myoglobin 38.7 <72.0 NG/ML Troponin I < 0.30 <0.30 NG/ML Pro-B-Type Natriuretic Peptide 118.2 <125.0 PG/ML Total Protein 6.8 6.4-8.2 GM/DL Albumin 4.3 3.2-4.5 GM/DL Lipase 30 8-78 U/L Urine Color YELLOW Urine Clarity CLEAR Urine pH 5.5 5-9 Urine Specific [place] 1.015 L 1.016-1.022 Urine Protein NEGATIVE NEGATIVE Urine Glucose (UA) NEGATIVE NEGATIVE Urine Ketones NEGATIVE NEGATIVE Urine Nitrite NEGATIVE NEGATIVE Urine Bilirubin NEGATIVE NEGATIVE Urine Urobilinogen 0.2 < = 1.0 MG/DL Urine Leukocyte Esterase NEGATIVE NEGATIVE Urine RBC (Auto) NEGATIVE NEGATIVE Urine RBC NONE /HPF Urine WBC NONE /HPF Urine Squamous Epithelial Cells 5-10 /HPF Urine Crystals NONE /LPF Urine Bacteria TRACE /HPF Urine Casts NONE /LPF Urine Mucus NEGATIVE /LPF Urine Culture Indicated NO My Orders Orders - SERGE LIGHT MD Cbc With Automated Diff (03/07/22 19:44) Magnesium (03/07/22 19:44) Chest 1 View Ap/Pa Only (03/07/22 19:44) Ekg Tracing (03/07/22 19:44) Comprehensive Metabolic Panel (03/07/22 19:44) Myoglobin Serum (03/07/22 19:44) Protime With Inr (03/07/22 19:44) Partial Thromboplastin Time (03/07/22 19:44) O2 (03/07/22 19:44) Monitor-Rhythm Ecg Trace Only (03/07/22 19:44) Ed Iv/Invasive Line Start (03/07/22 19:44) Lipase (03/07/22 19:44) Troponin I Fs (03/07/22 19:44) Probnp Fs (03/07/22 19:44) Ns Iv 1000 Ml (Sodium Chloride 0.9%) (03/07/22 19:44) Ondansetron Injection (Zofran Injectio (03/07/22 19:44) Ct Head Wo (03/07/22 19:46) Ua Culture If Indicated (03/07/22 19:46) Heparin (Central Iv Flush) (Heparin (Diana (03/07/22 21:48) Medications Given in ED Current Medications Medications Dose Ordered Sig/Alis Route Start Time Stop Time Status Last Admin Dose Admin Heparin Sodium (Porcine) 500 unit STK-MED ONCE .ROUTE 03/07/22 21:48 03/07/22 21:52 DC 03/07/22 21:50 500 UNIT Vital Signs/I&O 03/07/22 03/07/22 19:35 21:55 Temp 36.6 Pulse 79 75 Resp 17 15 B/P (MAP) 140/88 (105) 129/79 Pulse Ox 97 97 O2 Delivery Room Air Room Air Blood Pressure Mean: 105 Progress Progress Note #1: Progress Note Obtain basic labs as well as electrocardiogram and CT scan of his head. Chest x-ray to evaluate for possible pneumonia or infiltrate. Give normal saline 1 L IV fluid for hydration. Progress Note #2: Progress Note Labs are stable and not showing any acute significant abnormality on blood work. The CT scan of his head does not show any acute process. Chest x-ray is stable. No acute changes or abnormality on his electrocardiogram. Cardiac enzymes are negative. He did take a liter of fluid before he was able to provide a urine specimen. He likely still little dehydrated and sensitive from his heat exposure yesterday. Encouraged to push fluids and rest and stay out of the heat. Initial ECG Impression Date: Mar 07, 2022 Initial ECG Impression Time: 19:38 Initial ECG Rate: 74 Initial ECG Rhythm: Normal Sinus Initial ECG Comparisson: Unchanged Comment Normal sinus rhythm with a heart rate of 74 bpm. Incomplete right bundle branch block. No acute ST elevation. SD interval 178 ms. QT interval 368 ms with a QTc interval 395 ms. Overall appears similar to prior tracings in the system. Diagnostic Imaging Diagonstic Imaging: Xray Plain Films/CT/US/NM/MRI: chest Comments [facility] [place], [place] NAME: ALEA COYNE [facility] REC#: [id number] PT STATUS: REG ER : 1970 PHYSICIAN: SERGE LIGHT MD ADMIT DATE: 03/07/22/ER FS Signed Date of Exam:03/07/22 CHEST 1 VIEW AP/PA ONLY INDICATION: Syncope and cough. COMPARISON: Prior examination from 06/15/2021. FINDINGS: The heart size is normal. Lungs are clear. There is no pleural effusion or pneumothorax. Mediastinum is unremarkable. The Xzmrgj-c-Rvja catheter overlying the left upper chest is coiled upon itself and has its tip in the subclavian vein. IMPRESSION: 1. No acute cardiopulmonary abnormality. 2. The Klvlfp-o-Tmzj catheter overlies the junction of the superior vena cava and left subclavian vein. Dictated by: Dictated on workstation # [id number] Dict: 03/07/222023 Trans: 03/07/222129 [facility] [id number] Interpreted by: REGI MCMAHAN MD Electronically signed by: REGI MCMAHAN MD 03/07/222129 Reviewed: Reviewed by Nv Diagonstic Imaging: CT Plain Films/CT/US/NM/MRI: head Comments [facility]. [place] [place] NAME: ALEA COYNE [facility] REC#: [id number] PT STATUS: REG ER : 1970 PHYSICIAN: SERGE LIGHT MD ADMIT DATE: 03/07/22/ER FS Signed Date of Exam:03/07/22 CT HEAD WO PROCEDURE: CT head without contrast. TECHNIQUE: Multiple contiguous axial images were obtained through the brain without the use of intravenous contrast. Auto Exposure Controls were utilized during the CT exam to meet ALARA standards for radiation dose reduction. INDICATION: Syncope. COMPARISON: Prior examination from 09/14/2021. FINDINGS: The ventricles and sulci are within normal limits. There is no hydrocephalus or cerebral edema. There is no midline shift or mass effect. There is no intracranial mass, hemorrhage, or extra-axial fluid collection. The visualized paranasal sinuses and mastoid air cells are clear. There are no regional areas of decreased attenuation appreciated to suggest an acute CVA. IMPRESSION: No acute intracranial abnormality. Dictated by: Dictated on workstation # [id number] Dict: 03/07/222014 Trans: 03/07/222129 [facility] [id number] Interpreted by: REGI MCMAHAN MD Electronically signed by: REGI MCMAHAN MD 03/07/222129 Reviewed: Reviewed by Me Departure Impression Primary Impression: Syncope Qualified Codes: T67.1XXA - Heat syncope, initial encounter Additional Impressions: Heat exhaustion Qualified Codes: T67.5XXA - Heat exhaustion, unspecified, initial encounter Dehydration Disposition: HOME, SELF-CARE Condition: Stable Departure-Patient Inst. Decision time for Depature: 21:44 Referrals: DARREN CARNEY MD (PCP/Family) Primary Care Physician Patient Instructions: Heat Illness ED, Fainting, Adult ED, Dehydration, Adult ED Add. Discharge Instructions: You need to stay well-hydrated and drink plenty fluids that do not have caffeine or carbonation. Stay out of the heat and try and rest and cool rooms inside the house. You will be more sensitive to the heat for at least the next week while your body is trying to recover from this episode. If you have worsening symptoms or are not improving then check with the clinic or return to the emergency department. All discharge instructions reviewed with patient and/or family. Voiced understanding. SERGE LIGHT MD Mar 07, 2022 20:03
[2022-03-07 20:09] LABS: ALANINE AMINOTRANSFERASE 12 U/L (0-55); ALBUMIN 4.3 GM/DL (3.2-4.5); ALKALINE PHOSPHATASE 91 U/L (40-136); BILIRUBIN,TOTAL < 0.2 MG/DL (0.1-1.0); BUN/CREATININE RATIO 10; CALCIUM 9.9 MG/DL (8.5-10.1); CARBON DIOXIDE 24 MMOL/L (21-32); CHLORIDE 106 MMOL/L (98-107); CREATININE SERUM 1.03 MG/DL (0.60-1.30); GFR ESTIMATED 87; GLUCOSE 114 MG/DL (70-105); LIPASE 30 U/L (8-78); MAGNESIUM 2.1 MG/DL (1.6-2.4); SODIUM 141 MMOL/L (135-145); TOTAL PROTEIN 6.8 GM/DL (6.4-8.2)
--- NOTE | 2022-03-07 20:18 | Diagnostic Imaging Report ---
PROCEDURE: CT head without contrast. TECHNIQUE: Multiple contiguous axial images were obtained through the brain without the use of intravenous contrast. Auto Exposure Controls were utilized during the CT exam to meet ALARA standards for radiation dose reduction. INDICATION: Syncope. COMPARISON: Prior examination from 09/14/2021. FINDINGS: The ventricles and sulci are within normal limits. There is no hydrocephalus or cerebral edema. There is no midline shift or mass effect. There is no intracranial mass, hemorrhage, or extra-axial fluid collection. The visualized paranasal sinuses and mastoid air cells are clear. There are no regional areas of decreased attenuation appreciated to suggest an acute CVA. IMPRESSION: No acute intracranial abnormality. Dictated by: Dictated on workstation # [id number]
--- NOTE | 2022-03-07 20:28 | Diagnostic Imaging Report ---
INDICATION: Syncope and cough. COMPARISON: Prior examination from 06/15/2021. FINDINGS: The heart size is normal. Lungs are clear. There is no pleural effusion or pneumothorax. Mediastinum is unremarkable. The Oqbtte-t-Ccrg catheter overlying the left upper chest is coiled upon itself and has its tip in the subclavian vein. IMPRESSION: 1. No acute cardiopulmonary abnormality. 2. The Kcffta-x-Trab catheter overlies the junction of the superior vena cava and left subclavian vein. Dictated by: Dictated on workstation # [id number]
[2022-03-07 21:41] LABS: BILIRUBIN,URINE NEGATIVE (NEGATIVE); CLARITY,URINE CLEAR; COLOR,URINE YELLOW; GLUCOSE, URINE (UA) NEGATIVE (NEGATIVE); KETONES,URINE NEGATIVE (NEGATIVE); LEUKOCYTE ESTERASE ,URINE NEGATIVE (NEGATIVE); NITRITE,URINE NEGATIVE (NEGATIVE); PH,URINE 5.5 (5-9); PROTEIN,URINE NEGATIVE (NEGATIVE)
[2022-03-07 21:44] LABS: BACTERIA,URINE TRACE /HPF
[2022-03-07] MEDS ORDERED: HEParin (CENTRAL IV FLUSH) 500 UNIT/5 ML SYR ONE (21:48)
[2022-03-07 21:55] VITALS: BP 129/79
== END 2022-03-07 21:55 | disposition home or self-care (01) ==
LOC: EDUNIT# 19:26 → ER FS 19:29
DX: T67.1XXA Heat syncope, initial encounter (principal); S50.811A Abrasion of right forearm, initial encounter; S60.511A Abrasion of right hand, initial encounter; I45.10 Unspecified right bundle-branch block; F17.210 Nicotine dependence, cigarettes, uncomplicated; Z85.118 Personal history of other malignant neoplasm of bronchus and lung; Z99.81 Dependence on supplemental oxygen; Z28.310 Unvaccinated for COVID-19; X30.XXXA Exposure to excessive natural heat, initial encounter
CPT/HCPCS: 36415; 70450; 71045; 80053; 81000; 83690; 83735; 83874; 83880; 84484; 85025; 85610; 85730; 93005; 93041

== ENCOUNTER → 2022-06-16 | Outpatient (CLI) | payer MEDICAID ==
--- NOTE | 2022-06-16 21:11 | Diagnostic Imaging Report ---
INDICATION: Cough. PA and lateral chest obtained at 02:51 p.m. compared to 03/07/2022 FINDINGS: Heart and mediastinal silhouette are normal in appearance. Left-sided Port-A-Cath is unchanged, the Port-A-Cath catheter is partially looped with its tip overlying the left innominate vein, this was similar on the previous study. There is some infiltrate versus scarring in the right upper lobe which appeared similar on the prior study as well. There is no new infiltrate or pleural fluid. IMPRESSION: No change in right upper lobe infiltrate versus scarring when compared to 03/07/2022. No new infiltrate or pneumothorax or pleural fluid. No change in left-sided Port-A-Cath, which is looped in its midportion with tip overlying left innominate vein. Dictated by: Dictated on workstation # [id number]
== END ==
LOC: RAD FS 14:37
PROVIDERS: ATTEND Allergy & Immunology
DX: R05.9 Cough, unspecified (principal)
CPT/HCPCS: 71046

== ENCOUNTER 2022-06-26 17:45 | Emergency (ER) | payer MEDICAID ==
[~2022-06-26 17:45] MED LIST changes: +ALBU8.5H6 IH; -RT-ALBUINH IH
--- NOTE | 2022-06-26 18:42 | ED Respiratory ---
General Chief Complaint: Respiratory Problems Stated Complaint: COVID EXPOSURE,SOA Nursing Triage Note: PT REPORTS EXPOSURE TO COVID THIS WEEK. HE HAS NASAL CONGESTION AND FEEL SHORT OF BREATH. SATS 96% ON ROOM AIR. History of Present Illness Date Seen by Provider: Jun 26, 2022 Time Seen by Provider: 18:40 Initial Comments 52-year-old male with history of lung cancer presents to clinic ER due to being exposed to COVID. States his mom had it. He was told about 30 minutes prior to coming that he had been exposed and he is having symptoms of cough shortness of breath congestion. Patient feels like he is got someone squeezing on the right side of his lungs. No fever or chills. He went to get evaluated for possible COVID. Allergies and Home Medications Allergies Coded Allergies: ofloxacin (Verified Allergy, Mild, 07/17/19) acetaminophen (Verified Allergy, Unknown, Hives, 03/13/20) gabapentin (Verified Allergy, Unknown, DELUSIONS, 05/13/21) Penicillins (Verified Adverse Reaction, Unknown, Pt has received Ceftriaxone in the past, 07/17/19) aspirin (Verified Adverse Reaction, Unknown, 07/17/19) latex (Verified Adverse Reaction, Unknown, 07/17/19) Uncoded Allergies: TAPE (Allergy, Mild, 07/17/09) Patient Home Medication List Home Medication List Reviewed: Yes Albuterol Sulfate (Proair Respiclick) 90 Mcg Aer.pow.ba, 2 PUFF IH Q4H PRN for SHORTNESS OF BREATH, (Reported) Entered as Reported by: JAVIER LUU on 06/04/21 165 Budesonide/Formoterol Fumarate (Budesonide-Formoterol 160-4.5) 10.2 Gm Hfa.aer.ad, 2 PUFF IH BID, (Reported) Entered as Reported by: JAVIER LUU on 06/04/21 1656 Clindamycin HCl (Clindamycin HCl) 300 Mg Capsule, 300 MG PO Q6H Prescribed by: SERGE LIGHT on 09/14/21 1730 Dicyclomine HCl (Dicyclomine HCl) 20 Mg Tablet, 20 MG PO QID Prescribed by: SERGE LIGHT on 01/31/22 1449 Morphine Sulfate (Morphine Sulfate IR Tablet) 15 Mg Tablet, 15 MG PO Q8H PRN for Lung Cancer pain in Chest Prescribed by: SERGE LIGHT on 05/31/21 0526 Nirmatrelvir/Ritonavir (Paxlovid 300-100 mg Pack (Eua)) 300 Mg (150 Mg X 2)-100 Mg Tab.ds.pk, 1 EACH PO BID Prescribed by: Scott Pate on 06/26/22 1920 Ondansetron (Ondansetron Odt) 4 Mg Tab.rapdis, 4 MG PO Q6H PRN for NAUSEA/VOMITING Prescribed by: SERGE LIGHT on 01/31/22 1449 Pantoprazole Sodium (Protonix) 40 Mg Tablet.dr, 40 MG PO DAILY, (Reported) Entered as Reported by: CHAPO VENTURA on 06/20/21 1511 Sulfamethoxazole/Trimethoprim (Bactrim Ds Tablet) 1 Each Tablet, 1 EACH PO BID Prescribed by: SERGE LIGHT on 01/31/22 1449 Tiotropium [place] (Spiriva Respimat 2.5MCG/ACTUATION) 4 Gm Mist.inhal, 1 PUFF IH DAILY, (Reported) Entered as Reported by: JAVIER LUU on 06/04/21 1656 Review of Systems Review of Systems Constitutional: see HPI Past Hkueizz-Yrazxr-Quuzhx Hx Patient Social History Tobacco Use?: Yes Tobacco type used: Cigarettes Smoking Status: Current Everyday Smoker Use of E-Cig and/or Vaping dev: No Substance use?: No Alcohol Use?: No Pt feels they are or have been: No Immunizations Up To Date Tetanus Booster (TDap): Unknown PED Vaccines UTD: Yes First/Initial COVID19 Vaccinat: denies Second COVID19 Vaccination Deonte: denies Third COVID19 Vaccination Date: denies Seasonal Allergies Seasonal Allergies: No Past Medical History Surgery/Hospitalization HX: lung cancer. Pneumonia; cholecysectomy Surgeries: Yes (hernia repair, left testicle injury, brain surgery, cardiac stent) Cardiac, Coronary Stent, Orthopedic Respiratory: Yes (lung ca) COPD Currently Using CPAP: No Currently Using BIPAP: No Cardiac: Yes (STENT) Coronary Artery Disease, Heart Attack Neurological: Yes Seizure Disorder Reproductive Disorders: No Sexually Transmitted Disease: No HIV/AIDS: No Genitourinary: Yes Kidney Stones Gastrointestinal: No Musculoskeletal: No Endocrine: No HEENT: Yes Loss of Vision: Bilateral Cancer: Yes Lung, Pancreatic Psychosocial: Yes ("anger issues") Integumentary: No Blood Disorders: No Adverse Reaction/Blood Tranf: No (N/A) Family Medical History Stroke Physical Exam Vital Signs - First Documented 06/26/22 17:58 Temp 36.3 Pulse 100 Resp 18 B/P (MAP) 128/78 (95) Pulse Ox 96 O2 Delivery Room Air Capillary Refill : Less Than 3 Seconds Height: 6'4.00" Weight: 225lbs. 0.0oz. 102.439448ea; 28.00 BMI Method:Stated General Appearance: WD/WN, no apparent distress HEENT: PERRL/EOMI, normal ENT inspection Neck: non-tender, supple Respiratory: decreased breath sounds Cardiovascular: regular rate, rhythm Neurologic/Psychiatric: alert, oriented x 3 Skin: normal color, warm/dry Progress/Results/Core Measures Suspected Sepsis SIRS Temperature: Pulse: 100 Respiratory Rate: 18 Blood Pressure 128 /78 Mean: 95 Results/Orders Lab Results Laboratory Tests Test 06/26/22 17:58 Range/Units Influenza Type A (RT-PCR) Not Detected Not Detecte Influenza Type B (RT-PCR) Not Detected Not Detecte SARS-CoV-2 RNA (RT-PCR) Detected H Not Detecte My Orders Orders - SCOTT PATE MD Covid 19 Inhouse Test (06/26/22 18:07) Influenza A And B By Pcr (06/26/22 18:07) Isolation Central Supply Req (06/26/22 18:07) Chest Pa/Lat (2 View) (06/26/22 18:36) Vital Signs/I&O 06/26/22 17:58 Temp 36.3 Pulse 100 Resp 18 B/P (MAP) 128/78 (95) Pulse Ox 96 O2 Delivery Room Air Capillary Refill : Less Than 3 Seconds Blood Pressure Mean: 95 Progress Note : Time: 18:43 Progress Note COVID is positive. We are pending CT chest x-ray Diagnostic Imaging Diagonstic Imaging: Xray Comments [place], [place] NAME: ALEA COYNE [facility] REC#: [id number] PT STATUS: REG ER : 1970 PHYSICIAN: SCOTT PATE MD ADMIT DATE: 06/26/22/ER FS Draft Date of Exam:06/26/22 CHEST PA/LAT (2 VIEW) INDICATION: Shortness of air. History of lung cancer. Covid positive patient. COMPARISON: 06/16/2022 and 03/07/2022 FINDINGS: Frontal and lateral radiographic views of the chest were obtained and again show localized airspace opacity within the base of the right upper lobe. Lungs are otherwise clear. There is no large effusion or pneumothorax. Cardiac silhouette and pulmonary vasculature are within normal limits. Left-sided Port-A-Cath is noted. IMPRESSION: 1. Stable airspace opacity in the base of the right upper lobe. Given its stability compared prior exam, this could be on the basis of residual scarring and/or atelectasis. Residual infiltrate or neoplasm is not excluded. Continued follow-up is advised. 2. No acute adverse interval change. Dictated on workstation # [id number] Dict: 06/26/22 1858 Trans: 06/26/22 1901 [id number] Interpreted by: SHARONDA QUINTANA MD Electronically signed by: Departure Impression Primary Impression: COVID-19 Disposition: 01 HOME, SELF-CARE Condition: Stable Departure-Patient Inst. Referrals: PAU CARVAJAL DO (PCP) Primary Care Physician Patient Instructions: Nirmatrelvir and Ritonavir FDA Fact Sheet, COVID-19 (DC) Add. Discharge Instructions: Take symptomatic treatment for cough congestion. Take the Paxlovid for COVID- 19. Stay quarantined for 5 days wear a mask for an additional 5 after that. Follow-up with primary care All discharge instructions reviewed with patient and/or family. Voiced understanding. Scripts Nirmatrelvir/Ritonavir (Paxlovid 300-100 mg Pack (Eua)) 300 Mg (150 Mg X 2)-100 Mg Tab.ds.pk 1 EACH PO BID for 5 Days, #10 PKG 0 Refills Prov: SCOTT PATE MD 06/26/22 SCOTT PATE MD Jun 26, 2022 18:42
[2022-06-26] MEDS ORDERED: NIRM1TAB PO ×2 (18:45→19:20)
--- NOTE | 2022-06-26 19:01 | Diagnostic Imaging Report ---
INDICATION: Shortness of air. History of lung cancer. Covid positive patient. COMPARISON: 06/16/2022 and 03/07/2022 FINDINGS: Frontal and lateral radiographic views of the chest were obtained and again show localized airspace opacity within the base of the right upper lobe. Lungs are otherwise clear. There is no large effusion or pneumothorax. Cardiac silhouette and pulmonary vasculature are within normal limits. Left-sided Port-A-Cath is noted. IMPRESSION: 1. Stable airspace opacity in the base of the right upper lobe. Given its stability compared prior exam, this could be on the basis of residual scarring and/or atelectasis. Residual infiltrate or neoplasm is not excluded. Continued follow-up is advised. 2. No acute adverse interval change. Dictated by: Dictated on workstation # [id number]
[2022-06-26 19:24] VITALS: BP 124/76
== END 2022-06-26 19:24 | disposition home or self-care (01) ==
LOC: EDUNIT# 17:45 → ER FS 17:46
DX: U07.1 COVID-19 (principal); R05.1 Acute cough; R06.02 Shortness of breath; F17.210 Nicotine dependence, cigarettes, uncomplicated; Z91.040 Latex allergy status; Z28.310 Unvaccinated for COVID-19
CPT/HCPCS: 71046; 87636

== ENCOUNTER 2022-07-31 16:23 | Emergency (ER) | payer MEDICAID ==
[~2022-07-31 16:23] MED LIST changes: -DOXY-311 PO; +DOXY-444 PO; +NIRM1TAB PO
--- NOTE | 2022-07-31 17:10 | ED Fall/Injury ---
General Stated Complaint: FALL,L SHOULDER PAIN,LOWER ABD PAIN History of Present Illness Date Seen by Provider: Jul 31, 2022 Time Seen by Provider: 17:07 Initial Comments 52-year-old male is here with complaints of left shoulder pain and right hip pain after he had a fall after tripping over his cat. Patient is able to ambulate without difficulty. Patient's left shoulder is painful and he is concerned he might have a rotator cuff tear. Denies sensory loss or head strike. Allergies and Home Medications Allergies Coded Allergies: ofloxacin (Verified Allergy, Mild, 07/17/19) acetaminophen (Verified Allergy, Unknown, Hives, 03/13/20) gabapentin (Verified Allergy, Unknown, DELUSIONS, 05/13/21) Penicillins (Verified Adverse Reaction, Unknown, Pt has received Ceftriaxone in the past, 07/17/19) aspirin (Verified Adverse Reaction, Unknown, 07/17/19) latex (Verified Adverse Reaction, Unknown, 07/17/19) Uncoded Allergies: TAPE (Allergy, Mild, 07/17/09) Patient Home Medication List Home Medication List Reviewed: Yes Albuterol Sulfate (Proair Respiclick) 90 Mcg Aer.pow.ba, 2 PUFF IH Q4H PRN for SHORTNESS OF BREATH, (Reported) Entered as Reported by: JAVIER LUU on 06/04/21 1656 Budesonide/Formoterol Fumarate (Budesonide-Formoterol 160-4.5) 10.2 Gm Hfa.aer.ad, 2 PUFF IH BID, (Reported) Entered as Reported by: JAVIER LUU on 06/04/21 1656 Clindamycin HCl (Clindamycin HCl) 300 Mg Capsule, 300 MG PO Q6H Prescribed by: SERGE LIGHT on 09/14/21 1730 Dicyclomine HCl (Dicyclomine HCl) 20 Mg Tablet, 20 MG PO QID Prescribed by: SERGE LIGHT on 01/31/22 1449 Morphine Sulfate (Morphine Sulfate IR Tablet) 15 Mg Tablet, 15 MG PO Q8H PRN for Lung Cancer pain in Chest Prescribed by: SERGE LIGHT on 05/31/21 0526 Nirmatrelvir/Ritonavir (Paxlovid 300-100 mg Pack (Eua)) 300 Mg (150 Mg X 2)-100 Mg Tab.ds.pk, 1 EACH PO BID Prescribed by: Scott Lugo on 06/26/22 1920 Ondansetron (Ondansetron Odt) 4 Mg Tab.rapdis, 4 MG PO Q6H PRN for NAUSEA/VOMITING Prescribed by: SERGE LIGHT on 01/31/22 1449 Pantoprazole Sodium (Protonix) 40 Mg Tablet.dr, 40 MG PO DAILY, (Reported) Entered as Reported by: CHAPO VENTURA on 06/20/21 1511 Sulfamethoxazole/Trimethoprim (Bactrim Ds Tablet) 1 Each Tablet, 1 EACH PO BID Prescribed by: SERGE LIGHT on 01/31/22 1449 Tiotropium [place] (Spiriva Respimat 2.5MCG/ACTUATION) 4 Gm Mist.inhal, 1 PUFF IH DAILY, (Reported) Entered as Reported by: JAVIER LUU on 06/04/21 1656 Review of Systems Review of Systems Constitutional: no symptoms reported Eyes: No Symptoms Reported Ears, Nose, Mouth, Throat: no symptoms reported Respiratory: no symptoms reported Cardiovascular: no symptoms reported Gastrointestinal: no symptoms reported Genitourinary: no symptoms reported Musculoskeletal: joint pain, muscle pain Skin: no symptoms reported Psychiatric/Neurological: No Symptoms Reported Past Womfwfx-Emouog-Kwweez Hx Immunizations Up To Date Tetanus Booster (TDap): Unknown PED Vaccines UTD: Yes First/Initial COVID19 Vaccinat: denies Second COVID19 Vaccination Deonte: denies Third COVID19 Vaccination Date: denies Seasonal Allergies Seasonal Allergies: No Past Medical History Surgery/Hospitalization HX: lung cancer. Pneumonia; cholecysectomy Surgeries: Yes (hernia repair, left testicle injury, brain surgery, cardiac stent) Cardiac, Coronary Stent, Orthopedic Respiratory: Yes (lung ca) COPD Currently Using CPAP: No Currently Using BIPAP: No Cardiac: Yes (STENT) Coronary Artery Disease, Heart Attack Neurological: Yes Seizure Disorder Reproductive Disorders: No Sexually Transmitted Disease: No HIV/AIDS: No Genitourinary: Yes Kidney Stones Gastrointestinal: No Musculoskeletal: No Endocrine: No HEENT: Yes Loss of Vision: Bilateral Cancer: Yes Lung, Pancreatic Psychosocial: Yes ("anger issues") Integumentary: No Blood Disorders: No Adverse Reaction/Blood Tranf: No (N/A) Family Medical History Stroke Physical Exam Vital Signs Capillary Refill : Height, Weight, BMI Height: 6'4.00" Weight: 225lbs. 0.0oz. 102.354470hb; 28.00 BMI Method:Stated General Appearance: WD/WN, no apparent distress HEENT: PERRL/EOMI Neck: non-tender, full range of motion, supple, normal inspection Respiratory: chest non-tender Pelvic: normal external exam, other (right hip contusion, full ROM) Back: normal inspection, no vertebral tenderness Extremities: normal range of motion (left shoulder: able to touch opposite shoulder, pain on extension. NV bundle intact) Neurologic/Psychiatric: no motor/sensory deficits, alert, normal mood/affect, oriented x 3 Skin: normal color [place] Coma Score Best Eye Response: (4) Open Spontaneously Best Verbal Response: (5) Oriented Best Motor Response: (6) Obeys Commands Prosper Total: 15 Progress/Results/Core Measures Results/Orders My Orders Orders - MICHELET ALBARRAN MD Shoulder 3 View Left (07/31/22 17:13) Pelvis With Right Hip 2-3 View (07/31/22 17:13) Progress Progress Note : Progress Note 1. LEFT SHOULDER STRAIN/ RIGHT HIP CONTUSION: - XR LEFT SHOULDER: no fracture or dislocation - XR RIGHT HIP: no fracture or dislocation - Toradol 15mg im STAT - Pt has pain medication at home from his PCP - Shoulder sling - Advised Lidoderm patches - Follow up with PCP for out-patient MRI if not improving -The patient was seen in the ED, and treated appropriately to presentation at a specific point in time. Patient is informed that there is a possibility that disease and illness can evolve and change in acuity rapidly or slowly after patient is discharged from the ER. Precautionary advice given to the patient for immediate return to ER if symptoms worsen or do not resolve, and to seek emergency care sooner rather than later. Pt also advised on the importance of PCP follow up and compliance with management and follow up plan with PCP and/or specialist, as this is part of the management plan. Pt verbally expressed understanding. Diagnostic Imaging Diagonstic Imaging: Xray Plain Films/CT/US/NM/MRI: pelvis, hip, other Comments [facility], [place] NAME: ALEA COYNE [facility] REC#: [id number] PT STATUS: REG ER : 1970 PHYSICIAN: MICHELET ALBARRAN MD ADMIT DATE: 07/31/22/ER FS Draft Date of Exam:07/31/22 PELVIS WITH RIGHT HIP 2-3 VIEW HISTORY: Pelvic and right hip pain after injury. TECHNIQUE: Frontal view of the pelvis. Frontal and lateral views of the right hip. COMPARISON: None. FINDINGS: No acute fracture or dislocation is seen in the pelvis. Alignment appears normal. Joint spaces are generally preserved. Bilateral sacroiliac joints are patent. IMPRESSION: 1. No acute osseous abnormality is seen in the pelvis or right hip. Dictated on workstation # [id number] Dict: 07/31/221757 Trans: 07/31/22 1800 [id number] Interpreted by: DUGLAS OLEA MD Electronically signed by: [place], [place] NAME: ALEA COYNE [facility] REC#: [id number] PT STATUS: REG ER : 1970 PHYSICIAN: MICHELET ALBARRAN MD ADMIT DATE: 07/31/22/ER FS Draft Date of Exam:07/31/22 SHOULDER 3 VIEW LEFT INDICATION: Pain after injury. COMPARISON: Radiographs of the chest dated 06/26/2022. TECHNIQUE: Three radiographs of the left shoulder dated 07/31/2022. FINDINGS: A left-sided Port-A-Cath is present with the catheter appearing significantly tortuous and potentially kinked within the left neck. The tortuosity appears similar to prior radiographs of the chest. Moderate degenerative changes of the acromioclavicular joint. No acute fracture or dislocation. No destructive osseous process. No suspicious radiopaque foreign body. IMPRESSION: No acute osseous abnormality with moderate degenerative changes of the acromioclavicular joint. Left-sided Port-A-Cath is in place. Tortuosity of the catheter is again noted, though there is potential kinking of the catheter. Recommend clinical correlation for functionality of the Port-A-Cath. Dictated on workstation # [id number] Dict: 07/31/[id number] Trans: 07/31/22 1801 [id number] Interpreted by: PRABHU FISH MD Electronically signed by: Departure Impression Primary Impression: Left shoulder strain Additional Impression: Contusion of right hip Disposition: HOME, SELF-CARE Condition: Stable Departure-Patient Inst. Referrals: PAU CARVAJAL DO (PCP) Primary Care Physician Patient Instructions: How to Use a Shoulder Sling, Muscle Spasms (DC), Muscle Strain, Muscle Strain ED Add. Discharge Instructions: - Pt has pain medication at home from his PCP - Shoulder sling - Advised Lidoderm patches - Follow up with PCP for out-patient MRI if not improving MICHELET ALBARRAN MD Jul 31, 2022 17:10
--- NOTE | 2022-07-31 18:00 | Diagnostic Imaging Report ---
HISTORY: Pelvic and right hip pain after injury. TECHNIQUE: Frontal view of the pelvis. Frontal and lateral views of the right hip. COMPARISON: None. FINDINGS: No acute fracture or dislocation is seen in the pelvis. Alignment appears normal. Joint spaces are generally preserved. Bilateral sacroiliac joints are patent. IMPRESSION: 1. No acute osseous abnormality is seen in the pelvis or right hip. Dictated by: Dictated on workstation # [id number]
--- NOTE | 2022-07-31 18:02 | Diagnostic Imaging Report ---
INDICATION: Pain after injury. COMPARISON: Radiographs of the chest dated 06/26/2022. TECHNIQUE: Three radiographs of the left shoulder dated 07/31/2022. FINDINGS: A left-sided Port-A-Cath is present with the catheter appearing significantly tortuous and potentially kinked within the left neck. The tortuosity appears similar to prior radiographs of the chest. Moderate degenerative changes of the acromioclavicular joint. No acute fracture or dislocation. No destructive osseous process. No suspicious radiopaque foreign body. IMPRESSION: No acute osseous abnormality with moderate degenerative changes of the acromioclavicular joint. Left-sided Port-A-Cath is in place. Tortuosity of the catheter is again noted, though there is potential kinking of the catheter. Recommend clinical correlation for functionality of the Port-A-Cath. Dictated by: Dictated on workstation # [id number]
[2022-07-31] MEDS ORDERED: KETOROLAC 15 MG/ML VIAL IM ONE (18:45)
[2022-07-31] MEDS ORDERED: KETOROLAC 15 MG/ML VIAL ONE (18:57)
[2022-07-31 19:00] VITALS: BP 141/86
[2022-08-01] MEDS ORDERED: DOXY100T2 PO (20:04)
[2022-08-01] MEDS ORDERED: PRD20T PO (20:04)
[2022-08-01] MEDS ORDERED: ALBU6.7H13 INH (20:04)
[2022-08-01] MEDS ORDERED: BENZ100C18 PO (20:04)
== END 2022-07-31 19:00 | disposition home or self-care (01) ==
LOC: EDUNIT# 16:23 → ER FS 16:24
DX: S46.912A Strain of unspecified muscle, fascia and tendon at shoulder and upper arm level, left arm, initial encounter (principal); S70.01XA Contusion of right hip, initial encounter; Z91.040 Latex allergy status; Z28.310 Unvaccinated for COVID-19; W01.0XXA Fall on same level from slipping, tripping and stumbling without subsequent striking against object, initial encounter
CPT/HCPCS: 73030; 73502; 99281

== ENCOUNTER 2022-08-01 17:31 | Emergency (ER) | payer MEDICAID ==
--- NOTE | 2022-08-01 17:41 | ED Chest Pain ---
General Chief Complaint: Chest Wall Stated Complaint: LT RIB PAIN; BLOODY PHLEGM Source: patient Exam Limitations: no limitations History of Present Illness Date Seen by Provider: Aug 01, 2022 Time Seen by Provider: 17:41 Initial Comments Patient is a 52-year-old male with active lung cancer currently in between chemotherapy sessions who presents with left-sided rib pain, cough with bloody phlegm production after falling yesterday. Patient was seen in the emergency department yesterday for the same. Plain films performed which were nonremarkable. He denies fever chills, sweats but reports persistent hacking cough with chest wall pain and near syncope. He denies increased shortness of breath. He is not currently on anticoagulation or antiplatelet therapy. No other acute symptoms or complaints Timing/Duration: 4-6 hours Severity/Quality: moderate Location: other Radiation: other Activities at Onset: other Prior CP/Workup: other Modifying Factors: improves with other Allergies and Home Medications Allergies Coded Allergies: ofloxacin (Verified Allergy, Mild, 07/17/19) acetaminophen (Verified Allergy, Unknown, Hives, 03/13/20) gabapentin (Verified Allergy, Unknown, DELUSIONS, 05/13/21) Penicillins (Verified Adverse Reaction, Unknown, Pt has received Ceftriaxone in the past, 07/17/19) aspirin (Verified Adverse Reaction, Unknown, 07/17/19) latex (Verified Adverse Reaction, Unknown, 07/17/19) Uncoded Allergies: TAPE (Allergy, Mild, 07/17/09) Patient Home Medication List Home Medication List Reviewed: Yes Albuterol Sulfate (Proair Respiclick) 90 Mcg Aer.pow.ba, 2 PUFF IH Q4H PRN for SHORTNESS OF BREATH, (Reported) Entered as Reported by: JAVIER LUU on 06/04/211655 Budesonide/Formoterol Fumarate (Budesonide-Formoterol 160-4.5) 10.2 Gm Hfa.a er.ad, 2 PUFF IH BID, (Reported) Entered as Reported by: JAVIER LUU on 06/04/21 165 Clindamycin HCl (Clindamycin HCl) 300 Mg Capsule, 300 MG PO Q6H Prescribed by: SERGE LIGHT on 09/14/21 1730 Dicyclomine HCl (Dicyclomine HCl) 20 Mg Tablet, 20 MG PO QID Prescribed by: SERGE LIGHT on 01/31/22 1449 Morphine Sulfate (Morphine Sulfate IR Tablet) 15 Mg Tablet, 15 MG PO Q8H PRN for Lung Cancer pain in Chest Prescribed by: SERGE LIGHT on 05/31/21 0526 Nirmatrelvir/Ritonavir (Paxlovid 300-100 mg Pack (Eua)) 300 Mg (150 Mg X 2)-100 Mg Tab.ds.pk, 1 EACH PO BID Prescribed by: Scott Lugo on 06/26/22 1920 Ondansetron (Ondansetron Odt) 4 Mg Tab.rapdis, 4 MG PO Q6H PRN for NAUSEA/VOMITING Prescribed by: SERGE LIGHT on 01/31/22 144 Pantoprazole Sodium (Protonix) 40 Mg Tablet.dr, 40 MG PO DAILY, (Reported) Entered as Reported by: CHAPO VENTURA on 06/20/21 1511 Sulfamethoxazole/Trimethoprim (Bactrim Ds Tablet) 1 Each Tablet, 1 EACH PO BID Prescribed by: SERGE LIGHT on 01/31/22 144 Tiotropium [place] (Spiriva Respimat 2.5MCG/ACTUATION) 4 Gm Mist.inhal, 1 PUFF IH DAILY, (Reported) Entered as Reported by: JAVIER LUU on 06/04/21 1656 Review of Systems Review of Systems Constitutional: see HPI EENTM: See HPI Respiratory: See HPI Cardiovascular: See HPI Gastrointestinal: See HPI Genitourinary: See HPI Musculoskeletal: see HPI Skin: see HPI Psychiatric/Neurological: See HPI Hematologic/Lymphatic: See HPI All Other Systems Reviewed Negative Unless Noted: No Past Vejuwdd-Yyewzs-Ckbcqv Hx Patient Social History Tobacco Use?: No Immunizations Up To Date Tetanus Booster (TDap): Unknown PED Vaccines UTD: Yes First/Initial COVID19 Vaccinat: denies Second COVID19 Vaccination Deonte: denies Third COVID19 Vaccination Date: denies Seasonal Allergies Seasonal Allergies: No Past Medical History Surgery/Hospitalization HX: lung cancer. Pneumonia; cholecysectomy Surgeries: Yes (hernia repair, left testicle injury, brain surgery, cardiac stent) Cardiac, Coronary Stent, Orthopedic Respiratory: Yes (lung ca) COPD Currently Using CPAP: No Currently Using BIPAP: No Cardiac: Yes (STENT) Coronary Artery Disease, Heart Attack Neurological: Yes Seizure Disorder Reproductive Disorders: No Sexually Transmitted Disease: No HIV/AIDS: No Genitourinary: Yes Kidney Stones Gastrointestinal: No Musculoskeletal: No Endocrine: No HEENT: Yes Loss of Vision: Bilateral Cancer: Yes Lung, Pancreatic Psychosocial: Yes ("anger issues") Integumentary: No Blood Disorders: No Adverse Reaction/Blood Tranf: No (N/A) Family Medical History Stroke Physical Exam Vital Signs Vital Signs - First Documented 08/01/22 17:43 Temp 36.3 Pulse 102 Resp 20 B/P (MAP) 125/83 (97) Pulse Ox 98 O2 Delivery Room Air Capillary Refill : Height, Weight, BMI Height: 6'4.00" Weight: 225lbs. 0.0oz. [id number]; 28.00 BMI Method:Stated General Appearance: No Apparent Distress, WD/WN HEENT: PERRL/EOMI, Normal ENT Inspection, Pharynx Normal Neck: Non Tender, Supple Respiratory: Decreased Breath Sounds, Rhonci Cardiovascular: Regular Rate, Rhythm, No Edema, No Gallop, No JVD Gastrointestinal: Non Tender, Soft Neurologic/Psychiatric: Alert, Oriented x3 Skin: Normal Color Focused Exam Sepsis Stage: Ruled Out Progress/Results/Core Measures Results/Orders Lab Results Laboratory Tests Test 08/01/22 18:00 Range/Units White Blood Count 6.7 4.3-11.0 10^3/uL Red Blood Count 4.87 4.30-5.52 10^6/uL Hemoglobin 15.6 13.3-17.7 g/dL Hematocrit 44 40-54 % Mean Corpuscular Volume 90 80-99 fL Mean Corpuscular Hemoglobin 32 25-34 pg Mean Corpuscular Hemoglobin Concent 36 32-36 g/dL Red Cell Distribution Width 13.1 10.0-14.5 % Platelet Count 203 130-400 10^3/uL Mean Platelet Volume 9.4 9.0-12.2 fL Immature Granulocyte % (Auto) 1 % Neutrophils (%) (Auto) 77 H 42-75 % Lymphocytes (%) (Auto) 15 12-44 % Monocytes (%) (Auto) 5 0-12 % Eosinophils (%) (Auto) 2 0-10 % Basophils (%) (Auto) 1 0-10 % Neutrophils # (Auto) 5.1 1.8-7.8 10^3/uL Lymphocytes # (Auto) 1.0 1.0-4.0 10^3/uL Monocytes # (Auto) 0.4 0.0-1.0 10^3/uL Eosinophils # (Auto) 0.1 0.0-0.3 10^3/uL Basophils # (Auto) 0.0 0.0-0.1 10^3/uL Immature Granulocyte # (Auto) 0.0 0.0-0.1 10^3/uL Prothrombin Time 12.7 12.2-14.7 SEC INR Comment 0.9 0.8-1.4 Activated Partial Thromboplast Time 31 24-35 SEC Sodium Level 138 135-145 MMOL/L Potassium Level 3.8 3.6-5.0 MMOL/L Chloride Level 106 98-107 MMOL/L Carbon Dioxide Level 24 21-32 MMOL/L Anion Gap 8 5-14 MMOL/L Blood Urea Nitrogen 12 7-18 MG/DL Creatinine 0.96 0.60-1.30 MG/DL Estimat Glomerular Filtration Rate 95 BUN/Creatinine Ratio 13 Glucose Level 140 H 70-105 MG/DL Calcium Level 9.2 8.5-10.1 MG/DL Corrected Calcium 8.8 8.5-10.1 MG/DL Total Bilirubin 0.5 0.1-1.0 MG/DL Aspartate Amino Transf (AST/SGOT) 14 5-34 U/L Alanine Aminotransferase (ALT/SGPT) 20 0-55 U/L Alkaline Phosphatase 97 40-136 U/L Total Protein 6.9 6.4-8.2 GM/DL Albumin 4.5 3.2-4.5 GM/DL My Orders Orders - JESSICA DANIELLE DO Cbc With Automated Diff (08/01/22 17:51) Comprehensive Metabolic Panel (08/01/22 17:51) Protime With Inr (08/01/22 17:51) Partial Thromboplastin Time (08/01/22 17:51) Ct Angio Chest W (08/01/22 17:51) Morphine Injection (Morphine Injection (08/01/22 17:51) Ondansetron Injection (Zofran Injectio (08/01/22 18:00) Benzonatate Capsule (Tessalon Perles) (08/01/22 18:00) Iohexol Injection (Omnipaque 350 Mg/Ml 1 (08/01/22 18:45) Received Contrast (Hold Metformin- Contr (08/01/22 18:45) Ns (Ivpb) (Sodium Chloride 0.9% Ivpb Bag (08/01/22 18:45) Doxycycline Hyclate Tablet (Vibramycin T (08/01/22 20:00) Prednisone Tablet (Deltasone Tablet) (08/01/22 20:00) Medications Given in ED Current Medications Medications Dose Ordered Sig/Alis Route Start Time Stop Time Status Last Admin Dose Admin Iohexol 100 ml ONCE ONCE IV 08/01/22 18:45 08/01/22 18:46 DC 08/01/22 18:38 100 ML Ondansetron HCl 4 mg ONCE ONCE IVP 08/01/22 18:00 08/01/22 18:01 DC 08/01/22 18:04 4 MG Sodium Chloride 100 ml ONCE ONCE IV 08/01/22 18:45 08/01/22 18:46 DC 08/01/22 18:38 100 ML Vital Signs/I&O 08/01/22 17:43 Temp 36.3 Pulse 102 Resp 20 B/P (MAP) 125/83 (97) Pulse Ox 98 O2 Delivery Room Air Departure Communication (Admissions) CTA chest, no PE, pulmonary mass, lytic lesions or hemorrhagic effusions. COPD with hemoptysis and chest wall pain. CTA nondiagnostic. Hospital admission offered for observation and pulmonology consult. Patient declines preferring to follow-up in the office. Steroids, antibiotics, antitussives given. Recommendations are for watchful waiting, continued therapeutic and supportive care with PCP/pulmonology follow-up. Strict return precautions reviewed. Patient verbalizes understanding agreement discharge instructions prior to departure peer Impression Primary Impression: Chest wall pain Additional Impressions: Blood-tinged sputum Chronic bronchitis Lung cancer Disposition: HOME, SELF-CARE Condition: Improved Departure-Patient Inst. Decision time for Depature: 20:01 Referrals: PAU CARVAJAL DO (PCP) Primary Care Physician Patient Instructions: Chest Pain, Adult ED, Chronic Obstructive Pulmonary Dis ease (COPD) (DC), Lung Cancer Add. Discharge Instructions: You were evaluated in the emergency department for chest wall pain, and bloody sputum. CT and lab were performed and are nondiagnostic. The exact cause of your symptoms has not been determined. Please continue all home medication, inhaler and oxygen us. Take newly prescribed medications as directed and follow- up with your PCP and or manager hospice early next week for further recommendations and management. In the meantime if you develop new or worsening symptoms return to the emergency department. All discharge instructions reviewed with patient and/or family. Voiced understanding. Scripts Doxycycline Hyclate (Doxycycline Hyclate) 100 Mg Tablet 100 MG PO BID, #20 TAB 0 Refills Prov: JESSICA DANIELLE DO 08/01/22 Benzonatate (TESSALON PERLES) 100 Mg Capsule 200 MG PO TID, #20 CAP Prov: JESSICA DANIELLE DO 08/01/22 Albuterol Sulfate (Proventil Hfa) 90 Mcg Hfa.aer.ad 6.7 GM INH Q6H, #1 GM Prov: JESSICA DANIELLE DO 08/01/22 Prednisone (Prednisone) 20 Mg Tab 40 MG PO DAILY, #6 TAB 0 Refills Prov: JESSICA DANIELLE DO 08/01/22 JESSICA DANIELLE DO Aug 01, 2022 17:41
[2022-08-01] MEDS ORDERED: morphine INJ 10 MG/ML 1ML (SYR OR VIAL) IVP STA (17:51)
[2022-08-01] MEDS ORDERED: BENZONATATE 100 MG (TESSALON) CAPSULE PO SCH (18:00)
[2022-08-01] MEDS ORDERED: ONDANSETRON 4 MG/2 ML (SDV) Z0FRAN IVP ONE (18:00)
[2022-08-01 18:05] LABS: BASOPHILS % (AUTO) 1 % (0-10); EOSINOPHILS # (AUTO) 0.1 10^3/uL (0.0-0.3); EOSINOPHILS % (AUTO) 2 % (0-10); HEMATOCRIT 44 % (40-54); HEMOGLOBIN 15.6 g/dL (13.3-17.7); LYMPHOCYTES % (AUTO) 15 % (12-44); MEAN CORPUSCULAR HEMOGLOBIN 32 pg (25-34); MEAN CORPUSCULAR HGB CONC 36 g/dL (32-36); MEAN CORPUSCULAR VOLUME 90 fL (80-99); MEAN PLATELET VOLUME 9.4 fL (9.0-12.2); MONOCYTES # (AUTO) 0.4 10^3/uL (0.0-1.0); MONOCYTES % (AUTO) 5 % (0-12); NEUTROPHILS # (AUTO) 5.1 10^3/uL (1.8-7.8); NEUTROPHILS % (AUTO) 77 % (42-75); PLATELET COUNT 203 10^3/uL (130-400); WHITE BLOOD COUNT 6.7 10^3/uL (4.3-11.0)
[2022-08-01 18:17] LABS: INR 0.9 (0.8-1.4); PROTHROMBIN TIME PATIENT 12.7 SEC (12.2-14.7)
[2022-08-01 18:25] LABS: CREATININE SERUM 0.96 MG/DL (0.60-1.30); POTASSIUM 3.8 MMOL/L (3.6-5.0)
[2022-08-01 18:26] LABS: ALBUMIN 4.5 GM/DL (3.2-4.5); BILIRUBIN,TOTAL 0.5 MG/DL (0.1-1.0); CALCIUM 9.2 MG/DL (8.5-10.1); TOTAL PROTEIN 6.9 GM/DL (6.4-8.2)
[2022-08-01] MEDS ORDERED: NS 100 ML (IVPB) BAG IV ONE (18:45)
[2022-08-01] MEDS ORDERED: HOLD METFORMIN - RECEIVED CONTRAST 20 ML VIAL IV SCH (18:45)
[2022-08-01] MEDS ORDERED: IOHEXOL 350 MG/ML 100 ML (OMNIPAQUE 350) VIAL IV ONE (18:45)
--- NOTE | 2022-08-01 19:31 | Diagnostic Imaging Report ---
PROCEDURE: CT angiography of the chest with contrast. TECHNIQUE: Multiple contiguous axial images were obtained through the chest after uneventful bolus administration of intravenous contrast. 3D reconstructed CTA MIP acquisitions were also performed. Auto Exposure Controls were utilized during the CT exam to meet ALARA standards for radiation dose reduction. INDICATION: Hemoptysis. Chest pain. Shortness of air. History of pancreatic and lung cancer. COMPARISON: 09/14/2021. FINDINGS: No abnormal intraluminal filling defect is seen within the pulmonary arteries to the 1st subsegmental division. Thoracic aorta is suboptimally opacified, but appears of normal in course and caliber. By NASCET criteria, there is no focal significant stenosis. There is no evidence of dissection or aneurysm. Heart size is within normal limits. There is no large pericardial effusion. No pathologically enlarged or morphologically abnormal adenopathy is seen within the mediastinum, jaylan or axilla. Evaluation of the lung stewart demonstrates scarring with atelectatic changes in the right upper lung. Lungs are otherwise clear. There is no large effusion or pneumothorax. No suspicious pulmonary nodule or mass is seen. Osseous structures show no lytic or blastic lesion. No acute osseous abnormalities are seen. Included portions of the upper abdomen are unremarkable as well. IMPRESSION: 1. No pulmonary embolus. 2. No acute cardiopulmonary process. Dictated by: Dictated on workstation # [id number]
[2022-08-01] MEDS ORDERED: predniSONE 20 MG TAB PO ONE (20:00)
[2022-08-01] MEDS ORDERED: DOXYCYCLINE 100 MG (VIBRAMYCIN) TABLET PO SCH (20:00)
[2022-08-01] MEDS ORDERED: DOXY100T2 PO (20:04)
[2022-08-01] MEDS ORDERED: ALBU6.7H13 INH (20:04)
[2022-08-01] MEDS ORDERED: PRD20T PO (20:04)
[2022-08-01] MEDS ORDERED: BENZ100C18 PO (20:04)
[2022-08-01 20:07] VITALS: BP 137/80
== END 2022-08-01 20:07 | disposition home or self-care (01) ==
LOC: EDUNIT# 17:31 → ER FS 17:34
DX: J42 Unspecified chronic bronchitis (principal); C34.90 Malignant neoplasm of unspecified part of unspecified bronchus or lung; Z91.040 Latex allergy status; Z88.0 Allergy status to penicillin; Z88.1 Allergy status to other antibiotic agents; Z92.21 Personal history of antineoplastic chemotherapy
CPT/HCPCS: 36415; 71275; 80053; 85025; 85610; 85730; Q9967

== ENCOUNTER → 2022-09-18 | Outpatient (CLI) | payer MEDICAID ==
[~2022-09-18] MED LIST changes: +ALBU6.7H13 INH; +BENZ100C18 PO; +DOXY100T2 PO; +PRD20T PO
--- NOTE | 2022-09-18 17:27 | Diagnostic Imaging Report ---
EXAMINATION: Left shoulder 2 or more views HISTORY: Shoulder pain COMPARISON: 07/31/2022 FINDINGS: There is mild acromioclavicular osteoarthritis. No fracture. No dislocation. No change from prior exam. Left-sided port catheter is present with unchanged kinking in the subcutaneous tissues and looping in the subclavian vein. IMPRESSION: 1. Unchanged mild acromioclavicular osteoarthritis. Dictated by: Dictated on workstation # [id number]
== END ==
LOC: RAD FS 12:55
PROVIDERS: ATTEND Allergy & Immunology
DX: M19.012 Primary osteoarthritis, left shoulder (principal)
CPT/HCPCS: 73030

== ENCOUNTER → 2022-09-22 | Outpatient (CLI) | payer MEDICAID ==
--- NOTE | 2022-09-22 14:51 | Diagnostic Imaging Report ---
INDICATION: Lung cancer. Patient was administered 25.6 mCi technetium 99m MDP intravenously and whole-body imaging was performed after a three-hour delay. Comparison is made with prior whole body bone scan from 02/20/2022. The bone scan remains unremarkable. No suspicious foci are identified to suggest osseous metastatic disease. There is normal uptake of activity by the kidneys with excretion into the urinary bladder. There is mild degenerative uptake in the left shoulder. IMPRESSION: No scintigraphic evidence of osseous metastatic disease. Dictated by: Dictated on workstation # [id number]
== END ==
LOC: CARD 10:43
PROVIDERS: ATTEND Nurse Practitioner Adult Health
DX: C34.11 Malignant neoplasm of upper lobe, right bronchus or lung (principal); R29.6 Repeated falls; R55 Syncope and collapse
CPT/HCPCS: 78306; A9503

== ENCOUNTER 2022-10-19 05:37 | Outpatient (CLI) | payer MEDICAID ==
[~2022-10-19] VITALS: Ht 196 cm; Wt 109.1 kg
[2022-10-19] MEDS ORDERED: IBUP-2185 PO (14:49)
[2022-10-19] MEDS ORDERED: PROM118S5 PO (14:49)
[2022-10-19] MEDS ORDERED: OXYC-556 PO (14:49)
== END 2022-10-19 14:54 | disposition home or self-care (01) ==
LOC: PREOP 05:37
PROVIDERS: ATTEND Orthopaedic Surgery
DX: Z01.818 Encounter for other preprocedural examination (principal)

== ENCOUNTER 2022-10-21 09:33 | Day surgery (SDC) | payer MEDICAID ==
--- NOTE | 2022-10-16 07:33 | HISTORY AND PHYSICAL ---
DATE OF SERVICE: 10/21/2022 This would be for outpatient surgery for left shoulder manipulation with arthroscopy on 10/21/2022. INDICATION: The patient is a 52-year-old right hand dominant gentleman with complaints of left shoulder pain over the last several months. He reports he has gotten stiff over the last 6 weeks. He underwent an MRI, which reveals long head of biceps tendinopathy as well as a near full-thickness supraspinatus tear. He has tried rest, activity modifications, anti-inflammatories as well as home exercise program without relief. Due to functional impairment and failure to improve with conservative measures, the patient elected to proceed with surgical intervention. REVIEW OF SYSTEMS: No chest pain, no shortness of breath. No dysuria. PAST MEDICAL HISTORY: Hypercholesterolemia, insomnia, schizophrenia, pancreatic cyst, nephrolithiasis, history of pneumonia, COPD, coronary artery disease, myocardial infarction, seizure disorder, bipolar disorder, squamous cell carcinoma of the lung. PAST SURGICAL HISTORY: Cardiac catheterization, right rotator cuff, bilateral knees, herniorrhaphy, lithotripsy, port placement. SOCIAL HISTORY: The patient smokes a few cigarettes daily. Denies alcohol use. FAMILY HISTORY: Diabetes, kidney disease, lung cancer. PRIMARY CARE PROVIDER: Cassi Goncalves. MEDICATIONS: Pantoprazole, promethazine, ondansetron, albuterol, Spiriva, ibuprofen. ALLERGIES: ASPIRIN, CLEOCIN, FLOXIN, NEURONTIN, LATEX, GLOVES, PENICILLIN. PHYSICAL EXAM: GENERAL: The patient is well-developed, well-nourished, in no acute distress. HEENT: Normocephalic, atraumatic. Pupils equal, round, reactive to light. Oropharynx is clear. NECK: Supple. No lymphadenopathy. LUNGS: Clear to auscultation bilaterally. HEART: Regular rate and rhythm. ABDOMEN: Soft, nontender, nondistended. EXTREMITIES: Left shoulder demonstrates active forward elevation to 90 degrees, passive 120, external rotation to neutral actively, passively 30 degrees. He has a positive Neer's, positive Gutierrez sign. Weakness with abduction and external rotation. IMPRESSION: Left shoulder rotator cuff tear with biceps tendinopathy and adhesive capsulitis. PLAN: Left shoulder manipulation under anesthesia with arthroscopy, possible biceps tenotomy, possible rotator cuff repair. The risks, benefits, options, ramifications and recovery have been discussed at length with the patient. He understands and wishes to proceed. This would be for outpatient surgery on 10/21/2022. Job ID: [id number] DocumentID: [id number] Dictated Date: 10/15/2022 11:35:23 Flat Lock Machine Operator Date: 10/15/2022 11:52:00 Dictated By: QUETA NELSON MD
[~2022-10-21] VITALS: Ht 195.5 cm; Wt 112.0 kg
[2022-10-21] VITALS (11 sets, daily range): BP systolic 102–153; BP diastolic 71–97
[~2022-10-21 09:33] MED LIST changes: +IBUP-2185 PO; +OXYC-556 PO; +PROM118S5 PO; +oxyCODONE/APAP 5/325MG (PERCOCET 5) TABLET PO PRN
[2022-10-21] MEDS ORDERED: LACTATED RINGERS 1,000 ML IV PRN (09:45)
--- NOTE | 2022-10-21 10:44 | Progress Note-Pre Operative ---
Pre-Operative Progress Note Date of Available H&P: Oct 15, 2022 Date H&P Reviewed: Oct 21, 2022 Time H&P Reviewed: 10:36 Changes from last HP none Pre-Operative Diagnosis: left shoulder adhesive capsulitis, SLAP and rotator cuff tears QUETA NELSON MD Oct 21, 2022 10:43
--- NOTE | 2022-10-21 10:44 | Progress Note-Post Operative ---
Post-Operative Progess Note Surgeon (s)/Test Facility Engineer (s) Surgeon QUETA NELSON MD Test Facility Engineer: Sreekanth Camacho Pre-Operative Diagnosis left shoulder adhesive capsulitis, SLAP and rotator cuff tears Post-Operative Diagnosis left shoulder adhesive capsulitis, SLAP tear and partial thickness rotator cuff tear Procedure & Operative Findings Date of Procedure 10/21/22 Procedure Performed/Findings left shoulder arthroscopic biceps tenotomy, acromioplasty and TELLY Anesthesia Type GETA Estimated Blood Loss Estimated blood loss (mL): minimal Specimens/Packing Specimens Removed none Packing: none QUETA NELSON MD Oct 21, 2022 10:44
[2022-10-21] MEDS ORDERED: MIDAZOLAM 2 MG/2 ML (VERSED) VIAL IV ONE (11:00)
[2022-10-21] MEDS ORDERED: morphine PF (DURAMORPH) 10 MG/10 ML AMP ONE (11:00)
[2022-10-21] MEDS ORDERED: BUPIVACAINE 0.25% 10 ML (SENSORCAINE) VIAL ONE ×2 (11:00→11:16)
[2022-10-21] MEDS ORDERED: fentaNYL INJ 100 MCG/2 ML AMP ONE (11:33)
[2022-10-21] MEDS ORDERED: LIDOCAINE PF 2% 5 ML (XYLOCAINE) VIAL ONE (11:33)
[2022-10-21] MEDS ORDERED: ONDANSETRON 4 MG/2 ML (SDV) Z0FRAN ONE (11:33)
[2022-10-21] MEDS ORDERED: MIDAZOLAM 2 MG/2 ML (VERSED) VIAL ONE (11:33)
[2022-10-21] MEDS ORDERED: GLYCOPYRROLATE 0.2 MG/ML (ROBINUL) 2 ML VIAL ONE (11:33)
[2022-10-21] MEDS ORDERED: proPOfol 200 MG/20 ML (DIPRIVAN) VIAL IV ONE (11:33)
[2022-10-21] MEDS ORDERED: ceFAZolin INJECTION 2,000 MG ONE (12:18)
[2022-10-21] MEDS ORDERED: SUGAMMADEX 500 MG/5 ML VIAL (BRIDION) IV ONE (12:20)
[2022-10-21] MEDS ORDERED: BUPIVACAINE 0.25% 10 ML (SENSORCAINE) VIAL INJ ONE (12:35)
--- NOTE | 2022-10-21 12:35 | Anesthesia-General Post-Op ---
General Patient Condition Mental Status/LOC: Same as Preop Cardiovascular: Satisfactory Nausea/Vomiting: Absent Respiratory: Satisfactory Pain: Controlled Complications: Absent Post Op Complications Complications None Follow Up Care/Instructions Patient Instructions None needed. Anesthesia/Patient Condition Patient Condition Patient is doing well, no complaints, stable vital signs, no apparent adverse anesthesia problems. No complications reported per nursing. JONAH TATE CRNA Oct 21, 2022 12:35
[2022-10-21] MEDS ORDERED: ceFAZolin INJECTION 1,000 MG VIAL IV ONE ×3 (12:37→12:45)
[2022-10-21] MEDS ORDERED: morphine INJ 10 MG/ML 1ML (SYR OR VIAL) ONE (12:42)
[2022-10-21] MEDS ORDERED: MEPERIDINE (DEMEROL) INJ 50 MG/ML IVP ONE (12:45)
[2022-10-21] MEDS ORDERED: morphine INJ 10 MG/ML 1ML (SYR OR VIAL) IVP ONE (12:45)
[2022-10-21] MEDS ORDERED: fentaNYL INJ 100 MCG/2 ML AMP IVP ONE (12:45)
--- NOTE | 2022-10-21 19:49 | OPERATIVE REPORT ---
DATE OF SERVICE: 10/21/2022 PREOPERATIVE DIAGNOSES: 1. Left shoulder SLAP tear. 2. Left shoulder partial rotator cuff tear. 3. Left shoulder adhesive capsulitis. POSTOPERATIVE DIAGNOSES: 1. Left shoulder SLAP tear. 2. Left shoulder partial rotator cuff tear. 3. Left shoulder adhesive capsulitis. PROCEDURES: 1. Left shoulder arthroscopic biceps tenotomy. 2. Left shoulder arthroscopic acromioplasty. 3. Left shoulder manipulation under anesthesia. SURGEON: Amauri Nelson MD WEB OPERATIONS LEAD: Sreekanth Camacho, who assisted throughout the procedure and closed the incisions. ANESTHESIA: General endotracheal by Sreekanth Sears CRNA. ESTIMATED BLOOD LOSS: Minimal. DRAINS: None. COMPLICATIONS: None. POSTOPERATIVE PLAN: Sling wear for comfort with progressive range of motion as symptoms allow. The patient was transferred to the recovery room awake and in stable condition. STATEMENT OF MEDICAL NECESSITY: The patient is a 52-year-old gentleman with several-month history of progressively worsening left shoulder pain. Reported increased stiffness over the last month. An MRI revealed a SLAP tear and partial thickness supraspinatus tear. It was felt the patient likely had adhesive capsulitis associated with a SLAP tear. He tried rest, activity modifications, anti-inflammatories without relief. Due to functional impairment and failure to improve with conservative measures, the patient elected to proceed with surgical intervention. Examination under anesthesia revealed forward elevation of 150 degrees, external rotation of 70 degrees, internal rotation of 60 degrees. Post-manipulation range of motion demonstrates symmetric forward elevation 170 degrees, external rotation of 90 degrees, internal rotation of 80 degrees. Arthroscopic findings demonstrated fraying on the undersurface of the supraspinatus with no full-thickness tearing. There was type 2 SLAP tear. There was dense synovitis throughout the shoulder joint. The glenoid and humeral head demonstrated no significant chondral abnormalities. Subacromial space demonstrated sloping of the anterolateral acromion with moderate bursitis and no evidence of bursal-sided rotator cuff tearing. DESCRIPTION OF PROCEDURE: After risks and benefits of procedure were discussed and questions were answered, an informed consent was signed and placed on chart. The operative site was confirmed in the preoperative holding area, initialed by the surgeon. The patient was then transported to the operating room and after adequate levels of general endotracheal anesthetic were obtained, a timeout was called, confirming the operative site. An examination under anesthesia was performed with the above findings noted. While carefully stabilizing the scapula, manipulation was performed bringing the arm into forward elevation, followed by external rotation with the arm at the side and then external rotation and internal rotation at 90 degrees of abduction. This brought the glenohumeral joint to symmetric motion to the contralateral side. The left shoulder and upper extremity were prepped and draped in the usual sterile fashion. The shoulder joint was injected with 20 mL of fluid and standard posterior portal was placed under direct visualization, anterior portal was created in the interval between the biceps, subscapularis and glenoid. The biceps anchor was released, the stump was debrided with a shaver. The rotator cuff was closely inspected and probed with no full-thickness tearing noted and only undersurface fraying noted. The scope was then redirected in the subacromial space. A lateral portal was created. Bursectomy was performed and acromion was planed to a flat type 1 acromion. The rotator cuff was closely inspected with no tearing noted. The shoulder joint and subacromial spaces were copiously irrigated. The portal sites were closed with 4-0 nylon in septic fashion. Shoulder was injected with Duramorph. Port sites were infiltrated with plain Marcaine. A soft dressing and sling were applied. The patient was transferred to recovery room awake and in stable condition. Job ID: [id number] DocumentID: [id number] Dictated Date: 10/21/2022 12:26:48 Caster Helper Date: 10/21/2022 19:01:00 Dictated By: MAAURI NELSON MD
== END 2022-10-21 14:30 | disposition home or self-care (01) ==
LOC: SDC 09:33
PROVIDERS: ATTEND Orthopaedic Surgery
DX: M75.02 Adhesive capsulitis of left shoulder (principal); S43.432A Superior glenoid labrum lesion of left shoulder, initial encounter; M75.112 Incomplete rotator cuff tear or rupture of left shoulder, not specified as traumatic; M65.812 Other synovitis and tenosynovitis, left shoulder; F17.210 Nicotine dependence, cigarettes, uncomplicated; Z79.899 Other long term (current) drug therapy
CPT/HCPCS: 87081

== ENCOUNTER → 2023-01-05 | Outpatient (CLI) | payer MEDICAID ==
[~2023-01-05] MED LIST changes: -oxyCODONE/APAP 5/325MG (PERCOCET 5) TABLET PO PRN
--- NOTE | 2023-01-05 16:55 | Diagnostic Imaging Report ---
INDICATION: 53-year-old male, malignant tumor bronchus/lung. TECHNIQUE: The patient was administered 26.4 mCi technetium 99m MDP intravenously. Anterior and posterior whole-body planar images are obtained. CORRELATION STUDY: 09/22/2022. FINDINGS: Asymmetric uptake over the left shoulder girdle compared to the right is again demonstrated. Overall, generally stable. Bony calvarium unremarkable. Likely mild degenerative uptake about the right aspect of the cervical spine. Spine is otherwise unremarkable. Ribs and sternum unremarkable. The pelvis and lower extremities appear unremarkable. IMPRESSION: Unchanged but asymmetric uptake over the left shoulder girdle compared to the right. This may be owing to underlying inflammatory and/or degenerative change. Metastatic disease is considered less likely but not excluded. Correlation with symptoms and, if indicated, radiographs would be recommended. Dictated by: Dictated on workstation # [id number]
== END ==
LOC: CARD 08:18
PROVIDERS: ATTEND Internal Medicine Hematology & Oncology
DX: C34.11 Malignant neoplasm of upper lobe, right bronchus or lung (principal); I63.9 Cerebral infarction, unspecified
CPT/HCPCS: 78306; A9503

== ENCOUNTER → 2023-02-23 | Outpatient (CLI) | payer MEDICAID | LOC: CARDFS 08:22 | PROVIDERS: ATTEND Internal Medicine Cardiovascular Disease | DX: I10 Essential (primary) hypertension (principal) | CPT/HCPCS: 93306 ==

== ENCOUNTER 2023-03-09 19:04 | Emergency (ER) | payer MEDICAID ==
[~2023-03-09] VITALS: Ht 198.1 cm; Wt 112.5 kg
[2023-03-09] MEDS ORDERED: FAMOTIDINE 20 MG (PEPCID) TABLET PO STA (19:17)
--- NOTE | 2023-03-09 19:25 | ED Chest Pain ---
General Chief Complaint: Chest Pain Stated Complaint: CHEST PAIN Source: patient, EMS, old records Exam Limitations: no limitations History of Present Illness Date Seen by Provider: Mar 09, 2023 Time Seen by Provider: 19:06 Initial Comments 53-year-old male with past medical history of CAD with stenting, lung cancer, COPD, chronic hypoxic respiratory failure on roughly 4 L O2 coming in due to chest pain. Started around 1:30 PM feeling like heartburn to him. He states the pain started getting worse so he called EMS. On route here, EMS states that the EKG did not show a STEMI, pain got worse for him and he had a syncopal episode after coughing. He states this feels different than prior heart attacks. He states he has had 9 stents in the past [address] Day. He states he had a stent done roughly 1 month ago. He did have full dose aspirin today. He has never had a blood clot in the past. Allergies and Home Medications Allergies Coded Allergies: ofloxacin (Verified Allergy, Mild, 10/19/22) acetaminophen (Verified Allergy, Unknown, Hives, 10/19/22) clindamycin (Verified Allergy, Unknown, 10/19/22) gabapentin (Verified Allergy, Unknown, DELUSIONS, 10/19/22) Penicillins (Verified Adverse Reaction, Unknown, Pt has received Ceftriaxone in the past, 10/19/22) aspirin (Verified Adverse Reaction, Unknown, 10/19/22) latex (Verified Adverse Reaction, Unknown, 10/19/22) Uncoded Allergies: TAPE (Allergy, Mild, 07/17/09) Patient Home Medication List Home Medication List Reviewed: Yes Albuterol Sulfate (Proair Respiclick) 90 Mcg Aer.pow.ba, 2 PUFF IH Q4H PRN for SHORTNESS OF BREATH, (Reported) Entered as Reported by: JAVIER LUU on 06/04/21 1656 Albuterol Sulfate (Proventil Hfa) 90 Mcg Hfa.aer.ad, 6.7 GM INH Q6H Prescribed by: JESSICA DANIELLE on 08/01/222003 Benzonatate (Tessalon Perles) 100 Mg Capsule, 200 MG PO TID Prescribed by: JESSICA DANIELLE on 08/01/222003 Budesonide/Formoterol Fumarate (Budesonide-Formoterol 160-4.5) 10.2 Gm Hfa.aer.ad, 2 PUFF IH BID, (Reported) Entered as Reported by: JAVIER LUU on 06/04/21 165 D-Methorphan Hb/Prometh HCl (Promethazine-Dm Syrup) 6.25 Mg-15 Mg/5 Ml Syrup, 5 ML PO Q6H, (Reported) Entered as Reported by: SANDRA DAVID on 10/19/22 1449 Ibuprofen (Ibuprofen) 200 Mg Capsule, 400 MG PO, (Reported) Entered as Reported by: SANDRA DAVID on 10/19/22 1449 Morphine Sulfate (Morphine Sulfate IR Tablet) 15 Mg Tablet, 15 MG PO Q8H PRN for Lung Cancer pain in Chest Prescribed by: SERGE LIGHT on 05/31/21 0526 Ondansetron (Ondansetron Odt) 4 Mg Tab.rapdis, 4 MG PO Q6H PRN for NAUSEA/VOMITING Prescribed by: SERGE LIGHT on 01/31/22 1449 Pantoprazole Sodium (Protonix) 40 Mg Tablet.dr, 40 MG PO DAILY, (Reported) Entered as Reported by: CHAPO VENTURA on 06/20/21 1511 Tiotropium [place] (Spiriva Respimat 2.5MCG/ACTUATION) 4 Gm Mist.inhal, 1 PUFF IH DAILY, (Reported) Entered as Reported by: JAVIER LUU on 06/04/211655 Review of Systems Review of Systems Constitutional: No fever EENTM: No Symptoms Reported Respiratory: See HPI Cardiovascular: Chest Pain Gastrointestinal: No Symptoms Reported Genitourinary: No Symptoms Reported Musculoskeletal: no symptoms reported Skin: no symptoms reported Past Onpdhjs-Qbheht-Xmkokr Hx Patient Social History Tobacco Use?: Yes Tobacco type used: Cigarettes Immunizations Up To Date Tetanus Booster (TDap): Unknown PED Vaccines UTD: Yes First/Initial COVID19 Vaccinat: denies Second COVID19 Vaccination Deonte: denies Third COVID19 Vaccination Date: denies Seasonal Allergies Seasonal Allergies: No Past Medical History Surgery/Hospitalization HX: lung cancer. Pneumonia; cholecysectomy Surgeries: Yes (hernia repair, left testicle injury, brain surgery, cardiac stent) Cardiac, Coronary Stent, Gallbladder, Orthopedic Respiratory: Yes (lung ca, OXYGEN 8L HS, PRN DAYS) COPD Currently Using CPAP: No Currently Using BIPAP: No Cardiac: Yes (STENT) Coronary Artery Disease, Heart Attack Neurological: Yes Seizure Disorder Reproductive Disorders: No Sexually Transmitted Disease: No HIV/AIDS: No Genitourinary: Yes Kidney Stones Gastrointestinal: Yes Gall Bladder Disease Musculoskeletal: No Endocrine: No HEENT: Yes Loss of Vision: Bilateral Cancer: Yes Lung, Pancreatic What Type of Treatment Did You: Chemotherapy, Radiation Psychosocial: Yes PTSD Integumentary: No Blood Disorders: No Adverse Reaction/Blood Tranf: No (N/A) Family Medical History Stroke Physical Exam Vital Signs Vital Signs - First Documented 03/09/23 19:06 Temp 36.4 Pulse 91 Resp 14 B/P (MAP) 155/86 (109) Pulse Ox 98 O2 Delivery Room Air Capillary Refill : Height, Weight, BMI Height: 6'4.00" Weight: 225lbs. 0.0oz. 102.571826uy; 28.39 BMI Method:Stated General Appearance: WD/WN, Anxious HEENT: PERRL/EOMI, Normal ENT Inspection, Pharynx Normal Neck: Full Range of Motion, Normal Inspection, Non Tender, Supple Respiratory: Chest Non Tender, Lungs Clear, Normal Breath Sounds, No Accessory Muscle Use, No Respiratory Distress Cardiovascular: Regular Rate, Rhythm, No Edema, Normal Peripheral Pulses Gastrointestinal: Normal Bowel Sounds, Non Tender, Soft; No Distended, No Guarding Extremity: Normal Capillary Refill, Normal Inspection, Normal Range of Motion, Non Tender, No Calf Tenderness, No Pedal Edema Neurologic/Psychiatric: Alert, No Motor/Sensory Deficits, Normal Mood/Affect Skin: Normal Color, Warm/Dry Progress/Results/Core Measures Results/Orders Lab Results Laboratory Tests Test 03/09/23 19:10 03/09/23 19:35 03/09/23 21:15 Range/Units White Blood Count 8.6 4.3-11.0 10^3/uL Red Blood Count 5.03 4.30-5.52 10^6/uL Hemoglobin 16.6 13.3-17.7 g/dL Hematocrit 46 40-54 % Mean Corpuscular Volume 91 80-99 fL Mean Corpuscular Hemoglobin 33 25-34 pg Mean Corpuscular Hemoglobin Concent 36 32-36 g/dL Red Cell Distribution Width 13.0 10.0-14.5 % Platelet Count 187 130-400 10^3/uL Mean Platelet Volume 10.6 9.0-12.2 fL Immature Granulocyte % (Auto) 1 % Neutrophils (%) (Auto) 73 42-75 % Lymphocytes (%) (Auto) 18 12-44 % Monocytes (%) (Auto) 7 0-12 % Eosinophils (%) (Auto) 1 0-10 % Basophils (%) (Auto) 1 0-10 % Neutrophils # (Auto) 6.3 1.8-7.8 10^3/uL Lymphocytes # (Auto) 1.6 1.0-4.0 10^3/uL Monocytes # (Auto) 0.6 0.0-1.0 10^3/uL Eosinophils # (Auto) 0.1 0.0-0.3 10^3/uL Basophils # (Auto) 0.0 0.0-0.1 10^3/uL Immature Granulocyte # (Auto) 0.1 0.0-0.1 10^3/uL Prothrombin Time 12.4 12.2-14.7 SEC INR Comment 0.9 0.8-1.4 Activated Partial Thromboplast Time 29 24-35 SEC D-Dimer 0.36 0.00-0.49 UG/ML Sodium Level 137 135-145 MMOL/L Potassium Level 4.1 3.6-5.0 MMOL/L Chloride Level 101 98-107 MMOL/L Carbon Dioxide Level 23 21-32 MMOL/L Anion Gap 13 5-14 MMOL/L Blood Urea Nitrogen 15 7-18 MG/DL Creatinine 1.34 H 0.60-1.30 MG/DL Estimat Glomerular Filtration Rate 63 BUN/Creatinine Ratio 11 Glucose Level 93 70-105 MG/DL Calcium Level 10.1 8.5-10.1 MG/DL Corrected Calcium 9.9 8.5-10.1 MG/DL Magnesium Level 2.1 1.6-2.4 MG/DL Total Bilirubin 0.3 0.1-1.0 MG/DL Aspartate Amino Transf (AST/SGOT) 18 5-34 U/L Alanine Aminotransferase (ALT/SGPT) 22 0-55 U/L Alkaline Phosphatase 95 40-136 U/L Troponin I < 0.30 < 0.30 <0.30 NG/ML Pro-B-Type Natriuretic Peptide < 36.0 <125.0 PG/ML Total Protein 6.8 6.4-8.2 GM/DL Albumin 4.2 3.2-4.5 GM/DL Lipase 102 H 8-78 U/L My Orders Orders - ERIN YA MD Cbc With Automated Diff (03/09/23 19:17) Magnesium (03/09/23 19:17) Chest 1 View Ap/Pa Only (03/09/23 19:17) Ekg Tracing (03/09/23 19:17) Comprehensive Metabolic Panel (03/09/23 19:17) Protime With Inr (03/09/23 19:17) Partial Thromboplastin Time (03/09/23 19:17) O2 (03/09/23 19:17) Monitor-Rhythm Ecg Trace Only (03/09/23:17) Ed Iv/Invasive Line Start (03/09/23 19:17) Lipase (03/09/23 19:17) Troponin I Fs (03/09/23 19:17) Probnp Fs (03/09/23 19:) Lidocaine 2% Viscous 15 Ml (Xylocaine Vi (03/09/23 19:30) Famotidine Tablet (Pepcid Tablet) (03/09/23 19:17) Antacid Suspension (Mylanta Suspension (03/09/23 19:30) Nitroglycerin Ointment (Nitrobid Ointme (03/09/23 19:30) Fibrin Degradation Products (03/09/23 19:17) Drug Screen Stat (Urine) (03/09/23 19:17) Ekg Tracing (03/09/23 19:25) Lorazepam Tablet (Ativan Tablet) (03/09/23 20:17) Clopidogrel Tablet (Plavix Tablet) (03/09/23 20:30) Enoxaparin Injection (Lovenox Injection) (03/09/23 20:30) Troponin I Fs (03/09/23 21:00) Medications Given in ED Current Medications Medications Dose Ordered Sig/Alis Route Start Time Stop Time Status Last Admin Dose Admin Al Hydrox/Mg Hydrox/Simethicone 30 ml ONCE ONCE PO 03/09/23 19:30 03/09/23 19:31 DC 03/09/23 19:37 30 ML Clopidogrel Bisulfate 300 mg ONCE ONCE PO 03/09/23 20:30 03/09/23 20:31 DC 03/09/23 20:25 300 MG Enoxaparin Sodium 110 mg ONCE ONCE SC 03/09/23 20:30 03/09/23 20:31 DC 03/09/23 20:26 110 MG Lidocaine HCl 15 ml ONCE ONCE PO 03/09/23 19:30 03/09/23 19:31 DC 03/09/23 19:37 15 ML Nitroglycerin 1 inch ONCE ONCE TOP 03/09/23 19:30 03/09/23 19:31 DC 03/09/23 20:02 1 INCH Vital Signs/I&O 03/09/23 19:06 Temp 36.4 Pulse 91 Resp 14 B/P (MAP) 155/86 (109) Pulse Ox 98 O2 Delivery Room Air Progress Progress Note : Progress Note 53-year-old male presenting due to chest pain. ABCs were intact and vitals were stable on presentation. Physical exam with no significant abnormality other than he is appearing anxious. EKG ordered and interpreted by me showing no acute ischemic changes, appears similar to prior EKG. Just under 15 minutes after the initial EKG he started having pain again, repeat EKG was obtained and once again interpreted by me showing no acute changes. An IV was placed and basic labs were obtained including cardiac biomarkers. He had already received aspirin via EMS prior to arrival. He was stating that the pain initially was somewhat like heartburn, so he was given a GI cocktail on arrival as well. Initial labs significant for normal white blood cell count, creatinine just slightly elevated with a still normal GFR, negative troponin, normal D-dimer. PE very unlikely. Given the constant pain for several hours with a negative troponin, very unlikely to be ACS. Repeat troponin was drawn to be sure, especially given pain worsened just prior to arrival. Chest x-ray ordered and interpreted by me showing no pneumothorax, normal cardiac silhouette. I did contact Dr. Alston, salvage supervisor on-call, he agreed that does not sound cardiac in nature given the normal evaluation thus far here. Repeat troponin negative. Patient well-appearing. I believe he stable for discharge with outpatient follow-up. He was sent home with strict return precautions. Initial ECG Impression Date: Mar 09, 2023 Initial ECG Impression Time: 19:08 Initial ECG Rate: 92 Initial ECG Rhythm: Normal Sinus Comment Narrow QRS, left axis deviation, no STEMI, appears similar to prior EKG EKG : EKG Time: 19:22 Rate: 100 Rhythm: Normal Sinus Comment Narrow QRS, left axis deviation, no STEMI, similar to prior EKG Diagnostic Imaging Diagonstic Imaging: Xray (chest) Comments [facility] [place], [place] NAME: ALEA COYNE JR [facility] REC#: [id number] PT STATUS: REG ER : 1970 PHYSICIAN: ERIN YA MD ADMIT DATE: 03/09/23/ER FS Signed Date of Exam:03/09/23 CHEST 1 VIEW AP/PA ONLY INDICATION: Chest pain. Time of Exam: 7:20 PM Correlation is made with prior chest from 03/07/2022. Heart size is normal. Lungs are clear of acute infiltrates. There is a left chest wall port which is partially looped in the left subclavian but similar to prior exam. The tip remains directed antegrade near the junction of left innominate vein and SVC. There is no effusion or pneumothorax. IMPRESSION: Stable chest. No acute feature is detected. Dictated by: Dictated on workstation # [id number] Dict: 03/09/231940 Trans: 03/09/231945 [facility] [id number] Interpreted by: NIMISHA NAQVI MD Electronically signed by: NIMISHA NAQVI MD 03/09/231945 Departure Impression Primary Impression: Chest pain Qualified Codes: R07.82 - Intercostal pain Disposition: 01 HOME, SELF-CARE Condition: Stable Departure-Patient Inst. Decision time for Depature: 21:55 Referrals: DARREN CARNEY MD (PCP/Family) Primary Care Physician Patient Instructions: Chest Pain, Adult ED Add. Discharge Instructions: Please follow-up with your salvage supervisor as soon as possible. If you have any concerns for life-threatening illness, then of course please come back to the ER. ERIN YA MD Mar 09, 2023 19:25
[2023-03-09 19:27] LABS: BASOPHILS % (AUTO) 1 % (0-10); EOSINOPHILS # (AUTO) 0.1 10^3/uL (0.0-0.3); EOSINOPHILS % (AUTO) 1 % (0-10); HEMATOCRIT 46 % (40-54); HEMOGLOBIN 16.6 g/dL (13.3-17.7); LYMPHOCYTES # (AUTO) 1.6 10^3/uL (1.0-4.0); LYMPHOCYTES % (AUTO) 18 % (12-44); MEAN CORPUSCULAR HEMOGLOBIN 33 pg (25-34); MEAN CORPUSCULAR HGB CONC 36 g/dL (32-36); MEAN CORPUSCULAR VOLUME 91 fL (80-99); MEAN PLATELET VOLUME 10.6 fL (9.0-12.2); MONOCYTES # (AUTO) 0.6 10^3/uL (0.0-1.0); MONOCYTES % (AUTO) 7 % (0-12); NEUTROPHILS # (AUTO) 6.3 10^3/uL (1.8-7.8); NEUTROPHILS % (AUTO) 73 % (42-75); PLATELET COUNT 187 10^3/uL (130-400); WHITE BLOOD COUNT 8.6 10^3/uL (4.3-11.0)
[2023-03-09] MEDS ORDERED: LIDOCAINE 2% VISCOUS 15 ML UDC PO ONE (19:30)
[2023-03-09] MEDS ORDERED: NITROGLYCERIN 2% OINT 1 GM UNIT DOSE PACKET TOP ONE (19:30)
[2023-03-09] MEDS ORDERED: ANTACID SUSP 30 ML UDC (MYLANTA) PO ONE (19:30)
--- NOTE | 2023-03-09 19:45 | Diagnostic Imaging Report ---
INDICATION: Chest pain. Time of Exam: 7:20 PM Correlation is made with prior chest from 03/07/2022. Heart size is normal. Lungs are clear of acute infiltrates. There is a left chest wall port which is partially looped in the left subclavian but similar to prior exam. The tip remains directed antegrade near the junction of left innominate vein and SVC. There is no effusion or pneumothorax. IMPRESSION: Stable chest. No acute feature is detected. Dictated by: Dictated on workstation # [id number]
[2023-03-09 20:10] LABS: BUN/CREATININE RATIO 11; CARBON DIOXIDE 23 MMOL/L (21-32); CHLORIDE 101 MMOL/L (98-107); CREATININE SERUM 1.34 MG/DL (0.60-1.30); GFR ESTIMATED 63; POTASSIUM 4.1 MMOL/L (3.6-5.0); SODIUM 137 MMOL/L (135-145)
[2023-03-09 20:11] LABS: ALANINE AMINOTRANSFERASE 22 U/L (0-55); ALBUMIN 4.2 GM/DL (3.2-4.5); ALKALINE PHOSPHATASE 95 U/L (40-136); BILIRUBIN,TOTAL 0.3 MG/DL (0.1-1.0); CALCIUM 10.1 MG/DL (8.5-10.1); GLUCOSE 93 MG/DL (70-105); LIPASE 102 U/L (8-78); MAGNESIUM 2.1 MG/DL (1.6-2.4); TOTAL PROTEIN 6.8 GM/DL (6.4-8.2)
[2023-03-09 20:12] LABS: FIBRIN DEGRADATION PRODUCTS 0.36 UG/ML (0.00-0.49); INR 0.9 (0.8-1.4); PROTHROMBIN TIME PATIENT 12.4 SEC (12.2-14.7)
[2023-03-09] MEDS: LORazepam 0.5 MG (ATIVAN) TABLET PO STA (20:25)
[2023-03-09] MEDS ORDERED: CLOPIDOGREL 300 MG (PLAVIX) TABLET PO ONE (20:30)
[2023-03-09] MEDS ORDERED: ENOXAPARIN 60 MG/0.6 ML (LOVENOX) SYR SC ONE (20:30)
[2023-03-09 21:58] VITALS: BP 145/84
== END 2023-03-09 21:59 | disposition home or self-care (01) ==
LOC: EDUNIT# 19:04 → ER FS 19:05
DX: R07.9 Chest pain, unspecified (principal); J44.9 Chronic obstructive pulmonary disease, unspecified; J96.11 Chronic respiratory failure with hypoxia; F17.210 Nicotine dependence, cigarettes, uncomplicated; Z95.5 Presence of coronary angioplasty implant and graft; Z99.81 Dependence on supplemental oxygen; Z91.040 Latex allergy status; Z28.310 Unvaccinated for COVID-19
CPT/HCPCS: 36415; 71045; 80053; 83690; 83735; 83880; 84484; 85025; 85379; 85610; 85730; 93005; 93041

== ENCOUNTER 2023-04-26 13:52 | Emergency (ER) | payer MEDICAID ==
[~2023-04-26] VITALS: Ht 200 cm; Wt 97.0 kg
[2023-04-26] MEDS ORDERED: ONDANSETRON INJECTION 4 MG/2 ML (SDV) IVP STA (13:56)
[2023-04-26] MEDS ORDERED: fentaNYL INJECTION 100 MCG/2 ML VIAL IVP STA (13:56)
[2023-04-26] MEDS ORDERED: NS IV 1000 ML 1,000 ML IV STA (13:56)
[2023-04-26] MEDS ORDERED: KETOROLAC INJ 15 MG/ML VIAL IVP STA (13:56)
[2023-04-26 14:17] VITALS: BP 147/86
[2023-04-26 14:17] LABS: BASOPHILS # (AUTO) 0.1 10^3/uL (0.0-0.1); BASOPHILS % (AUTO) 1 % (0-10); EOSINOPHILS # (AUTO) 0.2 10^3/uL (0.0-0.3); EOSINOPHILS % (AUTO) 2 % (0-10); HEMATOCRIT 51 % (40-54); HEMOGLOBIN 17.8 g/dL (13.3-17.7); LYMPHOCYTES # (AUTO) 1.6 10^3/uL (1.0-4.0); LYMPHOCYTES % (AUTO) 15 % (12-44); MEAN CORPUSCULAR HEMOGLOBIN 32 pg (25-34); MEAN CORPUSCULAR HGB CONC 35 g/dL (32-36); MEAN CORPUSCULAR VOLUME 91 fL (80-99); MEAN PLATELET VOLUME 9.6 fL (9.0-12.2); MONOCYTES # (AUTO) 0.5 10^3/uL (0.0-1.0); MONOCYTES % (AUTO) 5 % (0-12); NEUTROPHILS % (AUTO) 77 % (42-75); PLATELET COUNT 243 10^3/uL (130-400); WHITE BLOOD COUNT 10.4 10^3/uL (4.3-11.0)
[2023-04-26 14:22] LABS: BILIRUBIN,URINE NEGATIVE (NEGATIVE); CLARITY,URINE CLOUDY; COLOR,URINE BROWN; GLUCOSE, URINE (UA) NEGATIVE (NEGATIVE); KETONES,URINE NEGATIVE (NEGATIVE); LEUKOCYTE ESTERASE ,URINE NEGATIVE (NEGATIVE); NITRITE,URINE NEGATIVE (NEGATIVE); PROTEIN,URINE 1+ (NEGATIVE)
[2023-04-26] MEDS ORDERED: HYDROmorphone INJECTION 2 MG/ML VIAL IV STA ×2 (14:22→15:12)
--- NOTE | 2023-04-26 14:23 | ED Abdominal Pain ---
General Chief Complaint: Abdominal/GI Problems Stated Complaint: SUPRAPUBIC/BACK PAIN Nursing Triage Note: Patient has presented to ER with cc of abd pain with radiation into his right flank. Source of Information: Patient History of Present Illness Date Seen by Provider: Apr 26, 2023 Time Seen by Provider: 13:55 Initial Comments 53-year-old male presenting with complaints of sudden onset of abdominal pain yesterday. He states that it seems to be worse on the right side. He has had nausea with this as well. He states at times it feels like the pain is going towards his rectum. Currently he is having severe right flank pain wrapping around to his back. He has had intermittent times of stabbing in the right lower quadrant. He states that the last time he had a GI study they told him that his appendix was still there. He has had his gallbladder removed previously. He is undergoing treatment with oncology and radiation for lung cancer. He previously had kidney stones but states this feels different. Timing/Duration: 1 Day Severity/Quality: Severe, Sharp, Stabbing Location: RLQ, Flank (right) Radiation: RLQ, Flank (right) Activities at Onset: None Modifying Factors: Worsens With Palpation Associated Symptoms: Back Pain (right flank), Diaphoresis, Nausea/Vomiting; No Shortness of Air, No Swelling/Mass in Abdomen, No Syncope, No Weakness Allergies and Home Medications Allergies Coded Allergies: ofloxacin (Verified Allergy, Mild, 10/19/22) acetaminophen (Verified Allergy, Unknown, Hives, 10/19/22) clindamycin (Verified Allergy, Unknown, 10/19/22) gabapentin (Verified Allergy, Unknown, DELUSIONS, 10/19/22) Penicillins (Verified Adverse Reaction, Unknown, Pt has received Ceftriaxone in the past, 10/19/22) aspirin (Verified Adverse Reaction, Unknown, 10/19/22) latex (Verified Adverse Reaction, Unknown, 10/19/22) Uncoded Allergies: TAPE (Allergy, Mild, 07/17/09) Patient Home Medication List Home Medication List Reviewed: Yes Albuterol Sulfate (Proair Respiclick) 90 Mcg Aer.pow.ba, 2 PUFF IH Q4H PRN for SHORTNESS OF BREATH, (Reported) Entered as Reported by: JAVIER LUU on 06/04/21 7886 Albuterol Sulfate (Proventil Hfa) 90 Mcg Hfa.aer.ad, 6.7 GM INH Q6H Prescribed by: JESSICA DANIELLE on 08/01/222003 Benzonatate (Tessalon Perles) 100 Mg Capsule, 200 MG PO TID Prescribed by: JESSICA DANIELLE on 08/01/222003 Budesonide/Formoterol Fumarate (Budesonide-Formoterol 160-4.5) 10.2 Gm Hfa.aer.ad, 2 PUFF IH BID, (Reported) Entered as Reported by: JAVIER LUU on 06/04/211655 D-Methorphan Hb/Prometh HCl (Promethazine-Dm Syrup) 6.25 Mg-15 Mg/5 Ml Syrup, 5 ML PO Q6H, (Reported) Entered as Reported by: SANDRA DAVID on 10/19/22 144 Ibuprofen (Ibuprofen) 200 Mg Capsule, 400 MG PO, (Reported) Entered as Reported by: SANDRA DAVID on 10/19/22 144 Morphine Sulfate (Morphine Sulfate IR Tablet) 15 Mg Tablet, 15 MG PO Q8H PRN for Lung Cancer pain in Chest Prescribed by: SERGE LIGHT on 05/31/21 0526 Ondansetron (Ondansetron Odt) 4 Mg Tab.rapdis, 4 MG PO Q6H PRN for NAUSEA/VOMITING Prescribed by: SERGE LIGHT on 01/31/22 144 Oxycodone HCl/Acetaminophen (Oxycodone-Acetaminophen 10-325) 10 Mg-325 Mg Tablet, 1 EACH PO Q4H PRN for PAIN SEVERE Prescribed by: SERGE LIGHT on 04/26/23 1517 Pantoprazole Sodium (Protonix) 40 Mg Tablet.dr, 40 MG PO DAILY, (Reported) Entered as Reported by: CHAPO VENTURA on 06/20/21 151 Tamsulosin HCl (Flomax) 0.4 Mg Cap, 0.4 MG PO DAILY Prescribed by: SERGE LIGHT on 04/26/23 151 Tiotropium [place] (Spiriva Respimat 2.5MCG/ACTUATION) 4 Gm Mist.inhal, 1 PUFF IH DAILY, (Reported) Entered as Reported by: JAVIER LUU on 06/04/211655 Review of Systems Review of Systems Constitutional: No chills, No fever EENTM: No Symptoms Reported Respiratory: No Symptoms Reported Cardiovascular: No Symptoms Reported Gastrointestinal: See HPI Genitourinary: Flank Pain Musculoskeletal: no symptoms reported Skin: No rash Psychiatric/Neurological: Anxiety Past Cqrgfgs-Sfptbc-Mprbik Hx Patient Social History Tobacco Use?: No Use of E-Cig and/or Vaping dev: No Substance use?: No Alcohol Use?: No Immunizations Up To Date Tetanus Booster (TDap): Unknown PED Vaccines UTD: Yes First/Initial COVID19 Vaccinat: denies Second COVID19 Vaccination Deonte: denies Third COVID19 Vaccination Date: denies Seasonal Allergies Seasonal Allergies: No Past Medical History Surgery/Hospitalization HX: COPD, lung cancer, pancreatic cancer, pneumonia hx, cholecysectomy, Surgeries: Yes (hernia repair, left testicle injury, brain surgery, cardiac stent) Cardiac, Coronary Stent, Gallbladder, Orthopedic Respiratory: Yes (lung ca, OXYGEN 8L HS, PRN DAYS) COPD Currently Using CPAP: No Currently Using BIPAP: No Cardiac: Yes (STENT) Coronary Artery Disease, Heart Attack Neurological: Yes Seizure Disorder Reproductive Disorders: No Sexually Transmitted Disease: No HIV/AIDS: No Genitourinary: Yes Kidney Stones Gastrointestinal: Yes Gall Bladder Disease Musculoskeletal: No Endocrine: No HEENT: Yes Loss of Vision: Bilateral Cancer: Yes Lung, Pancreatic What Type of Treatment Did You: Chemotherapy, Radiation Psychosocial: Yes PTSD Integumentary: No Blood Disorders: No Adverse Reaction/Blood Tranf: No (N/A) Family Medical History Stroke Physical Exam Vital Signs Vital Signs - First Documented 04/26/23 14:17 Pulse 120 Resp 22 B/P (MAP) 147/86 (106) Pulse Ox 98 O2 Delivery Room Air Capillary Refill : Height/Weight/BMI Height: 6'4.00" Weight: 225lbs. 0.0oz. 102.530238jl; 24.00 BMI Method:Stated General Appearance: moderate distress, other (chronically ill appearing) Respiratory: chest non-tender, decreased breath sounds Cardiovascular: normal peripheral pulses, tachycardia Gastrointestinal: soft, no pulsatile mass, abnormal bowel sounds (hypoactive), guarding (right flank), tenderness (RLQ and right flank) Rectal: deferred Extremities: normal range of motion, non-tender, normal capillary refill Neurologic/Psychiatric: alert, oriented x 3 Skin: diaphoresis Progress/Results/Core Measures Results/Orders Lab Results Laboratory Tests Test 04/26/23 14:00 Range/Units White Blood Count 10.4 4.3-11.0 10^3/uL Red Blood Count 5.56 H 4.30-5.52 10^6/uL Hemoglobin 17.8 H 13.3-17.7 g/dL Hematocrit 51 40-54 % Mean Corpuscular Volume 91 80-99 fL Mean Corpuscular Hemoglobin 32 25-34 pg Mean Corpuscular Hemoglobin Concent 35 32-36 g/dL Red Cell Distribution Width 12.7 10.0-14.5 % Platelet Count 243 130-400 10^3/uL Mean Platelet Volume 9.6 9.0-12.2 fL Immature Granulocyte % (Auto) 1 % Neutrophils (%) (Auto) 77 H 42-75 % Lymphocytes (%) (Auto) 15 12-44 % Monocytes (%) (Auto) 5 0-12 % Eosinophils (%) (Auto) 2 0-10 % Basophils (%) (Auto) 1 0-10 % Neutrophils # (Auto) 8.0 H 1.8-7.8 10^3/uL Lymphocytes # (Auto) 1.6 1.0-4.0 10^3/uL Monocytes # (Auto) 0.5 0.0-1.0 10^3/uL Eosinophils # (Auto) 0.2 0.0-0.3 10^3/uL Basophils # (Auto) 0.1 0.0-0.1 10^3/uL Immature Granulocyte # (Auto) 0.1 0.0-0.1 10^3/uL Urine Color BROWN H Urine Clarity CLOUDY Urine pH 6.0 5-9 Urine Specific [place] 1.020 1.016-1.022 Urine Protein 1+ H NEGATIVE Urine Glucose (UA) NEGATIVE NEGATIVE Urine Ketones NEGATIVE NEGATIVE Urine Nitrite NEGATIVE NEGATIVE Urine Bilirubin NEGATIVE NEGATIVE Urine Urobilinogen 0.2 < = 1.0 MG/DL Urine Leukocyte Esterase NEGATIVE NEGATIVE Urine RBC (Auto) 3+ H NEGATIVE Urine RBC >100 H /HPF Urine WBC 0-2 /HPF Urine Squamous Epithelial Cells NONE /HPF Urine Crystals NONE /LPF Urine Bacteria NEGATIVE /HPF Urine Casts NONE /LPF Urine Mucus SMALL H /LPF Urine Culture Indicated NO Sodium Level 139 135-145 MMOL/L Potassium Level 4.1 3.6-5.0 MMOL/L Chloride Level 101 98-107 MMOL/L Carbon Dioxide Level 22 21-32 MMOL/L Anion Gap 16 H 5-14 MMOL/L Blood Urea Nitrogen 13 7-18 MG/DL Creatinine 1.17 0.60-1.30 MG/DL Estimat Glomerular Filtration Rate 74 BUN/Creatinine Ratio 11 Glucose Level 181 H 70-105 MG/DL Calcium Level 10.5 H 8.5-10.1 MG/DL Corrected Calcium 8.5-10.1 MG/DL Total Bilirubin 0.4 0.1-1.0 MG/DL Aspartate Amino Transf (AST/SGOT) 17 5-34 U/L Alanine Aminotransferase (ALT/SGPT) 24 0-55 U/L Alkaline Phosphatase 115 40-136 U/L Total Protein 7.5 6.4-8.2 GM/DL Albumin 4.7 H 3.2-4.5 GM/DL Lipase 24 8-78 U/L My Orders Orders - SERGE LIGHT MD Comprehensive Metabolic Panel (04/26/23 13:56) Lipase (04/26/23 13:56) Ua Culture If Indicated (04/26/23 13:56) Ed Iv/Invasive Line Start (04/26/23 13:56) Cbc With Automated Diff (04/26/23 13:56) Ct Abdomen/Pelvis Wo (04/26/23 13:56) Ns Iv 1000 Ml (Ns Iv 1000 Ml) (04/26/23 13:56) Ondansetron Injection (Ondansetron Inj (04/26/23 13:56) Fentanyl Injection (Fentanyl Injection (04/26/23 13:56) Ketorolac Injection (Ketorolac Injection (04/26/23 13:56) Hydromorphone Injection (Hydromorphone (04/26/23 14:22) Hydromorphone Injection (Hydromorphone (04/26/23 15:12) Tamsulosin Capsule (Flomax Capsule) (04/26/23 15:12) Strain Urine (04/26/23 15:12) Vital Signs/I&O 04/26/23 14:17 Pulse 120 Resp 22 B/P (MAP) 147/86 (106) Pulse Ox 98 O2 Delivery Room Air Blood Pressure Mean: 106 Progress Progress Note #1: Progress Note Potential diagnosis of bowel obstruction, diverticulitis, colitis, renal colic, pyelonephritis, cystitis, appendicitis. Obtain peripheral IV access and send labs for complete blood count, comprehensive metabolic profile, lipase. Urinalysis to look for signs of infection and hydration. CT scan of the abdomen pelvis without IV contrast to look for pathology to be causing his symptoms. Normal saline 1 IV fluid bolus for hydration, Toradol 15 mg IV for pain and inflammation, fentanyl 50 mcg IV for severe pain. 4025 patient was feeling that none of the medicine was helping him with the pain and it felt worse after he had gone for CT scan. Ordered hydromorphone 0.5 mg IV x1. Progress Note #2: Time: 14:46 Progress Note On my personal review and interpretation of the CT scan of the abdomen and pe lvis without IV contrast I did not appreciate any ureteral stone to be causing his pain. It looks like his appendix had air in it and does not have stranding around it to indicate appendicitis. Awaiting radiology reading on the study. Complete blood count had his white blood cells at upper limit of normal at 10.4. His hemoglobin was slightly concentrated with a value of 17.8. He had normal platelets of 243. Urinalysis was slightly concentrated with specific gravity 1.020 and 3+ red blood cells greater than 100 red blood cells per high-power field on the microscopic exam. He did not have nitrites or leukocyte esterase to indicate a UTI. His comprehensive metabolic profile showed normal kidney function with a BUN of 13 and a creatinine of 1.17. His glucose was slightly elevated to 181. His liver enzymes were not elevated. Lipase was normal at 24 and did not indicate pancreatitis. Awaiting radiology report for the CT. He does report that the pain is now more dull and status sharp and stabbing but still present just not as severe as when he arrived Progress Note #3: Progress Note His complete blood count and comprehensive metabolic profile did not show any vaccination for his symptoms. His urinalysis did have greater than 100 red blood cells per high-power field not showing signs of infection. This would be consistent with hematuria and possible kidney stone. Radiology report on the CT scan of the abdomen and pelvis without IV contrast shows a 5 mm kidney stone that is at the UVJ on the right side. There is moderate hydroureter and hydronephrosis. He did not have other pathology in the abdomen to account for his pain. When reviewing results with the patient he states his pain is improved but still there. We will repeat an additional dose of Dilaudid 0.5 mg IV x1. From review of the patient prescription monitoring program he does have 10 mg oxycodone that he gets monthly from his primary care provider and he is a few days early to get that refilled. We will send a prescription for 10/325 Percocet to the pharmacy that he could use for severe pain for the next 2 to 3 days until he gets his refill of the chronic oxycodone. Prescribed Flomax or tamsulosin 0.4 mg daily x5 days and give the first dose here. Use this for renal colic and to try and help the ureter relax to make it easier for the stone to pass. Counseled on straining his urine as well as pushing fluids and hydration. Check with the urologist, Dr. Padron, for follow-up especially if the pain is not resolving and he does not see the stone pass with straining his urine. Diagnostic Imaging Diagonstic Imaging: CT Plain Films/CT/US/NM/MRI: abdomen, pelvis Comments NAME: ALEA COYNE [facility] REC#: [id number] PT STATUS: REG ER : 1970 PHYSICIAN: SERGE LIGHT MD ADMIT DATE: 04/26/23/ER FS Draft Date of Exam:04/26/23 CT ABDOMEN/PELVIS WO PROCEDURE: CT abdomen and pelvis without contrast. TECHNIQUE: Multiple contiguous axial images were obtained through the abdomen and pelvis without the use of intravenous contrast. Auto Exposure Controls were utilized during the CT exam to meet ALARA standards for radiation dose reduction. INDICATION: Diffuse abdominal pain and rectal pain. COMPARISON: Correlation is made with prior CT from 01/31/2022. FINDINGS: The lung bases are clear. The liver demonstrates diffuse low attenuation consistent with hepatic steatosis. No liver mass is identified. The gallbladder is surgically absent. There is no biliary ductal dilatation. The pancreas and spleen are unremarkable. No adrenal mass is identified. There are nonobstructing calculi in the right kidney, largest 6 mm in size. There is also a 5 mm calculus in the proximal left ureter near the UPJ. No significant hydronephrosis is identified. A low-attenuation lesion in the lower pole left kidney is noted, likely a cyst. Aorta is nonaneurysmal. The bowel loops are normal in caliber. Appendix is unremarkable. There is diverticulosis of the sigmoid colon, but no evidence of acute diverticulitis. There is no ascites. Prostate is unremarkable. There is some generalized bladder wall thickening. IMPRESSION: 1. Hepatic steatosis. 2. Nonobstructing right-sided nephrolithiasis. In addition, there is a 5 mm calculus in the proximal left ureter near the UVJ, without hydronephrosis. 3. Uncomplicated diverticulosis. Dictated on workstation # [id number] Dict: 04/26/23 1433 Trans: 04/26/23 1445 [id number] Interpreted by: NIMISHA NAQVI MD Electronically signed by: Reviewed: Reviewed by Me Departure Impression Primary Impression: Calculus of distal right ureter Additional Impressions: Right flank pain Renal colic on right side Disposition: HOME, SELF-CARE Condition: Improved Departure-Patient Inst. Decision time for Depature: 15:17 Referrals: DARREN CARNEY MD (PCP/Family) Primary Care Physician Patient Instructions: Flank Pain ED, Kidney Stone, Adult ED, How to Strain Your Urine, Kidney Stone Diet Add. Discharge Instructions: Try to stay well-hydrated and keep drinking plenty of fluids to help flush the 5 mm kidney stone out. Strain your urine to see when the stone might pass. For severe pain take the oxycodone 10/325 1 every 4 hours as needed for severe pain. Check with your primary doctor if you need a referral to see urologist. Dr. Padron with the [facility] does come to see patients here in [place]. His office phone number is [phone] The flomax (tamsulosin) is once a day and is to help the ureter relax and the stone to pass easier. All discharge instructions reviewed with patient and/or family. Voiced understanding. Scripts Tamsulosin HCl (Flomax) 0.4 Mg Cap 0.4 MG PO DAILY for Renal Colic for 5 Days, #5 CAP 0 Refills Prov: SERGE LIGHT MD 04/26/23 Oxycodone HCl/Acetaminophen (Oxycodone-Acetaminophen 10-325) 10 Mg-325 Mg Tablet 1 EACH PO Q4H PRN for PAIN SEVERE MDD 3 for 3 Days, #18 TAB 0 Refills Prov: SERGE LIGHT MD 04/26/23 SERGE LIGHT MD Apr 26, 2023 14:23
[2023-04-26 14:37] LABS: BACTERIA,URINE NEGATIVE /HPF; RBC,URINE >100 /HPF; WBC,URINE 0-2 /HPF
[2023-04-26 14:39] LABS: BUN/CREATININE RATIO 11; CALCIUM 10.5 MG/DL (8.5-10.1); CARBON DIOXIDE 22 MMOL/L (21-32); CHLORIDE 101 MMOL/L (98-107); CREATININE SERUM 1.17 MG/DL (0.60-1.30); GFR ESTIMATED 74; GLUCOSE 181 MG/DL (70-105); POTASSIUM 4.1 MMOL/L (3.6-5.0); SODIUM 139 MMOL/L (135-145)
[2023-04-26 14:40] LABS: ALANINE AMINOTRANSFERASE 24 U/L (0-55); ALBUMIN 4.7 GM/DL (3.2-4.5); ALKALINE PHOSPHATASE 115 U/L (40-136); BILIRUBIN,TOTAL 0.4 MG/DL (0.1-1.0); LIPASE 24 U/L (8-78); TOTAL PROTEIN 7.5 GM/DL (6.4-8.2)
--- NOTE | 2023-04-26 14:46 | Diagnostic Imaging Report ---
PROCEDURE: CT abdomen and pelvis without contrast. TECHNIQUE: Multiple contiguous axial images were obtained through the abdomen and pelvis without the use of intravenous contrast. Auto Exposure Controls were utilized during the CT exam to meet ALARA standards for radiation dose reduction. INDICATION: Diffuse abdominal pain and rectal pain. COMPARISON: Correlation is made with prior CT from 01/31/2022. FINDINGS: The lung bases are clear. The liver demonstrates diffuse low attenuation consistent with hepatic steatosis. No liver mass is identified. The gallbladder is surgically absent. There is no biliary ductal dilatation. The pancreas and spleen are unremarkable. No adrenal mass is identified. There are nonobstructing calculi in the right kidney, largest 6 mm in size. There is also a 5 mm calculus in the proximal left ureter near the UPJ. No significant hydronephrosis is identified. A low-attenuation lesion in the lower pole left kidney is noted, likely a cyst. Aorta is nonaneurysmal. The bowel loops are normal in caliber. Appendix is unremarkable. There is diverticulosis of the sigmoid colon, but no evidence of acute diverticulitis. There is no ascites. Prostate is unremarkable. There is some generalized bladder wall thickening. IMPRESSION: 1. Hepatic steatosis. 2. Nonobstructing right-sided nephrolithiasis. In addition, there is a 5 mm calculus in the proximal left ureter near the UVJ, without hydronephrosis. 3. Uncomplicated diverticulosis. Dictated by: Dictated on workstation # [id number]
[2023-04-26] MEDS ORDERED: TAMSULOSIN 0.4 MG (FLOMAX) CAP PO STA (15:12)
[2023-04-26] MEDS ORDERED: TMSL.4C PO (15:16)
[2023-04-26] MEDS ORDERED: OXYC-556 PO (15:16)
== END 2023-04-26 15:30 | disposition home or self-care (01) ==
LOC: EDUNIT# 13:52 → ER FS 13:53
DX: N13.2 Hydronephrosis with renal and ureteral calculous obstruction (principal); J44.9 Chronic obstructive pulmonary disease, unspecified; Z99.81 Dependence on supplemental oxygen; Z91.040 Latex allergy status; Z90.49 Acquired absence of other specified parts of digestive tract; Z98.890 Other specified postprocedural states; Z88.6 Allergy status to analgesic agent; Z28.310 Unvaccinated for COVID-19
CPT/HCPCS: 36415; 74176; 80053; 81000; 83690; 85025

== ENCOUNTER → 2023-04-29 | Outpatient (CLI) | payer MEDICAID ==
--- NOTE | 2023-04-29 14:45 | Diagnostic Imaging Report ---
INDICATION: Malignant tumor of the lung bronchus on the right. Patient was administered 27.5 mCi technetium 99m MDP intravenously and whole-body imaging was performed after a three-hour delay. Comparison is made with prior whole body bone scan from 01/05/2023. Physiologic uptake within the axial and appendicular skeletons noted. There is uptake by the kidneys with excretion to urinary bladder. Mild asymmetric over the left shoulder is similar to prior exam. No new areas of abnormal tracer chelation identified. IMPRESSION: Stable whole body bone scan when compared to exam from 01/05/2023 with mild asymmetric uptake over the left shoulder. Dictated by: Dictated on workstation # [id number]
== END ==
LOC: CARD 10:13
PROVIDERS: ATTEND Nurse Practitioner Adult Health
DX: C34.11 Malignant neoplasm of upper lobe, right bronchus or lung (principal)
CPT/HCPCS: 78306; A9503

== ENCOUNTER 2023-04-30 16:37 | Emergency (ER) | payer MEDICAID ==
[~2023-04-30] VITALS: Ht 200 cm; Wt 97.0 kg
[2023-04-30 16:40] VITALS: BP 122/84
--- NOTE | 2023-04-30 16:45 | ED GU-Male ---
General Chief Complaint: - Reproductive Stated Complaint: RT FLANK PAIN; HEMATURIA History of Present Illness Date Seen by Provider: Apr 30, 2023 Time Seen by Provider: 16:44 Initial Comments 53-year-old male presents with right flank pain and hematuria. Patient has known kidney stone disease and has had a recent CT. Patient presents because he was driving up here from [place] and had significant increasing in his pain. He denies any nausea or vomiting. He does have an appointment with the urol ogist Dr. Padron in 4 days for further evaluation. He does have recurrent stone disease. Allergies and Home Medications Allergies Coded Allergies: ofloxacin (Verified Allergy, Mild, 10/19/22) acetaminophen (Verified Allergy, Unknown, Hives, 10/19/22) clindamycin (Verified Allergy, Unknown, 10/19/22) gabapentin (Verified Allergy, Unknown, DELUSIONS, 10/19/22) Penicillins (Verified Adverse Reaction, Unknown, Pt has received Ceftriaxone in the past, 10/19/22) aspirin (Verified Adverse Reaction, Unknown, 10/19/22) latex (Verified Adverse Reaction, Unknown, 10/19/22) Uncoded Allergies: TAPE (Allergy, Mild, 07/17/09) Patient Home Medication List Home Medication List Reviewed: Yes Albuterol Sulfate (Proair Respiclick) 90 Mcg Aer.pow.ba, 2 PUFF IH Q4H PRN for SHORTNESS OF BREATH, (Reported) Entered as Reported by: JAVIER LUU on 06/04/211655 Albuterol Sulfate (Proventil Hfa) 90 Mcg Hfa.aer.ad, 6.7 GM INH Q6H Prescribed by: JESSIAC DANIELLE on 08/01/222003 Benzonatate (Tessalon Perles) 100 Mg Capsule, 200 MG PO TID Prescribed by: JESSICA DANIELLE on 08/01/222003 Budesonide/Formoterol Fumarate (Budesonide-Formoterol 160-4.5) 10.2 Gm Hfa.aer.ad, 2 PUFF IH BID, (Reported) Entered as Reported by: JAVIER LUU on 06/04/211655 D-Methorphan Hb/Prometh HCl (Promethazine-Dm Syrup) 6.25 Mg-15 Mg/5 Ml Syrup, 5 ML PO Q6H, (Reported) Entered as Reported by: SANDRA DAVID on 10/19/22 144 Ibuprofen (Ibuprofen) 200 Mg Capsule, 400 MG PO, (Reported) Entered as Reported by: SANDRA DAVID on 10/19/22 144 Morphine Sulfate (Morphine Sulfate IR Tablet) 15 Mg Tablet, 15 MG PO Q8H PRN for Lung Cancer pain in Chest Prescribed by: SERGE LIGHT on 05/31/21 0526 Ondansetron (Ondansetron Odt) 4 Mg Tab.rapdis, 4 MG PO Q6H PRN for NAUSEA/VOMITING Prescribed by: SERGE LIGHT on 01/31/22 1449 Oxycodone HCl/Acetaminophen (Oxycodone-Acetaminophen 10-325) 10 Mg-325 Mg Tablet, 1 EACH PO Q4H PRN for PAIN SEVERE Prescribed by: SERGE LIGHT on 04/26/23 1517 Pantoprazole Sodium (Protonix) 40 Mg Tablet.dr, 40 MG PO DAILY, (Reported) Entered as Reported by: CHAPO VENTURA on 06/20/21 151 Tamsulosin HCl (Flomax) 0.4 Mg Cap, 0.4 MG PO DAILY Prescribed by: SERGE LIGHT on 04/26/23 1516 Tiotropium [place] (Spiriva Respimat 2.5MCG/ACTUATION) 4 Gm Mist.inhal, 1 PUFF IH DAILY, (Reported) Entered as Reported by: JAVIER LUU on 06/04/21 1656 Review of Systems Review of Systems Constitutional: No chills, No fever Genitourinary: see HPI Musculoskeletal: back pain Past Eshomhw-Klnapt-Ugmxwj Hx Immunizations Up To Date Tetanus Booster (TDap): Unknown PED Vaccines UTD: Yes First/Initial COVID19 Vaccinat: denies Second COVID19 Vaccination Deonte: denies Third COVID19 Vaccination Date: denies Seasonal Allergies Seasonal Allergies: No Past Medical History Surgery/Hospitalization HX: COPD, lung cancer, pancreatic cancer, pneumonia hx, cholecysectomy, Surgeries: Yes (hernia repair, left testicle injury, brain surgery, cardiac stent) Cardiac, Coronary Stent, Gallbladder, Orthopedic Respiratory: Yes (lung ca, OXYGEN 8L HS, PRN DAYS) COPD Currently Using CPAP: No Currently Using BIPAP: No Cardiac: Yes (STENT) Coronary Artery Disease, Heart Attack Neurological: Yes Seizure Disorder Reproductive Disorders: No Sexually Transmitted Disease: No HIV/AIDS: No Genitourinary: Yes Kidney Stones Gastrointestinal: Yes Gall Bladder Disease Musculoskeletal: No Endocrine: No HEENT: Yes Loss of Vision: Bilateral Cancer: Yes Lung, Pancreatic What Type of Treatment Did You: Chemotherapy, Radiation Psychosocial: Yes PTSD Integumentary: No Blood Disorders: No Adverse Reaction/Blood Tranf: No (N/A) Family Medical History Stroke Physical Exam Vital Signs Vital Signs - First Documented 04/30/23 16:40 Temp 36.1 Pulse 112 Resp 18 B/P (MAP) 122/84 (97) Pulse Ox 96 O2 Delivery Room Air Capillary Refill : Height, Weight, BMI Height: 6'4.00" Weight: 225lbs. 0.0oz. 102.336388ti; 24.00 BMI Method:Stated General Appearance: mild distress Cardiovascular: normal peripheral pulses, regular rate, rhythm Respiratory: lungs clear, normal breath sounds Gastrointestinal: soft; No tenderness Back: CVA tenderness (R) Neurologic/Psychiatric: alert, normal mood/affect, oriented x 3 Skin: normal color Progress/Results/Core Measures Suspected Sepsis SIRS Temperature: Pulse: Respiratory Rate: Blood Pressure / Mean: Results/Orders My Orders Orders - PAVEL SALGUERO DO Ketorolac Injection (Ketorolac Injection (04/30/23 17:02) Metoclopramide Injection (Metoclopramide (04/30/23 17:02) Ns Iv 1000 Ml (Ns Iv 1000 Ml) (04/30/23 17:02) Oxycodone Immediate Rel Tablet (Oxycodon (04/30/23 17:30) Medications Given in ED Current Medications Medications Dose Ordered Sig/Alis Route Start Time Stop Time Status Last Admin Dose Admin Oxycodone HCl 5 mg ONCE ONCE PO 04/30/23 17:30 04/30/23 17:31 DC 04/30/23 17:34 5 MG Vital Signs/I&O 04/30/23 16:40 Temp 36.1 Pulse 112 Resp 18 B/P (MAP) 122/84 (97) Pulse Ox 96 O2 Delivery Room Air Capillary Refill : Progress Note : Progress Note Patient did not have any imaging or labs performed at this time as he just had a CT on 04/26/2023. Patient was provided with Toradol, Reglan and oxycodone while in the ER. Patient thinks that he actually may have passed a stone as he had significant pain relief. He was feeling a lot better and discharged home per his request. I did recommend he keep his appointment with his urologist for further evaluation next week. He was stable upon discharge. Departure Impression Primary Impression: Renal colic on right side Disposition: HOME, SELF-CARE Condition: Stable Departure-Patient Inst. Referrals: DARREN CARNEY MD (PCP/Family) Primary Care Physician Patient Instructions: Renal Colic (DC) Add. Discharge Instructions: Please keep your appointment with Dr. Padron on Wednesday All discharge instructions reviewed with patient and/or family. Voiced understanding. PAVEL SALGUERO DO Apr 30, 2023 16:45
[2023-04-30] MEDS ORDERED: KETOROLAC INJ 30 MG/ML VIAL IVP STA (17:02)
[2023-04-30] MEDS ORDERED: NS IV 1000 ML 1,000 ML IV STA (17:02)
[2023-04-30] MEDS ORDERED: METOCLOPRAMIDE INJ 10 MG/2 ML IVP STA (17:02)
[2023-04-30] MEDS ORDERED: oxyCODONE IMMEDIATE RELEASE 5 MG TABLET PO ONE (17:30)
== END 2023-04-30 17:55 | disposition home or self-care (01) ==
LOC: EDUNIT# 16:37 → ER FS 16:38
DX: N23 Unspecified renal colic (principal); J44.9 Chronic obstructive pulmonary disease, unspecified; Z99.81 Dependence on supplemental oxygen; Z28.310 Unvaccinated for COVID-19; Z91.040 Latex allergy status

== ENCOUNTER 2023-05-03 22:21 | Emergency (ER) | payer MEDICAID ==
[~2023-05-03] VITALS: Ht 198 cm; Wt 110.6 kg
[2023-05-03] MEDS ORDERED: morphine INJ 10 MG/ML 1ML (SYR OR VIAL) IVP STA (22:31)
--- NOTE | 2023-05-03 22:37 | ED General ---
General Chief Complaint: General Problems/Pain Stated Complaint: L SIDE LOWER BACK PAIN Source of Information: Patient Exam Limitations: No Limitations History of Present Illness Date Seen by Provider: May 03, 2023 Time Seen by Provider: 22:23 Initial Comments 53-year-old male with most notable history of recurrent kidney stones coming in due to left flank pain. Started a couple hours ago. He has had intermittent flank pain for the past week or so. He sees a urologist in 12 hours from now for likely stent placement versus stone removal. He has not been vomiting, no fever, dysuria, or any other concerns. Feels exactly the same as prior kidney stones. He had a CT scan within the past week confirming it. Allergies and Home Medications Allergies Coded Allergies: ofloxacin (Verified Allergy, Mild, 10/19/22) acetaminophen (Verified Allergy, Unknown, Hives, 10/19/22) clindamycin (Verified Allergy, Unknown, 10/19/22) gabapentin (Verified Allergy, Unknown, DELUSIONS, 10/19/22) Penicillins (Verified Adverse Reaction, Unknown, Pt has received Ceftriaxone in the past, 10/19/22) aspirin (Verified Adverse Reaction, Unknown, 10/19/22) latex (Verified Adverse Reaction, Unknown, 10/19/22) Uncoded Allergies: TAPE (Allergy, Mild, 07/17/09) Patient Home Medication List Home Medication List Reviewed: Yes Albuterol Sulfate (Proair Respiclick) 90 Mcg Aer.pow.ba, 2 PUFF IH Q4H PRN for SHORTNESS OF BREATH, (Reported) Entered as Reported by: JAVIER LUU on 06/04/211655 Albuterol Sulfate (Proventil Hfa) 90 Mcg Hfa.aer.ad, 6.7 GM INH Q6H Prescribed by: JESSICA DANIELLE on 08/01/222003 Benzonatate (Tessalon Perles) 100 Mg Capsule, 200 MG PO TID Prescribed by: JESSICA DANIELLE on 08/01/222003 Budesonide/Formoterol Fumarate (Budesonide-Formoterol 160-4.5) 10.2 Gm Hfa.aer.ad, 2 PUFF IH BID, (Reported) Entered as Reported by: JAVIER LUU on 06/04/211655 D-Methorphan Hb/Prometh HCl (Promethazine-Dm Syrup) 6.25 Mg-15 Mg/5 Ml Syrup, 5 ML PO Q6H, (Reported) Entered as Reported by: SANDRA DAVID on 10/19/22 1449 Ibuprofen (Ibuprofen) 200 Mg Capsule, 400 MG PO, (Reported) Entered as Reported by: SANDRA DAVID on 10/19/22 1449 Morphine Sulfate (Morphine Sulfate IR Tablet) 15 Mg Tablet, 15 MG PO Q8H PRN for Lung Cancer pain in Chest Prescribed by: SERGE LIGHT on 05/31/21 0526 Ondansetron (Ondansetron Odt) 4 Mg Tab.rapdis, 4 MG PO Q6H PRN for NAUSEA/V OMITING Prescribed by: SERGE LIGHT on 01/31/22 144 Oxycodone HCl/Acetaminophen (Oxycodone-Acetaminophen 10-325) 10 Mg-325 Mg Tablet, 1 EACH PO Q4H PRN for PAIN SEVERE Prescribed by: SERGE LIGHT on 04/26/23 151 Pantoprazole Sodium (Protonix) 40 Mg Tablet.dr, 40 MG PO DAILY, (Reported) Entered as Reported by: CHAPO VENTURA on 06/20/21 1511 Tamsulosin HCl (Flomax) 0.4 Mg Cap, 0.4 MG PO DAILY Prescribed by: SERGE LIGHT on 04/26/23 151 Tiotropium [place] (Spiriva Respimat 2.5MCG/ACTUATION) 4 Gm Mist.inhal, 1 PUFF IH DAILY, (Reported) Entered as Reported by: JAVIER LUU on 06/04/21 1656 Review of Systems Review of Systems Constitutional: No fever EENTM: no symptoms reported Respiratory: no symptoms reported Cardiovascular: no symptoms reported Gastrointestinal: no symptoms reported Genitourinary: see HPI Musculoskeletal: no symptoms reported Skin: no symptoms reported Psychiatric/Neurological: No Symptoms Reported Hematologic/Lymphatic: No Symptoms Reported Immunological/Allergic: no symptoms reported Past Tdmaagj-Nlfsbs-Wkbuwr Hx Patient Social History Tobacco Use?: Yes Tobacco type used: Cigarettes Immunizations Up To Date Tetanus Booster (TDap): Unknown PED Vaccines UTD: Yes First/Initial COVID19 Vaccinat: denies Second COVID19 Vaccination Deonte: denies Third COVID19 Vaccination Date: denies Seasonal Allergies Seasonal Allergies: No Past Medical History Surgery/Hospitalization HX: COPD, lung cancer, pancreatic cancer, pneumonia hx, cholecysectomy, Surgeries: Yes (hernia repair, left testicle injury, brain surgery, cardiac stent) Cardiac, Coronary Stent, Gallbladder, Orthopedic Respiratory: Yes (lung ca, OXYGEN 8L HS, PRN DAYS) COPD Currently Using CPAP: No Currently Using BIPAP: No Cardiac: Yes (STENT) Coronary Artery Disease, Heart Attack Neurological: Yes Seizure Disorder Reproductive Disorders: No Sexually Transmitted Disease: No HIV/AIDS: No Genitourinary: Yes Kidney Stones Gastrointestinal: Yes Gall Bladder Disease Musculoskeletal: No Endocrine: No HEENT: Yes Loss of Vision: Bilateral Cancer: Yes Lung, Pancreatic What Type of Treatment Did You: Chemotherapy, Radiation Psychosocial: Yes PTSD Integumentary: No Blood Disorders: No Adverse Reaction/Blood Tranf: No (N/A) Family Medical History Stroke Physical Exam Vital Signs Vital Signs - First Documented 05/03/23 22:32 Temp 37.1 Pulse 136 Resp 22 B/P (MAP) 153/132 (139) Pulse Ox 100 O2 Delivery Room Air Capillary Refill : Height, Weight, BMI Height: 6'4.00" Weight: 225lbs. 0.0oz. 102.971497pk; 24.00 BMI Method:Stated General Appearance: WD/WN, Moderate Distress Eyes: Bilateral Eye Normal Inspection HEENT: PERRL/EOMI, Normal ENT Inspection, Pharynx Normal Neck: Full Range of Motion, Normal Inspection, Non Tender, Supple Respiratory: Chest Non Tender, Lungs Clear, Normal Breath Sounds, No Accessory Muscle Use, No Respiratory Distress Cardiovascular: Regular Rate, Rhythm, Normal Peripheral Pulses Gastrointestinal: Normal Bowel Sounds, Non Tender, Soft Back: Normal Inspection, CVA Tenderness (L) Extremity: Normal Capillary Refill, Normal Inspection, Normal Range of Motion, Non Tender, No Calf Tenderness, No Pedal Edema Neurologic/Psychiatric: Alert, No Motor/Sensory Deficits, Normal Mood/Affect Skin: Normal Color, Warm/Dry Progress/Results/Core Measures Suspected Sepsis SIRS Temperature: Pulse: Respiratory Rate: Laboratory Tests 05/03/23 22:45: White Blood Count 8.0 Blood Pressure / Mean: Laboratory Tests 05/03/23 22:45: Creatinine 1.18, Platelet Count 248, Total Bilirubin 0.3 Results/Orders Lab Results Laboratory Tests Test 05/03/23 22:45 9/4/23 23:10 Range/Units White Blood Count 8.0 4.3-11.0 10^3/uL Red Blood Count 5.10 4.30-5.52 10^6/uL Hemoglobin 16.4 13.3-17.7 g/dL Hematocrit 47 40-54 % Mean Corpuscular Volume 92 80-99 fL Mean Corpuscular Hemoglobin 32 25-34 pg Mean Corpuscular Hemoglobin Concent 35 32-36 g/dL Red Cell Distribution Width 12.9 10.0-14.5 % Platelet Count 248 130-400 10^3/uL Mean Platelet Volume 9.8 9.0-12.2 fL Immature Granulocyte % (Auto) 0 % Neutrophils (%) (Auto) 74 42-75 % Lymphocytes (%) (Auto) 17 12-44 % Monocytes (%) (Auto) 6 0-12 % Eosinophils (%) (Auto) 2 0-10 % Basophils (%) (Auto) 1 0-10 % Neutrophils # (Auto) 6.0 1.8-7.8 10^3/uL Lymphocytes # (Auto) 1.4 1.0-4.0 10^3/uL Monocytes # (Auto) 0.5 0.0-1.0 10^3/uL Eosinophils # (Auto) 0.2 0.0-0.3 10^3/uL Basophils # (Auto) 0.0 0.0-0.1 10^3/uL Immature Granulocyte # (Auto) 0.0 0.0-0.1 10^3/uL Sodium Level 140 135-145 MMOL/L Potassium Level 3.8 3.6-5.0 MMOL/L Chloride Level 101 98-107 MMOL/L Carbon Dioxide Level 24 21-32 MMOL/L Anion Gap 15 H 5-14 MMOL/L Blood Urea Nitrogen 7 7-18 MG/DL Creatinine 1.18 0.60-1.30 MG/DL Estimat Glomerular Filtration Rate 73 BUN/Creatinine Ratio 6 Glucose Level 140 H 70-105 MG/DL Calcium Level 10.6 H 8.5-10.1 MG/DL Corrected Calcium 8.5-10.1 MG/DL Total Bilirubin 0.3 0.1-1.0 MG/DL Aspartate Amino Transf (AST/SGOT) 17 5-34 U/L Alanine Aminotransferase (ALT/SGPT) 24 0-55 U/L Alkaline Phosphatase 111 40-136 U/L Total Protein 7.2 6.4-8.2 GM/DL Albumin 4.8 H 3.2-4.5 GM/DL Lipase 20 8-78 U/L Urine Color YELLOW Urine Clarity SL CLOUDY Urine pH 5.5 5-9 Urine Specific [place] >=1.030 1.016-1.022 Urine Protein TRACE H NEGATIVE Urine Glucose (UA) NEGATIVE NEGATIVE Urine Ketones TRACE H NEGATIVE Urine Nitrite NEGATIVE NEGATIVE Urine Bilirubin NEGATIVE NEGATIVE Urine Urobilinogen 0.2 < = 1.0 MG/DL Urine Leukocyte Esterase NEGATIVE NEGATIVE Urine RBC (Auto) 3+ H NEGATIVE Urine RBC >100 H /HPF Urine WBC NONE /HPF Urine Squamous Epithelial Cells 5-10 /HPF Urine Crystals PRESENT H /LPF Urine Calcium Oxalate Crystals FEW H /LPF Urine Bacteria NEGATIVE /HPF Urine Casts PRESENT /LPF Urine Hyaline Casts 25-50 H /LPF Urine Mucus LARGE H /LPF Urine Culture Indicated NO My Orders Orders - ERIN YA MD Ed Iv/Invasive Line Start (05/03/23 22:31) Morphine Injection (Morphine Injection (05/03/23 22:31) Ketorolac Injection (Ketorolac Injection (05/03/23 22:45) Ondansetron Injection (Ondansetron Inj (05/03/23 22:45) Cbc With Automated Diff (05/03/23 22:31) Comprehensive Metabolic Panel (05/03/23 22:31) Lipase (05/03/23 22:31) Ua Culture If Indicated (05/03/23 22:31) Rx-Oxycodone/Apap 5-325 Mg (Rx-Percocet (05/03/23 23:30) Rx-Ondansetron Po (Rx-Zofran Po) (05/03/23 23:30) Medications Given in ED Current Medications Medications Dose Ordered Sig/Alis Route Start Time Stop Time Status Last Admin Dose Admin Ketorolac Tromethamine 15 mg ONCE ONCE IVP 05/03/23 22:45 05/03/23 22:46 DC 05/03/23 22:52 15 MG Ondansetron HCl 4 mg ONCE ONCE IVP 05/03/23 22:45 05/03/23 22:46 DC 05/03/23 22:51 4 MG Vital Signs/I&O 05/03/23 22:32 Temp 37.1 Pulse 136 Resp 22 B/P (MAP) 153/132 (139) Pulse Ox 100 O2 Delivery Room Air Capillary Refill : Progress Note : Progress Note 53-year-old male with above history coming in due to left flank pain. ABCs were intact and vitals were stable on presentation. Physical exam with left flank pain. I reviewed the CT scan that was done just about 7 days ago when he had a 5 mm proximal UVJ stone on the left consistent with his pain. An IV was placed and he was given Toradol for pain as well as morphine. He was also given Zofran. Pain significantly improved. He has a follow-up with his urologist at this point in roughly 10 hours. Labs ordered and interpreted by me showing normal WBC, creatinine unremarkable and urinalysis without evidence of infection. I believe he stable for discharge with outpatient follow-up. He was sent home with strict return precautions. Diagnostic Imaging Comments [facility], [place] NAME: DORETHAALEA Latif [facility] REC#: [id number] PT STATUS: REG ER : 1970 PHYSICIAN: SERGE LIGHT MD ADMIT DATE: 04/26/23/ER FS Signed Date of Exam:04/26/23 CT ABDOMEN/PELVIS WO PROCEDURE: CT abdomen and pelvis without contrast. TECHNIQUE: Multiple contiguous axial images were obtained through the abdomen and pelvis without the use of intravenous contrast. Auto Exposure Controls were utilized during the CT exam to meet ALARA standards for radiation dose reduction. INDICATION: Diffuse abdominal pain and rectal pain. COMPARISON: Correlation is made with prior CT from 01/31/2022. FINDINGS: The lung bases are clear. The liver demonstrates diffuse low attenuation consistent with hepatic steatosis. No liver mass is identified. The gallbladder is surgically absent. There is no biliary ductal dilatation. The pancreas and spleen are unremarkable. No adrenal mass is identified. There are nonobstructing calculi in the right kidney, largest 6 mm in size. There is also a 5 mm calculus in the proximal left ureter near the UPJ. No significant hydronephrosis is identified. A low-attenuation lesion in the lower pole left kidney is noted, likely a cyst. Aorta is nonaneurysmal. The bowel loops are normal in caliber. Appendix is unremarkable. There is diverticulosis of the sigmoid colon, but no evidence of acute diverticulitis. There is no ascites. Prostate is unremarkable. There is some generalized bladder wall thickening. IMPRESSION: 1. Hepatic steatosis. 2. Nonobstructing right-sided nephrolithiasis. In addition, there is a 5 mm calculus in the proximal left ureter near the UVJ, without hydronephrosis. 3. Uncomplicated diverticulosis. Dictated by: Dictated on workstation # [id number] Dict: 04/26/23 1433 Trans: 04/26/23 1555 [id number] Interpreted by: NIMISHA NAQVI MD Electronically signed by: NIMISHA NAQVI MD 04/26/23 1555 Departure Impression Primary Impression: Ureterolithiasis Disposition: HOME, SELF-CARE Condition: Stable Departure-Patient Inst. Decision time for Depature: 00:45 Referrals: DARREN CARNEY MD (PCP/Family) Primary Care Physician Patient Instructions: Kidney Stone, Adult ED Add. Discharge Instructions: You do have a 5 mm kidney stone there on the left that was seen on CT the other day. Please follow-up with the urologist today as you stated. As far as a pain medication refill, you can go through your urologist or your primary care provider Work/School Note: Work Release Form Date Seen in the Emergency Department: May 03, 2023 Return to Work: May 05, 2023 Restrictions: Return-No Vomiting(24hrs) ERIN YA MD May 03, 2023 22:37
[2023-05-03] MEDS ORDERED: KETOROLAC INJ 15 MG/ML VIAL IVP ONE (22:45)
[2023-05-03] MEDS ORDERED: ONDANSETRON INJECTION 4 MG/2 ML (SDV) IVP ONE (22:45)
[2023-05-03 23:06] LABS: BASOPHILS % (AUTO) 1 % (0-10); EOSINOPHILS # (AUTO) 0.2 10^3/uL (0.0-0.3); EOSINOPHILS % (AUTO) 2 % (0-10); HEMATOCRIT 47 % (40-54); HEMOGLOBIN 16.4 g/dL (13.3-17.7); LYMPHOCYTES # (AUTO) 1.4 10^3/uL (1.0-4.0); LYMPHOCYTES % (AUTO) 17 % (12-44); MEAN CORPUSCULAR HEMOGLOBIN 32 pg (25-34); MEAN CORPUSCULAR HGB CONC 35 g/dL (32-36); MEAN CORPUSCULAR VOLUME 92 fL (80-99); MEAN PLATELET VOLUME 9.8 fL (9.0-12.2); MONOCYTES # (AUTO) 0.5 10^3/uL (0.0-1.0); MONOCYTES % (AUTO) 6 % (0-12); NEUTROPHILS % (AUTO) 74 % (42-75); PLATELET COUNT 248 10^3/uL (130-400)
[2023-05-03 23:13] LABS: BILIRUBIN,URINE NEGATIVE (NEGATIVE); CLARITY,URINE SL CLOUDY; COLOR,URINE YELLOW; GLUCOSE, URINE (UA) NEGATIVE (NEGATIVE); KETONES,URINE TRACE (NEGATIVE); LEUKOCYTE ESTERASE ,URINE NEGATIVE (NEGATIVE); NITRITE,URINE NEGATIVE (NEGATIVE); PH,URINE 5.5 (5-9); PROTEIN,URINE TRACE (NEGATIVE)
[2023-05-03 23:28] LABS: BACTERIA,URINE NEGATIVE /HPF; CALCIUM OXALATE CRYSTALS,UR FEW /LPF; RBC,URINE >100 /HPF
[2023-05-03 23:29] LABS: SODIUM 140 MMOL/L (135-145)
[2023-05-03 23:29] LABS: HYALINE CASTS, URINE 25-50 /LPF
[2023-05-03 23:30] LABS: ALANINE AMINOTRANSFERASE 24 U/L (0-55); ALBUMIN 4.8 GM/DL (3.2-4.5); ALKALINE PHOSPHATASE 111 U/L (40-136); BILIRUBIN,TOTAL 0.3 MG/DL (0.1-1.0); BUN/CREATININE RATIO 6; CALCIUM 10.6 MG/DL (8.5-10.1); CARBON DIOXIDE 24 MMOL/L (21-32); CHLORIDE 101 MMOL/L (98-107); CREATININE SERUM 1.18 MG/DL (0.60-1.30); GFR ESTIMATED 73; GLUCOSE 140 MG/DL (70-105); LIPASE 20 U/L (8-78); POTASSIUM 3.8 MMOL/L (3.6-5.0); TOTAL PROTEIN 7.2 GM/DL (6.4-8.2)
[2023-05-03] MEDS ORDERED: RX-OXYCODONE/APAP 5-325 MG #4 TAB PK PO PRN (23:30)
[2023-05-03] MEDS ORDERED: RX-ONDANSETRON 4 MG ODT (ZOFRAN) PPK #4 PO STA (23:30)
[2023-05-03 23:38] VITALS: BP 147/84
== END 2023-05-03 23:38 | disposition home or self-care (01) ==
LOC: EDUNIT# 22:21 → ER FS 22:23
DX: N20.1 Calculus of ureter (principal); F17.210 Nicotine dependence, cigarettes, uncomplicated; J44.9 Chronic obstructive pulmonary disease, unspecified; Z99.81 Dependence on supplemental oxygen; Z88.6 Allergy status to analgesic agent; Z90.49 Acquired absence of other specified parts of digestive tract; Z98.890 Other specified postprocedural states; Z87.19 Personal history of other diseases of the digestive system; Z91.040 Latex allergy status; Z28.310 Unvaccinated for COVID-19
CPT/HCPCS: 36415; 80053; 81000; 83690; 85025

== ENCOUNTER 2023-05-04 02:06 | Emergency (ER) | payer MEDICAID ==
[~2023-05-04] VITALS: Ht 198.1 cm; Wt 110.6 kg
[2023-05-04] MEDS ORDERED: HYDROmorphone INJECTION 2 MG/ML VIAL IV ONE (02:15)
--- NOTE | 2023-05-04 02:37 | ED GU-Male ---
General Chief Complaint: - Reproductive Stated Complaint: KIDNEY STONES Source: patient, EMS, old records History of Present Illness Date Seen by Provider: May 04, 2023 Time Seen by Provider: 02:09 Initial Comments 53-year-old male with past medical history of recurrent kidney stones coming in due to left flank pain. He was discharged from the ER a couple hours ago due to pain from a kidney stone on the left side. He has an appointment with his surgeon where he is supposed to show up in roughly 7 hours to get this kidney stone removed. EMS placed an IV and they give him 100 mcg of fentanyl. He had already received morphine during his previous ER visit, Toradol, Zofran, and he went home with oxycodone. He took 2 of the oxycodone prior to calling EMS this time. Denies any fever, dysuria, abdominal pain. Allergies and Home Medications Allergies Coded Allergies: ofloxacin (Verified Allergy, Mild, 10/19/22) acetaminophen (Verified Allergy, Unknown, Hives, 10/19/22) clindamycin (Verified Allergy, Unknown, 10/19/22) gabapentin (Verified Allergy, Unknown, DELUSIONS, 10/19/22) Penicillins (Verified Adverse Reaction, Unknown, Pt has received Ceftriaxone in the past, 10/19/22) aspirin (Verified Adverse Reaction, Unknown, 10/19/22) latex (Verified Adverse Reaction, Unknown, 10/19/22) Uncoded Allergies: TAPE (Allergy, Mild, 07/17/09) Patient Home Medication List Home Medication List Reviewed: Yes Albuterol Sulfate (Proair Respiclick) 90 Mcg Aer.pow.ba, 2 PUFF IH Q4H PRN for SHORTNESS OF BREATH, (Reported) Entered as Reported by: JAVIER LUU on 06/04/21 165 Albuterol Sulfate (Proventil Hfa) 90 Mcg Hfa.aer.ad, 6.7 GM INH Q6H Prescribed by: EJSSICA DANIELLE on 08/01/222003 Benzonatate (Tessalon Perles) 100 Mg Capsule, 200 MG PO TID Prescribed by: JESSICA DANIELEL on 08/01/222003 Budesonide/Formoterol Fumarate (Budesonide-Formoterol 160-4.5) 10.2 Gm Hfa.aer.ad, 2 PUFF IH BID, (Reported) Entered as Reported by: JAVIER LUU on 06/04/21 165 D-Methorphan Hb/Prometh HCl (Promethazine-Dm Syrup) 6.25 Mg-15 Mg/5 Ml Syrup, 5 ML PO Q6H, (Reported) Entered as Reported by: SANDRA DAVID on 10/19/22 144 Ibuprofen (Ibuprofen) 200 Mg Capsule, 400 MG PO, (Reported) Entered as Reported by: SANDRA DAVID on 10/19/22 144 Morphine Sulfate (Morphine Sulfate IR Tablet) 15 Mg Tablet, 15 MG PO Q8H PRN for Lung Cancer pain in Chest Prescribed by: SERGE LIGHT on 05/31/21 0526 Ondansetron (Ondansetron Odt) 4 Mg Tab.rapdis, 4 MG PO Q6H PRN for NAUSEA/VOMITING Prescribed by: SERGE LIGHT on 01/31/22 144 Oxycodone HCl/Acetaminophen (Oxycodone-Acetaminophen 10-325) 10 Mg-325 Mg Tablet, 1 EACH PO Q4H PRN for PAIN SEVERE Prescribed by: SERGE LIGHT on 04/26/23 1517 Pantoprazole Sodium (Protonix) 40 Mg Tablet.dr, 40 MG PO DAILY, (Reported) Entered as Reported by: CHAPO VENTURA on 06/20/21 151 Tamsulosin HCl (Flomax) 0.4 Mg Cap, 0.4 MG PO DAILY Prescribed by: SERGE LIGHT on 04/26/23 151 Tiotropium Cameron (Spiriva Respimat 2.5MCG/ACTUATION) 4 Gm Mist.inhal, 1 PUFF IH DAILY, (Reported) Entered as Reported by: JAVIER LUU on 06/04/211655 Review of Systems Review of Systems Constitutional: No fever EENTM: no symptoms reported Respiratory: no symptoms reported Cardiovascular: no symptoms reported Gastrointestinal: no symptoms reported Genitourinary: see HPI Musculoskeletal: no symptoms reported Skin: no symptoms reported Psychiatric/Neurological: No Symptoms Reported Endocrine: No Symptoms Reported Past Mwvxoqc-Xqlfyz-Zllfls Hx Patient Social History Tobacco Use?: Yes Tobacco type used: Cigarettes Smoking Status: Current Everyday Smoker Use of E-Cig and/or Vaping dev: No Substance use?: Yes Substance type: Marijuana Substance frequency: Daily Alcohol Use?: No Immunizations Up To Date Tetanus Booster (TDap): Unknown PED Vaccines UTD: Yes First/Initial COVID19 Vaccinat: denies Second COVID19 Vaccination Deonte: denies Third COVID19 Vaccination Date: denies Seasonal Allergies Seasonal Allergies: No Past Medical History Surgery/Hospitalization HX: COPD, lung cancer, pancreatic cancer, pneumonia hx, cholecysectomy, Surgeries: Yes (hernia repair, left testicle injury, brain surgery, cardiac stent) Cardiac, Coronary Stent, Gallbladder, Orthopedic Respiratory: Yes (lung ca, OXYGEN 8L HS, PRN DAYS) COPD Currently Using CPAP: No Currently Using BIPAP: No Cardiac: Yes (STENT) Coronary Artery Disease, Heart Attack Neurological: Yes Seizure Disorder Reproductive Disorders: No Sexually Transmitted Disease: No HIV/AIDS: No Genitourinary: Yes Kidney Stones Gastrointestinal: Yes Gall Bladder Disease Musculoskeletal: No Endocrine: No HEENT: Yes Loss of Vision: Bilateral Cancer: Yes Lung, Pancreatic What Type of Treatment Did You: Chemotherapy, Radiation Psychosocial: Yes PTSD Integumentary: No Blood Disorders: No Adverse Reaction/Blood Tranf: No (N/A) Family Medical History Stroke Physical Exam Vital Signs Vital Signs - First Documented 05/04/23 02:09 Temp 36.3 Pulse 97 Resp 24 B/P (MAP) 164/85 (111) Pulse Ox 97 O2 Delivery Room Air Capillary Refill : Height, Weight, BMI Height: 6'4.00" Weight: 225lbs. 0.0oz. [id number]; 28.00 BMI Method:Stated General Appearance: WD/WN, no apparent distress HEENT: PERRL/EOMI, normal ENT inspection, pharynx normal Neck: non-tender, full range of motion, supple, normal inspection Cardiovascular: regular rate, rhythm, no edema, no murmur Respiratory: chest non-tender, lungs clear, normal breath sounds, no respiratory distress, no accessory muscle use Gastrointestinal: normal bowel sounds, non tender, soft; No distended, No guarding, No rebound Back: normal inspection, CVA tenderness (L) Extremities: normal range of motion, non-tender, normal inspection, no pedal edema, no calf tenderness, normal capillary refill Neurologic/Psychiatric: no motor/sensory deficits, alert, normal mood/affect Skin: normal color, warm/dry Progress/Results/Core Measures Suspected Sepsis SIRS Temperature: Pulse: Respiratory Rate: Blood Pressure / Mean: Results/Orders My Orders Orders - ERIN YA MD Hydromorphone Injection (Hydromorphone (05/04/23 02:15) Droperidol Injection (Ed Only) (Droperid (05/04/23 02:45) Hydromorphone Injection (Hydromorphone (05/04/23 02:45) Oxycodone Immediate Rel Tablet (Oxycodon (05/04/23 03:15) Oxycodone Immediate Rel Tablet (Oxycodon (05/04/23 03:18) Medications Given in ED Current Medications Medications Dose Ordered Sig/Alis Route Start Time Stop Time Status Last Admin Dose Admin Droperidol 2.5 mg ONCE ONCE IV 05/04/23 02:45 05/04/23 02:46 DC 05/04/23 02:44 2.5 MG Hydromorphone HCl 0.5 mg ONCE ONCE IV 05/04/23 02:15 05/04/23 02:16 DC 05/04/23 02:19 0.5 MG Hydromorphone HCl 0.5 mg ONCE PRN IV 05/04/23 02:45 05/04/23 03:34 DC 05/04/23 02:44 0.5 MG Oxycodone HCl 10 mg ONCE PRN PO 05/04/23 03:15 05/04/23 03:34 DC 05/04/23 03:27 10 MG Vital Signs/I&O 05/04/23 05/04/23 02:09 03:30 Temp 36.3 36.3 Pulse 97 86 Resp 24 20 B/P (MAP) 164/85 (111) 101/56 Pulse Ox 97 94 O2 Delivery Room Air Room Air Capillary Refill : Progress Note : Progress Note 53-year-old male with above history coming in due to flank pain secondary to kidney stones. ABCs were intact and vitals were stable on presentation. Physical exam with left flank pain. He was seen in the ER earlier tonight, his pain was controlled and he was discharged home comfortable. Pain unfortunately came back and he called 911. They gave fentanyl, on arrival here we gave Dilaudid x2 with reassessment. He received droperidol for nausea. Symptoms went from severe pain to 0 out of 10 pain. Patient then requesting to be discharged home. He has an appointment that he needs to drive to in the next 4 hours to check in for his preop with his urologist. Creatinine was normal a couple hours ago as well as his urinalysis without evidence of infection, just had blood. He has family that can drive him. I believe he is stable for discharge with outpatient follow-up. He was sent home with strict return precautions. Departure Impression Primary Impression: Ureterolithiasis Disposition: HOME, SELF-CARE Condition: Stable Departure-Patient Inst. Decision time for Depature: 03:20 Referrals: DARREN CARNEY MD (PCP/Family) Primary Care Physician Patient Instructions: Kidney Stone, Adult ED Add. Discharge Instructions: Have a family member drive you to your urology appointment here in a couple hours, especially given the medication you received, you should not be driving. If having issues, your family could always try to drive you there sooner to see if they can get you in sooner. ERIN YA MD May 04, 2023 02:37
[2023-05-04] MEDS ORDERED: HYDROmorphone INJECTION 2 MG/ML VIAL IV PRN (02:45)
[2023-05-04] MEDS ORDERED: DroPERidol INJECTION 5 MG/2 ML (ED ONLY!) IV ONE (02:45)
[2023-05-04] MEDS ORDERED: oxyCODONE IMMEDIATE RELEASE 5 MG TABLET PO PRN (03:15)
[2023-05-04] MEDS ORDERED: oxyCODONE IMMEDIATE RELEASE 5 MG TABLET ONE (03:18)
[2023-05-04 03:30] VITALS: BP 101/56
== END 2023-05-04 03:30 | disposition home or self-care (01) ==
LOC: EDUNIT# 02:06 → ER FS 02:09
DX: N20.1 Calculus of ureter (principal); F17.210 Nicotine dependence, cigarettes, uncomplicated; Z98.890 Other specified postprocedural states; Z90.49 Acquired absence of other specified parts of digestive tract; Z91.040 Latex allergy status
CPT/HCPCS: 99283

== ENCOUNTER → 2023-07-09 | Outpatient (CLI) | payer MEDICAID ==
--- NOTE | 2023-07-09 17:59 | Diagnostic Imaging Report ---
INDICATION: History of nephrolithiasis and previous lithotripsy. COMPARED with [facility] 03/25/[address] CT 04/26/2023. There are clips at the gallbladder fossa. Stones at the midportion of the right kidney present at prior CT are imperceptible at this exam. The prior upper pole calculi seen on the earlier radiograph cannot be visualized. No appreciable stone along the course of either ureter. The bowel gas pattern unremarkable. IMPRESSION: No visible urolithiasis. Dictated by: Dictated on workstation # [id number]
== END ==
LOC: RAD FS 10:07
PROVIDERS: ATTEND Urology
DX: Z87.442 Personal history of urinary calculi (principal)
CPT/HCPCS: 74018